=== PATIENT | female | born 1945 | race Two or more races ===

== ENCOUNTER 2020-10-01 13:48 | Inpatient (IN) | payer MEDICARE, MEDICAID, SELFPAY ==
[2020-10-01 14:08] VITALS: BP 134/72; PULSE 82; RESP 16; TEMP 37.5; O2SAT 95; BMI 42.2
--- NOTE | 2020-10-01 14:52 | XR_ITS ---
EXAMINATION: XR CHEST CLINICAL INFORMATION: Covid positive. Dizziness and generalized weakness. Productive cough. COMPARISON: March 19, 2018 TECHNIQUE: AP portable view of the chest was obtained. FINDINGS: There are bilateral regions of peripheral airspace disease most prominent at the left base. Heart normal size. No evidence of pulmonary edema. No pneumothorax or significant pleural effusion. XR/XR chest 1V IMPRESSION: Bilateral regions of airspace disease consistent with pneumonia.
--- NOTE | 2020-10-01 14:53 | ECG_ITS ---
Test Reason : UPPER RESPITORY Blood Pressure : / mmHG Vent. Rate : 090 BPM Atrial Rate : 090 BPM P-R Int : 190 ms QRS Dur : 084 ms QT Int : 368 ms P-R-T Axes : 080 -10 033 degrees QTc Int : 450 ms Normal sinus rhythm Normal ECG When compared with ECG of 18-DEC-2018 07:37, No significant change was found Referred By: Pam Barth Electronically Signed By:TAMMI DANIELSON MD
--- NOTE | 2020-10-01 14:53 | CT_ITS ---
EXAMINATION: CT HEAD WITHOUT CONTRAST CLINICAL INFORMATION: Generalized weakness and dizziness COMPARISON: None TECHNIQUE: Contiguous axial imaging was performed from the skull base to vertex without intravenous administration of contrast. This CT examination was performed using dose optimization techniques as appropriate, variously including the following: *Automated exposure control *Adjustment of mA and/or kV according to patient size (this includes techniques or standardized protocols for targeted exams where dose is matched to indication/reason for exam; i.e. extremities or head) *Use of iterative reconstruction technique DLP: 776 mGy-cm FINDINGS: There is no evidence of an extra-axial collection. There is no evidence of intra-axial or extra-axial hemorrhage. The ventricles and extra-axial CSF spaces are prominent suggestive of generalized atrophy. There is nonspecific periventricular white matter disease. No mass, mass effect or infarct is seen. Review at bone windows is normal. No skull fracture is seen. Visualized paranasal sinuses, mastoid air cells and middle ears are clear. There is a high attenuation soft tissue density in the scalp measuring 2 mm adjacent to the left occipital bone. It is uncertain whether this represents a calcification or could represent a soft tissue foreign body. Clinical correlation recommended. CT/CT head/brain wo con IMPRESSION: No acute intracranial findings. Mild generalized atrophy and nonspecific periventricular white matter disease.
[2020-10-01] MEDS: 0.9 % Sodium Chloride 1,000 ML 500 ML IVCONT (15:44)
[2020-10-01 15:46] VITALS: BP 127/70; PULSE 80; RESP 16; TEMP 37.8; O2SAT 95
[2020-10-01] MEDS: Acetaminophen 325 MG TABLET 975 MG PO (15:52)
[2020-10-01 16:00] LABS: INTERNATIONAL NORM RATIO 1.1 (0.9-1.1); Prothrombin Time 13.1 SEC (10.8-13.0)
[2020-10-01 16:04] LABS: Hemoglobin 10.6 g/dl (12.0-16.0); PLT CLUMP 1; Red Cell Distribution Width 12.5 % (11.0-16.0)
[2020-10-01 16:07] LABS: Hematocrit 32.4 % (37-47); Mean Corpuscular HGB Conc 32.7 g/dl (31.0-35.0); Mean Corpuscular Hemoglobin 31.7 pg (27.0-33.0); Mean Platelet Volume 11.3 fL (9.4-12.3); Platelet Count 143 X10*3/uL (160-400); Red Blood Count 3.34 X10*6/uL (4.20-5.50); White Blood Count 6.2 X10*3/uL (4.8-10.8)
--- NOTE | 2020-10-01 16:08 | ED_ITS ---
HPI - General Adult General Chief complaint: Upper Respiratory Symptoms Stated complaint: weakness, covid + Time Seen by Provider: 10/01/20 14:43 Source: patient Mode of arrival: ambulatory Limitations: language barrier (Urdu-speaking) History of Present Illness HPI narrative: 75yoF c PMHx of diabetes, hypertension and HLD presenting to the ED c c/o general weakness, dizziness, decreased appetite, generalized fatigue, body aches, fevers at 38 degrees and productive cough. She reports she was positive for COVID confirmed today. She reports she was tested on Sunday. Denies any other associated symptoms. Denies recent travel. Denies changes in vision, nausea/vomiting, chest pain or shortness of breath, abdominal pain or constipation. Related Data Home Medications Medication Instructions Recorded Confirmed amlodipine 2.5 mg tablet mg PO 09/22/20 09/22/20 dulaglutide 0.75 mg/0.5 mL mg SUBCUT 09/22/20 09/22/20 subcutaneous pen injector famotidine 40 mg tablet mg PO 09/22/20 09/22/20 furosemide 40 mg tablet mg PO 09/22/20 09/22/20 gabapentin 100 mg capsule mg PO 09/22/20 09/22/20 insulin glargine 100 unit/mL (3 unit SUBCUT 09/22/20 09/22/20 mL) subcutaneous pen insulin lispro 100 unit/mL unit SUBCUT 09/22/20 09/22/20 subcutaneous pen levothyroxine 25 mcg tablet mcg PO 09/22/20 09/22/20 losartan 100 mg tablet mg PO 09/22/20 09/22/20 metoprolol tartrate 25 mg tablet mg PO 09/22/20 09/22/20 omeprazole 20 mg capsule,delayed mg PO 09/22/20 09/22/20 release pen needle, diabetic 32 gauge x #50 ea 09/22/20 09/22/20 rosuvastatin 10 mg tablet mg PO 09/22/20 09/22/20 Allergies Allergy/AdvReac Type Severity Reaction Status Date / Time No Known Allergies Allergy Verified 09/22/20 16:21 [No Known Allergies*] Review of Systems Review of Systems: Constitutional : + Fever, + Chills, + Fatigue, + Malaise ENT/Mouth : No Ear Pain, No Nasal Congestion, No Sinus Pain, No sore throat, No Rhinorrhea Eyes: No Eye Pain, No Swelling, No Redness, No Foreign Body, No Discharge, No Vision Changes Cardiovascular : No Chest Pain, No SOB, No Dyspnea on Exertion, No Orthopnea, No Palpitations Respiratory : + Cough, + Sputum, No Wheezing, No Dyspnea Gastrointestinal : No Nausea, No Vomiting, + Diarrhea, No Constipation, No abdominal Pain, No Hematochezia, No Melena Genitourinary : No Dysuria, No Urinary Frequency, No Urinary Incontinence, No Urgency, No Flank Pain Musculoskeletal : No joint pain, + Myalgias Skin : No lacerations Neuro : No Numbness, No Paresthesias, No Loss of Consciousness, + Dizziness, No Headache Yes all other systems are reviewed and are negative [facility] Past Medical History Attestation statement: The following information was validated with the patient. Medical History Arthritis History of hysteroscopy History of right breast cancer HTN (hypertension) Hyperlipemia Osteoporosis Type 2 diabetes mellitus Surgical History H/O eye surgery H/O right mastectomy History of tubal ligation Social History Social History Alcohol intake: never Smoking Status: Never smoker Use of substances other than those prescribed or required for medical reasons: No Advance Directives: No Advance Directives Information Provided: Yes Sexual orientation: Straight/Heterosexual Gender identity: female Physical Exam Vital Signs: Vital Signs: Last Vital Signs Temp 100.0 F 10/01/20 15:46 Pulse 80 10/01/20 15:46 Resp 16 10/01/20 15:46 BP 127/70 10/01/20 15:46 Pulse Ox 95 10/01/20 15:46 Body Mass Index 42.2 Vital signs have been reviewed as normal and appeared to be correct. Blood pressure normal. Heart rate normal. Respiration rate normal. Temperature normal. Oxygen saturation normal. Appearance: Alert. Oriented X3. No acute distress. Head: Normal external exam. Normocephalic. Atraumatic. Able to rotate head bilaterally. Eyes: PERRLA. EOMI. No nystagmus noted. Conjunctiva and sclera normal. Eyelids normal. Corneal reflex normal. ENT: EAC normal. TM's Normal. Hearing normal. Pharynx normal. Uvula midline. tongue midline. Moist mucous membranes. No trismus noted. No drooling noted. No muffled voice noted. Neck: Normal inspection. Neck supple. FROM. No adenopathy. Thyroid Normal. No meningeal signs. No neck mass noted. CVS: Normal heart rate and rhythm. Heart sound normal. No murmurs noted. Pulses normal throughout. Respiratory: No respiratory distress. Painless inspiration. Breath sounds normal. No wheezes/rales/rhonchi noted. Chest nontender. No accessory muscle usage noted or decreased air movement noted. Abdomen: Soft and nontender. Bowel sounds normal in all 4 quadrants. No distention noted. No organomegaly noted. No visible injury noted. Back: No CVA tenderness. Full range of motion noted. Skin: Skin warm and dry. Normal skin color. Normal skin turgor. No rashes/lesions/lacerations noted. Extremities: No lower extremity edema. Extremities exhibit normal range of motion. Extremities nontender. Able to shrug shoulders bilaterally and keep up against resistance. Neuro: Oriented X 3. No motor deficit. No sensory deficit. Reflexes normal. Moving all extremities. No focal motor deficits. Cranial nerves II-XI intact bilaterally. Facial strength normal. Normal cognition. Speech normal. Gait normal. Strength 5/5 throughout. No pronator drift. No tremor noted. No fasciculations noted. Muscle tone normal throughout. No asterixis noted. [id number] test normal. Heel to lehman test normal. Tandem gait normal. Does not sway with eyes open. Romberg test negative. Rapid alternating movement upper extremity normal. Rapid alternating movement lower extremity normal. Hand drop from overhead-Mrs. face. No rigidity noted. NIHSS score 0. Course Course Course Narrative: 14:52PM - 75yoF c PMHx of diabetes, hypertension and HLD presenting to the ED c c/o general weakness, dizziness, decreased appetite, generalized fatigue, body aches, fevers at 38 degrees and productive cough. She reports she was positive for COVID confirmed today. - Concern for CVA vs complications from covid including pna vs electrolyte abnormality - Plan: Labs, CT scan of brain, EKG, CXR. Provide 500 mL of IV fluids as patient requested. And re-evaluate Reevaluation(s) Reevaluation #1: - Patient's troponin was elevated at 27.5 although EKG is normal sinus rhythm with nonspecific ST and T-wave abnormalities otherwise no acute ischemic changes noted. And patient did not complain of any chest pain and is still denying active chest pain. Therefore will repeat a troponin at 18:40PM. - chest x-ray revealed bilateral regions of airspace disease consistent with pneumonia although patient is not hypoxic at this time. Will continue to monitor. Time: 16:34 Medical Decision Making Medical Records Medical records reviewed: Yes I reviewed the patient's medical records. Lab Data Lab results reviewed: Yes I reviewed the patient's lab results. Result diagrams: 10/01/20 15:41 10/01/20 15:41 Labs: Lab Results 10/01/20 10/01/20 Range/Units 15:41 15:41 PT 13.1 H (10.8-13.0) SEC INR 1.1 (0.9-1.1) Sodium Cancelled Potassium Cancelled Chloride Cancelled Carbon Dioxide Cancelled Anion Gap Cancelled BUN Cancelled Creatinine Cancelled Estim Creat Clear Calc Cancelled Estimated GFR Cancelled Random Glucose Cancelled Calcium Cancelled Magnesium Cancelled Total Bilirubin Cancelled Direct Bilirubin Cancelled AST Cancelled ALT Cancelled Alkaline Phosphatase Cancelled Total Protein Cancelled Albumin Cancelled Imaging Data Chest x-ray: Attestation: I personally reviewed and interpreted this imaging study as follows: Radiologist's impression: FINDINGS: There are bilateral regions of peripheral airspace disease most prominent at the left base. Heart normal size. No evidence of pulmonary edema. No pneumothorax or significant pleural effusion. XR/XR chest 1V IMPRESSION: Bilateral regions of airspace disease consistent with pneumonia. ECG Data Attestation: I personally reviewed and interpreted this ECG as follows: Interpretation: Normal sinus rhythm with a ventricular rate of [address] and T-wave abnormality normal QRS/QT/QTC interval. No acute ischemic changes. Unable to compare to prior as system is down. Discharge Plan Discharge Prescriptions: No Action (DME) pen needle, diabetic 32 gauge x /32 needle See Rx Instructions ea .ROUTE .MEDSUPPLY Qty: 50 RF: 0 metoprolol tartrate 25 mg tablet PO RF: 0 rosuvastatin 10 mg tablet PO RF: 0 losartan 100 mg tablet PO RF: 0 gabapentin 100 mg capsule PO RF: 0 omeprazole 20 mg capsule,delayed release(DR/EC) PO RF: 0 levothyroxine 25 mcg tablet PO RF: 0 amlodipine 2.5 mg tablet PO RF: 0 Trulicity 0.75 mg/0.5 mL pen injector subcut RF: 0 furosemide 40 mg tablet PO RF: 0 Lantus Solostar U-100 Insulin 100 unit/mL (3 mL) insulin pen subcut RF: 0 famotidine 40 mg tablet PO RF: 0 insulin lispro 100 unit/mL insulin pen subcut RF: 0
[2020-10-01 16:20] LABS: B Type Natriuretic Peptide 61 pg/mL (<100)
[2020-10-01 16:24] LABS: Troponin-I High Sensitivity 27.5 ng/L (<3.5-17.0)
[2020-10-01 16:57] LABS: Atypical Lymph Absolute Manual 0.4 x10*3/uL; Atypical Lymphs Percent Manual 7 % (0-6); Band Neutrophils Percent 8 % (3-5); Lymphocytes Absolute Manual 0.8 X10*3/uL (0.6-4.8); Lymphocytes Percent Manual 13 % (20-40); Monocytes Absolute Manual 0.2 X10*3/uL (0.0-1.2); Monocytes Percent Manual 4 % (2-11); Neutrophils Absolute Manual 4.7 X10*3/uL (2.2-7.9); Neutrophils Percent Manual 68 % (45-73); Nucleated Red Blood Cells 1 /100WBC (0-0)
[2020-10-01 17:00] LABS: Hypochromasia 1+; RBC Morphology NOTED
[2020-10-01 17:01] LABS: Platelet Estimate NORMAL (NORMAL)
[2020-10-01 17:02] LABS: Large Platelet PRESENT; Platelet Morphology Comment NORMAL
[2020-10-01 18:01] VITALS: BP 137/70; PULSE 83; RESP 17; O2SAT 94
[2020-10-01 18:29] LABS: Anion Gap 16 (12-20); Blood Urea Nitrogen 40 mg/dL (9-16); Calcium 7.7 mg/dL (8.4-10.2); Carbon Dioxide 21 mmol/L (22-29); Chloride 99 mmol/L (96-108); Creatinine Clr Calc Pharmacy 23.5; Estimated Glomerular Filt Rate 18; Glucose Random 317 mg/dL (60-115); Potassium 4.4 mmol/l (3.3-5.1); Sodium 132 mmol/L (135-145)
[2020-10-01 18:51] LABS: Troponin-I High Sensitivity 23.6 ng/L (<3.5-17.0)
[2020-10-01 19:13] VITALS: BP 138/78; PULSE 86; RESP 20; O2SAT 95
[2020-10-01 19:22] LABS: C Reactive Protein 13.36 mg/dL (< or = 0.50); Lactate Dehydrogenase 325 U/L (122-220)
[2020-10-01 19:44] LABS: Ferritin 927 ng/mL (10-250)
[2020-10-01 19:48] LABS: Glucose Urine UA 250 MG/DL (NEG); Leukocyte Esterase Urine 1+ (NEG); Nitrite Urine NEG (NEG); Urine Blood 1+ (NEG); Urine Ketones NEG (NEG); Urine Protein 2+ MG/DL (NEG-TRACE)
[2020-10-01 19:50] LABS: Appearance Urine HAZY; Color Urine STRAW
[2020-10-01 19:59] LABS: Squamous Epithelial Cell Urine 1+ /LPF
[2020-10-01 20:00] LABS: Bacteria Urine 3+ /LPF; Renal Epithelial Cells Urine TRACE /LPF
--- NOTE | 2020-10-01 20:01 | PM.IMHP ---
History of Present Illness Date of Service: 10/01/20 <TATO Guillen - Last Filed: 10/01/20 21:48> Chief Complaint: fatigue <TATO Guillen - Last Filed: 10/01/20 21:48> this is a 75-year-old Uz[place]-speaking female who presents to the emergency department 1 week history of fatigue. Her son-in-law who is her [employer] SALES CLERK has recently tested positive for COVID-19. The past 1 week she has been feeling tired with intermittent dizziness and associated chills. She went to a drive up COVID testing site this past Sunday. her PCP informed her today that her tested returned positive. In the emergency department chest x-ray showed bilateral pneumonia. She initially denied any shortness of breath or significant cough And was not requiring any oxygen until she ambulated to and from the bathroom. At that time her oxygen saturation dropped to 89 % on room air. Lab work was significant for creatinine of 2.65. She received gentle IV fluid and the decision was made to admit her for further management. <TATO Guillen - Last Filed: 10/01/20 21:48> Review of Systems Review of Systems: Yes all other systems are reviewed and are negative <TATO Guillen - Last Filed: 10/01/20 21:48> Constitutional: Constitutional: Reports chills and Reports lethargy <TATO Guillen - Last Filed: 10/01/20 21:48> Cardiovascular: Cardiovascular: Denies chest pain and Denies palpitations <TATO Guillen - Last Filed: 10/01/20 21:48> Respiratory: Respiratory: Denies cough <TATO Guillen - Last Filed: 10/01/20 21:48> Endocrine: Endocrine: Denies palpitations <TATO Guillen - Last Filed: 10/01/20 21:48> [facility] Medical History: Medical History Arthritis History of hysteroscopy History of right breast cancer HTN (hypertension) Hyperlipemia Hypothyroidism Type 2 diabetes mellitus <TATO Guillen Last Filed: 10/01/20 21:48> Functional capacity: uses cane/walker <TATO Guillen - Last Filed: 10/01/20 21:48> Pertinent family history: No history of early coronary artery disease <TATO Guillen - Last Filed: 10/01/20 21:48> Surgical History: Surgical History H/O eye surgery H/O right mastectomy History of tubal ligation <TATO Guillen - Last Filed: 10/01/20 21:48> Social History: Social History Household Members: Family Housing: Apartment Do you presently have visiting nurse or other home services: Yes Alcohol intake: never Smoking Status: Never smoker Use of substances other than those prescribed or required for medical reasons: No Currently Displaying Signs/Symptoms of Drug Intoxication Withdrawal: No Have you been hit, kicked, punched, or otherwise hurt by someone within the past year? If so, by whom?: No Do you feel safe in your current relationship?: Yes Is there a partner from a previous relationship who is making you feel unsafe now?: No Are you made to feel afraid or neglected: No Advance Directives: No Advance Directives Information Provided: Yes Do you have thoughts of harming others: None Do you have a plan to hurt others: No Plan Recently lost weight without trying: No service: No Current occupational status: disabled Sexual orientation: Straight/Heterosexual Gender identity: female <TATO Guillen Last Filed: 10/01/20 21:48> Meds Allergies/Adverse reactions: Allergies Allergy/AdvReac Type Severity Reaction Status Date / Time No Known Allergies Allergy Verified 10/04/20 16:58 [No Known Allergies*] <TATO Guillen Last Filed: 10/01/20 21:48> Home medications: Home Medications Medication Instructions Recorded Confirmed Type amlodipine 2.5 mg tablet 2.5 mg PO DAILY 09/22/20 10/04/20 History dulaglutide 0.75 mg/0.5 mL 0.75 mg SUBCUT WE 09/22/20 10/04/20 History subcutaneous pen injector furosemide 40 mg tablet 40 mg PO BID 09/22/20 10/04/20 History gabapentin 100 mg capsule 100 mg PO BEDTIME 09/22/20 10/04/20 History insulin glargine 100 unit/mL (3 15 unit SUBCUT DAILY 09/22/20 10/04/20 History mL) subcutaneous pen levothyroxine 25 mcg tablet 25 mcg PO DAILY 09/22/20 10/04/20 History losartan 100 mg tablet 100 mg PO DAILY 09/22/20 10/04/20 History metoprolol tartrate 25 mg tablet 25 mg PO BID 09/22/20 10/04/20 History omeprazole 20 mg capsule,delayed 20 mg PO DAILY 09/22/20 10/04/20 History release pen needle, diabetic 32 gauge x #50 ea 09/22/20 10/04/20 History rosuvastatin 10 mg tablet 10 mg PO BEDTIME 09/22/20 10/04/20 History aspirin 81 mg PO DAILY 10/01/20 10/04/20 History <TATO Guillen - Last Filed: 10/01/20 21:48> Physical Exam Vital Signs and Narrative: Vital Signs: Last Vital Signs Temp 100.0 F 10/01/20 15:46 Pulse 86 10/01/20 19:13 Resp 20 10/01/20 19:13 BP 138/78 10/01/20 19:13 Pulse Ox 95 10/01/20 19:13 Body Mass Index 42.2 <TATO Guillen Last Filed: 10/01/20 21:48> Const: Nutritional Appearance: well nourished <TATO Guillen Last Filed: 10/01/20 21:48> Orientation/consciousness: patient oriented x3 <TATO Guillen Last Filed: 10/01/20 21:48> HENMT: Head: Yes normocephalic and Yes atraumatic <TATO Guillen Last Filed: 10/01/20 21:48> Eyes: Sclerae: sclerae normal <TATO Guillen Last Filed: 10/01/20 21:48> Chest: Chest palpation & inspection: normal inspection of the chest <TATO Guillen Last Filed: 10/01/20 21:48> Resp: Effort & Inspection: labored <TATO Guillen - Last Filed: 10/01/20 21:48> Cardio: Rate: regular rate <TATO Guillen - Last Filed: 10/01/20 21:48> Rhythm: regular rhythm <TATO Guillen - Last Filed: 10/01/20 21:48> GI: Palpation (GI): Soft to palpation and nontender <TATO Guillen - Last Filed: 10/01/20 21:48> Skin: General skin exam: no rashes or lesions noted <TATO Guillen - Last Filed: 10/01/20 21:48> Neuro: General: patient oriented x3 <TATO Guillen - Last Filed: 10/01/20 21:48> Cranial nerves: Yes CN's II-XII intact bilaterally and Yes Bilaterally intact EOM present <TATO Guillen - Last Filed: 10/01/20 21:48> Extrem: General: Yes normal to inspection <TATO Guillen - Last Filed: 10/01/20 21:48> Results Labs CBC and Chem 7: : 10/03/20 06:48 10/03/20 06:48 <TATO Guillen - Last Filed: 10/01/20 21:48> Labs: Laboratory Results - last 24 hr 10/01/20 10/01/20 10/01/20 15:41 15:41 15:41 WBC 6.2 RBC 3.34 L Hgb 10.6 L Hct 32.4 L MCV 97.0 MCH 31.7 MCHC 32.7 RDW 12.5 Plt Count 143 L MPV 11.3 Immature Gran % (Auto) Cancelled Neut % (Auto) Cancelled Lymph % (Auto) Cancelled Pratt % (Auto) Cancelled Eos % (Auto) Cancelled Baso % (Auto) Cancelled Lymph # (Auto) Cancelled Pratt # (Auto) Cancelled Eos # (Auto) Cancelled Baso # (Auto) Cancelled Abs Immat Gran (auto) Cancelled Absolute Neuts (auto) Cancelled Absolute Nucleated RBC 0.000 Nucleated RBC % (auto) 0.0 Neutrophils % (Manual) 68 Band Neutrophils % 8 H Lymphocytes % (Manual) 13 L Atypical Lymphs % (Man) 7 H Monocytes % (Manual) 4 Abs Neuts (Manual) 4.7 Lymphocytes # (Manual) 0.8 Atyp Lymphs # (Manual) 0.4 Monocytes # (Manual) 0.2 Nucleated RBCs 1 H Platelet Estimate NORMAL Large Platelets PRESENT Plt Morphology Comment NORMAL RBC Morphology NOTED Hypochromasia 1+ PT 13.1 H INR 1.1 Sodium Cancelled Potassium Cancelled Chloride Cancelled Carbon Dioxide Cancelled Anion Gap Cancelled BUN Cancelled Creatinine Cancelled Estim Creat Clear Calc Cancelled Estimated GFR Cancelled Random Glucose Cancelled Calcium Cancelled Magnesium Cancelled Ferritin Total Bilirubin Cancelled Direct Bilirubin Cancelled AST Cancelled ALT Cancelled Alkaline Phosphatase Cancelled Lactate Dehydrogenase Troponin I High Sens C-Reactive Protein B-Natriuretic Peptide Total Protein Cancelled Albumin Cancelled Procalcitonin Urine Color Urine Appearance Urine pH Ur Specific [place] Urine Protein Urine Glucose (UA) Urine Ketones Urine Blood Urine Nitrite Ur Leukocyte Esterase Urine RBC Urine WBC Ur Squamous Epith Cells Ur Renal Epithelial Cell Urine Bacteria 10/01/20 10/01/20 10/01/20 15:41 15:41 17:59 WBC RBC Hgb Hct MCV MCH MCHC RDW Plt Count MPV Immature Gran % (Auto) Neut % (Auto) Lymph % (Auto) Pratt % (Auto) Eos % (Auto) Baso % (Auto) Lymph # (Auto) Pratt # (Auto) Eos # (Auto) Baso # (Auto) Abs Immat Gran (auto) Absolute Neuts (auto) Absolute Nucleated RBC Nucleated RBC % (auto) Neutrophils % (Manual) Band Neutrophils % Lymphocytes % (Manual) Atypical Lymphs % (Man) Monocytes % (Manual) Abs Neuts (Manual) Lymphocytes # (Manual) Atyp Lymphs # (Manual) Monocytes # (Manual) Nucleated RBCs Platelet Estimate Large Platelets Plt Morphology Comment RBC Morphology Hypochromasia PT INR Sodium Potassium Chloride Carbon Dioxide Anion Gap BUN Creatinine Estim Creat Clear Calc Estimated GFR Random Glucose Calcium Magnesium Ferritin Total Bilirubin Direct Bilirubin AST ALT Alkaline Phosphatase Lactate Dehydrogenase Troponin I High Sens 27.5 H 23.6 H C-Reactive Protein B-Natriuretic Peptide 61 Total Protein Albumin Procalcitonin Urine Color Urine Appearance Urine pH Ur Specific [place] Urine Protein Urine Glucose (UA) Urine Ketones Urine Blood Urine Nitrite Ur Leukocyte Esterase Urine RBC Urine WBC Ur Squamous Epith Cells Ur Renal Epithelial Cell Urine Bacteria 10/01/20 10/01/20 10/01/20 17:59 17:59 19:22 WBC RBC Hgb Hct MCV MCH MCHC RDW Plt Count MPV Immature Gran % (Auto) Neut % (Auto) Lymph % (Auto) Pratt % (Auto) Eos % (Auto) Baso % (Auto) Lymph # (Auto) Pratt # (Auto) Eos # (Auto) Baso # (Auto) Abs Immat Gran (auto) Absolute Neuts (auto) Absolute Nucleated RBC Nucleated RBC % (auto) Neutrophils % (Manual) Band Neutrophils % Lymphocytes % (Manual) Atypical Lymphs % (Man) Monocytes % (Manual) Abs Neuts (Manual) Lymphocytes # (Manual) Atyp Lymphs # (Manual) Monocytes # (Manual) Nucleated RBCs Platelet Estimate Large Platelets Plt Morphology Comment RBC Morphology Hypochromasia PT INR Sodium 132 L Potassium 4.4 Chloride 99 Carbon Dioxide 21 L Anion Gap 16 BUN 40 H Creatinine 2.65 H Estim Creat Clear Calc 23.5 Estimated GFR 18 Random Glucose 317 H Calcium 7.7 L Magnesium Ferritin 927 H Total Bilirubin Direct Bilirubin AST ALT Alkaline Phosphatase Lactate Dehydrogenase 325 H Troponin I High Sens C-Reactive Protein 13.36 H B-Natriuretic Peptide Total Protein Albumin Procalcitonin 0.70 Urine Color STRAW Urine Appearance HAZY Urine pH 6.0 Ur Specific [place] 1.010 Urine Protein 2+ H Urine Glucose (UA) 250 H Urine Ketones NEG Urine Blood 1+ H Urine Nitrite NEG Ur Leukocyte Esterase 1+ H Urine RBC 1-4 Urine WBC 5-9 H Ur Squamous Epith Cells 1+ Ur Renal Epithelial Cell TRACE Urine Bacteria 3+ <TATO Guillen - Last Filed: 10/01/20 21:48> Imaging Radiologist's Impressions: Impressions Chest X-Ray 10/01/20 14:52 IMPRESSION: Bilateral regions of airspace disease consistent with pneumonia. Head CT 10/01/20 14:53 IMPRESSION: No acute intracranial findings. Mild generalized atrophy and nonspecific periventricular white matter disease. <TATO Guillen Last Filed: 10/01/20 21:48> Assessment and Plan (1) COVID-19: Status: Deleted <TATO Guillen - Last Filed: 10/01/20 21:48> (2) Pneumonia due to COVID-19 virus: Status: Acute <TATO Guillen - Last Filed: 10/01/20 21:48> This is a 75 year old female with a history DM, HTN, HLD who presents with fatigue after being diagnosed with covid19 and found to have pneumonia acute respiratory failure with hypoxia oxygen saturation 89% on room air secondary to coronavirus continue supplemental oxygen as needed COVID-19 pneumonia will start dexamethasone -supplemental o2 prn CKD SCr 2.65 today, has been above 2 in the past Gentle IVF given in ED Hold Lasix, losartan Follow renal function mild elevated in trop Repeat flat. no chest pain EKG no ischemic changes Diabetes -SSI -Continue Lantus -hold trulicity HTN continue Norvasc, metoprolol hold Lasix, losartan hypothyroidism - continue Synthroid DVT prophylaxis- heparin code status- full code this case was discussed with Dr. Pina <TATO Guillen - Last Filed: 10/01/20 21:48>
[2020-10-01 20:30] LABS: Influenza A PCR NEGATIVE (Negative); Influenza B PCR NEGATIVE (Negative); Resp Syncy Virus RNA Qual PCR NEGATIVE (Negative); SARS COV2 PCR INHOUSE POSITIVE (Negative)
[2020-10-01] MEDS: dexAMETHasone sod phosphate 4 MG/ML VIAL 6 MG IVPUSH (20:40)
--- NOTE | 2020-10-01 20:44 | PC.NURSE ---
pt has been resting quietly, denies pain at this time.
[2020-10-01 20:45] VITALS: BP 143/76; PULSE 93; RESP 21; TEMP 37.7; O2SAT 93
[2020-10-02] VITALS (9 sets, daily range): BP systolic 125–173; BP diastolic 68–80; PULSE 78–104; RESP 18–20; TEMP 36.2–37.3; O2SAT 92–95
[2020-10-02 00:07] LABS: Glucose, Whole Blood 332 mg/dL (60-115)
[2020-10-02] MEDS: Gabapentin 100 MG CAPSULE PO ×2 (00:11→21:42)
[2020-10-02] MEDS: Heparin Sodium,Porcine 5,000 UNIT/ML VIAL 5000 UNIT SUBCUT ×3 (00:11→23:56)
[2020-10-02] MEDS: Metoprolol Tartrate 25 MG TABLET PO ×3 (00:11→21:42)
[2020-10-02] MEDS: Insulin Lispro 100 UNIT/ML 3 ML VIAL SUBCUT ×6 (00:12→21:42)
[2020-10-02] MEDS: 0.9 % Sodium Chloride Flush 3 ML SYRINGE IVFLUSH ×4 (00:12→23:56)
--- NOTE | 2020-10-02 05:10 | P.EN_ITS ---
Event Note Date of Service: 10/02/20 Event Note: patient seen and examined independently, we with LILIAM note assessm ent and plan. Patient will be admitted for COVID-19 pneumonia, will continue to monitor respiratory status, was started on Decadron daily
[2020-10-02] MEDS: Levothyroxine Sodium 25 MCG TABLET PO (05:45)
[2020-10-02] MEDS: Omeprazole 20 MG CAPSULE.DR PO (05:45)
[2020-10-02 07:17] LABS: Hematocrit 32.1 % (37-47); Hemoglobin 10.4 g/dl (12.0-16.0); Imm Gran Abs Auto 0.03 X10*3/uL (0.00-0.03); Imm Gran Pct Auto 0.6 % (0.0-0.4); Lymphocytes Absolute Auto 1.1 X10*3/uL (1.2-4.9); Lymphocytes Percent Auto 20.3 % (20-40); MANUAL DIFF FLAG SCAN; Mean Corpuscular HGB Conc 32.4 g/dl (31.0-35.0); Mean Corpuscular Volume 95.5 fL (80-98); Mean Platelet Volume 10.7 fL (9.4-12.3); Monocytes Absolute Auto 0.2 X10*3/uL (0.1-1.2); Monocytes Percent Auto 4.7 % (2-11); Neutrophils Absolute Auto 3.8 X10*3/uL (2.0-8.3); Neutrophils Percent Auto 74.4 % (45-73); Platelet Count 179 X10*3/uL (160-400); Red Blood Count 3.36 X10*6/uL (4.20-5.50); Red Cell Distribution Width 12.5 % (11.0-16.0); SCAN SMEAR FLAG 1; White Blood Count 5.2 X10*3/uL (4.8-10.8)
[2020-10-02 07:40] LABS: Anion Gap 15 (12-20); Blood Urea Nitrogen 38 mg/dL (9-16); Calcium 8.4 mg/dL (8.4-10.2); Carbon Dioxide 24 mmol/L (22-29); Chloride 99 mmol/L (96-108); Creatinine Clr Calc Pharmacy 25.9; Estimated Glomerular Filt Rate 20; Glucose Random 374 mg/dL (60-115); Potassium 5.2 mmol/l (3.3-5.1); Sodium 133 mmol/L (135-145)
[2020-10-02] MEDS: dexAMETHasone sod phosphate 4 MG/ML VIAL 6 MG IVPUSH (08:03)
[2020-10-02] MEDS: Aspirin Enteric Coated 81 MG TABLET.DR PO (08:03)
[2020-10-02] MEDS: Insulin Glargine,Hum.rec.anlog 100 UNIT/ML 10 ML VIAL 15 UNIT SUBCUT (08:03)
[2020-10-02 08:09] LABS: Glucose, Whole Blood 382 mg/dL (60-115)
[2020-10-02 08:41] LABS: SLIDE REVIEW VERIFIED
[2020-10-02] MEDS: amLODIPine Besylate 2.5 MG TABLET PO (09:52)
--- NOTE | 2020-10-02 11:20 | P.PNIM_ITS ---
Subjective Subjective Date of Service: 10/02/20 Interval History: feels ok Cardiovascular Cardiovascular: Reports no additional cardiovascular complaints Gastrointestinal Gastrointestinal: Reports no additional gastrointestinal complaints Physical Exam Vital Signs: Vital Signs: Last Vital Signs Temp 97.3 F 10/02/20 08:00 Pulse 80 10/02/20 09:52 Resp 18 10/02/20 08:00 BP 173/80 H 10/02/20 09:52 Pulse Ox 93 10/02/20 08:00 Body Mass Index 42.2 General: AO X 3, no acute distress Resp: CTA bilateral CVS: S1,S2,RRR GI: soft, non tender, non distended Neuro: motor grossly intact Psych: appropriate affect Objective Data Current Medications Generic Name Dose Route Start Last Admin Trade Name Freq PRN Reason Stop Dose Admin Acetaminophen 650 mg 10/01/20 23:43 Acetaminophen 325 Mg Tablet PO Q6H PRN Pain, Mild (Pain Scale 1-3) Albuterol Sulfate 2 puff 10/01/20 23:43 Albuterol Sulfate 90 Mcg 8 Gm Inhaler INHALE RQ4H PRN Shortness of Breath Amlodipine Besylate 2.5 mg 10/02/20 09:00 10/02/20 09:52 Amlodipine Besylate 2.5 Mg Tablet PO 2.5 mg DAILY CATHLEEN Administration Protocol Aspirin 81 mg 10/02/20 09:00 10/02/20 08:03 Aspirin Enteric Coated 81 Mg Tablet.Dr PO 81 mg DAILY CATHLEEN Administration Atorvastatin Calcium 40 mg 10/02/20 21:00 Atorvastatin Calcium 40 Mg Tablet PO BEDTIME CATHLEEN Dexamethasone Sodium Phosphate 6 mg 10/01/20 20:00 10/02/20 08:03 Dexamethasone Sod Phosphate 4 Mg/Ml Vial IVPUSH 6 mg DAILY CATHLEEN Administration Docusate Sodium 100 mg 10/01/20 23:43 Docusate Sodium 100 Mg Capsule PO DAILY PRN Constipation Gabapentin 100 mg 10/01/20 23:43 10/02/20 00:11 Gabapentin 100 Mg Capsule PO 100 mg BEDTIME CATHLEEN Administration Heparin Sodium (Porcine) 5,000 unit 10/01/20 23:43 10/02/20 00:11 Heparin Sodium,Porcine 5,000 Unit/Ml Vial SUBCUT 5,000 unit Q12H CATHLEEN Administration Insulin Glargine 15 unit 10/02/20 09:00 10/02/20 08:03 Insulin Glargine,Hum.Rec.Anlog 100 Unit/Ml 10 Ml Vial SUBCUT 15 unit DAILY CATHLEEN Administration Insulin Human Lispro 0 unit 10/01/20 23:43 10/02/20 08:02 Insulin Lispro 100 Unit/Ml 3 Ml Vial SUBCUT 10 unit [facility] Administration Protocol Levothyroxine Sodium 25 mcg 10/02/20 06:30 10/02/20 05:45 Levothyroxine Sodium 25 Mcg Tablet PO 25 mcg DAILY@0630 [facility] Administration Metoprolol Tartrate 25 mg 10/01/20 23:43 10/02/20 09:52 Metoprolol Tartrate 25 Mg Tablet PO 25 mg BID [facility] Administration Protocol Omeprazole 20 mg 10/02/20 06:30 10/02/20 05:45 Omeprazole 20 Mg Capsule.Dr PO 20 mg DAILY@0630 [facility] Administration Ondansetron HCl 4 mg 10/01/20 23:43 Ondansetron Hcl 4 Mg/2 Ml Vial IVPUSH Q8H PRN Nausea and Vomiting Pharmacy Consult 1 each 10/01/20 19:00 Consult Rx Perform Med Rec MISCELLANE ONCE PRN Consult order Sodium Chloride 3 ml 10/02/20 00:00 10/02/20 08:02 0.9 % Sodium Chloride Flush 3 Ml Syringe IVFLUSH 3 ml QSHIFT [facility] Administration Labs CBC & Chem 7: 10/02/20 06:42 10/02/20 06:42 Microbiology Microbiology Results: Microbiology 10/01/20 19:50 Urine clean catch - Clean Catch Midstream Urine Culture - Final Assessment and Plan (1) COVID-19: Status: Deleted (2) Pneumonia due to COVID-19 virus: Status: Acute Assessment and Plan: This is a 75 year old female with a history DM, HTN, HLD who presents with fatigue after being diagnosed with covid19 and found to have pneumonia Acute hypoxic respiratory failure secondary to COVID-19 pneumonia with high risk comorbidity of advanced age, diabetes, htn, and morbid obesity continue dexamethasone wean O2 as tolerated CKD 4 stable diabetes insulin hypothyroidism Synthroid
[2020-10-02 12:11] LABS: Glucose, Whole Blood 387 mg/dL (60-115)
[2020-10-02 16:35] LABS: Glucose, Whole Blood 367 mg/dL (60-115)
[2020-10-02] MEDS: Insulin Lispro 100 UNIT/ML 3 ML VIAL 10 UNIT SUBCUT (18:23)
[2020-10-02 21:35] LABS: Glucose, Whole Blood 316 mg/dL (60-115)
[2020-10-02] MEDS: Atorvastatin Calcium 40 MG TABLET PO (21:42)
[2020-10-03 03:48] VITALS: BP 117/63; PULSE 70; RESP 18; TEMP 36.1; O2SAT 99
[2020-10-03] MEDS: Levothyroxine Sodium 25 MCG TABLET PO (05:30)
[2020-10-03] MEDS: Omeprazole 20 MG CAPSULE.DR PO (05:30)
[2020-10-03 07:31] LABS: Basophils Percent Auto 0.1 % (0-2); Hemoglobin 10.7 g/dl (12.0-16.0); Imm Gran Abs Auto 0.04 X10*3/uL (0.00-0.03); Imm Gran Pct Auto 0.4 % (0.0-0.4); Lymphocytes Absolute Auto 1.3 X10*3/uL (1.2-4.9); Lymphocytes Percent Auto 14.3 % (20-40); MANUAL DIFF FLAG SCAN; Mean Corpuscular HGB Conc 32.4 g/dl (31.0-35.0); Mean Corpuscular Volume 95.7 fL (80-98); Mean Platelet Volume 10.4 fL (9.4-12.3); Monocytes Absolute Auto 0.5 X10*3/uL (0.1-1.2); Monocytes Percent Auto 5.3 % (2-11); Neutrophils Absolute Auto 7.2 X10*3/uL (2.0-8.3); Neutrophils Percent Auto 79.9 % (45-73); Platelet Count 229 X10*3/uL (160-400); Red Blood Count 3.45 X10*6/uL (4.20-5.50); Red Cell Distribution Width 12.3 % (11.0-16.0); SCAN SMEAR FLAG 1
[2020-10-03 07:36] LABS: Glucose, Whole Blood 350 mg/dL (60-115)
[2020-10-03 07:37] LABS: D Dimer 764 NG/ML
[2020-10-03] MEDS: dexAMETHasone sod phosphate 4 MG/ML VIAL 6 MG IVPUSH (07:58)
[2020-10-03] MEDS: Aspirin Enteric Coated 81 MG TABLET.DR PO (07:58)
[2020-10-03] MEDS: Insulin Lispro 100 UNIT/ML 3 ML VIAL SUBCUT ×2 (07:58→12:43)
[2020-10-03] MEDS: Insulin Glargine,Hum.rec.anlog 100 UNIT/ML 10 ML VIAL 15 UNIT SUBCUT (07:58)
[2020-10-03] MEDS: 0.9 % Sodium Chloride Flush 3 ML SYRINGE IVFLUSH (07:59)
[2020-10-03 08:00] VITALS: BP 140/78; PULSE 84; RESP 18; TEMP 36.8; O2SAT 93
[2020-10-03 08:19] LABS: SLIDE REVIEW VERIFIED
[2020-10-03 08:34] LABS: Blood Urea Nitrogen 43 mg/dL (9-16); Calcium 8.7 mg/dL (8.4-10.2); Creatinine Clr Calc Pharmacy 28.1; Estimated Glomerular Filt Rate 22
[2020-10-03 08:35] LABS: Anion Gap 16 (12-20); Carbon Dioxide 23 mmol/L (22-29); Chloride 100 mmol/L (96-108); Potassium 4.7 mmol/l (3.3-5.1); Sodium 134 mmol/L (135-145)
[2020-10-03 08:43] LABS: Glucose Fasting 396 mg/dL (60-99)
[2020-10-03 08:49] VITALS: BP 140/78; PULSE 84
[2020-10-03] MEDS: Metoprolol Tartrate 25 MG TABLET PO (08:49)
[2020-10-03] MEDS: amLODIPine Besylate 2.5 MG TABLET PO (08:49)
[2020-10-03] MEDS: Insulin Lispro 100 UNIT/ML 3 ML VIAL 10 UNIT SUBCUT (08:57)
--- NOTE | 2020-10-03 11:06 | P.DS_ITS ---
DS: Providers Provider Date of admission: 10/01/20 19:59 Primary care physician: Royal Pitt MD DS: Diagnosis Discharge Diagnosis (1) COVID-19: Status: Deleted (2) Pneumonia due to COVID-19 virus: Status: Acute (3) Type 2 diabetes mellitus: Status: Acute (4) CKD (chronic kidney disease), stage IV: Status: Acute DS: Medications Discharge Medications Home Medications: Home Medications Medication Instructions Recorded Confirmed amlodipine 2.5 mg tablet 2.5 mg PO DAILY 09/22/20 10/01/20 dulaglutide 0.75 mg/0.5 mL 0.75 mg SUBCUT WE 09/22/20 10/01/20 subcutaneous pen injector furosemide 40 mg tablet 40 mg PO BID 09/22/20 10/01/20 gabapentin 100 mg capsule 100 mg PO BEDTIME 09/22/20 10/01/20 insulin glargine 100 unit/mL (3 15 unit SUBCUT DAILY 09/22/20 10/01/20 mL) subcutaneous pen levothyroxine 25 mcg tablet 25 mcg PO DAILY 09/22/20 10/01/20 losartan 100 mg tablet 100 mg PO DAILY 09/22/20 10/01/20 metoprolol tartrate 25 mg tablet 25 mg PO BID 09/22/20 10/01/20 omeprazole 20 mg capsule,delayed 20 mg PO DAILY 09/22/20 10/01/20 release pen needle, diabetic 32 gauge x #50 ea 09/22/20 09/22/20 rosuvastatin 10 mg tablet 10 mg PO BEDTIME 09/22/20 10/01/20 aspirin 81 mg PO DAILY 10/01/20 10/01/20 DS: Summary Hospital Course Hospital Course: Patient was admitted for COVID19 pneumonia. She was given Decadron, and monitored. She improved and was able to ambulate without supplemental oxygen. She was afebrile. She will be discharged home to continue isolation until symptom free for 24 hours and at least 10 days from start of symptoms. She is instructed to monitor symptoms and return if she has any worsening shortness of breath or fevers. Time Spent with Patient Time attestation: Total time spent providing and/or coordinating discharge services: Physical Exam Vital Signs: Vital Signs: Last Vital Signs Temp 98.3 F 10/03/20 08:00 Pulse 84 10/03/20 08:49 Resp 18 10/03/20 08:00 BP 140/78 H 10/03/20 08:49 Pulse Ox 93 10/03/20 08:00 Body Mass Index 42.2 General: AO X 3, no acute distress Resp: CTA bilateral CVS: S1,S2,RRR GI: soft, non tender, non distended Neuro: motor grossly intact Psych: appropriate affect DS: Data Data Completed and Pending Labs on day of discharge: 10/01/20 14:52 XR chest 1V Stat 0.9 % Sodium Chloride [Ns] 1,000 ml IVCONT 500 mls/hr 10/01/20 14:53 ECG 12 lead EKG Stat EKG Documentation DIRECTED CT head/brain wo con Stat 10/01/20 15:38 Acetaminophen [Tylenol] 975 mg PO ONCE ONE 10/01/20 15:41 B Type Natriuretic Peptide Stat Prothrombin Time INR Stat Troponin-I High Sensitivity Stat 10/01/20 17:59 Basic Metabolic Panel Stat C Reactive Protein Stat Ferritin Stat Lactate Dehydrogenase Stat Procalcitonin Stat Troponin-I High Sensitivity Stat 10/01/20 19:11 Add Laboratory Test Stat 10/01/20 19:23 SARS-CoV2/FLU/RSV Stat 10/01/20 19:47 Transfer Order Routine 10/01/20 19:50 Urine Culture Routine 10/01/20 23:43 IV insert/maintain Q4HR Intake and Output QSHIFTE Vital Signs Q4HR 10/02/20 00:02 Glucose, Whole Blood Routine 10/02/20 06:42 Basic Metabolic Panel DAILY@0600 Complete Blood Count Auto Diff DAILY@0600 SLIDE REVIEW Routine 10/02/20 08:04 Glucose, Whole Blood Routine 10/02/20 11:48 Glucose, Whole Blood Routine 10/02/20 12:14 Insulin Lispro [Humalog] 5 unit SUBCUT ONCE ONE 10/02/20 16:29 Glucose, Whole Blood Routine 10/02/20 17:15 Insulin Lispro [Humalog] 10 unit SUBCUT ONCE ONE 10/02/20 21:31 Glucose, Whole Blood Routine 10/03/20 06:48 BMP [Basic Metabolic Panel Fasting] Routine Complete Blood Count Auto Diff Routine D Dimer Routine SLIDE REVIEW Routine 10/03/20 07:32 Glucose, Whole Blood Routine 10/03/20 08:50 Insulin Lispro [Humalog] 10 unit SUBCUT ONCE ONE Laboratory Last Values WBC 9.0 X10*3/uL (4.8-10.8) 10/03/20 06:48 RBC 3.45 X10*6/uL (4.20-5.50) L 10/03/20 06:48 Hgb 10.7 g/dl (12.0-16.0) L 10/03/20 06:48 Hct 33.0 % (37-47) L 10/03/20 06:48 MCV 95.7 fL (80-98) 10/03/20 06:48 MCH 31.0 pg (27.0-33.0) 10/03/20 06:48 MCHC 32.4 g/dl (31.0-35.0) 10/03/20 06:48 RDW 12.3 % (11.0-16.0) 10/03/20 06:48 Plt Count 229 X10*3/uL (160-400) D 10/03/20 06:48 MPV 10.4 fL (9.4-12.3) 10/03/20 06:48 Immature Gran % (Auto) 0.4 % (0.0-0.4) 10/03/20 06:48 Neut % (Auto) 79.9 % (45-73) H 10/03/20 06:48 Lymph % (Auto) 14.3 % (20-40) L 10/03/20 06:48 [place] % (Auto) 5.3 % (2-11) 10/03/20 06:48 Eos % (Auto) 0.0 % (0-4) 10/03/20 06:48 Baso % (Auto) 0.1 % (0-2) 10/03/20 06:48 Lymph # (Auto) 1.3 X10*3/uL (1.2-4.9) 10/03/20 06:48 [place] # (Auto) 0.5 X10*3/uL (0.1-1.2) 10/03/20 06:48 Eos # (Auto) 0.0 X10*3/uL (0.0-0.4) 10/03/20 06:48 Baso # (Auto) 0.0 X10*3/uL (0.0-0.2) 10/03/20 06:48 Abs Immat Gran (auto) 0.04 X10*3/uL (0.00-0.03) H 10/03/20 06:48 Absolute Neuts (auto) 7.2 X10*3/uL (2.0-8.3) 10/03/20 06:48 Absolute Nucleated RBC 0.000 X10*3/uL (0.0-0.012) 10/03/20 06:48 Nucleated RBC % (auto) 0.0 /100WBC (0.0-0.2) 10/03/20 06:48 Neutrophils % (Manual) 68 % (45-73) 10/01/20 15:41 Band Neutrophils % 8 % (3-5) H 10/01/20 15:41 Lymphocytes % (Manual) 13 % (20-40) L 10/01/20 15:41 Atypical Lymphs % (Man) 7 % (0-6) H 10/01/20 15:41 Monocytes % (Manual) 4 % (2-11) 10/01/20 15:41 Abs Neuts (Manual) 4.7 X10*3/uL (2.2-7.9) 10/01/20 15:41 Lymphocytes # (Manual) 0.8 X10*3/uL (0.6-4.8) 10/01/20 15:41 Atyp Lymphs # (Manual) 0.4 x10*3/uL 10/01/20 15:41 Monocytes # (Manual) 0.2 X10*3/uL (0.0-1.2) 10/01/20 15:41 Nucleated RBCs 1 /100WBC (0-0) H 10/01/20 15:41 Platelet Estimate NORMAL (NORMAL) 10/01/20 15:41 Large Platelets PRESENT 10/01/20 15:41 Plt Morphology Comment NORMAL 10/01/20 15:41 RBC Morphology NOTED 10/01/20 15:41 Hypochromasia 1+ 10/01/20 15:41 Smear Tech's Comments VERIFIED 10/03/20 06:48 PT 13.1 SEC (10.8-13.0) H 10/01/20 15:41 INR 1.1 (0.9-1.1) 10/01/20 15:41 D-Dimer 764 NG/ML 10/03/20 06:48 Sodium 134 mmol/L (135-145) L 10/03/20 06:48 Potassium 4.7 mmol/l (3.3-5.1) 10/03/20 06:48 Chloride 100 mmol/L (96-108) 10/03/20 06:48 Carbon Dioxide 23 mmol/L (22-29) 10/03/20 06:48 Anion Gap 16 (12-20) 10/03/20 06:48 BUN 43 mg/dL (9-16) H 10/03/20 06:48 Creatinine 2.22 mg/dL (0.5-1.4) H 10/03/20 06:48 Estim Creat Clear Calc 28.1 10/03/20 06:48 Estimated GFR 22 10/03/20 06:48 POC Glucose 350 mg/dL (60-115) H* 10/03/20 07:32 Random Glucose 374 mg/dL (60-115) H* 10/02/20 06:42 Fasting Glucose 396 mg/dL (60-99) H* 10/03/20 06:48 Calcium 8.7 mg/dL (8.4-10.2) 10/03/20 06:48 Magnesium Cancelled 10/01/20 15:41 Ferritin 927 ng/mL (10-250) H 10/01/20 17:59 Total Bilirubin Cancelled 10/01/20 15:41 Direct Bilirubin Cancelled 10/01/20 15:41 AST Cancelled 10/01/20 15:41 ALT Cancelled 10/01/20 15:41 Alkaline Phosphatase Cancelled 10/01/20 15:41 Lactate Dehydrogenase 325 U/L (122-220) H 10/01/20 17:59 Troponin I High Sens 23.6 ng/L (<3.5-17.0) H 10/01/20 17:59 C-Reactive Protein 13.36 mg/dL (< or = 0.50) H 10/01/20 17:59 B-Natriuretic Peptide 61 pg/mL (<100) 10/01/20 15:41 Total Protein Cancelled 10/01/20 15:41 Albumin Cancelled 10/01/20 15:41 Procalcitonin 0.70 ng/mL 10/01/20 17:59 Urine Color STRAW 10/01/20 19:22 Urine Appearance HAZY 10/01/20 19:22 Urine pH 6.0 (5.0-8.0) 10/01/20 19:22 Ur Specific [place] 1.010 (1.005-1.025) 10/01/20 19:22 Urine Protein 2+ MG/DL (NEG-TRACE) H 10/01/20 19:22 Urine Glucose (UA) 250 MG/DL (NEG) H 10/01/20 19:22 Urine Ketones NEG MG/DL (NEG) 10/01/20 19:22 Urine Blood 1+ (NEG) H 10/01/20 19:22 Urine Nitrite NEG (NEG) 10/01/20 19:22 Ur Leukocyte Esterase 1+ (NEG) H 10/01/20 19:22 Urine RBC 1-4 /HPF (0) 10/01/20 19:22 Urine WBC 5-9 /HPF (0-4) H 10/01/20 19:22 Ur Squamous Epith Cells 1+ /LPF 10/01/20 19:22 Ur Renal Epithelial Cell TRACE /LPF 10/01/20 19:22 Urine Bacteria 3+ /LPF 10/01/20 19:22 Coronavirus (PCR) POSITIVE (Negative) A 10/01/20 19:23 Influenza Type A (PCR) NEGATIVE (Negative) 10/01/20 19:23 Influenza Type B (PCR) NEGATIVE (Negative) 10/01/20 19:23 RSV RNA Qual (PCR) NEGATIVE (Negative) 10/01/20 19:23 Discharge Plan Discharge Patient Disposition: Home, Self-Care Referrals: Name,MD Royal [Primary Care Provider] - Discharge Medications: Continued aspirin 81 mg Tablet,Delayed Release (Dr/Ec) 81 mg PO DAILY RF: 0 (DME) pen needle, diabetic 32 gauge x 5/32 needle See Rx Instructions ea .ROUTE .MEDSUPPLY Qty: 50 RF: 0 metoprolol tartrate 25 mg tablet 25 mg PO BID RF: 0 rosuvastatin 10 mg tablet 10 mg PO BEDTIME RF: 0 losartan 100 mg tablet 100 mg PO DAILY RF: 0 gabapentin 100 mg capsule 100 mg PO BEDTIME RF: 0 omeprazole 20 mg capsule,delayed release(DR/EC) 20 mg PO DAILY RF: 0 levothyroxine 25 mcg tablet 25 mcg PO DAILY RF: 0 amlodipine 2.5 mg tablet 2.5 mg PO DAILY RF: 0 dulaglutide 0.75 mg/0.5 mL pen injector 0.75 mg subcut WE RF: 0 furosemide 40 mg tablet 40 mg PO BID RF: 0 insulin glargine 100 unit/mL (3 mL) insulin pen 15 unit subcut DAILY RF: 0 Discharge Orders: Discharge Order (Routine); Ordered 10/03/20 Ordered By: Nehemias Ugarte Activity on Discharge: As tolerated Visit Report Forms: Patient Portal Discharge page Care Plan Goals: recovery Health Concerns: covid Plan of Treatment: monitor, isolate until 24hrs fever free and atleast 10 days from start of symptoms, if worsening sob/fevers should return to ED
[2020-10-03 11:53] LABS: Glucose, Whole Blood 348 mg/dL (60-115)
== END 2020-10-03 13:15 | disposition home or self-care (01) | DRG 177 ==
LOC: HO.ED 14:19 → HO.IMC 21:03
PROVIDERS: Nurse Practitioner Family; Physician Assistant; Physician Assistant Medical; Admitting Provider Internal Medicine; Emergency Provider Emergency Medicine; PCP Internal Medicine Geriatric Medicine; Visit Provider Internal Medicine
DX: U07.1 COVID-19 (principal); J12.89 Other viral pneumonia; J96.01 Acute respiratory failure with hypoxia; N17.9 Acute kidney failure, unspecified; N18.4 Chronic kidney disease, stage 4 (severe); I12.9 Hypertensive chronic kidney disease with stage 1 through stage 4 chronic kidney disease, or unspecified chronic kidney disease; E11.22 Type 2 diabetes mellitus with diabetic chronic kidney disease; E78.5 Hyperlipidemia, unspecified; E03.9 Hypothyroidism, unspecified; Z85.3 Personal history of malignant neoplasm of breast; Z79.4 Long term (current) use of insulin; Z79.890 Hormone replacement therapy; Z79.899 Other long term (current) drug therapy
CPT/HCPCS: 0241U; 36415; 70450; 71045; 80048; 80076; 81001; 82728; 82947; 83615; 83735; 83880; 84145; 84484; 85007; 85025; 85027; 85060; 85379; 85610; 86140; 87086; 93005; 96360; 96361; 99285; J1100

== ENCOUNTER 2020-10-04 14:04 | Inpatient (IN) | payer MEDICARE, MEDICAID, SELFPAY ==
[2020-10-04] VITALS (10 sets, daily range): BP systolic 99–177; BP diastolic 63–92; PULSE 71–107; RESP 16–22; TEMP 36.8–37.2; O2SAT 85–99; BMI 41.0
--- NOTE | 2020-10-04 | ECG_ITS ---
Test Reason : SHORTNESS OF BREATH Blood Pressure : / mmHG Vent. Rate : 077 BPM Atrial Rate : 077 BPM P-R Int : 162 ms QRS Dur : 086 ms QT Int : 398 ms P-R-T Axes : -04 -05 033 degrees QTc Int : 450 ms Normal sinus rhythm Normal ECG When compared with ECG of 01-OCT-2020 20:31, No significant change was found Referred By: Generic ED Physician Electronically Signed By:TAMMI DANIELSON MD
--- NOTE | 2020-10-04 17:15 | ED.SOB ---
HPI - SOB/Dyspnea General Chief Complaint: Dyspnea Stated Complaint: difficulty breathing Time Seen by Provider: 10/04/20 17:12 Source: patient Mode of arrival: ambulatory Limitations: no limitations History of Present Illness HPI Narrative: 75 y/o female with history of HTN, CKD IV, DM2 on insulin, HLD and recent admission here 10/01-10/03 for acute hypoxic respiratory failure 2/2 COVID-19 pneumonia s/p treatment with dexamethasone who presents back to the ED 1 day after discharge with continued SOB and dizziness. She reports dry cough and muscle aches. She denies chest pain. Related Data Home Medications Medication Instructions Recorded Confirmed amlodipine 2.5 mg tablet 2.5 mg PO DAILY 09/22/20 10/01/20 dulaglutide 0.75 mg/0.5 mL 0.75 mg SUBCUT WE 09/22/20 10/01/20 subcutaneous pen injector furosemide 40 mg tablet 40 mg PO BID 09/22/20 10/01/20 gabapentin 100 mg capsule 100 mg PO BEDTIME 09/22/20 10/01/20 insulin glargine 100 unit/mL (3 15 unit SUBCUT DAILY 09/22/20 10/01/20 mL) subcutaneous pen levothyroxine 25 mcg tablet 25 mcg PO DAILY 09/22/20 10/01/20 losartan 100 mg tablet 100 mg PO DAILY 09/22/20 10/01/20 metoprolol tartrate 25 mg tablet 25 mg PO BID 09/22/20 10/01/20 omeprazole 20 mg capsule,delayed 20 mg PO DAILY 09/22/20 10/01/20 release pen needle, diabetic 32 gauge x #50 ea 09/22/20 09/22/20 rosuvastatin 10 mg tablet 10 mg PO BEDTIME 09/22/20 10/01/20 aspirin 81 mg PO DAILY 10/01/20 10/01/20 Allergies Allergy/AdvReac Type Severity Reaction Status Date / Time No Known Allergies Allergy Verified 10/04/20 16:58 [No Known Allergies*] Review of Systems Review of Systems: Constitutional: No Fever, + Chills ENT/Mouth: No sore throat, No Rhinorrhea, No Swallowing Difficulty Eyes: No Eye Pain, No Swelling, No Redness Cardiovascular: No Chest Pain, + SOB, No Orthopnea, No Edema Respiratory: No Cough, No Sputum, No Wheezing, No dyspnea Gastrointestinal: No Nausea, No Vomiting, No Diarrhea, No abdominal Pain Genitourinary: No Dysuria, No Urinary Frequency, No Hematuria Musculoskeletal: No joint pain, + Myalgias Skin: No Skin Lesions, No rash Neuro: + Weakness, No Numbness, + Dizziness, + Headache Psych: No Anxiety/Panic, No Depression Heme/Lymph: No Bruising, No Lymphadenopathy Endocrine: No Polyuria, No Polydipsia [facility] Past Medical History Medical History (Updated 10/04/20 @ 21:37 by TATO Luu) Arthritis History of hysteroscopy History of right breast cancer HTN (hypertension) Hyperlipemia Hypothyroidism Type 2 diabetes mellitus Surgical History H/O eye surgery H/O right mastectomy History of tubal ligation Social History Social History (Updated 10/01/20 @ 20:06 by TATO Guillen) Household Members: Family Housing: Apartment Alcohol intake: never Smoking Status: Never smoker Advance Directives: No Advance Directives Information Provided: Yes Sexual orientation: Straight/Heterosexual Gender identity: female Physical Exam Vital Signs: Vital Signs: Last Vital Signs Temp 99.0 F 10/04/20 21:23 Pulse 80 10/04/20 21:23 Resp 22 H 10/04/20 21:32 BP 143/75 H 10/04/20 21:23 Pulse Ox 85 L 10/04/20 21:32 Body Mass Index 41.0 Appearance: Alert. Oriented X3. No acute distress. Eyes: Pupils equal, round and reactive to light. ENT: Pharynx normal. Neck: Normal inspection. Neck supple. CVS: rapid rate, regular rhythm. Pulses normal. Respiratory: No respiratory distress. Breath sounds normal. Abdomen: Soft and nontender. +BS x4 Skin: Skin warm and dry. Normal skin color. Normal skin turgor. No rashes. Extremities: No lower extremity edema. Diffuse tenderness to bilateral calves without edema, erythema or skin changes. No pitting edema. Tenderness of quadricep muscles as well. Neuro: Oriented X 3. No motor deficit. No sensory deficit. Course Course Course Narrative: 75 y/o recently hospitalized for COVID pnuemonia presents 1 day after discharge with continued symptoms of SOB and dizziness. She had a CT of her head on 10/01 for dizziness showing mild generalized atrophy and nonspecific periventricular white matter disease. Prior to d/c she was afebrile and able to ambulate without supplemental O2. On arrival she is afebrile, hypertensive and saturating 95% on room air. Repeat labs, CXR, orthostatic VS and EKG ordered as well as inflammatory markers for COVID-19. Concern for possible secondary bacterial pneumonia, worsening COVID pneumonia, ?PE. Unable to do CTA due to kidney disease. Considering V/Q scan after lab work and CXR are performed. Reevaluation(s) Reevaluation #1: DDIMER trending up with improving CXR, increasing suspicion for PE. V/Q ordered. Elevated lactic acid and glucose to 600. Anion gap 21 - acetone added to rule out DKA. IVF ordered. Time: 21:35 Reevaluation #2: VQ scan is negative for PE. With minimal exertion patient has increased WOB and tachypnia. She was ambulated in the ER and she became hypoxic to 85% and was dyspneic. Will call hospitalist for readmission. Reevaluation #3: Spoke with Dr. Andersen who accepts. Patient agreeable to admission. MDM - SOB/Dyspnea Lab Data Result diagrams: 10/04/20 18:39 10/04/20 18:39 Labs: Lab Results 10/04/20 10/04/20 10/04/20 Range/Units 18:39 18:39 18:39 WBC 10.4 (4.8-10.8) X10*3/uL RBC 3.64 L (4.20-5.50) X10*6/uL Hgb 11.6 L (12.0-16.0) g/dl Hct 34.8 L (37-47) % MCV 95.6 (80-98) fL MCH 31.9 (27.0-33.0) pg MCHC 33.3 (31.0-35.0) g/dl RDW 12.3 (11.0-16.0) % Plt Count 308 D (160-400) X10*3/uL MPV 10.1 (9.4-12.3) fL Immature Gran % (Auto) 0.7 H (0.0-0.4) % Neut % (Auto) 79.9 H (45-73) % Lymph % (Auto) 13.1 L (20-40) % [place] % (Auto) 6.3 (2-11) % Eos % (Auto) 0.0 (0-4) % Baso % (Auto) 0.0 (0-2) % Lymph # (Auto) 1.4 (1.2-4.9) X10*3/uL [place] # (Auto) 0.7 (0.1-1.2) X10*3/uL Eos # (Auto) 0.0 (0.0-0.4) X10*3/uL Baso # (Auto) 0.0 (0.0-0.2) X10*3/uL Abs Immat Gran (auto) 0.07 H (0.00-0.03) X10*3/uL Absolute Neuts (auto) 8.3 (2.0-8.3) X10*3/uL Absolute Nucleated RBC 0.000 (0.0-0.012) X10*3/uL Nucleated RBC % (auto) 0.0 (0.0-0.2) /100WBC Smear Tech's Comments VERIFIED D-Dimer NG/ML Sodium 131 L (135-145) mmol/L Potassium 4.6 (3.3-5.1) mmol/l Chloride 93 L (96-108) mmol/L Carbon Dioxide 22 (22-29) mmol/L Anion Gap 21 H (12-20) BUN 49 H (9-16) mg/dL Creatinine 2.66 H (0.5-1.4) mg/dL Estim Creat Clear Calc 23.9 Estimated GFR 18 Random Glucose 675 H* (60-115) mg/dL Lactic Acid (0.5-2.0) mmol/L Calcium 9.1 (8.4-10.2) mg/dL Magnesium 1.6 (1.6-2.6) mg/dL Total Bilirubin 0.5 (0.0-1.0) mg/dL Direct Bilirubin 0.2 (0.0-0.5) mg/dL AST 35 H (5-31) U/L ALT 23 (0-31) U/L Alkaline Phosphatase 73 (39-117) U/L Lactate Dehydrogenase (122-220) U/L Troponin I High Sens 12.0 (<3.5-17.0) ng/L C-Reactive Protein (< or = 0.50) mg/dL Total Protein 7.9 (6.5-8.0) g/dL Albumin 3.9 (3.5-5.0) g/dL Procalcitonin ng/mL Urine Color Urine Appearance Urine pH (5.0-8.0) Ur Specific [place] (1.005-1.025) Urine Protein (NEG-TRACE) MG/DL Urine Glucose (UA) (NEG) MG/DL Urine Ketones (NEG) MG/DL Urine Blood (NEG) Urine Nitrite (NEG) Ur Leukocyte Esterase (NEG) Urine RBC (0) /HPF Urine WBC (0-4) /HPF Ur Squamous Epith Cells /LPF Urine Bacteria /LPF Acetone, Qual (Negative) 10/04/20 10/04/20 10/04/20 Range/Units 18:39 18:39 18:39 WBC (4.8-10.8) X10*3/uL RBC (4.20-5.50) X10*6/uL Hgb (12.0-16.0) g/dl Hct (37-47) % MCV (80-98) fL MCH (27.0-33.0) pg MCHC (31.0-35.0) g/dl RDW (11.0-16.0) % Plt Count (160-400) X10*3/uL MPV (9.4-12.3) fL Immature Gran % (Auto) (0.0-0.4) % Neut % (Auto) (45-73) % Lymph % (Auto) (20-40) % [place] % (Auto) (2-11) % Eos % (Auto) (0-4) % Baso % (Auto) (0-2) % Lymph # (Auto) (1.2-4.9) X10*3/uL [place] # (Auto) (0.1-1.2) X10*3/uL Eos # (Auto) (0.0-0.4) X10*3/uL Baso # (Auto) (0.0-0.2) X10*3/uL Abs Immat Gran (auto) (0.00-0.03) X10*3/uL Absolute Neuts (auto) (2.0-8.3) X10*3/uL Absolute Nucleated RBC (0.0-0.012) X10*3/uL Nucleated RBC % (auto) (0.0-0.2) /100WBC Smear Tech's Comments D-Dimer 873 NG/ML Sodium (135-145) mmol/L Potassium (3.3-5.1) mmol/l Chloride (96-108) mmol/L Carbon Dioxide (22-29) mmol/L Anion Gap (12-20) BUN (9-16) mg/dL Creatinine (0.5-1.4) mg/dL Estim Creat Clear Calc Estimated GFR Random Glucose (60-115) mg/dL Lactic Acid 3.5 H* (0.5-2.0) mmol/L Calcium (8.4-10.2) mg/dL Magnesium (1.6-2.6) mg/dL Total Bilirubin (0.0-1.0) mg/dL Direct Bilirubin (0.0-0.5) mg/dL AST (5-31) U/L ALT (0-31) U/L Alkaline Phosphatase (39-117) U/L Lactate Dehydrogenase 344 H (122-220) U/L Troponin I High Sens (<3.5-17.0) ng/L C-Reactive Protein 4.47 H (< or = 0.50) mg/dL Total Protein (6.5-8.0) g/dL Albumin (3.5-5.0) g/dL Procalcitonin ng/mL Urine Color Urine Appearance Urine pH (5.0-8.0) Ur Specific [place] (1.005-1.025) Urine Protein (NEG-TRACE) MG/DL Urine Glucose (UA) (NEG) MG/DL Urine Ketones (NEG) MG/DL Urine Blood (NEG) Urine Nitrite (NEG) Ur Leukocyte Esterase (NEG) Urine RBC (0) /HPF Urine WBC (0-4) /HPF Ur Squamous Epith Cells /LPF Urine Bacteria /LPF Acetone, Qual Negative (Negative) 10/04/20 10/04/20 Range/Units 18:39 18:39 WBC (4.8-10.8) X10*3/uL RBC (4.20-5.50) X10*6/uL Hgb (12.0-16.0) g/dl Hct (37-47) % MCV (80-98) fL MCH (27.0-33.0) pg MCHC (31.0-35.0) g/dl RDW (11.0-16.0) % Plt Count (160-400) X10*3/uL MPV (9.4-12.3) fL Immature Gran % (Auto) (0.0-0.4) % Neut % (Auto) (45-73) % Lymph % (Auto) (20-40) % [place] % (Auto) (2-11) % Eos % (Auto) (0-4) % Baso % (Auto) (0-2) % Lymph # (Auto) (1.2-4.9) X10*3/uL [place] # (Auto) (0.1-1.2) X10*3/uL Eos # (Auto) (0.0-0.4) X10*3/uL Baso # (Auto) (0.0-0.2) X10*3/uL Abs Immat Gran (auto) (0.00-0.03) X10*3/uL Absolute Neuts (auto) (2.0-8.3) X10*3/uL Absolute Nucleated RBC (0.0-0.012) X10*3/uL Nucleated RBC % (auto) (0.0-0.2) /100WBC Smear Tech's Comments D-Dimer NG/ML Sodium (135-145) mmol/L Potassium (3.3-5.1) mmol/l Chloride (96-108) mmol/L Carbon Dioxide (22-29) mmol/L Anion Gap (12-20) BUN (9-16) mg/dL Creatinine (0.5-1.4) mg/dL Estim Creat Clear Calc Estimated GFR Random Glucose (60-115) mg/dL Lactic Acid (0.5-2.0) mmol/L Calcium (8.4-10.2) mg/dL Magnesium (1.6-2.6) mg/dL Total Bilirubin (0.0-1.0) mg/dL Direct Bilirubin (0.0-0.5) mg/dL AST (5-31) U/L ALT (0-31) U/L Alkaline Phosphatase (39-117) U/L Lactate Dehydrogenase (122-220) U/L Troponin I High Sens (<3.5-17.0) ng/L C-Reactive Protein (< or = 0.50) mg/dL Total Protein (6.5-8.0) g/dL Albumin (3.5-5.0) g/dL Procalcitonin 0.32 ng/mL Urine Color YELLOW Urine Appearance CLEAR Urine pH 5.5 (5.0-8.0) Ur Specific [place] 1.020 (1.005-1.025) Urine Protein 2+ H (NEG-TRACE) MG/DL Urine Glucose (UA) >=1000 H (NEG) MG/DL Urine Ketones NEG (NEG) MG/DL Urine Blood 2+ H (NEG) Urine Nitrite NEG (NEG) Ur Leukocyte Esterase NEG (NEG) Urine RBC 15-29 H (0) /HPF Urine WBC 0-2 (0-4) /HPF Ur Squamous Epith Cells 3+ /LPF Urine Bacteria NONE /LPF Acetone, Qual (Negative) Discharge Plan Discharge Clinical Impression: COVID-19 Patient Disposition: Admitted As Inpatient
--- NOTE | 2020-10-04 17:40 | XR_ITS ---
EXAMINATION: XR CHEST CLINICAL INFORMATION: Shortness of breath COMPARISON: Chest x-ray 10/01/2020 TECHNIQUE: Frontal view of the chest was obtained. FINDINGS: Cardiac silhouette is normal in size. Lungs are adequately aerated. Persistent but improved bilateral patchy airspace disease, still most prominent within the left lower lobe. No pleural effusion or pneumothorax. XR/XR chest 1V IMPRESSION: Persistent but improved bilateral patchy airspace disease.
--- NOTE | 2020-10-04 17:46 | US_ITS ---
EXAMINATION: BILATERAL LOWER EXTREMITY DEEP VENOUS ULTRASOUND CLINICAL INFORMATION: Bilateral lower extremity pain and swelling. COMPARISON: No similar prior examinations are available for comparison. TECHNIQUE: Duplex Doppler imaging with compression maneuvers were performed of the bilateral lower extremity deep venous systems. FINDINGS: The bilateral visualized common femoral, femoral and popliteal veins demonstrate normal compressibility and color flow without evidence of venous thrombosis. Visualized portions of the bilateral calf veins demonstrate normal color fill-in suggesting patency. There is no evidence of a Tamayo's cyst. US/US venous duplex LE BI IMPRESSION: No evidence of deep venous thrombosis involving the bilateral lower extremities.
--- NOTE | 2020-10-04 18:12 | PC.NURSE ---
pt reporting increasing sob and is covid positive. ls very dim. no resp distress noted., up to br withg limp but no sob.
--- NOTE | 2020-10-04 18:48 | NM_ITS ---
EXAMINATION: NM LUNG IMAGE PERFUSION CLINICAL INFORMATION: Shortness of breath. Tachycardia. Covid 19 COMPARISON: Chest x-ray 10/04/2020 TECHNIQUE: Perfusion scan only. 4 mCi technetium 99m MAA injected intravenously. Images obtained in multiple projections. FINDINGS: There is homogeneous perfusion of the lungs bilateral. No perfusion defects. No evidence of pulmonary embolism. NM/NM pul perfusion IMPRESSION: Normal lung perfusion study. No evidence of pulmonary embolism.
[2020-10-04 18:50] LABS: Hematocrit 34.8 % (37-47); Hemoglobin 11.6 g/dl (12.0-16.0); Imm Gran Abs Auto 0.07 X10*3/uL (0.00-0.03); Imm Gran Pct Auto 0.7 % (0.0-0.4); Lymphocytes Absolute Auto 1.4 X10*3/uL (1.2-4.9); Lymphocytes Percent Auto 13.1 % (20-40); MANUAL DIFF FLAG SCAN; Mean Corpuscular HGB Conc 33.3 g/dl (31.0-35.0); Mean Corpuscular Hemoglobin 31.9 pg (27.0-33.0); Mean Corpuscular Volume 95.6 fL (80-98); Mean Platelet Volume 10.1 fL (9.4-12.3); Monocytes Absolute Auto 0.7 X10*3/uL (0.1-1.2); Monocytes Percent Auto 6.3 % (2-11); Neutrophils Absolute Auto 8.3 X10*3/uL (2.0-8.3); Neutrophils Percent Auto 79.9 % (45-73); Platelet Count 308 X10*3/uL (160-400); Red Blood Count 3.64 X10*6/uL (4.20-5.50); Red Cell Distribution Width 12.3 % (11.0-16.0); SCAN SMEAR FLAG 1; White Blood Count 10.4 X10*3/uL (4.8-10.8)
[2020-10-04 18:53] LABS: Glucose Urine UA >=1000 MG/DL (NEG); Leukocyte Esterase Urine NEG (NEG); Nitrite Urine NEG (NEG); PH 5.5 (5.0-8.0); Urine Blood 2+ (NEG); Urine Ketones NEG (NEG); Urine Protein 2+ MG/DL (NEG-TRACE)
[2020-10-04 18:58] LABS: Appearance Urine CLEAR; Color Urine YELLOW
[2020-10-04 19:13] LABS: C Reactive Protein 4.47 mg/dL (< or = 0.50); Lactate Dehydrogenase 344 U/L (122-220)
[2020-10-04 19:14] LABS: SLIDE REVIEW VERIFIED
[2020-10-04 19:15] LABS: Squamous Epithelial Cell Urine 3+ /LPF; WBC Urine 0-2 /HPF (0-4)
[2020-10-04 19:19] LABS: Alanine Aminotransferase 23 U/L (0-31); Albumin Level 3.9 g/dL (3.5-5.0); Alkaline Phosphatase 73 U/L (39-117); Anion Gap 21 (12-20); Aspartate Amino Transferase 35 U/L (5-31); Bilirubin Direct 0.2 mg/dL (0.0-0.5); Bilirubin Total 0.5 mg/dL (0.0-1.0); Blood Urea Nitrogen 49 mg/dL (9-16); Calcium 9.1 mg/dL (8.4-10.2); Carbon Dioxide 22 mmol/L (22-29); Chloride 93 mmol/L (96-108); Creatinine Clr Calc Pharmacy 23.9; Estimated Glomerular Filt Rate 18; Glucose Random 675 mg/dL (60-115); Magnesium 1.6 mg/dL (1.6-2.6); Potassium 4.6 mmol/l (3.3-5.1); Sodium 131 mmol/L (135-145); Total Protein 7.9 g/dL (6.5-8.0)
[2020-10-04 19:20] LABS: Lactic Acid 3.5 mmol/L (0.5-2.0)
[2020-10-04 19:21] LABS: D Dimer 873 NG/ML
[2020-10-04 19:43] LABS: Acetone, serum QL Negative (Negative)
--- NOTE | 2020-10-04 19:44 | PC.NURSE ---
IV in serted. Pt's satgs 98% on 2 litgers nc and RR 17 while at rest. Plan to transport to nuclear medicine.
[2020-10-04] MEDS: 0.9 % Sodium Chloride 1,000 ML 999 ML IVCONT ×2 (19:45→22:41)
[2020-10-04 20:14] LABS: Procalcitonin 0.32 ng/mL
[2020-10-04 20:47] LABS: Reflex Lactate? Lactic Acid Added
[2020-10-04] MEDS: Insulin Lispro 100 UNIT/ML 3 ML VIAL 14 UNIT SUBCUT (20:51)
[2020-10-04 22:57] LABS: Glucose, Whole Blood 517 mg/dL (60-115)
--- NOTE | 2020-10-04 23:15 | P.HPHOSP_ITS ---
History of Present Illness Date of Service: 10/04/20 Chief Complaint: SOB 75 y/o female with an extensive PMHX who presented from home c/o worsening SOB and fatigue. Patient was recently discharged from our facility, treated for covid pneumonia with decadron with successful recovery. Today presents from home reporting that her symptoms got worse specially with ambulation and felt severely fatigue for what decided to come back to our hospital. Denies any episode of fever at home. Denies any chest pain, nausea, vomiting, diarrhea or constipation. On presentation to the ED was noted to be tachycardic, tachypneic and hypoxic ~85 on room air which improved on nasal cannula. CXR shows persistent but improved bilateral patchy opacities. CTA negative for PE and Doppler LE negative for DVT. No further treatment was given per ED and decision for admission was given. Patient was seen and evaluated at the bedside, laying down in bed in no acute distress. ROS as above otherwise negative. Physical exam unremarkable. One dose of Solumedrol ordered stat and respiratory panel. PMHx: Arthritis History of hysteroscopy History of right breast cancer HTN (hypertension) Hyperlipemia Hypothyroidism Osteoporosis Type 2 diabetes mellitus PSx: H/O eye surgery H/O right mastectomy History of tubal ligation Toxic habits: No hx of alcohol abuse, smoking or IVDA Review of Systems Constitutional: Constitutional: Reports fatigue Cardiovascular: Cardiovascular: Reports dyspnea Respiratory: Respiratory: Reports dyspnea Endocrine: Endocrine: Reports fatigue [facility] Medical History (Updated 10/04/20 @ 23:[address] MD) Arthritis History of hysteroscopy History of right breast cancer HTN (hypertension) Hyperlipemia Hypothyroidism Type 2 diabetes mellitus Functional capacity: independent ambulation Surgical History H/O eye surgery H/O right mastectomy History of tubal ligation Social History Household Members: Family Housing: Apartment Alcohol intake: never Smoking Status: Never smoker Advance Directives: No Advance Directives Information Provided: Yes Sexual orientation: Straight/Heterosexual Gender identity: female Meds Allergies Allergy/AdvReac Type Severity Reaction Status Date / Time No Known Allergies Allergy Verified 10/04/20 16:58 [No Known Allergies*] Home Medications Medication Instructions Recorded Confirmed Type amlodipine 2.5 mg tablet 2.5 mg PO DAILY 09/22/20 10/04/20 History dulaglutide 0.75 mg/0.5 mL 0.75 mg SUBCUT WE 09/22/20 10/04/20 History subcutaneous pen injector furosemide 40 mg tablet 40 mg PO BID 09/22/20 10/04/20 History gabapentin 100 mg capsule 100 mg PO BEDTIME 09/22/20 10/04/20 History insulin glargine 100 unit/mL (3 15 unit SUBCUT DAILY 09/22/20 10/04/20 History mL) subcutaneous pen levothyroxine 25 mcg tablet 25 mcg PO DAILY 09/22/20 10/04/20 History losartan 100 mg tablet 100 mg PO DAILY 09/22/20 10/04/20 History metoprolol tartrate 25 mg tablet 25 mg PO BID 09/22/20 10/04/20 History omeprazole 20 mg capsule,delayed 20 mg PO DAILY 09/22/20 10/04/20 History release pen needle, diabetic 32 gauge x #50 ea 09/22/20 10/04/20 History rosuvastatin 10 mg tablet 10 mg PO BEDTIME 09/22/20 10/04/20 History aspirin 81 mg PO DAILY 10/01/20 10/04/20 History Physical Exam Vital Signs and Narrative: Vital Signs: Last Vital Signs Temp 99.0 F 10/04/20 22:38 Pulse 80 10/04/20 22:38 Resp 18 10/04/20 22:38 BP 134/69 10/04/20 22:38 Pulse Ox 97 10/04/20 22:38 Body Mass Index 41.0 Const: General: cooperative, comfortable and no acute distress Orientation/consciousness: oriented to person, oriented to place and oriented to time HENMT: Head: Yes normal to inspection Eyes: General: appearance normal, both eyes and all related structures Neck: Yes normal visual inspection Chest: Chest palpation & inspection: normal inspection of the chest Resp: Effort & Inspection: normal respiratory effort Cardio: Jugular venous distension: no JVD Rate: regular rate Rhythm: regular rhythm Heart sounds: S1 normal heart sound present and S2 normal heart sound present GI: Inspection: Yes normal to inspection Skin: General skin exam: no rashes or lesions noted Neuro: General: oriented to person, oriented to place and oriented to time Motor exam (neuro): 5/5 motor strength present throughout Results Labs CBC and Chem 7: 10/04/20 18:39 10/04/20 18:39 Labs: Laboratory Results - last 24 hr 10/04/20 10/04/20 10/04/20 18:39 18:39 18:39 MCV 95.6 MCH 31.9 MCHC 33.3 RDW 12.3 Plt Count 308 D MPV 10.1 Immature Gran % (Auto) 0.7 H Neut % (Auto) 79.9 H Lymph % (Auto) 13.1 L [place] % (Auto) 6.3 Eos % (Auto) 0.0 Baso % (Auto) 0.0 Lymph # (Auto) 1.4 [place] # (Auto) 0.7 Eos # (Auto) 0.0 Baso # (Auto) 0.0 Abs Immat Gran (auto) 0.07 H Absolute Neuts (auto) 8.3 Absolute Nucleated RBC 0.000 Nucleated RBC % (auto) 0.0 Smear Tech's Comments VERIFIED D-Dimer Anion Gap 21 H Estim Creat Clear Calc 23.9 Estimated GFR 18 POC Glucose Random Glucose 675 H* Lactic Acid Calcium 9.1 Magnesium 1.6 Total Bilirubin 0.5 Direct Bilirubin 0.2 AST 35 H ALT 23 Alkaline Phosphatase 73 Lactate Dehydrogenase Troponin I High Sens 12.0 C-Reactive Protein Total Protein 7.9 Albumin 3.9 Procalcitonin Urine Color Urine Appearance Urine pH Ur Specific [place] Urine Protein Urine Glucose (UA) Urine Ketones Urine Blood Urine Nitrite Ur Leukocyte Esterase Urine RBC Urine WBC Ur Squamous Epith Cells Urine Bacteria Acetone, Qual 10/04/20 10/04/20 10/04/20 18:39 18:39 18:39 MCV MCH MCHC RDW Plt Count MPV Immature Gran % (Auto) Neut % (Auto) Lymph % (Auto) [place] % (Auto) Eos % (Auto) Baso % (Auto) Lymph # (Auto) [place] # (Auto) Eos # (Auto) Baso # (Auto) Abs Immat Gran (auto) Absolute Neuts (auto) Absolute Nucleated RBC Nucleated RBC % (auto) Smear Tech's Comments D-Dimer 873 Anion Gap Estim Creat Clear Calc Estimated GFR POC Glucose Random Glucose Lactic Acid 3.5 H* Calcium Magnesium Total Bilirubin Direct Bilirubin AST ALT Alkaline Phosphatase Lactate Dehydrogenase 344 H Troponin I High Sens C-Reactive Protein 4.47 H Total Protein Albumin Procalcitonin Urine Color Urine Appearance Urine pH Ur Specific [place] Urine Protein Urine Glucose (UA) Urine Ketones Urine Blood Urine Nitrite Ur Leukocyte Esterase Urine RBC Urine WBC Ur Squamous Epith Cells Urine Bacteria Acetone, Qual Negative 10/04/20 10/04/20 10/04/20 18:39 18:39 21:34 MCV MCH MCHC RDW Plt Count MPV Immature Gran % (Auto) Neut % (Auto) Lymph % (Auto) [place] % (Auto) Eos % (Auto) Baso % (Auto) Lymph # (Auto) [place] # (Auto) Eos # (Auto) Baso # (Auto) Abs Immat Gran (auto) Absolute Neuts (auto) Absolute Nucleated RBC Nucleated RBC % (auto) Smear Tech's Comments D-Dimer Anion Gap Estim Creat Clear Calc Estimated GFR POC Glucose 517 H* Random Glucose Lactic Acid Calcium Magnesium Total Bilirubin Direct Bilirubin AST ALT Alkaline Phosphatase Lactate Dehydrogenase Troponin I High Sens C-Reactive Protein Total Protein Albumin Procalcitonin 0.32 Urine Color YELLOW Urine Appearance CLEAR Urine pH 5.5 Ur Specific [place] 1.020 Urine Protein 2+ H Urine Glucose (UA) >=1000 H Urine Ketones NEG Urine Blood 2+ H Urine Nitrite NEG Ur Leukocyte Esterase NEG Urine RBC 15-29 H Urine WBC 0-2 Ur Squamous Epith Cells 3+ Urine Bacteria NONE Acetone, Qual Imaging Radiologist's Impressions: Impressions Chest X-Ray 10/04/20 17:40 IMPRESSION: Persistent but improved bilateral patchy airspace disease. Venous Duplex 10/04/20 17:46 IMPRESSION: No evidence of deep venous thrombosis involving the bilateral lower extremities. Pulmonary Perfusion Imaging 10/04/20 18:48 IMPRESSION: Normal lung perfusion study. No evidence of pulmonary embolism. Assessment and Plan (1) Pneumonia due to COVID-19 virus: Status: Acute Isolation for now Continue with oxygen therapy and titrate off as tolerated Continue with solumedrol 40 mg daily and titrate off as tolerated No need for antbx at present as there is no evidence of any underlying bacterial infection follow up repeat respiratory panel follow up bcx obtained in the ED Infectious disease consult (2) Sepsis: Status: Acute Keep MAP >65 mmHg vitals much improved now. No need for antbx at present as there is no evidence of any underlying bacterial infection rest of the management as stated above (3) HTN (hypertension): Status: Acute continue with home BP meds continue with aspirin home dose Hold furosemide given hyponatremia (4) Hyperlipemia: Status: Acute continue with statin home dose (5) Type 2 diabetes mellitus: Status: Acute Insulin regimen as ordered (6) Hypothyroidism: Status: Inactive continue with levothyroxine home dose (7) Peripheral neuropathy: Status: Acute continue with gabapentin home dose (8) Hyponatremia: Status: Acute Na of 131 likely due to dehydration/diuretic Hold furosemide for now nephrology consult
[2020-10-04 23:22] LABS: ~Lactic Acid-LAB USE ONLY 2.9 mmol/L (0.5-2.0)
[2020-10-05] VITALS (15 sets, daily range): BP systolic 117–157; BP diastolic 66–89; PULSE 69–103; RESP 16–20; TEMP 35.8–37.7; O2SAT 95–99; BMI 41.0
[2020-10-05] MEDS: Insulin Lispro 100 UNIT/ML 3 ML VIAL 10 UNIT SUBCUT ×2 (00:10→22:27)
[2020-10-05 00:48] LABS: Adenovirus PCR Not Detected (Not Detect.); Bordetella parapertussis PCR Not Detected (Not Detect.); Bordetella pertussis PCR Not Detected (Not Detect.); Chlamydia pneumoniae PCR Not Detected (Not Detect.); Coronavirus 229E PCR Not Detected (Not Detect.); Coronavirus HKU1 PCR Not Detected (Not Detect.); Coronavirus NL63 PCR Not Detected (Not Detect.); Coronavirus OC43 PCR Not Detected (Not Detect.); Human metapneumovirus PCR Not Detected (Not Detect.); Influenza A PCR Not Detected (Not Detect.); Influenza B PCR Not Detected (Not Detect.); Mycoplasma pneumoniae PCR Not Detected (Not Detect.); Parainfluenza 1 PCR Not Detected (Not Detect.); Parainfluenza 2 PCR Not Detected (Not Detect.); Parainfluenza 3 PCR Not Detected (Not Detect.); Parainfluenza 4 PCR Not Detected (Not Detect.); RSV PCR Not Detected (Not Detect.); Rhino/Enterovirus PCR Not Detected (Not Detect.)
[2020-10-05 00:58] LABS: Reflex Lactate? 2 Y
[2020-10-05 01:30] LABS: COVID-19 Test Positive (Negative)
--- NOTE | 2020-10-05 01:43 | PC.NURSE ---
NURSE TO NURSE GIVEN TO FABRICIO DAVID.
[2020-10-05 02:15] LABS: ~Lactic Acid-LAB USE ONLY 1.8 mmol/L (0.5-2.0)
[2020-10-05 02:25] LABS: Glucose, Whole Blood 295 mg/dL (60-115)
[2020-10-05] MEDS: Heparin Sodium,Porcine 5,000 UNIT/ML VIAL 5000 UNIT SUBCUT ×3 (04:41→18:57)
[2020-10-05] MEDS: Levothyroxine Sodium 25 MCG TABLET PO (04:42)
[2020-10-05 05:05] LABS: Glucose, Whole Blood 231 mg/dL (60-115)
[2020-10-05 06:56] LABS: Hematocrit 30.9 % (37-47); Hemoglobin 10.2 g/dl (12.0-16.0); Imm Gran Pct Auto 1.4 % (0.0-0.4); Lymphocytes Absolute Auto 0.8 X10*3/uL (1.2-4.9); Lymphocytes Percent Auto 10.9 % (20-40); MANUAL DIFF FLAG SCAN; Mean Corpuscular Hemoglobin 30.7 pg (27.0-33.0); Mean Corpuscular Volume 93.1 fL (80-98); Mean Platelet Volume 10.2 fL (9.4-12.3); Monocytes Absolute Auto 0.2 X10*3/uL (0.1-1.2); Monocytes Percent Auto 2.9 % (2-11); Neutrophils Absolute Auto 6.2 X10*3/uL (2.0-8.3); Neutrophils Percent Auto 84.8 % (45-73); Platelet Count 282 X10*3/uL (160-400); Red Blood Count 3.32 X10*6/uL (4.20-5.50); Red Cell Distribution Width 12.1 % (11.0-16.0); SCAN SMEAR FLAG 1; White Blood Count 7.3 X10*3/uL (4.8-10.8)
[2020-10-05] MEDS: Insulin Lispro 100 UNIT/ML 3 ML VIAL SUBCUT ×5 (06:58→21:07)
[2020-10-05 07:17] LABS: Anion Gap 14 (12-20); Blood Urea Nitrogen 42 mg/dL (9-16); Calcium 8.3 mg/dL (8.4-10.2); Carbon Dioxide 23 mmol/L (22-29); Chloride 104 mmol/L (96-108); Estimated Glomerular Filt Rate 24; Glucose Random 258 mg/dL (60-115); Potassium 4.3 mmol/l (3.3-5.1); Sodium 137 mmol/L (135-145)
[2020-10-05 07:44] LABS: SLIDE REVIEW VERIFIED
[2020-10-05 07:53] LABS: Glucose, Whole Blood 268 mg/dL (60-115)
[2020-10-05] MEDS: Metoprolol Tartrate 25 MG TABLET PO ×2 (08:11→21:08)
[2020-10-05] MEDS: Aspirin Enteric Coated 81 MG TABLET.DR PO (08:12)
[2020-10-05] MEDS: Omeprazole 20 MG CAPSULE.DR PO (08:12)
[2020-10-05] MEDS: Losartan Potassium 50 MG TABLET 100 MG PO (08:12)
[2020-10-05] MEDS: Atorvastatin Calcium 40 MG TABLET PO (08:14)
[2020-10-05] MEDS: amLODIPine Besylate 2.5 MG TABLET PO (08:14)
[2020-10-05 09:23] LABS: SARS-CoV-2 PCR Detected (Not Detect.)
--- NOTE | 2020-10-05 09:55 | MHC.CM.PN ---
Addendum entered by Adina Sanchez 10/05/20 10:02: PATIENT AMBULATES WITH A WALKER. Original Note: IMM 10/05/20 Female 75 DX COVID+. She lives with Family. [employer] thru [employer]. No HCP on file. Education provided Pt declined. DP home resume [employer] services, Family will provide transportation.
[2020-10-05] MEDS: dexAMETHasone sod phosphate 4 MG/ML VIAL 6 MG IVPUSH (11:02)
[2020-10-05 11:18] LABS: Glucose, Whole Blood 310 mg/dL (60-115)
--- NOTE | 2020-10-05 11:46 | PM.CNNEP ---
History of Present Illness Reason for Consult Consult date: 10/05/20 Reason for consult: JOSEPHINE Chief Complaint Chief complaint: SOB History of Present Illness Narrative: 75 y/o hF COVID positve readm with incr SOB noted incr SCR. Breathing has imporved and SCr better today. No CP. Non-prod cough. C/O gen aches. Arthritis History of hysteroscopy History of right breast cancer HTN (hypertension) Hyperlipemia Hypothyroidism Osteoporosis Type 2 diabetes mellitus CKD 3 Review of Systems Review of Systems Constitutional: No Fever, + Chills ENT/Mouth: No sore throat, No Rhinorrhea, No Swallowing Difficulty Eyes: No Eye Pain, No Swelling, No Redness Cardiovascular: No Chest Pain, + SOB, No Orthopnea, No Edema Respiratory: No Cough, No Sputum, No Wheezing, No dyspnea Gastrointestinal: No Nausea, No Vomiting, No Diarrhea, No abdominal Pain Genitourinary: No Dysuria, No Urinary Frequency, No Hematuria Musculoskeletal: No joint pain, + Myalgias Skin: No Skin Lesions, No rash Neuro: + Weakness, No Numbness, + Dizziness, + Headache Psych: No Anxiety/Panic, No Depression Heme/Lymph: No Bruising, No Lymphadenopathy Endocrine: No Polyuria, No Polydipsia [facility] Past Medical History Medical History (Updated 10/04/20 @ 23:[address] MD) Arthritis History of hysteroscopy History of right breast cancer HTN (hypertension) Hyperlipemia Hypothyroidism Type 2 diabetes mellitus Functional capacity: independent ambulation Surgical History Surgical History H/O eye surgery H/O right mastectomy History of tubal ligation Social History Social History Household Members: Family Housing: Apartment Do you presently have visiting nurse or other home services: Yes Alcohol intake: never Smoking Status: Never smoker Use of substances other than those prescribed or required for medical reasons: No Currently Displaying Signs/Symptoms of Drug Intoxication Withdrawal: No Have you been hit, kicked, punched, or otherwise hurt by someone within the past year? If so, by whom?: No Do you feel safe in your current relationship?: Yes Is there a partner from a previous relationship who is making you feel unsafe now?: No Are you made to feel afraid or neglected: No Advance Directives: No Advance Directives Information Provided: Yes Do you have thoughts of harming others: None Do you have a plan to hurt others: No Plan Recently lost weight without trying: No service: No Current occupational status: disabled Sexual orientation: Straight/Heterosexual Gender identity: female Meds Allergies Allergy/AdvReac Type Severity Reaction Status Date / Time No Known Allergies Allergy Verified 10/04/20 16:58 [No Known Allergies*] Home Medications Medication Instructions Recorded Confirmed Type amlodipine 2.5 mg tablet 2.5 mg PO DAILY 09/22/20 10/04/20 History dulaglutide 0.75 mg/0.5 mL 0.75 mg SUBCUT WE 09/22/20 10/04/20 History subcutaneous pen injector furosemide 40 mg tablet 40 mg PO BID 09/22/20 10/04/20 History gabapentin 100 mg capsule 100 mg PO BEDTIME 09/22/20 10/04/20 History insulin glargine 100 unit/mL (3 15 unit SUBCUT DAILY 09/22/20 10/04/20 History mL) subcutaneous pen levothyroxine 25 mcg tablet 25 mcg PO DAILY 09/22/20 10/04/20 History losartan 100 mg tablet 100 mg PO DAILY 09/22/20 10/04/20 History metoprolol tartrate 25 mg tablet 25 mg PO BID 09/22/20 10/04/20 History omeprazole 20 mg capsule,delayed 20 mg PO DAILY 09/22/20 10/04/20 History release pen needle, diabetic 32 gauge x #50 ea 09/22/20 10/04/20 History rosuvastatin 10 mg tablet 10 mg PO BEDTIME 09/22/20 10/04/20 History aspirin 81 mg PO DAILY 10/01/20 10/04/20 History Physical Exam Vital Signs: Last Vital Signs Temp 98.2 F 10/05/20 11:22 Pulse 69 10/05/20 11:22 Resp 20 10/05/20 11:22 BP 130/73 10/05/20 11:22 Pulse Ox 98 10/05/20 11:22 Body Mass Index 41.0 Const Other: Appearance: Alert. Oriented X3. No acute distress. Eyes: Pupils equal, round and reactive to light. ENT: Pharynx normal. Neck: Normal inspection. Neck supple. CVS: rapid rate, regular rhythm. Pulses normal. Respiratory: No respiratory distress. Breath sounds normal. Abdomen: Soft and nontender. +BS x4 Skin: Skin warm and dry. Normal skin color. Normal skin turgor. No rashes. Extremities: No lower extremity edema. Diffuse tenderness to bilateral calves without edema, erythema or skin changes. No pitting edema. Tenderness of quadricep muscles as well. Neuro: Oriented X 3. No motor deficit. No sensory deficit. General: cooperative, comfortable and no acute distress Orientation/consciousness: oriented to person, oriented to place and oriented to time [facility] Head: Yes normal to inspection Eyes General: appearance normal, both eyes and all related structures Neck Neck: Yes normal visual inspection Chest Chest palpation & inspection: normal inspection of the chest Resp Effort & Inspection: normal respiratory effort Cardio Other: Appearance: Alert. Oriented X3. No acute distress. Eyes: Pupils equal, round and reactive to light. ENT: Pharynx normal. Neck: Normal inspection. Neck supple. CVS: rapid rate, regular rhythm. Pulses normal. Respiratory: No respiratory distress. Breath sounds normal. Abdomen: Soft and nontender. +BS x4 Skin: Skin warm and dry. Normal skin color. Normal skin turgor. No rashes. Extremities: No lower extremity edema. Diffuse tenderness to bilateral calves without edema, erythema or skin changes. No pitting edema. Tenderness of quadricep muscles as well. Neuro: Oriented X 3. No motor deficit. No sensory deficit. Jugular venous distension: no JVD Rate: regular rate Rhythm: regular rhythm Heart sounds: S1 normal heart sound present and S2 normal heart sound present GI Inspection: Yes normal to inspection Skin General skin exam: no rashes or lesions noted Neuro General: oriented to person, oriented to place and oriented to time Motor exam (neuro): 5/5 motor strength present throughout Results Lab Results Result Diagrams: 10/05/20 05:49 10/05/20 05:49 Lab results: Chemistry 10/04/20 10/05/20 18:39 05:49 Sodium 131 L 137 Potassium 4.6 4.3 Carbon Dioxide 22 23 BUN 49 H 42 H Creatinine 2.66 H 1.99 H Calcium 9.1 8.3 L D Hematology 10/04/20 10/05/20 18:39 05:49 WBC 10.4 7.3 Hgb 11.6 L 10.2 L Plt Count 308 D 282 Urinalysis 10/04/20 18:39 Urine Color YELLOW Urine Appearance CLEAR Urine pH 5.5 Ur Specific [place] 1.020 Urine Protein 2+ H Urine Glucose (UA) >=1000 H Urine Ketones NEG Urine Blood 2+ H Urine Nitrite NEG Ur Leukocyte Esterase NEG Urine RBC 15-29 H Urine WBC 0-2 Ur Squamous Epith Cells 3+ Laboratory Tests 12/20/18 10/01/20 10/04/20 08:50 17:59 18:39 Creatinine 1.87 H 2.65 H 2.66 H 10/05/20 05:49 Creatinine 1.99 H Assessment and Plan (1) Pneumonia due to COVID-19 virus: Status: Acute (2) Sepsis: Status: Acute (3) HTN (hypertension): Status: Acute (4) Hyperlipemia: Status: Acute (5) Type 2 diabetes mellitus: Status: Acute (6) Hypothyroidism: Status: Inactive (7) Peripheral neuropathy: Status: Acute (8) Hyponatremia: Status: Acute 1. JOSEPHINE: Scr decr today back to bsl ...BUT at risk for JOSEPHINE d/t COVID assoc cytokine storm and poss COVID direct effect on kidney 2. CKD 4: SCr 2.0 at bsl; most c/w DN 3. HypoNa: resolved and suspect it was d/t hyperglycemia 4. COVID 5. Anemia 6. Vol status: looks ok on exam REC: cont to track renal func UOP; avoid NToxins; if Scr incr again then hold cozaar will follow with team Procedures Abscess I/D Date of Service: 10/05/20
--- NOTE | 2020-10-05 14:10 | P.CDIC_ITS ---
CDI Concurrent Query Service Date: 10/05/20 Documentation Clarification: Please clarify if you are treating a proba ble/suspected/likely or confirmed: JOSEPHINE -present No JOSEPHINE Provider Response: Other Other Diagnosis: JOSEPHINE on ckd PLEASE DO NOT DELETE/MODIFY EXISTING CONTENT Additional information is needed in order to code to the highest accuracy and appropriate Severity of Illness (SOI). Please clarify the information noted below in your progress notes and discharge summary. Risk Factors/Clinical Indicators/Treatments 75 year old female admitted with + COVID Sepsis and Pneumonia, Hyponatremia Past Medical History of CKD 4 On 10/03/20: BUN 43, Creatinine 2.22 On 10/04/20: BUN 49, Creatinine 2.66 CDS: Jenifer Vieyra RN Contact Number: [phone] Please Review the information above and exercise your independent professional judgment in responding to the query. If you concur, pleas document in the PROGRESS NOTES and DISCHARGE SUMMARY. If you do not agree with the query, please document in the query above. THIS QUERY IS PART OF THE PERMANENT MEDICAL RECORD
--- NOTE | 2020-10-05 14:16 | P.CDIC_ITS ---
CDI Concurrent Query Service Date: 10/05/20 Documentation Clarification: Please clarify if you are treating a proba ble/suspected/likely or confirmed: Acute Hypoxic Respiratory Failure -present No Respiratory Failure Provider Response: Other Other Diagnosis: Acute respiratory failure hypoxemic. PLEASE DO NOT DELETE/MODIFY EXISTING CONTENT Additional information is needed in order to code to the highest accuracy and appropriate Severity of Illness (SOI). Please clarify the information noted below in your progress notes and discharge summary. Risk Factors/Clinical Indicators/Treatments 75 year old female admitted with Pneumonia due to COVID, Sepsis and Hyponatremia. Per ED, dyspnea, work of breathing, dry cough, tachypnea, hypoxic with SAT 85% room air, improved with nasal cannula. LA 3.5 Treated with Solu-Medrol and oxygen CDS: Jenifer Vieyra RN Contact Number: [phone] Please Review the information above and exercise your independent professional judgment in responding to the query. If you concur, pleas document in the PROGRESS NOTES and DISCHARGE SUMMARY. If you do not agree with the query, please document in the query above. THIS QUERY IS PART OF THE PERMANENT MEDICAL RECORD
[2020-10-05 16:32] LABS: Glucose, Whole Blood 299 mg/dL (60-115)
--- NOTE | 2020-10-05 18:01 | P.PNIM_ITS ---
Subjective Subjective Date of Service: 10/05/20 Interval History: Pneumonia secondary to COVID infection? Review of Systems Patient still feeling short of breath, has some cough otherwise denies any chest pain or abdominal pain or fever or chills Physical Exam Vital Signs: Vital Signs: Last Vital Signs Temp 96.4 F L 10/05/20 16:00 Pulse 73 10/05/20 16:00 Resp 20 10/05/20 16:00 BP 117/73 10/05/20 16:00 Pulse Ox 97 10/05/20 16:00 Body Mass Index 41.0 Physical exam: heent: Eyes anicteric, no discharge Neck supple Cvs: rrr, [id number] , no murmur res: Air entry slightly diminished at bases, otherwise no wheezing or rales. abd: no rebound or guarding ,nt, bs present. ext pulses present , no cyanosis neuro: axo3 , nonfocal. Objective Data Current Medications Generic Name Dose Route Start Last Admin Trade Name Freq PRN Reason Stop Dose Admin Amlodipine Besylate 2.5 mg 10/05/20 09:00 10/05/20 08:14 Amlodipine Besylate 2.5 Mg Tablet PO 2.5 mg DAILY [facility] Administration Protocol Aspirin 81 mg 10/05/20 09:00 10/05/20 08:12 Aspirin Enteric Coated 81 Mg Tablet. PO 81 mg DAILY [facility] Administration Atorvastatin Calcium 40 mg 10/05/20 09:00 10/05/20 08:14 Atorvastatin Calcium 40 Mg Tablet PO 40 mg DAILY [facility] Administration Dexamethasone Sodium Phosphate 6 mg 10/05/20 09:00 10/05/20 11:02 Dexamethasone Sod Phosphate 4 Mg/Ml Vial IVPUSH 6 mg DAILY [facility] Administration Gabapentin 100 mg 10/05/20 21:00 Gabapentin 100 Mg Capsule PO BEDTIME [facility] Heparin Sodium (Porcine) 5,000 unit 10/05/20 03:00 10/05/20 08:12 Heparin Sodium,Porcine 5,000 Unit/Ml Vial SUBCUT 5,000 unit Q8H [facility]LEEN Administration Insulin Human Lispro 0 unit 10/05/20 07:30 10/05/20 16:47 Insulin Lispro 100 Unit/Ml 3 Ml Vial SUBCUT 10/05/20 23:45 6 unit QIDACHS [facility]LEEN Administration Protocol Levothyroxine Sodium 25 mcg 10/05/20 06:00 10/05/20 04:42 Levothyroxine Sodium 25 Mcg Tablet PO 25 mcg DAILY@0600 [facility] Administration Losartan Potassium 100 mg 10/05/20 09:00 10/05/20 08:12 Losartan Potassium 50 Mg Tablet PO 100 mg DAILY [facility] Administration Protocol Metoprolol Tartrate 25 mg 10/05/20 09:00 10/05/20 08:11 Metoprolol Tartrate 25 Mg Tablet PO 25 mg BID [facility] Administration Protocol Omeprazole 20 mg 10/05/20 09:00 10/05/20 08:12 Omeprazole 20 Mg Capsule.Dr PO 20 mg DAILY [facility] Administration Labs CBC & Chem 7: 10/05/20 05:49 10/05/20 05:49 Assessment and Plan (1) CKD (chronic kidney disease), stage IV: Status: Acute (2) Pneumonia due to COVID-19 virus: Status: Acute (3) Sepsis: Status: Acute (4) HTN (hypertension): Status: Acute (5) Hyperlipemia: Status: Acute (6) Type 2 diabetes mellitus: Status: Acute (7) Hypothyroidism: Status: Inactive (8) Peripheral neuropathy: Status: Acute (9) Hyponatremia: Status: Acute Assessment and Plan: 1. Pneumonia secondary to COVID infection probably Shortness of breath slowly improving Also sats are improving now on 2 L saturating in 90s Will add dexamethasone res panel -positive for covid , blood culture pending Id evaluation for further recommendation 2.Htn: Continue amlodpine ,metoprolol and losartan, blood pressure stable. continue with home BP meds 3. nadeen n ckd:seems to improved to basleine , lasix on hold Hyponatremia also improved with holding Lasix. Nephro evaluation 4. Diabetes:uncontrolled Fingersticks with adjusted coverage, lantus added. 5. Hypothyroidism: continue with levothyroxine.
[2020-10-05 20:42] LABS: Glucose, Whole Blood 419 mg/dL (60-115)
[2020-10-05] MEDS: Gabapentin 100 MG CAPSULE PO (21:07)
[2020-10-05 21:50] LABS: Glucose, Whole Blood 375 mg/dL (60-115)
[2020-10-06] VITALS (10 sets, daily range): BP systolic 140–165; BP diastolic 71–81; PULSE 65–96; RESP 16–20; TEMP 36.2–36.8; O2SAT 94–96
[2020-10-06] MEDS: Heparin Sodium,Porcine 5,000 UNIT/ML VIAL 5000 UNIT SUBCUT ×3 (02:12→20:01)
[2020-10-06] MEDS: Levothyroxine Sodium 25 MCG TABLET PO (05:24)
[2020-10-06 07:30] LABS: Glucose, Whole Blood 385 mg/dL (60-115)
[2020-10-06 08:01] LABS: Anion Gap 17 (12-20); Blood Urea Nitrogen 43 mg/dL (9-16); Calcium 8.5 mg/dL (8.4-10.2); Carbon Dioxide 21 mmol/L (22-29); Chloride 102 mmol/L (96-108); Creatinine Clr Calc Pharmacy 32.2; Estimated Glomerular Filt Rate 25; Glucose Random 386 mg/dL (60-115); Potassium 4.6 mmol/l (3.3-5.1); Sodium 135 mmol/L (135-145)
[2020-10-06] MEDS: Insulin Glargine,Hum.rec.anlog 100 UNIT/ML 10 ML VIAL 15 UNIT SUBCUT (08:21)
[2020-10-06] MEDS: dexAMETHasone sod phosphate 4 MG/ML VIAL 6 MG IVPUSH (08:21)
[2020-10-06] MEDS: Omeprazole 20 MG CAPSULE.DR PO (08:21)
[2020-10-06] MEDS: Atorvastatin Calcium 40 MG TABLET PO (08:22)
[2020-10-06] MEDS: amLODIPine Besylate 2.5 MG TABLET PO (08:22)
[2020-10-06] MEDS: Losartan Potassium 50 MG TABLET 100 MG PO (08:22)
[2020-10-06] MEDS: Aspirin Enteric Coated 81 MG TABLET.DR PO (08:23)
[2020-10-06] MEDS: Metoprolol Tartrate 25 MG TABLET PO ×2 (08:23→20:01)
--- NOTE | 2020-10-06 09:22 | MHC.CM.PN ---
DP Home with resumption of [employer] services, [employer]. Pt is open to [facility] if indicated.family will provide transportation. CM will follow.
[2020-10-06 11:13] LABS: Glucose, Whole Blood 470 mg/dL (60-115)
[2020-10-06] MEDS: Insulin Lispro 100 UNIT/ML 3 ML VIAL SUBCUT ×3 (11:31→18:51)
[2020-10-06 12:43] LABS: Glucose, Whole Blood 464 mg/dL (60-115)
[2020-10-06 14:12] LABS: Glucose, Whole Blood 476 mg/dL (60-115)
--- NOTE | 2020-10-06 15:32 | W.PM.IDCN ---
History of Present Illness Data of Consult Service Date: 10/06/20 Requesting physician: Jersey Bazzi Primary Care Provider: MD CHELSEA Ramirez Reason for consult: COVID She presents to hospital with cough and shortness of breath. She had been [id number] hours and discharged 10/01. She has received Decadron but has not needed oxygen She has had 10 days of symptoms Review of Systems Review of Systems: Yes all other systems are reviewed and are negative PMFSH Past Medical History Medical History Arthritis History of hysteroscopy History of right breast cancer HTN (hypertension) Hyperlipemia Hypothyroidism Type 2 diabetes mellitus Functional capacity: independent ambulation Surgical History Surgical History H/O eye surgery H/O right mastectomy History of tubal ligation Social History Social History Household Members: Family Housing: Apartment Do you presently have visiting nurse or other home services: Yes Alcohol intake: never Smoking Status: Never smoker Use of substances other than those prescribed or required for medical reasons: No Currently Displaying Signs/Symptoms of Drug Intoxication Withdrawal: No Have you been hit, kicked, punched, or otherwise hurt by someone within the past year? If so, by whom?: No Do you feel safe in your current relationship?: Yes Is there a partner from a previous relationship who is making you feel unsafe now?: No Are you made to feel afraid or neglected: No Advance Directives: No Advance Directives Information Provided: Yes Do you have thoughts of harming others: None Do you have a plan to hurt others: No Plan Recently lost weight without trying: No service: No Current occupational status: disabled Sexual orientation: Straight/Heterosexual Gender identity: female Meds Allergies Allergy/AdvReac Type Severity Reaction Status Date / Time No Known Allergies Allergy Verified 10/04/20 16:58 [No Known Allergies*] Home Medications Medication Instructions Recorded Confirmed Type amlodipine 2.5 mg tablet 2.5 mg PO DAILY 09/22/20 10/04/20 History dulaglutide 0.75 mg/0.5 mL 0.75 mg SUBCUT WE 09/22/20 10/04/20 History subcutaneous pen injector furosemide 40 mg tablet 40 mg PO BID 09/22/20 10/04/20 History gabapentin 100 mg capsule 100 mg PO BEDTIME 09/22/20 10/04/20 History insulin glargine 100 unit/mL (3 15 unit SUBCUT DAILY 09/22/20 10/04/20 History mL) subcutaneous pen levothyroxine 25 mcg tablet 25 mcg PO DAILY 09/22/20 10/04/20 History losartan 100 mg tablet 100 mg PO DAILY 09/22/20 10/04/20 History metoprolol tartrate 25 mg tablet 25 mg PO BID 09/22/20 10/04/20 History omeprazole 20 mg capsule,delayed 20 mg PO DAILY 09/22/20 10/04/20 History release pen needle, diabetic 32 gauge x #50 ea 09/22/20 10/04/20 History rosuvastatin 10 mg tablet 10 mg PO BEDTIME 09/22/20 10/04/20 History aspirin 81 mg PO DAILY 10/01/20 10/04/20 History Physical Exam Vital Signs: Vital Signs: Last Vital Signs Temp 98.2 F 10/06/20 15:05 Pulse 96 10/06/20 15:05 Resp 18 10/06/20 15:05 BP 159/81 H 10/06/20 15:05 Pulse Ox 95 10/06/20 15:05 Body Mass Index 41.0 Const: General: cooperative HENMT: Head: Yes normal to inspection Mouth: abnormal oral mucosae Resp: Effort & Inspection: normal respiratory effort Cardio: Rate: regular rate Rhythm: regular rhythm GI: Inspection: Yes normal to inspection Extrem: General: Yes normal to inspection Assessment and Plan (1) COVID-19: Problem details: She is doing better and has no fever or chills She is not hypoxic Status: Acute Would finish 10 day course steroids (has had before) Would not give Remdesivir or other treatment No antibiotics (2) Pneumonia due to COVID-19 virus: Status: Acute Results Labs CBC & Chem 7: 10/05/20 05:49 10/06/20 05:36 Labs: BMP 10/06/20 05:36 Sodium 135 Potassium 4.6 Chloride 102 Carbon Dioxide 21 L BUN 43 H Creatinine 1.97 H Calcium 8.5 Microbiology Microbiology Results: Microbiology 10/04/20 19:41 Blood - Venous Blood Culture - Preliminary No growth after 24 hours. 10/04/20 18:39 Blood - Venous Blood Culture - Preliminary No growth after 24 hours.
[2020-10-06 15:46] LABS: Glucose, Whole Blood 427 mg/dL (60-115)
--- NOTE | 2020-10-06 15:58 | P.PNIM_ITS ---
Subjective Subjective Date of Service: 10/07/20 Interval History: covid pneumonia , anxiety Review of Systems Patient says that she still feeling tired but shortness of breath is slowly improving, denies any chest pain or abdominal pain or fever chills Physical Exam Vital Signs: Vital Signs: Last Vital Signs Temp 98.2 F 10/06/20 15:05 Pulse 96 10/06/20 15:05 Resp 18 10/06/20 15:05 BP 159/81 H 10/06/20 15:05 Pulse Ox 95 10/06/20 15:05 Body Mass Index 41.0 Physical exam: Cvs: rrr, [id number] , no murmur res: groslsly fair air entry slightly diminshed at bases . abd: no rebound or guarding ,nt, bs present. ext pulses present , no cyanosis neuro: axo3 , nonfocal. Objective Data Current Medications Generic Name Dose Route Start Last Admin Trade Name Freq PRN Reason Stop Dose Admin Amlodipine Besylate 2.5 mg 10/05/20 09:00 10/06/20 08:22 Amlodipine Besylate 2.5 Mg Tablet PO 2.5 mg DAILY [facility] Administration Protocol Aspirin 81 mg 10/05/20 09:00 10/06/20 08:23 Aspirin Enteric Coated 81 Mg Tablet.Dr PO 81 mg DAILY [facility] Administration Atorvastatin Calcium 40 mg 10/05/20 09:00 10/06/20 08:22 Atorvastatin Calcium 40 Mg Tablet PO 40 mg DAILY [facility] Administration Dexamethasone Sodium Phosphate 6 mg 10/05/20 09:00 10/06/20 08:21 Dexamethasone Sod Phosphate 4 Mg/Ml Vial IVPUSH 6 mg DAILY [facility] Administration Gabapentin 100 mg 10/05/20 21:00 10/05/20 21:07 Gabapentin 100 Mg Capsule PO 100 mg BEDTIME [facility] Administration Heparin Sodium (Porcine) 5,000 unit 10/05/20 03:00 10/06/20 11:32 Heparin Sodium,Porcine 5,000 Unit/Ml Vial SUBCUT 5,000 unit Q8H [facility] Administration Insulin Glargine 15 unit 10/06/20 09:00 10/06/20 08:21 Insulin Glargine,Hum.Rec.Anlog 100 Unit/Ml 10 Ml Vial SUBCUT 15 unit DAILY [facility] Administration Insulin Glargine 5 unit 10/06/20 21:00 Insulin Glargine,Hum.Rec.Anlog 100 Unit/Ml 10 Ml Vial SUBCUT BEDTIME [facility] Insulin Human Lispro 0 unit 10/06/20 11:30 10/06/20 11:31 Insulin Lispro 100 Unit/Ml 3 Ml Vial SUBCUT 16 unit QIDACHS [facility] Administration Protocol Levothyroxine Sodium 25 mcg 10/05/20 06:00 10/06/20 05:24 Levothyroxine Sodium 25 Mcg Tablet PO 25 mcg DAILY@0600 [facility] Administration Losartan Potassium 100 mg 10/05/20 09:00 10/06/20 08:22 Losartan Potassium 50 Mg Tablet PO 100 mg DAILY [facility] Administration Protocol Metoprolol Tartrate 25 mg 10/05/20 09:00 10/06/20 08:23 Metoprolol Tartrate 25 Mg Tablet PO 25 mg BID [facility] Administration Protocol Omeprazole 20 mg 10/05/20 09:00 10/06/20 08:21 Omeprazole 20 Mg Capsule.Dr PO 20 mg DAILY [facility] Administration Labs CBC & Chem 7: 10/05/20 05:49 10/07/20 06:03 Microbiology Microbiology Results: Microbiology 10/04/20 19:41 Blood - Venous Blood Culture - Preliminary No growth after 24 hours. 10/04/20 18:39 Blood - Venous Blood Culture - Preliminary No growth after 24 hours. Assessment and Plan (1) COVID-19: Problem details: She is doing better and has no fever or chills She is not hypoxic Status: Acute (2) CKD (chronic kidney disease), stage IV: Problem details: 1. JOSEPHINE: Scr to bsl ...BUT at risk for JOSEPHINE d/t COVID assoc cytokine storm and poss COVID direct effect on kidney 2. CKD 4: SCr 2.0 at bsl; most c/w DN 3. HypoNa: resolved and suspect it was d/t hyperglycemia 4. COVID 5. Anemia 6. Vol status: looks ok on exam REC: cont to track renal func UOP; avoid NToxins; if Scr incr again then hold cozaar; may need IVF if oral intake is poor Status: Acute (3) Pneumonia due to COVID-19 virus: Status: Acute (4) Sepsis: Status: Acute (5) HTN (hypertension): Status: Acute (6) Hyperlipemia: Status: Acute (7) Type 2 diabetes mellitus: Status: Acute (8) Peripheral neuropathy: Status: Acute (9) Hyponatremia: Status: Acute Assessment and Plan: 1. Pneumonia secondary to COVID infection probably Shortness of breath slowly improving Also sats are improving now on 2 L saturating in 90s, now taken off oxygen Will add dexamethasone res panel -positive for covid , blood culture pending id eval pending 2.Htn: Continue amlodpine ,metoprolol and losartan, blood pressure stable. continue with home BP meds 3. josephine n ckd:seems to improved to basleine , lasix on hold Hyponatremia also improved with holding Lasix. Nephro noted -ckd stage 4, near baseline 4. Diabetes:uncontrolled probable due to steriod ? fs in 400's Fingersticks with adjusted coverage, lantus adjusted . d/w id -no need for further dexamethasone 5. Hypothyroidism: continue with levothyroxine.
--- NOTE | 2020-10-06 16:11 | PM.PNNEP ---
Subjective Subjective Interval history: covid pneumonia , anxiety c/o SOB Physical Exam Vital Signs: Vital Signs: Last Vital Signs Temp 98.2 F 10/05/20 11:22 Pulse 69 10/05/20 11:22 Resp 20 10/05/20 11:22 BP 130/73 10/05/20 11:22 Pulse Ox 98 10/05/20 11:22 Body Mass Index 41.0 Const: Other: Last Vital Signs Temp 98.2 F 10/05/20 11:22 Pulse 69 10/05/20 11:22 Resp 20 10/05/20 11:22 BP 130/73 10/05/20 11:22 Pulse Ox 98 10/05/20 11:22 Body Mass Index 41.0 General: cooperative, comfortable and no acute distress Orientation/consciousness: oriented to person, oriented to place and oriented to time HENMT: Head: Yes normal to inspection Eyes: General: appearance normal, both eyes and all related structures Neck: Neck: Yes normal visual inspection Chest: Chest palpation & inspection: normal inspection of the chest Resp: Effort & Inspection: normal respiratory effort Cardio: Other: Last Vital Signs Temp 98.2 F 10/05/20 11:22 Pulse 69 10/05/20 11:22 Resp 20 10/05/20 11:22 BP 130/73 10/05/20 11:22 Pulse Ox 98 10/05/20 11:22 Body Mass Index 41.0 Jugular venous distension: no JVD Rate: regular rate Rhythm: regular rhythm Heart sounds: S1 normal heart sound present and S2 normal heart sound present GI: Inspection: Yes normal to inspection Skin: General skin exam: no rashes or lesions noted Neuro: General: oriented to person, oriented to place and oriented to time Motor exam (neuro): 5/5 motor strength present throughout Assessment & Plan Assessment and plan (1) Pneumonia due to COVID-19 virus: Status: Acute (2) Sepsis: Status: Acute (3) HTN (hypertension): Status: Acute (4) Hyperlipemia: Status: Acute (5) Type 2 diabetes mellitus: Status: Acute (6) Hypothyroidism: Status: Inactive (7) Peripheral neuropathy: Status: Acute (8) Hyponatremia: Status: Acute Assessment and Plan: 1. JOSEPHINE: Scr decr today back to bsl ...BUT at risk for JOSEPHINE d/t COVID assoc cytokine storm and poss COVID direct effect on kidney 2. CKD 4: SCr 2.0 at bsl; most c/w DN 3. HypoNa: resolved and suspect it was d/t hyperglycemia 4. COVID 5. Anemia 6. Vol status: looks ok on exam REC: cont to track renal func UOP; avoid NToxins; if Scr incr again then hold cozaar; may need IVF if incr IWL and poor intake will follow with team Time Spent With Patient Time: Total time spent is greater than 50% in coordination of care (as documented) at patient's floor/unit and/or counseling patient: Procedures Abscess I/D Date of Service: 10/06/20
[2020-10-06 17:05] LABS: Glucose, Whole Blood 447 mg/dL (60-115)
[2020-10-06] MEDS: Insulin Glargine,Hum.rec.anlog 100 UNIT/ML 10 ML VIAL SUBCUT (17:16)
--- NOTE | 2020-10-06 17:52 | MHC.CARE ---
CARE team meets with patient via phone along with [employer] diplomatic interpreter. Patient identifies increased stress, which directly coincides with having covid-19. Pt denied any hx of mental health treatment, and reported no anxiety or depression prior in hx. Pt denied SI. Pt appears to be having an expected emotional response to being ill. She identifies that once she recovers, she believes that she will no longer struggle with any anxiety. She denies needing mental health intervention at this time, and declined offers for referral to outpatient therapy or psychiatry. CARE Team suggests to pt that she ask RN to contact CARE Team should she need additional support or resources.
[2020-10-06 18:21] LABS: Glucose, Whole Blood 462 mg/dL (60-115)
[2020-10-06] MEDS: Insulin Lispro 100 UNIT/ML 3 ML VIAL 10 UNIT SUBCUT (18:50)
[2020-10-06 18:55] LABS: Glucose, Whole Blood 424 mg/dL (60-115)
--- NOTE | 2020-10-06 19:18 | PC.NURSE ---
blood sugar above 400 throughout the day, pt asymptomatic and md aware. insulin given per adjusted sliding scale. blood sugar remaining over 400. md ordered to give nighttime sliding scale dose and additional 10 units for a total of 20 units of humalog. blood sugar checks q 1 hour at this time. passed info to oncoming RN.
[2020-10-06] MEDS: Gabapentin 100 MG CAPSULE PO (20:01)
[2020-10-06 20:11] LABS: Glucose, Whole Blood 419 mg/dL (60-115)
[2020-10-06 22:09] LABS: Glucose, Whole Blood 302 mg/dL (60-115)
[2020-10-06 22:55] LABS: Glucose, Whole Blood 268 mg/dL (60-115)
[2020-10-07] VITALS (7 sets, daily range): BP systolic 127–160; BP diastolic 64–85; PULSE 7–85; RESP 18; TEMP 35.9–36.7; O2SAT 90–98
[2020-10-07 00:48] LABS: Glucose, Whole Blood 248 mg/dL (60-115)
[2020-10-07 01:19] LABS: Glucose, Whole Blood 230 mg/dL (60-115)
[2020-10-07 02:21] LABS: Glucose, Whole Blood 236 mg/dL (60-115)
[2020-10-07] MEDS: Heparin Sodium,Porcine 5,000 UNIT/ML VIAL 5000 UNIT SUBCUT ×2 (04:12→12:23)
[2020-10-07] MEDS: Levothyroxine Sodium 25 MCG TABLET PO (04:13)
[2020-10-07 07:35] LABS: Anion Gap 15 (12-20); Blood Urea Nitrogen 47 mg/dL (9-16); Carbon Dioxide 25 mmol/L (22-29); Chloride 102 mmol/L (96-108); Creatinine Clr Calc Pharmacy 31.1; Estimated Glomerular Filt Rate 24; Glucose Random 271 mg/dL (60-115); Potassium 4.7 mmol/l (3.3-5.1); Sodium 137 mmol/L (135-145)
[2020-10-07 08:08] LABS: Glucose, Whole Blood 264 mg/dL (60-115)
[2020-10-07] MEDS: Insulin Lispro 100 UNIT/ML 3 ML VIAL SUBCUT ×3 (08:23→17:33)
[2020-10-07] MEDS: Atorvastatin Calcium 40 MG TABLET PO (08:24)
[2020-10-07] MEDS: Insulin Lispro 100 UNIT/ML 3 ML VIAL 10 UNIT SUBCUT ×3 (08:24→17:34)
[2020-10-07] MEDS: Insulin Glargine,Hum.rec.anlog 100 UNIT/ML 10 ML VIAL 15 UNIT SUBCUT (08:24)
[2020-10-07] MEDS: amLODIPine Besylate 2.5 MG TABLET PO (08:25)
[2020-10-07] MEDS: Losartan Potassium 50 MG TABLET 100 MG PO (08:25)
[2020-10-07] MEDS: Metoprolol Tartrate 25 MG TABLET PO (08:26)
[2020-10-07] MEDS: Aspirin Enteric Coated 81 MG TABLET.DR PO (08:26)
[2020-10-07] MEDS: Omeprazole 20 MG CAPSULE.DR PO (08:27)
--- NOTE | 2020-10-07 08:42 | PM.PNNEP ---
Subjective Subjective Interval history: Events noted Physical Exam Vital Signs: Vital Signs: Last Vital Signs Temp 98 F 10/07/20 07:26 Pulse 70 10/07/20 08:26 Resp 18 10/07/20 07:26 BP 158/85 H 10/07/20 08:26 Pulse Ox 98 10/07/20 07:26 Body Mass Index 41.0 Assessment & Plan Assessment and plan (1) CKD (chronic kidney disease), stage IV: Problem details: 1. JOSEPHINE: Scr to bsl ...BUT at risk for JOSEPHINE d/t COVID assoc cytokine storm and poss COVID direct effect on kidney 2. CKD 4: SCr 2.0 at bsl; most c/w DN 3. HypoNa: resolved and suspect it was d/t hyperglycemia 4. COVID 5. Anemia 6. Vol status: looks ok on exam REC: cont to track renal func UOP; avoid NToxins; if Scr incr again then hold cozaar; may need IVF if oral intake is poor Status: Acute Procedures Abscess I/D Date of Service: 10/07/20
[2020-10-07 12:12] LABS: Glucose, Whole Blood 247 mg/dL (60-115)
--- NOTE | 2020-10-07 13:39 | PM.DS ---
DS: Providers Provider Date of admission: 10/04/20 23:45 Primary care physician: Royal Pitt MD Consults: 10/04/20 23:45 Consult to Infectious Diseases Routine Consulting Provider: Infectious Disease Reason for consultation: covid infection Has provider been notified: No 10/04/20 23:48 Consult to Nephrology Routine Consulting Provider: [facility] Reason for consultation: hyponatremia Has provider been notified: No 10/06/20 11:01 Consult to Infectious Diseases Routine Consulting Provider: Erica Hernandez Reason for consultation: covid infection Has provider been notified: No 10/06/20 12:00 Consult to Care Team Routine Comment: Reason for consultation: anxiety/depression DS: Diagnosis Discharge Diagnosis (1) COVID-19: Status: Acute Problem details: She is doing better and has no fever or chills She is not hypoxic (2) CKD (chronic kidney disease), stage IV: Status: Acute Problem details: 1. JOSEPHINE: Scr to bsl ...BUT at risk for JOSEPHINE d/t COVID assoc cytokine storm and poss COVID direct effect on kidney 2. CKD 4: SCr 2.0 at bsl; most c/w DN 3. HypoNa: resolved and suspect it was d/t hyperglycemia 4. COVID 5. Anemia 6. Vol status: looks ok on exam REC: cont to track renal func UOP; avoid NToxins; if Scr incr again then hold cozaar; may need IVF if oral intake is poor (3) Pneumonia due to COVID-19 virus: Status: Acute (4) Sepsis: Status: Acute (5) HTN (hypertension): Status: Acute (6) Hyperlipemia: Status: Acute (7) Type 2 diabetes mellitus: Status: Acute (8) Peripheral neuropathy: Status: Acute (9) Hyponatremia: Status: Acute DS: Medications Discharge Medications Home Medications: Home Medications Medication Instructions Recorded Confirmed amlodipine 2.5 mg tablet 2.5 mg PO DAILY 09/22/20 10/04/20 dulaglutide 0.75 mg/0.5 mL 0.75 mg SUBCUT WE 09/22/20 10/04/20 subcutaneous pen injector furosemide 40 mg tablet 40 mg PO BID 09/22/20 10/04/20 gabapentin 100 mg capsule 100 mg PO BEDTIME 09/22/20 10/04/20 insulin glargine 100 unit/mL (3 15 unit SUBCUT DAILY 09/22/20 10/04/20 mL) subcutaneous pen levothyroxine 25 mcg tablet 25 mcg PO DAILY 09/22/20 10/04/20 losartan 100 mg tablet 100 mg PO DAILY 09/22/20 10/04/20 metoprolol tartrate 25 mg tablet 25 mg PO BID 09/22/20 10/04/20 omeprazole 20 mg capsule,delayed 20 mg PO DAILY 09/22/20 10/04/20 release pen needle, diabetic 32 gauge x #50 ea 09/22/20 10/04/20 rosuvastatin 10 mg tablet 10 mg PO BEDTIME 09/22/20 10/04/20 aspirin 81 mg PO DAILY 10/01/20 10/04/20 DS: Summary Hospital Course Hospital Course: 75 y/o female with an extensive PMHX who presented from home c/o worsening SOB and fatigue. Patient was recently discharged from our facility, treated for covid pneumonia with decadron with successful recovery. Today presents from home reporting that her symptoms got worse specially with ambulation and felt severely fatigue for what decided to come back to our hospital. Denies any episode of fever at home. Denies any chest pain, nausea, vomiting, diarrhea or constipation. On presentation to the ED was noted to be tachycardic, tachypneic and hypoxic ~85 on room air which improved on nasal cannula. CXR shows persistent but improved bilateral patchy opacities. CTA negative for PE and Doppler LE negative for DVT. No further treatment was given per ED and decision for admission was given. Patient was seen and evaluated at the bedside, laying down in bed in no acute distress. ROS as above otherwise negative. Physical exam unremarkable. One dose of Solumedrol ordered stat and respiratory panel. PMHx: Arthritis History of hysteroscopy History of right breast cancer HTN (hypertension) Hyperlipemia Hypothyroidism Osteoporosis Type 2 diabetes mellitus Hospital course problem gleason section : Patient is recent COVID infection-was recently discharged was on dexamethasone and shortness of breath improved and then she end up back was started back on dexamethasone: Shortness of breath improved and saturating well above 90 % on room air. Patient denies any new symptoms. Seen by infectious disease recommended to hold off dexamethasone since patient already improved and also because contributing to hyperglycemia and uncontrolled diabetes. Assessment and plan coordination time 50minutes. Significant findings: As above. Procedures performed: None. Treatment and response: As above. Complications: None. Time Spent with Patient Time attestation: Total time spent providing and/or coordinating discharge services: Physical Exam Vital Signs: Vital Signs: Last Vital Signs Temp 98 F 10/07/20 11:51 Pulse 69 10/07/20 11:51 Resp 18 10/07/20 11:51 BP 133/64 10/07/20 11:51 Pulse Ox 96 10/07/20 11:51 Body Mass Index 41.0 Physical exam: heent: eyes anicteric , no discharge. Cvs: rrr, [id number] , no murmur res: clear to auscultation ,no rhonchii or wheezing abd: no rebound or guarding ,nt, bs present. ext pulses present , no cyanosis DS: Data Data Completed and Pending Labs on day of discharge: 10/04/20 ECG 12 lead EKG Stat 10/04/20 17:10 EKG Documentation DIRECTED 10/04/20 17:15 0.9 % Sodium Chloride [Ns] 1,000 ml IVCONT 999 mls/hr 10/04/20 17:40 XR chest 1V Stat 10/04/20 17:46 US venous duplex LE BI Stat 10/04/20 18:39 Acetone, serum QL Stat Basic Metabolic Panel Stat C Reactive Protein Stat Complete Blood Count Auto Diff Stat D Dimer Stat Lactate Dehydrogenase Stat Lactic Acid Stat Liver Panel Stat Magnesium Stat Procalcitonin Stat SLIDE REVIEW Stat Troponin-I High Sensitivity Stat 10/04/20 18:48 NM pul perfusion Stat 10/04/20 19:30 0.9 % Sodium Chloride [Ns] 1,000 ml IVCONT 999 mls/hr 10/04/20 19:34 Add Laboratory Test Stat 10/04/20 20:28 Insulin Lispro [Humalog] 14 unit SUBCUT ONCE ONE 10/04/20 21:34 Glucose, Whole Blood Routine 10/04/20 22:51 ~Lactic Acid-LAB USE ONLY Stat 10/04/20 23:15 Insulin Lispro [Humalog] 10 unit SUBCUT ONCE ONE 10/04/20 23:21 methylPREDNISolone Sod Succ/PF [SOLU-MedroL] 40 mg IM ONCE ONE 10/04/20 23:41 Transfer Order Routine 10/05/20 00:16 Resp pnl result confirmation Stat Respiratory Panel Stat 10/05/20 00:53 COVID-19 ID NOW ([place]) Stat 10/05/20 01:41 ~Lactic Acid-LAB USE ONLY Stat 10/05/20 01:46 Glucose, Whole Blood Routine 10/05/20 02:24 Glucose, blood poc QIDACHS 10/05/20 05:02 Glucose, Whole Blood Routine 10/05/20 05:49 Basic Metabolic Panel Routine Complete Blood Count Auto Diff Routine SLIDE REVIEW Routine 10/05/20 06:03 Insulin Lispro [Humalog] 5 unit SUBCUT ONCE ONE 10/05/20 07:30 Insulin Lispro [Humalog] See Protocol SUBCUT QIDACHS 10/05/20 07:44 Glucose, Whole Blood Routine 10/05/20 09:00 dexAMETHasone sod phosphate [Decadron] 6 mg IVPUSH DAILY 10/05/20 11:07 Glucose, Whole Blood Routine 10/05/20 16:23 Glucose, Whole Blood Routine 10/05/20 20:29 Glucose, Whole Blood Routine 10/05/20 21:47 Glucose, Whole Blood Routine 10/05/20 22:10 Insulin Lispro [Humalog] 10 unit SUBCUT ONCE ONE 10/06/20 05:36 Basic Metabolic Panel DAILY@0600 10/06/20 07:20 Glucose, Whole Blood Routine 10/06/20 09:00 Insulin Glargine,Hum.rec.anlog [Lantus] 12 unit SUBCUT DAILY 10/06/20 11:04 Glucose, Whole Blood Routine 10/06/20 11:30 Insulin Lispro [Humalog] See Protocol SUBCUT QIDACHS 10/06/20 12:40 Glucose, Whole Blood Routine 10/06/20 14:09 Glucose, Whole Blood Routine 10/06/20 15:43 Glucose, Whole Blood Routine 10/06/20 17:02 Glucose, Whole Blood Routine 10/06/20 18:17 Glucose, Whole Blood Routine 10/06/20 18:49 Glucose, Whole Blood Routine 10/06/20 19:59 Glucose, Whole Blood Routine 10/06/20 22:03 Glucose, Whole Blood Routine 10/06/20 22:52 Glucose, Whole Blood Routine 10/07/20 00:44 Glucose, Whole Blood Routine 10/07/20 01:15 Glucose, Whole Blood Routine 10/07/20 02:17 Glucose, Whole Blood Routine 10/07/20 06:03 Basic Metabolic Panel DAILY@0600 10/07/20 07:28 Glucose, Whole Blood Routine 10/07/20 11:53 Glucose, Whole Blood Routine Laboratory Last Values WBC 7.3 X10*3/uL (4.8-10.8) 10/05/20 05:49 RBC 3.32 X10*6/uL (4.20-5.50) L 10/05/20 05:49 Hgb 10.2 g/dl (12.0-16.0) L 10/05/20 05:49 Hct 30.9 % (37-47) L 10/05/20 05:49 MCV 93.1 fL (80-98) 10/05/20 05:49 MCH 30.7 pg (27.0-33.0) 10/05/20 05:49 MCHC 33.0 g/dl (31.0-35.0) 10/05/20 05:49 RDW 12.1 % (11.0-16.0) 10/05/20 05:49 Plt Count 282 X10*3/uL (160-400) 10/05/20 05:49 MPV 10.2 fL (9.4-12.3) 10/05/20 05:49 Immature Gran % (Auto) 1.4 % (0.0-0.4) H 10/05/20 05:49 Neut % (Auto) 84.8 % (45-73) H 10/05/20 05:49 Lymph % (Auto) 10.9 % (20-40) L 10/05/20 05:49 Porter % (Auto) 2.9 % (2-11) 10/05/20 05:49 Eos % (Auto) 0.0 % (0-4) 10/05/20 05:49 Baso % (Auto) 0.0 % (0-2) 10/05/20 05:49 Lymph # (Auto) 0.8 X10*3/uL (1.2-4.9) L 10/05/20 05:49 Porter # (Auto) 0.2 X10*3/uL (0.1-1.2) 10/05/20 05:49 Eos # (Auto) 0.0 X10*3/uL (0.0-0.4) 10/05/20 05:49 Baso # (Auto) 0.0 X10*3/uL (0.0-0.2) 10/05/20 05:49 Abs Immat Gran (auto) 0.10 X10*3/uL (0.00-0.03) H 10/05/20 05:49 Absolute Neuts (auto) 6.2 X10*3/uL (2.0-8.3) 10/05/20 05:49 Absolute Nucleated RBC 0.000 X10*3/uL (0.0-0.012) 10/05/20 05:49 Nucleated RBC % (auto) 0.0 /100WBC (0.0-0.2) 10/05/20 05:49 Smear Tech's Comments VERIFIED 10/05/20 05:49 D-Dimer 873 NG/ML 10/04/20 18:39 Sodium 137 mmol/L (135-145) 10/07/20 06:03 Potassium 4.7 mmol/l (3.3-5.1) 10/07/20 06:03 Chloride 102 mmol/L (96-108) 10/07/20 06:03 Carbon Dioxide 25 mmol/L (22-29) 10/07/20 06:03 Anion Gap 15 (12-20) 10/07/20 06:03 BUN 47 mg/dL (9-16) H 10/07/20 06:03 Creatinine 2.04 mg/dL (0.5-1.4) H 10/07/20 06:03 Estim Creat Clear Calc 31.1 10/07/20 06:03 Estimated GFR 24 10/07/20 06:03 POC Glucose 247 mg/dL (60-115) H 10/07/20 11:53 Random Glucose 271 mg/dL (60-115) H 10/07/20 06:03 Lactic Acid 3.5 mmol/L (0.5-2.0) H* 10/04/20 18:39 Lactic Acid Fup @ 2Hr 2.9 mmol/L (0.5-2.0) H* 10/04/20 22:51 Lactic Acid Fup @ 4Hr 1.8 mmol/L (0.5-2.0) 10/05/20 01:41 Calcium 9.0 mg/dL (8.4-10.2) 10/07/20 06:03 Magnesium 1.6 mg/dL (1.6-2.6) 10/04/20 18:39 Total Bilirubin 0.5 mg/dL (0.0-1.0) 10/04/20 18:39 Direct Bilirubin 0.2 mg/dL (0.0-0.5) 10/04/20 18:39 AST 35 U/L (5-31) H 10/04/20 18:39 ALT 23 U/L (0-31) 10/04/20 18:39 Alkaline Phosphatase 73 U/L (39-117) 10/04/20 18:39 Lactate Dehydrogenase 344 U/L (122-220) H 10/04/20 18:39 Troponin I High Sens 12.0 ng/L (<3.5-17.0) 10/04/20 18:39 C-Reactive Protein 4.47 mg/dL (< or = 0.50) H 10/04/20 18:39 Total Protein 7.9 g/dL (6.5-8.0) 10/04/20 18:39 Albumin 3.9 g/dL (3.5-5.0) 10/04/20 18:39 Procalcitonin 0.32 ng/mL 10/04/20 18:39 Urine Color YELLOW 10/04/20 18:39 Urine Appearance CLEAR 10/04/20 18:39 Urine pH 5.5 (5.0-8.0) 10/04/20 18:39 Ur Specific [place] 1.020 (1.005-1.025) 10/04/20 18:39 Urine Protein 2+ MG/DL (NEG-TRACE) H 10/04/20 18:39 Urine Glucose (UA) >=1000 MG/DL (NEG) H 10/04/20 18:39 Urine Ketones NEG MG/DL (NEG) 10/04/20 18:39 Urine Blood 2+ (NEG) H 10/04/20 18:39 Urine Nitrite NEG (NEG) 10/04/20 18:39 Ur Leukocyte Esterase NEG (NEG) 10/04/20 18:39 Urine RBC 15-29 /HPF (0) H 10/04/20 18:39 Urine WBC 0-2 /HPF (0-4) 10/04/20 18:39 Ur Squamous Epith Cells 3+ /LPF 10/04/20 18:39 Urine Bacteria NONE /LPF 10/04/20 18:39 Acetone, Qual Negative (Negative) 10/04/20 18:39 Respiratory Panel Drew See Note 10/05/20 00:16 Adenovirus (Rapid PCR) Not Detected (Not Detect.) 10/05/20 00:16 B.pert (TEM-PCR) Not Detected (Not Detect.) 10/05/20 00:16 B.parapertussis DNA PCR Not Detected (Not Detect.) 10/05/20 00:16 C. pneumoniae DNA (PCR) Not Detected (Not Detect.) 10/05/20 00:16 Coronavirus OC43 (PCR) Not Detected (Not Detect.) 10/05/20 00:16 Coronavirus HKU1 (PCR) Not Detected (Not Detect.) 10/05/20 00:16 Coronavirus 229E (PCR) Not Detected (Not Detect.) 10/05/20 00:16 COVID-19 ([facility]) Positive (Negative) A 10/05/20 00:53 COVID-19 Clin Com See Note 10/05/20 00:53 Coronavirus NL63 (PCR) Not Detected (Not Detect.) 10/05/20 00:16 Human Metapneumovir PCR Not Detected (Not Detect.) 10/05/20 00:16 Influenza A (RT-PCR) Not Detected (Not Detect.) 10/05/20 00:16 Influenza B (RT-PCR) Not Detected (Not Detect.) 10/05/20 00:16 M. pneumoniae (PCR) Not Detected (Not Detect.) 10/05/20 00:16 Parainfluenza 1 (PCR) Not Detected (Not Detect.) 10/05/20 00:16 Parainfluenza 2 (PCR) Not Detected (Not Detect.) 10/05/20 00:16 Parainfluenza 3 (PCR) Not Detected (Not Detect.) 10/05/20 00:16 Parainfluenza 4 (PCR) Not Detected (Not Detect.) 10/05/20 00:16 RSV (PCR) Not Detected (Not Detect.) 10/05/20 00:16 Entero/Rhino (PCR) Not Detected (Not Detect.) 11/17/20 00:16 SARS-CoV-2 RNA (RT-PCR) Detected (Not Detect.) A 10/05/20 00:16 Preliminary micro results at discharge 10/04/20 19:41 Blood Culture - Preliminary Blood - Venous No growth after 48 hours. 10/04/20 18:39 Blood Culture - Preliminary Blood - Venous No growth after 48 hours. Discharge Plan Discharge Patient Disposition: Home, Self-Care Referrals: Name,MD Royal [Primary Care Provider] - 1 Week (Tele 10/12/2020 @ 10:30am will call you to discuss your hospital stay) Discharge Medications: Continued aspirin 81 mg Tablet,Delayed Release (Dr/Ec) 81 mg PO DAILY RF: 0 (DME) pen needle, diabetic 32 gauge x 5/32 needle See Rx Instructions ea .ROUTE .MEDSUPPLY Qty: 50 RF: 0 metoprolol tartrate 25 mg tablet 25 mg PO BID RF: 0 rosuvastatin 10 mg tablet 10 mg PO BEDTIME RF: 0 losartan 100 mg tablet 100 mg PO DAILY RF: 0 gabapentin 100 mg capsule 100 mg PO BEDTIME RF: 0 omeprazole 20 mg capsule,delayed release(DR/EC) 20 mg PO DAILY RF: 0 levothyroxine 25 mcg tablet 25 mcg PO DAILY RF: 0 amlodipine 2.5 mg tablet 2.5 mg PO DAILY RF: 0 dulaglutide 0.75 mg/0.5 mL pen injector 0.75 mg subcut WE RF: 0 furosemide 40 mg tablet 40 mg PO BID RF: 0 insulin glargine 100 unit/mL (3 mL) insulin pen 15 unit subcut DAILY RF: 0 Diet: advance to usual diet Activity on Discharge: As tolerated Visit Report Forms: Patient Portal Discharge page Care Plan Goals: Patient initially probably had COVID pneumonia-was admitted and was treated with dexamethasone went home afterwards she developed shortness of breath and she came back to the hospital started back dexamethasone and subsequently improved: Sats are above 90%, discussed with ID patient's dexamethasone discontinued since patient is asymptomatic, and also dexamethasone is contributed hyperglycemia. Health Concerns: As above. Plan of Treatment: As above.
--- NOTE | 2020-10-07 15:22 | MHC.CM.PN ---
IMM 10/07/20 DC to home with the resumption of [facility] [employer] service. Family transport.
--- NOTE | 2020-10-07 17:18 | PC.NURSE ---
discharge order in and paperwork completed. call placed to phone number on file for pt's son. female answered the phone and stated that he would be back in 30 mins. this caller asked that she relay message for son to call back C regarding pt. awaiting call back from son.
[2020-10-07 17:25] LABS: Glucose, Whole Blood 189 mg/dL (60-115)
== END 2020-10-07 18:30 | disposition home or self-care (01) | DRG 871 ==
LOC: HO.ED 21:37 → HO.IMC 10-05 01:38
PROVIDERS: Physician Assistant; Admitting Provider Internal Medicine; Emergency Provider Internal Medicine; PCP Internal Medicine Geriatric Medicine; Visit Provider Internal Medicine
DX: A41.89 Other specified sepsis (principal); U07.1 COVID-19; J12.89 Other viral pneumonia; J96.01 Acute respiratory failure with hypoxia; E87.1 Hypo-osmolality and hyponatremia; N17.9 Acute kidney failure, unspecified; N18.4 Chronic kidney disease, stage 4 (severe); I12.9 Hypertensive chronic kidney disease with stage 1 through stage 4 chronic kidney disease, or unspecified chronic kidney disease; D63.1 Anemia in chronic kidney disease; E11.65 Type 2 diabetes mellitus with hyperglycemia; E11.42 Type 2 diabetes mellitus with diabetic polyneuropathy; E11.22 Type 2 diabetes mellitus with diabetic chronic kidney disease; E78.5 Hyperlipidemia, unspecified; E03.9 Hypothyroidism, unspecified; Z79.4 Long term (current) use of insulin; Z79.82 Long term (current) use of aspirin; Z79.899 Other long term (current) drug therapy
CPT/HCPCS: 36415; 71045; 78580; 80048; 80076; 81001; 82009; 82947; 83605; 83615; 83735; 84145; 84484; 85025; 85379; 86140; 87040; 87633; 87635; 93005; 93970; 96360; 96361; 99225; 99285; A9540; J1100; J2920

== ENCOUNTER 2020-11-22 09:10 | Outpatient (REF) | payer MEDICARE, MEDICAID, SELFPAY ==
[2020-11-23 09:37] LABS: BV Int Neg Control Negative (Negative); BV Int Pos Control Positive (Positive)
== END 2020-11-22 09:11 | disposition home or self-care (01) ==
LOC: HO.LAB 09:10
PROVIDERS: PCP Internal Medicine Geriatric Medicine; Visit Provider Obstetrics & Gynecology
DX: Z01.419 Encounter for gynecological examination (general) (routine) without abnormal findings (principal); L29.2 Pruritus vulvae
CPT/HCPCS: 87480; 87510; 87660

== ENCOUNTER 2020-11-24 11:51 | Outpatient (REF) | payer MEDICARE, MEDICAID, SELFPAY ==
--- NOTE | 2020-11-24 11:55 | MM_ITS ---
EXAMINATION: MM SCREENING DIGITAL BREAST TOMOSYNTHESIS, LEFT CLINICAL INFORMATION: Screening. Asymptomatic. Status post right mastectomy. COMPARISON: Mammography: March 04, 2019 and studies dating back to March 16, 2017 TECHNIQUE: Digital breast tomosynthesis is performed in both the craniocaudal and mediolateral oblique views along with computer-aided detection (CAD). Synthesized 2D images are generated from the tomosynthesis. FINDINGS: The breasts are almost entirely fatty (ACR BI-RADS breast composition Category a). There are no significant masses, abnormal calcifications, or other abnormalities. MM/MM tomosynthesis screening LT IMPRESSION: There are no significant changes from prior study. ASSESSMENT: BI-RADS 1: Negative RECOMMENDATION: Routine annual mammography screening. This patient's information was entered into a reminder system with a target due date for their next mammogram.
== END 2020-11-24 11:52 | disposition home or self-care (01) ==
LOC: HO.MAMMO 11:51
PROVIDERS: PCP Internal Medicine Geriatric Medicine; Visit Provider Obstetrics & Gynecology
DX: Z12.31 Encounter for screening mammogram for malignant neoplasm of breast (principal)
CPT/HCPCS: 77067

== ENCOUNTER → 2021-10-25 14:28 | Outpatient (BNVA) | payer MEDICARE, MEDICAID, SELFPAY | PROVIDERS: PCP Internal Medicine Geriatric Medicine; Visit Provider Surgery Vascular Surgery | DX: I83.12 Varicose veins of left lower extremity with inflammation (principal) | CPT/HCPCS: 99202 ==

== ENCOUNTER 2021-11-15 12:37 | Outpatient (REF) | payer MEDICARE, MEDICAID, SELFPAY ==
--- NOTE | ~2021-11-15 | US_ITS ---
EXAMINATION: US VENOUS BILATERAL LOWER EXTREMITIES (REFLUX EXAM) CLINICAL INDICATION: Leg pain and varicose veins. COMPARISON: None TECHNIQUE: Color-flow triplex imaging and compression Doppler was performed to evaluate both the deep and the superficial systems bilaterally. To evaluate the superficial system, the examination was performed in the upright position. Color-flow Doppler ultrasound and compression ultrasound were utilized. In addition, maneuvers were utilized to demonstrate reflux. FINDINGS: 1. DEEP VENOUS ULTRASOUND OF THE RIGHT LOWER EXTREMITY: Respiratory variation, normal compression and augmented flow are noted in the right common femoral vein as well as the right popliteal vein, and there is no evidence of deep venous thrombosis at these locations. There is no evidence of reflux in the deep system in either the common femoral vein or the popliteal vein. There is no evidence of a Tamayo's cyst. 2. SUPERFICIAL ULTRASOUND WITH DOPPLER OF RIGHT LOWER EXTREMITY: The right great saphenous vein at the saphenofemoral junction measures 9 mm, at the proximal thigh 6 mm, at the mid thigh 4 mm, [id number] 4 mm, at the knee 4 mm, [id number] 4 mm, mid calf 3 mm and at the ankle measures 3 mm. Segmental reflux just below the knee of 1 second is noted. Duplicated Right Great Saphenous Vein: 3 mm lateral accessory saphenous present that does not reflux. The right small saphenous vein measures 2 mm and shows no reflux. Accessory Vein of Giacomini: None. Incompetent Perforators: None. Varices Present: Yes. Varices are present in the proximal thigh, mid thigh, knee, and calf measuring up to 4 mm in size. The varices in the calf reflux for greater than 3 seconds. 3. DEEP VENOUS ULTRASOUND OF THE LEFT LOWER EXTREMITY: Respiratory variation, normal compression and augmented flow are noted in the left common femoral vein as well as the left popliteal vein, and there is no evidence of deep venous thrombosis at these locations. There is no evidence of reflux in the deep system in either the common femoral vein or the popliteal vein. There is no evidence of a Tamayo's cyst. 4. SUPERFICIAL ULTRASOUND WITH DOPPLER OF LEFT LOWER EXTREMITY: Left great saphenous vein at the saphenofemoral junction measures 6 mm, at the proximal thigh 5 mm, at the mid thigh 4 mm, [id number]-ctc-[id number] 4 mm, at the knee 3 mm, [id number]-ibl-hilr 3 mm, mid calf 4 mm and at the ankle measures 4 mm. Reflux is present in the great saphenous vein from [id number] down to the ankle with reflux times of 3.4 seconds. Duplicated Left Great Saphenous Vein: A lateral accessory saphenous is present measuring 5 mm in size without reflux. The left small saphenous vein measures 3 mm and shows no reflux. Accessory Vein of Giacomini: None. Incompetent Perforators: There is a proximal calf credit manager measuring 2 mm in size with 2.4 seconds of reflux. Varices Present: Varices are present in the thigh, knee and mid calf measuring up to 4 mm in size but without reflux. US/US venous duplex LE BI IMPRESSION: 1. No evidence of reflux or thrombus in the common femoral veins or popliteal veins bilaterally. 2. 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 A single incompetent left calf credit manager.
== END 2021-11-15 12:38 | disposition home or self-care (01) ==
LOC: HO.US 12:37
PROVIDERS: Visit Provider Surgery Vascular Surgery
DX: I83.12 Varicose veins of left lower extremity with inflammation (principal)
CPT/HCPCS: 93970

== ENCOUNTER → 2021-11-24 13:11 | Outpatient (BNVA) | payer MEDICARE, MEDICAID, SELFPAY | PROVIDERS: PCP Internal Medicine Geriatric Medicine; Visit Provider Surgery Vascular Surgery | DX: I83.12 Varicose veins of left lower extremity with inflammation (principal) | CPT/HCPCS: 99212 ==

== ENCOUNTER → 2021-12-30 12:26 | Outpatient (BNVA) | payer MEDICARE, MEDICAID, SELFPAY | PROVIDERS: PCP Internal Medicine Geriatric Medicine; Visit Provider Surgery Vascular Surgery | DX: I83.12 Varicose veins of left lower extremity with inflammation (principal) | CPT/HCPCS: 36482 ==

== ENCOUNTER 2022-01-02 14:52 | Outpatient (REF) | payer MEDICARE, MEDICAID, SELFPAY ==
--- NOTE | ~2022-01-02 | US_ITS ---
EXAMINATION: US VENOUS ULTRASOUND WITH DOPPLER LOWER EXTREMITY, LEFT CLINICAL INFORMATION: Pain . Post vena seal procedure to 12/30/2021 COMPARISON: Previous exam October 2021 TECHNIQUE: Ultrasound of the deep veins is performed from the hip to the calf with compression sonography and color and pulse Doppler assessment. Spectral analysis with color-flow imaging is performed. FINDINGS: There is normal venous compression and respiratory variation and augmented flow. The visualized common femoral vein, superficial femoral vein, profunda femoral vein, popliteal vein, and the trifurcation region shows no evidence of deep venous thrombosis. There is echogenic material in the left greater saphenous vein post vena seal procedure. This is 1.7 cm from the saphenofemoral junction. The left greater saphenous vein appears closed. US/US venous duplex LE LT IMPRESSION: No DVT demonstrated in the left lower extremity.
== END 2022-01-02 14:53 | disposition home or self-care (01) ==
LOC: HO.US 14:52
PROVIDERS: Visit Provider Surgery Vascular Surgery
DX: M79.605 Pain in left leg (principal)
CPT/HCPCS: 93971

== ENCOUNTER 2022-01-17 10:31 | Outpatient (REF) | payer MEDICARE, MEDICAID, SELFPAY ==
[2022-01-18 09:27] LABS: BV Int Neg Control Negative (Negative); BV Int Pos Control Positive (Positive)
== END 2022-01-17 10:32 | disposition home or self-care (01) ==
LOC: HO.LAB 10:31
PROVIDERS: PCP Internal Medicine Geriatric Medicine; Visit Provider Obstetrics & Gynecology
DX: Z01.411 Encounter for gynecological examination (general) (routine) with abnormal findings (principal); L29.2 Pruritus vulvae; R10.2 Pelvic and perineal pain
CPT/HCPCS: 87480; 87510; 87660; 99212

== ENCOUNTER 2022-02-09 12:51 | Outpatient (REF) | payer MEDICARE, MEDICAID, SELFPAY ==
--- NOTE | ~2022-02-09 | US_ITS ---
EXAMINATION: US PELVIS CLINICAL INFORMATION: Pelvic and perineal pain. COMPARISON: None TECHNIQUE: Ultrasound of the pelvis is performed using both transabdominal and transvaginal transducers along with Doppler. Patient refused transvaginal ultrasound. FINDINGS: UTERUS: The uterus is anteverted, anteflexed and measures 6.3 with 3.3 x 3.8 cm. The double wall endometrium is not visualized. The uterus is not optimally visualized due to lack of transvaginal imaging. ADNEXA: Both ovaries are not visualized. No free fluid seen in the cul-de-sac. US/US pelvic complete IMPRESSION: 1. Limited exam as patient refused transvaginal ultrasound. 2. The uterus is visualized however, the detail was not optimally visualized. 3. Ovaries are not seen.
== END 2022-02-09 12:52 | disposition home or self-care (01) ==
LOC: HO.US 12:51
PROVIDERS: Visit Provider Obstetrics & Gynecology
DX: R10.2 Pelvic and perineal pain (principal)
CPT/HCPCS: 76856

== ENCOUNTER → 2022-03-02 11:35 | Outpatient (BNVA) | payer MEDICARE, MEDICAID, SELFPAY | PROVIDERS: PCP Internal Medicine Geriatric Medicine; Visit Provider Surgery Vascular Surgery | DX: I83.11 Varicose veins of right lower extremity with inflammation (principal) | CPT/HCPCS: 99212 ==

== ENCOUNTER 2022-03-07 12:39 | Outpatient (REF) | payer MEDICARE, MEDICAID, SELFPAY ==
--- NOTE | ~2022-03-07 | MM_ITS ---
EXAMINATION: MM SCREENING DIGITAL BREAST TOMOSYNTHESIS, LEFT CLINICAL INFORMATION: Screening. Asymptomatic. Prior right mastectomy. Due for yearly. COMPARISON: Mammography: 11/24/2020, 03/04/2019, 02/20/2018 TECHNIQUE: Digital breast tomosynthesis is performed in both the craniocaudal and mediolateral oblique views along with computer-aided detection (CAD). Synthesized 2D images are generated from the tomosynthesis. FINDINGS: There are scattered areas of fibroglandular density (ACR BI-RADS breast composition Category b). There are no significant masses, abnormal calcifications, or other abnormalities. There are scattered ductal secretory, round, vascular, and dermal calcifications again noted. The axilla and skin contours are unremarkable. No significant changes. MM/MM tomosynthesis screening LT IMPRESSION: No mammographic evidence of malignancy. ASSESSMENT: BI-RADS 2: Benign RECOMMENDATION: Routine annual mammography screening. This patient's information was entered into a reminder system with a target due date for their next mammogram.
== END 2022-03-07 12:40 | disposition home or self-care (01) ==
LOC: HO.MAMMO 12:39
PROVIDERS: Visit Provider Obstetrics & Gynecology
DX: Z12.31 Encounter for screening mammogram for malignant neoplasm of breast (principal)
CPT/HCPCS: 77063; 77067

== ENCOUNTER → 2022-03-16 11:14 | Outpatient (BNVA) | payer MEDICARE, MEDICAID, SELFPAY | PROVIDERS: Visit Provider Obstetrics & Gynecology | DX: R10.2 Pelvic and perineal pain (principal) | CPT/HCPCS: 99212 ==

== ENCOUNTER → 2022-03-17 10:27 | Outpatient (BNVA) | payer MEDICARE, MEDICAID, SELFPAY | PROVIDERS: PCP Internal Medicine Geriatric Medicine; Visit Provider Surgery Vascular Surgery | DX: I83.11 Varicose veins of right lower extremity with inflammation (principal) | CPT/HCPCS: 36482; 99212 ==

== ENCOUNTER 2022-03-20 15:54 | Outpatient (REF) | payer MEDICARE, MEDICAID, SELFPAY ==
--- NOTE | ~2022-03-20 | US_ITS ---
EXAMINATION: US VENOUS ULTRASOUND WITH DOPPLER LOWER EXTREMITY, RIGHT CLINICAL INFORMATION: Post vena seal procedure March 17 2022 COMPARISON: Previous exam December 2021 TECHNIQUE: Ultrasound of the deep veins is performed from the hip to the calf with compression sonography and color and pulse Doppler assessment. Spectral analysis with color-flow imaging is performed. FINDINGS: There is normal venous compression and respiratory variation and augmented flow. The visualized common femoral vein, superficial femoral vein, profunda femoral vein, popliteal vein, and the trifurcation region shows no evidence of deep venous thrombosis. There is echogenic material in the right greater saphenous vein post vena seal procedure. This is 2.8 cm from the saphenofemoral junction. The right greater saphenous vein appears closed. There is no significant popliteal fossa cyst. US/US venous duplex LE RT IMPRESSION: No DVT demonstrated in the right lower extremity.
== END 2022-03-20 15:55 | disposition home or self-care (01) ==
LOC: HO.US 15:54
PROVIDERS: Visit Provider Surgery Vascular Surgery
DX: M79.604 Pain in right leg (principal)
CPT/HCPCS: 93971

== ENCOUNTER → 2022-03-30 08:51 | Outpatient (BNVA) | payer MEDICARE, MEDICAID, SELFPAY | PROVIDERS: PCP Internal Medicine Geriatric Medicine; Visit Provider Surgery Vascular Surgery | DX: I83.11 Varicose veins of right lower extremity with inflammation (principal) | CPT/HCPCS: 99212 ==

== ENCOUNTER 2022-08-15 10:26 | Outpatient (REF) | payer MEDICARE, MEDICAID, SELFPAY ==
--- NOTE | ~2022-08-15 | MM_ITS ---
EXAMINATION: BONE DENSITOMETRY CLINICAL INDICATION: Encounter for screening for osteoporosis. COMPARISON: Previous BD dated 08/13/2020 and baseline BD dated 08/13/2018. TECHNIQUE: Using a [employer] DXA System (software version: 13.1) manufactured by [employer], dual-energy x-ray absorptiometry was performed of the lumbar spine and left hip. The images are of good technical quality. Summary results are attached. FINDINGS: AP SPINE L1-L4: Current: BMD 1.237 g/cm2, Z-score 1.1, T-score 0.5, normal, 5.7% increase from previous, 4.9% increase from baseline (<5% change is not significant). Prior: BMD 1.170 g/cm2. Baseline: BMD 1.179 g/cm2. LEFT FEMUR, NECK: Current: BMD 0.648 g/cm2, Z-score -1.6, T-score -2.8, osteoporosis. Prior: BMD 0.830 g/cm2. Baseline: BMD 0.836 g/cm2. LEFT FEMUR, TOTAL: Current: BMD 0.748 g/cm2, Z-score -1.1, T-score -2.1, osteopenia, 22.9% decrease from previous, 22.9% decrease from baseline (<5% change is not significant). Prior: BMD 0.970 g/cm2. Baseline: BMD 0.970 g/cm2. IDENTIFIED RISK FACTORS: Rheumatoid arthritis, secondary osteoporosis, menopause. HISTORY OF FRACTURE: None listed. MEDICATIONS: Vitamin D. MM/XR DEXA axial skeleton IMPRESSION: 1. DIAGNOSIS: Osteoporosis based on the lowest T-score value of -2.8 in the femoral neck applying World Health Organization criteria. 2. 10-YEAR FRACTURE RISK PREDICTION, FRAX: According to the guidelines, FRAX calculation should only be performed on patients in the osteopenia bone density category. Therefore, FRAX was not performed on this patient. 3. Treatment Recommendations: NOF guidelines recommend consideration for treatment in postmenopausal women and men age 50 and older presenting with the following: -A hip or vertebral (clinical or morphometric) fracture. -T-score less than or equal to -2.5 at the femoral neck or spine after appropriate evaluation to exclude secondary causes. -Low bone mass at the hip or spine and a 10-year fracture probability by FRAX of greater than or equal to 3% for hip fracture or greater than or equal to 20% for major osteoporotic fracture based on the [place] adapted WHO algorithm. 4. Other Recommendations: All treatment decisions require clinical judgment and consideration of individual patient factors, including patient preferences, comorbidities, previous drug use, risk factors not captured in the FRAX model (e.g. frailty, falls, vitamin D deficiency, increased bone turnover, interval significant decline in bone density) and possible under or overestimation of fracture risk by FRAX. Additional medical evaluation for secondary cause of low bone mineral density may be appropriate. FUTURE SCAN RECOMMENDATION: People with diagnosed cases of osteoporosis or at high risk for fracture should have regular bone mineral density tests. For patients eligible for Medicare, routine testing is allowed once every 2 years. The testing frequency can be increased to one year for patients who have rapidly progressing disease, those who are receiving or discontinuing medical therapy to restore bone mass, or have additional risk factors.
== END 2022-08-15 10:27 | disposition home or self-care (01) ==
LOC: HO.MAMMO 10:26
PROVIDERS: PCP Internal Medicine Geriatric Medicine; Visit Provider Obstetrics & Gynecology
DX: Z13.820 Encounter for screening for osteoporosis (principal); Z78.0 Asymptomatic menopausal state
CPT/HCPCS: 77080

== ENCOUNTER → 2022-09-13 09:37 | Outpatient (BNVA) | payer MEDICARE, MEDICAID, SELFPAY | PROVIDERS: PCP Internal Medicine Geriatric Medicine; Visit Provider Obstetrics & Gynecology | DX: M81.0 Age-related osteoporosis without current pathological fracture (principal) | CPT/HCPCS: 99212 ==

== ENCOUNTER 2022-12-12 11:48 | Outpatient (REF) | payer MEDICARE, MEDICAID, SELFPAY | END 2022-12-12 11:49 | disposition home or self-care (01) | LOC: HO.HOSX 11:48 | PROVIDERS: Visit Provider Physician Assistant | DX: Z13.89 Encounter for screening for other disorder (principal) ==

== ENCOUNTER 2023-01-03 16:54 | Outpatient (REF) | payer MEDICARE, MEDICAID, SELFPAY ==
--- NOTE | ~2023-01-03 | XR_ITS ---
EXAMINATION: XR KNEES XR KNEE, RIGHT CLINICAL INFORMATION: Right knee pain. COMPARISON: None TECHNIQUE: AP bilateral knees one view. Right knee 2 views. FINDINGS: Right knee: Severe patellofemoral joint space loss, osteophytes, sclerosis and cysts. Medial and lateral compartment joint space narrowing and marginal osteophytes. No acute fracture or dislocation is seen. Small effusion. Extensive vascular calcification. Left knee: Medial and lateral compartment joint space narrowing or marginal osteophytes. Vascular calcification. No acute findings seen on the single frontal radiograph. XR/XR knee LT 2V IMPRESSION: Right knee: Tricompartment osteoarthritis. Severe patellofemoral arthritis. Small effusion. Left knee: Medial and lateral compartment osteoarthritis.
--- NOTE | ~2023-01-03 | XR_ITS ---
EXAMINATION: XR KNEES XR KNEE, RIGHT CLINICAL INFORMATION: Right knee pain. COMPARISON: None TECHNIQUE: AP bilateral knees one view. Right knee 2 views. FINDINGS: Right knee: Severe patellofemoral joint space loss, osteophytes, sclerosis and cysts. Medial and lateral compartment joint space narrowing and marginal osteophytes. No acute fracture or dislocation is seen. Small effusion. Extensive vascular calcification. Left knee: Medial and lateral compartment joint space narrowing or marginal osteophytes. Vascular calcification. No acute findings seen on the single frontal radiograph. XR/XR knee standing BI IMPRESSION: Right knee: Tricompartment osteoarthritis. Severe patellofemoral arthritis. Small effusion. Left knee: Medial and lateral compartment osteoarthritis.
== END 2023-01-03 16:55 | disposition home or self-care (01) ==
LOC: HO.HOSX 16:54
PROVIDERS: Visit Provider Physician Assistant
DX: M17.12 Unilateral primary osteoarthritis, left knee (principal)
CPT/HCPCS: 73560; 73565; 99202

== ENCOUNTER 2023-07-25 10:36 | Outpatient (AMB) | payer MEDICARE, MEDICAID, SELFPAY ==
[2023-07-25 10:39] VITALS: BP 152/70; BMI 41.2
--- NOTE | 2023-07-25 10:39 | A.OFFVIS_ITS ---
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 No complaints. Last Pap/HPV was many years ago, no history of abnormal Pap smears over the last 25 years Last Mammogram was BI-RADS 2 in 03/10 Last Colonoscopy was in 10/07 the recommendation was to repeat in 5 years according the patient Last DEXA scan was in 08/10 which showed osteoporosis and the patient has been on alendronate 70 mg p.o. 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 Housing: Apartment Do you presently have visiting nurse or other home services: Yes Alcohol intake: never service: No Current occupational status: disabled Sexual orientation: Straight/Heterosexual Gender identity: Female Female Reproductive History Menstrual Age of Menarche: 14 control method: permanent sterilization Total pregnancies: 6 Full term: 6 Number of Living Children: 5 Date of Mammogram: 03/07/22 Date of last Bone Density Screenin08/15/22 Review of Systems Const All systems reviewed & are unremarkable except as noted in HPI and below Card Reports as per HPI Resp Reports as per HPI GI Reports as per HPI and Reports no additional complaints Reports as per HPI Physical Exam Vital Signs: Last Vital Signs BP 152/70 H 07/25/23 10:39 BMI result Body Mass Index 41.2 Const General: cooperative, healthy appearing and comfortable Chest Chest palpation & inspection: normal inspection of the chest and normal pal pation of entire chest wall Breast/axilla inspection: normal inspection of the breasts and normal inspection of the axillae Breast/axilla palpation: normal palpation of the breasts, normal palpation of the axillae and no axillary lymphadenopathy Resp Effort & Inspection: normal respiratory effort Auscultation: clear to auscultation bilaterally Percussion: percussion normal Cardio Palpation: normal PMI Rate: regular rate Rhythm: regular rhythm Heart sounds: no murmurs and no rubs Peripheral pulses: Peripheral pulses 2+ throughout GI Inspection: Yes normal to inspection Palpation (GI): Soft to palpation, nontender, no guarding, not rigid and No hepatosplenomegaly present Percussion: Yes normal to percussion Auscultation: normal bowel sounds Rectal Exam - Female: deferred General: Yes bladder normal to palpation External Female Exam: No lesion Speculum Exam - Vagina: normal appearance of the vagina, normal palpation, normal vaginal discharge and not erythematous Speculum Exam - Cervix: normal appearance of the cervix and normal palpation Bimanual exam- vagina & uterus: normal bimanual exam, normal palpation, uterine size normal, bladder normal to palpation, consistency normal and normal palpation Bimanual Exam- Adnexa, other: normal adnexae, no masses and no tenderness Assessment & Plan Assessment & Plan (1) Well woman exam: Code(s): Z01.419 - Encounter for gynecological examination (general) (routine) without abnormal findings Plan: Co testing not indicated since the patient 's age is above 65 with no history of abnormal Pap smears last 25 years. Counseled the patient about the recommended dietary allowance of 1200 mg of Calcium & 800 IU of vitamin D. Mammogram ordered , the patient is up-to-date with her screening colonoscopy. Up-to-date with DEXA scan . The patient was instructed to perform monthly self-breast exams and to schedule an annual exam in a year; all questions answered and the patient verbalized understanding. Orders: Orders MM screening mammo BI Today Z12.31 - Encounter for screening mammogram for malignant neoplasm of breast Coding Level of Care Code Est Pt Prev Care >65y(11290) Diagnoses Well woman exam Z01.419
== END 2023-07-25 11:04 | disposition home or self-care (01) ==
PROVIDERS: PCP Internal Medicine Geriatric Medicine; Visit Provider Obstetrics & Gynecology
DX: Z01.419 Encounter for gynecological examination (general) (routine) without abnormal findings (principal)
CPT/HCPCS: G0101

== ENCOUNTER → 2023-07-25 10:36 | Outpatient (BNVA) | payer MEDICARE, MEDICAID, SELFPAY | PROVIDERS: PCP Internal Medicine Geriatric Medicine; Visit Provider Obstetrics & Gynecology | DX: Z01.419 Encounter for gynecological examination (general) (routine) without abnormal findings (principal) | CPT/HCPCS: G0101 ==

== ENCOUNTER → 2023-08-22 11:45 | Outpatient (BNV) | payer MEDICARE, MEDICAID, SELFPAY | PROVIDERS: PCP Internal Medicine Geriatric Medicine; Visit Provider Radiology Diagnostic Radiology | DX: Z12.31 Encounter for screening mammogram for malignant neoplasm of breast (principal) | CPT/HCPCS: 77063; 77067 ==

== ENCOUNTER 2023-08-22 11:53 | Outpatient (REF) | payer MEDICARE, MEDICAID, SELFPAY ==
--- NOTE | ~2023-08-22 | MM_ITS ---
EXAMINATION: MM SCREENING DIGITAL BREAST TOMOSYNTHESIS, BILATERAL CLINICAL INFORMATION: Screening. Asymptomatic. The patient is status post right mastectomy. COMPARISON: Mammography: This study is compared with prior exams dating back to TECHNIQUE: Digital breast tomosynthesis is performed in both the craniocaudal and mediolateral oblique views along with computer-aided detection (CAD). Synthesized 2D images are generated from the tomosynthesis. FINDINGS: There are scattered areas of fibroglandular density (ACR BI-RADS breast composition Category b). There are no significant masses, abnormal calcifications, or other abnormalities. Scattered, benign calcifications are present. MM/MM tomosynthesis screening LT IMPRESSION: No mammographic evidence of malignancy. ASSESSMENT: BI-RADS BI-RADS 2 - Benign Findings RECOMMENDATION: Routine annual mammography screening. 1 year F/U This examination should not preclude the clinical evaluation of a suspicious palpable abnormality. This patient's information was entered into a reminder system with a target due date for their next mammogram.
== END 2023-08-22 11:54 | disposition home or self-care (01) ==
LOC: HO.MAMMO 11:53
PROVIDERS: PCP Internal Medicine Geriatric Medicine; Visit Provider Obstetrics & Gynecology
DX: Z12.31 Encounter for screening mammogram for malignant neoplasm of breast (principal)
CPT/HCPCS: 77063; 77067

== ENCOUNTER 2023-11-30 09:19 | Outpatient (REF) | payer MEDICARE, MEDICAID, SELFPAY ==
[2023-11-30 12:49] LABS: Folate 12.7 ng/mL (> or = 4.0); Vitamin B12 449 pg/mL (200-900)
== END 2023-11-30 09:20 | disposition home or self-care (01) ==
LOC: HO.HHCL 09:19
PROVIDERS: Visit Provider Internal Medicine Geriatric Medicine
DX: D75.89 Other specified diseases of blood and blood-forming organs (principal)
CPT/HCPCS: 36415; 82607; 82746

== ENCOUNTER 2024-02-27 11:46 | Outpatient (REF) | payer MEDICARE, MEDICAID, SELFPAY ==
--- NOTE | ~2024-02-27 | XR_ITS ---
EXAMINATION: XR CHEST CLINICAL INFORMATION: Productive cough and wheezing. COMPARISON: Chest x-ray 10/04/2020. Chest CT 06/10/2018. TECHNIQUE: 2 views of the chest were obtained. FINDINGS: The lungs are mildly hypoexpanded. No consolidation or effusion to suggest pneumonia. There is a new 7 mm nodular opacity in the right upper chest. This is not seen on prior chest CT. The cardiomediastinal silhouette is stable. No pulmonary edema. Degenerative changes in the spine. XR/XR chest 2V IMPRESSION: No focal pneumonia. New 7 mm nodular opacity right upper chest. Recommend further evaluation with noncontrast chest CT.
== END 2024-02-27 11:47 | disposition home or self-care (01) ==
LOC: HO.HHCX 11:46
PROVIDERS: Visit Provider Emergency Medicine
DX: R05.1 Acute cough (principal)
CPT/HCPCS: 71046

== ENCOUNTER 2024-04-30 08:32 | Outpatient (REF) | payer MEDICARE, MEDICAID, SELFPAY ==
--- NOTE | ~2024-04-30 | CT_ITS ---
EXAMINATION: CT CHEST WITHOUT CONTRAST CLINICAL INFORMATION: Abnormal findings on chest x-ray 02/27/2024; 7 mm nodular opacity right upper chest, rule out nodule. COMPARISON: CT chest no contrast 06/10/2018. Chest x-ray 10/04/2020. TECHNIQUE: Multidetector volumetric CT imaging of the chest was done. Axial MIP volume rendering provided. Sagittal and coronal reformatted images were obtained. This CT examination was performed using dose optimization techniques as appropriate, variously including the following: *Automated exposure control *Adjustment of mA and/or kV according to patient size (this includes techniques or standardized protocols for targeted exams where dose is matched to indication/reason for exam; i.e. 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 Mild subpleural scarring in the right apex and right midlung. Lungs otherwise clear. Aorta appears tortuous. See below. LUNGS: -There is stable pleural/parenchymal scarring in the lateral right apex. -There is mild subpleural scarring with minimal volume loss involving the anterolateral bilateral upper lobes, and also involving the right middle lobe, lingula, and bilateral lower lobes mid to superior regions. Findings are concerning for developing subpleural fibrosis. These findings are new from the prior CT examination. -There is a 4 cm calcified granuloma in the anterior right upper lobe (series 5, image 26). This is unchanged. -There is mild scarring in the anterior segment right upper lobe, unchanged. -There is mild subpleural scarring with associated bronchiectasis in the lateral segment of the right middle lobe with mild volume loss, unchanged. -There are no suspicious nodules. -There are no new consolidations or groundglass opacities. -No significant bronchial wall thickening or additional foci of bronchiectasis. MEDIASTINUM: -Normal thyroid gland. -Mild to moderate calcification of the great vessels. -Aorta is mildly uncoiled, moderately calcified, and tortuous. There is no aortic aneurysm. -Main pulmonary artery is quite prominent at 3.7 cm, which is upper limits of normal/early dilation. -There is no mediastinal or hilar lymphadenopathy detected. -Stable collateral vein in the right aspect of the anterior mediastinal fat. -No esophageal abnormality. -Heart size is normal. There is extensive calcification of the mitral annulus. -There is no pericardial effusion. CORONARY ARTERY CALCIFICATION: There is heavy calcification of the coronary arteries. PLEURA: There is no pleural effusion. No pleural mass or thickening. AXILLA/CHEST WALL: No lymphadenopathy. There has been a right mastectomy. Suspect prior radiation to the mastectomy site. UPPER ABDOMEN: Calcified granulomas noted in segment 4A. Liver otherwise normal. Moderate to heavy calcification of the aorta and visualized arteries. -There is a 2 cm simple cyst in the anterior left kidney. There is mild bilateral perirenal stranding. OSSEOUS STRUCTURES: -Severe arthritis in the right sternoclavicular joint is present with a dislocated clavicular head. This appears chronic. Stable lucency in the superior manubrium on the left is consistent with a benign degenerative geode. -Mild to moderate degenerative arthritis of the imaged spine with mild dextroconvex thoracic scoliosis. -No suspicious lytic or blastic bone lesions seen. CT/CT chest wo IV con IMPRESSION: 1. No suspicious pulmonary nodule present. Suspect the finding on chest x-ray was related to underlying granuloma or resolved abnormality. A few scattered granulomata are present. 2. There has been development of mild subpleural reticular opacities in the bilateral upper lobes, right middle lobe, lingular segment, and upper aspects of the bilateral lower lobes. These were not present previously, and are indeterminate at this time. Differential diagnosis is extensive although favored is early developing interstitial disease/fibrotic lung disease related to underlying collagen vascular disease (upper lung predominant findings argue against UIP or NSIP). Consider follow-up CT examination in 6 months to assess for progression. 3. 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 4. Stable pleural parenchymal consolidative opacity in the right apex, most likely parenchymal scarring given stability. 5. Stable severe arthritis right sternoclavicular joint with superior subluxation and remodeling of the right clavicular head. Stable lucency in the superior left manubrium is consistent with a degenerative geode. There are no suspicious bone lesions. 6. See the body the report for additional ancillary findings. Fleischner guidelines were followed.
== END 2024-04-30 08:33 | disposition home or self-care (01) ==
LOC: HO.CT 08:32
PROVIDERS: PCP Internal Medicine Geriatric Medicine; Visit Provider Emergency Medicine
DX: R93.89 Abnormal findings on diagnostic imaging of other specified body structures (principal)
CPT/HCPCS: 71250

== ENCOUNTER → 2024-04-30 08:35 | Outpatient (BNV) | payer MEDICARE, MEDICAID, SELFPAY | PROVIDERS: PCP Internal Medicine Geriatric Medicine; Visit Provider Radiology Diagnostic Radiology | DX: R91.8 Other nonspecific abnormal finding of lung field (principal) | CPT/HCPCS: 71250 ==

== ENCOUNTER 2024-05-15 09:03 | Outpatient (REF) | payer MEDICARE, MEDICAID, SELFPAY ==
[2024-05-15 12:02] LABS: Alanine Aminotransferase 14 U/L (0-31); Albumin Level 4.1 g/dL (3.5-5.0); Alkaline Phosphatase 73 U/L (39-117); Anion Gap 13 (12-20); Aspartate Amino Transferase 19 U/L (5-31); Bilirubin Total 0.3 mg/dL (0.0-1.0); Blood Urea Nitrogen 61 mg/dL (9-16); Calcium 10.5 mg/dL (8.4-10.2); Carbon Dioxide 29 mmol/L (22-29); Chloride 103 mmol/L (96-108); Cholesterol 122 mg/dL (<200); Estimated Glomerular Filt Rate 15; Glucose Random 241 mg/dL (60-115); HDL Cholesterol 40 mg/dL (>40); LDL Cholesterol Calculated 48 mg/dL (<100); Potassium 4.5 mmol/L (3.3-5.1); Sodium 140 mmol/L (135-145); Total Protein 7.8 g/dL (6.5-8.0); Triglycerides 170 mg/dL (<150)
[2024-05-15 12:27] LABS: Creatinine Urine 63.21 mg/dL; Microalbum/Creatinine Ratio Ur 362.2 ug/mg cr (<30)
== END 2024-05-15 09:04 | disposition home or self-care (01) ==
LOC: HO.HHCL 09:03
PROVIDERS: Visit Provider Internal Medicine Geriatric Medicine
DX: J01.00 Acute maxillary sinusitis, unspecified (principal); E11.22 Type 2 diabetes mellitus with diabetic chronic kidney disease; N18.4 Chronic kidney disease, stage 4 (severe); Z79.4 Long term (current) use of insulin
CPT/HCPCS: 36415; 80053; 80061; 82043; 82570

== ENCOUNTER 2024-06-23 14:40 | Outpatient (AMB) | payer MEDICARE, MEDICAID, SELFPAY ==
--- NOTE | 2024-06-23 14:41 | MHC.OFFVIS ---
Vital Signs 06/23/24 14:43 Height 5 ft 4 in Weight 242 lb 8.136 oz BMI 41.6 BP 136/74 Blood Pressure Location Lt brachial Position Sitting Pulse 73 Pulse Source Pulse Oximeter Pulse Oximetry (%) 97 Oxygen Delivery Method Room Air Intake Visit Reasons: cough, WALTER and abnormal CT Engineering Recruiter Required: Yes Engineering Recruiter Language: Hospice Manager Name: [id number] Fanny Allergies No Known Allergies [No Known Allergies*] Allergy (Verified 06/23/24 14:49) HPI HPI cough, WALTER and abnormal CT: Details: Luz Elena is pleasant 79 year old female, former minimal smoker, with underlying h/o right breast cancer s/p chemo, radiation and mastectomy in 1998, CKD IV, DMII and HTN. She is accompanied by her son-in-law. She was referred for pulmonary evaluation after abnormal CT, report below. She reports ongoing dry cough for many years with associated dyspnea on exertion and orthopnea. She was prescribed albuterol MDI but reports suboptimal effect. She denies h/o asthma. She denies seasonal allergies. She denies any occupational exposures. She denies any pertinent family history. She was previously under the care of cardiology and placed on lasix 40 mg BID, however no reports available. She states prior nutrition consultant was through [facility] however no records reflect this. Unsure of last echo. She notes orthopnea, PND and BLE edema. [facility] Medical History Arthritis CKD (chronic kidney disease), stage IV COVID-19 History of right breast cancer HTN (hypertension) Hyperlipemia Hyponatremia Hypothyroidism Peripheral neuropathy Sepsis Type 2 diabetes mellitus Surgical History H/O eye surgery H/O right mastectomy History of hysteroscopy History of tubal ligation Social History (Updated 06/23/24 @ 14:48 by Sophia Lynch CMA) Household Members: Family Household Members Other:: son in law is her ROLL WEIGHER Housing: Apartment Do you presently have visiting nurse or other home services: Yes Alcohol intake: never Patient Tobacco Use Status: Former Tobacco user Years Smoked: quit 6 years ago service: No Current occupational status: disabled Sexual orientation: Straight/Heterosexual Gender identity: Female Female Reproductive History Menstrual Age of Menarche: 14 Review of Systems Const Denies chills, Denies excessive sweating, Denies fever(s), Denies headache(s) and Denies night sweats Eyes Denies dry eyes, Denies irritation and Denies itchy eyes ENT Reports Normal hearing present, Denies headache(s), Denies nasal congestion, Denies nasal discharge, Denies post nasal drip and Denies sore throat Card Denies chest pain, Denies chest pain at rest, Denies chest pain with activity and Denies claudication Resp Denies chest congestion, Denies excessive phlegm production, Denies pain on inspiration, Denies pain with cough, Denies stridor and Denies wheezing Musc Denies myalgias Neuro Reports Normal hearing present and Denies headache(s) Endo Denies excessive sweating García/Lymph Denies lymphadenopathy Aller/Immun Denies itchy eyes, Denies seasonal rhinorrhea and Denies wheezing Physical Exam Vital Signs: Last Vital Signs Pulse 73 06/23/24 14:43 BP 136/74 06/23/24 14:43 Pulse Ox 97 06/23/24 14:43 Oxygen Delivery Method Room Air 06/23/24 14:43 BMI result Body Mass Index 41.6 Const General: cooperative, healthy appearing, comfortable, no acute distress, well developed and alert Nutritional Appearance: obese Orientation/consciousness: patient oriented x3 Limitations: ambulation with cane HEENT Head: Yes normal to inspection, Yes normocephalic and Yes atraumatic Ears: hearing grossly normal bilaterally and external ears normal Eyes General: appearance normal, both eyes and all related structures Eyelids: Yes eyelids normal Sclerae: sclerae normal EOM: EOMs intact bilaterally Neck Neck: Yes normal visual inspection and Yes no lymphadenopathy Lymphatic: no lymphadenopathy noted Chest Chest palpation & inspection: normal inspection of the chest Resp Effort & Inspection: normal respiratory effort, able to speak in complete sentences, no audible wheezes, no cough, no stridor, not tachypneic, no tripod positioning and no use of accessory muscles Auscultation: clear to auscultation bilaterally Cardio Jugular venous distension: no JVD Rate: regular rate Rhythm: regular rhythm Skin Other: warm, dry General skin exam: no rashes or lesions noted Neuro General: patient oriented x3 Cranial nerves: Yes Normal hearing present Cognition (Neuro): normal cognition Extrem Other: 2+ pitting BLE Psych Appearance: grossly normal and well kempt Speech and movement: Normal speech and movement present and Clear speech present Affect: normal affect Attitude: cooperative Thought process: Normal thought process present Thought content: Normal thought content present Insight: Good insight present (Psych) Judgement: Good judgement present (Psych) Results Reviewed Results Reviewed: [address] [address] [address] Scan Report Signed Patient: Luz Elena Montgomery MR#: [id number] : 1945 Acct:[id number] Age/Sex: 78 / F ADM Date: 04/30/24 Loc: HO.CT Attending Dr: Zechariah Mark MD Ordering Physician: ZECHARIAH MARK MD Date of Service: 04/30/24 Procedure(s): CT chest wo IV con Accession Number(s): [id number] cc: ZECHARIAH MARK MD; Name,Royal BEATTY~ EXAMINATION: CT CHEST WITHOUT CONTRAST CLINICAL INFORMATION: Abnormal findings on chest x-ray 02/27/2024; 7 mm nodular opacity right upper chest, rule out nodule. COMPARISON: CT chest no contrast 06/10/2018. Chest x-ray 10/04/2020. TECHNIQUE: Multidetector volumetric CT imaging of the chest was done. Axial MIP volume rendering provided. Sagittal and coronal reformatted images were obtained. This CT examination was performed using dose optimization techniques as appropriate, variously including the following: *Automated exposure control *Adjustment of mA and/or kV according to patient size (this includes techniques or standardized protocols for targeted exams where dose is matched to indication/reason for exam; i.e. extremities or head) *Use of iterative reconstruction technique DLP: 235 mGy-cm FINDINGS: STEREOTYPE MOLDER: Previously seen 7 mm opacity overlying the right upper lobe not evident on this flower pot press operator view. Mild subpleural scarring in the right apex and right midlung. Lungs otherwise clear. Aorta appears tortuous. See below. LUNGS: -There is stable pleural/parenchymal scarring in the lateral right apex. -There is mild subpleural scarring with minimal volume loss involving the anterolateral bilateral upper lobes, and also involving the right middle lobe, lingula, and bilateral lower lobes mid to superior regions. Findings are concerning for developing subpleural fibrosis. These findings are new from the prior CT examination. -There is a 4 cm calcified granuloma in the anterior right upper lobe (series 5, image 26). This is unchanged. -There is mild scarring in the anterior segment right upper lobe, unchanged. -There is mild subpleural scarring with associated bronchiectasis in the lateral segment of the right middle lobe with mild volume loss, unchanged. -There are no suspicious nodules. -There are no new consolidations or groundglass opacities. -No significant bronchial wall thickening or additional foci of bronchiectasis. MEDIASTINUM: -Normal thyroid gland. -Mild to moderate calcification of the great vessels. -Aorta is mildly uncoiled, moderately calcified, and tortuous. There is no aortic aneurysm. -Main pulmonary artery is quite prominent at 3.7 cm, which is upper limits of normal/early dilation. -There is no mediastinal or hilar lymphadenopathy detected. -Stable collateral vein in the right aspect of the anterior mediastinal fat. -No esophageal abnormality. -Heart size is normal. There is extensive calcification of the mitral annulus. -There is no pericardial effusion. CORONARY ARTERY CALCIFICATION: There is heavy calcification of the coronary arteries. PLEURA: There is no pleural effusion. No pleural mass or thickening. AXILLA/CHEST WALL: No lymphadenopathy. There has been a right mastectomy. Suspect prior radiation to the mastectomy site. UPPER ABDOMEN: Calcified granulomas noted in segment 4A. Liver otherwise normal. Moderate to heavy calcification of the aorta and visualized arteries. -There is a 2 cm simple cyst in the anterior left kidney. There is mild bilateral perirenal stranding. OSSEOUS STRUCTURES: -Severe arthritis in the right sternoclavicular joint is present with a dislocated clavicular head. This appears chronic. Stable lucency in the superior manubrium on the left is consistent with a benign degenerative geode. -Mild to moderate degenerative arthritis of the imaged spine with mild dextroconvex thoracic scoliosis. -No suspicious lytic or blastic bone lesions seen. CT/CT chest wo IV con IMPRESSION: 1. No suspicious pulmonary nodule present. Suspect the finding on chest x-ray was related to underlying granuloma or resolved abnormality. A few scattered granulomata are present. 2. There has been development of mild subpleural reticular opacities in the bilateral upper lobes, right middle lobe, lingular segment, and upper aspects of the bilateral lower lobes. These were not present previously, and are indeterminate at this time. Differential diagnosis is extensive although favored is early developing interstitial disease/fibrotic lung disease related to underlying collagen vascular disease (upper lung predominant findings argue against UIP or NSIP). Consider follow-up CT examination in 6 months to assess for progression. 3. 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 4. Stable pleural parenchymal consolidative opacity in the right apex, most likely parenchymal scarring given stability. 5. Stable severe arthritis right sternoclavicular joint with superior subluxation and remodeling of the right clavicular head. Stable lucency in the superior left manubrium is consistent with a degenerative geode. There are no suspicious bone lesions. 6. See the body the report for additional ancillary findings. Fleischner guidelines were followed. Dictated By: Fernando Contreras MD Signed By: <Electronically signed by Fernando Contreras MD in OV> 06/03/24 1011 DD/ 0850 TD/TT: Point Of Care Specialist: Assessment & Plan Assessment & Plan (1) Dyspnea on exertion: Code(s): R06.09 - Other forms of dyspnea Category: Medical (2) Pleural scarring: Code(s): J94.8 - Other specified pleural conditions Category: Medical Plan Luz Elena presents for pulmonary evaluation after abnormal chest CT which was performed for chronic cough. CT revealed possible early ILD however likely related to prior radiation. Will send for repeat chest CT in 6 months to assess for stability. Will also send for PFT to evaluate for any obstructive or restrictive defect. She is requesting this order be sent to [facility]. She reports prior evaluation with cardiology and has been taking lasix 40 mg BID for likely CHF, however there is no recent records. Will send for echo to assess for heart failure or pulmonary hypertension given mild enlargement of pulmonary artery found on chest CT. All questions were answered and patient is in agreement of plan. Will follow up to review results or sooner if needed. Orders: Orders CA echo transthoracic complete Today R06.09 - Other forms of dyspnea CT chest wo IV con 4 Months J94.8 - Other specified pleural conditions PFT pulmonary function test Today R06.09 - Other forms of dyspnea Coding Level of Care Code New Pt Level 4 (35525) Diagnoses Dyspnea on exertion R06.09 Pleural scarring J94.8
[2024-06-23 14:43] VITALS: BP 136/74; PULSE 73; O2SAT 97; BMI 41.6
== END 2024-06-23 15:27 | disposition home or self-care (01) ==
PROVIDERS: PCP Internal Medicine Geriatric Medicine; Referring Provider Internal Medicine Geriatric Medicine; Visit Provider Nurse Practitioner Family
DX: R06.09 Other forms of dyspnea (principal); J94.8 Other specified pleural conditions
CPT/HCPCS: 99204

== ENCOUNTER → 2024-06-23 14:40 | Outpatient (BNVA) | payer MEDICARE, MEDICAID, SELFPAY | PROVIDERS: PCP Internal Medicine Geriatric Medicine; Referring Provider Internal Medicine Geriatric Medicine; Visit Provider Nurse Practitioner Family | DX: R06.89 Other abnormalities of breathing (principal); J94.8 Other specified pleural conditions; R06.01 Orthopnea; R05.9 Cough, unspecified; Z87.891 Personal history of nicotine dependence | CPT/HCPCS: 99202 ==

== ENCOUNTER → 2024-07-11 10:41 | Outpatient (REF) | payer MEDICARE, MEDICAID, SELFPAY ==
--- NOTE | 2024-07-11 10:43 | CA_ITS ---
Transthoracic Echocardiogram Patient (Last, First, Middle): Luz Elena Montgomery A Gender: Female Date of : 1945 Age: 79 Procedure Date: 07/11/2024 Procedure Type: Transthoracic Echocardiogram Location: OP Height: 167.64 cm Weight: 108.86 kg BSA: 2.16 m2 Heart Rate: bpm BP: 148 / 80 mmHg Mechanical Laboratory Technician: TO Referring MD: Bertha Williamson NP Symptoms: R06.09 - Other forms of dyspnea Study Quality: Adequate Conclusions: - Normal left ventricular size and systolic function. There is mildly increased left ventricular wall thickness. The visually estimated ejection fraction is between 60-65%. - Normal right ventricular cavity size and systolic function. - There is trace (trivial) aortic valve regurgitation. - There is mild dilatation of the ascending aorta measuring 4.00 cm. Findings Left Ventricle Normal left ventricular size and systolic function. There is mildly increased left ventricular wall thickness. The visually estimated ejection fraction is between 60-65%. There is no evidence of regional wall motion abnormalities. Diastolic function is indeterminate on the basis of available data. Right Ventricle Normal right ventricular cavity size and systolic function. Atria The left atrium is mildly dilated. The right atrium is normal in size. Aortic Valve There is a normal trileaflet aortic valve. There is mild calcification of the aortic valve. There is no aortic valve stenosis. There is trace (trivial) aortic valve regurgitation. Mitral Valve There is severe mitral annular calcification. There is no mitral valve regurgitation. There is no mitral valve stenosis. Pulmonic Valve The pulmonic valve is normal. There is trace pulmonic valve regurgitation. Tricuspid Valve Normal tricuspid valve structure. There is no tricuspid valve regurgitation. Normal right atrial pressure. There is no evidence of pulmonary hypertension. Great Vessels There is mild dilatation of the ascending aorta measuring 4.00 cm. Venous The inferior vena cava is normal in size and collapses greater than 50% with inspiration. Pericardium/Pleural There is no evidence of pericardial effusion. Prior Study Comparison Changes noted compared to prior study dated: 05/16/2019. severe MAC. trace AI. Measurements 2D Linear Measurements IVSd: 1.21 0.6-0.9/0.6-1.0 cm LVIDd: 4.34 3.9-5.3/4.2-5.9 cm LVIDd Index: 2.01 2.4-3.2/2.2-3.1 cm/m2 LVIDs: 2.77 2.0-3.6 cm LVPWd: 0.92 0.7-1.1 cm LA Diam: 4.40 2.7-3.8/3.0-4.0 cm LAIDs Index: 2.04 1.5-2.3 cm/m2 LV Mass: 196.79 67-162/88-224 g LV Mass Index: 91.11 43-95/49-115 g/m2 LVOT Diam: 2.00 3.0+(-)1.3 cm 2D Systolic Function EF 4C: 56.80 >55% EF 2C: 49.60 >55% EF BiP: 53.00 >55% Mitral Valve MV VTI: 0.43 MV Pk Elias: 1.43 MV Mn Elias: 1.02 MV Pk Grad: 8.00 MV Mn Grad: 5.00 MV Pk E: 1.31 MV PK A: 1.14 MV Decel Time: 246.00 E/A: 1.10 E'Lateral: 3.81 E'Medial: 3.37 E/E' Med: 38.90 E/E' Lat: 34.40 PHT: 72.00 MVA PHT: 3.06 MVA Continuity: 1.35 Decel [place]: 5.32 Aortic Valve AoV Pk Elias: 1.35 AoV Mn Elias: 0.88 AoV VTI: 0.29 AoV Pk Grad: 7.00 Aov Mn Grad: 4.00 GEOFFREY Cont.VTI: 2.00 LVOT LVOT Pk Elias: 0.88 LVOT Mn Elias: 0.61 LVOT VTI: 0.18 LVOT Pk Grad: 3.00 LVOT Mn Grad: 2.00 LVOT Diam: 2.00 LVOT Area: 3.14 Diastolic Function MV Pk E: 1.31 MV Pk A: 1.14 E/A: 1.10 E'Medial: 3.37 E/E' Med: 38.90 E' Laterial: 3.81 E/E' Lat: 34.40 Right Ventricle TAPSE (mm): 23.00 TVS' Elias: 12.30 Tricuspid Valve TR Pk Elias: 2.46 TR Pk Grad: 24.00 RA Press: 3.00 RVSP: 27.00 Great Vessels Aorta Sinus of Valsalva: 3.63 2.0-3.5 cm Ao Asc: 4.00 2.1-3.4 cm Ao Arch: 3.00 Updated in Other Vendor System with Status of Final Silvano Villalpando MD electronically signed on 07/12/2024 10:48:01 PM with status of Final
== END ==
LOC: HO.CARD 10:41
PROVIDERS: PCP Internal Medicine Geriatric Medicine; Visit Provider Nurse Practitioner Family
DX: R06.09 Other forms of dyspnea (principal)
CPT/HCPCS: 93306

== ENCOUNTER → 2024-07-11 10:43 | Outpatient (BNV) | payer MEDICARE, MEDICAID, SELFPAY | PROVIDERS: PCP Internal Medicine Geriatric Medicine; Visit Provider Internal Medicine Cardiovascular Disease | DX: I35.1 Nonrheumatic aortic (valve) insufficiency (principal); I34.81 Nonrheumatic mitral (valve) annulus calcification | CPT/HCPCS: 93306 ==

== ENCOUNTER 2024-08-04 10:24 | Outpatient (AMB) | payer MEDICARE, MEDICAID, SELFPAY ==
--- NOTE | 2024-08-04 10:09 | A.OFFVIS_ITS ---
Vital Signs 08/04/24 10:29 Height 5 ft 4 in Weight 243 lb 9.773 oz BMI 41.8 BP 124/72 Blood Pressure Location Lt brachial Position Sitting Pulse 87 Pulse Source Pulse Oximeter Pulse Oximetry (%) 98 Oxygen Delivery Method Room Air Intake Visit Reasons: WALTER Student Teaching Coordinator Required: Yes Student Teaching Coordinator Language: Drilling Field Operator Name: [id number] Ashley Allergies No Known Allergies [No Known Allergies*] Allergy (Verified 08/04/24 10:35) HPI HPI WALTER: Details: Luz Elena is pleasant 79 year old female, former minimal smoker, with underlying h/o right breast cancer s/p chemo, radiation and mastectomy in 1998, CKD IV, DMII and HTN. She is accompanied by her son-in-law. She previously reported ongoing dry cough for many years with associated dyspnea on exertion and orthopnea. However since the last visit, she reports resolution of cough. She notes dyspnea on exertion however not as pronounced. She has upcoming PFT and chest CT in October. She presents today to review echo. She previously stated that she could not recall when she had her last echo however at this time notes she is under the care of [facility]. 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 Housing: Apartment Do you presently have visiting nurse or other home services: Yes Alcohol intake: never Patient Tobacco Use Status: Former Tobacco user Years Smoked: quit 6 years ago service: No Current occupational status: disabled Sexual orientation: Straight/Heterosexual Gender identity: Female Female Reproductive History Menstrual Age of Menarche: 14 Review of Systems Const Denies chills, Denies excessive sweating, Denies fever(s), Denies headache(s) and Denies night sweats Eyes Denies dry eyes, Denies irritation and Denies itchy eyes ENT Reports Normal hearing present, Denies headache(s), Denies nasal congestion, Denies nasal discharge, Denies post nasal drip and Denies sore throat Card Denies chest pain, Denies chest pain at rest, Denies chest pain with activity, Denies claudication and Reports dyspnea on exertion Resp Denies chest congestion, Denies cough, Denies excessive phlegm production, Denies pain on inspiration, Denies pain with cough, Reports dyspnea on exertion, Denies stridor and Denies wheezing Musc Denies myalgias Neuro Reports Normal hearing present and Denies headache(s) Endo Denies excessive sweating García/Lymph Denies lymphadenopathy Aller/Immun Denies itchy eyes, Denies seasonal rhinorrhea and Denies wheezing Physical Exam Vital Signs: Last Vital Signs Pulse 87 08/04/24 10:29 BP 124/72 08/04/24 10:29 Pulse Ox 98 08/04/24 10:29 Oxygen Delivery Method Room Air 08/04/24 10:29 BMI result Body Mass Index 41.8 Const General: cooperative, healthy appearing, comfortable, no acute distress, well developed and alert Nutritional Appearance: obese Orientation/consciousness: patient oriented x3 Limitations: ambulation with cane HEENT Head: Yes normal to inspection, Yes normocephalic and Yes atraumatic Ears: hearing grossly normal bilaterally and external ears normal Eyes General: appearance normal, both eyes and all related structures Eyelids: Yes eyelids normal Sclerae: sclerae normal EOM: EOMs intact bilaterally Neck Neck: Yes normal visual inspection and Yes no lymphadenopathy Lymphatic: no lymphadenopathy noted Chest Chest palpation & inspection: normal inspection of the chest Resp Effort & Inspection: normal respiratory effort, able to speak in complete sentences, no audible wheezes, no cough, no stridor, not tachypneic, no tripod positioning and no use of accessory muscles Auscultation: clear to auscultation bilaterally Cardio Jugular venous distension: no JVD Rate: regular rate Rhythm: regular rhythm Skin Other: warm, dry General skin exam: no rashes or lesions noted Neuro General: patient oriented x3 Cranial nerves: Yes Normal hearing present Cognition (Neuro): normal cognition Extrem Other: trace BLE edema Psych Appearance: grossly normal and well kempt Speech and movement: Normal speech and movement present and Clear speech present Affect: normal affect Attitude: cooperative Thought process: Normal thought process present Thought content: Normal thought content present Insight: Good insight present (Psych) Judgement: Good judgement present (Psych) Results Reviewed Results Reviewed: [address] [address] Cardiology Report Signed Patient: Luz Elena Montgomery MR#: [id number] : 1945 Acct:[id number] Age/Sex: 79 / F ADM Date: 07/11/24 Loc: [facility] Attending Dr: Bertha Williamson NP Ordering Physician: Bertha Williamson NP Date of Service: 07/11/24 Procedure(s): CA echo transthoracic complete Accession Number(s): cc: Bertha Williamson NP~ Transthoracic Echocardiogram Patient (Last, First, Middle): Luz Elena Montgomery A Gender: Female Date of : 1945 Age: 79 Procedure Date: 07/11/2024 Procedure Type: Transthoracic Echocardiogram Location: OP Height: 167.64 cm Weight: 108.86 kg BSA: 2.16 m2 Heart Rate: bpm BP: 148 / 80 mmHg 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 There is mildly increased left ventricular wall thickness. The visually estimated ejection fraction is between 60-65%. - Normal right ventricular cavity size and systolic function. - There is trace (trivial) aortic valve regurgitation. - There is mild dilatation of the ascending aorta measuring 4.00 cm. Findings Left Ventricle Normal left ventricular size and systolic function. There is mildly increased left ventricular wall thickness. The visually estimated ejection fraction is between 60-65%. There is no evidence of regional wall motion abnormalities. Diastolic function is indeterminate on the basis of available data. Right Ventricle Normal right ventricular cavity size and systolic function. Atria The left atrium is mildly dilated. The right atrium is normal in size. Aortic Valve There is a normal trileaflet aortic valve. There is mild calcification of the aortic valve. There is no aortic valve stenosis. There is trace (trivial) aortic valve regurgitation. Mitral Valve There is severe mitral annular calcification. There is no mitral valve regurgitation. There is no mitral valve stenosis. Pulmonic Valve The pulmonic valve is normal. There is trace pulmonic valve regurgitation. Tricuspid Valve Normal tricuspid valve structure. There is no tricuspid valve regurgitation. Normal right atrial pressure. There is no evidence of pulmonary hypertension. Great Vessels There is mild dilatation of the ascending aorta measuring 4.00 cm. Venous The inferior vena cava is normal in size and collapses greater than 50% with inspiration. Pericardium/Pleural There is no evidence of pericardial effusion. Prior Study Comparison Changes noted compared to prior study dated: 05/16/2019. severe MAC. trace AI. Measurements 2D Linear Measurements IVSd: 1.21 0.6-0.9/0.6-1.0 cm LVIDd: 4.34 3.9-5.3/4.2-5.9 cm LVIDd Index: 2.01 2.4-3.2/2.2-3.1 cm/m2 LVIDs: 2.77 2.0-3.6 cm LVPWd: 0.92 0.7-1.1 cm LA Diam: 4.40 2.7-3.8/3.0-4.0 cm LAIDs Index: 2.04 1.5-2.3 cm/m2 LV Mass: 196.79 67-162/88-224 g LV Mass Index: 91.11 43-95/49-115 g/m2 LVOT Diam: 2.00 3.0+(-)1.3 cm 2D Systolic Function EF 4C: 56.80 >55% EF 2C: 49.60 >55% EF BiP: 53.00 >55% Mitral Valve MV VTI: 0.43 MV Pk Elias: 1.43 MV Mn Elias: 1.02 MV Pk Grad: 8.00 MV Mn Grad: 5.00 MV Pk E: 1.31 MV PK A: 1.14 MV Decel Time: 246.00 E/A: 1.10 E'Lateral: 3.81 E'Medial: 3.37 E/E' Med: 38.90 E/E' Lat: 34.40 PHT: 72.00 MVA PHT: 3.06 MVA Continuity: 1.35 Decel [place]: 5.32 Aortic Valve AoV Pk Elais: 1.35 AoV Mn Elias: 0.88 AoV VTI: 0.29 AoV Pk Grad: 7.00 Aov Mn Grad: 4.00 GEOFFREY Cont.VTI: 2.00 LVOT LVOT Pk Elias: 0.88 LVOT Mn Elias: 0.61 LVOT VTI: 0.18 LVOT Pk Grad: 3.00 LVOT Mn Grad: 2.00 LVOT Diam: 2.00 LVOT Area: 3.14 Diastolic Function MV Pk E: 1.31 MV Pk A: 1.14 E/A: 1.10 E'Medial: 3.37 E/E' Med: 38.90 E' Laterial: 3.81 E/E' Lat: 34.40 Right Ventricle TAPSE (mm): 23.00 TVS' Elias: 12.30 Tricuspid Valve TR Pk Elias: 2.46 TR Pk Grad: 24.00 RA Press: 3.00 RVSP: 27.00 Great Vessels Aorta Sinus of Valsalva: 3.63 2.0-3.5 cm Ao Asc: 4.00 2.1-3.4 cm Ao Arch: 3.00 Updated in Other Vendor System with Status of Final Silvano Villalpando MD electronically signed on 07/12/2024 10:48:01 PM with status of Final Dictated By: Silvano Villalpando MD Signed By: <Electronically signed by Silvano Villalpando MD in OV> 07/12/24 2247 DD/ 1112 TD/TT: Can Striper: Assessment & Plan Assessment & Plan (1) Dyspnea on exertion: Code(s): R06.09 - Other forms of dyspnea Category: Medical (2) Pleural scarring: Code(s): 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 Awaiting PFT to be scheduled. She has repeat CT chest scheduled for October as prior CT revealed possible early ILD however likely related to prior radiation. Reviewed echo which revealed LVEF 60-65% with severe mitral annular calcification, without mitral valve regurgitation or mitral valve stenosis. She is under the care of [facility], will send report and request prior records. All questions were answered and patient is in agreement of plan. Will follow up to review results in three months or sooner if needed. Coding Level of Care Code Est Pt Level 4 (17552) Diagnoses Dyspnea on exertion R06.09 Pleural scarring J94.8
[2024-08-04 10:29] VITALS: BP 124/72; PULSE 87; O2SAT 98; BMI 41.8
== END 2024-08-04 10:50 | disposition home or self-care (01) ==
PROVIDERS: PCP Internal Medicine Geriatric Medicine; Visit Provider Nurse Practitioner Family
DX: R06.09 Other forms of dyspnea (principal); J94.8 Other specified pleural conditions
CPT/HCPCS: 99214

== ENCOUNTER → 2024-08-04 10:24 | Outpatient (BNVA) | payer MEDICARE, MEDICAID, SELFPAY | PROVIDERS: PCP Internal Medicine Geriatric Medicine; Visit Provider Nurse Practitioner Family | DX: R06.09 Other forms of dyspnea (principal); J94.8 Other specified pleural conditions | CPT/HCPCS: 99212 ==

== ENCOUNTER 2024-08-29 09:38 | Outpatient (REF) | payer MEDICARE, MEDICAID, SELFPAY ==
--- NOTE | ~2024-08-29 | MM_ITS ---
EXAMINATION: MM SCREENING DIGITAL BREAST TOMOSYNTHESIS, BILATERAL CLINICAL INFORMATION: Screening. Asymptomatic. Right mastectomy. COMPARISON: Mammography: This study is compared with prior exams dating back to TECHNIQUE: Digital breast tomosynthesis is performed in both the craniocaudal and mediolateral oblique views along with computer-aided detection (CAD). Synthesized 2D images are generated from the tomosynthesis. FINDINGS: There are scattered areas of fibroglandular density (ACR BI-RADS breast composition Category b). There are no significant masses, abnormal calcifications, or other abnormalities. MM/MM tomosynthesis screening LT IMPRESSION: No mammographic evidence of malignancy. ASSESSMENT: BI-RADS BI-RADS 1 - Negative RECOMMENDATION: Routine annual mammography screening. 1 year F/U This examination should not preclude the clinical evaluation of a suspicious palpable abnormality. This patient's information was entered into a reminder system with a target due date for their next mammogram. Electronically signed by: Jane Douglas DO 09/09/2024 04:57 PM EDT
== END 2024-08-29 09:39 | disposition home or self-care (01) ==
LOC: HO.MAMMO 09:38
PROVIDERS: PCP Internal Medicine Geriatric Medicine; Visit Provider Internal Medicine Geriatric Medicine
DX: Z12.31 Encounter for screening mammogram for malignant neoplasm of breast (principal)
CPT/HCPCS: 77063; 77067

== ENCOUNTER → 2024-08-29 10:00 | Outpatient (BNV) | payer MEDICARE, MEDICAID, SELFPAY | PROVIDERS: PCP Internal Medicine Geriatric Medicine; Visit Provider Internal Medicine | DX: Z12.31 Encounter for screening mammogram for malignant neoplasm of breast (principal) | CPT/HCPCS: 77063; 77067 ==

== ENCOUNTER 2024-11-17 08:26 | Outpatient (AMB) | payer OTHER, SELFPAY ==
--- NOTE | 2024-11-16 20:17 | MHC.OFFVIS ---
Vital Signs 11/17/24 08:51 Height 5 ft 4 in Weight 243 lb 9.773 oz BMI 41.8 BP 130/64 Blood Pressure Location Lt brachial Position Sitting Pulse 89 Pulse Source Pulse Oximeter Pulse Oximetry (%) 98 Oxygen Delivery Method Room Air Intake Visit Reasons: WALTER Primer Inserting Machine Adjuster Required: Yes Primer Inserting Machine Adjuster Language: Intranet Developer Name: [id number] Luz Elena Fields Allergies No Known Allergies [No Known Allergies*] Allergy (Verified 11/17/24 09:00) HPI HPI WALTER: Details: Luz Elena is pleasant 79 year old female, former minimal smoker, with underlying h/o right breast cancer s/p chemo, radiation and mastectomy in 1998, CKD IV, DMII and HTN. She is accompanied by her son-in-law. She previously reported ongoing dry cough for many years with associated dyspnea on exertion and orthopnea. She notes dyspnea on exertion minimally affecting ADLS. Patient's activity level minimal. She had PFT scheduled however unclear why this was rescheduled. Chest CT scheduled in November as prior noted possible early ILD however patient did undergo radiation for right breast cancer. She also notes daytime fatigue, and will wake up gasping while sleeping, no prior dx of CARMELITA. Today she also notes lower left sided back pain exacerbated by ambulating, has discussed with PCP, attributes to arthritic changes. She denies any visits to urgent care or hospitalizations since the last visit. 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 Housing: Apartment Do you presently have visiting nurse or other home services: Yes Alcohol intake: never Patient Tobacco Use Status: Former Tobacco user Years Smoked: quit 6 years ago service: No Current occupational status: disabled Sexual orientation: Straight/Heterosexual Gender identity: Female Female Reproductive History Menstrual Age of Menarche: 14 Review of Systems Const Denies chills, Denies excessive sweating, Denies fever(s), Denies headache(s) and Denies night sweats Eyes Denies dry eyes, Denies irritation and Denies itchy eyes ENT Reports Normal hearing present, Denies headache(s), Denies nasal congestion, Denies nasal discharge, Denies post nasal drip and Denies sore throat Card Denies chest pain, Denies chest pain at rest, Denies chest pain with activity, Denies claudication, Denies leg edema, Denies orthopnea and Denies paroxysmal nocturnal dyspnea Resp Denies chest congestion, Denies excessive phlegm production, Denies pain on inspiration, Denies pain with cough and Denies stridor Musc Denies myalgias Neuro Reports Normal hearing present and Denies headache(s) Endo Denies excessive sweating García/Lymph Denies lymphadenopathy Aller/Immun Denies itchy eyes and Denies seasonal rhinorrhea Physical Exam Vital Signs: Last Vital Signs Pulse 89 11/17/24 08:51 BP 130/64 11/17/24 08:51 Pulse Ox 98 11/17/24 08:51 Oxygen Delivery Method Room Air 11/17/24 08:51 BMI result Body Mass Index 41.8 Const General: cooperative, healthy appearing, comfortable, no acute distress, well developed and alert Nutritional Appearance: obese Orientation/consciousness: patient oriented x3 Limitations: ambulation with cane HEENT Head: Yes normal to inspection, Yes normocephalic and Yes atraumatic Ears: hearing grossly normal bilaterally and external ears normal Eyes General: appearance normal, both eyes and all related structures Eyelids: Yes eyelids normal Sclerae: sclerae normal EOM: EOMs intact bilaterally Neck Neck: Yes normal visual inspection and Yes no lymphadenopathy Lymphatic: no lymphadenopathy noted Chest Chest palpation & inspection: normal inspection of the chest Resp Effort & Inspection: normal respiratory effort, able to speak in complete sentences, no audible wheezes, no cough, no stridor, not tachypneic, no tripod positioning and no use of accessory muscles Auscultation: clear to auscultation bilaterally Cardio Jugular venous distension: no JVD Rate: regular rate Rhythm: regular rhythm Back/Spine/Pelvis Other: TTP Skin Other: warm, dry General skin exam: no rashes or lesions noted Neuro General: patient oriented x3 Cranial nerves: Yes Normal hearing present Cognition (Neuro): normal cognition Gait exam (Neuro): Normal gait present Extrem General: Yes normal to inspection, Yes capillary refill normal, Yes no clubbing, cyanosis or edema and Yes no pedal edema Psych Appearance: grossly normal and well kempt Speech and movement: Normal speech and movement present and Clear speech present Affect: normal affect Attitude: cooperative Thought process: Normal thought process present Thought content: Normal thought content present Insight: Good insight present (Psych) Judgement: Good judgement present (Psych) Assessment & Plan Assessment & Plan (1) Dyspnea on exertion: Code(s): R06.09 - Other forms of dyspnea Category: Medical (2) Pleural scarring: Code(s): J94.8 - Other specified pleural conditions Category: Medical (3) Paroxysmal nocturnal dyspnea: Code(s): R06.00 - Dyspnea, unspecified Category: Medical Plan Luz Elena reports new onset cough x 2 weeks however intermittent, denies chest congestion, fever or chills. Patient aware if symptoms worsen to call office. She reports symptoms suggestive of CARMELITA with paroxsymal nocturnal dyspnea, daytime fatigue and nonrestorative sleep. Will send for home sleep study. She continues to report dyspnea on moderate exertion, awaiting PFT to be scheduled. Respiratory exam unremarkable. She has repeat CT chest scheduled for October as prior CT revealed possible early ILD however likely related to prior radiation. All questions were answered and patient is in agreement of plan. Will follow up to review results or sooner if needed. Orders: Orders RT home sleep study Today R06.00 - Dyspnea, unspecified, R40.0 - Somnolence PFT pulmonary function test Today R06.09 - Other forms of dyspnea Coding Level of Care Code Est Pt Level 4 (54416) Diagnoses Dyspnea on exertion R06.09 Pleural scarring J94.8 Paroxysmal nocturnal dyspnea R06.00
[2024-11-17 08:51] VITALS: BP 130/64; PULSE 89; O2SAT 98; BMI 41.8
== END 2024-11-17 09:19 | disposition home or self-care (01) ==
PROVIDERS: PCP Internal Medicine Geriatric Medicine; Visit Provider Nurse Practitioner Family
DX: R06.09 Other forms of dyspnea (principal); J94.8 Other specified pleural conditions; R06.00 Dyspnea, unspecified
CPT/HCPCS: 99214

== ENCOUNTER → 2024-11-17 08:26 | Outpatient (BNVA) | payer OTHER, SELFPAY | PROVIDERS: PCP Internal Medicine Geriatric Medicine; Visit Provider Nurse Practitioner Family | DX: R06.09 Other forms of dyspnea (principal); J98.4 Other disorders of lung; R06.00 Dyspnea, unspecified | CPT/HCPCS: 99212 ==

== ENCOUNTER 2024-12-30 10:50 | Outpatient (REF) | payer OTHER, SELFPAY ==
--- NOTE | 2024-12-30 10:55 | PFT_ITS ---
Indication: Dyspnea Spirometry [FEV1 to FVC 70%; FEV1 1.68 L; FVC 2.39 L. there was a significant response to bronchodilators noted.] Lung Volumes [Total lung capacity 82% predicted; expiratory reserve volume 16% predicted] Diffusion Capacity [DLCO 72% predicted] Comparisons [None] Interpretation [There is a mild obstructive ventilatory defect during the post bronchodilator spirometry measurements. Nose significant response to bronchodilators noted. Lung volumes are low normal likely secondary to an elevated BMI. The patient does have a mild diffusion impairment as well. Clinical correlation warranted.] MTDD
--- OUTSIDE RECORDS SUMMARY | 2024-12-30 12:09 | XMS_ITS | Encounter Summary ---
Author Organization [facility], Address [address] [address] Phone Care Team Providers Care Repairer Switchgear Name Role Phone Name, Royal BEATTY Primary Care Provider [phone] Encounter Details Date Type Department Care Team ([facility] Contact Info) Description 05/30/2024 Documentation Only [facility] [address] [place] [address] Elidia Cruz [place] [address] [place] [phone] Social History Tobacco Use Types Packs/Day Years Used Date Smoking Tobacco: Former Cigarettes Comments:Smoking History Inf o:Every day Alcohol Use Standard Drinks/Week Comments No 0 (1 standard drink = 0.6 oz pur e alcohol) Comments Unknown Sex and Gender Information Value Date Recorded Sex Assigned at Not on file Legal Sex Female 4:30 PM EST Gender Identity Not on file Sexual Orientation Not on file documented as of this encounter Plan of Treatment Upcoming Encounters Date Type Department Care Team ([facility] Contact Info) Description 02/20/2025 3:45 PM EDT Office Visit [facility] [address] [place] [address] Abiel Gross MD [address] [place] [phone] documented as of this encounter Visit Diagnoses Not on filedocumented in this encounter Care Teams Repairer Switchgear Relationship Specialty Start Date End Date Name, MD Royal [address] [place] [id number] PCP - General 09/23/19 documented as of this encounter
--- OUTSIDE RECORDS SUMMARY | 2024-12-30 12:09 | XMS_ITS | Encounter Summary ---
Author Organization [facility], Address [address] [address] Phone Care Team Providers Care Crisis Intervention Counselor Name Role Phone Name, Roayl BEATTY Primary Care Provider [phone] Encounter Details Date Type Department Care Team (Late Contact Info) Description 05/30/2023 Documentation Only [facility] [address] [place] [address] Abiel Gross MD [address] [place] [address] [place] [address] Social History Tobacco Use Types Packs/Day Years [...] Upcoming Encounters Date Type Department Care Team (Late Contact Info) Description 02/20/2025 3:45 PM EDT Office Visit [facility] [address] [place] [address] Abiel Gross MD [address] [place] [address] [place] [address] documented as of this encounter Visit Diagnoses Not on filedocumented in this encounter Care Teams Crisis Intervention Counselor Relationship Specialty Start Date End Date Name, MD Royal [address] [place] [id number] PCP - General 09/23/19 documented as of this encounter
--- OUTSIDE RECORDS SUMMARY | 2024-12-30 12:09 | XMS_ITS | Encounter Summary ---
Author Organization [facility], Address [address] [address] Phone Care Team Providers Care Paint Prep Technician Name Role Phone Name, Royal BEATTY Primary Care Provider [phone] Encounter Details Date Type Department Care Team (Late Contact Info) Description 01/18/2022 Documentation Only [facility] [address] [place] [address] Abiel Gross MD [address] [place] [address] [place] [address] Social History Tobacco Use Types [...] Visit [facility] [address] [place] [address] Abiel Gross MD [address] [place] [address] [place] [phone] documented as of this encounter Visit Diagnoses Not on filedocumented in this encounter Care Teams Paint Prep Technician Relationship Specialty Start Date End Date Name, MD Royal [address] [place] [id number] PCP - General 09/23/19 documented as of this encounter
--- OUTSIDE RECORDS SUMMARY | 2024-12-30 12:09 | XMS_ITS | Encounter Summary ---
Author Organization [facility] [place], Address [address] [address] Phone Care Team Providers Care Animal Cruelty Investigator Name Role Phone Name, Royal BEATTY Primary Care Provider [phone] Encounter Details Date Type Department Care Team ([facility] Contact Info) Description 05/15/2024 Documentation Only [facility] [address] [place] [address] Elidia Cruz [place] [address] [place] [phone] Social History Tobacco Use Types Packs/Day Years [...] Upcoming Encounters Date Type Department Care Team ([facility] Contact Info) Description 02/20/2025 3:45 PM EDT Office Visit [facility] [address] [place] [address] Abiel Gross MD [address] [place] [phone] documented as of this encounter Visit Diagnoses Not on filedocumented in this encounter Care Teams Animal Cruelty Investigator Relationship Specialty Start Date End Date Name, MD Royal [address] [place] [id number] PCP - General 09/23/19 documented as of this encounter
--- OUTSIDE RECORDS SUMMARY | 2024-12-30 12:09 | XMS_ITS | Encounter Summary ---
Author Organization [facility] [place], Address [address] [address] Phone Care Team Providers Care Sand Caster Name Role Phone Name, Royal BEATTY Primary Care Provider [phone] Encounter Details Date Type Department Care Team ([facility] Contact Info) Description 04/09/2023 Documentation Only [facility] [address] [place] [address] [place] [address] [place] [phone] Social History Tobacco Use Types Packs/Day Years [...] Upcoming Encounters Date Type Department Care Team ([facility] Contact Info) Description 02/20/2025 3:45 PM EDT Office Visit [facility] [address] [place] [address] Abiel Gross MD [address] [place] [address] [place] [phone] documented as of this encounter Visit Diagnoses Not on filedocumented in this encounter Care Teams Sand Caster Relationship Specialty Start Date End Date Name, MD Royal [address] [place] [phone] PCP - General 09/23/19 documented as of this encounter
--- OUTSIDE RECORDS SUMMARY | 2024-12-30 12:09 | XMS_ITS | Clinical Summary ---
Author Organization [facility] [place], Address [address] [place] [address] [place] [address] Phone Care Team Providers Care Head Transfer Clerk Name Role Phone Name, Roayl BEATTY Primary Care Provider [phone] Allergies No known active allergies Medications acetaminophen (TYLENOL) 500 MG tablet Take 2 tablets by mouth 3 (three) times a day Active amLODIPine (NORVASC) 2.5 MG tablet Take 1 tablet by mouth 1 (one) time each day Active Dulaglutide (TRULICITY) 0.75 MG/0.5ML solution pen-injector Inject 0.5 mL under the skin 1 (one) time per week 9 Active insulin glargine (LANTUS SOLOSTAR) 100 UNIT/ML injection Inject 50 Units under the skin at bed time Active levothyroxine (SYNTHROID, LEVOTHROID) 25 MCG tablet Take 1 tablet by mouth 1 (one) time each day Active losartan (COZAAR) 100 MG tablet Take 1 tablet by mouth 1 (one) time each day 8 Active raNITIdine (ZANTAC) 150 MG capsule Take 1 capsule by mouth at bed time Active rosuvastatin (CRESTOR) 10 MG tablet Take 1 tablet by mouth 1 (one) time each day Active aspirin 81 MG tablet Take 1 tablet by mouth 1 (one) time each day Active SM ASPIRIN ADULT LOW STRENGTH 81 MG EC tablet Take 81 mg by mouth at bed time 0 Active BANOPHEN 25 MG tablet Take 25 mg by mouth at night if needed 0 Active BYDUREON 2 MG pen-injector INJECT 0.65mL UNDER THE SKIN EVERY 7 DAYS IN THE ABDOMEN, THIGHS, OR OUTER AREA OF UPPER ARM ROTATING INJECTION SITES. 9 Active famotidine (PEPCID) 20 MG tablet Take 20 mg by mouth at bed time 9 Active gabapentin (NEURONTIN) 100 MG capsule Take 100 mg by mouth at bed time 0 Active FREESTYLE LITE test strip TEST BLOOD SUGAR EVERY DAY OR DIRECTED 0 Active HUMALOG KWIKPEN 100 UNIT/ML solution pen-injector INJECT 4 UNITS SUBCUTANEOUSLY ONLY BEFORE A LUNCH AND BEFORE SUPPER 9 Active PENTIPS 32G X 4 MM misc USE FOUR TIMES DAILY WITH humalog & lantus 0 Active TRUEPLUS LANCETS 33G misc TEST BLOOD SUGAR EVERY DAY OR DIRECTED 0 Active omeprazole (PriLOSEC) [address] capsule 1 Active NovoLOG FLEXPEN 100 UNIT/ML injection INJECT 10 UNITS SUBCUTANEOUSLY THREE TIMES DAILY BEFORE MEALS AND WITH SNACK 1 Active alendronate (FOSAMAX) 70 MG tablet take 1 tablet once a week with 6 to 8 oz of water 30 min before first food of day. do not lie down for 30 minutes 2 Active calcium carbonate 1500 (600 Ca) MG tablet TAKE 1 TABLET BY MOUTH TWICE DAILY IN THE MORNING AND IN THE EVENING WITH FOOD 2 Active TRUEplus Glucose On The Go 4 g chewable tablet CHEW 4 TABLETS NEEDED FOR low blood sugar (LESS THAN 70mg/dL) 2 Active Jardiance 10 MG tablet 3 Active fluconazole (DIFLUCAN) 150 MG tablet TAKE 1 TABLET BY MOUTH ONCE 3 Active calcitriol (Rocaltrol) 0.25 MCG capsule Take 1 capsule (0.25 mcg total) by mouth 1 (one) time each day 30 capsule 11 4 025 Active furosemide (LASIX) 40 MG tablet Take 1 tablet (40 mg total) by mouth every morning and evening 180 tablet 3 4 Active cholecalcifero l (VITAMIN D-3) 25 MCG (1000 UT) tablet TAKE 1 TABLET BY MOUTH EVERY MORNING 30 tablet 11 4 Active metoprolol tartrate 25 MG tablet TAKE 1 TABLET BY MOUTH TWICE DAILY IN THE MORNING AND IN THE EVENING 60 tablet 11 4 Active Active Problems Problem Noted Date Diagnosed Date Secondary hyperparathyroidism 03/23/2023 Anemia in chronic kidney disease 03/23/2023 Chronic kidney disease, stage 4 (severe) 023 Chronic kidney disease stage 3 11/20/2019 Essential hypertension 11/20/2019 Hyperlipidemia 11/20/2019 Proteinuria 11/20/2019 Type 2 diabetes mellitus without complication Encounters Date Type Department Care Team Description 11/10/2024 Office Communication [facility] [address] [place] [address] Josi England 10/04/2024 Refill [facility] [address] [place] [address] Abiel Gross MD from Last 3 Months Immunizations Name Administration Dates Next Due Influenza, Unspecified 11/01/2018 Pneumococcal Conjugate 13-Valent 08/01/2018 Pneumococcal Polysaccharide 04/29/2018 Zoster 08/01/2018 Social History Tobacco Use Types Packs/Day Years [...] on file Sexual Orientation Not on file Last Filed Vital Signs Vital Sign Reading Time Taken Comments Blood Pressure 100/64 05/26/2024 4:42 PM EDT Pulse - - Temperature - - Respiratory Rate - - Oxygen Saturation - - Inhaled Oxygen Concentration - - Weight 106 kg (234 lb 6.4 oz) 02/24/2019 12:00 P M EDT Height 167.6 cm (5' 6 ) 05/26/2019 12:00 PM EDT Body Mass Index 37.83 02/24/2019 12:00 PM EDT Plan of Treatment Upcoming Encounters Date Type Department Care Team (Late st Contact Info) Description 02/20/2025 3:45 PM EDT Office Visit [facility], [address] [place] [address] Abiel Gross MD [facility] [place] [address] Health Maintenance Due Date Last Done Comments Diabetes: Ophthalmology Exam 11/20/2019 Diabetes: Pedal Pulse Checked 11/20/2019 Diabetes: Sensory Foot Exam 11/20/2019 Diabetes: Visual Foot Exam 11/20/2019 Diabetes: Hemoglobin A1C 03/04/2025 025, 08/25/2024, 03/11/2024, Additional history exists Pneumococcal Vaccine: 65+ Years Completed 06/27/2023, 09/17/2019, 08/01/2018, Additional history exists Hepatitis B Vaccine Aged Out 10/01/2023, 04/27/2023, 03/30/2023 No longer eligible based on patient's age to complete this topic Influenza Vaccine Completed 07/28/2024, , 09/17/2019, Additional history exists Procedures Procedure Name Priority Date/Time Associated Diagnosis Comments HEMOGLOBIN A1C Routine 05/16/2021 4:21 PM EDT Other proteinuria Chronic kidney disease, stage 4 (severe) (HCC) Type 2 diabetes mellitus without complication (HCC) from Last 3 Months or Most Recently Relevant to Health Maintenance Results * (ABNORMAL) Hemoglobin A1c (05/16/2021 4:21 PM EDT) Hemoglobin A1C 9.2(H) (4.0-5.6) % [facility] Comment: MONITORING: In known diabetic patients, hemoglobin A1c targets should be discussed with health care provider. DIAGNOSTIC USE: ??The [place] Diabetes Association (ADA) and the World Health Organization (WHO) recommend the use of HbA1c to diagnose diabetes using a threshold of 6.5%. Patients who have an HbA1c between 5.7% and 6.4% are considered at increased risk for developing diabetes in the future. CAUTION: Falsely low HbA1c results may be observed in patients with hemolytic anemia, homozygous forms of abnormal hemoglobin (e.g. SS, CC, SC), , recent blood loss or hemoglobin F greater than 7%. Fructosamine may be used as an alternate test in these cases. REFERENCE: ADA: Standards of Medical Care in Diabetes 2020, The Journal of Clinical and Applied Research and Education Volume 43, Supplement 1 Testing performed or reported by [facility] Reference [employer], a Service of [facility], [address] [place] [id number] Geetha Meléndez MD, Project Director Blood (Blood, Venous) 05/16/2021 4:21 PM EDT 05/16/2021 4:26 PM EDT Abiel Gross MD LAB BLOOD ORDERABLES Final Result [facility] from Last 3 Months or Most Recently Relevant to Health Maintenance Insurance MEDICARE MEDICAID [place] Care Teams Head Transfer Clerk Relationship Specialty Start Date End Date Name, MD Royal [address] [place] [address] PCP - General 09/23/19
--- OUTSIDE RECORDS SUMMARY | 2024-12-30 12:09 | XMS_ITS | Encounter Summary ---
Author Organization [facility] [place], Address [address] [address] Phone Care Team Providers Care Property And Casualty Insurance Agent Name Role Phone Name, Royal BEATTY Primary Care Provider [phone] Reason for Visit * Reason Comments Med Refill Encounter Details Date Type Department Care Team ([facility] Contact Info) Description 11/06/2022 Refill [facility] [address] [place] [phone] Abiel Gross MD [address] [place] [address] [place] [address] Social History Tobacco Use Types [...] Upcoming Encounters Date Type Department Care Team ([facility] Contact Info) Description 02/20/2025 3:45 PM EDT Office Visit [facility], [address] [place] [address] Abiel Gross MD [address] [place] [address] [place] [address] documented as of this encounter Visit Diagnoses Not on filedocumented in this encounter Care Teams Property And Casualty Insurance Agent Relationship Specialty Start Date End Date Name, MD Royal [address] [place] [id number] PCP - General 09/23/19 documented as of this encounter
--- OUTSIDE RECORDS SUMMARY | 2024-12-30 12:09 | XMS_ITS | Encounter Summary ---
Author Organization [facility] [place], Address [address] [address] Phone Care Team Providers Care Door Fitter Name Role Phone Name, Royal BEATTY Primary Care Provider [phone] Reason for Visit * Reason Comments Med Refill Encounter Details Date Type Department Care Team ([facility] Contact Info) Description 03/25/2024 Refill [facility] [address] [place] [phone] Abiel Gross MD [address] [place] [address] [place] [address] Social History Tobacco Use Types [...] Upcoming Encounters Date Type Department Care Team ([facility] Contact Info) Description 02/20/2025 3:45 PM EDT Office Visit [facility], [address] [address] Abiel Gross MD [address] [place] [address] [place] [address] documented as of this encounter Visit Diagnoses Not on filedocumented in this encounter Care Teams Door Fitter Relationship Specialty Start Date End Date Name, MD Royal [address] [place] [address] PCP - General 09/23/19 documented as of this encounter
--- OUTSIDE RECORDS SUMMARY | 2024-12-30 12:09 | XMS_ITS | Encounter Summary ---
Author Organization [facility] Address [address] [address] Phone Care Team Providers Care Fire Alarm Inspector Name Role Phone Name, Royal BEATTY Primary Care Provider [phone] Reason for Visit * Reason Comments Med Refill Encounter Details Date Type Department Care Team ([facility] Contact Info) Description 03/24/2024 Refill [facility] [address] [place] [address] Abiel Gross MD [address] [place] [address] [place] [address] Social History Tobacco Use Types [...] Upcoming Encounters Date Type Department Care Team ([facility] Contact Info) Description 02/20/2025 3:45 PM EDT Office Visit [facility] [address] [place] [address] Abiel Gross MD [address] [place] [address] [place] [address] documented as of this encounter Visit Diagnoses Not on filedocumented in this encounter Care Teams Fire Alarm Inspector Relationship Specialty Start Date End Date Name, MD Royal [address] [place] [id number] PCP - General 09/23/19 documented as of this encounter
--- OUTSIDE RECORDS SUMMARY | 2024-12-30 12:09 | XMS_ITS | Encounter Summary ---
Author Organization [facility] [place], Address [address] [place] [phone] Phone Care Team Providers Care Planer Hand Name Role Phone Name, Royal BEATTY Primary Care Provider [phone] Encounter Details Date Type Department Care Team ([facility] Contact Info) Description 12/19/2022 Documentation Only [facility] [address] [place] [address] Polina Sarmiento [address] [place] [phone] Social History Tobacco Use Types Packs/Day Years [...] Upcoming Encounters Date Type Department Care Team ([facility] Contact Info) Description 02/20/2025 3:45 PM EDT Office Visit [facility] [address] [place] [address] Abiel Gross MD [address] [place] [address] [place] [phone] documented as of this encounter Visit Diagnoses Not on filedocumented in this encounter Care Teams Planer Hand Relationship Specialty Start Date End Date Name, MD Royal [address] [place] [phone] PCP - General 09/23/19 documented as of this encounter
== END 2024-12-30 10:51 | disposition home or self-care (01) ==
LOC: HO.RESP 10:50
PROVIDERS: PCP Internal Medicine Geriatric Medicine; Visit Provider Nurse Practitioner Family
DX: R06.09 Other forms of dyspnea (principal)
CPT/HCPCS: 94010; 94640; 94727; 94729

== ENCOUNTER → 2024-12-30 10:55 | Outpatient (BNV) | payer OTHER, SELFPAY | PROVIDERS: PCP Internal Medicine Geriatric Medicine; Visit Provider Hospitalist | DX: R06.09 Other forms of dyspnea (principal) | CPT/HCPCS: 94060; 94727; 94729 ==

== ENCOUNTER 2025-01-07 16:36 | Outpatient (REF) | payer OTHER, SELFPAY ==
--- NOTE | ~2025-01-07 | CT_ITS ---
CLINICAL HISTORY: J94.8 - Other specified pleural conditions: Plural scarring CT chest without contrast Comparison: CT/REG/[place]/SR - CT CHEST WO IV CON - 04/30/24 08:43 EDT Findings: Mild atherosclerotic calcifications of the thoracic aorta and marked coronary artery calcifications. The visualized thyroid and mediastinum are unremarkable. No significant change in the very mild amount of subpleural reticulations seen throughout all of the lobes, with a slightly upper lobe predominance. Some pleural-parenchymal thickening/scarring at the right lung apex and along the anterior right middle lobe, stable and likely related to post radiation changes. No suspicious pulmonary nodules. Punctate calcified granuloma anterior right upper lobe. No infectious airspace consolidation, pleural effusion, or pneumothorax. Partially imaged upper abdomen shows calcified granulomas at the falciform ligament. Multilevel degenerative changes of the spine. Stable advanced changes of the right sternoclavicular joint with superior subluxation of the clavicular head. Stable lucent lesion in the superior left manubrium. No new or suspicious osseous findings. IMPRESSION: Overall, finding is not significantly changed from the previous examination with very mild areas of subpleural reticulation seen throughout all the lobes, slightly more prominent in the upper lobes, as described. No new, worsening, or enlarging findings. Marked coronary artery calcifications. This document has been electronically signed by: Remedios Garcia MD on 01/08/2025 12:17:16
--- OUTSIDE RECORDS SUMMARY | 2025-01-07 16:39 | XMS_ITS | Encounter Summary ---
Author Organization [facility] [place], Address [address] [address] Phone Care Team Providers Care Conservation Policy Analyst Name Role Phone Name, Royal BEATTY Primary Care Provider [phone] Reason for Visit * Reason Comments Med Refill Encounter Details Date Type Department Care Team ([facility] Contact Info) Description 03/25/2024 Refill [facility] [address] [place] [phone] Abiel Gross MD [address] [place] [address] [place] [address] Social History Tobacco Use Types [...] Upcoming Encounters Date Type Department Care Team ([facility] Contact Info) Description 02/20/2025 3:45 PM EDT Office Visit [facility], [address] [place] [address] Abiel Gross MD [address] [place] [address] [place] [address] documented as of this encounter Visit Diagnoses Not on filedocumented in this encounter Care Teams Conservation Policy Analyst Relationship Specialty Start Date End Date Name, MD Royal [address] [place] [address] PCP - General 09/23/19 documented as of this encounter
--- OUTSIDE RECORDS SUMMARY | 2025-01-07 16:39 | XMS_ITS | Encounter Summary ---
Author Organization [facility] Address [address] [place] [address] [address] [place] [address] Care Team Providers Care Compliance Administrator Name Role Phone Name, Royal BEATTY Primary Care Provider [phone] Madhuri Becker PharmD Unavailable [phone] Encounter Details Date Type Department Care Team (Late Contact Info) Description 01/29/2023 Orders Only [facility] [address] [place] [address] Remedios Rider LPN Social History Tobacco Use Types Packs/Day Years Used Date Smoking Tobacco: Never Smokeless Tobacco: Never Depression Answer Date Recorded Patient Health Questionnaire-9 Score 0 11/09/2022 Depression Answer Date Recorded Patient Health Questionnaire-2 Score 0 11/09/2022 Comments Unknown Sex and Gender Information Value Date Recorded Sex Assigned at Female 09/18/2022 10:33 AM EDT Legal Sex Female 10:33 AM EDT Gender Identity Female 09/18/2022 10:33 AM EDT Sexual Orientation Straight 09/18/2022 10 :33 AM EDT documented as of this encounter Plan of Treatment Upcoming Encounters Date Type Department Care Team (Late Contact Info) Description 02/04/2025 9:30 AM EDT Medication Management [facility] [address] [place] [address] Madhuri Becker, PharmD [address] [place] [address] documented as of this encounter Visit Diagnoses Not on filedocumented in this encounter Additional Health Concerns Assessment Noted Time PHQ-9 Depression Total Score: 0 11/09/20 11:52 AM EST documented as of this encounter Care Teams Compliance Administrator Relationship Specialty Start Date End Date Name, MD Royal [address] [place] [address] PCP - General Family Medicine 06/16/19 Madhuri Becker PharmD [address] [place] [address] Pharmacist Internal Medicine 03/19/23 documented as of this encounter
--- OUTSIDE RECORDS SUMMARY | 2025-01-07 16:39 | XMS_ITS | Clinical Summary ---
Author Organization [employer] Address [address] [facility] [address] [place] [address] Care Team Providers Care Engineering And Scientific Programmer Name Role Phone Name, Royal BEATTY Primary Care Provider Madhuri Becker PharmD Unavailable Allergies No known active allergies Medications metoprolol tartrate (Lopressor) 25 MG tablet TAKE 1 TABLET BY MOUTH TWICE DAILY IN THE MORNING AND IN THE EVENING 11/08/20 22 Active cholecalciferol (Vitamin D-3) 25 MCG tablet Take 25 mcg by mouth in the morning. 10/17/20 22 Active furosemide (Lasix) 40 MG tablet take 1 tablet by oral route twice daily 05/01/20 22 Active Continuous Blood Gluc Rn Research (FreeStyle Zoraida 2 [place]) deviceIndication s:Type 2 diabetes mellitus with stage 4 chronic kidney disease, with long-term current use of insulin (CMS/[facility]) Use as directed 1 each 03/02/20 23 Active calcitriol (Rocaltrol) 0.25 MCG capsule Take 0.25 mcg by mouth Once per day. 03/23/20 23 Active acetaminophen (Tylenol 8 Hour) 650 MG ER tablet TAKE 1 TABLET BY MOUTH EVERY 8 HOURS NEEDED FOR MILD PAIN. DO NOT BREAK, CRUSH, DISSOLVE OR CHEW 07/11/20 23 Active TRUEplus Lancets 33G miscIndications: Type 2 diabetes mellitus with stage 4 chronic kidney disease, with long-term current use of insulin (CMS/HCC) Use to test blood sugar three times daily 100 each 11 11/30/19 24 Active glucose blood (FreeStyle Precision Balaji Test) test stripIndications :Type 2 diabetes mellitus with stage 4 chronic kidney disease, with long-term current use of insulin (CMS/HCC) Use to test blood sugar up to 3 times daily, as directed 100 each 11/30/19 24 Active glucose 4 g chewable tabletIndication s:Type 2 diabetes mellitus with stage 4 chronic kidney disease, with long-term current use of insulin ([facility]) Chew 4 tablets (16 g) if needed for low blood sugar. (<70 mg/dL). Recheck BG after 15 minutes and repeat treatment as needed & as directed. 20 tablet 5 06/27/20 24 025 Active losartan (Cozaar) 100 MG tablet TAKE 1 TABLET BY MOUTH EVERY MORNING 30 tablet 5 08/07/20 24 Active albuterol (Ventolin HFA) 108 (90 Base) MCG/ACT inhalerIndicatio ns:Viral URI Inhale 2 puffs every 6 (six) hours if needed for wheezing or shortness of breath. 18 g 1 08/14/20 24 Active insulin degludec (Tresiba FlexTouch) 100 UNIT/ML injectionIndicat ions:Type 2 diabetes mellitus with stage 4 chronic kidney disease, with long-term current use of insulin ([facility]) Inject 26 units subQ once daily in the morning. 15 mL 2 08/25/20 24 Active gabapentin (Neurontin) 100 MG capsule TAKE 1 CAPSULE BY MOUTH AT BEDTIME 30 capsule 09/08/20 24 Active insulin pen needle (BD Pen Needle Rachele U/F) 32G x 4 mm miscIndications: Type 2 diabetes mellitus with stage 4 chronic kidney disease, with long-term current use of insulin ([facility]) USE UP TO THREE TIMES DAILY FOR INSULIN 100 each 09/11/20 24 Active Continuous Glucose Sensor (FreeStyle Zoraida 2 Sensor) miscIndications: Type 2 diabetes mellitus with stage 4 chronic kidney disease, with long-term current use of insulin ([facility]) TEST BLOOD SUGAR DIRECTED. CHANGE EVERY 14 DAYS. 2 each 09/23/20 24 Active calcium carbonate 1500 (600 Ca) MG tabletIndication s:CKD stage 4 due to type 2 diabetes mellitus ([facility]) TAKE 1 TABLET BY MOUTH TWICE DAILY IN THE MORNING AND IN THE EVENING WITH FOOD 180 tablet 3 10/07/20 24 Active omeprazole (PriLOSEC) [address] capsule TAKE 1 CAPSULE BY MOUTH EVERY MORNING 30-60 MINUTES BEFORE A MEAL 90 capsule 1 10/09/20 24 Active insulin aspart (NovoLOG FLEXPEN) 100 UNIT/ML penIndications:T ype 2 diabetes mellitus with stage 4 chronic kidney disease, with long-term current use of insulin (CMS/[facility]) Inject subQ with meals; 8 units with lunch & 6 units with dinner. 11/06/20 24 Active amLODIPine (Norvasc) 2.5 MG tabletIndication s:Essential hypertension TAKE 1 TABLET BY MOUTH EVERY MORNING 90 tablet 1 12/01/19 25 Active Tirzepatide (Mounjaro) 7.5 MG/0.5ML solution auto-injectorInd ications:Type 2 diabetes mellitus with stage 4 chronic kidney disease, with long-term current use of insulin (CMS/[facility]) Inject 7.5 mg under the skin 1 (one) time per week. 2 mL 12/04/19 25 Active diphenhydrAMINE (Pauline-Dryl) 25 MG tabletIndication s:Generalized pruritus TAKE 1 TABLET BY MOUTH AT BEDTIME NEEDED FOR SLEEP 30 tablet 5 12/26/19 25 Active Aspirin Low Dose 81 MG EC tabletIndication s:Essential hypertension TAKE 1 TABLET BY MOUTH EVERY EVENING 90 tablet 3 12/30/19 25 Active levothyroxine (Synthroid, Levoxyl) 25 MCG tabletIndication s:Essential hypertension TAKE 1 TABLET BY MOUTH EVERY MORNING 90 tablet 3 12/30/19 25 Active rosuvastatin (Crestor) 10 MG tabletIndication s:Essential hypertension TAKE 1 TABLET BY MOUTH EVERY MORNING 30 tablet 01/02/20 25 Active levothyroxine (Synthroid, Levoxyl) 25 MCG tabletIndication s:Essential hypertension TAKE 1 TABLET BY MOUTH EVERY MORNING 90 tablet 3 01/23/20 24 025 Discontinued Aspirin Low Dose 81 MG EC tabletIndication s:Essential hypertension TAKE 1 TABLET BY MOUTH EVERY EVENING 90 tablet 3 01/23/20 24 025 Discontinued rosuvastatin (Crestor) 10 MG tabletIndication s:Essential hypertension TAKE 1 TABLET BY MOUTH EVERY MORNING 90 tablet 3 01/25/20 24 025 Discontinued diphenhydrAMINE (Pauline-Dryl) 25 MG tabletIndication s:Generalized pruritus TAKE 1 TABLET BY MOUTH EVERY EVENING NEEDED FOR SLEEP 30 tablet 5 06/10/20 24 025 Discontinued Active Problems Problem Noted Date Diagnosed Date NPDR (nonproliferative diabetic retinopathy) 12/2023 Diabetic polyneuropathy asso ciated with type 2 diabetes mellitus 08/31/2023 Anemia in chronic kidney disease 03/23/2023 Secondary hyperparathyroidism 03/23/2023 History of right mastectomy 11/01/2022 History of 2019 novel coronavirus disease (COVID -19) 11/01/2022 Pneumonia due to COVID-19 virus 11/01/2022 Tubular adenoma 11/01/2022 Vascular insufficiency 11/01/2022 Type 2 diabetes mellitus wit h chronic kidney disease, with long-term current use of insulin 11/01/2022 Overview (11/01/2022): Per previous EHR History of malignant neoplasm of breast 11/01/20 22 Proteinuria 11/20/2019 Type 2 diabetes mellitus without complication 08/31/2023 Polyneuropathy 04/24/2019 Dry eyes 11/01/2018 Trigger finger 11/01/2018 Type 2 diabetes mellitus 11/01/2018 Adnexal fullness 08/01/2018 Overview (06/04/2023): Finding of pelvis- adnexal fullness per previous EHR Chronic cough 04/30/2018 Generalized pruritus 04/30/2018 Microscopic hematuria 04/30/2018 Palpitations 04/30/2018 Mitral valve stenosis 03/31/2018 Chronic kidney disease, stage 4 (severe) 018 Acquired hypothyroidism 02/11/2018 Diabetic retinopathy associa yareli with type 2 diabetes mellitus 02/11/2018 Essential hypertension 02/11/2018 Hyperlipidemia 02/11/2018 Osteoporosis 02/11/2018 Proteinuria of undiagnosed cause 02/11/2018 Encounters Date Type Department Care Team Description 01/02/2025 Refill [facility] [address] [place] [address] Name, MD Royal Essential hypertension 01/01/2025 Telephone [facility] [address] [place] [address] NameRoyal MD Appointment Request 12/30/2024 Telephone [facility] [address] [place] [address] Karon Esteban MA chartprep 12/30/2024 Refill [facility] [address] [place] [address] NameRoyal MD Essential hypertension 12/26/2024 Refill [facility] [address] [place] [address] Name, MD Royal Generalized pruritus 12/04/2024 Travel 11/29/2024 Refill [facility] [address] [place] [address] NameRoyal MD Essential hypertension 11/03/2024 Telephone [facility] [address] [place] [address] Maikel Casiano MA feb recall 11/03/2024 Telephone [facility] [address] [place] [address] NameRoyal MD Appointment Request 10/08/2024 Refill [facility] [address] [place], [place] [phone] Remedios Marquis DO from Last 3 Months Immunizations Name Administration Dates Next Due Hep B, adult 10/01/2023,04/27/2023,03/30/2023 Influenza High-dose Quadriva lent Preservative Free 08/31/2023,09/20/2021 Influenza injectable quadriv alent IIV4 with preservative 11/09/2022 Influenza injectable quadriv alent preservative free 11/01/2018 Influenza, High Dose Seasona l, Preservative Free 07/28/2024,09/17/2019 Moderna Covid-19 Vaccine 6+ Bivalent 03/30/2023 Pfizer Covid-19 Vaccine 12+ 08/25/2024 Pneumococcal Conjugate PCV 13 08/01/2018 Pneumococcal Conjugate PCV 20 06/27/2023 Pneumococcal Polysaccharide PPSV23 09/17/2019, RSV Bivalent 07/28/2024 Tdap 01/19/2020 Zoster, Recombinant 05/28/2023,03/19/2023 Zoster, live 08/01/2018 Social History Tobacco Use Types Packs/Day Years Used Date Smoking Tobacco: Former Cigarettes Smokeless Tobacco: Never Tobacco Cessation:Counseling Given: Not Answered Alcohol Use Standard Drinks/Week Comments Never 0 (1 standard drink = 0.6 oz pur e alcohol) Alcohol Answer Date Recorded Frequency of Alcohol Consumption Not on file 06/10/2024 Average Number of Drinks Not on file 024 Frequency of Binge Drinking Not on file 05/20 Score 0 06/10/2024 Depression Answer Date Recorded Patient Health Questionnaire-9 Score 0 03/11/2024 Patient Health Questionnaire-9 Score 0 03/11/2024 Last PHQ-9: Questionnaire Data Not on file 0 03/11/2024 Housing Stability Answer Date Recorded What is your housing situation today? I have bernie hayes 03/04/[address] you li ve. Do you have problems with any of the following? None of the above 03/04/2024 Food Insecurity Answer Date Recorded Within the past 12 months, y ou worried that your food would run out before you got money to buy more: Never True 03/04/2024 Within the past 12 months,th e food you bought just didn't last and you didn't have enough money to get more: Never True Transportation Answer Date Recorded In the past 12 months, has l ack of transportation kept you from medical appts, meetings, work or from getting things needed for daily living? No 03/04/2024 Utilities Answer Date Recorded In the past 12 months, has t he electric, gas, oil or water company threatened to shut off services in your home? No 03/04/2024 Depression Answer Date Recorded Patient Health Questionnaire-2 Score 0 03/11/2024 Comments Unknown Sex and Gender Information Value Date Recorded Sex Assigned at Female 09/18/2022 10:33 AM EDT Legal Sex Female 10:33 AM EDT Gender Identity Female 09/18/2022 10:33 AM EDT Sexual Orientation Straight 09/18/2022 10 :33 AM EDT Last Filed Vital Signs Vital Sign Reading Time Taken Comments Blood Pressure 112/70 08/14/2024 10:02 AM EDT Pulse 80 08/14/2024 10:02 AM EDT Temperature 36.4 ??C (97.5 ??F) 08/14/2024 10:02 AM E DT Respiratory Rate 20 08/14/2024 10:02 AM EDT Oxygen Saturation 95% 08/14/2024 10:02 AM EDT Inhaled Oxygen Concentration - - Weight 109 kg (239 lb 12.8 oz) 08/14/2024 10:02 AM EDT Height 167 cm (5' 5.75 ) 06/10/2024 3:14 PM EDT Body Mass Index 39 06/10/2024 3:14 PM EDT Plan of Treatment Upcoming Encounters Date Type Department Care Team (Late st Contact Info) Description 02/04/2025 9:30 AM EDT Medication Management [facility] [address] [place] [address] Madhuri Becker, PharmD [address] [place] [address] Health Maintenance Due Date Last Done Comments Hepatitis C Screening 1963 Diabetes: Foot Exam 08/31/2024 08/31/2023, 08/31/2023, 08/31/2023, Additional history exists Diabetes: Hemoglobin A1C 03/04/2025 025, 08/25/2024, 06/02/2024, Additional history exists SDOH Screening 03/04/2025 03/04/2024 Depression Screening 03/11/2025 03/11/2024, 03/11/20 24 Lipid Panel 05/15/2025 05/15/2024, 07/2023, 06/27/2022 Alcohol/Substance Use Screening 06/10/2025 06/10/2024 Eye Exam 07/24/2025 07/24/2024, 03/2024, 07/24/2024, Additional history exists Tobacco Screening 08/04/2025 08/04/2024 Mammogram 08/29/2025 08/29/2024, 02/2023, 08/22/2023, Additional history exists DTaP/Tdap/Td Vaccines (2 - Td or Tdap) 01/18/2030 01/19/2020 Zoster Vaccines Completed 05/28/2023, 11/2022, 08/01/2018 Pneumococcal Vaccine: 50+ Years Completed 06/27/2023, 09/17/2019, 08/01/2018, Additional history exists Hepatitis B Vaccines Completed 10/01/2023, 04/27/2023, 03/30/2023 Influenza Vaccine Completed 07/28/2024, , 11/09/2022, Additional history exists RSV Patients and Patients Aged 60 years or older Completed 07/28/2024 COVID-19 Vaccine Completed 08/25/2024, 10/2023, 02/07/2022, Additional history exists HIB Vaccines Aged Out No longer eligi ble based on patient's age to complete this topic HPV Vaccines Aged Out No longer eligi ble based on patient's age to complete this topic Hepatitis A Vaccines Aged Out No long er eligible based on patient's age to complete this topic IPV Vaccines Aged Out No longer eligi ble based on patient's age to complete this topic Meningococcal Vaccine Aged Out No derik justin eligible based on patient's age to complete this topic RSV under 20 months Aged Out No longe r eligible based on patient's age to complete this topic Rotavirus Vaccines Aged Out No longer eligible based on patient's age to complete this topic Goals Goal Patient Goal Type Associated Problems Recent Progress Patient-Stated? Author Hemoglobin A1c < 8 Result Component 9.5( 10:08 AM EST) No Madhuri Becker, PharmTy Record your blood sugar as directed Result Component No Madhuri Becker, PharmD Note: Use CGM, as instructed, ensuring sensor is scanned at least Q8hr. Check BG via fingerstick as needed & as directed. Procedures Procedure Name Priority Date/Time Associated Diagnosis Comments POCT GLYCATED HEMOGLOBIN, TOTAL Routine 12/04/2024 10:08 AM EST Type 2 diabetes mellitus with stage 4 chronic kidney disease, with long-term current use of insulin ([facility]) BI MAMMOGRAM SCREENING TOMOSYNTHESIS LEFT Routine 08/29/2024 9:45 AM EDT LIPID PANEL, STANDARD Routine 05/15/2024 9:10 AM EDT Type 2 diabetes mellitus with stage 4 chronic kidney disease, with long-term current use of insulin ([facility]/HCC) Acute non-recurrent maxillary sinusitis Chronic kidney disease, stage 4 (severe) (CMS/[facility]) from Last 3 Months or Most Recently Relevant to Health Maintenance Results * (ABNORMAL) POCT HGB A1C (12/04/2024 10:08 AM EST) Hemoglobin A1C 9.5(A) 4.0 - 6.0 % QC Media Lot # [id number] Blood 12/04/2024 10:0 8 AM EST us Royal Name MD POINT OF CARE TEST ENTER/EDIT OR DERABLES Final Result * BI Mammogram Screening Tomosynthesis Left (08/29/2024 9:45 AM EDT) Anatomical Region Laterality Modality Breast Left Mammography 08/29/2024 9:45 AM EDT Narrative 09/09/2024 4:59 PM EDT ? [facility] ? [address] ?[place] [address] ? Mammography Report ? Signed ? Patient: Luz Elena Montgomery ?MR#: [id number] ?? [id number] ? : 1945 ?Acct:[id number] ? Age/Sex: 79 / F ?ADM Date: //24 ? Loc: HO.MAMMO ? Attending Dr: Royal Name MD ? Ordering Physician: Name,Royal MD ?Results: 1Negative ? Date of Service: 08/29/24 ?Follow Up: 1 Year From Orig ?? inal Mammogram ? Procedure(s): MM tomosynthesis screening LT ?? Accession Number(s): [id number] ? cc: Name,Royal BEATTY ? EXAMINATION: ?? MM SCREENING DIGITAL BREAST TOMOSYNTHESIS, BILATERAL ? CLINICAL INFORMATION: ? Screening. Asymptomatic. ??Right mastectomy. ? COMPARISON: ?? Mammography: This study is compared with prior exams dating back to ? TECHNIQUE: ?? Digital breast tomosynthesis is performed in both the craniocaudal and ?? mediolateral oblique views along with computer-aided detection (CAD). ? Synthesized 2D images are generated from the tomosynthesis. ? FINDINGS: ?? There are scattered areas of fibroglandular density (ACR BI-RADS breast ?? composition Category b). ? There are no significant masses, abnormal calcifications, or other ?? abnormalities. ? MM/MM tomosynthesis screening LT ?? IMPRESSION: ?? No mammographic evidence of malignancy. ? ASSESSMENT: ? BI-RADS BI-RADS 1 - Negative ? RECOMMENDATION: ?? Routine annual mammography screening. ? 1 year F/U ? This examination should not preclude the clinical evaluation of a ?? suspicious palpable abnormality. ? This patient's information was entered into a reminder system with a ?? target due date for their next mammogram. ? Electronically signed by: ??Jane Douglas DO ??09/09/2024 04:57 PM EDT ? Dictated By: ?Jane Douglas DO ? Signed By: ?<Electronically signed by Jane Douglas DO in OV> ? 09/09/24 1657 ? DD/ 0945 ? TD/TT: 08/29/24 0955 ? Hydrometer Calibrator: ? Procedure Note Lane, Image - 09/09/2024 [facility] [address] [place] [address] [place] [address] Mammography Report Signed Patient: Luz Elena Montgomery AMR#: [id number] : 6Acct:[id number] Age/Sex: 79 / FADM Date: 08/29/24 Loc: [facility] Attending Dr: Royal Pitt MD Ordering Physician: Name,Royal MDResults: 1Negative Date of Service: 08/29/24Follow Up: 1 Year From Orig inal Mammogram Procedure(s): MM tomosynthesis screening LT Accession Number(s): [id number] cc: Royal Pitt MD EXAMINATION: MM SCREENING DIGITAL BREAST TOMOSYNTHESIS, BILATERAL CLINICAL INFORMATION: Screening. Asymptomatic. Right mastectomy. COMPARISON: Mammography: This study is compared with prior exams dating back to TECHNIQUE: Digital breast tomosynthesis is performed in both the craniocaudal and mediolateral oblique views along with computer-aided detection (CAD). Synthesized 2D images are generated from the tomosynthesis. FINDINGS: There are scattered areas of fibroglandular density (ACR BI-RADS breast composition Category b). There are no significant masses, abnormal calcifications, or other abnormalities. MM/MM tomosynthesis screening LT IMPRESSION: No mammographic evidence of malignancy. ASSESSMENT: BI-RADS BI-RADS 1 - Negative RECOMMENDATION: Routine annual mammography screening. 1 year F/U This examination should not preclude the clinical evaluation of a suspicious palpable abnormality. This patient's information was entered into a reminder system with a target due date for their next mammogram. Electronically signed by: Jane Douglas DO 09/09/2024 04:57 PM EDT Dictated By: Jane Douglas DO Signed By: <Electronically signed by Jane Douglas DO in OV> 09/09/24 1657 DD/ 0945 TD/TT: 08/29/24 0955 Hydrometer Calibrator: Royal Pitt MD IM BI PROCEDURES Final Result * (ABNORMAL) Lipid Panel, Standard (05/15/2024 9:10 AM EDT) Triglycerides 170(H) <150 mg/dL [facility] Comment:Desirable Triglyceri de: less than 150 mg/dLBorderline High Triglyceride 150-199 mg/dLHigh Triglyceride: 200-499 mg/dLVery High Triglyceride: greater than or equal to 5OO mg/dL Cholesterol 122 <200 mg/dL [facility] Comment:Desirable Cholestero l: less than 200 mg/dLBorderline High Cholesterol: 200-239 mg/dLHigh Cholesterol: greater than 239 mg/dL LDL Cholesterol Calculated 48 <100 mg/dL [facility] Comment:Desirable LDL: less than 100 mg/dLNear Optimal/Above Optimal LDL: 110- 129 mg/dLBorderline High LDL: 130-159 mg/dLHigh LDL: 160-189 mg/dLVery High LDL: greater than or equal to 190 mg/dL HDL Cholesterol 40(L) >40 mg/dL [facility] Comment:Desirable HDL: great er than 40 mg/dL Note: This HDL assay may give artificially low results in patients with liver disease. Blood Venous blood specimen / Unknown 05/15/2024 9:10 AM EDT 05/15/2024 11:17 AM EDT us Royal Pitt MD LAB BLOOD ORDERABLES Final Resul t [facility] [address] [place] [phone] from Last 3 Months or Most Recently Relevant to Health Maintenance Insurance [facility] [employer] Care Teams Engineering And Scientific Programmer Relationship Specialty Start Date End Date Name, MD Royal [address] [place] [phone] PCP - General Family Medicine 06/16/19 Madhuri Becker PharmD [address] [place] [phone] Pharmacist Internal Medicine 03/19/23
--- OUTSIDE RECORDS SUMMARY | 2025-01-07 16:39 | XMS_ITS | Encounter Summary ---
Author Organization [facility], Address [address] [address] Phone Care Team Providers Care Bi Tester Name Role Phone Name, Royal BEATTY Primary Care Provider [phone] Encounter Details Date Type Department Care Team (Late Contact Info) Description 01/18/2022 Documentation Only [facility] [address] [place] [address] Abiel Gross MD [address] [place] [address] [place] [address] Social History Tobacco Use Types [...] [facility] [address] [place] [address] Abiel Gross MD [address] [place] [address] [place] [phone] documented as of this encounter Visit Diagnoses Not on filedocumented in this encounter Care Teams Bi Tester Relationship Specialty Start Date End Date Name, MD Royal [address] [place] [id number] PCP - General 09/23/19 documented as of this encounter
--- OUTSIDE RECORDS SUMMARY | 2025-01-07 16:39 | XMS_ITS | Encounter Summary ---
Author Organization [employer] Address [address] [facility] [address] [place] [address] Care Team Providers Care Packing Tractor Machine Operator Name Role Phone Name, Royal BEATTY Primary Care Provider [phone] Madhuri Becker PharmD Unavailable [phone] Reason for Visit * Reason Comments Med Refill Encounter Details Date Type Department Care Team ([facility] Contact Info) Description 01/02/2025 Refill [facility] [address] [place] [address] Name, MD Royal [address] [place] [address] Essential hypertension Social History Tobacco Use Types Packs/Day Years Used Date Smoking Tobacco: Former Cigarettes Smokeless Tobacco: Never Alcohol Use Standard Drinks/Week Comments Never 0 [...] Description 02/04/2025 9:30 AM EDT Medication Management [facility] [address] [place] [address] PalomaiaMadhuri, PharmD [address] [place] [address] documented as of this encounter Goals Goal Patient Goal Type Associated Problems Recent Progress Patient-Stated? Author Hemoglobin A1c < 8 Result Component 9.5( 10:08 AM EST) No Puia Madhuri, PharmD Record your blood sugar as directed Result Component No Puia Madhuri, PharmD Note: Use CGM, as instructed, ensuring sensor is scanned at least Q8hr. Check BG via fingerstick as needed & as directed. documented as of this encounter Visit Diagnoses Diagnosis Essential hypertension Unspecified essential hypertension documented in this encounter Additional Health Concerns Assessment Noted Time PHQ-9 Depression Total Score: 0 03/11/20 24 2:52 PM EDT documented as of this encounter Care Teams Packing Tractor Machine Operator Relationship Specialty Start Date End Date Name, MD Royal [address] [place] [id number] PCP - General Family Medicine 06/16/19 Madhuri Becker, AlissonD [address] [place] [phone] Pharmacist Internal Medicine 03/19/23 documented as of this encounter
--- OUTSIDE RECORDS SUMMARY | 2025-01-07 16:39 | XMS_ITS | Encounter Summary ---
Author Organization [employer] Address 75 [facility] 7t [place] [address] Care Team Providers Care Glazier Structural Glass Name Role Phone Name, Royal BEATTY Primary Care Provider [phone] Madhuri Becker PharmD Unavailable [phone] Reason for Visit * Reason Comments Med Refill Encounter Details Date Type Department Care Team ([facility] Contact Info) Description 12/30/2024 Refill [facility] [address] [place] [address] Name, MD Royal 230 [place] [address] Essential hypertension Social History Tobacco Use Types [...] Description 02/04/2025 9:30 AM EDT Medication Management [facility] [address] [place] [address] PalomaiaMadhuri, PharmD 230 [place] [address] documented as of this encounter Goals Goal [...] documented as of this encounter Care Teams Glazier Structural Glass Relationship Specialty Start Date End Date Name, MD Royal [address] [place] [address] PCP - General Family Medicine 06/16/19 Madhuri Becker, AlissonD [address] [place] [phone] Pharmacist Internal Medicine 03/19/23 documented as of this encounter
--- OUTSIDE RECORDS SUMMARY | 2025-01-07 16:39 | XMS_ITS | Encounter Summary ---
Author Organization [employer] Address 75 [facility] 7t [place] [address] Care Team Providers Care Bottle Packing Machine Cleaner Name Role Phone Name, Royal BEATTY Primary Care Provider [phone] Madhuri Becker PharmD Unavailable Reason for Visit * Reason Comments Med Refill Encounter Details Date Type Department Care Team ([facility] Contact Info) Description 04/25/[address] [facility] MEDICINE [address] [place] [address] Madhuri Becker, PharmD 230 [place] [address] Type 2 diabetes mellitus with stage 4 chronic kidney disease, with long-term current use of insulin ([facility]) Social History Tobacco Use Types Packs/Day Years Used Date Smoking Tobacco: Former Cigarettes Smokeless Tobacco: Never Alcohol Use Standard Drinks/Week Comments Never 0 (1 standard drink = 0.6 oz pur e alcohol) Depression Answer Date Recorded Patient Health Questionnaire-9 [...] Description 02/04/2025 9:30 AM EDT Medication Management [facility] MED[facility]INE [address] [place] [address] Madhuri Becker PharmD [address] [place] [address] documented as of this encounter Goals Goal Patient Goal Type Associated Problems Recent Progress Patient-Stated? Author Hemoglobin A1c < 8 Result Component 9.5( 10:08 AM EST) No Madhuri Becker PharmTy Record your blood sugar as directed Result Component No Madhuri Becker PharmD Note: Use CGM, as instructed, ensuring sensor is scanned at least Q8hr. Check BG via fingerstick as needed & as directed. documented as of this encounter Visit Diagnoses Diagnosis Type 2 diabetes mellitus with stage 4 chronic kidney disease, with long-term current use of insulin ([facility]) documented in this encounter Additional Health Concerns Assessment Noted Time PHQ-9 Depression Total Score: 0 03/11/20 24 2:52 PM EDT documented as of this encounter Care Teams Bottle Packing Machine Cleaner Relationship Specialty Start Date End Date Name, MD Royal [address] [place] [address] PCP - General Family Medicine 06/16/19 Madhuri Becker, AlissonD [address] [place] [address] Pharmacist Internal Medicine 03/19/23 documented as of this encounter
--- OUTSIDE RECORDS SUMMARY | 2025-01-07 16:39 | XMS_ITS | Encounter Summary ---
Author Organization [employer] Address 75 [facility] 7t [place] [address] Care Team Providers Care Respite Provider Name Role Phone Name, Royal BEATTY Primary Care Provider [phone] Madhuri Becker PharmD Unavailable [phone] Reason for Visit * Reason Onset Date Comments Appointment Request 01/01/2025 Encounter Details Date Type Department Care Team ([facility] Contact Info) Description 01/01/2025 Telephone [facility] MEDICINE [address] [place] [address] Name, MD Royal [address] [place] [address] Appointment Request Social History Tobacco Use Types Packs/Day Years [...] AM EDT documented as of this encounter Miscellaneous Notes * Telephone Encounter - Memo Herman - 01/01/2025 8:11 AM EST Tc from pt COPY OPERATOR requesting to r/s Pt apt for 01/01/25. Contact pt COPY OPERATOR at [phone] documented in this encounter Plan of Treatment Upcoming Encounters Date Type Department Care Team ([facility] st Contact Info) Description 02/04/2025 9:30 AM EDT Medication Management [facility] MEDICINE [address] [place] [address] Madhuri Becker PharmD [address] [place] [address] documented as of this encounter Goals Goal Patient Goal Type Associated Problems Recent Progress Patient-Stated? Author Hemoglobin A1c < 8 Result Component 9.5( 10:08 AM EST) No Humberto Beckeryssa, PharmD Record your blood sugar as directed Result Component No Humberto Beckeryssa, PharmD Note: Use CGM, as instructed, ensuring sensor is scanned at least Q8hr. Check BG via fingerstick as needed & as directed. documented as of this encounter Visit Diagnoses Not on filedocumented in this encounter Additional Health Concerns Assessment Noted Time PHQ-9 Depression Total Score: 0 03/11/20 24 2:52 PM EDT documented as of this encounter Care Teams Respite Provider Relationship Specialty Start Date End Date Name, MD Royal [address] [place] [address] PCP - General Family Medicine 06/16/19 Madhuri Becker, Jazzmine [address] [place] [address] Pharmacist Internal Medicine 03/19/23 documented as of this encounter
--- OUTSIDE RECORDS SUMMARY | 2025-01-07 16:39 | XMS_ITS | Encounter Summary ---
Author Organization [facility], Address [address] [address] Phone Care Team Providers Care Family Nurse Name Role Phone Name, Royal BEATTY Primary Care Provider [phone] Encounter Details Date Type Department Care Team ([facility] Contact Info) Description 04/09/2023 Documentation Only [facility] [address] [place] [address] [place] [address] [place] [phone] Social History Tobacco Use Types Packs/Day Years [...] Care Team ([facility] Contact Info) Description 02/20/2025 3:45 PM EDT Office Visit [facility] [address] [place] [address] Abiel Gross MD [address] [place] [address] [place] [phone] documented as of this encounter Visit Diagnoses Not on filedocumented in this encounter Care Teams Family Nurse Relationship Specialty Start Date End Date Name, MD Royal [address] [place] [address] PCP - General 09/23/19 documented as of this encounter
--- OUTSIDE RECORDS SUMMARY | 2025-01-07 16:39 | XMS_ITS | Clinical Summary ---
Author Organization [facility], Address [address] [place] [address] [place] [address] Phone Care Team Providers Care Talent Acquisition Manager Name Role Phone Name, Royal BEATTY Primary Care Provider [phone] Allergies No known active allergies Medications acetaminophen [...] Office Communication [facility] [address] [place] [address] Josi [place] from Last 3 Months Immunizations Name Administration [...] Office Visit [facility] [address] [place] [place] [address] Abiel Gross MD [address] [place] [address] Health Maintenance Due Date Last [...] PM EDT) Hemoglobin A1C 9.2(H) (4.0-5.6) % [facility] Comment: MONITORING: In known diabetic patients, hemoglobin A1c targets should be discussed with health care provider. DIAGNOSTIC USE: ??The Citizen Of [place] Diabetes Association (ADA) and the World Health [...] Supplement 1 Testing performed or reported by [facility] [employer], a Service of [facility], [address] [place] [address] Geetha Meléndez MD, Block Captain Blood (Blood, Venous) 05/16/2021 4:21 PM EDT 05/16/2021 4:26 PM EDT Abiel Gross MD LAB BLOOD ORDERABLES Final Result [facility] from Last 3 Months or Most Recently Relevant to Health Maintenance Insurance MEDICARE MEDICAID [place] Care Teams Talent Acquisition Manager Relationship Specialty Start Date End Date Name, MD Royal [address] [place] [address] PCP - General 09/23/19
--- OUTSIDE RECORDS SUMMARY | 2025-01-07 16:39 | XMS_ITS | Encounter Summary ---
Author Organization [employer] Address 75 [facility] 7t [place] [address] Care Team Providers Care Commercial Glazier Name Role Phone Name, Royal BEATTY Primary Care Provider [phone] Madhuri Becker PharmD Unavailable [phone] Reason for Visit * Reason Comments Med Refill Encounter Details Date Type Department Care Team ([facility] Contact Info) Description 05/19/2024 Refill [facility]INE [address] [place] [address] Maryan Vasquez MD [address] [place] [address] Social History Tobacco Use Types Packs/Day Years [...] Description 02/04/2025 9:30 AM EDT Medication Management [facility]INE 230 [place], [place] [phone] Madhuri Becker PharmD [address] [place], [place] [phone] documented as of this encounter Goals Goal Patient Goal Type Associated Problems Recent Progress Patient-Stated? Author Hemoglobin A1c < 8 Result Component 9.5( 10:08 AM EST) No Madhuri Becker PharmD Record your blood sugar as directed [...] documented as of this encounter Care Teams Commercial Glazier Relationship Specialty Start Date End Date Name, MD Royal [address] [place] [address] [phone] PCP - General Family Medicine 06/16/19 Madhuri Becker PharmD [address] [place] [address] [phone] Pharmacist Internal Medicine 03/19/23 documented as of this encounter
--- OUTSIDE RECORDS SUMMARY | 2025-01-07 16:39 | XMS_ITS | Encounter Summary ---
Author Organization [employer] Address 75 [facility] 7t [place] [address] Care Team Providers Care Package Drier Name Role Phone Name, Royal BEATTY Primary Care Provider [phone] Madhuri Becker PharmD Unavailable [phone] Reason for Visit * Reason Onset Date Comments chartprep 12/30/2024 Encounter Details Date Type Department Care Team (Late st Contact Info) Description 12/30/2024 Telephone [facility]ICINE [address] [place] [address] Karon Esteban [place] chartprep Social History Tobacco Use Types Packs/Day Years [...] your housing situation today? I have bernie abigail 03/04/[address] you li [...] encounter Miscellaneous Notes * Telephone Encounter - Karon Esteban [place] - 12/30/2024 9:09 AM EST Chart Prep Labs: done except TSH Images: done Vaccines due: yes Referrals: complete Screenings: done Overdue care gaps: LORAINE-7 documented in this encounter Plan of Treatment Upcoming Encounters Date Type Department Care Team (Late st Contact Info) Description 02/04/2025 9:30 AM EDT Medication Management [facility]ICINE [address] [place] [address] Madhuri Becker, PharmD [address] [place] [address] documented as of this encounter Goals Goal Patient Goal Type Associated Problems Recent Progress Patient-Stated? Author Hemoglobin A1c < 8 Result Component 9.5( 10:08 AM EST) No Puia, Madhuri, PharmD Record your blood sugar as [...] documented as of this encounter Care Teams Package Drier Relationship Specialty Start Date End Date Name, MD Royal [address] [place] [address] PCP - General Family Medicine 06/16/19 Madhuri Becker PharmD [address] [place] [address] Pharmacist Internal Medicine 03/19/23 documented as of this encounter
--- OUTSIDE RECORDS SUMMARY | 2025-01-07 16:39 | XMS_ITS | Encounter Summary ---
Author Organization [facility] [place], Address [address] [place] [phone] Phone Care Team Providers Care Nursing Home Assistant Administrator Name Role Phone Name, Royal BEATTY Primary Care Provider [phone] Encounter Details Date Type Department Care Team ([facility] Contact Info) Description 12/19/2022 Documentation Only [facility] [address] [place] [address] Polina Sarmiento [address] [place] [phone] Social History Tobacco Use Types Packs/Day [...] Visit [facility] [address] [facility] [place] [address] Abiel Gross MD [address] [place] [address] [place] [phone] documented as of this encounter Visit Diagnoses Not on filedocumented in this encounter Care Teams Nursing Home Assistant Administrator Relationship Specialty Start Date End Date Name, MD Royal [address] [place] [address] PCP - General 09/23/19 documented as of this encounter
--- OUTSIDE RECORDS SUMMARY | 2025-01-07 16:39 | XMS_ITS | Encounter Summary ---
Author Organization [facility], Address [address] [address] Phone Care Team Providers Care Cyber Intelligence Analyst Name Role Phone Name, Royal BEATTY Primary Care Provider Reason for Visit * Reason Comments Med Refill Encounter Details Date Type Department Care Team ([facility] Contact Info) Description 11/06/2022 Refill [facility] [address] [place] [phone] Abiel Gross MD [address] [place] [address] [place] [address] Social History Tobacco Use Types [...] Upcoming Encounters Date Type Department Care Team ([facility] Contact Info) Description 02/20/2025 3:45 PM EDT Office Visit [facility], [address] [place] [address] Abiel Gross MD [address] [place] [address] [place] [address] documented as of this encounter Visit Diagnoses Not on filedocumented in this encounter Care Teams Cyber Intelligence Analyst Relationship Specialty Start Date End Date Name, MD Royal [address] [place] [address] PCP - General 09/23/19 documented as of this encounter
--- OUTSIDE RECORDS SUMMARY | 2025-01-07 16:39 | XMS_ITS | Encounter Summary ---
Author Organization [facility] Address [address] [place] [address] 7t [place] [address] Care Team Providers Care Timber Trimmer Name Role Phone Name, Royal BEATTY Primary Care Provider [phone] Madhuri Becker PharmD Unavailable [phone] Reason for Visit * Reason Comments Med Refill Encounter Details Date Type Department Care Team ([facility] Contact Info) Description 05/31/2023 Refill [facility] MEDICINE [address] [place] [phone] Name, MD Royal [address] [place] [address] Social History Tobacco Use Types Packs/Day Years [...] Orientation Straight 09/18/2022 10 :33 AM EDT COVID-19 Exposure Response Date Recorded In the last 10 days, have yo u been in contact with someone who was confirmed or suspected to have Coronavirus/COVID-19? Unable to assess 05/28/2023 9:29 AM EDT documented as of this encounter Plan of Treatment Upcoming Encounters Date Type Department Care Team ([facility] Contact Info) Description 02/04/2025 9:30 AM EDT Medication Management [facility] MEDICINE [address] [place] [address] Madhuri Becker PharmD [address] [place] [address] documented as of this encounter Goals Goal Patient Goal Type Associated Problems Recent Progress Patient-Stated? Author Hemoglobin A1c < 8 Result Component 9.5( 5 10:08 AM EST) No Madhuri Becker PharmD [...] Time PHQ-9 Depression Total Score: 0 11/09/20 22 11:52 AM EST documented as of this encounter Care Teams Timber Trimmer Relationship Specialty Start Date End Date Name, MD Royal [address] [place] [address] PCP - General Family Medicine 06/16/19 Madhuri Becker, AlissonD [address] [place] [address] Pharmacist Internal Medicine 03/19/23 documented as of this encounter
--- OUTSIDE RECORDS SUMMARY | 2025-01-07 16:39 | XMS_ITS | Encounter Summary ---
Author Organization [employer] Address 75 [facility] 7t [place] [address] Care Team Providers Care Machine Clerical Verifier Name Role Phone Name, Royal BEATTY Primary Care Provider [phone] Madhuri Becker PharmD Unavailable [phone] Reason for Visit * Reason Comments Med Refill Encounter Details Date Type Department Care Team ([facility] Contact Info) Description 05/02/2024 Refill [facility] [address] [place] [address] Zechariah Bernabe MD [address] [place] [address] Social History Tobacco Use Types Packs/Day Years [...] Description 02/04/2025 9:30 AM EDT Medication Management [facility] MEDICINE [address] [place], [place] [phone] Madhuri Becker PharmD 230 [place], [place] [phone] documented as of this encounter Goals Goal [...] documented as of this encounter Care Teams Machine Clerical Verifier Relationship Specialty Start Date End Date Name, MD Royal [address] [place] [address] [phone] PCP - General Family Medicine 06/16/19 Madhuri Becker PharmD [address] [place] [address] [phone] Pharmacist Internal Medicine 03/19/23 documented as of this encounter
--- OUTSIDE RECORDS SUMMARY | 2025-01-07 16:39 | XMS_ITS | Encounter Summary ---
Author Organization [facility] [place], Address [address] [address] Phone Care Team Providers Care Quill Picking Machine Operator Name Role Phone Name, Royal BEATTY Primary Care Provider [phone] Encounter Details Date Type Department Care Team ([facility] Contact Info) Description 05/15/2024 Documentation Only [facility] [address] [place] [address] Elidia [facility] [place] [address] [place] [phone] Social History Tobacco Use Types Packs/Day Years [...] Upcoming Encounters Date Type Department Care Team ([facility] Contact Info) Description 02/20/2025 3:45 PM EDT Office Visit [facility] [address] [place] [address] Abiel Gross MD [address] [facility] [place] [phone] documented as of this encounter Visit Diagnoses Not on filedocumented in this encounter Care Teams Quill Picking Machine Operator Relationship Specialty Start Date End Date Name, MD Royal [address] [place] [address] PCP - General 09/23/19 documented as of this encounter
--- OUTSIDE RECORDS SUMMARY | 2025-01-07 16:39 | XMS_ITS | Encounter Summary ---
Author Organization [facility] Address [address] [place] [address] 7t [place] [address] Care Team Providers Care Director Of Program Management Name Role Phone Name, Royal BEATTY Primary Care Provider [phone] Madhuri Becker PharmD Unavailable Reason for Visit * Reason Onset Date Comments New Script 03/16/2023 Encounter Details Date Type Department Care Team ([facility] Contact Info) Description 03/16/2023 Telephone [facility] MEDICINE [address] [place] [address] Name, MD Royal [address] [place] [address] New Script Social History Tobacco Use Types Packs/Day Years [...] was confirmed or suspected to have Coronavirus/COVID-19? No / Unsure 03/19/2023 9:51 AM EDT documented as of this encounter Miscellaneous Notes * Telephone Encounter - Haydee Seth - 03/20/2023 2:07 PM EDT Script generated for signature * Telephone Encounter - Sam Mcknight - 03/16/2023 10:55 AM EDT Tc tarik Figueroa with [facility] requesting a script for Six Mastectomy Bras . Please Fax over script at [phone] If any question please contact [place] at [phone] documented in this encounter Plan of Treatment Upcoming Encounters Date Type Department Care Team (Late st Contact Info) Description 02/04/2025 9:30 AM EDT Medication Management [facility] MEDICINE [address] [place] [address] Madhuri Becker, PharmD [address] [place] [address] documented as of this encounter Goals Goal [...] documented as of this encounter Care Teams Director Of Program Management Relationship Specialty Start Date End Date Name, MD Royal [address] [place], [place] [phone] PCP - General Family Medicine 06/16/19 Madhuri Becker PharmD [address] [place], [place] [phone] Pharmacist Internal Medicine 03/19/23 documented as of this encounter
--- OUTSIDE RECORDS SUMMARY | 2025-01-07 16:39 | XMS_ITS | Encounter Summary ---
Author Organization [employer] Address 75 [facility] 7t [place] [address] Care Team Providers Care Oracle Soa Developer Name Role Phone Name, Royal BEATTY Primary Care Provider Madhuri Becker PharmD Unavailable [phone] Reason for Visit * Reason Onset Date Comments Appointment Request 11/03/2024 Encounter Details Date Type Department Care Team ([facility] Contact Info) Description 11/03/2024 Telephone [facility] MEDICINE [address] [place] [phone] Name, MD Royal [address] [place] [address] Appointment Request Social History Tobacco Use Types [...] encounter Miscellaneous Notes * Telephone Encounter - Yohan Ortega - 11/03/2024 9:22 AM EST Tc from [facility] requesting to reschedule today's CDTM visit. Please contact [facility] at [phone]. (Stateless Speaker) documented in this encounter Plan of Treatment Upcoming Encounters Date Type Department Care Team (Late st Contact Info) Description 02/04/2025 9:30 AM EDT Medication Management [facility] MEDICINE [address] [place] [address] PuiaHumbertoMadhuri, PharmD [address] [place] [address] documented as of this encounter Goals Goal Patient Goal Type Associated Problems Recent Progress Patient-Stated? Author Hemoglobin A1c < 8 Result Component 9.5( 10:08 AM EST) No Puia Madhuri, PharmD Record your blood sugar as directed Result Component No Rosita Madhuri, PharmD Note: Use CGM, as instructed, ensuring sensor is scanned at least Q8hr. Check BG via fingerstick as needed & as directed. documented as of this encounter Visit Diagnoses Not on filedocumented in this encounter Additional Health Concerns Assessment Noted Time PHQ-9 Depression Total Score: 0 03/11/20 24 2:52 PM EDT documented as of this encounter Care Teams Oracle Soa Developer Relationship Specialty Start Date End Date Name, MD Royal [address] [place] [address] PCP - General Family Medicine 06/16/19 Madhuri Becker PharmD [address] [place] [address] Pharmacist Internal Medicine 03/19/23 documented as of this encounter
--- OUTSIDE RECORDS SUMMARY | 2025-01-07 16:39 | XMS_ITS | Encounter Summary ---
Author Organization [employer] [facility] Address [address] [place] [address] [address] [place] [address] Care Team Providers Care Polishing Machine Tender Name Role Phone Name, Royal BEATTY Primary Care Provider Madhuri Becker PharmD Unavailable Encounter Details Date Type Department Care Team (Late st Contact Info) Description 11/02/2022 Orders Only [facility] [address] [place] [address] Nory Brown LPN Social History Tobacco Use Types Packs/Day Years Used Date Smoking Tobacco: Never Assessed Comments Unknown Sex and Gender Information Value [...] Description 02/04/2025 9:30 AM EDT Medication Management [facility] [address] [place] [address] Madhuri Becker, PharmD [address] [place] [address] documented as of this encounter Visit Diagnoses Not on filedocumented in this encounter Care Teams Polishing Machine Tender Relationship Specialty Start Date End Date Name, MD Royal [address] [place] [address] PCP - General Family Medicine 06/16/19 Madhuri Becker, PharmD [address] [place] [address] Pharmacist Internal Medicine 03/19/23 documented as of this encounter
--- OUTSIDE RECORDS SUMMARY | 2025-01-07 16:39 | XMS_ITS | Encounter Summary ---
Author Organization [facility] [place], Address [address] [address] Phone Care Team Providers Care Tail End Rider Name Role Phone Name, Royal BEATTY Primary Care Provider [phone] Encounter Details Date Type Department Care Team ([facility] Contact Info) Description 05/30/2024 Documentation Only [facility] [address] [place] [address] Elidia Cruz [place] [address] [place] [phone] Social History Tobacco Use Types Packs/Day Years [...] Department Care Team ([facility] Contact Info) Description 02/20/2025 3:45 PM EDT Office Visit [facility] [address] [place] [address] Abiel Gross MD [address] [facility] [place] [phone] documented as of this encounter Visit Diagnoses Not on filedocumented in this encounter Care Teams Tail End Rider Relationship Specialty Start Date End Date Name, MD Royal [address] [place] [address] PCP - General 09/23/19 documented as of this encounter
--- OUTSIDE RECORDS SUMMARY | 2025-01-07 16:39 | XMS_ITS | Encounter Summary ---
Author Organization [facility] Address [address] [address] Phone Care Team Providers Care Chief Operator Reformer Name Role Phone Name, Royal BEATTY Primary Care Provider [phone] Reason for Visit * Reason Comments Med Refill Encounter Details Date Type Department Care Team ([facility] Contact Info) Description 03/24/2024 Refill [facility] [address] [place] [address] Abiel Gross MD [address] [place] [address] [place] [address] Social History Tobacco Use Types [...] Upcoming Encounters Date Type Department Care Team ([facility] Contact Info) Description 02/20/2025 3:45 PM EDT Office Visit [facility] [address] [place] [address] Abiel Gross MD [address] [place] [address] [place] [address] documented as of this encounter Visit Diagnoses Not on filedocumented in this encounter Care Teams Chief Operator Reformer Relationship Specialty Start Date End Date Name, MD Royal [address] [place] [address] PCP - General 09/23/19 documented as of this encounter
--- OUTSIDE RECORDS SUMMARY | 2025-01-07 16:39 | XMS_ITS | Encounter Summary ---
Author Organization [employer] Address [address] [facility] 7t [place] [address] Care Team Providers Care Email Production Consultant Name Role Phone Name, Royal BEATTY Primary Care Provider [phone] Madhuri Becker PharmD Unavailable [phone] Reason for Visit * Reason Onset Date Comments Created In Error 07/30/2024 Encounter Details Date Type Department Care Team ([facility] Contact Info) Description 07/30/2024 Telephone [facility] [address] [place] [address] Name, MD Royal [address] [place] [address] Created In Error Social History Tobacco Use Types Packs/Day Years [...] 9:30 AM EDT Medication Management [facility] [address] [place] [address] PalomaiaMadhuri, PharmD [address] [place] [address] documented as of this encounter Goals Goal Patient Goal Type Associated Problems Recent Progress Patient-Stated? Author Hemoglobin A1c < 8 Result Component 9.5( 10:08 AM EST) No Puia, Madhuri, PharmD Record your blood sugar as directed Result Component No Puia, Madhuri, PharmD Note: Use CGM, as instructed, ensuring sensor is scanned at least Q8hr. Check BG via fingerstick as needed & as directed. documented as of this encounter Visit Diagnoses Not on filedocumented in this encounter Additional Health Concerns Assessment Noted Time PHQ-9 Depression Total Score: 0 03/11/20 24 2:52 PM EDT documented as of this encounter Care Teams Email Production Consultant Relationship Specialty Start Date End Date Name, MD Royal [address] [place] [address] PCP - General Family Medicine 06/16/19 Madhuri Becker, AlissonD [address] [place] [address] Pharmacist Internal Medicine 03/19/23 documented as of this encounter
--- OUTSIDE RECORDS SUMMARY | 2025-01-07 16:39 | XMS_ITS | Encounter Summary ---
Author Organization [facility] [place], Address [address] [address] Phone Care Team Providers Care Franchise Development Manager Name Role Phone Name, Royal BEATTY Primary Care Provider Encounter Details Date Type Department Care Team (Late Contact Info) Description 05/30/2023 Documentation Only [facility] [address] [place] [address] Abiel Gross MD [address] [place] [address] [place] [address] Social History Tobacco Use Types [...] Visit [facility] [address] [place] [address] Abiel Gross MD [address] [place] [address] [place] [phone] documented as of this encounter Visit Diagnoses Not on filedocumented in this encounter Care Teams Franchise Development Manager Relationship Specialty Start Date End Date Name, MD Royal [address] [place] [address] PCP - General 09/23/19 documented as of this encounter
--- OUTSIDE RECORDS SUMMARY | 2025-01-07 16:39 | XMS_ITS | Encounter Summary ---
Author Organization [employer] Address [address] [facility] 7t [place] [address] Care Team Providers Care Setup Technician Name Role Phone Name, Royal BEATTY Primary Care Provider [phone] Madhuri Becker PharmD Unavailable [phone] Reason for Visit * Reason Comments Med Refill Encounter Details Date Type Department Care Team ([facility] Contact Info) Description 12/26/2024 Refill [facility] [address] [place] [address] Name, MD Royal [address] [place] [address] Generalized pruritus Social History Tobacco Use Types Packs/Day Years [...] EDT Medication Management [facility] [address] [place] [address] PuiaHumbertoMadhuri, PharmD [address] [place] [address] documented as of this encounter Goals Goal [...] as of this encounter Visit Diagnoses Diagnosis Generalized pruritus Unspecified pruritic disorder documented in this encounter Additional Health Concerns Assessment Noted Time PHQ-9 Depression Total Score: 0 03/11/20 24 2:52 PM EDT documented as of this encounter Care Teams Setup Technician Relationship Specialty Start Date End Date Name, MD Royal [address] [place] [address] PCP - General Family Medicine 06/16/19 Madhuri Becker, Jazzmine [address] [place] [address] Pharmacist Internal Medicine 03/19/23 documented as of this encounter
== END 2025-01-07 16:37 | disposition home or self-care (01) ==
LOC: HO.CT 16:36
PROVIDERS: PCP Internal Medicine Geriatric Medicine; Visit Provider Nurse Practitioner Family
DX: J94.8 Other specified pleural conditions (principal)
CPT/HCPCS: 71250

== ENCOUNTER → 2025-01-07 16:38 | Outpatient (BNV) | payer OTHER, SELFPAY | PROVIDERS: PCP Internal Medicine Geriatric Medicine; Visit Provider Radiology Diagnostic Radiology | DX: J94.8 Other specified pleural conditions (principal) | CPT/HCPCS: 71250 ==

== ENCOUNTER 2025-01-26 09:41 | Outpatient (AMB) | payer OTHER, SELFPAY ==
[2025-01-26 10:18] VITALS: BP 134/70; PULSE 88; O2SAT 97; BMI 42.0
--- NOTE | 2025-01-26 10:18 | A.OFFVIS_ITS ---
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 She is accompanied by her son-in-law. She continues to report dry cough with associated dyspnea on exertion. At the last visit, she was sent for PFT and chest CT. Prior Chest CT from 04/2024 noted possible early ILD however patient did undergo radiation for right breast cancer. She also reported daytime fatigue, and will wake up gasping while sleeping, no prior dx of CARMELITA. She was sent for home sleep study but unfortunately missed the appt and is aware she needs to reschedule. Today she presents to review chest CT and PFT results. She denies any visits to urgent care or hospitalizations since the last visit. 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 Housing: Apartment Do you presently have visiting nurse or other home services: Yes Alcohol intake: never Patient Tobacco Use Status: Former Tobacco user Years Smoked: quit 6 years ago service: No Current occupational status: disabled Sexual orientation: Straight/Heterosexual Gender identity: Female Female Reproductive History Menstrual Age of Menarche: 14 Review of Systems Const Denies chills, Denies excessive sweating, Denies fever(s), Denies headache(s) and Denies night sweats Eyes Denies dry eyes, Denies irritation and Denies itchy eyes ENT Reports Normal hearing present, Denies headache(s), Denies nasal congestion, Denies nasal discharge, Denies post nasal drip and Denies sore throat Card Denies chest pain, Denies chest pain at rest, Denies chest pain with activity, Denies claudication, Denies leg edema and Denies paroxysmal nocturnal dyspnea Resp Denies chest congestion, Denies excessive phlegm production, Denies pain on inspiration, Denies pain with cough and Denies stridor Musc Denies myalgias Neuro Reports Normal hearing present and Denies headache(s) Endo Denies excessive sweating García/Lymph Denies lymphadenopathy Aller/Immun Denies itchy eyes and Denies seasonal rhinorrhea Physical Exam Vital Signs: Last Vital Signs Pulse 88 01/26/25 10:18 BP 134/70 01/26/25 10:18 Pulse Ox 97 01/26/25 10:18 Oxygen Delivery Method Room Air 01/26/25 10:18 BMI result Body Mass Index 42.0 Const General: cooperative, healthy appearing, comfortable, no acute distress, well developed and alert Nutritional Appearance: obese Orientation/consciousness: patient oriented x3 Limitations: ambulation with cane HEENT Head: Yes normal to inspection, Yes normocephalic and Yes atraumatic Ears: hearing grossly normal bilaterally and external ears normal Eyes General: appearance normal, both eyes and all related structures Eyelids: Yes eyelids normal Sclerae: sclerae normal EOM: EOMs intact bilaterally Neck Neck: Yes normal visual inspection and Yes no lymphadenopathy Lymphatic: no lymphadenopathy noted Chest Chest palpation & inspection: normal inspection of the chest Resp Effort & Inspection: normal respiratory effort, able to speak in complete sentences, no audible wheezes, no cough, no stridor, not tachypneic, no tripod positioning and no use of accessory muscles Auscultation: clear to auscultation bilaterally Cardio Jugular venous distension: no JVD Rate: regular rate Rhythm: regular rhythm Back/Spine/Pelvis Other: TTP Skin Other: warm, dry General skin exam: no rashes or lesions noted Neuro General: patient oriented x3 Cranial nerves: Yes Normal hearing present Cognition (Neuro): normal cognition Gait exam (Neuro): Normal gait present Extrem General: Yes normal to inspection, Yes capillary refill normal, Yes no clubbing, cyanosis or edema and Yes no pedal edema Psych Appearance: grossly normal and well kempt Speech and movement: Normal speech and movement present and Clear speech present Affect: normal affect Attitude: cooperative Thought process: Normal thought process present Thought content: Normal thought content present Insight: Good insight present (Psych) Judgement: Good judgement present (Psych) Results Reviewed Results Reviewed: [address] [address] [address] Scan Report Signed Patient: Luz Elena Montgomery MR#: [id number] : 1945 Acct:[id number] Age/Sex: 79 / F ADM Date: 01/07/25 Loc: HO.CT Attending Dr: Bertha Williamson NP Ordering Physician: Bertha Williamson NP Date of Service: 01/07/25 Procedure(s): CT chest wo IV con Accession Number(s): [id number] cc: Name,Royal BEATTY; Bertha Williamson NP~ Report Number: [id number]: Total DLP = 226.00 mGy-cm CLINICAL HISTORY: J94.8 - Other specified pleural conditions: Plural scarring CT chest without contrast Comparison: CT/REG/[place]/SR - CT CHEST WO IV CON - 04/30/24 08:43 EDT Findings: Mild atherosclerotic calcifications of the thoracic aorta and marked coronary artery calcifications. The visualized thyroid and mediastinum are unremarkable. No significant change in the very mild amount of subpleural reticulations seen throughout all of the lobes, with a slightly upper lobe predominance. Some pleural-parenchymal thickening/scarring at the right lung apex and along the anterior right middle lobe, stable and likely related to post radiation changes. No suspicious pulmonary nodules. Punctate calcified granuloma anterior right upper lobe. No infectious airspace consolidation, pleural effusion, or pneumothorax. Partially imaged upper abdomen shows calcified granulomas at the falciform ligament. Multilevel degenerative changes of the spine. Stable advanced changes of the right sternoclavicular joint with superior subluxation of the clavicular head. Stable lucent lesion in the superior left manubrium. No new or suspicious osseous findings. IMPRESSION: Overall, finding is not significantly changed from the previous examination with very mild areas of subpleural reticulation seen throughout all the lobes, slightly more prominent in the upper lobes, as described. No new, worsening, or enlarging findings. Marked coronary artery calcifications. This document has been electronically signed by: Remedios Garcia MD on 01/08/2025 12:17:16 Assessment & Plan Assessment & Plan (1) Asthma: Code(s): J45.909 - Unspecified asthma, uncomplicated Category: Medical (2) Dyspnea on exertion: Code(s): R06.09 - Other forms of dyspnea Category: Medical (3) Pleural scarring: Code(s): J94.8 - Other specified pleural conditions Category: Medical (4) Paroxysmal nocturnal dyspnea: Code(s): R06.00 - Dyspnea, unspecified Category: Medical Plan Reviewed PFT which revealed a mild obstructive ventilatory defect during the post bronchodilator spirometry measurements, with significant response to bronchodilators. Lung volumes are low normal likely secondary to an elevated BMI. The patient does have a mild diffusion impairment as well. PFT suggestive of asthma, will empirically trial Breo. Discussed importance of good oral hygiene to prevent thrush. Reviewed chest CT which revealed no significant calvin from the previous examination with very mild areas of subpleural reticulation seen throughout all the lobes, slightly more prominent in the upper lobes, as described. No new, worsening, or enlarging findings. Will repeat in one year to assess stability, if stable no further imaging warranted and likely related to prior radiation exposure. She reported symptoms suggestive of CARMELITA with paroxsymal nocturnal dyspnea, daytime fatigue and nonrestorative sleep. Previously sent for home sleep study, aware she needs to call to reschedule. All questions were answered and patient is in agreement of plan. Will follow up in 6-8 weeks or sooner if needed. Orders: Orders CT chest wo IV con 11 Months J94.8 - Other specified pleural conditions Medications: New fluticasone furoate-vilanterol 100-25 mcg/dose (Breo Ellipta) 1 inh inhalation DAILY 60 ea 3RF albuterol sulfate 90 mcg/actuation 2 puffs inhalation Q4-6H PRN 1 ea 3RF shortness of breath or wheezing Coding Level of Care Code Est Pt Level 4 (55130) Diagnoses Asthma J45.909 Dyspnea on exertion R06.09 Pleural scarring J94.8 Paroxysmal nocturnal dyspnea R06.00
--- OUTSIDE RECORDS SUMMARY | 2025-01-26 10:35 | XMS_ITS | Encounter Summary ---
Author Organization [facility] [place], Address [address] [place] [phone] Phone Care Team Providers Care Project Reservoir Engineer Name Role Phone Name, Royal BEATTY Primary Care Provider [phone] Encounter Details Date Type Department Care Team ([facility] Contact Info) Description 12/19/2022 Documentation Only [facility] [address] [place] [address] Polina Sarmiento [address] [place] [phone] Social History Tobacco Use Types Packs/Day [...] Upcoming Encounters Date Type Department Care Team ([facility] Contact Info) Description 02/20/2025 3:45 PM EDT Office Visit [facility] [address] [place] [address] Abiel Gross MD [address] [place] [address] [place] [phone] documented as of this encounter Visit Diagnoses Not on filedocumented in this encounter Care Teams Project Reservoir Engineer Relationship Specialty Start Date End Date Name, MD Royal [address] [place] [address] PCP - General 09/23/19 documented as of this encounter
--- OUTSIDE RECORDS SUMMARY | 2025-01-26 10:35 | XMS_ITS | Encounter Summary ---
Author Organization [facility] [place], Address [address] [address] Phone Care Team Providers Care Kettle Tender Name Role Phone Name, Royal BEATTY Primary Care Provider [phone] Encounter Details Date Type Department Care Team ([facility] Contact Info) Description 04/09/2023 Documentation Only [facility] [address] [place] [address] [place] [address] [place] [phone] Social History Tobacco Use Types Packs/Day Years [...] Visit [facility] [address] [address] Abiel Gross MD [address] [place] [address] [place] [phone] documented as of this encounter Visit Diagnoses Not on filedocumented in this encounter Care Teams Kettle Tender Relationship Specialty Start Date End Date Name, MD Royal [address] [place] [address] PCP - General 09/23/19 documented as of this encounter
--- OUTSIDE RECORDS SUMMARY | 2025-01-26 10:35 | XMS_ITS | Encounter Summary ---
Author Organization [employer] Address [address] [facility] 7t [place] [address] Care Team Providers Care Leases And Land Supervisor Name Role Phone Name, Royal BEATTY Primary Care Provider [phone] Madhuri Becker PharmD Unavailable [phone] Reason for Visit * Reason Onset Date Comments Appointment Request 11/03/2024 Encounter Details Date Type Department Care Team ([facility] Contact Info) Description 11/03/2024 Telephone [facility] [address] [place] [phone] Name, MD Royal [address] [place] [address] Appointment Request Social History Tobacco Use Types [...] 11/03/2024 9:22 AM EST Tc from [facility] ([facility]) requesting to reschedule today's CDTM visit. Please contact [facility] at [phone]. (Hong Konger Speaker) documented in this encounter Plan of Treatment Upcoming Encounters Date Type Department Care Team (Late st Contact Info) Description 02/04/2025 9:30 AM EDT Medication Management [facility] [address] [place] [address] Mahduri Becker, PharmD [address] [place] [address] 04/16/2025 9:15 AM EDT Office Visit [facility] [address] [place] [phone] Name, MD Royal [address] [place] [address] documented as of this encounter Goals Goal Patient Goal Type Associated Problems Recent Progress Patient-Stated? Author Hemoglobin A1c < 8 Result Component 9.5(01/16/202 5 10:08 AM EST) No Madhuri Becker, Jazzmine Record your blood sugar as directed Result [...] documented as of this encounter Care Teams Leases And Land Supervisor Relationship Specialty Start Date End Date Name, MD Royal [address] [place] [address] PCP - General Family Medicine 06/16/19 Madhuri Becker PharmD [address] [place] [address] Pharmacist Internal Medicine 03/19/23 documented as of this encounter
--- OUTSIDE RECORDS SUMMARY | 2025-01-26 10:35 | XMS_ITS | Encounter Summary ---
Author Organization [email or web address] Address 75 [facility] 7t [place] [address] Care Team Providers Care Farmworker Livestock Name Role Phone Name, Royal BEATTY Primary Care Provider [phone] Madhuri Becker PharmD Unavailable [phone] Reason for Visit * Reason Comments Med Refill Encounter Details Date Type Department Care Team ([facility] Contact Info) Description 01/25/2025 Refill [facility] [address] [place] [address] Name, MD Royal [address] [place] [address] Social History Tobacco Use Types Packs/Day Years [...] Description 02/04/2025 9:30 AM EDT Medication Management [facility] [address] [place] [address] Madhuri Becker, PharmD [address] [place] [address] 04/16/2025 9:15 AM EDT Office Visit [facility] [address] [place] [address] Name, MD Royal [address] [place] [address] documented as of this encounter Goals Goal Patient Goal Type Associated Problems Recent Progress Patient-Stated? Author Hemoglobin A1c < 8 Result Component 9.5( 10:08 AM EST) No Madhuri Becker, PharmD Record your blood sugar as directed [...] documented as of this encounter Care Teams Farmworker Livestock Relationship Specialty Start Date End Date Name, MD Royal [address] [place] [address] PCP - General Family Medicine 06/16/19 Madhuri Becker, Jazzmine [address] [place] [address] Pharmacist Internal Medicine 03/19/23 documented as of this encounter
--- OUTSIDE RECORDS SUMMARY | 2025-01-26 10:35 | XMS_ITS | Encounter Summary ---
Author Organization [employer] Address 75 [facility] 7t [place] [address] Care Team Providers Care Railroad Track Mechanic Name Role Phone Name, Royal BEATTY Primary Care Provider [phone] Madhuri Becker PharmD Unavailable [phone] Encounter Details Date Type Department Care Team ([facility] st Contact Info) Description 01/07/2025 Orders Only [facility] External Provider, [facility] Social History Tobacco Use Types Packs/Day Years [...] Description 02/04/2025 9:30 AM EDT Medication Management [facility] [address] [place] [address] Madhuri Becker PharmD [address] [place] [address] 04/16/2025 9:15 AM EDT Office Visit [address] [address] Name, MD Royal [address] [place] [address] documented as of this encounter Goals Goal [...] as directed. documented as of this encounter Procedures Procedure Name Priority Date/Time Associated Diagnosis Comments CT CHEST WO CONTRAST Routine 01/08/2025 12:17 PM EST documented in this encounter Results * CT Chest w/o Contrast (01/08/2025 12:17 PM EST) Anatomical Region Laterality Modality Body, Chest Computed Tomogra phy 01/08/2025 12:1 7 PM EST Narrative 01/08/2025 12:18 PM EST ? [facility] ?[address] ?[place], [place] [address] ? CT Scan Report ? Signed ? Patient: Segundo Church,Carmen ?MR#: [id number] ?? [id number] ? : 1945 ?Acct:[id number] ? Age/Sex: 79 / F ?ADM Date: 01/07/25 ? Loc: HO.CT ? Attending Dr: Bertha Williamson ADJUNCT PSYCHOLOGY FACULTY MEMBER ? Ordering Physician: Bertha Williamson NP ?? Date of Service: 01/07/25 ?? Procedure(s): CT chest wo IV con ?? Accession Number(s): [id number] ? cc: Name,Royal BEATTY; Bertha Williamson NP ? Report Number: ?? [id number]: Total DLP = ??226.00 mGy-cm ? CLINICAL HISTORY: J94.8 - Other specified pleural conditions: Plural scarring ? CT chest without contrast ? Comparison: CT/REG/NV/SR - CT CHEST WO IV CON - 04/30/24 08:43 EDT ? Findings: ?? Mild atherosclerotic calcifications of the thoracic aorta and marked ?? coronary artery calcifications. ?? The visualized thyroid and mediastinum are unremarkable. ? No significant change in the very mild amount of subpleural reticulations ?? seen throughout all of the lobes, with a slightly upper lobe predominance. ?? Some pleural-parenchymal thickening/scarring at the right lung apex and ?? along the anterior right middle lobe, stable and likely related to post ?? radiation changes. No suspicious pulmonary nodules. Punctate calcified ?? granuloma anterior right upper lobe. No infectious airspace consolidation, ?? pleural effusion, or pneumothorax. ? Partially imaged upper abdomen shows calcified granulomas at the falciform ?? ligament. ?? Multilevel degenerative changes of the spine. ?? Stable advanced changes of the right sternoclavicular joint with superior ?? subluxation of the clavicular head. Stable lucent lesion in the superior ?? left manubrium. No new or suspicious osseous findings. ? IMPRESSION: ?? Overall, finding is not significantly changed from the previous ?? examination with very mild areas of subpleural reticulation seen ?? throughout all the lobes, slightly more prominent in the upper lobes, as ?? described. No new, worsening, or enlarging findings. ?? Marked coronary artery calcifications. ? This document has been electronically signed by: Remedios Garcia MD on ?? 01/08/2025 12:17:16 ? Dictated By: ?Remedios Garcia MD ? Signed By: ?<Electronically signed by Remedios Garcia MD in OV> ?01/08/25 1217 ? DD/ 1217 ? TD/TT: 01/08/25 1217 ? Leveling Machine Operator: ? Procedure Note Donrosatraceeeldonter, Image - 01/08/[address] [place] [address] [address] Scan Report Signed Patient: Luz Elena Montgomery AMR#: [id number] : 6Acct:[id number] Age/Sex: 79 / FADM Date: 01/07/25 Loc: HO.CT Attending Dr: Bertha Williamson ADJUNCT PSYCHOLOGY FACULTY MEMBER Ordering Physician: Bertha Williamson NP Date of Service: 01/07/25 Procedure(s): CT chest wo IV con Accession Number(s): [id number] cc: Royal Pitt MD; Bertha Williamson NP Report Number: [id number]: Total DLP = 226.00 mGy-cm CLINICAL HISTORY: J94.8 - Other specified pleural conditions: Pluralscarring CT chest without contrast Comparison: CT/REG/NV/SR - CT CHEST WO IV CON - 04/30/24 08:43 EDT Findings: Mild atherosclerotic calcifications of the thoracic aorta and marked coronary artery calcifications. The visualized thyroid and mediastinum are unremarkable. No significant change in the very mild amount of subpleural reticulations seen throughout all of the lobes, with a slightly upper lobe predominance. Some pleural-parenchymal thickening/scarring at the right lung apex and along the anterior right middle lobe, stable and likely related to post radiation changes. No suspicious pulmonary nodules. Punctate calcified granuloma anterior right upper lobe. No infectious airspace consolidation, pleural effusion, or pneumothorax. Partially imaged upper abdomen shows calcified granulomas at the falciform ligament. Multilevel degenerative changes of the spine. Stable advanced changes of the right sternoclavicular joint with superior subluxation of the clavicular head. Stable lucent lesion in the superior left manubrium. No new or suspicious osseous findings. IMPRESSION: Overall, finding is not significantly changed from the previous examination with very mild areas of subpleural reticulation seen throughout all the lobes, slightly more prominent in the upper lobes, as described. No new, worsening, or enlarging findings. Marked coronary artery calcifications. This document has been electronically signed by: Remedios Garcia MD on 01/08/2025 12:17:16 Dictated By: Remedios Garcia MD Signed By: <Electronically signed by Remedios Garcia MD in OV> 01/08/257 DD/ 16 TD/TT: 01/08/251216 Leveling Machine Operator: [facility] External Provider IMG CT PROCEDURES Final Result documented in this encounter Visit Diagnoses Not on filedocumented in this encounter Additional Health Concerns Assessment Noted Time PHQ-9 Depression Total Score: 0 03/11/20 24 2:52 PM EDT documented as of this encounter Care Teams Railroad Track Mechanic Relationship Specialty Start Date End Date Name, MD Royal [address] [place] [address] PCP - General Family Medicine 06/16/19 Madhuri Becker PharmD [address] [place] [address] Pharmacist Internal Medicine 03/19/23 documented as of this encounter
--- OUTSIDE RECORDS SUMMARY | 2025-01-26 10:35 | XMS_ITS | Encounter Summary ---
Author Organization [employer] Address 75 [facility] 7t [place] [address] Care Team Providers Care Wringer Operator Name Role Phone Name, Royal BEATTY Primary Care Provider Madhuri Becker PharmD Unavailable [phone] Reason for Visit * Reason Onset Date Comments Created In Error 07/30/2024 Encounter Details Date Type Department Care Team ([facility] Contact Info) Description 07/30/2024 Telephone [facility] [address] [place] [address] Name, MD Royal [address] [place] [address] Created In Error Social History Tobacco Use [...] Description 02/04/2025 9:30 AM EDT Medication Management [address] [address] Madhuri Becker, PharmD [address] [place] [address] 04/16/2025 9:15 AM EDT Office Visit [address] [phone] Name, MD Royal [address] [place] [address] documented as of this encounter Goals Goal Patient Goal Type Associated Problems Recent Progress Patient-Stated? Author Hemoglobin A1c < 8 Result Component 9.5( 10:08 AM EST) No PuiaHumbertoMadhuri, PharmD Record your blood sugar as directed [...] documented as of this encounter Care Teams Wringer Operator Relationship Specialty Start Date End Date Name, MD Royal [address] [place] [address] PCP - General Family Medicine 06/16/19 Madhuri Becker PharmD [address] [place] [address] Pharmacist Internal Medicine 03/19/23 documented as of this encounter
--- OUTSIDE RECORDS SUMMARY | 2025-01-26 10:35 | XMS_ITS | Encounter Summary ---
Author Organization [employer] [facility] Address [address] [place] [address] 7t [place] [address] Care Team Providers Care Product Marketing Engineer Name Role Phone Name, Royal BEATTY Primary Care Provider Madhuri Becker PharmD Unavailable [phone] Encounter Details Date Type Department Care Team (Late st Contact Info) Description 11/02/2022 Orders Only [facility] [address] [place] [address] Nory Brown LPN Social History Tobacco Use [...] Description 02/04/2025 9:30 AM EDT Medication Management [facility] [address] [place] [address] Madhuri Becker, PharmD [address] [place] [address] 04/16/2025 9:15 AM EDT Office Visit [facility] [address] [place] [address] Name, MD Royal [address] [place] [address] documented as of this encounter Visit Diagnoses Not on filedocumented in this encounter Care Teams Product Marketing Engineer Relationship Specialty Start Date End Date Name, MD Royal [address] [place] [address] PCP - General Family Medicine 06/16/19 Madhuri Becker PharmD [address] [place] [address] Pharmacist Internal Medicine 03/19/23 documented as of this encounter
--- OUTSIDE RECORDS SUMMARY | 2025-01-26 10:35 | XMS_ITS | Encounter Summary ---
Author Organization [employer] [facility] Address [address] [place] [address] 7t [place] [address] Care Team Providers Care Field Nurse Name Role Phone Name, Royal BEATTY Primary Care Provider [phone] Madhuri Becker PharmD Unavailable [phone] Encounter Details Date Type Department Care Team ([facility] Contact Info) Description 01/29/2023 Orders Only [facility] [address] [place], [place] [phone] Remedios Rider LPN Social History Tobacco Use [...] Upcoming Encounters Date Type Department Care Team ([facility] Contact Info) Description 02/04/2025 9:30 AM EDT Medication Management [facility] MEDICINE [address] [place] [address] Madhuri Becker, PharmD [address] [place] [address] 04/16/2025 9:15 AM EDT Office Visit [facility] [address] [place] [address] Name, MD Royal [address] [place] [address] documented as of this encounter Visit Diagnoses Not on filedocumented in this encounter Additional Health Concerns Assessment Noted Time PHQ-9 Depression Total Score: 0 11/09/20 22 11:52 AM EST documented as of this encounter Care Teams Field Nurse Relationship Specialty Start Date End Date Name, MD Royal [address] [place] [address] PCP - General Family Medicine 06/16/19 Madhuri Becker PharmD [address] [place] [address] Pharmacist Internal Medicine 03/19/23 documented as of this encounter
--- OUTSIDE RECORDS SUMMARY | 2025-01-26 10:35 | XMS_ITS | Encounter Summary ---
Author Organization [employer] Address 75 [facility] 7t [place] [address] Care Team Providers Care Commutator Inspector Name Role Phone Name, Royal BEATTY Primary Care Provider [phone] Madhuri Becker PharmD Unavailable [phone] Reason for Visit * Reason Onset Date Comments Appointment Request 01/01/2025 Encounter Details Date Type Department Care Team ([facility] Contact Info) Description 01/01/2025 Telephone [facility] [address] [place] [address] Name, MD Royal [address] [place] [address] Appointment Request Social History Tobacco Use Types [...] 01/01/2025 8:11 AM EST Tc from pt ADMINISTRATIVE SUPPORT COORDINATOR requesting to r/s Pt apt for 01/01/25. Contact pt ADMINISTRATIVE SUPPORT COORDINATOR at [phone] documented in this encounter Plan of Treatment Upcoming Encounters Date Type Department Care Team ([facility] st Contact Info) Description 02/04/2025 9:30 AM EDT Medication Management [facility] [address] [place] [address] Madhuri Becker, PharmD [address] [place] [address] 04/16/2025 9:15 AM EDT Office Visit [facility] [address] [place] [address] [phone] Name, MD Royal [address] [place] [address] documented as of this encounter Goals Goal Patient Goal Type Associated Problems Recent Progress Patient-Stated? Author Hemoglobin A1c < 8 Result Component 9.5(01/16/202 5 10:08 AM EST) No Madhuri Becker [...] documented as of this encounter Care Teams Commutator Inspector Relationship Specialty Start Date End Date Name, MD Royal [address] [place] [address] PCP - General Family Medicine 06/16/19 Madhuri Becker PharmD [address] [place] [address] Pharmacist Internal Medicine 03/19/23 documented as of this encounter
--- OUTSIDE RECORDS SUMMARY | 2025-01-26 10:35 | XMS_ITS | Encounter Summary ---
Author Organization [employer] Address 75 [facility] 7t [place] [address] Care Team Providers Care Proposal Editor Name Role Phone Name, Royal BEATTY Primary Care Provider [phone] Madhuri Becker PharmD Unavailable [phone] Reason for Visit * Reason Comments Med Refill Encounter Details Date Type Department Care Team ([facility] Contact Info) Description 01/02/2025 Refill [facility] [address] [place] [address] Name, MD Royal [address] [place] [address] Essential hypertension Social History Tobacco Use Types [...] Description 02/04/2025 9:30 AM EDT Medication Management [address] [address] Madhuri Becker, PharmD [address] [place] [address] 04/16/2025 9:15 AM EDT Office Visit [facility] [address] [place] [address] Name, MD Royal [address] [place] [address] documented as of this encounter Goals Goal [...] documented as of this encounter Care Teams Proposal Editor Relationship Specialty Start Date End Date Name, MD Royal [address] [place] [address] PCP - General Family Medicine 06/16/19 Madhuri Becker PharmD [address] [place] [address] Pharmacist Internal Medicine 03/19/23 documented as of this encounter
--- OUTSIDE RECORDS SUMMARY | 2025-01-26 10:35 | XMS_ITS | Encounter Summary ---
Author Organization [facility], Address [address] [address] Phone Care Team Providers Care Executive Secretary Name Role Phone Name, Royal BEATTY Primary Care Provider [phone] Reason for Visit * Reason Comments Med Refill Encounter Details Date Type Department Care Team ([facility] Contact Info) Description 11/06/2022 Refill [facility] [address] [place] [phone] Abiel Gross MD [address] [place] [address] [place] [address] Social History Tobacco Use Types [...] Upcoming Encounters Date Type Department Care Team ([facility] Contact Info) Description 02/20/2025 3:45 PM EDT Office Visit [facility], [address] [place] [address] bAiel Gross MD [address] [place] [address] [place] [address] documented as of this encounter Visit Diagnoses Not on filedocumented in this encounter Care Teams Executive Secretary Relationship Specialty Start Date End Date Name, MD Royal [address] [place] [address] PCP - General 09/23/19 documented as of this encounter
--- OUTSIDE RECORDS SUMMARY | 2025-01-26 10:35 | XMS_ITS | Encounter Summary ---
Author Organization [employer] Address 75 [facility] 7t [place] [address] Care Team Providers Care Private Detective Name Role Phone Name, Royal BEATTY Primary Care Provider [phone] Madhuri Becker PharmD Unavailable Reason for Visit * Reason Onset Date Comments chartprep 12/30/2024 Encounter Details Date Type Department Care Team (Late st Contact Info) Description 12/30/2024 Telephone [facility] [address] [place] [address] Karon Esteban [place] chartprep Social History Tobacco [...] Description 02/04/2025 9:30 AM EDT Medication Management [facility] [address] [place] [address] Madhuri Becker PharmD [address] [place] [address] 04/16/2025 9:15 AM EDT Office Visit [facility] [address] [place] [address] Name, MD Royal [address] [place] [address] documented as of this encounter Goals Goal [...] documented as of this encounter Care Teams Private Detective Relationship Specialty Start Date End Date Name, MD Royal [address] [place] [address] PCP - General Family Medicine 06/16/19 Madhuri Becker PharmD [address] [place] [address] Pharmacist Internal Medicine 03/19/23 documented as of this encounter
--- OUTSIDE RECORDS SUMMARY | 2025-01-26 10:35 | XMS_ITS | Encounter Summary ---
Author Organization [facility] Address [address] [place] [address] 7t [place] [address] Care Team Providers Care Stopper Maker Name Role Phone Name, Royal BEATTY Primary Care Provider [phone] Madhuri Becker PharmD Unavailable [phone] Reason for Visit * Reason Onset Date Comments New Script 03/16/2023 Encounter Details Date Type Department Care Team ([facility] Contact Info) Description 03/16/2023 Telephone [facility] [address] [place] [address] Name, MD Royal [address] [place] [address] New Script Social History Tobacco Use Types [...] for signature * Telephone Encounter - Sam Dicksonrafaela Marianoro - 03/16/2023 10:55 AM EDT Tc tarik Figueroa with [facility] requesting a script for Six Mastectomy Bras . Please Fax over script at [phone] If any question please contact [place] at [phone] documented in this encounter Plan of Treatment Upcoming Encounters Date Type Department Care Team (Late st Contact Info) Description 02/04/2025 9:30 AM EDT Medication Management [address] [address] Madhuri Becker, PharmD [address] [place] [address] 04/16/2025 9:15 AM EDT Office Visit [facility] [address] [place] [address] Name, MD Royal [address] [place] [address] [phone] documented as of this encounter Goals Goal [...] documented as of this encounter Care Teams Stopper Maker Relationship Specialty Start Date End Date NameRoyal MD [address] [place] [address] [phone] PCP - General Family Medicine 06/16/19 Madhuri Becker, AlissonD [address] [place] [address] Pharmacist Internal Medicine 03/19/23 documented as of this encounter
--- OUTSIDE RECORDS SUMMARY | 2025-01-26 10:35 | XMS_ITS | Encounter Summary ---
Author Organization [employer] Address 75 [facility] 7t [place] [address] Care Team Providers Care Eye Care Professional Name Role Phone Name, Royal BEATTY Primary Care Provider [phone] Madhuri Becker PharmD Unavailable [phone] Reason for Visit * Reason Onset Date Comments february recalls 01/09/2025 Encounter Details Date Type Department Care Team (Late st Contact Info) Description 01/09/2025 Telephone [facility] MED[facility]INE [address] [place] [address] Maikel Casiano [place] february recalls Social History Tobacco Use Types Packs/Day Years [...] encounter Miscellaneous Notes * Telephone Encounter - Maikel Casiano MA - 01/09/2025 4:22 PM EST Telephone call to patient to schedule the following recall: Visit type: Physical Appointment notes: Physical Patient agree to appointment on 04/16/25 at 9:15 AM with Name. documented in this encounter Plan of Treatment Upcoming Encounters Date Type Department Care Team ([facility] st Contact Info) Description 02/04/2025 9:30 AM EDT Medication Management [facility] MEDICINE [address] [place] [address] Madhuri Becker, PharmD [address] [place] [address] 04/16/2025 9:15 AM EDT Office Visit [facility] MEDICINE [address] [place] [address] Name, MD Royal [address] [place] [address] documented as of this encounter Goals Goal [...] documented as of this encounter Care Teams Eye Care Professional Relationship Specialty Start Date End Date Name, MD Royal [address] [place] [address] PCP - General Family Medicine 06/16/19 Madhuri Becker PharmD [address] [place] [address] Pharmacist Internal Medicine 03/19/23 documented as of this encounter
--- OUTSIDE RECORDS SUMMARY | 2025-01-26 10:35 | XMS_ITS | Encounter Summary ---
Author Organization [employer] Address 75 [facility] 7t [place] [address] Care Team Providers Care Division Sales Manager Name Role Phone Name, Royal BEATTY Primary Care Provider [phone] Madhuri Becker PharmD Unavailable [phone] Reason for Visit * Reason Comments Med Refill Encounter Details Date Type Department Care Team ([facility] Contact Info) Description 12/30/2024 Refill [facility]INE [address] [place] [address] Name, MD Royal [address] [place] [address] Essential hypertension Social History Tobacco Use Types [...] Description 02/04/2025 9:30 AM EDT Medication Management [address] [address] Madhuri Becker, PharmD [address] [place] [address] 04/16/2025 9:15 AM EDT Office Visit [facility]IC[facility] [address] [place] [address] Name, MD Royal [address] [place] [address] documented as of this encounter Goals Goal [...] documented as of this encounter Care Teams Division Sales Manager Relationship Specialty Start Date End Date Name, MD Royal [address] [place] [address] PCP - General Family Medicine 06/16/19 Madhuri Becker PharmD [address] [place] [address] Pharmacist Internal Medicine 03/19/23 documented as of this encounter
--- OUTSIDE RECORDS SUMMARY | 2025-01-26 10:35 | XMS_ITS | Encounter Summary ---
Author Organization [facility] [place], Address [address] [address] Phone Care Team Providers Care Hardware Engineer Name Role Phone Name, Royal BEATTY Primary Care Provider [phone] Encounter Details Date Type Department Care Team (Late Contact Info) Description 05/30/2023 Documentation Only [facility] [address] [address] Abiel Gross MD [address] [place] [address] [place] [address] Social History Tobacco Use Types [...] Visit [facility] [address] [address] Abiel Gross MD [address] [place] [address] [place] [address] documented as of this encounter Visit Diagnoses Not on filedocumented in this encounter Care Teams Hardware Engineer Relationship Specialty Start Date End Date Name, MD Royal [address] [place] [address] PCP - General 09/23/19 documented as of this encounter
--- OUTSIDE RECORDS SUMMARY | 2025-01-26 10:35 | XMS_ITS | Encounter Summary ---
Author Organization [facility] Address [address] [place] [address] 7t [place] [address] Care Team Providers Care Job Development Specialist Name Role Phone Name, Royal BEATTY Primary Care Provider [phone] Madhuri Becker PharmD Unavailable [phone] Reason for Visit * Reason Comments Med Refill Encounter Details Date Type Department Care Team ([facility] Contact Info) Description 05/31/2023 Refill [facility] [address] [place] [address] Name, MD Royal [address] [place] [address] Social History Tobacco Use Types Packs/Day Years [...] Upcoming Encounters Date Type Department Care Team ([facility] Contact Info) Description 02/04/2025 9:30 AM EDT Medication Management [facility] [address] [place] [address] Madhuri Becker [place] [address] 04/16/2025 9:15 AM EDT Office Visit [facility] [address] [place] [address] Name, [place] [address] documented as of this encounter Goals Goal [...] documented as of this encounter Care Teams Job Development Specialist Relationship Specialty Start Date End Date Name, MD Royal [address] [place] [address] PCP - General Family Medicine 06/16/19 Madhuri Becker PharmD [address] [place] [address] [phone] Pharmacist Internal Medicine 03/19/23 documented as of this encounter
--- OUTSIDE RECORDS SUMMARY | 2025-01-26 10:36 | XMS_ITS | Encounter Summary ---
Author Organization [facility] [place], Address [address] [address] Phone Care Team Providers Care Integrity Director Name Role Phone Name, Royal BEATTY Primary Care Provider [phone] Encounter Details Date Type Department Care Team (Late Contact Info) Description 01/18/2022 Documentation Only [facility] [address] [place] [address] Abiel Gross MD [address] [place] [address] [place] [address] Social History Tobacco Use Types [...] Visit [facility] [address] [place] [address] Abiel Gross MD [address] [place] [address] [place] [phone] documented as of this encounter Visit Diagnoses Not on filedocumented in this encounter Care Teams Integrity Director Relationship Specialty Start Date End Date Name, MD Royal [address] [place] [address] PCP - General 09/23/19 documented as of this encounter
--- OUTSIDE RECORDS SUMMARY | 2025-01-26 10:36 | XMS_ITS | Encounter Summary ---
Author Organization [employer] Address [address] [facility] 7t [place] [address] Care Team Providers Care Front Edger Name Role Phone Name, Royal BEATTY Primary Care Provider [phone] Madhuri Becker PharmD Unavailable [phone] Reason for Visit * Reason Comments Med Refill Encounter Details Date Type Department Care Team ([facility] Contact Info) Description 04/25/2024 Refill [facility] [address] [place] [address] Madhuri Becker, PharmD 230 [place] [address] Type 2 diabetes mellitus with stage 4 chronic kidney disease, with long-term current use of insulin ([facility]) Social History Tobacco Use Types Packs/Day Years [...] Description 02/04/2025 9:30 AM EDT Medication Management [facility] [address] [place] [address] Madhuri Becker PharmD [address] [place] [address] 04/16/2025 9:15 AM EDT Office Visit [facility] [address] [place] [address] [phone] Name, MD Royal [address] [place] [address] documented as of this encounter Goals Goal [...] disease, with long-term current use of insulin ([facility]) documented in this encounter Additional Health Concerns Assessment Noted Time PHQ-9 Depression Total Score: 0 03/11/20 24 2:52 PM EDT documented as of this encounter Care Teams Front Edger Relationship Specialty Start Date End Date Name, MD Royal [address] [place] [address] PCP - General Family Medicine 06/16/19 Madhuri Becker PharmD [address] [place] [address] Pharmacist Internal Medicine 03/19/23 documented as of this encounter
--- OUTSIDE RECORDS SUMMARY | 2025-01-26 10:36 | XMS_ITS | Encounter Summary ---
Author Organization [facility] [place], Address [address] [address] Phone Care Team Providers Care Candle Maker Name Role Phone Name, Royal BEATTY Primary Care Provider Encounter Details Date Type Department Care Team ([facility] Contact Info) Description 05/15/2024 Documentation Only [facility] [address] [facility] [place] [address] Elidia Cruz [place] [address] [place] [phone] Social History Tobacco Use Types Packs/Day Years [...] Visit [facility] [address] [place] [address] Abiel Gross MD [address] [facility] [place] [phone] documented as of this encounter Visit Diagnoses Not on filedocumented in this encounter Care Teams Candle Maker Relationship Specialty Start Date End Date Name, MD Royal [address] [place] [address] PCP - General 09/23/19 documented as of this encounter
--- OUTSIDE RECORDS SUMMARY | 2025-01-26 10:36 | XMS_ITS | Clinical Summary ---
Author Organization [employer] Address [address] [facility] 7t [place] [address] Care Team Providers Care Band Manager Name Role Phone Name, Royal BEATTY Primary Care Provider [phone] Madhuri Becker PharmD Unavailable [phone] Allergies No known active allergies Medications metoprolol [...] daily 05/01/20 22 Active Continuous Blood Gluc Steam Trap Worker (FreeStyle Zoraida 2 [place]) deviceIndication s:Type 2 diabetes mellitus with stage 4 chronic kidney disease, with long-term current use of insulin (CMS/[facility]) Use as directed 1 each 03/02/20 23 [...] disease, with long-term current use of insulin ([facility]) Chew 4 tablets (16 g) if needed [...] disease, with long-term current use of insulin ([facility]) Inject 26 units subQ once daily in the morning. 15 mL 2 08/25/20 24 Active gabapentin (Neurontin) 100 MG capsule TAKE 1 CAPSULE BY MOUTH AT BEDTIME 30 capsule 09/08/20 24 Active insulin pen needle (BD Pen Needle Rachele U/F) 32G x 4 mm miscIndications: Type 2 diabetes mellitus with stage 4 chronic kidney disease, with long-term current use of insulin ([facility]) USE UP TO THREE TIMES DAILY FOR INSULIN 100 each 09/11/20 24 Active Continuous Glucose Sensor (FreeStyle Zoraida 2 Sensor) miscIndications: Type 2 diabetes mellitus with stage 4 chronic kidney disease, with long-term current use of insulin ([facility]) TEST BLOOD SUGAR DIRECTED. CHANGE EVERY 14 DAYS. 2 each 09/23/20 24 Active calcium carbonate 1500 (600 Ca) MG tabletIndication s:CKD stage 4 due to type 2 diabetes mellitus ([facility]) TAKE 1 TABLET BY MOUTH TWICE DAILY [...] disease, with long-term current use of insulin (CMS/[facility]) Inject subQ with meals; 8 units with lunch & 6 units with dinner. 11/06/20 24 Active amLODIPine (Norvasc) 2.5 MG tabletIndication s:Essential hypertension TAKE 1 TABLET BY MOUTH EVERY MORNING 90 tablet 1 12/01/19 25 Active Tirzepatide (Mounjaro) 7.5 MG/0.5ML solution auto-injectorInd ications:Type 2 diabetes mellitus with stage 4 chronic kidney disease, with long-term current use of insulin (CMS/Dr. TATTOFF) Inject 7.5 mg under the skin 1 (one) time per week. 2 mL 11 12/04/19 25 Active diphenhydrAMINE (Pauline-Dryl) 25 MG [...] 90 tablet 3 01/25/20 24 025 Discontinued Active Problems Problem Noted [...] Encounters Date Type Department Care Team Description 01/25/2025 Refill [facility] [address] [place] [address] NameRoyal MD 01/09/2025 Telephone [facility]INE [address] [place], [place] [phone] Maikel Casiano MA february recalls 01/07/2025 Orders Only [facility] External Provider, [facility] 01/02/2025 Refill [facility]INE [address] [place] [address] Royal Pitt MD Essential hypertension 01/01/2025 Telephone [facility]INE [address] [place], [place] [phone] Royal Pitt MD Appointment Request 12/30/2024 Telephone [facility]INE [address] [place] [address] Karon Esteban MA chartprep 12/30/2024 Refill [facility]INE [address] [place] [address] Royal Pitt MD Essential hypertension 12/26/2024 Refill [facility]INE [address] [place] [address] NameRoyal MD Generalized pruritus 12/04/2024 Travel 11/29/2024 Refill [facility]INE [address] [place] [address] Royal Pitt MD Essential hypertension 11/03/2024 Telephone [facility]INE [address] [place] [address] Maikel Casiano MA feb recall 11/03/2024 Telephone [facility]INE [address] [place] [address] Royal Pitt MD Appointment Request from Last 3 Months Immunizations Name Administration [...] Description 02/04/2025 9:30 AM EDT Medication Management [facility] MED[facility]INE [address] [place] [address] Madhuri Becker, PharmD [address] [place] [address] 04/16/2025 9:15 AM EDT Office Visit [facility]INE [address] [place] [address] [phone] Name, MD Royal [address] [place] [address] Health Maintenance Due Date Last Done Comments Hepatitis C Screening 1963 Diabetes: Foot Exam 08/31/2024 08/31/2023, 08/31/2023, 08/31/2023, Additional history exists Diabetes: Hemoglobin A1C 03/04/2025 025, 08/25/2024, 06/02/2024, Additional history exists SDOH Screening 03/04/2025 03/04/2024 Depression Screening 03/11/2025 03/11/2024, 03/11/20 24 Lipid Panel 05/15/2025 05/15/2024, 0 07/2023, 06/27/2022 Alcohol/Substance Use Screening 06/10/2025 06/10/2024 Eye Exam 07/24/2025 07/24/2024, 0 03/2024, 07/24/2024, Additional history exists Tobacco Screening 08/04/2025 08/04/2024 Mammogram 08/29/2025 08/29/2024, 0 02/2023, 08/22/2023, Additional history exists DTaP/Tdap/Td Vaccines (2 - Td or Tdap) 01/18/2030 01/19/2020 Zoster Vaccines Completed 05/28/2023, 05/0 11/2022, 08/01/2018 Pneumococcal Vaccine: 50+ Years Completed [...] WO CONTRAST Routine 01/08/2025 12:17 PM EST POCT GLYCATED HEMOGLOBIN, TOTAL Routine 12/04/2024 10:08 AM EST Type 2 diabetes mellitus with stage 4 chronic kidney disease, with long-term current use of insulin ([facility]) BI MAMMOGRAM SCREENING TOMOSYNTHESIS LEFT Routine 08/29/2024 9:45 AM EDT LIPID PANEL, STANDARD Routine 05/15/2024 9:10 AM EDT Type 2 diabetes mellitus with stage 4 chronic kidney disease, with long-term current use of insulin (CMS/HCC) Acute non-recurrent maxillary sinusitis Chronic kidney disease, stage 4 (severe) (CMS/HCC) from Last 3 Months or Most Recently Relevant to Health Maintenance Results * CT Chest w/o Contrast (01/08/2025 12:17 PM EST) Anatomical Region Laterality Modality Body, Chest Computed Tomogra phy 01/08/2025 12:1 7 PM EST Narrative 01/08/2025 12:18 PM EST ? [facility] ?[address] ?[place] [address] ? CT Scan Report ? Signed ? Patient: Luz Elena Montgomery ?MR#: MM ?? [id number] ? : 1945 ?Acct:[id number] ? Age/Sex: 79 / F ?ADM Date: 01/07/25 ? Loc: HO.CT ? Attending Dr: Bertha Williamson MASTER PLUMBER ? Ordering Physician: Bertha Williamson NP ?? Date of Service: 01/07/25 ?? Procedure(s): CT chest wo IV con ?? Accession Number(s): [id number] ? cc: Name,Royal BEATTY; Bertha Williamson NP ? Report Number: ?? [id number]: Total DLP = ??226.00 mGy-cm ? CLINICAL HISTORY: J94.8 - Other specified pleural conditions: Plural scarring ? CT chest without contrast ? Comparison: CT/REG/IN/SR - CT CHEST WO IV CON - [...] DD/ 1217 ? TD/TT: 01/08/25 1217 ? Cable Tester: ? Procedure Note Lane, Image - 01/08/[address] [place] [address] [address] Scan Report Signed Patient: Luz Elena Montgomery AMR#: [id number] : 6Acct:[id number] Age/Sex: 79 / FADM Date: 01/07/25 Loc: HO.CT Attending Dr: Bertha Williamson MASTER PLUMBER Ordering Physician: Bertha Williamson NP Date of Service: 01/07/25 Procedure(s): CT chest wo IV con Accession Number(s): [id number] cc: Royal Pitt MD; Bertha Williamson NP Report Number: [id number]: Total DLP = 226.00 mGy-cm CLINICAL HISTORY: J94.8 - Other specified pleural conditions: Pluralscarring CT chest without contrast Comparison: CT/REG/IN/SR - CT CHEST WO IV CON - [...] signed by Remedios Garcia MD in OV> 01/08/25 1217 DD/ 1217 TD/TT: 01/08/25 1217 Cable Tester: [facility] External Provider IMG CT PROCEDURES Final Result * (ABNORMAL) POCT HGB A1C (12/04/2024 10:08 AM EST) Hemoglobin A1C 9.5(A) 4.0 - 6.0 % QC Media Lot # [id number] Blood 12/04/2024 10:0 8 AM EST Royal Pitt MD POINT OF CARE TEST ENTER/EDIT OR DERABLES Final Result * BI Mammogram Screening Tomosynthesis Left (08/29/2024 9:45 AM EDT) Anatomical Region Laterality Modality Breast Left Mammography 08/29/2024 9:45 AM EDT Narrative 09/09/2024 4:59 PM EDT ? [facility] ? [address] ?[place] [address] ? Mammography Report ? Signed ? Patient: Raymond Church,Carmen ?MR#: MM ?? [id number] ? : 1945 ?Acct:[id number] ? Age/Sex: 79 / F ?ADM Date: 08/29/24 ? Loc: HO.MAMMO ? Attending : Royal Pitt MD ? Ordering Physician: Yoandy,Royal BEATTY ?Results: 1Negative ? Date of Service: 08/29/24 ?Follow Up: 1 Year From Orig ?? inal Mammogram ? Procedure(s): MM tomosynthesis screening LT ?? Accession Number(s): [id number] ? cc: Name,Royal BEATTY ? EXAMINATION: ?? [...] ? Signed By: ?<Electronically signed by Jane Douglas, DO in OV> ? 09/09/24 1657 ? DD/ 0945 ? TD/TT: 08/29/24954 ? Cable Tester: ? Procedure Note Lane, Image - 09/09/2024 [facility] [address] [place] [address] Mammography Report Signed Patient: Luz Elena Montgomery AMR#: [id number] : 6Acct:[id number] Age/Sex: 79 / FADM Date: 08/29/24 Loc: HO.MAMMO Attending Dr: Royal Pitt MD Ordering Physician: Royal Pitt MDResults: 1Negative Date of Service: 08/29/24Follow Up: 1 Year From Orig inal Mammogram Procedure(s): MM tomosynthesis screening Accession Number(s): [id number] cc: Royal Pitt MD EXAMINATION: MM SCREENING [...] Jane Douglas DO 09/09/2024 04:57 PM EDT RP Dictated By: Jane Douglas DO Signed By: <Electronically signed by Jane Douglas DO in OV> 09/09/24 1657 DD/ TD/TT: 08/29/24954 Cable Tester: us Royal Name MD GUALLPA BI PROCEDURES Final Result * (ABNORMAL) Lipid Panel, Standard (05/15/2024 9:10 AM EDT) Triglycerides 170(H) <150 mg/dL [facility] Comment:Desirable Triglyceri de: less than 150 mg/dLBorderline High Triglyceride 150-199 mg/dLHigh Triglyceride: 200-499 mg/dLVery High Triglyceride: greater than or equal to 5OO mg/dL Cholesterol 122 <200 mg/dL [facility] Comment:Desirable Cholestero l: less than 200 mg/dLBorderline High Cholesterol: 200-239 mg/dLHigh Cholesterol: greater than 239 mg/dL LDL Cholesterol Calculated 48 <100 mg/dL [facility] Comment:Desirable LDL: less than 100 mg/dLNear Optimal/Above Optimal LDL: 110- 129 mg/dLBorderline High LDL: 130-159 mg/dLHigh LDL: 160-189 mg/dLVery High LDL: greater than or equal to 190 mg/dL HDL Cholesterol 40(L) >40 mg/dL [facility] Comment:Desirable HDL: great er than 40 mg/dL Note: This HDL assay may give artificially low results in patients with liver disease. Blood Venous blood specimen / Unknown 05/15/2024 9:10 AM EDT 05/15/2024 11:17 AM EDT us Royal Pitt MD LAB BLOOD ORDERABLES Final Resul t [facility] [address] [place] [address] [phone] from Last 3 Months or Most Recently Relevant to Health Maintenance Insurance [facility] STANDARD Member Subscriber Plan / Payer (Ef fective 2024-Present) Name:Luz Elena Montgomery Relation to Subscriber:Self Name:Luz Elena Montgomery Payer ID:Not on file Group ID:Not on file Type:Medicaid Address: [address] [id number] [address] [place] Care Teams Band Manager Relationship Specialty Start Date End Date Name, MD Royal [address] [place] [address] PCP - General Family Medicine 06/16/19 Madhuri Becker, AlissonD [address] [place] [address] Pharmacist Internal Medicine 03/19/23
--- OUTSIDE RECORDS SUMMARY | 2025-01-26 10:36 | XMS_ITS | Encounter Summary ---
Author Organization [employer] Address [address] [facility] 7t [place] [address] Care Team Providers Care Sales Representative Leather Goods Name Role Phone Name, Royal BEATTY Primary Care Provider [phone] Madhuri Becker PharmD Unavailable [phone] Reason for Visit * Reason Comments Med Refill Encounter Details Date Type Department Care Team ([facility] Contact Info) Description 05/19/2024 Refill [facility] [address] [place] [address] Maryan Vasquez MD [address] [place] [address] Social History Tobacco Use Types Packs/Day Years [...] Description 02/04/2025 9:30 AM EDT Medication Management [facility] [address] [place] [address] Madhuri Becker PharmD [address] [place] [address] 04/16/2025 9:15 AM EDT Office Visit [facility] [address] [place] [address] Royal Pitt MD [address] [place] [address] documented as of this encounter Goals Goal [...] documented as of this encounter Care Teams Sales Representative Leather Goods Relationship Specialty Start Date End Date NameRoyal MD [address] [place] [address] PCP - General Family Medicine 06/16/19 Madhuri Becker PharmD [address] [place] [address] Pharmacist Internal Medicine 03/19/23 documented as of this encounter
--- OUTSIDE RECORDS SUMMARY | 2025-01-26 10:36 | XMS_ITS | Clinical Summary ---
Author Organization [facility] [place], Address [address] [place] [address] [place] [address] Phone Care Team Providers Care Rn Telephonic Name Role Phone Name, Royal BEATTY Primary Care Provider [phone] Allergies No known active allergies Medications acetaminophen [...] Office Communication [facility] [address] [place] [address] Josi [place] from Last 3 Months [...] Office Visit [facility] [address] [place] [address] Abiel Gross MD [address] [place] [address] Health Maintenance [...] PM EDT) Hemoglobin A1C 9.2(H) (4.0-5.6) % [facility] Comment: MONITORING: In known diabetic patients, hemoglobin A1c targets should be discussed with health care provider. DIAGNOSTIC USE: ??The [place] Diabetes Association (ADA) and the World Health [...] Supplement 1 Testing performed or reported by [facility] [employer], a Service of [facility], [address] [place] [address] Geetha Meléndez MD, Fretted Instrument Repairer Blood (Blood, Venous) 05/16/2021 4:21 PM EDT 05/16/2021 4:26 PM EDT Abiel Gross MD LAB BLOOD ORDERABLES Final Result [facility] from Last 3 Months or Most Recently Relevant to Health Maintenance Insurance MEDICARE [place]ICAID [place] Care Teams Rn Telephonic Relationship Specialty Start Date End Date Name, MD Royal [address] [place] [address] PCP - General 09/23/19
--- OUTSIDE RECORDS SUMMARY | 2025-01-26 10:36 | XMS_ITS | Encounter Summary ---
Author Organization [facility] [place], Address [address] [address] Phone Care Team Providers Care Insect Control Aide Name Role Phone Name, Royal BEATTY Primary Care Provider [phone] Encounter Details Date Type Department Care Team ([facility] Contact Info) Description 05/30/2024 Documentation Only [facility] [address] [place] [address] Elidia Cruz [place] [address] [place] [phone] Social History Tobacco Use Types Packs/Day Years [...] Date Type Department Care Team ([facility] [address] Contact Info) Description 02/20/2025 3:45 PM EDT Office Visit [facility] [address] [place] [address] Abiel Gross MD [address] [facility] [place] [phone] documented as of this encounter Visit Diagnoses Not on filedocumented in this encounter Care Teams Insect Control Aide Relationship Specialty Start Date End Date Name, MD Royal [address] [place] [address] PCP - General 09/23/19 documented as of this encounter
--- OUTSIDE RECORDS SUMMARY | 2025-01-26 10:36 | XMS_ITS | Encounter Summary ---
Author Organization [facility] Address [address] [address] Phone Care Team Providers Care Technical Testing Engineer Name Role Phone Name, Royal BEATTY Primary Care Provider [phone] Reason for Visit * Reason Comments Med Refill Encounter Details Date Type Department Care Team ([facility] Contact Info) Description 03/24/2024 Refill [facility] [address] [place] [address] Abiel Gross MD [address] [place] [address] [place] [address] Social History Tobacco Use Types [...] Upcoming Encounters Date Type Department Care Team ([facility] Contact Info) Description 02/20/2025 3:45 PM EDT Office Visit [facility] [address] [place] [address] Abiel Gross MD [address] [place] [address] [place] [address] documented as of this encounter Visit Diagnoses Not on filedocumented in this encounter Care Teams Technical Testing Engineer Relationship Specialty Start Date End Date Name, MD Royal [address] [place] [address] PCP - General 09/23/19 documented as of this encounter
--- OUTSIDE RECORDS SUMMARY | 2025-01-26 10:36 | XMS_ITS | Encounter Summary ---
Author Organization [facility] [place], Address [address] [address] Phone Care Team Providers Care Car Body Mechanic Name Role Phone Name, Royal BEATTY Primary Care Provider [phone] Reason for Visit * Reason Comments Med Refill Encounter Details Date Type Department Care Team ([facility] Contact Info) Description 03/25/2024 Refill [facility] [address] [place] [phone] Abiel Gross MD [address] [place] [address] [place] [address] Social History Tobacco Use Types [...] Upcoming Encounters Date Type Department Care Team ([facility] Contact Info) Description 02/20/2025 3:45 PM EDT Office Visit [facility], [address] [facility] [place] [address] Abiel Gross MD [address] [place] [address] [place] [address] documented as of this encounter Visit Diagnoses Not on filedocumented in this encounter Care Teams Car Body Mechanic Relationship Specialty Start Date End Date Name, MD Royal [address] [place] [address] PCP - General 09/23/19 documented as of this encounter
--- OUTSIDE RECORDS SUMMARY | 2025-01-26 10:36 | XMS_ITS | Encounter Summary ---
Author Organization [email or web address] Address [address] [facility] 7t [place] [address] Care Team Providers Care Record Retrieval Specialist Name Role Phone Name, Royal BEATTY Primary Care Provider [phone] Madhuri Becker PharmD Unavailable [phone] Reason for Visit * Reason Comments Med Refill Encounter Details Date Type Department Care Team ([facility] Contact Info) Description 05/02/2024 Refill [facility] [address] [place] [address] Zechariah Bernabe MD [address] [place] [address] Social History Tobacco Use Types Packs/Day Years [...] Description 02/04/2025 9:30 AM EDT Medication Management [facility] [address] [place] [address] Madhuri Becker PharmD [address] [place] [address] 04/16/2025 9:15 AM EDT Office Visit [facility] [address] [place] [address] Royal Pitt MD [address] [place] [address] documented as of this encounter Goals Goal [...] documented as of this encounter Care Teams Record Retrieval Specialist Relationship Specialty Start Date End Date NameRoyal MD [address] [place] [address] PCP - General Family Medicine 06/16/19 Madhuri Becker PharmD [address] [place] [address] Pharmacist Internal Medicine 03/19/23 documented as of this encounter
== END 2025-01-26 10:38 | disposition home or self-care (01) ==
PROVIDERS: PCP Internal Medicine Geriatric Medicine; Visit Provider Nurse Practitioner Family
DX: J45.909 Unspecified asthma, uncomplicated (principal); R06.09 Other forms of dyspnea; J94.8 Other specified pleural conditions; R06.00 Dyspnea, unspecified
CPT/HCPCS: 99214

== ENCOUNTER → 2025-01-26 09:41 | Outpatient (BNVA) | payer OTHER, SELFPAY | PROVIDERS: PCP Internal Medicine Geriatric Medicine; Visit Provider Nurse Practitioner Family | DX: J45.909 Unspecified asthma, uncomplicated (principal); J94.8 Other specified pleural conditions; R06.09 Other forms of dyspnea; R06.00 Dyspnea, unspecified | CPT/HCPCS: 99212 ==

== ENCOUNTER 2025-02-11 09:21 | Outpatient (AMB) | payer OTHER, SELFPAY ==
--- NOTE | 2025-02-11 09:29 | A.OFFVIS_ITS ---
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 No complaints. Last Pap/HPV was many years ago, no history of abnormal Pap smears over the last 25 years Last Mammogram was BI-RADS 1 in 09/11 Last Colonoscopy was in 10/07 the recommendation was to repeat in 5 years according the patient Last DEXA scan was in 08/10 which showed osteoporosis and the patient has been on alendronate 70 mg p.o. 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 Housing: Apartment Do you presently have visiting nurse or other home services: Yes Alcohol intake: never Patient Tobacco Use Status: Former Tobacco user Years Smoked: quit 6 years ago service: No Current occupational status: disabled Sexual orientation: Straight/Heterosexual Gender identity: Female Female Reproductive History Menstrual Age of Menarche: 14 Total pregnancies: 6 Full term: 6 Number of Living Children: 5 Date of Mammogram: 08/29/24 (bi rad 1) Date of last Bone Density Screenin08/15/22 Review of Systems Const All systems reviewed & are unremarkable except as noted in HPI and below Card Reports as per HPI Resp Reports as per HPI GI Reports as per HPI and Reports no additional complaints Reports as per HPI Physical Exam Vital Signs: Last Vital Signs BP 130/70 02/11/25 09:35 BMI result Body Mass Index 41.2 Const General: cooperative, healthy appearing and comfortable Chest Chest palpation & inspection: normal inspection of the chest and normal palpation of entire chest wall Breast/axilla inspection: normal inspection of the breasts (R wnl. L surgically absent) and normal inspection of the axillae Breast/axilla palpation: normal palpation of the breasts, normal palpation of the axillae and no axillary lymphadenopathy Resp Effort & Inspection: normal respiratory effort Auscultation: clear to auscultation bilaterally Percussion: percussion normal Cardio Palpation: normal PMI Rate: regular rate Rhythm: regular rhythm Heart sounds: no murmurs and no rubs Peripheral pulses: Peripheral pulses 2+ throughout GI Inspection: Yes normal to inspection Palpation (GI): Soft to palpation, nontender, no guarding, not rigid and No hepatosplenomegaly present Percussion: Yes normal to percussion Auscultation: normal bowel sounds Rectal Exam - Female: deferred General: Yes bladder normal to palpation External Female Exam: No lesion Speculum Exam - Vagina: normal appearance of the vagina, normal palpation, normal vaginal discharge and not erythematous Speculum Exam - Cervix: normal appearance of the cervix and normal palpation Bimanual exam- vagina & uterus: normal bimanual exam, normal palpation, uterine size normal, bladder normal to palpation, consistency normal and normal palpation Bimanual Exam- Adnexa, other: normal adnexae, no masses and no tenderness Assessment & Plan Assessment & Plan (1) Well woman exam: Code(s): Z01.419 - Encounter for gynecological examination (general) (routine) without abnormal findings Category: Medical Plan: Co testing not indicated since the patient 's age is above 65 with no history of abnormal Pap smears last 25 years. Counseled the patient about the recommended dietary allowance of 1200 mg of Calcium & 800 IU of vitamin D. Instructions given the patient to schedule next screening Mammogram in 09/12. Referred her for screening colonoscopy done. Will order DEXA scan . The patient was instructed to perform monthly self-breast exams and to schedule a 2 week DEXA scan follow-up appointment and an annual exam in a year; All questions answered and the patient verbalized understanding. Orders: Orders XR DEXA axial skeleton Today Z78.0 - Asymptomatic menopausal state Referrals Gastroenterology Referral Z12.11 - Encounter for screening for malignant neoplasm of colon Coding Level of Care Code Est Pt Prev Care 40-64y(71084) Diagnoses Well woman exam Z01.419
[2025-02-11 09:35] VITALS: BP 130/70; BMI 41.2
--- OUTSIDE RECORDS SUMMARY | 2025-02-11 10:22 | XMS_ITS | Encounter Summary ---
Author Organization [employer] Address [address] [facility] 7t [place] [address] Care Team Providers Care Climatology Teacher Name Role Phone Name, Royal BEATTY Primary Care Provider [phone] Madhuri Becker PharmD Unavailable [phone] Encounter Details Date Type Department Care Team (Latest Contact Info) Description 01/30/2025 Travel Social History Tobacco Use Types Packs/Day Years [...] Care Team (Late st Contact Info) Description 02/27/2025 9:30 AM EDT Medication Management [facility] [address] [place] [address] Madhuri Becker PharmD [address] [place] [address] 04/16/2025 9:15 AM EDT Office Visit [facility] [address] [place] [address] Name, MD Royal [address] [place] [address] [phone] documented as of this encounter Goals Goal [...] documented as of this encounter Care Teams Climatology Teacher Relationship Specialty Start Date End Date NameRoyal MD [address] [place] [address] PCP - General Family Medicine 06/16/19 Madhuri Becker, AlissonD [address] [place] [address] Pharmacist Internal Medicine 03/19/23 documented as of this encounter
--- OUTSIDE RECORDS SUMMARY | 2025-02-11 10:22 | XMS_ITS | Encounter Summary ---
Author Organization [employer] [facility] Address [address] [place] [address] 7t [place] [address] Care Team Providers Care Research Associate Name Role Phone Name, Royal BEATTY Primary Care Provider [phone] Madhuri Becker PharmD Unavailable [phone] Encounter Details Date Type Department Care Team ([facility] Contact Info) Description 01/29/2023 Orders Only [facility] [address] [place], [place] [phone] Remedios Rider LPN Social History Tobacco Use [...] Upcoming Encounters Date Type Department Care Team ([facility] Contact Info) Description 02/27/2025 9:30 AM EDT Medication Management [facility] [address] [place] [address] Madhuri Becker, PharmD [address] [place] [address] 04/16/2025 9:15 AM EDT Office Visit [facility] [address] [place] [address] Name, MD Royal [address] [place] [address] documented as of this encounter Visit Diagnoses Not on filedocumented in this encounter Additional Health Concerns Assessment Noted Time PHQ-9 Depression Total Score: 0 11/09/20 22 11:52 AM EST documented as of this encounter Care Teams Research Associate Relationship Specialty Start Date End Date Name, MD Royal [address] [place] [address] PCP - General Family Medicine 06/16/19 Madhuri Becker PharmD [address] [place] [address] Pharmacist Internal Medicine 03/19/23 documented as of this encounter
--- OUTSIDE RECORDS SUMMARY | 2025-02-11 10:22 | XMS_ITS | Encounter Summary ---
Author Organization [facility] [place], Address [address] [address] Phone Care Team Providers Care Paleobotanist Name Role Phone Name, Royal BEATTY Primary Care Provider [phone] Encounter Details Date Type Department Care Team ([facility] Contact Info) Description 05/30/2024 Documentation Only [facility] [address] [place] [address] Elidia Cruz [place] [address] [place] [phone] Social History Tobacco Use Types Packs/Day Years [...] Upcoming Encounters Date Type Department Care Team ([facility] Contact Info) Description 02/20/2025 3:45 PM EDT Office Visit [facility] [address] [place] [address] Abiel Gross MD [address] [facility] [place] [phone] documented as of this encounter Visit Diagnoses Not on filedocumented in this encounter Care Teams Paleobotanist Relationship Specialty Start Date End Date Name, MD Royal [address] [place] [address] PCP - General 09/23/19 documented as of this encounter
--- OUTSIDE RECORDS SUMMARY | 2025-02-11 10:22 | XMS_ITS | Encounter Summary ---
Author Organization [facility] [place], Address [address] [address] Phone Care Team Providers Care Religious Leader Name Role Phone Name, Royal BEATTY Primary Care Provider [phone] Reason for Visit * Reason Comments Med Refill Encounter Details Date Type Department Care Team ([facility] Contact Info) Description 11/06/2022 Refill [facility] [address] [place] [phone] Abiel Gross MD [address] [place] [address] [place] [address] Social History Tobacco Use Types [...] Encounters Date Type Department Care Team ([facility] Contact Info) Description 02/20/2025 3:45 PM EDT Office Visit [facility], [address] [facility] [place] [address] Abiel Gross MD [address] [place] [address] [place] [address] documented as of this encounter Visit Diagnoses Not on filedocumented in this encounter Care Teams Religious Leader Relationship Specialty Start Date End Date Name, MD Royal [address] [place] [address] PCP - General 09/23/19 documented as of this encounter
--- OUTSIDE RECORDS SUMMARY | 2025-02-11 10:22 | XMS_ITS | Encounter Summary ---
Author Organization [employer] Address [address] [facility] 7t [place] [address] Care Team Providers Care Fence Erector Supervisor Name Role Phone Name, Royal BEATTY Primary Care Provider [phone] Madhuri Becker PharmD Unavailable [phone] Reason for Visit * Reason Onset Date Comments Created In Error 07/30/2024 Encounter Details Date Type Department Care Team ([facility] Contact Info) Description 07/30/2024 Telephone [facility] [address] [place] [address] Name, MD Royal [address] [place] [address] Created In Error Social History Tobacco Use [...] Description 02/27/2025 9:30 AM EDT Medication Management [address] [address] aMdhuri Becker, PharmD [address] [place] [address] 04/16/2025 9:15 AM EDT Office Visit [address] [phone] Name, MD Royal [address] [place] [address] documented as of this encounter Goals Goal [...] documented as of this encounter Care Teams Fence Erector Supervisor Relationship Specialty Start Date End Date Name, MD Royal [address] [place] [address] PCP - General Family Medicine 06/16/19 Madhuri Becker PharmD [address] [place] [address] Pharmacist Internal Medicine 03/19/23 documented as of this encounter
--- OUTSIDE RECORDS SUMMARY | 2025-02-11 10:22 | XMS_ITS | Encounter Summary ---
Author Organization [employer] [facility] Address [address] [place] [address] 7t [place] [address] Care Team Providers Care Loom Fixer Helper Name Role Phone Name, Royal BEATTY Primary Care Provider [phone] Madhuri Becker PharmD Unavailable [phone] Reason for Visit * Reason Comments Med Refill Encounter Details Date Type Department Care Team ([facility] Contact Info) Description 05/31/2023 Refill [facility] [address] [place] [address] Name, MD Royal [address] [place] [address] Social History Tobacco Use Types Packs/Day Years [...] Date Type Department Care Team ([facility] Contact Info) Description 02/27/2025 9:30 AM EDT Medication Management [facility] [address] [place] [address] Madhuri [place] [address] 04/16/2025 9:15 AM EDT Office Visit [facility] [address] [place] [address] Name, [place] [address] documented as of this encounter Goals Goal [...] documented as of this encounter Care Teams Loom Fixer Helper Relationship Specialty Start Date End Date Name, MD Royal [address] [place] [address] PCP - General Family Medicine 06/16/19 Madhuri Becker PharmD [address] [place] [address] [phone] Pharmacist Internal Medicine 03/19/23 documented as of this encounter
--- OUTSIDE RECORDS SUMMARY | 2025-02-11 10:22 | XMS_ITS | Clinical Summary ---
Author Organization [facility] [place], Address [address] [place] [address] [place] [address] Phone Care Team Providers Care Retail Advertising Account Executive Name Role Phone Name, Royal BEATTY Primary Care Provider [phone] Allergies No known active allergies Medications acetaminophen [...] 11/20/2019 Type 2 diabetes mellitus without complication Immunizations Name Administration Dates Next Due Influenza, [...] Visit [facility], [address] [place] [address] Abiel Gross MD [address] [place] [address] Health Maintenance Due Date Last Done [...] PM EDT) Hemoglobin A1C 9.2(H) (4.0-5.6) % [facility] Comment: MONITORING: In known diabetic patients, hemoglobin A1c targets should be discussed with health care provider. DIAGNOSTIC USE: ??The [place] Diabetes Association (ADA) and the World Health [...] Supplement 1 Testing performed or reported by [facility], a Service of [facility], [address] [place] [address] Geetha Meléndez MD, Keyboarding Clerk Blood (Blood, Venous) 05/16/2021 4:21 PM EDT 05/16/2021 4:26 PM EDT Abiel Gross MD LAB BLOOD ORDERABLES Final Result [facility] from Last 3 Months or Most Recently Relevant to Health Maintenance Insurance MEDICARE MEDICAID [place] Care Teams Retail Advertising Account Executive Relationship Specialty Start Date End Date Name, MD Royal [address] [place] [address] PCP - General 09/23/19
--- OUTSIDE RECORDS SUMMARY | 2025-02-11 10:22 | XMS_ITS | Encounter Summary ---
Author Organization [facility] [place], Address [address] [address] Phone Care Team Providers Care Associate Web Developer Name Role Phone Name, Royal BEATTY Primary Care Provider [phone] Encounter Details Date Type Department Care Team ([facility] Contact Info) Description 04/09/2023 Documentation Only [facility] [address] [place] [address] [place] [address] [place] [phone] Social History Tobacco Use Types Packs/Day Years [...] Upcoming Encounters Date Type Department Care Team ([facility] Contact Info) Description 02/20/2025 3:45 PM EDT Office Visit [facility] [address] [facility] [place] [address] Abiel Gross MD [address] [place] [address] [place] [phone] documented as of this encounter Visit Diagnoses Not on filedocumented in this encounter Care Teams Associate Web Developer Relationship Specialty Start Date End Date Name, MD Royal [address] [place] [address] PCP - General 09/23/19 documented as of this encounter
--- OUTSIDE RECORDS SUMMARY | 2025-02-11 10:22 | XMS_ITS | Encounter Summary ---
Author Organization [employer] Address [address] [facility] 7t [place] [address] Care Team Providers Care Scrap Drop Crane Operator Name Role Phone Name, Royal BEATTY Primary Care Provider [phone] Madhuri Becker PharmD Unavailable [phone] Reason for Visit * Reason Comments Med Refill Encounter Details Date Type Department Care Team ([facility] Contact Info) Description 02/05/2025 Refill [facility] [address] [place] [address] [facility] [address] [place] [address] Essential hypertension Social History Tobacco Use Types [...] Description 02/27/2025 9:30 AM EDT Medication Management [facility] [address] [place] [address] Madhuri Becker, PharmD [address] [place] [address] 04/16/2025 9:15 AM EDT Office Visit [address] [address] Name, MD Royal [address] [place] [address] documented as of this encounter Goals Goal [...] documented as of this encounter Care Teams Scrap Drop Crane Operator Relationship Specialty Start Date End Date Name, MD Royal [address] [place] [address] PCP - General Family Medicine 06/16/19 Madhuri Becker PharmD [address] [place] [address] Pharmacist Internal Medicine 03/19/23 documented as of this encounter
--- OUTSIDE RECORDS SUMMARY | 2025-02-11 10:22 | XMS_ITS | Encounter Summary ---
Author Organization [employer] Address [address] [facility] 7t [place] [address] Care Team Providers Care Design/Animation Instructor Name Role Phone Name, Royal BEATTY Primary Care Provider [phone] Madhuri Becker PharmD Unavailable [phone] Reason for Visit * Reason Onset Date Comments Appointment Request 01/01/2025 Encounter Details Date Type Department Care Team ([facility] Contact Info) Description 01/01/2025 Telephone [facility] [address] [place] [address] Name, MD Royal [address] [place] [address] Appointment Request Social History Tobacco Use Types [...] 01/01/2025 8:11 AM EST Tc from pt PRODUCTION SUPV requesting to r/s Pt apt for 01/01/25. Contact pt PRODUCTION SUPV at [phone] documented in this encounter Plan of Treatment Upcoming Encounters Date Type Department Care Team ([facility] st Contact Info) Description 02/27/2025 9:30 AM EDT Medication Management [facility] [address] [place] [address] Madhuri Becker, PharmD [address] [place] [address] 04/16/2025 9:15 AM EDT Office Visit [facility] [address] [place] [address] [phone] Name, MD Royal [address] [place] [address] documented as of this encounter Goals Goal [...] documented as of this encounter Care Teams Design/Animation Instructor Relationship Specialty Start Date End Date Name, MD Royal [address] [place] [address] PCP - General Family Medicine 06/16/19 Madhuri Becker PharmD [address] [place] [address] Pharmacist Internal Medicine 03/19/23 documented as of this encounter
--- OUTSIDE RECORDS SUMMARY | 2025-02-11 10:22 | XMS_ITS | Encounter Summary ---
Author Organization [facility] Address [address] [place] [address] 7t [place] [address] Care Team Providers Care Museum Preparator Name Role Phone Name, Royal BEATTY Primary Care Provider [phone] Madhuri Becker PharmD Unavailable [phone] Reason for Visit * Reason Onset Date Comments New Script 03/16/2023 Encounter Details Date Type Department Care Team ([facility] Contact Info) Description 03/16/2023 Telephone [facility] [address] [place] [address] Name, MD Royal [address] [place] [address] New Script Social History Tobacco Use Types [...] Bras . Please Fax over script at [phone] If any question please contact [place] at [phone] documented in this encounter Plan of Treatment Upcoming Encounters Date Type Department Care Team (Late st Contact Info) Description 02/27/2025 9:30 AM EDT Medication Management [address] [address] Madhuri Becker, PharmD [address] [place] [address] 04/16/2025 9:15 AM EDT Office Visit [facility] [address] [place] [address] Name, MD Royal [address] [place] [address] [phone] documented as of this encounter Goals Goal [...] documented as of this encounter Care Teams Museum Preparator Relationship Specialty Start Date End Date NameRoyal MD [address] [place] [address] [phone] PCP - General Family Medicine 06/16/19 Madhuri Becker, AlissonD [address] [place] [address] Pharmacist Internal Medicine 03/19/23 documented as of this encounter
--- OUTSIDE RECORDS SUMMARY | 2025-02-11 10:22 | XMS_ITS | Encounter Summary ---
Author Organization [facility], Address [address] [address] Phone Care Team Providers Care Cord Splicer Name Role Phone Name, Royal BEATTY Primary Care Provider [phone] Encounter Details Date Type Department Care Team (Late Contact Info) Description 01/18/2022 Documentation Only [facility] [address] [place] [address] Abiel Gross MD [address] [place] [address] [place] [address] Social History Tobacco Use Types [...] Visit [facility] [address] [place] [address] Abiel Gross MD [address] [place] [address] [place] [phone] documented as of this encounter Visit Diagnoses Not on filedocumented in this encounter Care Teams Cord Splicer Relationship Specialty Start Date End Date Name, MD Royal [address] [place] [address] PCP - General 09/23/19 documented as of this encounter
--- OUTSIDE RECORDS SUMMARY | 2025-02-11 10:22 | XMS_ITS | Encounter Summary ---
Author Organization [employer] Address [address] [facility] 7t [place] [address] Care Team Providers Care Beef Grinder Name Role Phone Name, Royal BEATTY Primary Care Provider [phone] Madhuri Becker PharmD Unavailable [phone] Reason for Visit * Reason Onset Date Comments Appointment Request 11/03/2024 Encounter Details Date Type Department Care Team ([facility] Contact Info) Description 11/03/2024 Telephone [facility] [address] [place] [address] Name, MD Royal [address] [place] [address] Appointment Request Social History Tobacco Use Types [...] 11/03/2024 9:22 AM EST Tc from [place] ([facility]) requesting to reschedule today's CDTM visit. Please contact [place] at [phone]. (Macanese Speaker) documented in this encounter Plan of Treatment Upcoming Encounters Date Type Department Care Team (Late st Contact Info) Description 02/27/2025 9:30 AM EDT Medication Management [facility] [address] [place] [address] Madhuri Becker, PharmD [address] [place] [address] 04/16/2025 9:15 AM EDT Office Visit [facility] [address] [place] [address] Name, MD Royal [address] [place] [phone] documented as of this encounter Goals Goal [...] documented as of this encounter Care Teams Beef Grinder Relationship Specialty Start Date End Date Name, MD Royal [address] [place] [address] PCP - General Family Medicine 06/16/19 Madhuri Becker PharmD [address] [place] [address] Pharmacist Internal Medicine 03/19/23 documented as of this encounter
--- OUTSIDE RECORDS SUMMARY | 2025-02-11 10:22 | XMS_ITS | Encounter Summary ---
Author Organization [facility] Address [address] [place] [address] 7t [place] [address] Care Team Providers Care Orthotist/Prosthetist Name Role Phone Name, Royal BEATTY Primary Care Provider [phone] Madhuri Becker PharmD Unavailable [phone] Reason for Referral * Imaging (Routine) - Authorized Specialty Diagnoses / Procedures Referred By Contac t Referred To Contact Radiology Diagnoses Neck mass Procedures US Head Neck Soft Tissue Alcon Sanchez MD [address] [place] [address] Phone: tel: fax: [address] Phone: tel: fax: Referral ID Status Reason Start Date Expiration Date V isits Requested Visits Authorized [id number] Authorized 01/30/2025 01/30/2026 1 1 Reason for Visit * Reason Comments Back Pain Encounter Details Date Type Department Care Team (Late st Contact Info) Description 01/30/2025 10:40 AM EDT Office Visit [facility] [address] [place] [address] [phone] Alcon Sanchez MD [address] [place] [address] [phone] Upper back pain on right side (Primary Dx); Neck mass Social History Tobacco Use Types Packs/Day Years [...] is your housing situation today? I have bernieleobardo hayes 03/04/[address] you [...] AM EDT documented as of this encounter Last Filed Vital Signs Vital Sign Reading Time Taken Comments Blood Pressure 156/81 01/30/2025 10:30 AM EDT Pulse 87 01/30/2025 10:30 AM EDT Temperature 36.9 ??C (98.4 ??F) 01/30/2025 10:30 AM E DT Respiratory Rate 18 01/30/2025 10:30 AM EDT Oxygen Saturation 97% 01/30/2025 10:30 AM EDT Inhaled Oxygen Concentration - - Weight 111 kg (244 lb) 01/30/2025 10:30 AM EDT Height - - Body Mass Index 39.68 06/10/2024 3:14 PM EDT documented in this encounter Progress Notes * Alcon Sanchez MD - 01/30/2025 10:40 AM EDT Subjective History was provided by the patient and son-in-law . Luz Elena Church is a 79 y.o. female who presents for evaluation of right upper back/shoulder pain for 1 month. Reports intermittent numbness of her right arm/hand. Denies any trauma or fall. Denies any change in activity. Denies new sleeping arrangement. Denies F/C. Denies recent travel. History of right breast cancer s/p mastectomy in 1998. Also with 2cm soft, tender mass in the supraclavicular area. Underlying CKD with BUN/Cr 61/3.07 (04/2024). Objective Vitals: 01/30/25 1030 BP: (!) 156/81 BP Location: Right arm Patient Position: Sitting BP Cuff Size: Adult Pulse: 87 Resp: 18 Temp: 98.4 ??F (36.9 ??C) TempSrc: Temporal SpO2: 97% Weight: 244 lb (111 kg) Physical Exam Vitals reviewed. Constitutional: General: She is not in acute distress. Appearance: Normal appearance. She is not ill-appearing, toxic-appearing or diaphoretic. HENT: Head: Normocephalic and atraumatic. Right Ear: External ear normal. Left Ear: External ear normal. Mouth/Throat: Mouth: Mucous membranes are moist. Pharynx: Oropharynx is clear. Eyes: Extraocular Movements: Extraocular movements intact. Conjunctiva/sclera: Conjunctivae normal. Cardiovascular: Rate and Rhythm: Normal rate and regular rhythm. Heart sounds: Normal heart sounds. Pulmonary: Effort: Pulmonary effort is normal. Breath sounds: Normal breath sounds. Musculoskeletal: Cervical back: Neck supple. No rigidity. Comments: Tenderness and hypertrophy at the upper fibers of right trapezius musculature; increased tenderness with lateral rotation of the neck towards the right; no scoliosis or kyphosis; no midlinecervical spine tenderness; 2cm soft, minimally tender mass in the right supraclavicular fossa area;BUE motor 5/5; sensation intact to LT Skin: General: Skin is warm and dry. Neurological: General: No focal deficit present. Mental Status: She is alert and oriented to person, place, and time. Mental status is at baseline. Psychiatric: Mood and Affect: Mood normal. Behavior: Behavior normal. Thought Content: Thought content normal. Judgment: Judgment normal. No visits with results within 2 Day(s) from this visit. Latest known visit with results is: Medication Management on 12/04/2024 Component Date Value Ref Range Status Hemoglobin A1C 12/04/2024 9.5 (A) 4.0 - 6.0 % Final QC Media Lot # 12/04/2024 [id number] Final Luz Elena was seen today for back pain. Diagnoses and all orders for this visit: Upper back pain on right side (Primary) - Diclofenac Sodium 1 % gel; Apply 1 Application topically if needed in the morning, at noon, in the evening, and at bedtime (pain) for up to 7 days. Neck mass - US Head Neck Soft Tissue; Future Patient presents to [facility] due to 1-month duration of right posterior shoulder/upper back pain Denies any injury/trauma Suspect right upper trapezius strain Appears to have some impingement symptoms, but no radicular symptoms Discussed treatment options Encouraged warm compress, massage, and topical Diclofenac prn Also with a 2cm soft, tender mass in the right supraclavicular fossa area Given history of breast cancer s/p mastectomy, will check U/S to further evaluate Indications for UC/ER use reviewed Advised to contact the clinic if any worsening or persistent symptoms documented in this encounter Plan of Treatment Upcoming Encounters Date Type Department Care Team (Late st Contact Info) Description 02/27/2025 9:30 AM EDT Medication Management [facility] [address] [place] [address] Madhuri Becker, Jazzmine [address] [place] [address] 04/16/2025 9:15 AM EDT Office Visit [facility] [address] [place] [phone] Name, MD Royal [address] [place] [address] Scheduled Orders Name Type Priority Associated Diagnoses Orde r Schedule US Head Neck Soft Tissue Imaging Routine Neck mass Expected: 01/30/2025, Expires: 01/30/2026 documented as of this encounter Goals Goal [...] as of this encounter Visit Diagnoses Diagnosis Upper back pain on right side- Primary Neck mass Swelling, mass, or lump in head and neck documented in this encounter Additional Health Concerns Assessment Noted Time PHQ-9 Depression Total Score: 0 03/11/20 24 2:52 PM EDT documented as of this encounter Care Teams Orthotist/Prosthetist Relationship Specialty Start Date End Date Name, MD Royal [address] [place] [address] PCP - General Family Medicine 06/16/19 Madhuri Becker PharmD [address] [place] [address] Pharmacist Internal Medicine 03/19/23 documented as of this encounter
--- OUTSIDE RECORDS SUMMARY | 2025-02-11 10:22 | XMS_ITS | Encounter Summary ---
Author Organization [employer] Address [address] [facility] 7t [place] [address] Care Team Providers Care Mri Assistant Name Role Phone Name, Royal BEATTY Primary Care Provider [phone] Madhuri Becker PharmD Unavailable [phone] Encounter Details Date Type Department Care Team (Latest Contact Info) Description 02/04/2025 Travel Social History Tobacco Use Types Packs/Day [...] Description 02/27/2025 9:30 AM EDT Medication Management [facility] [address] [place] [address] Madhuri Becker PharmD [address] [place] [address] 04/16/2025 9:15 AM EDT Office Visit [facility] [address] [place] [phone] Name, MD Royal [address] [place] [address] [phone] documented as of this encounter Goals Goal [...] documented as of this encounter Care Teams Mri Assistant Relationship Specialty Start Date End Date NameRoyal MD [address] [place] [address] PCP - General Family Medicine 06/16/19 Madhuri Becker, AlissnoD [address] [place] [address] Pharmacist Internal Medicine 03/19/23 documented as of this encounter
--- OUTSIDE RECORDS SUMMARY | 2025-02-11 10:22 | XMS_ITS | Encounter Summary ---
Author Organization [employer] Address [address] [facility] 7t [place] [address] Care Team Providers Care Wire Machine Cutter Name Role Phone Name, Royal BEATTY Primary Care Provider [phone] Madhuri Becker PharmD Unavailable [phone] Reason for Visit * Reason Comments Med Refill Encounter Details Date Type Department Care Team ([facility] Contact Info) Description 01/25/2025 Refill [facility] [address] [place] [address] Name, MD Royal [address] [place] [address] Social History Tobacco Use Types Packs/Day Years [...] Description 02/27/2025 9:30 AM EDT Medication Management [facility] [address] [place] [address] Madhuri Becker, PharmD [address] [place] [address] 04/16/2025 9:15 AM EDT Office Visit [facility] [address] [place] [address] Name, MD Royal [address] [place] [address] documented as of this encounter Goals Goal [...] documented as of this encounter Care Teams Wire Machine Cutter Relationship Specialty Start Date End Date Name, MD Royal [address] [place] [address] PCP - General Family Medicine 06/16/19 Madhuri Becker, Jazzmine [address] [place] [address] Pharmacist Internal Medicine 03/19/23 documented as of this encounter
--- OUTSIDE RECORDS SUMMARY | 2025-02-11 10:22 | XMS_ITS | Encounter Summary ---
Author Organization [facility], Address [address] [place] [phone] Phone Care Team Providers Care Cook Short Order Name Role Phone Name, Royal BEATTY Primary Care Provider [phone] Encounter Details Date Type Department Care Team ([facility] Contact Info) Description 12/19/2022 Documentation Only [facility] [address] [place] [address] Polina Sarmiento [address] [place] [phone] Social History Tobacco Use Types Packs/Day [...] Upcoming Encounters Date Type Department Care Team ([facility] Contact Info) Description 02/20/2025 3:45 PM EDT Office Visit [facility] [address] [place] [address] Abiel Gross MD [address] [place] [address] [place] [phone] documented as of this encounter Visit Diagnoses Not on filedocumented in this encounter Care Teams Cook Short Order Relationship Specialty Start Date End Date Name, MD Royal [address] [place] [address] PCP - General 09/23/19 documented as of this encounter
--- OUTSIDE RECORDS SUMMARY | 2025-02-11 10:22 | XMS_ITS | Encounter Summary ---
Author Organization [facility] Address [address] [place] [address] 7t [place] [address] Care Team Providers Care Hog Raiser Name Role Phone Name, Royal BEATTY Primary Care Provider [phone] Madhuri Becker PharmD Unavailable [phone] Encounter Details Date Type Department Care Team (Late st Contact Info) Description 11/02/2022 Orders Only [facility] [address] [place] [address] Nory Brown LPN Social History Tobacco Use [...] 9:30 AM EDT Medication Management [facility] [address] [place] [address] Madhuri Becker, PharmD [address] [place] [address] 04/16/2025 9:15 AM EDT Office Visit [facility] [address] [place] [address] Name, MD Royal [address] [place] [address] documented as of this encounter Visit Diagnoses Not on filedocumented in this encounter Care Teams Hog Raiser Relationship Specialty Start Date End Date Name, MD Royal [address] [place] [address] PCP - General Family Medicine 06/16/19 Madhuri Becker PharmD [address] [place] [address] Pharmacist Internal Medicine 03/19/23 documented as of this encounter
--- OUTSIDE RECORDS SUMMARY | 2025-02-11 10:22 | XMS_ITS | Encounter Summary ---
Author Organization [facility], Address [address] [address] Phone Care Team Providers Care Back Up Scan Coordinator Name Role Phone Name, Royal BEATTY Primary Care Provider [phone] Encounter Details Date Type Department Care Team (Late Contact Info) Description 05/30/2023 Documentation Only [facility] [address] [place] [address] Abiel Gross MD [address] [place] [address] [place] [address] Social History Tobacco Use Types [...] Visit [facility] [address] [place] [address] Abiel Gross MD [address] [place] [address] [place] [address] documented as of this encounter Visit Diagnoses Not on filedocumented in this encounter Care Teams Back Up Scan Coordinator Relationship Specialty Start Date End Date Name, MD Royal [address] [place] [address] PCP - General 09/23/19 documented as of this encounter
--- OUTSIDE RECORDS SUMMARY | 2025-02-11 10:22 | XMS_ITS | Clinical Summary ---
Author Organization [employer] Address [address] [facility] 7t [place] [address] Care Team Providers Care Bingo Usher Name Role Phone Name, Royal BEATTY Primary Care Provider [phone] Madhuri Becker PharmD Unavailable [phone] Allergies No known active allergies Medications metoprolol tartrate (Lopressor) 25 MG tablet TAKE 1 TABLET BY MOUTH TWICE DAILY IN THE MORNING AND IN THE EVENING 11/08/20 22 Active cholecalciferol (Vitamin D-3) 25 MCG tablet Take 25 mcg by mouth in the morning. 10/17/20 22 Active furosemide (Lasix) 40 MG tablet take 1 tablet by oral route twice daily 05/01/20 22 Active calcitriol (Rocaltrol) 0.25 MCG capsule Take 0.25 mcg by mouth Once per day. 03/23/20 23 Active acetaminophen (Tylenol 8 Hour) 650 MG ER tablet TAKE 1 TABLET BY MOUTH EVERY 8 HOURS NEEDED FOR MILD PAIN. DO NOT BREAK, CRUSH, DISSOLVE OR CHEW 07/11/20 23 Active TRUEplus Lancets 33G miscIndications :Type 2 diabetes mellitus with stage 4 chronic kidney disease, with long-term current use of insulin ([facility]) Use to test blood sugar three times daily 100 each 11 11/30/19 24 Active albuterol (Ventolin HFA) 108 (90 Base) MCG/ACT inhalerIndicati ons:Viral URI Inhale 2 puffs every 6 (six) hours if needed for wheezing or shortness of breath. 18 g 1 08/14/20 24 Active gabapentin (Neurontin) 100 MG capsule TAKE 1 CAPSULE BY MOUTH AT BEDTIME 30 capsule 5 09/08/20 24 Active insulin pen needle (BD Pen Needle Rachele U/F) 32G x 4 mm miscIndications :Type 2 diabetes mellitus with stage 4 chronic kidney disease, with long-term current use of insulin ([facility]) USE UP TO THREE TIMES DAILY FOR INSULIN 100 each 5 09/11/20 24 Active calcium carbonate 1500 (600 Ca) MG tabletIndicatio ns:CKD stage 4 due to type 2 diabetes mellitus ([facility]) TAKE 1 TABLET BY MOUTH TWICE DAILY IN THE MORNING AND IN THE EVENING WITH FOOD 180 tablet 3 10/07/20 24 Active omeprazole (PriLOSEC) [address] capsule TAKE 1 CAPSULE BY MOUTH EVERY MORNING 30-60 MINUTES BEFORE A MEAL 90 capsule 1 10/09/20 24 Active amLODIPine (Norvasc) 2.5 MG tabletIndicatio ns:Essential hypertension TAKE 1 TABLET BY MOUTH EVERY MORNING 90 tablet 1 12/01/19 25 Active diphenhydrAMINE (Pauline-Dryl) 25 MG tabletIndicatio ns:Generalized pruritus TAKE 1 TABLET BY MOUTH AT BEDTIME NEEDED FOR SLEEP 30 tablet 5 12/26/19 25 Active Aspirin Low Dose 81 MG EC tabletIndicatio ns:Essential hypertension TAKE 1 TABLET BY MOUTH EVERY EVENING 90 tablet 3 12/30/19 25 Active levothyroxine (Synthroid, Levoxyl) 25 MCG tabletIndicatio ns:Essential hypertension TAKE 1 TABLET BY MOUTH EVERY MORNING 90 tablet 3 12/30/19 25 Active losartan (Cozaar) 100 MG tablet TAKE 1 TABLET BY MOUTH EVERY MORNING 30 tablet 5 01/27/20 25 Active glucose 4 g chewable tabletIndicatio ns:Type 2 diabetes mellitus with stage 4 chronic kidney disease, with long-term current use of insulin ([facility]) Chew 4 tablets (16 g) if needed for low blood sugar. (<70 mg/dL). Recheck BG after 15 minutes and repeat treatment as needed & as directed. 20 tablet 5 02/05/20 25 2025 Active insulin aspart (NovoLOG FLEXPEN) 100 UNIT/ML penIndications: Type 2 diabetes mellitus with stage 4 chronic kidney disease, with long-term current use of insulin ([facility]) Inject subQ with meals; 6 units with lunch & 6 units with dinner. 15 mL 2 02/05/20 25 Active insulin degludec (Tresiba FlexTouch) 100 UNIT/ML injectionIndica tions:Type 2 diabetes mellitus with stage 4 chronic kidney disease, with long-term current use of insulin ([facility]) Inject 24 units subQ once daily in the morning. 15 mL 2 02/05/20 25 Active Tirzepatide (Mounjaro) 10 MG/0.5ML solution auto-injectorIn dications:Type 2 diabetes mellitus with stage 4 chronic kidney disease, with long-term current use of insulin ([facility]) Inject 10 mg under the skin 1 (one) time per week. 2 mL 02/05/20 25 Active Continuous Glucose Core Mounter (FreeStyle Zoraida 3 [place]) device 1 each Once per day. Use as directed for CGM 1 each 02/05/20 25 Active Continuous Glucose Sensor (FreeStyle Zoraida 3 Plus Sensor) misc Apply 1 every 15 days as directed for CGM 2 each 02/05/20 25 Active glucose blood (FreeStyle Precision Balaji Test) test stripIndication s:Type 2 diabetes mellitus with stage 4 chronic kidney disease, with long-term current use of insulin ([facility]) Use to test blood sugar up to 3 times daily, as directed 100 each 02/05/20 25 Active rosuvastatin (Crestor) 10 MG tabletIndicatio ns:Essential hypertension TAKE 1 TABLET BY MOUTH EVERY MORNING 30 tablet 3 02/07/20 25 Active Continuous Blood Gluc Core Mounter (FreeStyle Zoraida 2 [place]) deviceIndicatio ns:Type 2 diabetes mellitus with stage 4 chronic kidney disease, with long-term current use of insulin ([facility]) Use as directed 1 each 03/02/20 23 2024 Discontinued glucose blood (FreeStyle Precision Balaji Test) test stripIndication s:Type 2 diabetes mellitus with stage 4 chronic kidney disease, with long-term current use of insulin ([facility]) Use to test blood sugar up to 3 times daily, as directed 100 each 11/30/19 24 2024 Discontinued glucose 4 g chewable tabletIndicatio ns:Type 2 diabetes mellitus with stage 4 chronic kidney disease, with long-term current use of insulin ([facility]) Chew 4 tablets (16 g) if needed for low blood sugar. (<70 mg/dL). Recheck BG after 15 minutes and repeat treatment as needed & as directed. 20 tablet 5 06/27/20 24 2024 Discontinued(R eorder (will not trigger notification to Pharmacy)) losartan (Cozaar) 100 MG tablet TAKE 1 TABLET BY MOUTH EVERY MORNING 30 tablet 5 08/07/20 24 2024 Discontinued insulin degludec (Tresiba FlexTouch) 100 UNIT/ML injectionIndica tions:Type 2 diabetes mellitus with stage 4 chronic kidney disease, with long-term current use of insulin ([facility]) Inject 26 units subQ once daily in the morning. 15 mL 2 08/25/20 24 2024 Discontinued(R eorder (will not trigger notification to Pharmacy)) Continuous Glucose Sensor (Aspire Bariatricsyle Zoraida 2 Sensor) miscIndications :Type 2 diabetes mellitus with stage 4 chronic kidney disease, with long-term current use of insulin ([facility]) TEST BLOOD SUGAR DIRECTED. CHANGE EVERY 14 DAYS. 2 each 11 09/23/20 24 2024 Discontinued insulin aspart (NovoLOG FLEXPEN) 100 UNIT/ML penIndications: Type 2 diabetes mellitus with stage 4 chronic kidney disease, with long-term current use of insulin ([facility]) Inject subQ with meals; 8 units with lunch & 6 units with dinner. 11/06/20 24 2024 Discontinued(R eorder (will not trigger notification to Pharmacy)) Tirzepatide (Mounjaro) 7.5 MG/0.5ML solution auto-injectorIn dications:Type 2 diabetes mellitus with stage 4 chronic kidney disease, with long-term current use of insulin ([facility]) Inject 7.5 mg under the skin 1 (one) time per week. 2 mL 12/04/192024 Discontinued(A lternate therapy) rosuvastatin (Crestor) 10 MG tabletIndicatio ns:Essential hypertension TAKE 1 TABLET BY MOUTH EVERY MORNING 30 tablet 01/02/20 25 2024 Discontinued(R eorder (will not trigger notification to Pharmacy)) Diclofenac Sodium 1 % gelIndications: Upper back pain on right side Apply 1 Application topically if needed in the morning, at noon, in the evening, and at bedtime (pain) for up to 7 days. 100 g 01/31/20 25 2024 Active Problems Problem Noted Date Diagnosed Date [...] Encounters Date Type Department Care Team Description 02/05/2025 Refill [facility] [address] [place], [place] [phone] aYncy Soriano FNP Essential hypertension 02/04/2025 Travel 01/30/2025 10:40 AM EDT Office Visit [facility] [address] [place] [address] Alcon Sanchez MD Upper back pain on right side (Primary Dx); Neck mass 01/30/2025 Travel 01/25/2025 Refill [facility] [address] [facility] [place] [address] Name, MD Royal 01/09/2025 Telephone [facility] [address] [place] [address] Maikel Casiano MA february recalls 01/07/2025 Orders Only [facility] External Provider, [facility] 01/02/2025 Refill [facility] [address] [place] [address] NameRoyal MD Essential hypertension 01/01/2025 Telephone [facility] [address] [place] [address] Name, MD Royal Appointment Request 12/30/2024 Telephone [facility] [address] [place] [address] Karon Esteban MA chartprep 12/30/2024 Refill [facility] [address] [place] [address] NameRoyal MD Essential hypertension 12/26/2024 Refill [facility] [address] [place] [address] Name, MD Royal Generalized pruritus 12/04/2024 Travel 11/29/2024 Refill [facility] [address] [place] [address] Name, MD Royal Essential hypertension from Last 3 Months Immunizations Name Administration [...] (244 lb) 01/30/2025 10:30 AM EDT Height 167 cm (5' 5.75 ) 06/10/2024 3:14 PM EDT Body Mass Index 39.68 06/10/2024 3:14 PM EDT Plan of Treatment Upcoming Encounters Date Type Department Care Team (Late st Contact Info) Description 02/27/2025 9:30 AM EDT Medication Management [facility] [address] [place] [address] Madhuri Becker, PharmD [address] [place] [address] 04/16/2025 9:15 AM EDT Office Visit [facility] [address] [place] [address] Name, MD Royal [address] [place] [address] Health Maintenance Due Date Last Done Comments Hepatitis C Screening 1963 Diabetes: Foot Exam 08/31/2024 08/31/2023, 08/31/2023, 08/31/2023, Additional history exists Diabetes: Hemoglobin A1C 03/04/2025 025, 08/25/2024, 06/02/2024, Additional history exists SDOH Screening 03/04/2025 03/04/2024 Depression Screening 03/11/2025 03/11/2024, 03/11/20 24 Lipid Panel 05/15/2025 05/15/2024, 060 07/2023, 06/27/2022 Alcohol/Substance Use Screening 06/10/2025 06/10/2024 [...] with long-term current use of insulin (CMS/HCC) BI MAMMOGRAM SCREENING TOMOSYNTHESIS LEFT Routine 08/29/2024 [...] EST Narrative 01/08/2025 12:18 PM EST ? [facility] ?[address] ?[place] [address] ? CT Scan Report ? Signed ? Patient: Luz Elena Montgomery ?MR#: MM ?? [id number] ? : 1945 ?Acct:[id number] ? Age/Sex: 79 / F ?ADM Date: 01/07/25 ? Loc: HO.CT ? Attending Dr: Bertah Williamson PARTS ORDER AND STOCK CLERK ? Ordering Physician: Bertha Williamson NP ?? Date of Service: 01/07/25 ?? Procedure(s): CT chest wo IV con ?? Accession Number(s): [id number] ? cc: Royal Pitt MD; Stucenski,Bertha PARTS ORDER AND STOCK CLERK ? Report Number: ?? [id number]: Total DLP = ??226.00 mGy-cm ? CLINICAL HISTORY: J94.8 - Other specified pleural conditions: Plural scarring ? CT chest without contrast ? Comparison: CT/REG/WI/SR - CT CHEST WO IV CON - [...] signed by Remedios Garcia MD in OV> ?01/08/251216 ? DD/ 16 ? TD/TT: 01/08/251216 ? Psychiatry Resident: ? Procedure Note Luiz Sherman - 01/08/[address] [address] [address] Scan Report Signed Patient: Luz Elena Montgomery AMR#: [id number] : 6Acct:[id number] Age/Sex: 79 / FADM Date: 01/07/25 Loc: HO.CT Attending Dr: Bertha Williamson PARTS ORDER AND STOCK CLERK Ordering Physician: Bertha Williamson NP Date of Service: 01/07/25 Procedure(s): CT chest wo IV con Accession Number(s): [id number] cc: Name,Royal BEATTY; MillykurtBertha NP Report Number: [id number]: Total DLP = 226.00 mGy-cm CLINICAL HISTORY: J94.8 - Other specified pleural conditions: Pluralscarring CT chest without contrast Comparison: CT/REG/WI/SR - CT CHEST WO IV CON - [...] 01/08/25 1217 DD/ 1217 TD/TT: 01/08/25 1217 Psychiatry Resident: [facility] External Provider IMG CT PROCEDURES Final Result * (ABNORMAL) POCT HGB A1C (12/04/2024 10:08 AM EST) Hemoglobin A1C 9.5(A) 4.0 - 6.0 % QC Media Lot # [id number] Blood 12/04/2024 10:0 8 AM EST us Royal Name MD POINT OF CARE TEST ENTER/EDIT OR DERABLES Final Result * BI Mammogram Screening Tomosynthesis Left (08/29/2024 9:45 AM EDT) Anatomical Region Laterality Modality Breast Left Mammography 08/29/2024 9:45 AM EDT Narrative 09/09/2024 4:59 PM EDT ? [facility] ? [address] ?[place] [address] ? Mammography Report ? Signed ? Patient: Luz Elena Montgomery ?MR#: MM ?? [id number] ? : 1945 ?Acct:[id number] ? Age/Sex: 79 / F ?ADM Date: 08/29/24 ? Loc: HO.MAMMO ? Attending Dr: Royal Name MD ? Ordering Physician: Name,Royal MD ?Results: 1Negative ? Date of Service: 08/29/24 ?Follow Up: 1 Year From Orig ?? inal Mammogram ? Procedure(s): MM tomosynthesis screening LT ?? Accession Number(s): [id number] ? cc: Name,Royal ? EXAMINATION: ?? MM SCREENING DIGITAL BREAST [...] by Jane Douglas, DO in OV> ? 09/09/247 ? DD/ 0945 ? TD/TT: 08/29/24 0955 ? Psychiatry Resident: ? Procedure Note Lane, Image - 09/09/2024 [facility] [address] [place] [address] [place] [address] Mammography Report Signed Patient: Luz Elena Montgomery AMR#: [id number] : 6Acct:[id number] Age/Sex: 79 / FADM Date: 08/29/24 Loc: AMRIT Attending Dr: Royal Pitt MD Ordering Physician: Royal Pittults: 1Negative Date of Service: 08/29/24Follow Up: 1 Year From Orig inal Mammogram Procedure(s): EDSON tomosynthesis screening Accession Number(s): [id number] cc: Royal Pitt MD EXAMINATION: MM SCREENING [...] DO in OV> 09/09/24 1657 DD/ TD/TT: 08/29/2455 Psychiatry Resident: Royal Pitt MD IM BI PROCEDURES Final Result * (ABNORMAL) Lipid Panel, Standard (05/15/2024 9:10 AM EDT) Triglycerides 170(H) <150 mg/dL [facility] Comment:Desirable Triglyceri de: less than 150 mg/dLBorderline High Triglyceride 150-199 mg/dLHigh Triglyceride: 200-499 mg/dLVery High Triglyceride: greater than or equal to 5OO mg/dL Cholesterol 122 <200 mg/dL [facility] Comment:Desirable Cholestero l: less than 200 mg/dLBorderline High Cholesterol: 200-239 mg/dLHigh Cholesterol: greater than 239 mg/dL LDL Cholesterol Calculated 48 <100 mg/dL [facility] Comment:Desirable LDL: less than 100 mg/dLNear Optimal/Above Optimal LDL: 110- 129 mg/dLBorderline High LDL: 130-159 mg/dLHigh LDL: 160-189 mg/dLVery High LDL: greater than or equal to 190 mg/dL HDL Cholesterol 40(L) >40 mg/dL [facility] Comment:Desirable HDL: great er than 40 mg/dL Note: This HDL assay may give artificially low results in patients with liver disease. Blood Venous blood specimen / Unknown 05/15/2024 9:10 AM EDT 05/15/2024 11:17 AM EDT us Royal Name LAB BLOOD ORDERABLES Final Resul t [facility] [address] [place] [phone] from Last 3 Months or Most Recently Relevant to Health Maintenance Insurance [facility] STANDARD [facility] Care Teams Bingo Usher Relationship Specialty Start Date End Date Name, MD Royal [address] [place] [address] PCP - General Family Medicine 06/16/19 Madhuri Becker PharmD [address] [place] [address] Pharmacist Internal Medicine 03/19/23
--- OUTSIDE RECORDS SUMMARY | 2025-02-11 10:23 | XMS_ITS | Encounter Summary ---
Author Organization [facility], Address [address] [address] Phone Care Team Providers Care Dispatcher Ship Pilot Name Role Phone Name, Royal BEATTY Primary Care Provider [phone] Encounter Details Date Type Department Care Team ([facility] Contact Info) Description 05/15/2024 Documentation Only [facility] [address] [place] [address] Elidia Cruz [place] [address] [place] [phone] Social History Tobacco Use Types Packs/Day Years [...] Upcoming Encounters Date Type Department Care Team ([facility] Contact Info) Description 02/20/2025 3:45 PM EDT Office Visit [facility] [address] [place] [address] Abiel Gross MD [address] [place] [phone] documented as of this encounter Visit Diagnoses Not on filedocumented in this encounter Care Teams Dispatcher Ship Pilot Relationship Specialty Start Date End Date Name, MD Royal [address] [place] [address] PCP - General 09/23/19 documented as of this encounter
--- OUTSIDE RECORDS SUMMARY | 2025-02-11 10:23 | XMS_ITS | Encounter Summary ---
Author Organization [employer] Address [address] [facility] 7t [place] [address] Care Team Providers Care Toolroom Attendant Name Role Phone Name, Royal BEATTY Primary Care Provider [phone] Madhuri Becker PharmD Unavailable [phone] Reason for Visit * Reason Comments Med Refill Encounter Details Date Type Department Care Team ([facility] Contact Info) Description 04/25/2024 Refill [facility] [address] [place] [address] Madhuri Becker, PharmD [address] [place] [address] Type 2 diabetes mellitus with stage 4 chronic kidney disease, with long-term current use of insulin ([facility]) Social History Tobacco Use Types [...] Description 02/27/2025 9:30 AM EDT Medication Management [facility] [address] [place] [address] Madhuri Becker PharmD [address] [place] [address] 04/16/2025 9:15 AM EDT Office Visit [facility] [address] [place] [phone] Name, MD Royla [address] [place] [phone] documented as of this encounter Goals Goal [...] disease, with long-term current use of insulin ([facility]) documented in this encounter Additional Health Concerns Assessment Noted Time PHQ-9 Depression Total Score: 0 03/11/20 24 2:52 PM EDT documented as of this encounter Care Teams Toolroom Attendant Relationship Specialty Start Date End Date Name, MD Royal [address] [place] [address] PCP - General Family Medicine 06/16/19 Madhuri Becker PharmD [address] [place] [address] Pharmacist Internal Medicine 03/19/23 documented as of this encounter
--- OUTSIDE RECORDS SUMMARY | 2025-02-11 10:23 | XMS_ITS | Encounter Summary ---
Author Organization [employer] Address [address] [facility] 7t [place] [address] Care Team Providers Care Blue Print Control Clerk Name Role Phone Name, Royal BEATTY Primary Care Provider [phone] Madhuri Becker PharmD Unavailable [phone] Reason for Visit * Reason Comments Med Refill Encounter Details Date Type Department Care Team ([facility] Contact Info) Description 05/19/2024 Refill [facility] [address] [place] [address] Maryan Vasquez MD [address] [place] [address] Social History Tobacco Use Types Packs/Day Years [...] Description 02/27/2025 9:30 AM EDT Medication Management [facility] [address] [place] [address] Madhuri Becker PharmD [address] [place] [address] 04/16/2025 9:15 AM EDT Office Visit [facility] [address] [place] [address] Royal Pitt MD [address] [place] [address] documented as of this encounter Goals Goal [...] documented as of this encounter Care Teams Blue Print Control Clerk Relationship Specialty Start Date End Date NameRoyal MD [address] [place] [address] PCP - General Family Medicine 06/16/19 Madhuri Becker PharmD [address] [place] [address] Pharmacist Internal Medicine 03/19/23 documented as of this encounter
--- OUTSIDE RECORDS SUMMARY | 2025-02-11 10:23 | XMS_ITS | Encounter Summary ---
Author Organization [facility] [place] [facility], Address [address] [address] Phone Care Team Providers Care Municipal Court Judge Name Role Phone Name, Royal BEATTY Primary Care Provider [phone] Reason for Visit * Reason Comments Med Refill Encounter Details Date Type Department Care Team ([facility] Contact Info) Description 03/25/2024 Refill [facility] [address] [place] [phone] Abiel Gross MD [address] [place] [address] [place] [address] Social History Tobacco Use Types [...] Office Visit [facility], [address] [place] [address] Abiel Gross MD [address] [place] [address] [place] [address] documented as of this encounter Visit Diagnoses Not on filedocumented in this encounter Care Teams Municipal Court Judge Relationship Specialty Start Date End Date Name, MD Royal [address] [place] [address] PCP - General 09/23/19 documented as of this encounter
--- OUTSIDE RECORDS SUMMARY | 2025-02-11 10:23 | XMS_ITS | Encounter Summary ---
Author Organization [employer] Address [address] [facility] 7t [place] [address] Care Team Providers Care Special Procedures Nurse Name Role Phone Name, Royal BEATTY Primary Care Provider [phone] Madhuri Becker PharmD Unavailable [phone] Reason for Visit * Reason Comments Med Refill Encounter Details Date Type Department Care Team ([facility] Contact Info) Description 05/02/2024 Refill [facility] [address] [place] [address] Zechariah Bernabe MD [address] [place] [address] Social History Tobacco Use Types Packs/Day Years [...] 02/27/2025 9:30 AM EDT Medication Management [facility] [address] [place] [phone] Madhuri Becker PharmD [address] [place] [address] 04/16/2025 9:15 AM EDT Office Visit [facility] [address] [place] [address] Royal Pitt MD [address] [place] [phone] documented as of this encounter Goals Goal [...] documented as of this encounter Care Teams Special Procedures Nurse Relationship Specialty Start Date End Date NameRoyal MD [address] [place] [address] PCP - General Family Medicine 06/16/19 Madhuri Becker PharmD [address] [place] [address] Pharmacist Internal Medicine 03/19/23 documented as of this encounter
--- OUTSIDE RECORDS SUMMARY | 2025-02-11 10:23 | XMS_ITS | Encounter Summary ---
Author Organization [facility] Address [address] [address] Phone Care Team Providers Care Valance Cutter Name Role Phone Name, Royal BEATTY Primary Care Provider [phone] Reason for Visit * Reason Comments Med Refill Encounter Details Date Type Department Care Team ([facility] Contact Info) Description 03/24/2024 Refill [facility] [address] [place] [address] Abiel Gross MD [address] [place] [address] [place] [address] Social History Tobacco Use Types [...] Care Team ([facility] Contact Info) Description 02/20/2025 3:45 PM EDT Office Visit [facility] [address] [place] [address] Abiel Gross MD [address] [place] [address] [place] [address] documented as of this encounter Visit Diagnoses Not on filedocumented in this encounter Care Teams Valance Cutter Relationship Specialty Start Date End Date Name, MD Royal [address] [place] [address] PCP - General 09/23/19 documented as of this encounter
== END 2025-02-11 10:06 | disposition home or self-care (01) ==
LOC: HO.HWS 09:21
PROVIDERS: PCP Internal Medicine Geriatric Medicine; Visit Provider Obstetrics & Gynecology
DX: Z01.419 Encounter for gynecological examination (general) (routine) without abnormal findings (principal)
CPT/HCPCS: 99397; 99459

== ENCOUNTER → 2025-02-11 09:21 | Outpatient (BNVA) | payer OTHER, SELFPAY | PROVIDERS: PCP Internal Medicine Geriatric Medicine; Visit Provider Obstetrics & Gynecology | DX: Z01.419 Encounter for gynecological examination (general) (routine) without abnormal findings (principal) | CPT/HCPCS: 99397; 99459 ==

== ENCOUNTER 2025-02-23 15:16 | Outpatient (REF) | payer OTHER, SELFPAY ==
--- NOTE | ~2025-02-23 | US_ITS ---
EXAMINATION: US SOFT TISSUE NECK CLINICAL INFORMATION: Tender mass.. COMPARISON: None available. TECHNIQUE: Linear transducer marte-scale and color Doppler examination with attention to the right upper neck. FINDINGS: There is no questionable 1.7 cm well-defined ovoid shaped hypoechoic soft tissue lesion without flow on color Doppler interrogation or areas of calcification. US/US soft tiss head and/or neck IMPRESSION: 1.7 cm nonvascular soft tissue lesion. Electronically signed by: Taqueria Temple MD 02/24/2025 07:36 AM EDT
--- OUTSIDE RECORDS SUMMARY | 2025-02-23 18:04 | XMS_ITS | Encounter Summary ---
Author Organization [facility] [place], Address [address] [address] Phone Care Team Providers Care Hand Mold Maker Name Role Phone Name, Royal BEATTY Primary Care Provider Encounter Details Date Type Department Care Team (Late Contact Info) Description 12/19/2022 Documentation Only [facility] [address] [place] [address] Polina Sarmiento [address] [place] [phone] Social History Tobacco Use Types Packs/Day Years [...] Care Team ([facility] Contact Info) Description 02/24/2025 11:00 AM EDT Office Visit [facility] [address] [place] [address] 05/27/2025 2:30 PM EDT Office Visit [facility] [address] [place] [address] Abiel Gross MD [address] [place] [address] [place] [address] documented as of this encounter Visit Diagnoses Not on filedocumented in this encounter Care Teams Hand Mold Maker Relationship Specialty Start Date End Date Name, MD Royal [address] [place] [address] PCP - General 09/23/19 documented as of this encounter
--- OUTSIDE RECORDS SUMMARY | 2025-02-23 18:04 | XMS_ITS | Encounter Summary ---
Author Organization [employer] Address [address] [facility] 7t [place] [address] Care Team Providers Care Rn Lactation Name Role Phone Name, Royal BEATTY Primary Care Provider [phone] Madhuri Becker PharmD Unavailable [phone] Reason for Visit * Reason Comments Med Refill Encounter Details Date Type Department Care Team ([facility] Contact Info) Description 05/19/2024 Refill [facility] [address] [place] [address] Maryan Vasquez MD [address] [place] [address] Social History Tobacco Use Types Packs/Day Years [...] Care Team (Late st Contact Info) Description 03/19/2025 10:00 AM EDT Medication Management [facility] [address] [place] [address] Mahduri Becker PharmD [address] [place] [address] 04/16/2025 9:15 AM EDT Office Visit [facility] [address] [place] [address] Royal Pitt MD [address] [place] [address] documented as of this encounter Goals Goal [...] documented as of this encounter Care Teams Rn Lactation Relationship Specialty Start Date End Date NameRoyal MD [address] [place] [address] PCP - General Family Medicine 06/16/19 Madhuri Becker PharmD [address] [place] [address] Pharmacist Internal Medicine 03/19/23 documented as of this encounter
--- OUTSIDE RECORDS SUMMARY | 2025-02-23 18:04 | XMS_ITS | Encounter Summary ---
Author Organization [employer] Address [address] [facility] 7t [place] [address] Care Team Providers Care Harness And Bag Inspector Name Role Phone Name, Royal BEATTY Primary Care Provider [phone] Madhuri Becker PharmD Unavailable [phone] Reason for Visit * Reason Onset Date Comments Created In Error 07/30/2024 Encounter Details Date Type Department Care Team ([facility] [address] Contact Info) Description 07/30/2024 Telephone [facility] MEDICINE [address] [place] [phone] Name, MD Royal [address] [place] [address] Created In Error Social History Tobacco Use [...] Description 03/19/2025 10:00 AM EDT Medication Management [facility] [address] [place] [address] Madhuri Becker, PharmD [address] [place] [address] 04/16/2025 9:15 AM EDT Office Visit [address] [address] Name, MD Royal [address] [place] [address] documented as of this encounter Goals Goal [...] documented as of this encounter Care Teams Harness And Bag Inspector Relationship Specialty Start Date End Date Name, MD Royal [address] [place] [address] PCP - General Family Medicine 06/16/19 Madhuri Becker PharmD [address] [place] [address] Pharmacist Internal Medicine 03/19/23 documented as of this encounter
--- OUTSIDE RECORDS SUMMARY | 2025-02-23 18:04 | XMS_ITS | Encounter Summary ---
Author Organization [facility] [place], Address [address] [address] Phone Care Team Providers Care Department Of Mathematics Chair Name Role Phone Name, Royal BEATTY Primary Care Provider [phone] Reason for Visit * Reason Comments Med Refill Encounter Details Date Type Department Care Team ([facility] Contact Info) Description 11/06/2022 Refill [facility] [address] [place] [address] Abiel Gross MD [address] [place] [address] [place] [phone] Social History Tobacco Use Types Packs/Day Years [...] Upcoming Encounters Date Type Department Care Team ([facility] Contact Info) Description 02/24/2025 11:00 AM EDT Office Visit [facility] [address] [place] [place] [address] 05/27/2025 2:30 PM EDT Office Visit [facility] [address] [place] [phone] Abiel Gross MD [address] [facility] [place] [address] documented as of this encounter Visit Diagnoses Not on filedocumented in this encounter Care Teams Department Of Mathematics Chair Relationship Specialty Start Date End Date Name, MD Royal [address] [place] [address] PCP - General 09/23/19 documented as of this encounter
--- OUTSIDE RECORDS SUMMARY | 2025-02-23 18:04 | XMS_ITS | Encounter Summary ---
Author Organization [facility] Address [address] [address] Phone Care Team Providers Care Interventional Physiatrist Name Role Phone Name, Royal BEATTY Primary Care Provider [phone] Encounter Details Date Type Department Care Team (Late Contact Info) Description 05/15/2024 Documentation Only [facility] [address] [place] [address] Elidia Cruz [place] [address] [place] [phone] Social History Tobacco Use Types Packs/Day Years [...] Upcoming Encounters Date Type Department Care Team ([facility] Contact Info) Description 02/24/2025 11:00 AM EDT Office Visit [facility] [address] [facility] [place] [address] 05/27/2025 2:30 PM EDT Office Visit [facility] [address] [place] [address] Abiel Gross MD [address] [facility] [place] [address] documented as of this encounter Visit Diagnoses Not on filedocumented in this encounter Care Teams Interventional Physiatrist Relationship Specialty Start Date End Date Name, MD Royal [address] [place] [address] PCP - General 09/23/19 documented as of this encounter
--- OUTSIDE RECORDS SUMMARY | 2025-02-23 18:04 | XMS_ITS | Encounter Summary ---
Author Organization [facility] Address [address] [address] Phone Care Team Providers Care Accounts Receivable Collector Name Role Phone Name, Royal BEATTY Primary Care Provider [phone] Encounter Details Date Type Department Care Team (Late Contact Info) Description 04/09/2023 Documentation Only [facility] [address] [place] [address] [place] [address] [place] [phone] Social History Tobacco Use Types Packs/Day [...] Upcoming Encounters Date Type Department Care Team ([facility] Contact Info) Description 02/24/2025 11:00 AM EDT Office Visit [facility] [address] [facility] [place] [address] 05/27/2025 2:30 PM EDT Office Visit [facility] [address] [place] [address] Abiel Gross MD [address] [facility] [place] [address] documented as of this encounter Visit Diagnoses Not on filedocumented in this encounter Care Teams Accounts Receivable Collector Relationship Specialty Start Date End Date Name, MD Royal [address] [place] [address] PCP - General 09/23/19 documented as of this encounter
--- OUTSIDE RECORDS SUMMARY | 2025-02-23 18:04 | XMS_ITS | Encounter Summary ---
Author Organization [employer] Address [address] [facility] 7t [place] [address] Care Team Providers Care Unit Assistant Name Role Phone Name, Royal BEATTY Primary Care Provider [phone] Madhuri Becker PharmD Unavailable [phone] Reason for Visit * Reason Comments Med Refill Encounter Details Date Type Department Care Team ([facility] Contact Info) Description 05/02/2024 Refill [facility] [address] [place] [address] Zechariah Bernabe MD [address] [place] [address] Social History Tobacco Use Types Packs/Day Years [...] Description 03/19/2025 10:00 AM EDT Medication Management [facility] MEDICINE [address] [place] [address] Madhuri Becker PharmD [address] [place] [address] 04/16/2025 9:15 AM EDT Office Visit [facility] MED[facility]INE [address] [place] [address] Royal Pitt MD [address] [place] [address] documented as of this encounter Goals Goal [...] documented as of this encounter Care Teams Unit Assistant Relationship Specialty Start Date End Date NameRoyal MD [address] [place] [address] PCP - General Family Medicine 06/16/19 Madhuri Becker PharmD [address] [place] [address] Pharmacist Internal Medicine 03/19/23 documented as of this encounter
--- OUTSIDE RECORDS SUMMARY | 2025-02-23 18:04 | XMS_ITS | Encounter Summary ---
Author Organization [employer] Address [address] [facility] 7t [place] [address] Care Team Providers Care Core Sucker Name Role Phone Name, Royal BEATTY Primary Care Provider [phone] Madhuri Becker PharmD Unavailable Reason for Visit * Reason Onset Date Comments Appointment Request 01/01/2025 Encounter Details Date Type Department Care Team ([facility] Contact Info) Description 01/01/2025 Telephone [facility] MEDICINE [address] [place] [address] Name, MD Royal [address] [place] [address] Appointment Request Social History Tobacco Use Types [...] 01/01/2025 8:11 AM EST Tc from pt GAS MAKER requesting to r/s Pt apt for 01/01/25. Contact pt GAS MAKER at [phone] documented in this encounter Plan of Treatment Upcoming Encounters Date Type Department Care Team ([facility] st Contact Info) Description 03/19/2025 10:00 AM EDT Medication Management [facility] MEDICINE [address] [place] [address] Madhuri Becker, PharmD [address] [place] [address] 04/16/2025 9:15 AM EDT Office Visit [facility]INE [address] [place] [phone] Name, MD Royal [address] [place] [address] documented as of this encounter Goals Goal [...] documented as of this encounter Care Teams Core Sucker Relationship Specialty Start Date End Date Name, MD Royal [address] [place] [address] PCP - General Family Medicine 06/16/19 Madhuri Becker PharmD [address] [place] [address] Pharmacist Internal Medicine 03/19/23 documented as of this encounter
--- OUTSIDE RECORDS SUMMARY | 2025-02-23 18:04 | XMS_ITS | Clinical Summary ---
Author Organization [facility] [place], Address [address] [place] [address] [place] [address] Phone Care Team Providers Care White Sugar Boiler Name Role Phone Name, Royal BEATTY Primary Care Provider [phone] Allergies No known active allergies Medications acetaminophen (TYLENOL) 500 MG tablet Take 2 tablets by mouth 3 (three) times a day Active amLODIPine (NORVASC) 2.5 MG tablet Take 1 tablet by mouth 1 (one) time each day Active insulin glargine (LANTUS SOLOSTAR) 100 UNIT/ML injection Inject 50 Units under the skin at bed time Active levothyroxine (SYNTHROID, LEVOTHROID) 25 MCG tablet Take 1 tablet by mouth 1 (one) time each day Active losartan (COZAAR) 100 MG tablet Take 1 tablet by mouth 1 (one) time each day 03/12/20 18 Active raNITIdine (ZANTAC) 150 MG capsule Take 1 capsule by mouth at bed time Active rosuvastatin (CRESTOR) 10 MG tablet Take 1 tablet by mouth 1 (one) time each day Active aspirin 81 MG tablet Take 1 tablet by mouth 1 (one) time each day Active SM ASPIRIN ADULT LOW STRENGTH 81 MG EC tablet Take 81 mg by mouth at bed time 12/19/19 20 Active BANOPHEN 25 MG tablet Take 25 mg by mouth at night if needed 12/19/19 20 Active BYDUREON 2 MG pen-injector INJECT 0.65mL UNDER THE SKIN EVERY 7 DAYS IN THE ABDOMEN, THIGHS, OR OUTER AREA OF UPPER ARM ROTATING INJECTION SITES. 10/20/20 19 Active famotidine (PEPCID) 20 MG tablet Take 20 mg by mouth at bed time 10/22/20 19 Active gabapentin (NEURONTIN) 100 MG capsule Take 100 mg by mouth at bed time 12/19/19 20 Active FREESTYLE LITE test strip TEST BLOOD SUGAR EVERY DAY OR DIRECTED 12/19/19 20 Active HUMALOG KWIKPEN 100 UNIT/ML solution pen-injector INJECT 4 UNITS SUBCUTANEOUSLY ONLY BEFORE A LUNCH AND BEFORE SUPPER 10/21/20 Active PENTIPS 32G X 4 MM misc USE FOUR TIMES DAILY WITH humalog & lantus 12/19/19 Active TRUEPLUS LANCETS 33G misc TEST BLOOD SUGAR EVERY DAY OR DIRECTED 12/19/19 Active omeprazole (PriLOSEC) [address] capsule 05/13/20 21 Active NovoLOG FLEXPEN 100 UNIT/ML injection INJECT 10 UNITS SUBCUTANEOUSLY THREE TIMES DAILY BEFORE MEALS AND WITH SNACK 03/08/20 Active alendronate (FOSAMAX) 70 MG tablet take 1 tablet once a week with 6 to 8 oz of water 30 min before first food of day. do not lie down for 30 minutes 09/13/20 22 Active calcium carbonate 1500 (600 Ca) MG tablet TAKE 1 TABLET BY MOUTH TWICE DAILY IN THE MORNING AND IN THE EVENING WITH FOOD 11/09/20 22 Active TRUEplus Glucose On The Go 4 g chewable tablet CHEW 4 TABLETS NEEDED FOR low blood sugar (LESS THAN 70mg/dL) 11/09/20 22 Active Jardiance 10 MG tablet 03/09/20 23 Active fluconazole (DIFLUCAN) 150 MG tablet TAKE 1 TABLET BY MOUTH ONCE 03/02/20 23 Active calcitriol (Rocaltrol) 0.25 MCG capsule Take 1 capsule (0.25 mcg total) by mouth 1 (one) time each day 30 capsule 11 03/27/20 24 2024 Active furosemide (LASIX) 40 MG tablet Take 1 tablet (40 mg total) by mouth every morning and evening 180 tablet 3 03/27/20 24 Active cholecalcifer ol (VITAMIN D-3) 25 MCG (1000 UT) tablet TAKE 1 TABLET BY MOUTH EVERY MORNING 30 tablet 11 07/23/20 24 Active metoprolol tartrate 25 MG tablet TAKE 1 TABLET BY MOUTH TWICE DAILY IN THE MORNING AND IN THE EVENING 60 tablet 11 10/06/20 24 Active Dulaglutide (TRULICITY) 0.75 MG/0.5ML solution pen-injector Inject 0.5 mL under the skin 1 (one) time per week 10/08/20 19 2024 Discontinued Active Problems Problem Noted Date Diagnosed Date Secondary hyperparathyroidism 03/23/2023 Anemia in chronic kidney disease 03/23/2023 Chronic kidney disease, stage 4 (severe) 023 Chronic kidney disease stage 3 11/20/2019 Essential hypertension 11/20/2019 Hyperlipidemia 11/20/2019 Proteinuria 11/20/2019 Type 2 diabetes mellitus without complication Encounters Date Type Department Care Team Description 02/20/2025 3:45 PM EDT Office Visit [facility], [address] [place] [address] Abiel Gross MD Stage 3b chronic kidney disease (HCC) (Primary Dx); Persistent proteinuria; Secondary hyperparathyroidism (HCC); Anemia in chronic kidney disease; Type 2 diabetes mellitus with diabetic chronic kidney disease (HCC); Hypertension from Last 3 Months Immunizations Name Administration [...] Sign Reading Time Taken Comments Blood Pressure 110/60 02/20/2025 4:03 PM EDT Pulse - - Temperature - [...] Care Team (Late st Contact Info) Description 02/24/2025 11:00 AM EDT Office Visit [facility], [address] [place] [phone] 05/27/2025 2:30 PM EDT Office Visit [facility] [place], [address] [place] [address] Abiel Gross MD [address] [facility] [place] [phone] Health Maintenance Due Date Last Done Comments [...] PM EDT) Hemoglobin A1C 9.2(H) (4.0-5.6) % [facility] Comment: MONITORING: In known diabetic patients, hemoglobin A1c targets should be discussed with health care provider. DIAGNOSTIC USE: ??The [place] [employer] (ADA) and the World Health [...] Supplement 1 Testing performed or reported by [facility], a Service of [facility], [address] [place] [id number] Geetha Meléndez MD, Real Estate Developer Blood (Blood, Venous) 05/16/2021 4:21 PM EDT 05/16/2021 4:26 PM EDT Abiel Gross MD LAB BLOOD ORDERABLES Final Result [facility] from Last 3 Months or Most Recently Relevant to Health Maintenance Insurance [facility] CARE DUAL SNP ([id number]) [place] [id number] Care Teams White Sugar Boiler Relationship Specialty Start Date End Date Name, MD Royal [address] [place] [address] PCP - General 09/23/19
--- OUTSIDE RECORDS SUMMARY | 2025-02-23 18:04 | XMS_ITS | Clinical Summary ---
Author Organization [employer] Address [address] [facility] 7t [place] [address] Care Team Providers Care Child Life Therapist Name Role Phone Name, Royal BEATTY Primary Care Provider Madhuri Becker PharmD Unavailable [phone] Allergies No known active allergies Medications [...] use of insulin ([facility]) Use to test blood sugar three times [...] use of insulin ([facility]) USE UP TO THREE TIMES DAILY FOR INSULIN 100 each 5 09/11/20 24 Active calcium carbonate 1500 (600 Ca) MG tabletIndicatio ns:CKD stage 4 due to type 2 diabetes mellitus ([facility]) TAKE 1 TABLET BY MOUTH [...] use of insulin ([facility]) Chew 4 tablets (16 g) if needed for low blood sugar. (<70 mg/dL). Recheck BG after 15 minutes and repeat treatment as needed & as directed. 20 tablet 5 02/05/20 25 2025 Active insulin aspart (NovoLOG FLEXPEN) 100 UNIT/ML penIndications: Type 2 diabetes mellitus with stage 4 chronic kidney disease, with long-term current use of insulin ([facility]) Inject subQ with meals; 6 units with lunch & 6 units with dinner. 15 mL 2 02/05/20 25 Active insulin degludec (Tresiba FlexTouch) 100 UNIT/ML injectionIndica tions:Type 2 diabetes mellitus with stage 4 chronic kidney disease, with long-term current use of insulin ([facility]) Inject 24 units subQ once daily in the morning. 15 mL 2 02/05/20 25 Active Tirzepatide (Mounjaro) 10 MG/0.5ML solution auto-injectorIn dications:Type 2 diabetes mellitus with stage 4 chronic kidney disease, with long-term current use of insulin ([facility]) Inject 10 mg under the skin 1 (one) time per week. 2 mL 02/05/20 25 Active Continuous Glucose Imaging Specialist (FreeStyle Zoraida 3 [place]) device 1 each Once per day. Use as directed for CGM 1 each 02/05/20 25 Active Continuous Glucose Sensor (FreeStyle Zoraida 3 Plus Sensor) misc Apply 1 every 15 days as directed for CGM 2 each 02/05/20 25 Active glucose blood (FreeStyle Precision Balaji Test) test stripIndication s:Type 2 diabetes mellitus with stage 4 chronic kidney disease, with long-term current use of insulin ([facility]) Use to test blood sugar up to 3 times daily, as directed 100 each 02/05/20 25 Active rosuvastatin (Crestor) 10 MG tabletIndicatio ns:Essential hypertension TAKE 1 TABLET BY MOUTH EVERY MORNING 30 tablet 3 02/07/20 25 Active Continuous Blood Gluc Imaging Specialist (FreeStyle Zoraida 2 [place]) deviceIndicatio ns:Type 2 diabetes mellitus with stage 4 chronic kidney disease, with long-term current use of insulin ([facility]) Use as directed 1 each 03/02/20 23 2024 Discontinued glucose blood (FreeStyle Precision Balaji Test) test stripIndication s:Type 2 diabetes mellitus with stage 4 chronic kidney disease, with long-term current use of insulin ([facility]) Use to test blood sugar up to 3 times daily, as directed 100 each 11/30/19 24 2024 Discontinued glucose 4 g chewable tabletIndicatio ns:Type 2 diabetes mellitus with stage 4 chronic kidney disease, with long-term current use of insulin ([facility]) Chew 4 tablets (16 g) [...] use of insulin ([facility]) Inject 26 units subQ once daily in the morning. 15 mL 2 08/25/20 24 2024 Discontinued(R eorder (will not trigger notification to Pharmacy)) Continuous Glucose Sensor (SoloLearnyle Zoraida 2 Sensor) miscIndications :Type 2 diabetes mellitus with stage 4 chronic kidney disease, with long-term current use of insulin ([facility]) TEST BLOOD SUGAR DIRECTED. CHANGE EVERY 14 DAYS. 2 each 11 09/23/20 24 2024 Discontinued insulin aspart (NovoLOG FLEXPEN) 100 UNIT/ML penIndications: Type 2 diabetes mellitus with stage 4 chronic kidney disease, with long-term current use of insulin ([facility]) Inject subQ with meals; 8 units with lunch & 6 units with dinner. 11/06/20 24 2024 Discontinued(R eorder (will not trigger notification to Pharmacy)) Tirzepatide (Mounjaro) 7.5 MG/0.5ML solution auto-injectorIn dications:Type 2 diabetes mellitus with stage 4 chronic kidney disease, with long-term current use of insulin ([facility]) Inject 7.5 mg under the skin 1 [...] Type Department Care Team Description 02/05/2025 Refill [facility] [address] [place], [place] [phone] Yancy Soriano FNP Essential hypertension 02/04/2025 Travel 01/30/2025 10:40 AM EDT Office Visit [facility] [address] [place] [address] Alcon Sanchez MD Upper back pain on right side (Primary Dx); Neck mass 01/30/2025 Travel 01/25/2025 Refill [facility] [address] [facility] [place] [address] Name, MD Royal 01/09/2025 Telephone [facility] [address] [place] [address] Maikel Casiano MA february recalls 01/07/2025 Orders Only [facility] External Provider, [facility] 01/02/2025 Refill [facility] [address] [facility] [place] [place] [address] NameRoyal MD Essential hypertension 01/01/2025 Telephone [facility] [address] [place] [address] Name, MD Royal Appointment Request 12/30/2024 Telephone [facility] [address] [place] [address] Karon Esteban MA chartprep 12/30/2024 Refill [facility] [address] [place] [address] NameRoyal MD Essential hypertension 12/26/2024 Refill [facility] [address] [place] [address] Name, MD Royal Generalized pruritus 12/04/2024 Travel 11/29/2024 Refill [facility] [address] [place] [address] Name, MD Royal Essential hypertension from Last [...] Description 03/19/2025 10:00 AM EDT Medication Management [facility] [address] [place] [address] Madhuri Becker, PharmD [address] [place] [address] 04/16/2025 9:15 AM EDT Office Visit [facility] [address] [place] [address] Name, MD Royal [address] [place] [address] Health Maintenance Due Date Last Done Comments [...] EST Narrative 01/08/2025 12:18 PM EST ? [facility] ?[address] ?[place] [address] ? CT Scan Report ? Signed ? Patient: Luz Elena Montgomery ?MR#: [id number] ?? [id number] ? : 1945 ?Acct:[id number] ? Age/Sex: 79 / F ?ADM Date: 01/07/25 ? Loc: HO.CT ? Attending Dr: Bertha Williamson CLEANING SUPERVISOR ? Ordering Physician: Bertha Williamson NP ?? Date of Service: 01/07/25 ?? Procedure(s): CT chest wo IV con ?? Accession Number(s): [id number] ? cc: Royal Pitt MD; Stucenski,Bertha CLEANING SUPERVISOR ? Report Number: ?? [id number]: Total DLP = ??226.00 mGy-cm ? CLINICAL HISTORY: J94.8 - Other specified pleural conditions: Plural scarring ? CT chest without contrast ? Comparison: CT/REG/NC/SR - CT CHEST WO IV CON - [...] ? DD/ 16 ? TD/TT: 01/08/251216 ? Hand Box Coverer: ? Procedure Note Luiz Sherman - 01/08/[address] [address] [address] Scan Report Signed Patient: Luz Elena Montgomery AMR#: [id number] : 6Acct:[id number] Age/Sex: 79 / FADM Date: 01/07/25 Loc: HO.CT Attending Dr: Bertha Williamson CLEANING SUPERVISOR Ordering Physician: Bertha Williamson NP Date of Service: 01/07/25 Procedure(s): CT chest wo IV con Accession Number(s): [id number] cc: Name,Royal BEATTY; MillykurtBertha NP Report Number: [id number]: Total DLP = 226.00 mGy-cm CLINICAL HISTORY: J94.8 - Other specified pleural conditions: Pluralscarring CT chest without contrast Comparison: CT/REG/NC/SR - CT CHEST WO IV CON - [...] 01/08/25 1217 DD/ 1217 TD/TT: 01/08/25 1217 Hand Box Coverer: [facility] External Provider IMG CT PROCEDURES Final [...] EDT Narrative 09/09/2024 4:59 PM EDT ? [facility] ? [address] ?[place] [address] ? Mammography Report ? Signed ? Patient: Luz Elena Montgomery ?MR#: [id number] ?? [id number] ? : 1945 ?Acct:[id number] ? Age/Sex: 79 / F ?ADM Date: 08/29/24 ? Loc: HO.MAMMO ? Attending Dr: Royal Name MD ? Ordering Physician: Name,Royal MD ?Results: 1Negative ? Date of Service: 08/29/24 ?Follow Up: 1 Year From Orig ?? inal Mammogram ? Procedure(s): MM tomosynthesis screening LT ?? Accession Number(s): [id number] ? cc: Name,Royal ? EXAMINATION: ?? MM [...] DD/ 0945 ? TD/TT: 08/29/24 0955 ? Hand Box Coverer: ? Procedure Note Lane, Image - 09/09/2024 [facility] [address] [place] [address] [place] [address] Mammography Report Signed Patient: Luz Elena Montgomery AMR#: [id number] : 6Acct:[id number] Age/Sex: 79 / FADM Date: 08/29/24 Loc: AMRIT Attending Dr: Royal Pitt MD Ordering Physician: Royal Pittults: 1Negative Date of Service: 08/29/24Follow Up: 1 Year From Orig inal Mammogram Procedure(s): EDSON tomosynthesis screening Accession Number(s): [id number] cc: Royal Pitt MD EXAMINATION: MM SCREENING [...] in OV> 09/09/24 1657 DD/ TD/TT: 08/29/2455 Hand Box Coverer: Royal Pitt MD IM BI PROCEDURES Final Result * (ABNORMAL) Lipid Panel, Standard (05/15/2024 9:10 AM EDT) Triglycerides 170(H) <150 mg/dL [facility] Comment:Desirable Triglyceri de: less than 150 mg/dLBorderline High Triglyceride 150-199 mg/dLHigh Triglyceride: 200-499 mg/dLVery High Triglyceride: greater than or equal to 5OO mg/dL Cholesterol 122 <200 mg/dL [facility] Comment:Desirable Cholestero l: less than 200 mg/dLBorderline High Cholesterol: 200-239 mg/dLHigh Cholesterol: greater than 239 mg/dL LDL Cholesterol Calculated 48 <100 mg/dL [facility] Comment:Desirable LDL: less than 100 mg/dLNear Optimal/Above Optimal LDL: 110- 129 mg/dLBorderline High LDL: 130-159 mg/dLHigh LDL: 160-189 mg/dLVery High LDL: greater than or equal to 190 mg/dL HDL Cholesterol 40(L) >40 mg/dL [facility] Comment:Desirable HDL: great er than 40 mg/dL Note: This HDL assay may give artificially low results in patients with liver disease. Blood Venous blood specimen / Unknown 05/15/2024 9:10 AM EDT 05/15/2024 11:17 AM EDT us Royal Name LAB BLOOD ORDERABLES Final Resul t [facility] [address] [place] [phone] from Last 3 Months or Most Recently Relevant to Health Maintenance Insurance [facility] Care Teams Child Life Therapist Relationship Specialty Start Date End Date Name, MD Royal [address] [place] [address] PCP - General Family Medicine 06/16/19 Madhuri Becker PharmD [address] [place] [address] Pharmacist Internal Medicine 03/19/23
--- OUTSIDE RECORDS SUMMARY | 2025-02-23 18:04 | XMS_ITS | Encounter Summary ---
Author Organization [facility] Address [address] [address] Phone Care Team Providers Care Account Solutions Analyst Name Role Phone Name, Royal BEATTY Primary Care Provider [phone] Reason for Visit * Reason Comments Med Refill Encounter Details Date Type Department Care Team ([facility] Contact Info) Description 03/24/2024 Refill [facility] [address] [place] [phone] Abiel Gross MD [address] [place] [address] [place] [phone] Social History Tobacco Use Types Packs/Day Years [...] Upcoming Encounters Date Type Department Care Team ([facility] Contact Info) Description 02/24/2025 11:00 AM EDT Office Visit [facility] [address] [place] [phone] 05/27/2025 2:30 PM EDT Office Visit [facility] [address] [place] [phone] Abiel Gross MD [address] [place] [address] [place] [address] documented as of this encounter Visit Diagnoses Not on filedocumented in this encounter Care Teams Account Solutions Analyst Relationship Specialty Start Date End Date Name, MD Royal [address] [place] [address] PCP - General 09/23/19 documented as of this encounter
--- OUTSIDE RECORDS SUMMARY | 2025-02-23 18:04 | XMS_ITS | Encounter Summary ---
Author Organization [facility] Address [address] [address] Phone Care Team Providers Care It Audit Manager Name Role Phone Name, Royal BEATTY Primary Care Provider [phone] Encounter Details Date Type Department Care Team (Late st Contact Info) Description 01/18/2022 Documentation Only [facility] [address] [place] [address] Abiel Gross MD [address] [facility] [place] [address] Social History Tobacco Use Types [...] Department Care Team (Late Contact Info) Description 02/24/2025 11:00 AM EDT Office Visit [facility] [address] [facility] [phone] 05/27/2025 2:30 PM EDT Office Visit [facility] [address] [facility] [address] Abiel Gross MD [address] [facility] [place] [phone] documented as of this encounter Visit Diagnoses Not on filedocumented in this encounter Care Teams It Audit Manager Relationship Specialty Start Date End Date Name, MD Royal [address] [place] [address] PCP - General 09/23/19 documented as of this encounter
--- OUTSIDE RECORDS SUMMARY | 2025-02-23 18:04 | XMS_ITS | Encounter Summary ---
Author Organization [employer] [facility] Address [address] [place] [address] 7t [place] [address] Care Team Providers Care Contract Coordinator Name Role Phone Name, Royal BEATTY Primary Care Provider Madhuri Becker PharmD Unavailable Encounter Details Date Type Department Care Team (Late st Contact Info) Description 11/02/2022 Orders Only [facility] [address] [place] [address] Nory Brown LPN Social History Tobacco Use [...] Description 03/19/2025 10:00 AM EDT Medication Management [facility] [address] [place] [address] Madhuri Becker, PharmD [address] [place] [address] 04/16/2025 9:15 AM EDT Office Visit [facility] [address] [place] [address] Name, MD Royal [address] [place] [address] documented as of this encounter Visit Diagnoses Not on filedocumented in this encounter Care Teams Contract Coordinator Relationship Specialty Start Date End Date Name, MD Royal [address] [place] [address] PCP - General Family Medicine 06/16/19 Madhuri Becker PharmD [address] [place] [address] Pharmacist Internal Medicine 03/19/23 documented as of this encounter
--- OUTSIDE RECORDS SUMMARY | 2025-02-23 18:04 | XMS_ITS | Encounter Summary ---
Author Organization [facility] Address [address] [place] [address] 7t [place] [address] Care Team Providers Care Coating Inspector Name Role Phone Name, Royal BEATTY Primary Care Provider [phone] Madhuri Becker PharmD Unavailable Reason for Visit * Reason Onset Date Comments New Script 03/16/2023 Encounter Details Date Type Department Care Team ([facility] Contact Info) Description 03/16/2023 Telephone [facility] [address] [place] [address] Name, MD Royal [address] [place] [address] New Script Social History Tobacco Use Types [...] signature * Telephone Encounter - Sam Dicksonrafaela Mcknight - 03/16/2023 10:55 AM EDT Tc tarik Figueroa with [facility] requesting a script for Six Mastectomy Bras . Please Fax over script at [phone] If any question please contact [place] at [phone] documented in this encounter Plan of Treatment Upcoming Encounters Date Type Department Care Team (Late st Contact Info) Description 03/19/2025 10:00 AM EDT Medication Management [address] [address] Madhuri Becker, PharmD [address] [place] [address] 04/16/2025 9:15 AM EDT Office Visit [facility] [address] [place] [address] Name, MD Royal [address] [place] [address] [phone] documented as of this encounter Goals Goal [...] documented as of this encounter Care Teams Coating Inspector Relationship Specialty Start Date End Date NameRoyal MD [address] [place] [address] [phone] PCP - General Family Medicine 06/16/19 Madhuri Becker, AlissonD [address] [place] [address] Pharmacist Internal Medicine 03/19/23 documented as of this encounter
--- OUTSIDE RECORDS SUMMARY | 2025-02-23 18:04 | XMS_ITS | Encounter Summary ---
Author Organization [employer] Address [address] [facility] 7t [place] [address] Care Team Providers Care Manager Retail Sales Name Role Phone Name, Royal BEATTY Primary Care Provider [phone] Madhuri Becker PharmD Unavailable [phone] Reason for Visit * Reason Onset Date Comments Appointment Request 11/03/2024 Encounter Details Date Type Department Care Team ([facility] Contact Info) Description 11/03/2024 Telephone [facility] [address] [place] [address] Name, MD Royal [address] [place] [address] Appointment Request Social History Tobacco Use Types [...] 11/03/2024 9:22 AM EST Tc from [facility] ([facility]) requesting to reschedule today's CDTM visit. Please contact [facility] at [phone]. (Indonesian Speaker) documented in this encounter Plan of Treatment Upcoming Encounters Date Type Department Care Team (Late st Contact Info) Description 03/19/2025 10:00 AM EDT Medication Management [facility] [address] [place] [address] Madhuri Becker, PharmD [address] [place] [address] 04/16/2025 9:15 AM EDT Office Visit [facility] [address] [place] [address] Name, MD Royal [address] [place] [address] documented as of this encounter Goals Goal Patient Goal Type Associated Problems Recent Progress Patient-Stated? Author Hemoglobin A1c < 8 Result Component 9.5( 5 10:08 AM EST) No Madhuri Becker, [...] documented as of this encounter Care Teams Manager Retail Sales Relationship Specialty Start Date End Date Name, MD Royal [address] [place] [address] PCP - General Family Medicine 06/16/19 Madhuri Becker PharmD [address] [place] [address] Pharmacist Internal Medicine 03/19/23 documented as of this encounter
--- OUTSIDE RECORDS SUMMARY | 2025-02-23 18:04 | XMS_ITS | Encounter Summary ---
Author Organization [facility] Address [address] [address] Phone Care Team Providers Care Tube Depatcher Name Role Phone Name, Royal BEATTY Primary Care Provider [phone] Encounter Details Date Type Department Care Team (Late Contact Info) Description 05/30/2023 Documentation Only [facility] [address] [place] [address] Abiel Gross MD [address] [facility] [place] [address] Social History Tobacco Use Types [...] Visit [facility] [address] [facility] [place] [phone] 05/27/2025 2:30 PM EDT Office Visit [facility] [address] [facility] [place] [address] Abiel Gross MD [address] [facility] [place] [phone] documented as of this encounter Visit Diagnoses Not on filedocumented in this encounter Care Teams Tube Depatcher Relationship Specialty Start Date End Date Name, MD Royal [address] [place] [address] PCP - General 09/23/19 documented as of this encounter
--- OUTSIDE RECORDS SUMMARY | 2025-02-23 18:04 | XMS_ITS | Encounter Summary ---
Author Organization [facility] Address [address] [address] Phone Care Team Providers Care Webbing Tacker Name Role Phone Name, Royal BEATTY Primary Care Provider [phone] Reason for Visit * Reason Comments Med Refill Encounter Details Date Type Department Care Team ([facility] Contact Info) Description 03/25/2024 Refill [facility] [address] [place] [address] Abiel Gross MD [address] [place] [address] [place] [phone] Social History Tobacco Use Types Packs/Day Years [...] Upcoming Encounters Date Type Department Care Team ([facility] Contact Info) Description 02/24/2025 11:00 AM EDT Office Visit [facility] [address] [facility] [place] [address] 05/27/2025 2:30 PM EDT Office Visit [facility] [address] [place] [phone] Abiel Gross MD [address] [facility] [place] [address] documented as of this encounter Visit Diagnoses Not on filedocumented in this encounter Care Teams Webbing Tacker Relationship Specialty Start Date End Date Name, MD Royal [address] [place] [address] PCP - General 09/23/19 documented as of this encounter
--- OUTSIDE RECORDS SUMMARY | 2025-02-23 18:04 | XMS_ITS | Encounter Summary ---
Author Organization [facility] Address [address] [place] [address] 7t [place] [address] Care Team Providers Care Senior Administrative Support Name Role Phone Name, Royal BEATTY Primary Care Provider [phone] Madhuri Becker PharmD Unavailable [phone] Reason for Visit * Reason Comments Med Refill Encounter Details Date Type Department Care Team ([facility] Contact Info) Description 05/31/2023 Refill [facility] [address] [place] [address] Name, MD Royal [address] [place] [address] Social History Tobacco Use Types Packs/Day Years [...] Upcoming Encounters Date Type Department Care Team ([facility] Contact Info) Description 03/19/2025 10:00 AM EDT Medication Management [facility] [address] [place] [address] [place] [address] 04/16/2025 9:15 AM EDT Office Visit [facility] [address] [place] [address] Name, [place] [address] documented as of this encounter Goals Goal [...] documented as of this encounter Care Teams Senior Administrative Support Relationship Specialty Start Date End Date Name, MD Royal [address] [place] [address] PCP - General Family Medicine 06/16/19 Madhuri Becker PharmD [address] [place] [address] [phone] Pharmacist Internal Medicine 03/19/23 documented as of this encounter
--- OUTSIDE RECORDS SUMMARY | 2025-02-23 18:04 | XMS_ITS | Encounter Summary ---
Author Organization [employer] [facility] Address [address] [place] [address] 7t [place] [address] Care Team Providers Care Hospital Chaplain Name Role Phone Name, Royal BEATTY Primary Care Provider [phone] Madhuri Becker PharmD Unavailable [phone] Encounter Details Date Type Department Care Team ([facility] Contact Info) Description 01/29/2023 Orders Only [facility] [address] [place], [place] [phone] Remedios Rider LPN Social History Tobacco Use [...] Description 03/19/2025 10:00 AM EDT Medication Management [facility] [address] [place] [address] Madhuri Becker, PharmD [address] [place] [address] 04/16/2025 9:15 AM EDT Office Visit [facility] [address] [place] [address] Name, MD Royal [address] [place] [address] documented as of this encounter Visit Diagnoses Not on filedocumented in this encounter Additional Health Concerns Assessment Noted Time PHQ-9 Depression Total Score: 0 11/09/20 22 11:52 AM EST documented as of this encounter Care Teams Hospital Chaplain Relationship Specialty Start Date End Date Name, MD Royal [address] [place] [address] PCP - General Family Medicine 06/16/19 Madhuri Becker PharmD [address] [place] [address] Pharmacist Internal Medicine 03/19/23 documented as of this encounter
--- OUTSIDE RECORDS SUMMARY | 2025-02-23 18:04 | XMS_ITS | Encounter Summary ---
Author Organization [employer] Address [address] [facility] 7t [place] [address] Care Team Providers Care Wrapper Opener Name Role Phone Name, Royal BEATTY Primary Care Provider [phone] Madhuri Becker PharmD Unavailable Reason for Visit * Reason Comments Med Refill Encounter Details Date Type Department Care Team ([facility] Contact Info) Description 04/25/2024 Refill [facility] [address] [place] [address] Madhuri Becker, PharmD [address] [place] [address] Type 2 diabetes mellitus with stage 4 chronic kidney disease, with long-term current use of insulin ([facility]) Social History Tobacco Use Types Packs/Day Years [...] Description 03/19/2025 10:00 AM EDT Medication Management [facility] [address] [place] [phone] Madhuri Becker PharmD [address] [place] [address] 04/16/2025 9:15 AM EDT Office Visit [facility] [address] [place] [phone] Name, MD Royal [address] [place] [phone] documented as of this encounter Goals Goal [...] disease, with long-term current use of insulin ([facility]) documented in this encounter Additional Health Concerns Assessment Noted Time PHQ-9 Depression Total Score: 0 03/11/20 24 2:52 PM EDT documented as of this encounter Care Teams Wrapper Opener Relationship Specialty Start Date End Date Name, MD Royal [address] [place] [address] PCP - General Family Medicine 06/16/19 Madhuri Becker PharmD [address] [place] [address] Pharmacist Internal Medicine 03/19/23 documented as of this encounter
--- OUTSIDE RECORDS SUMMARY | 2025-02-23 18:04 | XMS_ITS | Encounter Summary ---
Author Organization [facility] Address [address] [address] Phone Care Team Providers Care Senior Writer Name Role Phone Name, Royal BEATTY Primary Care Provider [phone] Encounter Details Date Type Department Care Team (Latest Contact Info) Description 02/20/2025 3:45 PM EDT Office Visit [facility] [place], [address] [place] [phone] Abiel Gross MD [address] [place] [address] [place] [phone] Stage 3b chronic kidney disease (HCC) (Primary Dx); Persistent proteinuria; Secondary hyperparathyroidism (HCC); Anemia in chronic kidney disease; Type 2 diabetes mellitus with diabetic chronic kidney disease (HCC); Hypertension Social History Tobacco Use Types Packs/Day Years [...] on file documented as of this encounter Last Filed Vital Signs Vital Sign Reading Time Taken Comments Blood Pressure 110/60 02/20/2025 4:03 PM EDT Pulse - - Temperature - - Respiratory Rate - - Oxygen Saturation - - Inhaled Oxygen Concentration - - Weight - - Height - - Body Mass Index - - documented in this encounter H&P Notes * Abiel Gross MD - 02/20/2025 3:45 PM EDT Images from the original note were not included. PATIENT: Luz Elena Church : 1945 ENCOUNTER: 02/20/2025 PCP: Yoandy, MD Royal Luz Elena Church is a 79 y.o. year old patient who I have followed for a history of: Chronic kidney disease stage IV in the setting of uncontrolled diabetes and underlying hypertension. In the interval since our last visit I have had the opportunity to review the following when available: -laboratory data, imaging studies, and cardiovascular data -current med list from the patient, the patient's pharmacy, [facility], and Care Everywhere During this visit I had the opportunity for a full review of systems and limited physical exam as outlined below, with the pertinent findings noted and others found to be negative or noncontributory to the current assessment of this patient. HPI: Luz Elena has progressive renal failure in the setting of poorly controlled diabetes and hypertension. She previously had an increase in her creatinine up to 3.1 in April 2023. I saw her back in August 2023 at which time her creatinine was down to 2.6. Prior to that her creatinine had been running in the 2.2 to 2.5 mg/dL range. The last labs I have available to me are from April 2024 at which time her creatinine was 3.0. She had an albumin creatinine ratio 362 at that time. She now presents for follow-up. Her blood pressure is excellent. She did not bring her medication list with her. She tells methat she had labs done last month but I do not have the results. She has had some cough. She deniesurinary symptoms. She has mild lower extremity edema. She is now on Mounjaro instead of Trulicity. PAST MEDICAL HISTORY: Patient Active Problem List Diagnosis Date Noted ??? Secondary hyperparathyroidism (HCC) 03/23/2023 ??? Anemia in chronic kidney disease 03/23/2023 ??? Chronic kidney disease, stage 4 (severe) (HCC) 03/23/2023 ??? Chronic kidney disease stage 3 (HCC) 11/20/2019 ??? Essential hypertension 11/20/2019 ??? Hyperlipidemia 11/20/2019 ??? Proteinuria 11/20/2019 ??? Type 2 diabetes mellitus without complication (HCC) 11/20/2019 ROS: Constitutional: No fever. Respiratory: No shortness of breath. She has a cough. Cardiovascular: No chest pain. Gastrointestinal: No abdominal pain, nausea or vomiting, diarrhea, loss of appetite. Genitourinary: No hematuria, pain, or difficulty voiding. MEDICATIONS: Outpatient Encounter Medications as of 02/20/2025 Medication Sig Dispense Refill ??? acetaminophen (TYLENOL) 500 MG tablet Take 2 tablets by mouth 3 (three) times a day ??? alendronate (FOSAMAX) 70 MG tablet take 1 tablet once a week with 6 to 8 oz of water 30 min before first food of day. do not lie down for 30 minutes ??? amLODIPine (NORVASC) 2.5 MG tablet Take 1 tablet by mouth 1 (one) time each day ??? aspirin 81 MG tablet Take 1 tablet by mouth 1 (one) time each day ??? BANOPHEN 25 MG tablet Take 25 mg by mouth at night if needed ??? BYDUREON 2 MG pen-injector INJECT 0.65mL UNDER THE SKIN EVERY 7 DAYS IN THE ABDOMEN, THIGHS, OROUTER AREA OF UPPER ARM ROTATING INJECTION SITES. ??? calcitriol (Rocaltrol) 0.25 MCG capsule Take 1 capsule (0.25 mcg total) by mouth 1 (one) time each day 30 capsule 11 ??? calcium carbonate 1500 (600 Ca) MG tablet TAKE 1 TABLET BY MOUTH TWICE DAILY IN THE MORNING ANDIN THE EVENING WITH FOOD ??? cholecalciferol (VITAMIN D-3) 25 MCG (1000 UT) tablet TAKE 1 TABLET BY MOUTH EVERY MORNING 30 tablet 11 ??? famotidine (PEPCID) 20 MG tablet Take 20 mg by mouth at bed time ??? fluconazole (DIFLUCAN) 150 MG tablet TAKE 1 TABLET BY MOUTH ONCE ??? FREESTYLE LITE test strip TEST BLOOD SUGAR EVERY DAY OR DIRECTED ??? furosemide (LASIX) 40 MG tablet Take 1 tablet (40 mg total) by mouth every morning and evening 180 tablet 3 ??? gabapentin (NEURONTIN) 100 MG capsule Take 100 mg by mouth at bed time ??? HUMALOG KWIKPEN 100 UNIT/ML solution pen-injector INJECT 4 UNITS SUBCUTANEOUSLY ONLY BEFORE A LUNCH AND BEFORE SUPPER ??? insulin glargine (LANTUS SOLOSTAR) 100 UNIT/ML injection Inject 50 Units under the skin at bed time ??? Jardiance 10 MG tablet ??? levothyroxine (SYNTHROID, LEVOTHROID) 25 MCG tablet Take 1 tablet by mouth 1 (one) time each day ??? losartan (COZAAR) 100 MG tablet Take 1 tablet by mouth 1 (one) time each day ??? metoprolol tartrate 25 MG tablet TAKE 1 TABLET BY MOUTH TWICE DAILY IN THE MORNING AND IN THE EVENING 60 tablet 11 ??? NovoLOG FLEXPEN 100 UNIT/ML injection INJECT 10 UNITS SUBCUTANEOUSLY THREE TIMES DAILY BEFORE MEALS AND WITH SNACK ??? omeprazole (PriLOSEC) [address] capsule ? ? PENTIPS 32G X 4 MM misc USE FOUR TIMES DAILY WITH humalog & lantus ??? raNITIdine (ZANTAC) 150 MG capsule Take 1 capsule by mouth at bed time ??? rosuvastatin (CRESTOR) 10 MG tablet Take 1 tablet by mouth 1 (one) time each day ??? SM ASPIRIN ADULT LOW STRENGTH 81 MG EC tablet Take 81 mg by mouth at bed time ??? TRUEplus Glucose On The Go 4 g chewable tablet CHEW 4 TABLETS NEEDED FOR low blood sugar (LESS THAN 70mg/dL) ??? TRUEPLUS LANCETS 33G misc TEST BLOOD SUGAR EVERY DAY OR DIRECTED ??? [DISCONTINUED] Dulaglutide (TRULICITY) 0.75 MG/0.5ML solution pen-injector Inject 0.5 mL under the skin 1 (one) time per week No facility-administered encounter medications on file as of 02/20/2025. PHYSICAL EXAM: BP 110/60 Constitutional: No apparent distress Cardiovascular: No JVD elevation; no rub; regular Pulmonary/Chest: No rales; end expiratory wheeze Abdominal: Soft and non-tender. Extremities: Edema Trace LABS: Chemistry Lab Units 05/15/24 0910 09/11/23 1135 04/27/23 0833 CREATININE mg/dL 3.07* 2.6* 3.15* BUN mg/dL 61* 57* 46* POTASSIUM mmol/L 4.5 4.2 4.3 SODIUM mmol/L 140 138 140 CO2 mmol/L 29 26 28 CHLORIDE mmol/L 103 99 102 ALBUMIN g/dL 4.1 4.4 -- EGFRNAFR ML/MIN/1.73 M2 -- 19 -- WBC AUTO K/MM3 -- 7.4 -- HEMATOCRIT % -- 32.1* -- HEMOGLOBIN GM/DL -- 10.2* -- PLATELETS AUTO K/MM3 -- 200 -- Bone Mineral Lab Units 05/15/24 0910 09/11/23 1135 04/27/23 0833 CALCIUM mg/dL 10.5* 9.6 8.8 PHOSPHORUS MG/DL -- 3.3 -- ALK PHOS U/L 73 -- -- PTH PG/ML -- 215* -- VITAMIN D NG/ML -- 42.0 -- SUMMARY: Based on the above findings, my interpretation of the available data, and my best efforts to reconcile the active medications, the following problems/diagnoses with recommendations for any further testing, treatment options, and follow-up are provided for your review: Chronic and Active Issues: 1. Stage 3b chronic kidney disease (HCC) 2. Persistent proteinuria 3. Secondary hyperparathyroidism (HCC) 4. Anemia in chronic kidney disease 5. Type 2 diabetes mellitus with diabetic chronic kidney disease (HCC) 6. Hypertension Luz Elena has advanced chronic kidney disease likely primarily on the basis of uncontrolled diabetes over the years. She does have a history of anemia of chronic disease and secondary hyperparathyroidismas well. She is on a GLP-1 agonist, SGLT2 inhibitor, and angiotensin receptor jay. We will continue discussions with regard to her relatively advanced chronic kidney disease, risk for progression, and options with regard to renal replacement therapy should she progress. She is meeting one of our educators next week. I have asked her family member to bring in her medication list and most recent labs. We may need to get a full set of labs to include her parathyroid function and iron studies as well. Overall, she is at high risk for progression given her poorly controlled diabetes and obesity. We should be able to calculate her kidney failure risk based on urine albumin and creatinine studies. I will review her labs and have a better idea of this. If all goes well I plan on seeing her back in 3 months. Orders Placed This Encounter ??? Renal function panel ??? PTH, intact ??? Phosphorus ??? Uric acid ??? Urinalysis with microscopic ??? Urine Albumin / Creatinine Ratio ??? CBC ??? Ferritin ??? Iron Panel (Fe, TIBC, TSAT) documented in this encounter Plan of Treatment Upcoming Encounters Date Type Department Care Team (Late st Contact Info) Description 02/24/2025 11:00 AM EDT [facility] [address] [place] [address] 05/27/2025 2:30 PM EDT Office Visit [facility] [address] [place] [address] Abiel Gross MD [address] [place] [address] [place] [address] Scheduled Orders Name Type Priority Associated Diagnoses Orde r Schedule Renal function panel Lab Routine Stage 3b chronic kidney disease (HCC) Persistent proteinuria Secondary hyperparathyroidism (HCC) Anemia in chronic kidney disease Type 2 diabetes mellitus with diabetic chronic kidney disease (HCC) Hypertension Expected: 02/20/2025, Expires: 03/22/2026 PTH, intact Lab Routine Stage 3b chronic kidney disease (HCC) Persistent proteinuria Secondary hyperparathyroidism (HCC) Anemia in chronic kidney disease Type 2 diabetes mellitus with diabetic chronic kidney disease (HCC) Hypertension Expected: 02/20/2025, Expires: 03/22/2026 Phosphorus Lab Routine Stage 3b chronic kidney disease (HCC) Persistent proteinuria Secondary hyperparathyroidism (HCC) Anemia in chronic kidney disease Type 2 diabetes mellitus with diabetic chronic kidney disease (HCC) Hypertension Expected: 02/20/2025, Expires: 03/22/2026 Uric acid Lab Routine Stage 3b chronic kidney disease (HCC) Persistent proteinuria Secondary hyperparathyroidism (HCC) Anemia in chronic kidney disease Type 2 diabetes mellitus with diabetic chronic kidney disease (HCC) Hypertension Expected: 02/20/2025, Expires: 03/22/2026 Urinalysis with microscopic Lab Routine Stage 3b chronic kidney disease (HCC) Persistent proteinuria Secondary hyperparathyroidism (HCC) Anemia in chronic kidney disease Type 2 diabetes mellitus with diabetic chronic kidney disease (HCC) Hypertension Expected: 02/20/2025, Expires: 03/22/2026 Urine Albumin / Creatinine Ratio Lab Routine Stage 3b chronic kidney disease (HCC) Persistent proteinuria Secondary hyperparathyroidism (HCC) Anemia in chronic kidney disease Type 2 diabetes mellitus with diabetic chronic kidney disease (HCC) Hypertension Expected: 02/20/2025, Expires: 03/22/2026 CBC Lab Routine Stage 3b chronic kidney disease (HCC) Persistent proteinuria Secondary hyperparathyroidism (HCC) Anemia in chronic kidney disease Type 2 diabetes mellitus with diabetic chronic kidney disease (HCC) Hypertension Expected: 02/20/2025, Expires: 03/22/2026 Ferritin Lab Routine Stage 3b chronic kidney disease (HCC) Persistent proteinuria Secondary hyperparathyroidism (HCC) Anemia in chronic kidney disease Type 2 diabetes mellitus with diabetic chronic kidney disease (HCC) Hypertension Expected: 02/20/2025, Expires: 03/22/2026 Iron Panel (Fe, TIBC, TSAT) Lab Routine Stage 3b chronic kidney disease (HCC) Persistent proteinuria Secondary hyperparathyroidism (HCC) Anemia in chronic kidney disease Type 2 diabetes mellitus with diabetic chronic kidney disease (HCC) Hypertension Expected: 02/20/2025, Expires: 03/22/2026 documented as of this encounter Visit Diagnoses Diagnosis Stage 3b chronic kidney disease (HCC)- Primary Persistent proteinuria Secondary hyperparathyroidism (HCC) Anemia in chronic kidney disease Type 2 diabetes mellitus with diabetic chronic kidney disease (HCC) Hypertension documented in this encounter Care Teams Senior Writer Relationship Specialty Start Date End Date Name, MD Royal [address] [place] [phone] PCP - General 09/23/19 documented as of this encounter
--- OUTSIDE RECORDS SUMMARY | 2025-02-23 18:04 | XMS_ITS | Encounter Summary ---
Author Organization [facility] Address [address] [address] Phone Care Team Providers Care Lining Scrubber Name Role Phone Name, Royal BEATTY Primary Care Provider [phone] Encounter Details Date Type Department Care Team (Late Contact Info) Description 05/30/2024 Documentation Only [facility] [address] [place] [address] Elidia Cruz [place] [address] [place] [address] Social History Tobacco Use Types Packs/Day [...] Upcoming Encounters Date Type Department Care Team ([facility] Contact Info) Description 02/24/2025 11:00 AM EDT Office Visit [facility] [address] [place] [address] 05/27/2025 2:30 PM EDT Office Visit [facility] [address] [place] [address] Abiel Gross MD [address] [address] [place] [address] documented as of this encounter Visit Diagnoses Not on filedocumented in this encounter Care Teams Lining Scrubber Relationship Specialty Start Date End Date Name, MD Royal [address] [place] [address] PCP - General 09/23/19 documented as of this encounter
== END 2025-02-23 15:17 | disposition home or self-care (01) ==
LOC: HO.US 15:16
PROVIDERS: PCP Internal Medicine Geriatric Medicine; Visit Provider Family Medicine
DX: R22.1 Localized swelling, mass and lump, neck (principal)
CPT/HCPCS: 76536

== ENCOUNTER → 2025-02-23 15:19 | Outpatient (BNV) | payer OTHER, SELFPAY | PROVIDERS: PCP Internal Medicine Geriatric Medicine; Visit Provider Radiology Diagnostic Radiology | DX: D21.9 Benign neoplasm of connective and other soft tissue, unspecified (principal) | CPT/HCPCS: 76536 ==

== ENCOUNTER 2025-03-12 09:03 | Outpatient (REF) | payer OTHER, SELFPAY ==
--- NOTE | ~2025-03-12 | MM_ITS ---
EXAMINATION: DXA BONE DENSITY AXIAL HISTORY: Z78.0 - Asymptomatic menopausal state TECHNIQUE: [employer] Dual energy absorptiometry (DEXA) of the lumbar spine, total left hip, and femoral neck was performed. COMPARISON: Comparison is made with the prior examination dated 08/15/2022. FINDINGS: The bone mineral density of the lumbar spine is 1.282 with a T-score of 0.8, and a Z-score of 1.5. This is indicative of normal bone mineral density. This represents a BMD change of 3.6% compared to the prior exam. This is statistically significant. The bone mineral density of the left total hip is 0.972 with a T-score of -0.3, and a Z-score of 0.8. This is indicative of normal bone mineral density. This represents a BMD change of 29.9% compared to the prior exam. This is not statistically significant. The bone mineral density of the left femoral neck is 0.768 with a T-score of -1.9, and a Z-score of -0.6. This is indicative of osteopenia. This represents a BMD change of 18.5% compared to the prior exam. FRACTURE RISK: The FRAX index suggests a ten year probability of major osteoporotic fracture of 8.0%, and of hip fracture 2.1%. MM/XR DEXA axial skeleton IMPRESSION: Based on bone mineral density, and according to World Health Organization (WHO) criteria, the diagnosis is consistent with osteopenia. All bone density values are in grams per centimeter squared (g/cm2). Statistically, 68% of repeat scans fall within 1 SD (+/- 0.010 g/cm2 for AP spine L1-L4) and 1 SD (+/- 0.012 g/cm2 for femur total) FRAX is a trademark of the [employer]'s [employer] Metabolic Bone Disease, a World Health Organization (WHO) Collaborating Center. Electronically signed by: Nitish Coronado MD 03/13/2025 07:47 AM EDT
--- OUTSIDE RECORDS SUMMARY | 2025-03-12 09:47 | XMS_ITS | Encounter Summary ---
Author Organization [facility] Address [address] [facility] 7t [place] [address] Care Team Providers Care Geology Technician Name Role Phone Name, Royal BEATTY Primary Care Provider [phone] Madhuri Becker PharmD Unavailable [phone] Reason for Visit * Reason Onset Date Comments Created In Error 07/30/2024 Encounter Details Date Type Department Care Team ([facility] Contact Info) Description 07/30/2024 Telephone [facility] [address] [place] [phone] Name, MD Royal [address] [place] [address] Created In Error Social History Tobacco Use [...] Description 03/19/2025 10:00 AM EDT Medication Management [facility] [address] [place] [phone] Madhuri Becker, PharmD [address] [place] [phone] 04/16/2025 9:15 AM EDT Office Visit [address] [address] Name, MD Royal [address] [place] [address] documented as of this encounter Goals Goal [...] documented as of this encounter Care Teams Geology Technician Relationship Specialty Start Date End Date Name, MD Royal [address] [place] [address] PCP - General Family Medicine 06/16/19 Madhuri Becker PharmD [address] [place] [address] Pharmacist Internal Medicine 03/19/23 documented as of this encounter
--- OUTSIDE RECORDS SUMMARY | 2025-03-12 09:47 | XMS_ITS | Clinical Summary ---
Author Organization [facility], Address [address] [place] [address] [place] [address] Phone Care Team Providers Care Returned Telephone Equipment Appraiser Name Role Phone Name, Royal BEATTY Primary Care Provider [phone] Allergies No known active allergies Medications acetaminophen [...] BEFORE A LUNCH AND BEFORE SUPPER 10/21/20 19 Active PENTIPS 32G X 4 MM misc USE FOUR TIMES DAILY WITH humalog & lantus 12/19/19 20 Active TRUEPLUS LANCETS 33G misc TEST BLOOD SUGAR EVERY DAY OR DIRECTED 12/19/19 20 Active omeprazole (PriLOSEC) [address] capsule 05/13/20 21 Active NovoLOG FLEXPEN 100 UNIT/ML injection INJECT 10 UNITS SUBCUTANEOUSLY THREE TIMES DAILY BEFORE MEALS AND WITH SNACK 03/08/20 21 Active alendronate (FOSAMAX) 70 MG tablet take [...] TABLET BY MOUTH ONCE 03/02/20 23 Active furosemide (LASIX) 40 MG tablet Take [...] EVENING 60 tablet 11 10/06/20 24 Active calcitriol (ROCALTROL) 0.25 MCG capsule TAKE 1 CAPSULE BY MOUTH EVERY MORNING 30 capsule 11 03/02/20 25 Active Dulaglutide (TRULICITY) 0.75 MG/0.5ML solution pen-injector Inject 0.5 mL under the skin 1 (one) time per week 10/08/20 19 2024 Discontinued calcitriol (Rocaltrol) 0.25 MCG capsule Take 1 capsule (0.25 mcg total) by mouth 1 (one) time each day 30 capsule 11 03/27/20 24 2024 Discontinued Active Problems Problem Noted Date Diagnosed Date Secondary hyperparathyroidism 03/23/2023 Anemia in chronic kidney disease 03/23/2023 Chronic kidney disease, stage 4 (severe) 023 Chronic kidney disease stage 3 11/20/2019 Essential hypertension 11/20/2019 Hyperlipidemia 11/20/2019 Proteinuria 11/20/2019 Type 2 diabetes mellitus without complication Encounters Date Type Department Care Team Description 03/03/2025 Documentation Only [facility] [address] [place] [address] Elidia Cruz MA 02/28/2025 Refill [facility] [address] [place] [address] Abiel Gross MD 02/24/2025 Documentation Only [facility] [address] [place] [address] Giovanna Sheldon Patient Education; wr; venipuncture charge 02/20/2025 3:45 PM EDT Office Visit [facility] [address] [place] [address] Abiel Gross MD Stage 3b chronic kidney disease (HCC) (Primary Dx); Persistent proteinuria; Secondary hyperparathyroidism (HCC); Anemia in chronic kidney disease; Type 2 diabetes mellitus with diabetic chronic kidney disease (HCC); Hypertension from Last 3 Months Immunizations Immunization Administration Dates Next Due Influenza, Unspecified 11/01/2018 [...] Care Team (Late st Contact Info) Description 05/27/2025 2:30 PM EDT Office Visit [facility] [place], [address] [facility] [place] [address] Abiel Gross MD [address] [facility] [place] [address] Health Maintenance Due Date Last Done Comments Diabetes: Ophthalmology Exam 11/20/2019 Diabetes: Pedal Pulse Checked 11/20/2019 Diabetes: Sensory Foot Exam 11/20/2019 Diabetes: Visual Foot Exam 11/20/2019 Diabetes: Hemoglobin A1C 03/04/2025 025, 08/25/2024, 03/11/2024, Additional history exists Pneumococcal Vaccine: 50+ Years Completed 06/27/2023, 09/17/2019, 08/01/2018, Additional history exists Pneumococcal Vaccine: Peds (0 to 5 Years) and At-Risk Patients (6 to 49 Years) Discontinued 06/27/2023, 09/17/2019, 08/01/2018, Additional history exists Hepatitis B Vaccine Aged Out 10/01/2023, 04/27/2023, 03/30/2023 No longer eligible based on patient's age to complete this topic Influenza Vaccine Completed 07/28/2024, , 09/17/2019, Additional history exists Procedures Procedure Name Priority Date/Time Associated Diagnosis Comments IRON PANEL (FE, TIBC, TSAT) Routine 02/24/2025 8:39 AM EDT Stage 3b chronic kidney disease (HCC) Persistent proteinuria Secondary hyperparathyroidism (HCC) Anemia in chronic kidney disease Type 2 diabetes mellitus with diabetic chronic kidney disease (HCC) Hypertension FERRITIN Routine 02/24/2025 8:39 AM EDT Stage 3b chronic kidney disease (HCC) Persistent proteinuria Secondary hyperparathyroidism (HCC) Anemia in chronic kidney disease Type 2 diabetes mellitus with diabetic chronic kidney disease (HCC) Hypertension CBC Routine 02/24/2025 8:39 AM EDT Stage 3b chronic kidney disease (HCC) Persistent proteinuria Secondary hyperparathyroidism (HCC) Anemia in chronic kidney disease Type 2 diabetes mellitus with diabetic chronic kidney disease (HCC) Hypertension URINE ALBUMIN / CREATININE RATIO Routine 02/24/2025 8:39 AM EDT Stage 3b chronic kidney disease (HCC) Persistent proteinuria Secondary hyperparathyroidism (HCC) Anemia in chronic kidney disease Type 2 diabetes mellitus with diabetic chronic kidney disease (HCC) Hypertension URINALYSIS WITH MICROSCOPIC Routine 02/24/2025 8:39 AM EDT Stage 3b chronic kidney disease (HCC) Persistent proteinuria Secondary hyperparathyroidism (HCC) Anemia in chronic kidney disease Type 2 diabetes mellitus with diabetic chronic kidney disease (HCC) Hypertension URIC ACID Routine 02/24/2025 8:39 AM EDT Stage 3b chronic kidney disease (HCC) Persistent proteinuria Secondary hyperparathyroidism (HCC) Anemia in chronic kidney disease Type 2 diabetes mellitus with diabetic chronic kidney disease (HCC) Hypertension PTH, INTACT Routine 02/24/2025 8:39 AM EDT Stage 3b chronic kidney disease (HCC) Persistent proteinuria Secondary hyperparathyroidism (HCC) Anemia in chronic kidney disease Type 2 diabetes mellitus with diabetic chronic kidney disease (HCC) Hypertension RENAL FUNCTION PANEL Routine 02/24/2025 8:39 AM EDT Stage 3b chronic kidney disease (HCC) Persistent proteinuria Secondary hyperparathyroidism (HCC) Anemia in chronic kidney disease Type 2 diabetes mellitus with diabetic chronic kidney disease (HCC) Hypertension MICROSCOPIC EXAMINATION - DO NOT USE Routine 02/24/2025 8:39 AM EDT HEMOGLOBIN A1C Routine 05/16/2021 4:21 PM EDT Other proteinuria Chronic kidney disease, stage 4 (severe) (HCC) Type 2 diabetes mellitus without complication (HCC) from Last 3 Months or Most Recently Relevant to Health Maintenance Results * (ABNORMAL) Microscopic Examination (02/24/2025 8:39 AM EDT) WBC, Urine 11-30(A) 0 - 5 /hpf [facility] RBC, Urine None seen 0 - 2 /hpf [facility] Squamous Epithelial, Urine >10(A) 0 - 10 /hpf [facility] Casts None seen None seen /lpf [facility] Bacteria, Urine Few None seen/Few [facility] 02/24/2025 8:39 AM EDT 02/24/2025 Comment:Blood, Venou Microsc o Abiel Gross MD LAB MICROBIOLOGY - GENERAL ORDERABLES Final Result [facility] [address] [place] [address] * Iron Panel (Fe, TIBC, TSAT) (02/24/2025 8:39 AM EDT) Iron 88 27 - 139 ug/dL [facility] TIBC 256 250 - 450 ug/dL [facility] UIBC 168 118 - 369 ug/dL [facility] Iron Saturation (TSat) 34 15 - 55 % [facility] Blood (Blood, Venous) 02/24/2025 8:39 AM EDT 02/24/2025 Comment:Blood, Venou Microsc o Abiel Gross MD LAB BLOOD ORDERABLES Final Result Performing Organization Address [facility] Co de Phone Number [facility] [address] [place] [address] * (ABNORMAL) Urine Albumin / Creatinine Ratio (02/24/2025 8:39 AM EDT) Pathologist [facility] Creatinine, Ur 123.9 Not Estab. mg/dL [facility] Albumin, Urine 113.8 Not Estab. ug/mL [facility] Albumin/Creatin ine Ratio 92(H) 0 - 29 mg/g creat [facility] Comment: ? Normal: ?0 - ??29 ? Moderately increased: 30 - 300 ? Severely increased: ? >300 Urine (Urine, Clean Catch) 02/24/2025 8:39 AM EDT 02/24/2025 Comment:Blood, Venou Microsc o Abiel Gross MD LAB URINE ORDERABLES Final Result Performing Organization Address [facility] Co de Phone Number [facility] [address] [place] [address] * (ABNORMAL) Urinalysis with microscopic (02/24/2025 8:39 AM EDT) Pathologist [facility] Specific [place], Urine 1.015 1.005 - 1.030 [facility] [phone] pH Urine 5.5 5.0 - 7.5 [facility] [phone] Color, Urine Yellow Yellow [facility] Appearance Urine Clear Clear [facility] [phone] WBC Esterase Urine Trace(A) Negative [facility] [phone] Protein, Ur 1+(A) Negative/Tra ce [facility] [phone] Glucose, Ur Negative Negative [facility] Ketones, Urine Negative Negative [facility] Blood Urine Negative Negative [facility] [phone] Bilirubin Urine Negative Negative [facility] Urobilinogen Urine 0.2 0.2 - 1.0 mg/dL [facility] Nitrite, Urine Negative Negative [facility] Microscopic Examination See below: [facility] Comment:Microscopic was ami cated and was performed. Urine (Urine, Clean Catch) 02/24/2025 8:39 AM EDT 02/24/2025 Comment:Blood, Venou Microsc o us Abiel Gross MD LAB URINE ORDERABLES Final Result [facility] [address] [place] [address] * (ABNORMAL) CBC (02/24/2025 8:39 AM EDT) WBC 7.8 3.4 - 10.8 x10E3/uL [facility] RBC 3.21(L) 3.77 - 5.28 x10E6/uL [facility] Hemoglobin 10.4(L) 11.1 - 15.9 g/dL [facility] Hematocrit 31.2(L) 34.0 - 46.6 % [facility] MCV 97 79 - 97 fL [facility] MCH 32.4 26.6 - 33.0 pg [facility] MCHC 33.3 31.5 - 35.7 g/dL [facility] RDW 12.4 11.7 - 15.4 % [facility] Platelets 193 150 - 450 x10E3/uL [facility] Blood (Blood, Venous) 02/24/2025 8:39 AM EDT 02/24/2025 Comment:Blood, Venou Microsc o Abiel Gross MD LAB BLOOD ORDERABLES Final Result [facility] [address] [place] [address] * Uric acid (02/24/2025 8:39 AM EDT) Uric Acid 7.6 3.1 - 7.9 mg/dL [facility] Comment:Therapeutic target f or gout patients: <6.0 Blood (Blood, Venous) 02/24/2025 8:39 AM EDT 02/24/2025 Comment:Blood, Venou Microsc o Abiel Gross MD LAB BLOOD ORDERABLES Final Result [facility] [address] [place] [address] * (ABNORMAL) PTH, intact (02/24/2025 8:39 AM EDT) PTH 115(H) 15 - 65 pg/mL [facility] Blood (Blood, Venous) 02/24/2025 8:39 AM EDT 02/24/2025 Comment:Blood, Venou Microsc o Abiel Gross MD LAB BLOOD ORDERABLES Final Result [facility] [address] [place] [address] * (ABNORMAL) Ferritin (02/24/2025 8:39 AM EDT) Ferritin 223(H) 15 - 150 ng/mL [facility] Blood (Blood, Venous) 02/24/2025 8:39 AM EDT 02/24/2025 Comment:Blood, Venou Microsc o Abiel Gross MD LAB BLOOD ORDERABLES Final Result Performing Organization Address City/[facility]/ZIP Co de Phone Number [facility] [address] [place] [address] * (ABNORMAL) Renal function panel (02/24/2025 8:39 AM EDT) Glucose 212(H) 70 - 99 mg/dL [facility] BUN 65(H) 8 - 27 mg/dL [facility] Creatinine 3.46(H) 0.57 - 1.00 mg/dL [facility] eGFR CKD-EPI CR 2020 13(L) >59 mL/min/1.7 3 [facility] BUN/Creatinine Ratio 19 12 - 28 [facility] Sodium 142 134 - 144 mmol/L [facility] Potassium 4.8 3.5 - 5.2 mmol/L [facility] Chloride 99 96 - 106 mmol/L [facility] Bicarbonate (CO2) 23 20 - 29 mmol/L [facility] Calcium 10.7(H) 8.7 - 10.3 mg/dL [facility] Albumin 4.3 3.8 - 4.8 g/dL [facility] Phosphorus 4.3 3.0 - 4.3 mg/dL [facility] Blood (Blood, Venous) 02/24/2025 8:39 AM EDT 02/24/2025 Comment:Blood, Venou Microsc o Abiel Gross MD LAB BLOOD ORDERABLES Final Result Performing Organization Address [facility] Co de Phone Number [facility] [address] [place] [address] * (ABNORMAL) Hemoglobin A1c (05/16/2021 4:21 PM EDT) Hemoglobin A1C 9.2(H) (4.0-5.6) % [facility] Comment: MONITORING: In known diabetic patients, hemoglobin A1c targets should be discussed with health care provider. DIAGNOSTIC USE: ??The [place] Diabetes Association (ADA) and the World Health [...] Supplement 1 Testing performed or reported by [facility], a Service of [facility], [address] [place] [address] Geetha Meléndez MD, Gauge Maker Blood (Blood, Venous) 05/16/2021 4:21 PM EDT 05/16/2021 4:26 PM EDT Abiel Gross MD LAB BLOOD ORDERABLES Final Result [facility] from Last 3 Months or Most Recently Relevant to Health Maintenance Insurance [employer] Dual SNP ([id number]) [place] [id number] Care Teams Returned Telephone Equipment Appraiser Relationship Specialty Start Date End Date Name, MD Royal [address] [place] [phone] PCP - General 09/23/19
--- OUTSIDE RECORDS SUMMARY | 2025-03-12 09:47 | XMS_ITS | Encounter Summary ---
Author Organization [facility], Address [address] [address] Phone Care Team Providers Care Kettle Tender Name Role Phone Name, Roayl BEATTY Primary Care Provider [phone] Encounter Details Date Type Department Care Team ([facility] Contact Info) Description 05/30/2024 Documentation Only [facility] [address] [place] [address] Elidia Cruz [place] [address] [place] [phone] Social History Tobacco Use Types Packs/Day Years [...] Upcoming Encounters Date Type Department Care Team ([facility] Contact Info) Description 05/27/2025 2:30 PM EDT Office Visit [facility] [address] [place] [address] Abiel Gross MD [address] [facility] [address] [place] [phone] documented as of this encounter Visit Diagnoses Not on filedocumented in this encounter Care Teams Kettle Tender Relationship Specialty Start Date End Date Name, MD Royal [address] [place] [address] PCP - General 09/23/19 documented as of this encounter
--- OUTSIDE RECORDS SUMMARY | 2025-03-12 09:47 | XMS_ITS | Encounter Summary ---
Author Organization [facility] [place], Address [address] [address] Phone Care Team Providers Care Infantry Assaultman Name Role Phone Name, Royal BEATTY Primary Care Provider [phone] Reason for Visit * Reason Comments Med Refill Encounter Details Date Type Department Care Team ([facility] Contact Info) Description 11/06/2022 Refill [facility] [address] [place] [phone] Abiel Gross MD [address] [place] [address] [place] [address] Social History Tobacco Use Types [...] [facility] Contact Info) Description 05/27/2025 2:30 PM EDT Office Visit [facility], [address] [place] [address] Abiel Gross MD [address] [place] [address] [place] [address] documented as of this encounter Visit Diagnoses Not on filedocumented in this encounter Care Teams Infantry Assaultman Relationship Specialty Start Date End Date Name, MD Royal [address] [place] [phone] PCP - General 09/23/19 documented as of this encounter
--- OUTSIDE RECORDS SUMMARY | 2025-03-12 09:47 | XMS_ITS | Encounter Summary ---
Author Organization [facility] Address [address] [place] [address] 7t [place] [address] Care Team Providers Care Gate Keeper Name Role Phone Name, Royal BEATTY Primary Care Provider [phone] Madhuri Becker PharmD Unavailable Reason for Visit * Reason Onset Date Comments New Script 03/16/2023 Encounter Details Date Type Department Care Team ([facility] Contact Info) Description 03/16/2023 Telephone [facility] [address] [place] [phone] Name, MD Royal [address] [place] [address] New Script Social History Tobacco Use Types [...] for signature * Telephone Encounter - Sam iDcksonrafaela Mcknight - 03/16/2023 10:55 AM EDT Tc tarik Figueroa with [facility] requesting a script for Six Mastectomy Bras . Please Fax over script at [phone] If any question please contact [place] at [phone] documented in this encounter Plan of Treatment Upcoming Encounters Date Type Department Care Team (Late st Contact Info) Description 03/19/2025 10:00 AM EDT Medication Management [address] [address] Madhuri Becker, PharmD [address] [place] [address] 04/16/2025 9:15 AM EDT Office Visit [facility] [address] [place] [address] Name, MD Royal [address] [place] [address] [phone] documented as of this encounter Goals Goal [...] documented as of this encounter Care Teams Gate Keeper Relationship Specialty Start Date End Date NameRoyal MD [address] [place] [address] [phone] PCP - General Family Medicine 06/16/19 Madhuri Becker, AlissonD [address] [place] [phone] Pharmacist Internal Medicine 03/19/23 documented as of this encounter
--- OUTSIDE RECORDS SUMMARY | 2025-03-12 09:47 | XMS_ITS | Encounter Summary ---
Author Organization [employer] Address [address] [facility] 7t [place] [address] Care Team Providers Care Loop Cutter Name Role Phone Name, Royal BEATTY Primary Care Provider [phone] Madhuri Becker PharmD Unavailable [phone] Reason for Visit * Reason Onset Date Comments Appointment Request 11/03/2024 Encounter Details Date Type Department Care Team ([facility] Contact Info) Description 11/03/2024 Telephone [facility] [address] [place] [phone] Name, MD Royal [address] [place] [address] Appointment Request Social History Tobacco Use Types [...] 11/03/2024 9:22 AM EST Tc from [facility] ([facility]) requesting to reschedule today's CDTM visit. Please contact [facility] at [phone]. (Macedonian Speaker) documented in this encounter Plan of Treatment Upcoming Encounters Date Type Department Care Team (Late st Contact Info) Description 03/19/2025 10:00 AM EDT Medication Management [facility] [address] [place] [phone] Madhuri Becker, PharmD [address] [place] [address] 04/16/2025 9:15 AM EDT Office Visit [facility] [address] [place] [phone] Name, MD Royal [address] [place] [address] documented as of this encounter Goals Goal [...] documented as of this encounter Care Teams Loop Cutter Relationship Specialty Start Date End Date Name, MD Royal [address] [place] [address] PCP - General Family Medicine 06/16/19 Madhuri Becker PharmD [address] [place] [address] Pharmacist Internal Medicine 03/19/23 documented as of this encounter
--- OUTSIDE RECORDS SUMMARY | 2025-03-12 09:47 | XMS_ITS | Encounter Summary ---
Author Organization [employer] Address [address] [facility] 7t [place] [address] Care Team Providers Care Spanisher Name Role Phone Name, Royal BEATTY Primary Care Provider [phone] Madhuri Becker PharmD Unavailable [phone] Reason for Visit * Reason Comments Med Refill Encounter Details Date Type Department Care Team ([facility] Contact Info) Description 02/28/2025 Refill [facility] [address] [place] [address] Name, MD Royal [address] [place] [address] Social History Tobacco Use Types Packs/Day Years [...] Description 03/19/2025 10:00 AM EDT Medication Management [facility] [address] [place] [phone] Madhuri Becker, PharmD [address] [place] [address] 04/16/2025 9:15 AM EDT Office Visit [facility] [address] [place] [address] [phone] Name, MD Royal [address] [place] [address] documented as of this encounter Goals Goal Patient Goal Type Associated Problems Recent Progress Patient-Stated? Author Hemoglobin A1c < 8 Result Component 9.5( 10:08 AM EST) No Madhuri Becker, PharmD Record your blood sugar as directed Result Component No PuHumberto lorayssa, PharmD Note: Use CGM, as instructed, ensuring sensor is scanned at least Q8hr. Check BG via fingerstick as needed & as directed. documented as of this encounter Visit Diagnoses Not on filedocumented in this encounter Additional Health Concerns Assessment Noted Time PHQ-9 Depression Total Score: 0 03/11/20 24 2:52 PM EDT documented as of this encounter Care Teams Spanisher Relationship Specialty Start Date End Date Name, MD Royal [address] [place] [address] PCP - General Family Medicine 06/16/19 Madhuri Becker, Jazzmine [address] [place] [address] Pharmacist Internal Medicine 03/19/23 documented as of this encounter
--- OUTSIDE RECORDS SUMMARY | 2025-03-12 09:47 | XMS_ITS | Encounter Summary ---
Author Organization [facility] [place], Address [address] [address] Phone Care Team Providers Care Forest Firefighter Name Role Phone Name, Royal BEATTY Primary Care Provider [phone] Reason for Visit * Reason Comments Med Refill Encounter Details Date Type Department Care Team ([facility] Contact Info) Description 03/25/2024 Refill [facility] [address] [place] [phone] Abiel Gross MD [address] [place] [address] [place] [address] Social History Tobacco Use Types [...] Upcoming Encounters Date Type Department Care Team ([facility] Contact Info) Description 05/27/2025 2:30 PM EDT Office Visit [facility], [address] [place] [address] Abiel Gross MD [address] [place] [address] [place] [address] documented as of this encounter Visit Diagnoses Not on filedocumented in this encounter Care Teams Forest Firefighter Relationship Specialty Start Date End Date Name, MD Royal [address] [place] [phone] PCP - General 09/23/19 documented as of this encounter
--- OUTSIDE RECORDS SUMMARY | 2025-03-12 09:47 | XMS_ITS | Encounter Summary ---
Author Organization [employer] Address [address] [facility] 7t [place] [address] Care Team Providers Care Evaluator Transfer Students Name Role Phone Name, Royal BEATTY Primary Care Provider [phone] Madhuri Becker PharmD Unavailable [phone] Reason for Visit * Reason Comments Med Refill Encounter Details Date Type Department Care Team ([facility] Contact Info) Description 04/25/2024 Refill [facility] [address] [place] [address] Madhuri Becker, PharmD [address] [place] [address] Type 2 diabetes mellitus with stage 4 chronic kidney disease, with long-term current use of insulin ([facility]) Social History Tobacco Use Types [...] Description 03/19/2025 10:00 AM EDT Medication Management [facility] [address] [place] [address] Madhuri Becker PharmD [address] [place] [address] 04/16/2025 9:15 AM EDT Office Visit [facility] [address] [place] [address] [phone] Name, MD Royal [address] [place] [address] documented as of this encounter Goals Goal [...] disease, with long-term current use of insulin ([facility]) documented in this encounter Additional Health Concerns Assessment Noted Time PHQ-9 Depression Total Score: 0 03/11/20 24 2:52 PM EDT documented as of this encounter Care Teams Evaluator Transfer Students Relationship Specialty Start Date End Date Name, MD Royal [address] [place] [address] PCP - General Family Medicine 06/16/19 Madhuri Becker PharmD [address] [place] [address] Pharmacist Internal Medicine 03/19/23 documented as of this encounter
--- OUTSIDE RECORDS SUMMARY | 2025-03-12 09:47 | XMS_ITS | Encounter Summary ---
Author Organization [facility] Address [address] [place] [address] 7t [place] [address] Care Team Providers Care Certified Nuclear Medicine Technologist Name Role Phone Name, Royal BEATTY Primary Care Provider [phone] Madhuri Becker PharmD Unavailable [phone] Reason for Visit * Reason Comments Med Refill Encounter Details Date Type Department Care Team ([facility] Contact Info) Description 05/31/2023 Refill [facility] [address] [place] [address] Name, MD Royal [address] [place] [address] Social History Tobacco Use Types Packs/Day Years [...] Encounters Date Type Department Care Team ([facility] Contact Info) Description 03/19/2025 10:00 AM EDT Medication Management [facility] [address] [place] [address] [place] [address] 04/16/2025 9:15 AM EDT Office Visit [facility] [address] [place] [address] Name, [place] [address] documented as of this encounter Goals Goal [...] documented as of this encounter Care Teams Certified Nuclear Medicine Technologist Relationship Specialty Start Date End Date Name, MD Royal [address] [place] [address] PCP - General Family Medicine 06/16/19 Madhuri Becker PharmD [address] [place] [address] [phone] Pharmacist Internal Medicine 03/19/23 documented as of this encounter
--- OUTSIDE RECORDS SUMMARY | 2025-03-12 09:47 | XMS_ITS | Clinical Summary ---
Author Organization [employer] Address [address] [facility] 7t [place] [address] Care Team Providers Care Induction Machine Setter Name Role Phone Name, Royal BEATTY Primary Care Provider [phone] Madhuri Becker PharmD Unavailable [phone] Allergies No known active allergies Medications [...] disease, with long-term current use of insulin ([facility]) Use to test blood sugar three [...] BEDTIME 30 capsule 5 09/08/20 24 Active calcium carbonate 1500 (600 Ca) MG tabletIndication s:CKD stage 4 due to type 2 diabetes mellitus ([facility]) TAKE 1 TABLET BY MOUTH TWICE DAILY IN THE MORNING AND IN THE EVENING WITH FOOD 180 tablet 3 10/07/20 24 Active omeprazole (PriLOSEC) [address] capsule TAKE 1 CAPSULE BY MOUTH EVERY MORNING 30-60 MINUTES BEFORE A MEAL 90 capsule 1 10/09/20 24 Active amLODIPine (Norvasc) 2.5 MG tabletIndication s:Essential hypertension TAKE 1 TABLET BY MOUTH EVERY MORNING 90 tablet 1 12/01/19 25 Active diphenhydrAMINE (Pauline-Dryl) 25 MG tabletIndication [...] 01/27/20 25 Active glucose 4 g chewable tabletIndication s:Type 2 diabetes mellitus with stage 4 chronic kidney disease, with long-term current use of insulin ([facility]) Chew 4 tablets (16 g) if needed for low blood sugar. (<70 mg/dL). Recheck BG after 15 minutes and repeat treatment as needed & as directed. 20 tablet 5 02/05/20 25 026 Active insulin aspart (NovoLOG FLEXPEN) 100 UNIT/ML penIndications:T ype 2 diabetes mellitus with stage 4 chronic kidney disease, with long-term current use of insulin ([facility]) Inject subQ with meals; 6 units with lunch & 6 units with dinner. 15 mL 2 02/05/20 25 Active insulin degludec (Tresiba FlexTouch) 100 UNIT/ML injectionIndicat ions:Type 2 diabetes mellitus with stage 4 chronic kidney disease, with long-term current use of insulin ([facility]) Inject 24 units subQ once daily in the morning. 15 mL 2 02/05/20 25 Active Tirzepatide (Mounjaro) 10 MG/0.5ML solution auto-injectorInd ications:Type 2 diabetes mellitus with stage 4 chronic kidney disease, with long-term current use of insulin (CMS/HCC) Inject 10 mg under the skin 1 (one) time per week. 2 mL 02/05/20 25 Active Continuous Glucose Cook Morning (FreeStyle Zoraida 3 [place]) device 1 each Once per day. Use [...] 02/05/20 25 Active rosuvastatin (Crestor) 10 MG tabletIndication s:Essential hypertension TAKE 1 TABLET BY MOUTH EVERY MORNING 30 tablet 3 02/07/20 25 Active BD Pen Needle Rachele U/F 32G X 4 MM miscIndications: Type 2 diabetes mellitus with stage 4 chronic kidney disease, with long-term current use of insulin (CMS/HCC) USE UP TO THREE TIMES DAILY FOR INSULIN 100 each 5 03/04/20 25 Active insulin pen needle (BD Pen Needle Rachele U/F) 32G x 4 mm miscIndications: Type 2 diabetes mellitus with stage 4 chronic kidney disease, with long-term current use of insulin (CMS/HCC) USE UP TO THREE TIMES DAILY FOR INSULIN 100 each 5 09/11/20 24 025 Discontinued Active Problems Problem Noted [...] Encounters Date Type Department Care Team Description 03/04/2025 Refill [facility] [address] [place] [address] NameRoyal MD Type 2 diabetes mellitus with stage 4 chronic kidney disease, with long-term current use of insulin ([facility]) 02/28/2025 Refill [facility] [address] [place] [address] Royal Pitt MD 02/24/2025 Telephone [facility] [address] [place] [address] Loren Archer, FRANKIE 02/05/2025 Refill [facility] [address] [place] [address] CoamoYancy, BOTTLING LINE OPERATOR Essential hypertension 02/04/2025 Travel 01/30/2025 10:40 AM EDT Office Visit [facility] [address] [place] [address] Alcon Sanchez MD Upper back pain on right side (Primary Dx); Neck mass 01/30/2025 Travel 01/25/2025 Refill [facility] [address] [place] [address] NameRoyal MD 01/09/2025 Telephone [facility] [address] [place] [address] Maikel Casiano MA february recalls 01/07/2025 Orders Only [facility] External Provider, [facility] 01/02/2025 Refill [facility] [address] [place] [address] Name, MD Royal Essential hypertension 01/01/2025 Telephone [facility] [address] [place] [address] NameRoyal MD Appointment Request 12/30/2024 Telephone [facility] [address] [place] [address] Karon Esteban MA chartprep 12/30/2024 Refill [facility] [address] [place] [address] Royal Pitt MD Essential hypertension 12/26/2024 Refill [facility] [address] [place] [address] Name, MD Royal Generalized pruritus from Last 3 Months Immunizations Name Administration [...] Description 03/19/2025 10:00 AM EDT Medication Management [facility] [address] [place] [address] Madhuri Becker, PharmD [address] [place] [address] 04/16/2025 9:15 AM EDT Office Visit [facility] [address] [place] [address] Name, MD Royal [address] [place], [place] [phone] Health Maintenance Due Date Last Done Comments [...] Procedure Name Priority Date/Time Associated Diagnosis Comments US HEAD NECK SOFT TISSUE Routine 02/23/2025 3:34 PM EDT Neck mass CT CHEST WO CONTRAST Routine 01/08/2025 12:17 [...] Recently Relevant to Health Maintenance Results * US Head Neck Soft Tissue (02/23/2025 3:34 PM EDT) Anatomical Region Laterality Modality Head, Neck Ultrasound 02/23/2025 3:34 PM EDT Narrative 02/24/2025 7:38 AM EDT ? [facility] ?[address] ?[place] [address] ? Ultrasound Report ? Signed ? Patient: Luz Elena Montgomery ?MR#: MM ?? [id number] ? : 1945 ?Acct:[id number] ? Age/Sex: 79 / F ?ADM Date: 02/23/25 ? Loc: HO.US ? Attending Dr: Alcon Sanchez MD ? Ordering Physician: Alcon Sanchez MD ?? Date of Service: 02/23/25 ?? Procedure(s): US soft tiss head and/or neck ?? Accession Number(s): [id number] ? cc: Alcon Sanchez MD; Royal Pitt MD ? EXAMINATION: ?? US SOFT TISSUE NECK ? CLINICAL INFORMATION: ?? Tender mass.. ? COMPARISON: ?? None available. ? TECHNIQUE: ?? Linear transducer marte-scale and color Doppler examination with ?? attention to the right upper neck. ? FINDINGS: ? There is no questionable 1.7 cm well-defined ovoid shaped hypoechoic ?? soft tissue lesion without flow on color Doppler interrogation or areas ?? of calcification. ? US/US soft tiss head and/or neck ?? IMPRESSION: ?? 1.7 cm nonvascular soft tissue lesion. ? Electronically signed by: ??Taqueria [place] MD ??02/24/2025 07:36 AM ?? EDT RP ? Dictated By: ?Taqueria Byrnes MD ? Signed By: ?<Electronically signed by Taqueria Hartman MD in OV> ? 02/24/25735 ? DD/ 1534 ? TD/TT: 02/23/25 1535 ? Advertising Job Titles: ? Procedure Note Donotuseinterpreter, Image - 02/24/[address] [address] Ultrasound Report Signed Patient: Luz Elena Montgomery AMR#: [id number] : 1945cct:[id number] Age/Sex: 79 / FADM Date: 02/23/25 Loc: HO.US Attending Dr: Alcon Sanchez MD Ordering Physician: Alcon Sanchez MD Date of Service: 02/23/25 Procedure(s): US soft tiss head and/or neck Accession Number(s): [id number] cc: Alcon Sanchez MD; Name,Royal BEATTY EXAMINATION: US SOFT TISSUE NECK CLINICAL INFORMATION: Tender mass.. COMPARISON: None available. TECHNIQUE: Linear transducer marte-scale and color Doppler examination with attention to the right upper neck. FINDINGS: There is no questionable 1.7 cm well-defined ovoid shaped hypoechoic soft tissue lesion without flow on color Doppler interrogation or areas of calcification. US/US soft tiss head and/or neck IMPRESSION: 1.7 cm nonvascular soft tissue lesion. Electronically signed by: Taqueria [place] MD 02/24/2025 07:36 AM EDT Dictated By: Taqueria Byrnes MD Signed By: <Electronically signed by Taqueria Hartman MDin OV> 02/24/25 0736 DD/ 1534 TD/TT: 02/23/25 153 Advertising Job Titles: us Alcon Sanchez MD IMG US PROCEDURES Final Result * CT Chest w/o Contrast (01/08/2025 12:17 PM EST) Anatomical Region Laterality Modality Body, Chest Computed Tomogra phy 01/08/2025 12:1 7 PM EST Narrative 01/08/2025 12:18 PM EST ? [facility] ?[address] ?[place], [place] [address] ? CT Scan Report ? Signed ? Patient: [facility],Carmen ?MR#: MM ?? [id number] ? : 1945 ?Acct:[id number] ? Age/Sex: 79 / F ?ADM Date: 01/07/25 ? Loc: HO.CT ? Attending Dr: Bertha Williamson SALES SERVICE ASSISTANT ? Ordering Physician: Bertha Williamson NP ?? Date of Service: 01/07/25 ?? Procedure(s): CT chest wo IV con ?? Accession Number(s): [id number] ? cc: Name,Royal BEATTY; Bertha Williamson NP ? Report Number: ?? [id number]: Total DLP = ??226.00 mGy-cm ? CLINICAL HISTORY: J94.8 - Other specified pleural conditions: Plural scarring ? CT chest without contrast ? Comparison: CT/REG/WV/SR - CT CHEST WO IV CON - [...] This document has been electronically signed by: Remedois Garcia MD on ?? 01/08/2025 12:17:16 ? Dictated By: ?Remedios Garcia MD ? Signed By: ?<Electronically signed by Remedios Garcia MD in OV> ?01/08/25 1217 ? DD/ 1217 ? TD/TT: 01/08/25 1217 ? Advertising Job Titles: ? Procedure Note Donottraceeinterpreter, Image - 01/08/[address] [place] [address] [address] Scan Report Signed Patient: Luz Elena Montgomery AMR#: [id number] : 6Acct:[id number] Age/Sex: 79 / FADM Date: 01/07/25 Loc: HO.CT Attending Dr: Bertha Williamson SALES SERVICE ASSISTANT Ordering Physician: Bertha Williamson NP Date of Service: 01/07/25 Procedure(s): CT chest wo IV con Accession Number(s): [id number] cc: Yoandy,Royal BEATTY; Bertha Williamson NP Report Number: [id number]: Total DLP = 226.00 mGy-cm CLINICAL HISTORY: J94.8 - Other specified pleural conditions: Pluralscarring CT chest without contrast Comparison: CT/REG/WV/SR - CT CHEST WO IV CON - [...] 01/08/25 1217 DD/ 1217 TD/TT: 01/08/25 1217 Advertising Job Titles: [facility] External Provider IMG CT PROCEDURES [...] EDT Narrative 09/09/2024 4:59 PM EDT ? [facility] ? [address] ?[place] [address] ? Mammography Report ? Signed ? Patient: Segundo Church,Luz Elena Foote ?MR#: MM ?? [id number] ? : 1945 ?Acct:[id number] ? Age/Sex: 79 / F ?ADM Date: 10/11/24 ? Loc: HO.MAMMO ? Attending Dr: Royal Pitt MD ? Ordering Physician: Royal Pitt MD ?Results: 1Negative ? Date of Service: 08/29/24 ?Follow Up: 1 Year From Orig ?? inal Mammogram ? Procedure(s): MM tomosynthesis screening LT ?? Accession Number(s): [id number] ? cc: Yoandy,Royal BEATTY ? EXAMINATION: ?? MM SCREENING DIGITAL [...] ??Jane Douglas DO ??09/09/2024 04:57 PM EDT ?? RP ? Dictated By: ?Jane Douglas DO ? Signed By: ?<Electronically signed by Jane Douglas, DO in OV> ? 09/09/247 ? DD/ 0945 ? TD/TT: 08/29/24 0955 ? Advertising Job Titles: ? Procedure Note Donmicheleter, Image - 09/09/2024 [facility] [address] [place] [address] [place] [address] Mammography Report Signed Patient: Luz Elena Montgomery AMR#: [id number] : 1945cct:[id number] Age/Sex: 79 / FADM Date: 08/29/24 Loc: HO.MAMMO Attending Dr: Royal Pitt MD Ordering Physician: Royal Pitt MDResults: 1Negative Date of Service: 08/29/24Follow Up: 1 Year From Orig inal Mammogram Procedure(s): MM tomosynthesis screening LT Accession Number(s): [id number] cc: Royal Pitt MD EXAMINATION: MM SCREENING [...] in OV> 09/09/24 1657 DD/ TD/TT: 08/29/24954 Advertising Job Titles: us Paige Name IMG BI PROCEDURES Final Result * (ABNORMAL) Lipid Panel, Standard (05/15/2024 9:10 AM EDT) Triglycerides 170(H) <150 mg/dL [facility] Comment:Desirable Triglyceri de: less than 150 mg/dLBorderline High Triglyceride 150-199 mg/dLHigh Triglyceride: 200-499 mg/dLVery High Triglyceride: greater than or equal to 5OO mg/dL Cholesterol 122 <200 mg/dL [facility] Comment:Desirable Cholestero l: less than 200 mg/dLBorderline High Cholesterol: 200-239 mg/dLHigh Cholesterol: greater than 239 mg/dL LDL Cholesterol Calculated 48 <100 mg/dL [facility] Comment:Desirable LDL: less than 100 mg/dLNear Optimal/Above Optimal LDL: 110- 129 mg/dLBorderline High LDL: 130-159 mg/dLHigh LDL: 160-189 mg/dLVery High LDL: greater than or equal to 190 mg/dL HDL Cholesterol 40(L) >40 mg/dL [facility] Comment:Desirable HDL: great er than 40 mg/dL Note: This HDL assay may give artificially low results in patients with liver disease. Blood Venous blood specimen / Unknown 05/15/2024 9:10 AM EDT 05/15/2024 11:17 AM EDT us Royal Pitt MD LAB BLOOD ORDERABLES Final Resul t [facility] [address] [place] [phone] from Last 3 Months or Most Recently Relevant to Health Maintenance Insurance [facility] Care Teams Induction Machine Setter Relationship Specialty Start Date End Date Name, MD Royal [address] [place] [address] PCP - General Family Medicine 06/16/19 Madhuri Becker, AlissonD [address] [place] [phone] Pharmacist Internal Medicine 03/19/23
--- OUTSIDE RECORDS SUMMARY | 2025-03-12 09:47 | XMS_ITS | Encounter Summary ---
Author Organization [facility], Address [address] [address] Phone Care Team Providers Care Supervisor Instrument Mechanics Name Role Phone Name, Royal BEATTY Primary Care Provider [phone] Encounter Details Date Type Department Care Team ([facility] Contact Info) Description 05/15/2024 Documentation Only [facility] [address] [place] [address] Elidia Cruz MS [address] [place] [phone] Social History Tobacco Use Types Packs/Day Years [...] Upcoming Encounters Date Type Department Care Team ([facility] Contact Info) Description 05/27/2025 2:30 PM EDT Office Visit [facility] [address] [place] [address] Abiel Gross MD [address] [place] [phone] documented as of this encounter Visit Diagnoses Not on filedocumented in this encounter Care Teams Supervisor Instrument Mechanics Relationship Specialty Start Date End Date Name, MD Royal [address] [place] [address] PCP - General 09/23/19 documented as of this encounter
--- OUTSIDE RECORDS SUMMARY | 2025-03-12 09:47 | XMS_ITS | Encounter Summary ---
Author Organization [employer] Address [address] [facility] 7t [place] [address] Care Team Providers Care Power Electronics Research Engineer Name Role Phone Name, Royal BEATTY Primary Care Provider Madhuri Becker PharmD Unavailable [phone] Reason for Visit * Reason Comments Med Refill Encounter Details Date Type Department Care Team ([facility] Contact Info) Description 05/02/2024 Refill [facility] [address] [place] [address] Zechariah Bernabe MD [address] [place] [address] Social History Tobacco Use Types Packs/Day Years [...] Description 03/19/2025 10:00 AM EDT Medication Management [facility] [address] [place] [address] Madhuri Becker PharmD [address] [place] [address] 04/16/2025 9:15 AM EDT Office Visit [facility] [address] [place] [address] Royal Pitt MD [address] [place] [address] documented as of this encounter Goals Goal [...] documented as of this encounter Care Teams Power Electronics Research Engineer Relationship Specialty Start Date End Date NameRoyal MD [address] [place] [address] PCP - General Family Medicine 06/16/19 Madhuri Becker PharmD [address] [place] [address] Pharmacist Internal Medicine 03/19/23 documented as of this encounter
--- OUTSIDE RECORDS SUMMARY | 2025-03-12 09:47 | XMS_ITS | Encounter Summary ---
Author Organization [email or web address] Address [address] [facility] 7t [place] [address] Care Team Providers Care Fac Engineer Name Role Phone Name, Royal BEATTY Primary Care Provider [phone] Madhuri Becker PharmD Unavailable [phone] Reason for Visit * Reason Onset Date Comments Appointment Request 01/01/2025 Encounter Details Date Type Department Care Team ([facility] Contact Info) Description 01/01/2025 Telephone [facility] [address] [place] [address] Name, MD Royal [address] [place] [address] Appointment Request Social History Tobacco Use Types [...] 01/01/2025 8:11 AM EST Tc from pt [facility] requesting to r/s Pt apt for 01/01/25. Contact pt HOOK PULLER at [phone] documented in this encounter Plan of Treatment Upcoming Encounters Date Type Department Care Team ([facility] st Contact Info) Description 03/19/2025 10:00 AM EDT Medication Management [facility] [address] [place] [address] Madhuri Becker, PharmD [address] [place] [address] 04/16/2025 9:15 AM EDT Office Visit [facility] [address] [place] [address] [phone] Name, MD Royal [address] [place] [address] documented as of this encounter Goals Goal [...] documented as of this encounter Care Teams Fac Engineer Relationship Specialty Start Date End Date Name, MD Royal [address] [place] [address] PCP - General Family Medicine 06/16/19 Madhuri Becker PharmD [address] [place] [address] Pharmacist Internal Medicine 03/19/23 documented as of this encounter
--- OUTSIDE RECORDS SUMMARY | 2025-03-12 09:47 | XMS_ITS | Encounter Summary ---
Author Organization [facility], Address [address] [address] Phone Care Team Providers Care Manager Rfid Name Role Phone Name, Royal BEATTY Primary Care Provider [phone] Encounter Details Date Type Department Care Team (Late Contact Info) Description 05/30/2023 Documentation Only [facility] [address] [place] [address] Abiel Gross MD [address] [place] [address] [place] [address] Social History Tobacco Use Types [...] Department Care Team (Late Contact Info) Description 05/27/2025 2:30 PM EDT Office Visit [facility] [address] [place] [address] Abiel Gross MD [address] [place] [address] [place] [address] documented as of this encounter Visit Diagnoses Not on filedocumented in this encounter Care Teams Manager Rfid Relationship Specialty Start Date End Date Name, MD Royal [address] [place] [address] PCP - General 09/23/19 documented as of this encounter
--- OUTSIDE RECORDS SUMMARY | 2025-03-12 09:47 | XMS_ITS | Encounter Summary ---
Author Organization [facility], Address [address] [address] Phone Care Team Providers Care Professor Of Family Medicine Name Role Phone Name, Royal BEATTY Primary Care Provider [phone] Encounter Details Date Type Department Care Team (Late Contact Info) Description 01/18/2022 Documentation Only [facility] [address] [place] [address] Abiel Gross MD [address] [place] [address] [place] [address] Social History Tobacco Use Types [...] Visit [facility] [address] [place] [address] Abiel Gross MD [address] [place] [address] [place] [address] documented as of this encounter Visit Diagnoses Not on filedocumented in this encounter Care Teams Professor Of Family Medicine Relationship Specialty Start Date End Date Name, MD Royal [address] [place] [address] PCP - General 09/23/19 documented as of this encounter
--- OUTSIDE RECORDS SUMMARY | 2025-03-12 09:47 | XMS_ITS | Encounter Summary ---
Author Organization [facility] [place], Address [address] [place] [address] Phone Care Team Providers Care Gate Clerk Name Role Phone Name, Royal BEATTY Primary Care Provider [phone] Encounter Details Date Type Department Care Team ([facility] Contact Info) Description 12/19/2022 Documentation Only [facility] [address] [place] [address] Polina Sarmiento [address] [place] [phone] Social History Tobacco Use Types Packs/Day [...] Care Team ([facility] Contact Info) Description 05/27/2025 2:30 PM EDT Office Visit [facility] [address] [place] [address] Abiel Gross MD [address] [place] [address] [place] [phone] documented as of this encounter Visit Diagnoses Not on filedocumented in this encounter Care Teams Gate Clerk Relationship Specialty Start Date End Date Name, MD Royal [address] [place] [address] PCP - General 09/23/19 documented as of this encounter
--- OUTSIDE RECORDS SUMMARY | 2025-03-12 09:47 | XMS_ITS | Encounter Summary ---
Author Organization [facility] [place], Address [address] [address] Phone Care Team Providers Care Stripper Preliminary Name Role Phone Name, Royal BEATTY Primary Care Provider [phone] Encounter Details Date Type Department Care Team ([facility] Contact Info) Description 03/03/2025 Documentation Only [facility] [address] [place] [address] Elidia Cruz [place] [address] [place] [phone] Social History Tobacco Use Types Packs/Day Years [...] ([facility] Contact Info) Description 05/27/2025 2:30 PM EDT Office Visit [facility] [address] [place] [address] Abiel Gross MD [address] [facility] [place] [phone] documented as of this encounter Visit Diagnoses Not on filedocumented in this encounter Care Teams Stripper Preliminary Relationship Specialty Start Date End Date Name, MD Royal [address] [place] [address] PCP - General 09/23/19 documented as of this encounter
--- OUTSIDE RECORDS SUMMARY | 2025-03-12 09:47 | XMS_ITS | Encounter Summary ---
Author Organization [employer] [facility] Address [address] [place] [address] 7t [place] [address] Care Team Providers Care Travel Pt Name Role Phone Name, Royal BEATTY Primary Care Provider [phone] Madhuri Becker PharmD Unavailable [phone] Encounter Details Date Type Department Care Team ([facility] [place] [facility] Contact Info) Description 01/29/2023 Orders Only [facility] MED & PEDS [address] [place], [place] [phone] Remedios Rider LPN Social History Tobacco Use [...] Upcoming Encounters Date Type Department Care Team ([facility] [place] [facility] Contact Info) Description 03/19/2025 10:00 AM EDT Medication Management [facility] MEDICINE [address] [place] [address] Madhuri Becker, PharmD [address] [place] [address] 04/16/2025 9:15 AM EDT Office Visit [facility] MEDICINE [address] [place] [address] Name, MD Royal [address] [place] [address] documented as of this encounter Visit Diagnoses Not on filedocumented in this encounter Additional Health Concerns Assessment Noted Time PHQ-9 Depression Total Score: 0 11/09/20 22 11:52 AM EST documented as of this encounter Care Teams Travel Pt Relationship Specialty Start Date End Date Name, MD Royal [address] [place] [address] PCP - General Family Medicine 06/16/19 Madhuri Becker PharmD [address] [place] [address] Pharmacist Internal Medicine 03/19/23 documented as of this encounter
--- OUTSIDE RECORDS SUMMARY | 2025-03-12 09:47 | XMS_ITS | Encounter Summary ---
Author Organization [facility] [place], Address [address] [address] Phone Care Team Providers Care Technicians And Trades Workers Name Role Phone Name, Royal BEATTY Primary Care Provider [phone] Encounter Details Date Type Department Care Team ([facility] Contact Info) Description 04/09/2023 Documentation Only [facility] [address] [place] [address] [place] [address] [place] [phone] Social History Tobacco Use Types Packs/Day Years [...] Upcoming Encounters Date Type Department Care Team ([facility] Contact Info) Description 05/27/2025 2:30 PM EDT Office Visit [facility] [address] [address] Abiel Gross MD [address] [place] [address] [place] [phone] documented as of this encounter Visit Diagnoses Not on filedocumented in this encounter Care Teams Technicians And Trades Workers Relationship Specialty Start Date End Date Name, MD Royal [address] [place] [address] PCP - General 09/23/19 documented as of this encounter
--- OUTSIDE RECORDS SUMMARY | 2025-03-12 09:47 | XMS_ITS | Encounter Summary ---
Author Organization [facility] Address [address] [address] Phone Care Team Providers Care Bass Mechanism Maker Name Role Phone Name, Royal BEATTY Primary Care Provider [phone] Reason for Visit * Reason Comments Med Refill Encounter Details Date Type Department Care Team ([facility] Contact Info) Description 03/24/2024 Refill [facility] [address] [place] [address] Abiel Gross MD [address] [place] [address] [place] [address] Social History Tobacco Use Types [...] Upcoming Encounters Date Type Department Care Team ([facility] Contact Info) Description 05/27/2025 2:30 PM EDT Office Visit [facility] [address] [place] [place] [address] Abiel Gross MD [address] [place] [address] [place] [address] documented as of this encounter Visit Diagnoses Not on filedocumented in this encounter Care Teams Bass Mechanism Maker Relationship Specialty Start Date End Date Name, MD Royal [address] [place] [address] PCP - General 09/23/19 documented as of this encounter
--- OUTSIDE RECORDS SUMMARY | 2025-03-12 09:47 | XMS_ITS | Encounter Summary ---
Author Organization [employer] Address [address] [facility] 7t [place] [address] Care Team Providers Care Kaiawhina Kohanga Reo Name Role Phone Name, Royal BEATTY Primary Care Provider [phone] Madhuri Becker PharmD Unavailable [phone] Reason for Visit * Reason Comments Med Refill Encounter Details Date Type Department Care Team ([facility] Contact Info) Description 05/19/2024 Refill [facility] MEDICINE [address] [place] [address] Maryan Vasquez MD [address] [place] [address] Social History Tobacco Use Types Packs/Day Years [...] Description 03/19/2025 10:00 AM EDT Medication Management [facility] MEDICINE [address] [place] [address] Madhuri Becker PharmD [address] [place] [address] 04/16/2025 9:15 AM EDT Office Visit [facility] MEDICINE [address] [place] [address] Royal Pitt MD [address] [place] [address] documented as of this encounter Goals Goal [...] documented as of this encounter Care Teams Kaiawhina Kohanga Reo Relationship Specialty Start Date End Date NameRoyal MD [address] [place] [address] PCP - General Family Medicine 06/16/19 Madhuri Becker PharmD [address] [place] [address] Pharmacist Internal Medicine 03/19/23 documented as of this encounter
--- OUTSIDE RECORDS SUMMARY | 2025-03-12 09:47 | XMS_ITS | Encounter Summary ---
Author Organization [employer] [facility] Address [address] [place] [address] 7t [place] [address] Care Team Providers Care Push Button Switch Assembler Name Role Phone Name, Royal BEATTY Primary Care Provider Madhuri Becker PharmD Unavailable Encounter Details Date Type Department Care Team (Late st Contact Info) Description 11/02/2022 Orders Only [facility] [address] [place] [address] Nory Brown LPN Social History Tobacco Use [...] Description 03/19/2025 10:00 AM EDT Medication Management [facility] MEDICINE [address] [place] [address] Madhuri Becker, PharmD [address] [place] [address] 04/16/2025 9:15 AM EDT Office Visit [facility] MEDICINE [address] [place] [address] Name, MD Royal [address] [place] [address] documented as of this encounter Visit Diagnoses Not on filedocumented in this encounter Care Teams Push Button Switch Assembler Relationship Specialty Start Date End Date Name, MD Royal [address] [place] [address] PCP - General Family Medicine 06/16/19 Madhuri Becker PharmD [address] [place] [address] Pharmacist Internal Medicine 03/19/23 documented as of this encounter
== END 2025-03-12 09:04 | disposition home or self-care (01) ==
LOC: HO.MAMMO 09:03
PROVIDERS: PCP Internal Medicine Geriatric Medicine; Visit Provider Obstetrics & Gynecology
DX: Z13.820 Encounter for screening for osteoporosis (principal); Z78.0 Asymptomatic menopausal state
CPT/HCPCS: 77080

== ENCOUNTER → 2025-03-12 09:15 | Outpatient (BNV) | payer OTHER, SELFPAY | PROVIDERS: PCP Internal Medicine Geriatric Medicine; Visit Provider Radiology Diagnostic Radiology | DX: E28.39 Other primary ovarian failure (principal) | CPT/HCPCS: 77080 ==

== ENCOUNTER 2025-03-25 14:00 | Outpatient (AMB) | payer OTHER, SELFPAY ==
--- NOTE | 2025-03-25 14:15 | A.OFFVIS_ITS ---
Vital Signs 03/25/25 14:17 Height 5 ft 4 in Weight 240 lb BMI 41.2 Intake Visit Reasons: DEXA results Emergency Management System Director Required: Yes Emergency Management System Director Language: Frame Runner Services: Emergency Management System Director Present (in person) Emergency Management System Director Name: Magdalena FERRELL Information Interpreted: non-clinical & clinical Accompanied by: Self / Same As Patient Allergies No Known Allergies [No Known Allergies*] Allergy (Verified 03/25/25 14:18) Post menopausal: Yes HPI Comments Details: Presenting for DEXA scan follow-up which showed the following: The bone mineral density of the lumbar spine is 1.282 with a T-score of 0.8, and a Z-score of 1.5. This is indicative of normal bone mineral density. This represents a BMD change of 3.6% compared to the prior exam. This is statistically significant. The bone mineral density of the left total hip is 0.972 with a T-score of -0.3, and a Z-score of 0.8. This is indicative of normal bone mineral density. This represents a BMD change of 29.9% compared to the prior exam. This is not statistically significant. The bone mineral density of the left femoral neck is 0.768 with a T-score of -1.9, and a Z-score of -0.6. This is indicative of osteopenia. This represents a BMD change of 18.5% compared to the prior exam. FRACTURE RISK: The FRAX index suggests a ten year probability of major osteoporotic fracture of 8.0%, and of hip fracture 2.1%. The patient alendronate has been discontinued by PCP since kidney function test is decreased [facility] Medical History Hyponatremia Peripheral neuropathy Sepsis COVID-19 CKD (chronic kidney disease), stage IV Hypothyroidism Arthritis Type 2 diabetes mellitus History of right breast cancer Hyperlipemia HTN (hypertension) Surgical History History of hysteroscopy History of tubal ligation H/O eye surgery H/O right mastectomy Social History Household Members: Family Household Members Other:: son in law is her TILE GRADER Housing: Apartment Do you presently have visiting nurse or other home services: Yes Alcohol intake: never Patient Tobacco Use Status: Former Tobacco user Years Smoked: quit 6 years ago service: No Current occupational status: disabled Sexual orientation: Straight/Heterosexual Gender identity: Female Female Reproductive History Menstrual Age of Menarche: 14 Review of Systems Const All systems reviewed & are unremarkable except as noted in HPI and below Reports as per HPI and Reports no additional complaints GI Reports no additional complaints Reports no additional complaints Physical Exam Vital Signs: BMI result Body Mass Index 41.2 Assessment & Plan Assessment & Plan (1) Osteopenia: Code(s): M85.80 - Other specified disorders of bone density and structure, unspecified site Category: Medical Plan: Discussed with the patient the DEXA results and FRAX risk. FRAX risk and T score showed no evidence of osteoporosis. Discussed with the patient all the options for osteoporosis prevention including lifestyle modifications including Ca+D supplements 1200 mg po qd/800 MIU, Weight bearing exercises and proteine supplements. The patient verbalized understanding and agreed plan will repeat DEXA in 2 years. Medications: Discontinued alendronate Discontinued Reason: Doctor's Order 70 mg PO QWEEK 14 tabs 3RF Coding Level of Care Code Est Pt Level 3 (36345) Diagnoses Osteopenia M85.80
[2025-03-25 14:17] VITALS: BMI 41.2
--- OUTSIDE RECORDS SUMMARY | 2025-03-25 15:16 | XMS_ITS | Encounter Summary ---
Author Organization [employer] Address [address] [facility] 7t [place] [address] Care Team Providers Care Check Clerk Name Role Phone Name, Royal BEATTY Primary Care Provider [phone] Madhuri Becker PharmD Unavailable [phone] Encounter Details Date Type Department Care Team (Late st Contact Info) Description 11/02/2022 Orders Only [facility] [address] [place] [address] Nory Brown LPN Social History Tobacco Use [...] Care Team (Late st Contact Info) Description 04/16/2025 9:15 AM EDT Office Visit [facility] MEDICINE [address] [place] [address] Name, MD Royal [address] [place] [address] 04/30/2025 10:00 AM EDT Medication Management [facility] MEDICINE [address] [place] [address] Madhuri Becker, PharmD [address] [place] [address] documented as of this encounter Visit Diagnoses Not on filedocumented in this encounter Care Teams Check Clerk Relationship Specialty Start Date End Date Name, MD Royal [address] [place] [address] PCP - General Family Medicine 06/16/19 Madhuri Becker PharmD [address] [place] [address] Pharmacist Internal Medicine 03/19/23 documented as of this encounter
--- OUTSIDE RECORDS SUMMARY | 2025-03-25 15:16 | XMS_ITS | Encounter Summary ---
Author Organization [facility] [place], Address [address] [place] [address] Phone Care Team Providers Care Furnace Unloader Name Role Phone Name, Royal BEATTY Primary Care Provider [phone] Encounter Details Date Type Department Care Team ([facility] Contact Info) Description 12/19/2022 Documentation Only [facility] [address] [address] Polina Sarmiento [address] [place] [phone] Social History Tobacco Use Types Packs/Day [...] Upcoming Encounters Date Type Department Care Team ([facility] Contact Info) Description 05/27/2025 2:30 PM EDT Office Visit [facility] [address] [address] Abiel Gross MD [address] [place] [address] [place] [phone] documented as of this encounter Visit Diagnoses Not on filedocumented in this encounter Care Teams Furnace Unloader Relationship Specialty Start Date End Date Name, MD Royal [address] [place] [address] PCP - General 09/23/19 documented as of this encounter
--- OUTSIDE RECORDS SUMMARY | 2025-03-25 15:16 | XMS_ITS | Encounter Summary ---
Author Organization [facility] [place], Address [address] [address] Phone Care Team Providers Care Development Writer Name Role Phone Name, Royal BEATTY Primary Care Provider [phone] Encounter Details Date Type Department Care Team ([facility] Contact Info) Description 04/09/2023 Documentation Only [facility] [address] [place] [address] [place] [address] [place] [phone] Social History Tobacco Use Types Packs/Day Years [...] Encounters Date Type Department Care Team ([facility] Contact Info) Description 05/27/2025 2:30 PM EDT Office Visit [facility] [address] [facility] [address] Abiel Gross MD [address] [place] [address] [place] [phone] documented as of this encounter Visit Diagnoses Not on filedocumented in this encounter Care Teams Development Writer Relationship Specialty Start Date End Date Name, MD Royal [address] [place] [address] PCP - General 09/23/19 documented as of this encounter
--- OUTSIDE RECORDS SUMMARY | 2025-03-25 15:16 | XMS_ITS | Encounter Summary ---
Author Organization [employer] Address [address] [facility] 7t [place] [address] Care Team Providers Care Medical Dosimetrist Name Role Phone Name, Royal BEATTY Primary Care Provider [phone] Madhuri Becker PharmD Unavailable [phone] Reason for Visit * Reason Onset Date Comments Appointment Request 11/03/2024 Encounter Details Date Type Department Care Team ([facility] st Contact Info) Description 11/03/2024 Telephone [facility] MEDICINE [address] [place] [address] Name, MD Royal [address] [place] [address] Appointment Request Social History Tobacco Use Types [...] 9:22 AM EST Tc from [facility]) requesting to reschedule today's CDTM visit. Please contact [facility] at [phone]. (Nepalese Speaker) documented in this encounter Plan of Treatment Upcoming Encounters Date Type Department Care Team ([facility] st Contact Info) Description 04/16/2025 9:15 AM EDT Office Visit [facility] MEDICINE [address] [place] [address] Name, MD Royal [address] [place] [address] 04/30/2025 10:00 AM EDT Medication Management [facility] MEDICINE [address] [place] [address] Madhuri Becker, PharmD [address] [place] [address] documented as of this encounter Goals Goal Patient Goal Type Associated Problems Recent Progress Patient-Stated? Author Hemoglobin A1c < 8 Result Component 8.8( 5 10:18 AM EDT) No Madhuri Becker, PharmD Record your blood [...] documented as of this encounter Care Teams Medical Dosimetrist Relationship Specialty Start Date End Date Name, MD Royal [address] [place] [address] PCP - General Family Medicine 06/16/19 Madhuri Becker, [employer] [address] [place] [address] Pharmacist Internal Medicine 03/19/23 documented as of this encounter
--- OUTSIDE RECORDS SUMMARY | 2025-03-25 15:16 | XMS_ITS | Encounter Summary ---
Author Organization [facility] [place], Address [address] [address] Phone Care Team Providers Care Staff Accountant Name Role Phone Name, Royal BEATTY Primary Care Provider [phone] Encounter Details Date Type Department Care Team (Late Contact Info) Description 05/30/2023 Documentation Only [facility] [address] [place] [address] Abiel Gross MD [address] [place] [address] [place] [address] Social History Tobacco Use [...] Visit [facility] [address] [place] [address] Abiel Gross MD [address] [place] [address] [place] [address] documented as of this encounter Visit Diagnoses Not on filedocumented in this encounter Care Teams Staff Accountant Relationship Specialty Start Date End Date Name, MD Royal [address] [place] [address] PCP - General 09/23/19 documented as of this encounter
--- OUTSIDE RECORDS SUMMARY | 2025-03-25 15:16 | XMS_ITS | Encounter Summary ---
Author Organization [facility] [place], Address [address] [address] Phone Care Team Providers Care Passenger Service Representative Name Role Phone Name, Royal BEATTY Primary Care Provider [phone] Reason for Visit * Reason Comments Med Refill Encounter Details Date Type Department Care Team ([facility] Contact Info) Description 11/06/2022 Refill [facility] [address] [place] [phone] Abiel Gross MD [address] [place] [address] [place] [address] Social History Tobacco Use Types [...] Upcoming Encounters Date Type Department Care Team ([facility] Contact Info) Description 05/27/2025 2:30 PM EDT Office Visit [facility], [address] [facility] [place] [address] Abiel Gross MD [address] [place] [address] [place] [address] documented as of this encounter Visit Diagnoses Not on filedocumented in this encounter Care Teams Passenger Service Representative Relationship Specialty Start Date End Date Name, MD Royal [address] [place] [address] PCP - General 09/23/19 documented as of this encounter
--- OUTSIDE RECORDS SUMMARY | 2025-03-25 15:16 | XMS_ITS | Encounter Summary ---
Author Organization [employer] Address [address] [facility] 7t [place] [address] Care Team Providers Care Mechanical Repair Worker Name Role Phone Name, Royal BEATTY Primary Care Provider [phone] Madhuri Becker PharmD Unavailable [phone] Reason for Visit * Reason Onset Date Comments Created In Error 07/30/2024 Encounter Details Date Type Department Care Team ([facility] Contact Info) Description 07/30/2024 Telephone [facility] [address] [place] [address] Name, MD Royal [address] [place] [address] Created In Error Social History Tobacco Use [...] Description 04/16/2025 9:15 AM EDT Office Visit [facility] [address] [place] [address] Name, MD Royal [address] [place] [address] 04/30/2025 10:00 AM EDT Medication Management [address] [address] Madhuri Becker, PharmD [address] [place] [address] documented as of this encounter Goals Goal Patient Goal Type Associated Problems Recent Progress Patient-Stated? Author Hemoglobin A1c < 8 Result Component 8.8( 10:18 AM EDT) No Puia, Madhuri, PharmD Record your blood [...] documented as of this encounter Care Teams Mechanical Repair Worker Relationship Specialty Start Date End Date Name, MD Royal [address] [place] [address] PCP - General Family Medicine 06/16/19 Madhuri Becker PharmD [address] [place] [address] Pharmacist Internal Medicine 03/19/23 documented as of this encounter
--- OUTSIDE RECORDS SUMMARY | 2025-03-25 15:16 | XMS_ITS | Encounter Summary ---
Author Organization [employer] Address [address] [facility] 7t [place] [address] Care Team Providers Care Toll Service Observer Name Role Phone Name, Royal BEATTY Primary Care Provider [phone] Madhuri Becker PharmD Unavailable [phone] Reason for Visit * Reason Onset Date Comments Appointment Request 01/01/2025 Encounter Details Date Type Department Care Team ([facility] st Contact Info) Description 01/01/2025 Telephone [facility] [address] [place] [address] Name, MD Royal [address] [place] [address] Appointment Request Social History Tobacco Use Types [...] 01/01/2025 8:11 AM EST Tc from pt CONSTRUCTION OR LEAK GANG LABORER requesting to r/s Pt apt for 01/01/25. Contact pt CONSTRUCTION OR LEAK GANG LABORER at [phone] documented in this encounter Plan of Treatment Upcoming Encounters Date Type Department Care Team ([facility] st Contact Info) Description 04/16/2025 9:15 AM EDT Office Visit [facility] [address] [place] [address] Name, MD Royal [address] [place] [address] 04/30/2025 10:00 AM EDT Medication Management [facility] [address] [place] [address] [phone] Madhuri Becker, [employer] [address] [place] [address] documented as of this encounter Goals Goal Patient Goal Type Associated Problems Recent Progress Patient-Stated? Author Hemoglobin A1c < 8 Result Component 8.8(05/01/202 5 10:18 AM EDT) No Madhuri Becker PharmD Record your blood [...] documented as of this encounter Care Teams Toll Service Observer Relationship Specialty Start Date End Date Name, MD Royal [address] [place] [address] PCP - General Family Medicine 06/16/19 Madhuri Becker PharmD [address] [place] [address] Pharmacist Internal Medicine 03/19/23 documented as of this encounter
--- OUTSIDE RECORDS SUMMARY | 2025-03-25 15:16 | XMS_ITS | Encounter Summary ---
Author Organization [facility] [place], Address [address] [address] Phone Care Team Providers Care Supervisor Paper Testing Name Role Phone Name, Royal BEATTY Primary Care Provider Encounter Details Date Type Department Care Team (Late Contact Info) Description 01/18/2022 Documentation Only [facility] [address] [place] [address] Abiel Gross MD [address] [place] [address] [place] [address] Social History Tobacco Use Types [...] Visit [facility] [address] [place] [address] Abiel Gross MD [address] [place] [address] [place] [address] documented as of this encounter Visit Diagnoses Not on filedocumented in this encounter Care Teams Supervisor Paper Testing Relationship Specialty Start Date End Date Name, MD Royal [address] [place] [address] PCP - General 09/23/19 documented as of this encounter
--- OUTSIDE RECORDS SUMMARY | 2025-03-25 15:17 | XMS_ITS | Encounter Summary ---
Author Organization [facility] [place], Address [address] [address] Phone Care Team Providers Care Supervisor Quality Control Name Role Phone Name, Royal BEATTY Primary Care Provider [phone] Encounter Details Date Type Department Care Team ([facility] Contact Info) Description 03/03/2025 Documentation Only [facility] [address] [place] [address] Elidia Cruz [place] [address] [place] [phone] Social History Tobacco Use Types Packs/Day Years [...] Upcoming Encounters Date Type Department Care Team ([facility] Contact Info) Description 05/27/2025 2:30 PM EDT Office Visit [facility] [address] [place] [address] Abiel Gross MD [address] [facility] [address] [place] [phone] documented as of this encounter Visit Diagnoses Not on filedocumented in this encounter Care Teams Supervisor Quality Control Relationship Specialty Start Date End Date Name, MD Royal [address] [place] [address] PCP - General 09/23/19 documented as of this encounter
--- OUTSIDE RECORDS SUMMARY | 2025-03-25 15:17 | XMS_ITS | Encounter Summary ---
Author Organization [facility] [place], Address [address] [address] Phone Care Team Providers Care Electronic Video Games Servicer Name Role Phone Name, Royal BEATTY Primary Care Provider [phone] Reason for Visit * Reason Comments Med Refill Encounter Details Date Type Department Care Team ([facility] Contact Info) Description 03/25/2024 Refill [facility] [address] [place] [phone] Abiel Gross MD [address] [place] [address] [place] [address] Social History Tobacco Use Types [...] Upcoming Encounters Date Type Department Care Team ([facility] Contact Info) Description 05/27/2025 2:30 PM EDT Office Visit [facility], [address] [place] [address] Abiel Gross MD [address] [place] [address] [place] [address] documented as of this encounter Visit Diagnoses Not on filedocumented in this encounter Care Teams Electronic Video Games Servicer Relationship Specialty Start Date End Date Name, MD Royal [address] [place] [address] PCP - General 09/23/19 documented as of this encounter
--- OUTSIDE RECORDS SUMMARY | 2025-03-25 15:17 | XMS_ITS | Encounter Summary ---
Author Organization [facility] [place], Address [address] [address] Phone Care Team Providers Care Hub Borer Name Role Phone Name, Royal BEATTY Primary Care Provider [phone] Encounter Details Date Type Department Care Team ([facility] Contact Info) Description 03/20/2025 Documentation Only [facility] [address] [place] [address] Elidia Cruz [place] [address] [place] [phone] Social History Tobacco Use Types Packs/Day Years [...] Upcoming Encounters Date Type Department Care Team ([facility] Contact Info) Description 05/27/2025 2:30 PM EDT Office Visit [facility] [address] [place] [address] Abiel Gross MD [address] [facility] [place] [phone] documented as of this encounter Visit Diagnoses Not on filedocumented in this encounter Care Teams Hub Borer Relationship Specialty Start Date End Date Name, MD Royal [address] [place] [address] PCP - General 09/23/19 documented as of this encounter
--- OUTSIDE RECORDS SUMMARY | 2025-03-25 15:17 | XMS_ITS | Encounter Summary ---
Author Organization [employer] Address [address] [facility] 7t [place] [address] Care Team Providers Care Maintenance Supervisor Name Role Phone Name, Royal BEATTY Primary Care Provider [phone] Madhuri Becker PharmD Unavailable [phone] Reason for Visit * Reason Comments Med Refill Encounter Details Date Type Department Care Team ([facility] Contact Info) Description 04/25/2024 Refill [facility] [address] [place] [address] Madhuri Becker, PharmD [address] [place] [address] Type 2 diabetes mellitus with stage 4 chronic kidney disease, with long-term current use of insulin ([facility]) Social History Tobacco Use Types Packs/Day Years [...] Description 04/16/2025 9:15 AM EDT Office Visit [facility] [address] [place] [address] Name, MD Royal [address] [place] [address] 04/30/2025 10:00 AM EDT Medication Management [address] [address] Madhuri Becker, PharmD [address] [place] [address] documented as of this encounter Goals Goal Patient Goal Type Associated Problems Recent Progress Patient-Stated? Author Hemoglobin A1c < 8 Result Component 8.8( 10:18 AM EDT) No Puia Madhuri, PharmD Record your blood sugar as directed Result Component No Puia Madhuri, PharmD Note: Use CGM, as instructed, ensuring sensor is scanned at least Q8hr. Check BG via fingerstick as needed & as directed. documented as of this encounter Visit Diagnoses Diagnosis Type 2 diabetes mellitus with stage 4 chronic kidney disease, with long-term current use of insulin ([facility]) documented in this encounter Additional Health Concerns Assessment Noted Time PHQ-9 Depression Total Score: 0 03/11/20 24 2:52 PM EDT documented as of this encounter Care Teams Maintenance Supervisor Relationship Specialty Start Date End Date Name, MD Royal [address] [place] [address] PCP - General Family Medicine 06/16/19 Madhuri Becker PharmD [address] [place] [address] Pharmacist Internal Medicine 03/19/23 documented as of this encounter
--- OUTSIDE RECORDS SUMMARY | 2025-03-25 15:17 | XMS_ITS | Encounter Summary ---
Author Organization [employer] Address [address] [facility] 7t [place] [address] Care Team Providers Care Rn Circulating Name Role Phone Name, Royal BEATTY Primary Care Provider [phone] Madhuri Becker PharmD Unavailable [phone] Reason for Visit * Reason Onset Date Comments New Script 03/16/2023 Encounter Details Date Type Department Care Team ([facility] st Contact Info) Description 03/16/2023 Telephone [facility] [address] [place] [address] Name, MD Royal [address] [place] [address] New Script Social History Tobacco Use Types [...] Mcknight - 03/16/2023 10:55 AM EDT Tc from [place] with [facility] requesting a script for Six Mastectomy Bras . Please Fax over script at [phone] If any question please contact [place] at [phone] documented in this encounter Plan of Treatment Upcoming Encounters Date Type Department Care Team (Late st Contact Info) Description 04/16/2025 9:15 AM EDT Office Visit [facility] [address] [place] [address] Royal Pitt MD [address] [place] [address] 04/30/2025 10:00 AM EDT Medication Management [address] [address] Puia, Madhuri, PharmD [address] [place] [address] documented as of this encounter Goals Goal [...] as of this encounter Care Teams Rn Circulating Relationship Specialty Start Date End Date NameRoyal MD [address] [place] [address] PCP - General Family Medicine 06/16/19 Madhuri Becker, AlissonD [address] [place] [address] Pharmacist Internal Medicine 03/19/23 documented as of this encounter
--- OUTSIDE RECORDS SUMMARY | 2025-03-25 15:17 | XMS_ITS | Encounter Summary ---
Author Organization [facility] [place], Address [address] [address] Phone Care Team Providers Care Assurance Specialist Name Role Phone Name, Royal BEATTY Primary Care Provider [phone] Encounter Details Date Type Department Care Team ([facility] Contact Info) Description 05/15/2024 Documentation Only [facility] [address] [place] [address] Elidia Cruz [place] [address] [place] [phone] Social History Tobacco Use Types Packs/Day Years [...] Upcoming Encounters Date Type Department Care Team ([facility] Contact Info) Description 05/27/2025 2:30 PM EDT Office Visit [facility] [address] [place] [address] Abiel Gross MD [address] [facility] [place] [phone] documented as of this encounter Visit Diagnoses Not on filedocumented in this encounter Care Teams Assurance Specialist Relationship Specialty Start Date End Date Name, MD Royal [address] [place] [address] PCP - General 09/23/19 documented as of this encounter
--- OUTSIDE RECORDS SUMMARY | 2025-03-25 15:17 | XMS_ITS | Encounter Summary ---
Author Organization [facility] [place], Address [address] [address] Phone Care Team Providers Care Air Pollution Engineer Name Role Phone Name, Royal BEATTY Primary Care Provider [phone] Encounter Details Date Type Department Care Team ([facility] Contact Info) Description 05/30/2024 Documentation Only [facility] [address] [address] Elidia Cruz [place] [address] [place] [phone] Social History Tobacco Use Types Packs/Day Years [...] Team ([facility] Contact Info) Description 05/27/2025 2:30 PM EDT Office Visit [facility] [address] [address] Abiel Gross MD [address] [facility] [place] [phone] documented as of this encounter Visit Diagnoses Not on filedocumented in this encounter Care Teams Air Pollution Engineer Relationship Specialty Start Date End Date Name, MD Royal [address] [place] [address] PCP - General 09/23/19 documented as of this encounter
--- OUTSIDE RECORDS SUMMARY | 2025-03-25 15:17 | XMS_ITS | Clinical Summary ---
Author Organization [facility] [place], Address [address] [place] [address] [place] [address] Phone Care Team Providers Care Refinish Technician Name Role Phone Name, Royal BEATTY Primary Care Provider [phone] Allergies No known active allergies Medications acetaminophen [...] MORNING 30 capsule 11 03/02/20 25 Active calcitriol (Rocaltrol) 0.25 MCG capsule Take [...] Encounters Date Type Department Care Team Description 03/20/2025 Documentation Only [facility] [address] [place] [address] Elidia Cruz [place] 03/03/2025 Documentation Only [facility] [address] [place] [place] [address] Elidia Cruz [place] 02/28/2025 Refill [facility] [address] [place] [place] [address] Abiel Gross MD 02/24/2025 Documentation Only [facility] [address] [place] [place] [address] Giovanna Sheldon Patient Education; wr; venipuncture charge 02/20/2025 3:45 PM EDT Office Visit [facility] [address] [place] [address] Abiel Gross MD Stage 3b chronic kidney [...] Visit [facility] [place], [address] [place] [address] Abiel Gross MD [address] [facility] [place] [address] Health Maintenance Due Date Last Done Comments Diabetes: Ophthalmology Exam 11/20/2019 Diabetes: Pedal Pulse Checked 11/20/2019 Diabetes: Sensory Foot Exam 11/20/2019 Diabetes: Visual Foot Exam 11/20/2019 Diabetes: Hemoglobin A1C 06/19/2025 025, 12/04/2024, 08/25/2024, Additional history exists Pneumococcal Vaccine: 50+ Years [...] Urine 11-30(A) 0 - 5 /hpf [facility] RBC, Urine None seen 0 - 2 /hpf [facility] Squamous Epithelial, Urine >10(A) 0 - 10 /hpf [facility] Casts None seen None seen /lpf [facility] Bacteria, Urine Few None seen/Few [facility] 02/24/2025 8:39 AM EDT 02/24/2025 Comment:Blood, Venou Microsc o Abiel Gross MD LAB MICROBIOLOGY - GENERAL ORDERABLES Final Result [facility] [address] [place] [address] * Iron Panel (Fe, TIBC, TSAT) (02/24/2025 8:39 AM EDT) Iron 88 27 - 139 ug/dL [facility] TIBC 256 250 - 450 ug/dL [facility] UIBC 168 118 - 369 ug/dL [facility] Iron Saturation (TSat) 34 15 - 55 % [facility] Blood (Blood, Venous) 02/24/2025 8:39 AM EDT 02/24/2025 Comment:Blood, Venou Microsc o Abiel Gross MD LAB BLOOD ORDERABLES Final Result Performing Organization Address [facility] Co de Phone Number [facility] [address] [place] [address] * (ABNORMAL) Urine Albumin / Creatinine Ratio (02/24/2025 8:39 AM EDT) Pathologist [facility] Creatinine, Ur 123.9 Not Estab. mg/dL [facility] Albumin, Urine 113.8 Not Estab. ug/mL [facility] Albumin/Creatin ine Ratio 92(H) 0 - 29 mg/g creat [facility] Comment: ? Normal: ?0 - ??29 ? Moderately increased: 30 - 300 ? Severely increased: ? >300 Urine (Urine, Clean Catch) 02/24/2025 8:39 AM EDT 02/24/2025 Comment:Blood, Venou Microsc o Abiel Gross MD LAB URINE ORDERABLES Final Result Performing Organization Address [facility] Co de Phone Number [facility] [address] [place] [address] * (ABNORMAL) Urinalysis with microscopic (02/24/2025 8:39 AM EDT) Pathologist [facility] Specific [place], Urine 1.015 1.005 - 1.030 [facility] [phone] pH Urine 5.5 5.0 - 7.5 [facility] [phone] Color, Urine Yellow Yellow [facility] Appearance Urine Clear Clear [facility] [phone] WBC Esterase Urine Trace(A) Negative [facility] Protein, Ur 1+(A) Negative/Tra ce [facility] Glucose, Ur Negative Negative [facility] Ketones, Urine Negative Negative [facility] Blood Urine Negative Negative [facility] Bilirubin Urine Negative Negative [facility] Urobilinogen Urine 0.2 0.2 - 1.0 mg/dL [facility] Nitrite, Urine Negative Negative [facility] Microscopic Examination See below: [facility] Comment:Microscopic was ami cated and was performed. Urine (Urine, Clean Catch) 02/24/2025 8:39 AM EDT 02/24/2025 Comment:Blood, Venou Microsc o us Abiel Gross MD LAB URINE ORDERABLES Final Result [facility] [address] [place] [address] * (ABNORMAL) CBC (02/24/2025 8:39 AM EDT) WBC 7.8 3.4 - 10.8 x10E3/uL [facility] RBC 3.21(L) 3.77 - 5.28 x10E6/uL [facility] Hemoglobin 10.4(L) 11.1 - 15.9 g/dL [facility] Hematocrit 31.2(L) 34.0 - 46.6 % [facility] MCV 97 79 - 97 fL [facility] MCH 32.4 26.6 - 33.0 pg [facility] MCHC 33.3 31.5 - 35.7 g/dL [facility] RDW 12.4 11.7 - 15.4 % [facility] Platelets 193 150 - 450 x10E3/uL [facility] Blood (Blood, Venous) 02/24/2025 8:39 AM EDT 02/24/2025 Comment:Blood, Venou Microsc o Abiel Gross MD LAB BLOOD ORDERABLES Final Result [facility] [address] [place] [address] * Uric acid (02/24/2025 8:39 AM EDT) Uric Acid 7.6 3.1 - 7.9 mg/dL [facility] Comment:Therapeutic target f or gout patients: <6.0 Blood (Blood, Venous) 02/24/2025 8:39 AM EDT 02/24/2025 Comment:Blood, Venou Microsc o Abiel Gross MD LAB BLOOD ORDERABLES Final Result [facility] [address] [place] [address] * (ABNORMAL) PTH, intact (02/24/2025 8:39 AM EDT) PTH 115(H) 15 - 65 pg/mL [facility] Blood (Blood, Venous) 02/24/2025 8:39 AM EDT 02/24/2025 Comment:Blood, Venou Microsc o Abiel Gross MD LAB BLOOD ORDERABLES Final Result [facility] [address] [place] [address] * (ABNORMAL) Ferritin (02/24/2025 8:39 AM EDT) Ferritin 223(H) 15 - 150 ng/mL [facility] Blood (Blood, Venous) 02/24/2025 8:39 AM EDT 02/24/2025 Comment:Blood, Venou Microsc o Abiel Gross MD LAB BLOOD ORDERABLES Final Result Performing Organization Address City/[facility]/ZIP Co de Phone Number [facility] [address] [place] [address] * (ABNORMAL) Renal function panel (02/24/2025 8:39 AM EDT) Glucose 212(H) 70 - 99 mg/dL [facility] BUN 65(H) 8 - 27 mg/dL [facility] Creatinine 3.46(H) 0.57 - 1.00 mg/dL [facility] eGFR CKD-EPI CR 2020 13(L) >59 mL/min/1.7 3 [facility] BUN/Creatinine Ratio 19 12 - 28 [facility] Sodium 142 134 - 144 mmol/L [facility] Potassium 4.8 3.5 - 5.2 mmol/L [facility] Chloride 99 96 - 106 mmol/L [facility] Bicarbonate (CO2) 23 20 - 29 mmol/L [facility] Calcium 10.7(H) 8.7 - 10.3 mg/dL [facility] Albumin 4.3 3.8 - 4.8 g/dL [facility] Phosphorus 4.3 3.0 - 4.3 mg/dL [facility] Blood (Blood, Venous) 02/24/2025 8:39 AM EDT 02/24/2025 Comment:Blood, Venou Microsc o Abiel Gross MD LAB BLOOD ORDERABLES Final Result Performing Organization Address [facility] Co de Phone Number [facility] [address] [place] [address] * (ABNORMAL) Hemoglobin A1c (05/16/2021 4:21 PM EDT) Hemoglobin A1C 9.2(H) (4.0-5.6) % [facility] Comment: MONITORING: In known diabetic patients, hemoglobin A1c targets should be discussed with health care provider. DIAGNOSTIC USE: ??The [place] Diabetes Association (ADA) and the World Health [...] 1 Testing performed or reported by [facility], a Service of [facility], [address] [place] [address] Geetha Meléndez MD, Dough Mixer Blood (Blood, Venous) 05/16/2021 4:21 PM EDT 05/16/2021 4:26 PM EDT Abiel Gross MD LAB BLOOD ORDERABLES Final Result [facility] from Last 3 Months or Most Recently Relevant to Health Maintenance Insurance [employer] Dual SNP ([id number]) [place] [id number] Care Teams Refinish Technician Relationship Specialty Start Date End Date Name, MD Royal [address] [place] [address] PCP - General 09/23/19
--- OUTSIDE RECORDS SUMMARY | 2025-03-25 15:17 | XMS_ITS | Encounter Summary ---
Author Organization [employer] Address [address] [facility] [address] [place] [address] Care Team Providers Care Assistant Credit Manager Name Role Phone Name, Royal BEATTY Primary Care Provider [phone] Madhuri Becker PharmD Unavailable [phone] Reason for Visit * Reason Comments Med Refill Encounter Details Date Type Department Care Team ([facility] Contact Info) Description 05/31/2023 Refill [facility] [address] [place] [phone] Royal Pitt MD [address] [place] [phone] Social History Tobacco Use Types Packs/Day Years [...] Department Care Team ([facility] Contact Info) Description 04/16/2025 9:15 AM EDT Office Visit [facility] [address] [place] [phone] Royal Pitt MD [address] [place] [address] 04/30/2025 10:00 AM EDT Medication Management [facility] [address] [place] [address] [phone] Madhuri Becker PharmD [address] [place] [address] documented as of this encounter Goals Goal Patient Goal Type Associated Problems Recent Progress Patient-Stated? Author Hemoglobin A1c < 8 Result Component 8.8( 10:18 AM EDT) No Madhuri Becker PharmD [...] documented as of this encounter Care Teams Assistant Credit Manager Relationship Specialty Start Date End Date Name, MD Royal [address] [place] [address] PCP - General Family Medicine 06/16/19 Madhuri Becker PharmD [address] [place] [address] [phone] Pharmacist Internal Medicine 03/19/23 documented as of this encounter
--- OUTSIDE RECORDS SUMMARY | 2025-03-25 15:17 | XMS_ITS | Encounter Summary ---
Author Organization [employer] Address [address] [facility] [address] [place] [address] Care Team Providers Care Category Consultant Name Role Phone Name, Royal BEATTY Primary Care Provider [phone] Madhuri Becker PharmD Unavailable [phone] Encounter Details Date Type Department Care Team (Late Contact Info) Description 01/29/2023 Orders Only [facility] [address] [place] [address] Remedios Rider LPN Social History Tobacco Use [...] Department Care Team (Late Contact Info) Description 04/16/2025 9:15 AM EDT Office Visit [facility] [address] [place] [phone] Name, MD Royal [address] [place] [phone] 04/30/2025 10:00 AM EDT Medication Management [facility] [address] [place] [address] Madhuri Becker, PharmD [address] [place] [address] documented as of this encounter Visit Diagnoses Not on filedocumented in this encounter Additional Health Concerns Assessment Noted Time PHQ-9 Depression Total Score: 0 11/09/20 22 11:52 AM EST documented as of this encounter Care Teams Category Consultant Relationship Specialty Start Date End Date Name, MD Royal [address] [place] [address] PCP - General Family Medicine 06/16/19 Madhuri Becker, [employer] [address] [place] [address] Pharmacist Internal Medicine 03/19/23 documented as of this encounter
--- OUTSIDE RECORDS SUMMARY | 2025-03-25 15:17 | XMS_ITS | Encounter Summary ---
Author Organization [facility] Address [address] [address] Phone Care Team Providers Care Decorating Machine Operator Name Role Phone Name, Royal BEATTY Primary Care Provider [phone] Reason for Visit * Reason Comments Med Refill Encounter Details Date Type Department Care Team ([facility] Contact Info) Description 03/24/2024 Refill [facility] [address] [place] [address] Abiel Gross MD [address] [place] [address] [place] [address] Social History Tobacco Use Types [...] Upcoming Encounters Date Type Department Care Team ([facility] Contact Info) Description 05/27/2025 2:30 PM EDT Office Visit [facility] [address] [place] [address] Abiel Gross MD [address] [place] [address] [place] [address] documented as of this encounter Visit Diagnoses Not on filedocumented in this encounter Care Teams Decorating Machine Operator Relationship Specialty Start Date End Date Name, MD Royal [address] [place] [phone] PCP - General 09/23/19 documented as of this encounter
--- OUTSIDE RECORDS SUMMARY | 2025-03-25 15:17 | XMS_ITS | Encounter Summary ---
Author Organization [employer] Address [address] [facility] 7[address] [place] [address] Care Team Providers Care Living Supervisor Name Role Phone Name, Royal BEATTY Primary Care Provider [phone] Madhuri Becker PharmD Unavailable [phone] Reason for Visit * Reason Comments Med Refill Encounter Details Date Type Department Care Team ([facility] Contact Info) Description 02/28/2025 Refill [facility] [address] [place] [address] Name, MD Royal [address] [place] [address] Social History Tobacco Use Types Packs/Day Years [...] Description 04/16/2025 9:15 AM EDT Office Visit [facility] [address] [place] [phone] Name, MD Royal [address] [place] [address] 04/30/2025 10:00 AM EDT Medication Management [address] [address] Madhuri Becker, PharmD [address] [place] [address] documented as of this encounter Goals Goal [...] documented as of this encounter Care Teams Living Supervisor Relationship Specialty Start Date End Date Name, MD Royal [address] [place] [address] PCP - General Family Medicine 06/16/19 Madhuri Becker, [employer] [address] [place] [address] Pharmacist Internal Medicine 03/19/23 documented as of this encounter
--- OUTSIDE RECORDS SUMMARY | 2025-03-25 15:17 | XMS_ITS | Encounter Summary ---
Author Organization [employer] Address [address] [facility] 7[address] [place] [address] Care Team Providers Care Institute Scientist Name Role Phone Name, Royal BEATTY Primary Care Provider [phone] Madhuri Becker PharmD Unavailable [phone] Reason for Visit * Reason Comments Med Refill Encounter Details Date Type Department Care Team ([facility] Contact Info) Description 05/02/2024 Refill [facility] [address] [place] [address] Zechariah Bernabe MD [address] [place] [address] Social History Tobacco Use Types Packs/Day Years [...] Description 04/16/2025 9:15 AM EDT Office Visit [facility] [address] [place] [phone] NameRoyal MD [address] [place] [address] 04/30/2025 10:00 AM EDT Medication Management [facility] [address] [place] [phone] PuiaMadhuri, PharmD [address] [place] [phone] documented as of this encounter Goals Goal [...] documented as of this encounter Care Teams Institute Scientist Relationship Specialty Start Date End Date NameRoyal MD [address] [place] [address] PCP - General Family Medicine 06/16/19 Madhuri Becker PharmD [address] [place] [address] Pharmacist Internal Medicine 03/19/23 documented as of this encounter
--- OUTSIDE RECORDS SUMMARY | 2025-03-25 15:17 | XMS_ITS | Clinical Summary ---
Author Organization [employer] Address [address] [facility] [address] [place] [address] Care Team Providers Care Temperature Inspector Name Role Phone Name, Royal BEATTY Primary Care Provider [phone] Madhuri Becker PharmD Unavailable Allergies No known [...] disease, with long-term current use of insulin ([facility]) Use to test blood sugar three times daily 100 each 11 11/30/19 24 Active albuterol (Ventolin HFA) 108 (90 Base) MCG/ACT inhalerIndicati ons:Viral URI Inhale 2 puffs every 6 (six) hours if needed for wheezing or shortness of breath. 18 g 1 08/14/20 24 Active calcium carbonate 1500 (600 Ca) MG tabletIndicatio ns:CKD stage 4 due to type 2 diabetes mellitus ([facility]) TAKE 1 [...] MORNING 30 tablet 5 01/27/20 25 Active Continuous Glucose Modeling And Simulation Analyst (FreeStyle Zoraida 3 Cortez) device 1 each Once per day. Use as directed for CGM 1 each 02/05/20 25 Active Continuous Glucose Sensor (FreeStyle Zoraida 3 Plus Sensor) misc Apply 1 every 15 days as directed for CGM 2 each 02/05/20 25 Active glucose blood (FreeStyle Precision Balaji Test) test stripIndication s:Type 2 diabetes mellitus with stage 4 chronic kidney disease, with long-term current use of insulin ([facility]) Use to test blood sugar up to 3 times daily, as directed 100 each 02/05/20 25 Active rosuvastatin (Crestor) 10 MG tabletIndicatio ns:Essential hypertension TAKE 1 TABLET BY MOUTH EVERY MORNING 30 tablet 3 02/07/20 25 Active BD Pen Needle Rachele U/F 32G X 4 MM miscIndications :Type 2 diabetes mellitus with stage 4 chronic kidney disease, with long-term current use of insulin (CMS/HCC) USE UP TO THREE TIMES DAILY FOR INSULIN 100 each 5 03/04/20 25 Active gabapentin (Neurontin) 100 MG capsule TAKE 1 CAPSULE BY MOUTH AT BEDTIME 30 capsule 03/19/20 25 Active Breo Ellipta 100-25 MCG/ACT aerosol powder INHALE 1 PUFF BY MOUTH EVERY DAY AT THE SAME TIME RINSE MOUTH AFTER USING 03/13/20 25 Active glucose 4 g chewable tabletIndicatio ns:Type 2 diabetes mellitus with stage 4 chronic kidney disease, with long-term current use of insulin (CMS/HCC) Chew 4 tablets (16 g) if needed for low blood sugar. (<70 mg/dL). Recheck BG after 15 minutes and repeat treatment as needed & as directed. 20 tablet 5 03/19/20 25 026 Active Tirzepatide (Mounjaro) 12.5 MG/0.5ML solution auto-injectorIn dications:Type 2 diabetes mellitus with stage 4 chronic kidney disease, with long-term current use of insulin ([facility]) Inject 12.5 mg under the skin 1 (one) time per week. 2 mL 03/19/20 25 Active gabapentin (Neurontin) 100 MG capsule TAKE 1 CAPSULE BY MOUTH AT BEDTIME 30 capsule 09/08/20 24 025 Discontinued insulin pen needle (BD Pen Needle Rachele U/F) 32G x 4 mm miscIndications :Type 2 diabetes mellitus with stage 4 chronic kidney disease, with long-term current use of insulin ([facility]) USE UP TO THREE TIMES DAILY FOR INSULIN 100 each 09/11/20 24 025 Discontinued glucose 4 g chewable tabletIndicatio ns:Type 2 diabetes mellitus with stage 4 chronic kidney disease, with long-term current use of insulin ([facility]) Chew 4 tablets (16 g) if needed for low blood sugar. (<70 mg/dL). Recheck BG after 15 minutes and repeat treatment as needed & as directed. 20 tablet 5 02/05/20 025 Discontinued(Re order (will not trigger notification to Pharmacy)) insulin aspart (NovoLOG FLEXPEN) 100 UNIT/ML penIndications: Type 2 diabetes mellitus with stage 4 chronic kidney disease, with long-term current use of insulin ([facility]/HCC) Inject subQ with meals; 6 units with lunch & 6 units with dinner. 15 mL 2 02/05/20 25 025 Discontinued( erapy completed) insulin degludec (Tresiba FlexTouch) 100 UNIT/ML injectionIndica tions:Type 2 diabetes mellitus with stage 4 chronic kidney disease, with long-term current use of insulin ([facility]) Inject 24 units subQ once daily in the morning. 15 mL 2 02/05/20 25 025 Discontinued(Th erapy completed) Tirzepatide (Mounjaro) 10 MG/0.5ML solution auto-injectorIn dications:Type 2 diabetes mellitus with stage 4 chronic kidney disease, with long-term current use of insulin (CMS/[facility]) Inject 10 mg under the skin 1 (one) time per week. 2 mL 11 02/05/20 25 025 Discontinued(Al ternate therapy) Active Problems Problem Noted Date Diagnosed Date [...] Encounters Date Type Department Care Team Description 03/19/2025 Telephone [facility] [address] [place] [address] Loren Archer, RN 03/19/2025 Travel 03/18/2025 Refill [facility] [address] [place] [address] Royal Pitt MD 03/12/2025 Orders Only [facility] External Provider, [facility] 03/04/2025 Refill [facility] [address] [place] [address] Royal Pitt MD Type 2 diabetes mellitus with stage 4 chronic kidney disease, with long-term current use of insulin ([facility]) 02/28/2025 Refill [facility] [address] [place] [address] Royal Pitt MD 02/24/2025 Telephone [facility] [address] [place] [address] Loren Archer, FRANKIE 02/05/2025 Refill [facility] [address] [place] [address] [place], Yancy, PERENNIAL HOUSE MANAGER Essential hypertension 02/04/2025 Travel 01/30/2025 10:40 AM EDT Office Visit [facility] [address] [place] [address] Alcon Sanchez MD Upper back pain on right side (Primary Dx); Neck mass 01/30/2025 Travel 01/25/2025 Refill [facility] [address] [place] [address] Royal Pitt MD 01/09/2025 Telephone [facility] [address] [place] [address] Maikel Casiano MA february recalls 01/07/2025 Orders Only [facility] External Provider, [facility] 01/02/2025 Refill [facility] [address] [place] [address] Royal Pitt MD Essential hypertension 01/01/2025 Telephone [facility] [address] [place] [address] Name, MD Royal Appointment Request 12/30/2024 Telephone [facility] [address] [place] [address] Karon Esteban MA chartprep 12/30/2024 Refill [facility] [address] [place] [address] NameRoyal MD Essential hypertension 12/26/2024 Refill [facility] [address] [place] [address] Name, MD Royal Generalized pruritus from Last [...] Sign Reading Time Taken Comments Blood Pressure 118/70 03/19/2025 10:12 AM EDT Pulse 87 01/30/2025 10:30 AM EDT Temperature 36.9 ??C (98.4 ??F) 01/30/2025 10:30 AM E DT Respiratory Rate 18 01/30/2025 10:30 AM EDT Oxygen Saturation 97% 01/30/2025 10:30 AM EDT Inhaled Oxygen Concentration - - Weight 106 kg (232 lb 12.8 oz) 03/19/2025 10:12 AM EDT Height 167 cm (5' 5.75 ) 06/10/2024 3:14 PM EDT Body Mass Index 37.86 06/10/2024 3:14 PM EDT Plan of Treatment Upcoming Encounters Date Type Department Care Team (Late st Contact Info) Description 04/16/2025 9:15 AM EDT Office Visit [facility] [address] [place] [address] Name, MD Royal [address] [place] [address] 04/30/2025 10:00 AM EDT Medication Management [facility] [address] [place] [address] Madhuri Becker, PharmD [address] [facility] [place] [id number] Health Maintenance Due Date Last Done Comments Hepatitis C Screening 1963 Diabetes: Foot Exam 08/31/2024 08/31/2023, 08/31/2023, 08/31/2023, Additional history exists SDOH Screening 03/04/2025 03/04/2024 Depression Screening 03/11/2025 03/11/2024, 03/11/20 24 Lipid Panel 05/15/2025 05/15/2024, 07/2023, 06/27/2022 Alcohol/Substance Use Screening 06/10/2025 06/10/2024 Diabetes: Hemoglobin A1C 06/19/2025 025, 12/04/2024, 08/25/2024, Additional history exists Eye Exam 07/24/2025 07/24/2024, 03/2024, 07/24/2024, Additional [...] Component 8.8( 10:18 AM EDT) No Madhuri Becker, PharmD Record your blood sugar as directed Result Component No Madhuri Becker, PharmD Note: Use CGM, as instructed, ensuring sensor is scanned at least Q8hr. Check BG via fingerstick as needed & as directed. Procedures Procedure Name Priority Date/Time Associated Diagnosis Comments POCT GLYCATED HEMOGLOBIN, TOTAL Routine 03/19/2025 10:18 AM EDT Type 2 diabetes mellitus with stage 4 chronic kidney disease, with long-term current use of insulin ([facility]) BD DEXA AXIAL Routine 03/12/2025 9:15 AM EDT US HEAD NECK SOFT TISSUE Routine 02/23/2025 3:34 PM EDT Neck mass CT CHEST WO CONTRAST Routine 01/08/2025 12:17 PM EST BI MAMMOGRAM SCREENING TOMOSYNTHESIS LEFT Routine 08/29/2024 9:45 AM EDT LIPID PANEL, STANDARD Routine 05/15/2024 9:10 AM EDT Type 2 diabetes mellitus with stage 4 chronic kidney disease, with long-term current use of insulin ([facility]) Acute non-recurrent maxillary sinusitis Chronic kidney disease, stage 4 (severe) ([facility]) from Last 3 Months or Most Recently Relevant to Health Maintenance Results * (ABNORMAL) POCT HGB A1C (03/19/2025 10:18 AM EDT) Hemoglobin A1C 8.8(A) 4.0 - 6.0 % QC Media Lot # [id number] Blood 03/19/2025 10:1 8 AM EDT us Royal Name POINT OF CARE TEST ENTER/EDIT OR DERABLES Final Result * BD DEXA Axial (03/12/2025 9:15 AM EDT) Anatomical Region Laterality Modality Body Radiographic Netta ging 03/12/2025 9:15 AM EDT Narrative 03/13/2025 7:50 AM EDT ? [facility] [place] ? [address] [place] [address] ?[phone] ? Mammography Report ? Signed ? Patient: Luz Elena Montgomery ?MR#: MM ?? [id number] ? : 1945 ?Acct:[id number] ? Age/Sex: 79 / F ?ADM Date: 04/24/25 ? Loc: HO.MAMMO ? Attending Dr: You Valencia MD ? Ordering Physician: You Valencia MD ?Results: ? Date of Service: 04/24/25 ?Follow Up: ? Procedure(s): XR DEXA axial skeleton ?? Accession Number(s): [id number] ? cc: Yoandy,Royal BEATTY; You Valencia MD ? EXAMINATION: ??DXA BONE DENSITY AXIAL ? HISTORY: ??Z78.0 - Asymptomatic menopausal state ? TECHNIQUE: [employer] Dual energy absorptiometry (DEXA) ?? of the lumbar spine, total left hip, and femoral neck was performed. ? COMPARISON: Comparison is made with the prior examination dated ?? 08/15/2022. ? FINDINGS: ? The bone mineral density of the lumbar spine is 1.282 with a T-score of ?? 0.8, and a Z-score of 1.5. This is indicative of normal bone mineral ?? density. ? This represents a BMD change of 3.6% compared to the prior exam. ??This ?? is statistically significant. ? The bone mineral density of the left total hip is 0.972 with a T-score ?? of -0.3, and a Z-score of 0.8. This is indicative of normal bone ?? mineral density. ? This represents a BMD change of 29.9% compared to the prior exam. ??This ?? is not statistically significant. ? The bone mineral density of the left femoral neck is 0.768 with a ?? T-score of -1.9, and a Z-score of -0.6. This is indicative of ?? osteopenia. ? This represents a BMD change of 18.5% compared to the prior exam. ? FRACTURE RISK: ?? The FRAX index suggests a ten year probability of major osteoporotic ?? fracture of 8.0%, and of hip fracture 2.1%. ? MM/XR DEXA axial skeleton ?? IMPRESSION: ?? Based on bone mineral density, and according to World Health ?? Organization (WHO) criteria, the diagnosis is consistent with ?? osteopenia. ? All bone density values are in grams per centimeter squared (g/cm2). ?? Statistically, 68% of repeat scans fall within 1 SD (+/- 0.010 g/cm2 ?? for AP spine L1-L4) and 1 SD (+/- 0.012 g/cm2 for femur total) ?? FRAX is a trademark of the [employer]'s ?? [employer] for Metabolic Bone Disease, a World Health Organization (WHO) ?? Collaborating Center. ? Electronically signed by: ??Nitish Coronado MD ??03/13/2025 07:47 AM EDT ?? RP ? Dictated By: ?Nitish Coronado MD ? Signed By: ?<Electronically signed by Nitish Coronado MD in OV> ?03/13/2547 ? DD/ 0915 ? TD/TT: 03/12/25 0935 ? Floor Worker Well Service: ? Procedure Note Lane, Image - 03/13/2025 [facility] [address] [place] [address] Mammography Report Signed Patient: Luz Elena Montgomery AMR#: [id number] : 6Acct:[id number] Age/Sex: 79 / FADM Date: 03/12/25 Loc: AMRIT Attending Dr: You Valencia MD Ordering Physician: You Valenciaults: Date of Service: 03/12/25Follow Up: Procedure(s): XR DEXA axial skeleton Accession Number(s): [id number] cc: Royal Pitt MD; You Valencia MD EXAMINATION: DXA BONE DENSITY AXIAL HISTORY: Z78.0 - Asymptomatic menopausal state TECHNIQUE: [employer] Dual energy absorptiometry (DEXA) of the lumbar spine, total left hip, and femoral neck was performed. COMPARISON: Comparison is made with the prior examination dated 08/15/2022. FINDINGS: The bone mineral density of the lumbar spine is 1.282 with a T-score of 0.8, and a Z-score of 1.5. This is indicative of normal bone mineral density. This represents a BMD change of 3.6% compared to the prior exam. This is statistically significant. The bone mineral density of the left total hip is 0.972 with a T-score of -0.3, and a Z-score of 0.8. This is indicative of normal bone mineral density. This represents a BMD change of 29.9% compared to the prior exam. This is not statistically significant. The bone mineral density of the left femoral neck is 0.768 with a T-score of -1.9, and a Z-score of -0.6. This is indicative of osteopenia. This represents a BMD change of 18.5% compared to the prior exam. FRACTURE RISK: The FRAX index suggests a ten year probability of major osteoporotic fracture of 8.0%, and of hip fracture 2.1%. MM/XR DEXA axial skeleton IMPRESSION: Based on bone mineral density, and according to World Health Organization (WHO) criteria, the diagnosis is consistent with osteopenia. All bone density values are in grams per centimeter squared (g/cm2). Statistically, 68% of repeat scans fall within 1 SD (+/- 0.010 g/cm2 for AP spine L1-L4) and 1 SD (+/- 0.012 g/cm2 for femur total) FRAX is a trademark of the [employer] Metabolic Bone Disease, a World Health Organization (WHO) Collaborating Center. Electronically signed by: Nitish Coronado MD 03/13/2025 07:47 AM EDT Dictated By: Nitish Coronado MD Signed By: <Electronically signed by Nitish Coronado MD in OV> 03/13/25 0747 DD/ 0915 TD/TT: 03/12/25 0935 Floor Worker Well Service: [facility] External Provider IMG DXA PROCEDURES Edited Result - Final * US Head Neck Soft Tissue (02/23/2025 3:34 PM EDT) Anatomical Region Laterality Modality Head, Neck Ultrasound 02/23/2025 3:34 PM EDT Narrative 02/24/2025 7:38 AM EDT ? [facility] ?[address] ?[place], [place] [address] ? Ultrasound Report ? Signed ? Patient: Segundo Church,Carmen ?MR#: MM ?? [id number] ? : 1945 ?Acct:[id number] ? Age/Sex: 79 / F ?ADM Date: 02/23/25 ? Loc: HO.US ? Attending Dr: Alcon Sanchez MD ? Ordering Physician: Alcon Sanchez MD ?? Date of Service: 02/23/25 ?? Procedure(s): US soft tiss head and/or neck ?? Accession Number(s): [id number] ? cc: Alcon Sanchez MD; Royal Pitt [...] Temple MD ??02/24/2025 07:36 AM ?? EDT ? Dictated By: ?Taqueria Byrnes MD ? Signed By: ?<Electronically signed by Taqueria Hartman MD in OV> ? 02/24/25 0736 ? DD/ 1534 ? TD/TT: 02/23/25 1535 ? Floor Worker Well Service: ? Procedure Note Luiz Sherman - 02/24/[address] [address] Ultrasound Report Signed Patient: Luz Elena Montgomery AMR#: [id number] : 6Acct:[id number] Age/Sex: 79 / FADM Date: 02/23/25 Loc: HO.US Attending Dr: Alcon Sanchez MD Ordering Physician: Alcon Sanchez MD Date of Service: 02/23/25 Procedure(s): US soft tiss head and/or neck Accession Number(s): [id number] cc: Alcon Sanchez MD; Name,Royal BEATTY EXAMINATION: [...] Taqueria Temple MD 02/24/2025 07:36 AM EDT RP Dictated By: Taqueria Byrnes MD Signed By: <Electronically signed by Taqueria Hartman MDin OV> 02/24/25 0736 DD/ 1534 TD/TT: 02/23/25 1535 Floor Worker Well Service: Alcon Sanchez MD IMG US PROCEDURES Final Result * CT Chest w/o Contrast (01/08/2025 12:17 PM EST) Anatomical Region Laterality Modality Body, Chest Computed Tomogra phy 01/08/2025 12:1 7 PM EST Narrative 01/08/2025 12:18 PM EST ? [facility] ?[address] ?[place] [address] ? CT Scan Report ? Signed ? Patient: Segundo Church,Carmen ?MR#: MM ?? [id number] ? : 1945 ?Acct:[id number] ? Age/Sex: 79 / F ?ADM Date: 02/19/25 ? Loc: HO.CT ? Attending Dr: Bertha Williamson MAIL DISTRIBUTION CLERK ? Ordering Physician: Bertha Williamson NP ?? Date of Service: 01/07/25 ?? Procedure(s): CT chest wo IV con ?? Accession Number(s): [id number] ? cc: Name,Royal BEATTY; Bertha Williamson NP ? Report Number: ?? [id number]: Total DLP = ??226.00 mGy-cm ? CLINICAL HISTORY: J94.8 - Other specified pleural conditions: Plural scarring ? CT chest without contrast ? Comparison: CT/REG/[place]/SR - CT CHEST WO IV CON - [...] signed by Remedios Garcia MD in OV> ?01/08/257 ? DD/ 1217 ? TD/TT: 01/08/257 ? Floor Worker Well Service: ? Procedure Note Luiz Sherman - 01/08/[address] [place] [address] CT Scan Report Signed Patient: Luz Elena Montgomery AMR#: [id number] : 6Acct:[id number] Age/Sex: 79 / FADM Date: 01/07/25 Loc: HO.CT Attending Dr: Bertha Williamson NP Ordering Physician: Betrha Williamson NP Date of Service: 01/07/25 Procedure(s): CT chest wo IV con Accession Number(s): [id number] cc: Yoandy,Royal BEATTY; Bertha Williamson NP Report Number: [id number]: Total DLP = 226.00 mGy-cm CLINICAL HISTORY: J94.8 - Other specified pleural conditions: Pluralscarring CT chest without contrast Comparison: CT/REG/[place]/SR - CT CHEST WO IV CON - [...] Garcia MD in OV> 01/08/25 1217 DD/ 16 TD/TT: 01/08/251216 Floor Worker Well Service: us [facility] External Provider IMG CT PROCEDURES Final Result * BI Mammogram Screening Tomosynthesis Left (08/29/2024 9:45 AM EDT) Anatomical Region Laterality Modality Breast Left Mammography 08/29/2024 9:45 AM EDT Narrative 09/09/2024 4:59 PM EDT ? [facility] ? [address] ?[place] [address] ? Mammography Report ? Signed ? Patient: Luz Elena Montgomery ?MR#: MM ?? [id number] ? : 1945 ?Acct:[id number] ? Age/Sex: 79 / F ?ADM Date: 08/29/24 ? Loc: HO.MAMMO ? Attending Dr: Royal Name MD ? Ordering Physician: Name,Royal BEATTY ?Results: 1Negative ? Date of Service: 08/29/24 ?Follow Up: 1 Year From Orig ?? inal Mammogram ? Procedure(s): MM tomosynthesis screening LT ?? Accession Number(s): [id number] ? cc: Name,Royal BEATTY ? EXAMINATION: ?? [...] DD/ 0945 ? TD/TT: 08/29/24 0955 ? Floor Worker Well Service: ? Procedure Note Lane, Image - 09/09/2024 [facility] [address] [place] [address] [place] [address] Mammography Report Signed Patient: Luz Elena Montgomery AMR#: [id number] : 6Acct:[id number] Age/Sex: 79 / FADM Date: 08/29/24 Loc: AMRIT Attending Dr: Royal Pitt MD Ordering Physician: Royal Pittults: 1Negative Date of Service: 08/29/24Follow Up: 1 Year From Orig inal Mammogram Procedure(s): MM tomosynthesis screening LT Accession Number(s): [id number] cc: Royal Pitt MD EXAMINATION: MM SCREENING [...] DO in OV> 09/09/24 1657 DD/ TD/TT: 08/29/24 0955 Floor Worker Well Service: Royal Pitt MD IMG BI PROCEDURES Final Result * (ABNORMAL) Lipid Panel, Standard (05/15/2024 9:10 AM EDT) Triglycerides 170(H) <150 mg/dL [facility] Comment:Desirable Triglyceri de: less than 150 mg/dLBorderline High Triglyceride 150-199 mg/dLHigh Triglyceride: 200-499 mg/dLVery High Triglyceride: greater than or equal to 5OO mg/dL Cholesterol 122 <200 mg/dL [facility] Comment:Desirable Cholestero l: less than 200 mg/dLBorderline High Cholesterol: 200-239 mg/dLHigh Cholesterol: greater than 239 mg/dL LDL Cholesterol Calculated 48 <100 mg/dL [facility] Comment:Desirable LDL: less than 100 mg/dLNear Optimal/Above Optimal LDL: 110- 129 mg/dLBorderline High LDL: 130-159 mg/dLHigh LDL: 160-189 mg/dLVery High LDL: greater than or equal to 190 mg/dL HDL Cholesterol 40(L) >40 mg/dL [facility] Comment:Desirable HDL: great er than 40 mg/dL Note: This HDL assay may give artificially low results in patients with liver disease. Blood Venous blood specimen / Unknown 05/15/2024 9:10 AM EDT 05/15/2024 11:17 AM EDT us Royal Name LAB BLOOD ORDERABLES Final Resul t [facility] [address] [place] [phone] from Last 3 Months or Most Recently Relevant to Health Maintenance [place] [address] [place] [address] STANDARD [facility] [employer] (HMO D-SNP) Care Teams Temperature Inspector Relationship Specialty Start Date End Date Name, MD Royal [address] [place] [address] PCP - General Family Medicine 06/16/19 Madhuri Becker PharmD [address] [place] [address] Pharmacist Internal Medicine 03/19/23
--- OUTSIDE RECORDS SUMMARY | 2025-03-25 15:17 | XMS_ITS | Encounter Summary ---
Author Organization [employer] Address [address] [facility] 7t [place] [address] Care Team Providers Care Refrigeration Engine Operator Name Role Phone Name, Royal BEATTY Primary Care Provider [phone] Madhuri Becker PharmD Unavailable [phone] Reason for Visit * Reason Comments Med Refill Encounter Details Date Type Department Care Team ([facility] Contact Info) Description 05/19/2024 Refill [facility] [address] [place] [address] Maryan Vasquez MD [address] [place] [address] Social History Tobacco Use Types Packs/Day Years [...] Description 04/16/2025 9:15 AM EDT Office Visit [facility] [address] [place] [address] NameRoyal MD [address] [place] [phone] 04/30/2025 10:00 AM EDT Medication Management [facility] [address] [place] [phone] PuiaMadhuri, PharmD [address] [place] [phone] documented as of this encounter Goals Goal [...] documented as of this encounter Care Teams Refrigeration Engine Operator Relationship Specialty Start Date End Date NameRoyal MD [address] [place] [address] PCP - General Family Medicine 06/16/19 Madhuri Becker PharmD [address] [place] [address] Pharmacist Internal Medicine 03/19/23 documented as of this encounter
== END 2025-03-25 15:08 | disposition home or self-care (01) ==
LOC: HO.HWS 14:00
PROVIDERS: PCP Internal Medicine Geriatric Medicine; Visit Provider Obstetrics & Gynecology
DX: M85.80 Other specified disorders of bone density and structure, unspecified site (principal)
CPT/HCPCS: 99213

== ENCOUNTER → 2025-03-25 14:00 | Outpatient (BNVA) | payer OTHER, SELFPAY | PROVIDERS: PCP Internal Medicine Geriatric Medicine; Visit Provider Obstetrics & Gynecology | DX: M85.80 Other specified disorders of bone density and structure, unspecified site (principal) | CPT/HCPCS: 99212 ==

== ENCOUNTER 2025-04-27 10:22 | Outpatient (REF) | payer OTHER, SELFPAY ==
--- NOTE | ~2025-04-27 | XR_ITS ---
Exam: Five-view lumbar spine TECHNIQUE: AP, bilateral oblique, lateral spot, and lateral views. INDICATION: Chronic low back pain, left sciatica Prior: None FINDINGS: Popcorn calcification in the left hemipelvis could represent a calcified uterine leiomyoma. Other punctate calcifications are most consistent with phleboliths. There is moderate vascular calcification in the abdominal aorta and common iliac arteries. There are 5 nonrib-bearing lumbar segments. There is 10 degrees levoscoliosis. T12-L1: There is mild to moderate loss of disc height and vacuum phenomena. L1-2: There is mild loss of disc height. L2-3: There is mild loss of disc height and mild endplate sclerosis with small anterior osteophytes and mild facet sclerosis. L3-4: There is a grade 1 anterolisthesis. There is endplate sclerosis and degenerative cystic change. There is facet sclerosis and osteophytes. L4-5: There is moderate loss of disc height with vacuum phenomenon, endplate sclerosis, and osteophytes. There is subtle anterolisthesis. There are facet osteophytes and sclerosis. L5-S1: There is minimal loss of disc height. XR/XR lumbar spine 4V min IMPRESSION: Multilevel degenerative disc disease and facet osteoarthritis most advanced at L3-4 and L4-5. Atherosclerotic calcifications. Suspected calcified uterine fibroid Electronically signed by: Marcell Dillon MD 04/27/2025 10:57 AM EDT
--- OUTSIDE RECORDS SUMMARY | 2025-04-27 11:32 | XMS_ITS | Encounter Summary ---
Author Organization [employer] Address [address] [place] [address] [address] [place] [address] Care Team Providers Care Machine Bookkeeper Name Role Phone Name, oRyal BEATTY Primary Care Provider [phone] Madhuri Becker PharmD Unavailable [phone] Encounter Details Date Type Department Care Team (Late st Contact Info) Description 11/02/2022 Orders Only [facility] [address] [place] [address] Nory Brown LPN Social History Tobacco Use [...] Care Team (Late st Contact Info) Description 04/30/2025 10:00 AM EDT Medication Management [facility] [address] [place] [address] PuiaHumbertoMadhuri, PharmD [address] [place] [address] documented as of this encounter Visit Diagnoses Not on filedocumented in this encounter Care Teams Machine Bookkeeper Relationship Specialty Start Date End Date Name, MD Royal [address] [place] [address] PCP - General Family Medicine 06/16/19 Puia, Madhuri, PharmD [address] [place] [id number] Pharmacist Internal Medicine 03/19/23 documented as of this encounter
== END 2025-04-27 10:23 | disposition home or self-care (01) ==
LOC: HO.HHCX 10:22
PROVIDERS: Visit Provider Internal Medicine Geriatric Medicine
DX: M54.42 Lumbago with sciatica, left side (principal); G89.29 Other chronic pain
CPT/HCPCS: 72110

== ENCOUNTER → 2025-04-27 10:22 | Outpatient (BNV) | payer OTHER, SELFPAY | PROVIDERS: Visit Provider Radiology Diagnostic Radiology | DX: M51.369 Other intervertebral disc degeneration, lumbar region without mention of lumbar back pain or lower extremity pain (principal); I25.84 Coronary atherosclerosis due to calcified coronary lesion | CPT/HCPCS: 72110 ==

== ENCOUNTER 2025-05-08 13:18 | Outpatient (REF) | payer OTHER, SELFPAY ==
--- NOTE | ~2025-05-08 | XR_ITS ---
EXAMINATION: XR KNEE, LEFT CLINICAL INFORMATION: acute L knee pain and swelling , unable to stand for long periods of time, decreased range of motion COMPARISON: January 03, 2023 TECHNIQUE: Four views of the left knee. FINDINGS: Moderate vascular calcification is present in the femoral artery, popliteal artery, and crural arteries. There is minimal narrowing of the medial joint space. Moderate marginal osteophytes are present on the tibial plateau and medial femoral condyle. Moderate marginal sites are present along the patellofemoral joint. There is a joint effusion. XR/XR knee LT 4V IMPRESSION: Moderate osteoarthritis is most pronounced in the lateral patellofemoral joint. Joint effusion. Moderate vascular calcifications. Electronically signed by: Marcell Dillon MD 05/08/2025 01:40 PM EDT
--- OUTSIDE RECORDS SUMMARY | 2025-05-08 13:21 | XMS_ITS | Encounter Summary ---
Author Organization [employer] Address [address] [place] [address] [address] [address] Care Team Providers Care Fender Mechanic Name Role Phone Name, Royal BEATTY Primary Care Provider [phone] Madhuri Becker PharmD Unavailable [phone] Encounter Details Date Type Department Care Team (Late st Contact Info) Description 11/02/2022 Orders Only [facility] [address] [place] [address] Nory Brown LPN Social History Tobacco Use [...] Care Team (Late st Contact Info) Description 05/26/2025 9:00 AM EDT Nutrition [facility] DIABET[facility]/NUTRITION [address] [place] [id number] [place] [address] 06/01/2025 10:00 AM EDT Medication Management [facility] [address] [place] [address] Madhuri Becker, PharmD [address] [place] [address] documented as of this encounter Visit Diagnoses Not on filedocumented in this encounter Care Teams Fender Mechanic Relationship Specialty Start Date End Date Name, MD Royal [address] [place] [address] PCP - General Family Medicine 06/16/19 Madhuri Becker, [employer] [address] [place] [address] Pharmacist Internal Medicine 03/19/23 documented as of this encounter
== END 2025-05-08 13:19 | disposition home or self-care (01) ==
LOC: HO.HHCX 13:18
PROVIDERS: Visit Provider Family Medicine
DX: M25.562 Pain in left knee (principal)
CPT/HCPCS: 73564

== ENCOUNTER → 2025-05-08 13:19 | Outpatient (BNV) | payer OTHER, SELFPAY | PROVIDERS: Visit Provider Radiology Diagnostic Radiology | DX: M17.12 Unilateral primary osteoarthritis, left knee (principal); M25.462 Effusion, left knee; I25.84 Coronary atherosclerosis due to calcified coronary lesion | CPT/HCPCS: 73564 ==

== ENCOUNTER 2025-05-12 13:39 | Outpatient (AMB) | payer OTHER, SELFPAY ==
--- NOTE | 2025-05-12 13:46 | MHC.OFFVIS ---
Vital Signs 05/12/25 13:53 Height 5 ft 4 in Weight 217 lb 4 oz BMI 37.3 BP 141/72 H Blood Pressure Location Lt brachial Position Sitting Pulse 88 Pulse Source Pulse Oximeter Pulse Oximetry (%) 96 Oxygen Delivery Method Room Air Intake Visit Reasons: Chronic bilateral low back pain Intake Note: Pain today 07/29 Reservations Agent Required: Yes Reservations Agent Language: Talent Management Specialist Name: Son in zion Dewey Accompanied by: Other Relationship Allergies No Known Allergies (No Known Allergies*) Allergy (Verified 05/12/25 13:56) HPI Comments Details: The patient is a 80-year-old female presenting with chronic low back pain and left-sided hip pain. The back pain has been persistent for approximately seven months and is described as constant, pulsing, throbbing, stabbing, and aching, with a severity of 9 to 10 out of 10. The pain radiates to the left buttock and side hip, and is exacerbated by prolonged standing, while sitting provides some relief. The patient has a history of significant arthritis as indicated by a back x-ray, which also showed bone spurs and vertebral slippage at L3-L4. She has not engaged in physical therapy previously, as it was not recommended to her, and she manages the pain with Tylenol and gabapentin. The patient avoids NSAIDs due to chronic kidney disease. The patient also has moderate arthritis in the left knee, which contributes to her mobility issues. She uses a cane and walker for ambulation. Additionally, the patient is managing diabetes mellitus with an A1c of 8.8 and is undergoing weight loss with diet and Mounjaro injections. - Onset: Approximately 7 months ago - Quality: Constant, pulsing, throbbing, stabbing, aching - Severity: 9 to 10 out of 10 - Location: Low back, radiating to left buttock and side hip - Exacerbating factors: Prolonged standing or walking, changing positions, movements, weather changes - Relieving factors: Sitting, lying in bed - Affect: Pain impacts mobility and daily activities - Analgesia: Currently using Tylenol and gabapentin - Adverse Effects: Avoids NSAIDs due to chronic kidney disease - Activities of Daily Living: Uses cane and walker for ambulation - Aberrant Drug Related Behaviors: None reported Oswestry Low Back Pain Disability=36 PFSH Medical History Hyponatremia Peripheral neuropathy Sepsis COVID-19 CKD (chronic kidney disease), stage IV Hypothyroidism Arthritis Type 2 diabetes mellitus History of right breast cancer Hyperlipemia HTN (hypertension) Surgical History History of hysteroscopy History of tubal ligation H/O eye surgery H/O right mastectomy Social History Household Members: Family Household Members Other:: son in law is her HOME EXTENSION AGENT Housing: Apartment Do you presently have visiting nurse or other home services: Yes Alcohol intake: never Patient Tobacco Use Status: Former Tobacco user Years Smoked: quit 6 years ago service: No Current occupational status: disabled Sexual orientation: Straight/Heterosexual Gender identity: Female Female Reproductive History Menstrual Age of Menarche: 14 Review of Systems Const Details: - Musculoskeletal: Reports chronic low back pain and left-sided hip pain - Endocrine: Reports diabetes mellitus with elevated A1c at 8.8 - Renal: Reports chronic kidney disease All systems reviewed & are unremarkable except as noted in HPI and below Physical Exam Vital Signs: Last Vital Signs Pulse 88 05/12/25 13:53 BP 141/72 H 05/12/25 13:53 Pulse Ox 96 05/12/25 13:53 Oxygen Delivery Method Room Air 05/12/25 13:53 BMI result Body Mass Index 37.3 General: Appears afebrile. Alert and oriented. Mood and affect appropriate. Follows and participates in conversation appropriately. Respiratory effort is unlabored. No cough. Able to transition from sit to stand unassisted. Uses cane with ambulation. Uses walker at home. Ambulates with bilaterally normal heel strike and toe off. General: Yes no CVA tenderness Back/Spine/Pelvis Other: Limited lumbar ROM due to pain. Lumbar flexion and axial rotations with extension reproduce moderate pain. Demonstrates 5/5 right and 4/5 left due to pain strength of quadriceps bilaterally as well as flexion/dorsiflexion of bilateral feet against resistance. 2+ pedal pulses bilaterally. Straight leg rise with dorsiflexion negative bilaterally. Diminished patellar and achilles reflexes bilaterally. Facet loading test positive bilaterally. Ehsan?s and Stinchfield tests reproduce left knee pain and bilateral lateral hip pain, but not back pain. Mild groin pain with left I/E hip rotations. Valsalva maneuver negative. Back: no CVA tenderness Cervical Spine: cervical ROM normal, cervical muscular tenderness and No Cervical spine tenderness Thoracic/Lumbar Spine: thoracic and lumbar spine normal to inspection, No Thoracic/lumbar spine scar(s), Lasegue's sign negative, straight leg raise negative bilaterally, pain with thoraco-lumbar ROM, paraspinal muscle tenderness, thoraco-lumbar ROM limited, No thoracic spinal tenderness and lumbar spinal tenderness (L3-S1) Extrem General: Yes capillary refill normal, Yes no clubbing, cyanosis or edema and Yes no calf tenderness Left lower extremity: knee (Limited ROM due to pain) Details: normal to inspection, tenderness Location: of the patella, of the medial joint line and of the lateral joint line and crepitus; no swelling, no ecchymosis, no deformity and no unusual warmth Results Reviewed Results Reviewed: XR lumbar spine 4V min 04/27/25 Exam: Five-view lumbar spine TECHNIQUE: AP, bilateral oblique, lateral spot, and lateral views. INDICATION: Chronic low back pain, left sciatica Prior: None FINDINGS: Popcorn calcification in the left hemipelvis could represent a calcified uterine leiomyoma. Other punctate calcifications are most consistent with phleboliths. There is moderate vascular calcification in the abdominal aorta and common iliac arteries. There are 5 nonrib-bearing lumbar segments. There is 10 degrees levoscoliosis. T12-L1: There is mild to moderate loss of disc height and vacuum phenomena. L1-2: There is mild loss of disc height. L2-3: There is mild loss of disc height and mild endplate sclerosis with small anterior osteophytes and mild facet sclerosis. L3-4: There is a grade 1 anterolisthesis. There is endplate sclerosis and degenerative cystic change. There is facet sclerosis and osteophytes. L4-5: There is moderate loss of disc height with vacuum phenomenon, endplate sclerosis, and osteophytes. There is subtle anterolisthesis. There are facet osteophytes and sclerosis. L5-S1: There is minimal loss of disc height. IMPRESSION: Multilevel degenerative disc disease and facet osteoarthritis most advanced at L3-4 and L4-5. Atherosclerotic calcifications. Suspected calcified uterine fibroid. XR KNEE, LEFT 05/08/25 CLINICAL INFORMATION: acute L knee pain and swelling , unable to stand for long periods of time, decreased range of motion COMPARISON: January 03, 2023 TECHNIQUE: Four views of the left knee. FINDINGS: Moderate vascular calcification is present in the femoral artery, popliteal artery, and crural arteries. There is minimal narrowing of the medial joint space. Moderate marginal osteophytes are present on the tibial plateau and medial femoral condyle. Moderate marginal sites are present along the patellofemoral joint. There is a joint effusion. IMPRESSION: Moderate osteoarthritis is most pronounced in the lateral patellofemoral joint. Joint effusion. Moderate vascular calcifications. Assessment & Plan Assessment & Plan (1) Osteoarthritis of left knee: Code(s): M17.12 - Unilateral primary osteoarthritis, left knee Category: Medical (2) Chronic low back pain: Code(s): M54.50 - Low back pain, unspecified; G89.29 - Other chronic pain Category: Medical (3) Lumbosacral spondylosis: Code(s): M47.817 - Spondylosis without myelopathy or radiculopathy, lumbosacral region Category: Medical (4) Lumbar degenerative disc disease: Code(s): M51.369 - Other intervertebral disc degeneration, lumbar region without mention of lumbar back pain or lower extremity pain Category: Medical (5) Lumbar radiculitis: Code(s): M54.16 - Radiculopathy, lumbar region Category: Medical (6) Spondylolisthesis of lumbar region: Code(s): M43.16 - Spondylolisthesis, lumbar region Category: Medical (7) Left knee pain: Code(s): M25.562 - Pain in left knee Category: Medical Plan The plan includes initiating physical therapy to address the chronic low back pain and left knee pain prior consideration for interventional treatments. Lidocaine patches will be provided for pain management, to be applied to the back and knee for up to 12 hours. The patient is advised to continue using Tylenol and gabapentin, heat and ice applications, activity modifications for pain control and to avoid NSAIDs due to chronic kidney disease. Acupuncture is suggested as an additional therapy, with information provided about a local [facility] clinic offering this service. The patient is encouraged to follow up after completing physical therapy to reassess the pain management plan. All questions and concerns have been answered and patient agreed with the plan. Follow up after PT and sooner as needed. Patient was informed and verbally consented to the use of an ambient scribe for clinic note documentation during this visit. Orders: Orders PT Evaluation and Treatment Today G89.29 - Other chronic pain, M17.12 - Unilateral primary osteoarthritis, left knee, M25.562 - Pain in left knee, M43.16 - Spondylolisthesis, lumbar region, M47.817 - Spondylosis without myelopathy or radiculopathy, lumbosacral region, M51.369 - Other intervertebral disc degeneration, lumbar region without mention of lumbar back pain or lower extremity pain, M54.16 - Radiculopathy, lumbar region, M54.50 - Low back pain, unspecified Medications: New lidocaine 5% 2 patches topically; 30 ea 0RF pain 30 days M17.12 - Unilateral primary osteoarthritis, left knee, M25.562 - Pain in left knee, M47.817 - Spondylosis without myelopathy or radiculopathy, lumbosacral region Coding Level of Care Code New Pt Level 4 (89465) Diagnoses Osteoarthritis of left knee M17.12 Chronic low back pain M54.50; G89.29 Lumbosacral spondylosis M47.817 Lumbar degenerative disc disease M51.369 Lumbar radiculitis M54.16 Spondylolisthesis of lumbar region M43.16 Left knee pain M25.562
[2025-05-12 13:53] VITALS: BP 141/72; PULSE 88; O2SAT 96; BMI 37.3
== END 2025-05-12 14:44 | disposition home or self-care (01) ==
LOC: HO.PMC 13:40
PROVIDERS: Visit Provider Nurse Practitioner Family
DX: M17.12 Unilateral primary osteoarthritis, left knee (principal); M54.50 Low back pain, unspecified; G89.29 Other chronic pain; M47.817 Spondylosis without myelopathy or radiculopathy, lumbosacral region; M51.369 Other intervertebral disc degeneration, lumbar region without mention of lumbar back pain or lower extremity pain; M54.16 Radiculopathy, lumbar region; M43.16 Spondylolisthesis, lumbar region; M25.562 Pain in left knee
CPT/HCPCS: 99204

== ENCOUNTER → 2025-05-12 13:39 | Outpatient (BNVA) | payer OTHER, SELFPAY | PROVIDERS: Visit Provider Nurse Practitioner Family | DX: M17.12 Unilateral primary osteoarthritis, left knee (principal); M54.50 Low back pain, unspecified; M47.817 Spondylosis without myelopathy or radiculopathy, lumbosacral region; M51.369 Other intervertebral disc degeneration, lumbar region without mention of lumbar back pain or lower extremity pain; M54.16 Radiculopathy, lumbar region; M43.16 Spondylolisthesis, lumbar region; M25.562 Pain in left knee | CPT/HCPCS: 99202 ==

== ENCOUNTER 2025-05-18 10:03 | Outpatient (AMB) | payer OTHER, SELFPAY ==
[2025-05-18 10:08] VITALS: BP 108/60; PULSE 83; O2SAT 98; BMI 37.5
--- NOTE | 2025-05-18 10:08 | MHC.OFFVIS ---
Vital Signs 05/18/25 10:08 Height 5 ft 4 in Weight 218 lb 4.122 oz BMI 37.5 BP 108/60 Blood Pressure Location Lt brachial Position Sitting Pulse 83 Pulse Source Pulse Oximeter Pulse Oximetry (%) 98 Oxygen Delivery Method Room Air Intake Visit Reasons: WALTER External Relations Director Required: Yes External Relations Director Language: Frame Assembler Services: External Relations Director Present External Relations Director Name: Sophia Kumar LM Allergies No Known Allergies (No Known Allergies*) Allergy (Verified 05/18/25 10:12) HPI HPI WALTER: Details: Luz Elena is pleasant 80 year old female, former minimal smoker, with underlying asthma, h/o right breast cancer s/p chemo, radiation and mastectomy in 1998, CKD IV, DMII and HTN. She is accompanied by her son-in-law. She has been maintained on Breo with excellent control of respiratory symptoms, rarely requiring albuertol MDI. She denies any visits to urgent care or hospitalizations related to respiratory distress since the last visit. Today she presents for routine visit. [facility] Medical History Hyponatremia Peripheral neuropathy Sepsis COVID-19 CKD (chronic kidney disease), stage IV Hypothyroidism Arthritis Type 2 diabetes mellitus History of right breast cancer Hyperlipemia HTN (hypertension) Surgical History History of hysteroscopy History of tubal ligation H/O eye surgery H/O right mastectomy Social History Household Members: Family Household Members Other:: son in law is her [employer] LOC[employer] Housing: Apartment Do you presently have visiting nurse or other home services: Yes Alcohol intake: never Patient Tobacco Use Status: Former Tobacco user Years Smoked: quit 6 years ago service: No Current occupational status: disabled Sexual orientation: Straight/Heterosexual Gender identity: Female Female Reproductive History Menstrual Age of Menarche: 14 Review of Systems Const Denies chills, Denies excessive sweating, Denies fever(s), Denies headache(s) and Denies night sweats Eyes Denies dry eyes, Denies irritation and Denies itchy eyes ENT Reports Normal hearing present and Denies headache(s) Card Denies chest pain, Denies chest pain at rest, Denies chest pain with activity, Denies claudication, Denies leg edema, Denies dyspnea, Denies dyspnea on exertion, Denies orthopnea and Denies paroxysmal nocturnal dyspnea Resp Denies chest congestion, Denies cough, Denies excessive phlegm production, Denies pain on inspiration, Denies pain with cough, Denies dyspnea, Denies dyspnea on exertion, Denies stridor and Denies wheezing Musc Denies myalgias Neuro Reports Normal hearing present and Denies headache(s) Endo Denies excessive sweating García/Lymph Denies lymphadenopathy Aller/Immun Denies itchy eyes, Denies seasonal rhinorrhea and Denies wheezing Physical Exam Vital Signs: Last Vital Signs Pulse 83 05/18/25 10:08 BP 108/60 05/18/25 10:08 Pulse Ox 98 05/18/25 10:08 Oxygen Delivery Method Room Air 05/18/25 10:08 BMI result Body Mass Index 37.5 Const General: cooperative, healthy appearing, comfortable, no acute distress, well developed and alert Nutritional Appearance: obese Orientation/consciousness: patient oriented x3 Limitations: no limitations HEENT Head: Yes normal to inspection, Yes normocephalic and Yes atraumatic Ears: hearing grossly normal bilaterally and external ears normal Eyes General: appearance normal, both eyes and all related structures Eyelids: Yes eyelids normal Sclerae: sclerae normal EOM: EOMs intact bilaterally Neck Neck: Yes normal visual inspection and Yes no lymphadenopathy Lymphatic: no lymphadenopathy noted Chest Chest palpation & inspection: normal inspection of the chest Resp Effort & Inspection: normal respiratory effort, able to speak in complete sentences, no audible wheezes, no cough, no stridor, not tachypneic, no tripod positioning and no use of accessory muscles Auscultation: clear to auscultation bilaterally Cardio Jugular venous distension: no JVD Rate: regular rate Rhythm: regular rhythm Skin Other: warm, dry General skin exam: no rashes or lesions noted Neuro General: patient oriented x3 Cranial nerves: Yes Normal hearing present Cognition (Neuro): normal cognition Gait exam (Neuro): Normal gait present Extrem General: Yes normal to inspection, Yes capillary refill normal, Yes no clubbing, cyanosis or edema and Yes no pedal edema Psych Appearance: grossly normal and well kempt Speech and movement: Normal speech and movement present and Clear speech present Affect: normal affect Attitude: cooperative Thought process: Normal thought process present Thought content: Normal thought content present Insight: Good insight present (Psych) Judgement: Good judgement present (Psych) Assessment & Plan Assessment & Plan (1) Asthma: Code(s): J45.909 - Unspecified asthma, uncomplicated Category: Medical (2) Dyspnea on exertion: Code(s): R06.09 - Other forms of dyspnea Category: Medical (3) Pleural scarring: Code(s): J94.8 - Other specified pleural conditions Category: Medical (4) Paroxysmal nocturnal dyspnea: Code(s): R06.00 - Dyspnea, unspecified Category: Medical Plan At this time Luz Elena reports good control of respiratory symptoms on current regimen, advised to continue Breo and albuterol MDI. She is aware to call if symptoms worsen. Again discussed prior reports of symptoms suggestive of CARMELITA with paroxsymal nocturnal dyspnea, daytime fatigue and nonrestorative sleep. Previously sent for home sleep study, aware she needs to call to reschedule and was given CS number upon check out today All questions were answered and patient is in agreement of plan. Will follow up in 6 months or sooner if needed. Coding Level of Care Code Est Pt Level 3 (17411) Diagnoses Asthma J45.909 Dyspnea on exertion R06.09 Pleural scarring J94.8 Paroxysmal nocturnal dyspnea R06.00
== END 2025-05-18 10:27 | disposition home or self-care (01) ==
LOC: HO.HPS 10:04
PROVIDERS: PCP Internal Medicine Geriatric Medicine; Visit Provider Nurse Practitioner Family
DX: J45.909 Unspecified asthma, uncomplicated (principal); R06.09 Other forms of dyspnea; J94.8 Other specified pleural conditions; R06.00 Dyspnea, unspecified
CPT/HCPCS: 99213

== ENCOUNTER → 2025-05-18 10:03 | Outpatient (BNVA) | payer OTHER, SELFPAY | PROVIDERS: PCP Internal Medicine Geriatric Medicine; Visit Provider Nurse Practitioner Family | DX: I10 Essential (primary) hypertension (principal); J45.909 Unspecified asthma, uncomplicated; R06.09 Other forms of dyspnea; J94.8 Other specified pleural conditions; R06.00 Dyspnea, unspecified; Z85.3 Personal history of malignant neoplasm of breast; Z87.891 Personal history of nicotine dependence; E11.9 Type 2 diabetes mellitus without complications | CPT/HCPCS: 99212 ==

== ENCOUNTER 2025-05-23 14:49 | Outpatient (REF) | payer OTHER, SELFPAY ==
--- NOTE | ~2025-05-23 | MR_ITS ---
CLINICAL HISTORY: acute pain, swelling and decreased ROM L knee, eval for tear MR left knee without gadolinium Comparison: DX/SR - XR KNEE LT 2V - 01/03/23 09:55 EST Findings: Small to moderate simple appearing joint effusion. There are tricompartmental osteoarthritis changes, with area of subchondral marrow edema in the weight-bearing lateral tibial plateau, subchondral cysts deep to the tibial attachment of the ACL. Subchondral edema of the patella is present. Marginal osteophytes involving all 3 joint compartments are present. Subchondral cyst is present in the anterior lateral tibial plateau, near the anterior horn of the lateral meniscus attachment site. No acute fracture deformity seen. There is a bubbly bone lesion within the tibial metaphysis/epiphysis which contains arcs and rings and increased T2 signal measuring 1.4 x 0.9 cm, this has the appearance of an enchondroma. Anterior cruciate ligament fibers appear to be intact, although there is increased signal within the ACL suggesting mucoid degeneration versus partial-thickness tear. The PCL is intact. MCL is intact. The lateral collateral ligament appears torn at the femoral insertion, with a 5 mm cleft between the normal ligament in the osseous cortex, series 12, image 21. There is no significant edema around this ligament suggesting this is a chronic finding. Tear appears high-grade partial versus complete. Patellar retinacula and iliotibial band are intact. There is some increased signal at the patellar retinaculum just inferior to the inferior pole of the patella, which may be magic angle artifact, but could also represent patellar tendonitis. Quadriceps, patellar, popliteus, and flexor tendons are intact. There is some increased signal within the midbody of the medial meniscus suggesting mild degeneration. No discrete tear of the medial meniscus seen. Lateral meniscus is extruded and macerated along the midbody and anterior horn. Portions of the posterior horn remain intact. Multiple areas of partial and full-thickness articular cartilage loss in the lateral joint compartment. Mild surface irregularity of the medial joint compartment articular cartilage. There are large areas of full-thickness articular cartilage loss involving the majority of the lateral facet of the patella. Portions of the lateral trochlea are also missing cartilage. IMPRESSION: 1. Advanced tricompartmental osteoarthritis, most severe in the lateral and patellofemoral joint compartments with areas of full-thickness cartilage loss. Lateral meniscal maceration and extrusion. 2. 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 3. Increased signal within the ACL suggesting mucoid degeneration versus partial-thickness tear. 4. Increased signal in the proximal patellar tendon which could be artifact, but could also represent patellar tendinitis. 5. Small to moderate simple appearing joint effusion. This document has been electronically signed by: Dani Carter MD on 05/23/2025 20:08:38
== END 2025-05-23 14:50 | disposition home or self-care (01) ==
LOC: HO.MRI 14:49
PROVIDERS: PCP Internal Medicine Geriatric Medicine; Visit Provider Family Medicine
DX: M25.562 Pain in left knee (principal)
CPT/HCPCS: 73721

== ENCOUNTER → 2025-05-23 14:59 | Outpatient (BNV) | payer OTHER, SELFPAY | PROVIDERS: PCP Internal Medicine Geriatric Medicine; Visit Provider Radiology Diagnostic Radiology | DX: M25.562 Pain in left knee (principal) | CPT/HCPCS: 73721 ==

== ENCOUNTER 2025-07-06 08:13 | Outpatient (REF) | payer OTHER, SELFPAY ==
--- NOTE | ~2025-07-06 | XR_ITS ---
EXAMINATION: XR KNEE AP STANDING CLINICAL INFORMATION: M25.561 - Pain in right knee COMPARISON: 05/08/2025. TECHNIQUE: AP bilateral standing view of the knees was obtained. FINDINGS: Right Knee: No fracture or dislocation. No malalignment. No bone lesion. Moderate lateral greater than medial joint space narrowing present with marginal osteophytic spurs. There is chondrocalcinosis present in both compartments. There is spurring of the tibial spines. Diffuse vascular calcifications in the soft tissues. Left Knee: No fracture or dislocation. No malalignment. No bone lesion. Moderate lateral greater than medial joint space narrowing present with marginal osteophytic spurs. There is chondrocalcinosis present in both compartments. There is spurring of the tibial spines. Diffuse vascular calcifications in the soft tissues. XR/XR knee standing BI IMPRESSION: 1. Moderate osteoarthrosis bilateral knee joints most significant in the lateral compartments. Electronically signed by: Fernando Contreras MD 07/06/2025 09:33 AM EDT
--- OUTSIDE RECORDS SUMMARY | 2025-07-06 08:29 | XMS_ITS | Encounter Summary ---
Author Organization [facility] Address [address] [address] Phone Care Team Providers Care Coating Mixer Supervisor Name Role Phone Name, Royal BEATTY Primary Care Provider [phone] Encounter Details Date Type Department Care Team (Late st Contact Info) Description 05/30/2023 Documentation Only [facility] [address] [place] [address] Abiel Gross MD [address] [place] [address] [place] [address] Social History Tobacco Use Types [...] Care Team (Late st Contact Info) Description 07/17/2025 11:30 AM EDT Office Visit [facility] [address] [place] [address] 09/14/2025 3:30 PM EDT Office Visit [facility] [address] [place] [address] Irvin Sawyer MD [address] [place] [address] [place] [address] documented as of this encounter Visit Diagnoses Not on filedocumented in this encounter Care Teams Coating Mixer Supervisor Relationship Specialty Start Date End Date Name, MD Royal [address] [place] [phone] PCP - General 09/23/19 documented as of this encounter
--- OUTSIDE RECORDS SUMMARY | 2025-07-06 08:29 | XMS_ITS | Encounter Summary ---
Author Organization [employer] Address [address] [facility] [address] [place] [address] Care Team Providers Care Ware Tester Name Role Phone Name, Royal BEATTY Primary Care Provider [phone] Madhuri Becker PharmD Unavailable [phone] Encounter Details Date Type Department Care Team (Late st Contact Info) Description 11/02/2022 Orders Only [facility] [address] [place] [phone] Nory Brown LPN Social History Tobacco Use [...] Care Team (Late st Contact Info) Description 07/10/2025 10:30 AM EDT Medication Management [facility] [address] [place] [phone] Madhuri Becker, PharmD [address] [place] [address] 07/31/2025 10:00 AM EDT Clinical Support [facility] DIABETES/NUTRITION [address] [place] [phone] [place] [address] 09/01/2025 10:45 AM EDT Office Visit [facility] [address] [place] [address] Name, MD Royal [address] [place] [address] 09/28/2025 10:30 AM EST Office Visit [facility] OPTOMETRY [address] [place], [place] [phone] Aneesh, Meli, OD [address] [place] [address] documented as of this encounter Visit Diagnoses Not on filedocumented in this encounter Care Teams Ware Tester Relationship Specialty Start Date End Date Name, MD Royal [address] [place] [address] [phone] PCP - General Family Medicine 06/16/19 Madhuri Becker PharmD [address] [place] [address] [phone] Pharmacist Internal Medicine 03/19/23 documented as of this encounter
== END 2025-07-06 08:14 | disposition home or self-care (01) ==
LOC: HO.HOSX 08:13
PROVIDERS: Visit Provider Physician Assistant
DX: M25.561 Pain in right knee (principal); M25.562 Pain in left knee; M17.12 Unilateral primary osteoarthritis, left knee
CPT/HCPCS: 73565; 99212

== ENCOUNTER 2025-07-06 08:45 | Outpatient (AMB) | payer OTHER, SELFPAY ==
--- NOTE | 2025-07-06 08:58 | A.OFFVIS_ITS ---
Vital Signs 07/06/25 09:04 Height 5 ft 4 in Weight 201 lb BMI 34.5 Intake Visit Reasons: OV-Lt knee pain Intake Note: Luz Elena is a 80 year old female who presents today as an established patient to evaluate left knee pain. Patient was referred by PCP with MRI results. Per PCP note from 05/08/25 pain started 3 days prior, when she was getting up from a sitting position, she felt a pull in her leg. Complaints of pain with ambulation, swelling, and feeling as if her knee will give out. At today's visit she reports that the pain is radiating down the leg and has tingling in her foot. She reports that she does at home exercises and has tried physical therapy. Patient last seen on 01/03/23 for left knee OA. Slip Seat Coverer Required: Yes Slip Seat Coverer Services: Slip Seat Coverer Present Slip Seat Coverer Name: Teri Caruso [id number] Allergies No Known Allergies (No Known Allergies*) Allergy (Verified 07/06/25 09:04) Medication List - Last Reconciled 07/06/25 by Jason Arzola PA-C albuterol sulfate 90 mcg/actuation 2 puffs inhalation Q4-6H PRN amlodipine 2.5 mg PO DAILY aspirin 81 mg PO DAILY calcium carbonate 600 mg PO cholecalciferol (vitamin D3) 25 mcg PO QAM clotrimazole-betamethasone 1-0.05 % 1 appl topical BID 5 days empagliflozin (Jardiance) mg PO flash glucose sensor (FreeStyle Zoraida 2 Sensor kit) As directed fluticasone furoate-vilanterol 100-25 mcg/dose (Breo Ellipta) 1 inh inhalation DAILY furosemide 40 mg PO BID gabapentin 100 mg PO BEDTIME glucose 16 grams PO insulin glargine 15 units subcut DAILY levothyroxine 25 mcg PO DAILY lidocaine 5% 2 patches topically; 30 days losartan 100 mg PO DAILY metoprolol tartrate 25 mg PO BID omeprazole 20 mg PO DAILY pen needle, diabetic As directed rosuvastatin 10 mg PO BEDTIME tirzepatide (Mounjaro) mg subcut QWEEK HPI HPI OV-Lt knee pain: Details: 80-year-old female follows up for her left knee pain. She states back in April she was moving her leg off a bed when she felt a sharp pull behind the knee. Ever since then she has complained of pain in the anterior and posterior aspect of the knee with some sensation of giving out. She is currently in physical therapy. She can not take NSAIDs due to her kidney disease. She has a diabetic. [facility] Medical History Hyponatremia Peripheral neuropathy Sepsis COVID-19 CKD (chronic kidney disease), stage IV Hypothyroidism Arthritis Type 2 diabetes mellitus History of right breast cancer Hyperlipemia HTN (hypertension) Surgical History History of hysteroscopy History of tubal ligation H/O eye surgery H/O right mastectomy Social History Household Members: Family Household Members Other:: son in law is her [employer] Housing: Apartment Do you presently have visiting nurse or other home services: Yes Alcohol intake: never Patient Tobacco Use Status: Former Tobacco user Years Smoked: quit 6 years ago service: No Current occupational status: disabled Sexual orientation: Straight/Heterosexual Gender identity: Female Female Reproductive History Menstrual Age of Menarche: 14 Review of Systems Const All systems reviewed & are unremarkable except as noted in HPI and below Physical Exam Vital Signs: BMI result Body Mass Index 34.5 Const General: cooperative and no acute distress Orientation/consciousness: patient oriented x3 Resp Effort & Inspection: normal respiratory effort and able to speak in complete sentences Cardio Peripheral pulses: Peripheral pulses 2+ throughout Neuro General: patient oriented x3 Extrem Other: Left knee skin intact, no erythema or joint effusion. Medial and lateral retropatellar tenderness. Full ROM with crepitus. Negative Rani?s. No ligamentous laxity. NVI. Results Reviewed Results Reviewed: Xrays were obtained in the office today and personally reviewed by me of the left knee show tricompartmental oa IMPRESSION: 1. Advanced tricompartmental osteoarthritis, most severe in the lateral and patellofemoral joint compartments with areas of full-thickness cartilage loss. Lateral meniscal maceration and extrusion. 2. 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 3. Increased signal within the ACL suggesting mucoid degeneration versus partial-thickness tear. 4. Increased signal in the proximal patellar tendon which could be artifact, but could also represent patellar tendinitis. 5. Small to moderate simple appearing joint effusion. Assessment & Plan Assessment & Plan (1) Osteoarthritis of left knee: Code(s): M17.12 - Unilateral primary osteoarthritis, left knee Category: Medical Plan: Post options today and because of her diabetes and CKD we decided to continue with conservative management of physical therapy and bracing. She was given a stabilizing knee brace in the office today and will continue physical therapy which she is already participating in. She has a Voltaren cream that she will use for discomfort. I symptoms persist or worsen she can contact our office otherwise follow up as needed. Orders: Orders XR knee standing BI Today M25.561 - Pain in right knee, M25.562 - Pain in left knee Coding Level of Care Code Est Pt Level 3 (99859) Complex EM visit Add On G2211 Diagnoses Osteoarthritis of left knee M17.12
[2025-07-06 09:04] VITALS: BMI 34.5
== END 2025-07-06 09:43 | disposition home or self-care (01) ==
LOC: HO.HOS 08:46
PROVIDERS: Visit Provider Physician Assistant
DX: M17.12 Unilateral primary osteoarthritis, left knee (principal)
CPT/HCPCS: 99213; G2211

== ENCOUNTER → 2025-07-06 08:47 | Outpatient (BNV) | payer OTHER, SELFPAY | PROVIDERS: Visit Provider Radiology Diagnostic Radiology | DX: M17.0 Bilateral primary osteoarthritis of knee (principal) | CPT/HCPCS: 73565 ==

== ENCOUNTER 2025-07-17 09:00 | Outpatient (REF) | payer OTHER, SELFPAY ==
--- OUTSIDE RECORDS SUMMARY | 2025-07-17 09:52 | XMS_ITS | Encounter Summary ---
Author Organization [employer] Address [address] [facility] [address] [place] [address] Care Team Providers Care Plating Inspector Name Role Phone Name, Royal BEATTY Primary Care Provider [phone] Madhuri Becker PharmD Unavailable [phone] Reason for Visit * Reason Comments Med Refill Encounter Details Date Type Department Care Team ([facility] Contact Info) Description 05/31/2023 Refill [facility] [address] [place] [phone] Name, MD Royal [address] [place] [phone] Social History Tobacco Use Types Packs/Day Years [...] Upcoming Encounters Date Type Department Care Team ([facility] Contact Info) Description 07/28/2025 10:00 AM EDT Medication Management [facility] [address] [place] [address] Madhuri Becker PharmD [address] [place] [address] 07/31/2025 10:00 AM EDT Clinical Support [facility] DIABET[facility]/NUTRITION [address] [place] [address] Maixne Stokes, RD [address] [place] [address] 09/01/2025 10:45 AM EDT Office Visit [facility] [address] [place] [address] Yoandy, MD Royal [address] [place] [address] 09/28/2025 10:30 AM EST Office Visit [facility] OPTOMETRY [address] [place] [address] AneeshMeli meyers, OD [address] [place] [address] documented as of this encounter Goals Goal [...] documented as of this encounter Care Teams Plating Inspector Relationship Specialty Start Date End Date NameRoyal MD [address] [place] [phone] PCP - General Family Medicine 06/16/19 Madhuri Becker PharmD [address] [place] [phone] Pharmacist Internal Medicine 03/19/23 documented as of this encounter
--- OUTSIDE RECORDS SUMMARY | 2025-07-17 09:52 | XMS_ITS | Clinical Summary ---
Author Organization [employer] Address [address] [facility] [address] [place] [address] Care Team Providers Care Java Designer Name Role Phone Name, Royal BEATTY Primary Care Provider [phone] Madhuri Becker PharmD Unavailable [phone] Allergies No known active allergies Medications metoprolol tartrate (Lopressor) 25 MG tablet 11/08/20 22 Active cholecalciferol (Vitamin D-3) 25 MCG tablet Take 25 mcg by mouth in the morning. 10/17/20 22 Active furosemide (Lasix) 40 MG tablet 05/01/20 22 Active calcitriol (Rocaltrol) 0.25 MCG capsule Take 0.25 mcg by mouth Once per day. 03/23/20 23 Active albuterol (Ventolin HFA) 108 (90 Base) MCG/ACT inhalerIndicatio ns:Viral URI Inhale 2 puffs every 6 (six) hours if needed for wheezing or shortness of breath. 18 g 1 08/14/20 24 Active calcium carbonate 1500 (600 Ca) MG tabletIndication s:CKD stage 4 due to type 2 diabetes mellitus (CMS/HCC) TAKE 1 TABLET BY MOUTH TWICE DAILY IN THE MORNING AND IN THE EVENING WITH FOOD 180 tablet 3 10/07/20 24 Active Aspirin Low Dose 81 MG EC [...] tablet 5 01/27/20 25 Active Continuous Glucose [employer] Director (FreeStyle Zoraida 3 Baker) device 1 each Once per day. Use [...] of insulin ([facility]) Use to test blood sugar up to 3 times daily, as directed 100 each 02/05/20 25 Active BD Pen Needle Rachele U/F 32G X 4 MM miscIndications: Type 2 diabetes mellitus with stage 4 chronic kidney disease, with long-term current use of insulin ([facility]) USE UP TO THREE TIMES DAILY FOR INSULIN 100 each 03/04/20 25 Active gabapentin (Neurontin) 100 MG capsule TAKE 1 CAPSULE BY MOUTH AT BEDTIME 30 capsule 03/19/20 25 Active Breo Ellipta 100-25 MCG/ACT aerosol powder 03/13/20 25 Active omeprazole (PriLOSEC) [address] capsule TAKE 1 CAPSULE BY MOUTH EVERY MORNING 30-60 MINUTES BEFORE A MEAL 90 capsule 04/10/20 25 Active glucose 4 g chewable tabletIndication s:Type 2 diabetes mellitus with stage 4 chronic kidney disease, with long-term current use of insulin ([facility]) Chew 4 tablets (16 g) if needed for low blood sugar. (<70 mg/dL). Recheck BG after 15 minutes and repeat treatment as needed & as directed. 20 tablet 04/16/20 25 026 Active Tirzepatide (Mounjaro) 15 MG/0.5ML solution auto-injector Inject 15 mg under the skin 1 (one) time per week. 2 mL 04/30/20 25 Active Diclofenac Sodium 1 % gel Apply 2 g topically if needed in the morning, at noon, in the evening, and at bedtime (pain). 150 g 05/08/20 25 Active rosuvastatin (Crestor) 10 MG tabletIndication s:Essential hypertension TAKE 1 TABLET BY MOUTH EVERY MORNING 90 tablet 1 06/05/20 25 Active amLODIPine (Norvasc) 2.5 MG tabletIndication s:Essential hypertension TAKE 1 TABLET BY MOUTH EVERY MORNING 90 tablet 1 06/05/20 25 Active TRUEplus Lancets 33G miscIndications: Type 2 diabetes mellitus with stage 4 chronic kidney disease, with long-term current use of insulin ([facility]) USE DIRECTED TO TEST BLOOD SUGAR THREE TIMES DAILY 100 each 11 06/17/20 25 Active acetaminophen (Tylenol 8 Hour) 650 MG ER tablet TAKE 1 TABLET BY MOUTH EVERY 8 HOURS NEEDED FOR MILD PAIN, DO NOT BREAK, CRUSH, DISSOLVE OR CHEW 60 tablet 1 06/25/20 25 Active Pauline-Dryl 25 MG tabletIndication s:Generalized pruritus TAKE 1 TABLET BY MOUTH AT BEDTIME NEEDED FOR SLEEP 30 tablet 5 07/06/20 25 Active diphenhydrAMINE (Pauline-Dryl) 25 MG tabletIndication s:Generalized pruritus TAKE 1 TABLET BY MOUTH AT BEDTIME NEEDED FOR SLEEP 30 tablet 5 12/26/19 25 025 Discontinued acetaminophen (Tylenol 8 Hour) 650 MG ER tablet Take 1 tablet (650 mg) by mouth every 8 (eight) hours if needed for mild pain. Do not crush, chew, or split. 60 tablet 1 05/08/20 25 025 Discontinued Active Problems Problem Noted Date [...] Encounters Date Type Department Care Team Description 07/10/2025 Telephone [facility] [address] [place] [address] Royal Pitt MD 07/04/2025 Refill [facility] [address] [place] [address] Royal Pitt MD Generalized pruritus 07/01/2025 Telephone [facility] [address] [place] [address] Royal Pitt MD Appointment Confirmation 06/24/2025 Telephone [facility] [address] [place] [address] Maikel Casiano MA july recalls 06/24/2025 Refill [facility] [address] [place] [address] Remedios Marquis DO 06/17/2025 Refill [facility] [address] [place] [address] Royal Pitt MD Type 2 diabetes mellitus with stage 4 chronic kidney disease, with long-term current use of insulin ([facility]) 06/10/2025 Telephone [facility] [address] [place] [address] Remedios Marquis DO Ortho Appointment 06/05/2025 Refill [facility] [address] [place] [address] Royal Pitt MD Essential hypertension 06/05/2025 Refill [facility] [address] [place] [address] Yancy Soriano FNP Essential hypertension 05/26/2025 9:00 AM EDT Nutrition [facility] [address] [place] [address] Type 2 diabetes mellitus with stage 4 chronic kidney disease, with long-term current use of insulin ([facility]) 05/26/2025 Travel 05/08/2025 1:00 PM EDT Office Visit [facility] [address] [place] [phone] Remedios Marquis DO Acute pain of left knee (Primary Dx) 04/30/2025 Travel 04/17/2025 Telephone [facility] [address] [place] [phone] Royal Pitt MD Durable Medical Equipment 04/16/2025 9:15 AM EDT Office Visit [facility] [address] [place] [phone] Royal Pitt MD Type 2 diabetes mellitus with stage 4 chronic kidney disease, with long-term current use of insulin ([facility]) (Primary Dx); Neck mass; Chronic bilateral low back pain with left-sided sciatica 04/16/2025 Travel from Last 3 Months Immunizations Immunization Administration Dates Next Due Hep B, adult [...] Answer Date Recorded Patient Health Questionnaire-9 Score 3 04/16/2025 Patient Health Questionnaire-9 Score 3 04/16/2025 Last PHQ-9: Questionnaire Data Not on file 0 04/16/2025 Housing Stability Answer Date Recorded What is your housing situation today? I have bernie hayes 04/16/[address] you li ve. Do you have problems with any of the following? None of the above 04/16/2025 Food Insecurity Answer Date Recorded Within the past 12 months, y ou worried that your food would run out before you got money to buy more: Never True 04/16/2025 Within the past 12 months,th e food you bought just didn't last and you didn't have enough money to get more: Never True Transportation Answer Date Recorded In the past 12 months, has l ack of transportation kept you from medical appts, meetings, work or from getting things needed for daily living? No 04/16/2025 Utilities Answer Date Recorded In the past 12 months, has t he electric, gas, oil or water company threatened to shut off services in your home? No 04/16/2025 Depression Answer Date Recorded Patient Health Questionnaire-2 Score 0 04/16/2025 Internet Access Answer Date Recorded Internet Access Q1 Yes 04/16/2025 Internet Access Q2 Not on file 04/16/2025 Comments Unknown Sex and Gender Information Value Date Recorded Sex Assigned at Female 09/18/2022 10:33 AM EDT Legal Sex Female 10:33 AM EDT Gender Identity Female 09/18/2022 10:33 AM EDT Sexual Orientation Straight 09/18/2022 10 :33 AM EDT Last Filed Vital Signs Vital Sign Reading Time Taken Comments Blood Pressure 124/75 05/08/2025 12:53 PM EDT Pulse 96 05/08/2025 12:53 PM EDT Temperature 36.5 C (97.7 F) 05/08/2025 12:53 PM EDT Respiratory Rate 18 05/08/2025 12:5 3 PM EDT Oxygen Saturation 98% 05/08/2025 12: 53 PM EDT Inhaled Oxygen Concentration - - Weight 97.9 kg (215 lb 12.8 oz) 05/26/2025 2:52 PM EDT Height 165.1 cm (5' 5 ) 05/26/2025 2:52 PM EDT Body Mass Index 35.91 05/26/2025 2:52 PM EDT Plan of Treatment Upcoming Encounters Date Type Department Care Team (Late st Contact Info) Description 07/28/2025 10:00 AM EDT Medication Management [facility] [address] [place] [address] Madhuri Becker, AlissonD [address] [place] [address] 07/31/2025 10:00 AM EDT Clinical Support [facility] [address] [place] [address] Maxine Stokes, ALTAGRACIA [address] [place] [address] 09/01/2025 10:45 AM EDT Office Visit [facility] [address] [place] [address] Name, MD Royal [address] [place] [address] 09/28/2025 10:30 AM EST Office Visit [facility] [address] [place] [address] AneeshMeli meyers, OD [address] [place] [address] Health Maintenance Due Date Last Done Comments Alcohol/Substance Use Screening 1957 Hepatitis C Screening 1964 Diabetes: Foot Exam 08/31/2024 08/31/2023, 08/31/2023, 08/31/2023, Additional history exists COVID-19 Vaccine ( season) 2025 08/25/2024, 03/30/2023, 02/07/2022, Additional history exists Lipid Panel 05/15/2025 05/15/2024, 07/2023, 06/27/2022 Diabetes: Hemoglobin A1C 06/19/2025 052 025, 12/04/2024, 08/25/2024, Additional history exists Influenza Vaccine (#1) 2025 , 08/31/2023, 11/09/2022, Additional history exists Eye Exam 07/24/2025 07/24/2024, 0 03/2024, 07/24/2024, Additional history exists Mammogram 08/29/2025 08/29/2024, 02/2023, 08/22/2023, Additional history exists Depression Screening 04/16/2026 04/16/2025, 04/16/20 SDOH Screening 04/16/2026 04/16/2025 Tobacco Screening 05/08/2026 05/08/2025 DTaP/Tdap/Td Vaccines (2 - Td or Tdap) 01/18/2030 01/19/2020 Zoster Vaccines Completed 05/28/2023, 0 11/2022, 08/01/2018 Pneumococcal Vaccine: 50+ Years Completed 06/27/2023, 09/17/2019, 08/01/2018, Additional history exists Hepatitis B Vaccines Completed 10/01/2023, 04/27/2023, 03/30/2023 RSV Patients and Patients Aged 60 years or older Completed 07/28/2024 HIB Vaccines Aged Out No longer eligi [...] patient's age to complete this topic Meningococcal B Vaccine Aged Out No l onger eligible based on patient's age to complete [...] Procedure Name Priority Date/Time Associated Diagnosis Comments MR KNEE WO CONTRAST LEFT Urgent 05/23/2025 8:08 PM EDT Acute pain of left knee XR KNEE 4+ VIEWS LEFT Routine 05/08/2025 12:40 PM EDT Acute pain of left knee XR LUMBAR SPINE COMPLETE 4+ VIEWS Routine 04/27/2025 10:30 AM EDT Chronic bilateral low back pain with left-sided sciatica POCT GLUCOSE Routine 04/16/2025 9:17 AM EDT Type 2 diabetes mellitus with stage 4 chronic kidney disease, with long-term current use of insulin (CMS/HCC) POCT GLYCATED HEMOGLOBIN, TOTAL Routine 03/19/2025 10:18 [...] Recently Relevant to Health Maintenance Results * MR Knee w/o Contrast Left (05/23/2025 8:08 PM EDT) Anatomical Region Laterality Modality Magnetic Resonan ce 05/23/2025 8:08 PM EDT Narrative 05/23/2025 8:10 PM EDT [address] [address] Magnetic Resonance Report Signed Patient: Luz Elena Montgomery MR#: [id number] : 1945 Acct:[id number] Age/Sex: 80 / F ADM Date: 05/23/25 Loc: HO.MRI Attending Dr: Remedios Marquis DO Ordering Physician: Remedios Marquis DO Date of Service: 05/23/25 Procedure(s): MR knee LT wo con Accession Number(s): [id number] cc: Remedios Marquis DO; Name,Royal BEATTY CLINICAL HISTORY: acute pain, swelling and decreased ROM L knee, eval for tear MR left knee without gadolinium Comparison: DX/SR - XR KNEE LT 2V - 01/03/23 09:55 EST Findings: Small to moderate simple appearing joint effusion. There are tricompartmental osteoarthritis changes, with area of subchondral marrow edema in the weight-bearing lateral tibial plateau, subchondral cysts deep to the tibial attachment of the ACL. Subchondral edema of the patella is present. Marginal osteophytes involving all 3 joint compartments are present. Subchondral cyst is present in the anterior lateral tibial plateau, near the anterior horn of the lateral meniscus attachment site. No acute fracture deformity seen. There is a bubbly bone lesion within the tibial metaphysis/epiphysis which contains arcs and rings and increased T2 signal measuring 1.4 x 0.9 cm, this has the appearance of an enchondroma. Anterior cruciate ligament fibers appear to be intact, although there is increased signal within the ACL suggesting mucoid degeneration versus partial-thickness tear. The PCL is intact. MCL is intact. The lateral collateral ligament appears torn at the femoral insertion, with a 5 mm cleft between the normal ligament in the osseous cortex, series 12, image 21. There is no significant edema around this ligament suggesting this is a chronic finding. Tear appears high-grade partial versus complete. Patellar retinacula and iliotibial band are intact. There is some increased signal at the patellar retinaculum just inferior to the inferior pole of the patella, which may be magic angle artifact, but could also represent patellar tendonitis. Quadriceps, patellar, popliteus, and flexor tendons are intact. There is some increased signal within the midbody of the medial meniscus suggesting mild degeneration. No discrete tear of the medial meniscus seen. Lateral meniscus is extruded and macerated along the midbody and anterior horn. Portions of the posterior horn remain intact. Multiple areas of partial and full-thickness articular cartilage loss in the lateral joint compartment. Mild surface irregularity of the medial joint compartment articular cartilage. There are large areas of full-thickness articular cartilage loss involving the majority of the lateral facet of the patella. Portions of the lateral trochlea are also missing cartilage. IMPRESSION: 1. Advanced tricompartmental osteoarthritis, most severe in the lateral and patellofemoral joint compartments with areas of full-thickness cartilage loss. Lateral meniscal maceration and extrusion. 2. 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 3. Increased signal within the ACL suggesting mucoid degeneration versus partial-thickness tear. 4. Increased signal in the proximal patellar tendon which could be artifact, but could also represent patellar tendinitis. 5. Small to moderate simple appearing joint effusion. This document has been electronically signed by: Dani Carter MD on 05/23/2025 20:08:38 Dictated By: Dani Carter MD Signed By: <Electronically signed by Dani Carter MD in OV> 05/23/252008 DD/ 07 TD/TT: 05/23/252007 Adult Literacy Instructor: Procedure Note Donotuseinterpreter, Image - 05/23/2025 [place] [address] Magnetic Resonance Report Signed Patient: Luz Elena Montgomery [facility]#: [id number] : 6Acct:[id number] Age/Sex: 80 / FADM Date: 05/23/25 Loc: HO.MRI Attending Dr: Remedios Marquis DO Ordering Physician: Remedios Marquis DO Date of Service: 05/23/25 Procedure(s): MR knee LT wo con Accession Number(s): [id number] cc: Remedios Marquis DO; Name,Royal BEATTY CLINICAL HISTORY: acute pain, swelling and decreased ROM L knee, eval fortear MR left knee without gadolinium Comparison: DX/SR - XR KNEE LT 2V - 01/03/23 09:55 EST Findings: Small to moderate simple appearing joint effusion. There are tricompartmental osteoarthritis changes, with area of subchondral marrow edema in the weight-bearing lateral tibial plateau, subchondral cysts deep to the tibial attachment of the ACL. Subchondral edema of the patella is present. Marginal osteophytes involving all 3 joint compartments are present. Subchondral cyst is present in the anterior lateral tibial plateau, near the anterior horn of the lateral meniscus attachment site. No acute fracture deformity seen. There is a bubbly bone lesion within the tibial metaphysis/epiphysis which contains arcs and rings and increased T2 signal measuring 1.4 x 0.9 cm, this has the appearance of an enchondroma. Anterior cruciate ligament fibers appear to be intact, although there is increased signal within the ACL suggesting mucoid degeneration versus partial-thickness tear. The PCL is intact. MCL is intact. The lateral collateral ligament appears torn at the femoral insertion, with a 5 mm cleft between the normal ligament in the osseous cortex, series 12, image 21. There is no significant edema around this ligament suggesting this is a chronic finding. Tear appears high-grade partial versus complete. Patellar retinacula and iliotibial band are intact. There is some increased signal at the patellar retinaculum just inferior to the inferior pole of the patella, which may be magic angle artifact, but could also represent patellar tendonitis. Quadriceps, patellar, popliteus, and flexor tendons are intact. There is some increased signal within the midbody of the medial meniscus suggesting mild degeneration. No discrete tear of the medial meniscusseen. Lateral meniscus is extruded and macerated along the midbody and anterior horn. Portions of the posterior horn remain intact. Multiple areas of partial and full-thickness articular cartilage loss in the lateral joint compartment. Mild surface irregularity of the medial joint compartment articular cartilage. There are large areas of full-thickness articular cartilage loss involving the majority of the lateral facet of the patella. Portions of the lateral trochlea are also missing cartilage. IMPRESSION: 1. Advanced tricompartmental osteoarthritis, most severe in the lateral and patellofemoral joint compartments with areas of full-thickness cartilage loss. Lateral meniscal maceration and extrusion. 2. 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 3. Increased signal within the ACL suggesting mucoid degeneration versus partial-thickness tear. 4. Increased signal in the proximal patellar tendon which could be artifact, but could also represent patellar tendinitis. 5. Small to moderate simple appearing joint effusion. This document has been electronically signed by: Dani Carter MD on 05/23/2025 20:08:38 Dictated By: Dani Carter MD Signed By: <Electronically signed by Dani Carter MD in OV> 05/23/252008 DD/ 07 TD/TT: 05/23/252007 Adult Literacy Instructor: Remedios Marquis DO IMG MRI PROCEDURES Edited Re sult - Final * XR Knee 4+ Views Left (05/08/2025 12:40 PM EDT) Anatomical Region Laterality Modality Lower Extremities, Knee Left Radiogra phic Imaging 05/08/2025 12:4 0 PM EDT Narrative 05/08/2025 1:43 [place] [address] XRay Report Signed Patient: Luz Elena Montgomery MR#: [id number] : 1945 Acct:[id number] Age/Sex: 80 / F ADM Date: 05/08/25 Loc: HO.HHCX Attending Dr: Remedios Marquis DO Ordering Physician: Remedios Marquis DO Date of Service: 05/08/25 Procedure(s): XR knee LT 4V Accession Number(s): [id number] cc: Remedios Marquis DO EXAMINATION: XR KNEE, LEFT CLINICAL INFORMATION: acute L knee pain and swelling , unable to stand for long periods of time, decreased range of motion COMPARISON: January 03, 2023 TECHNIQUE: Four views of the left knee. FINDINGS: Moderate vascular calcification is present in the femoral artery, popliteal artery, and crural arteries. There is minimal narrowing of the medial joint space. Moderate marginal osteophytes are present on the tibial plateau and medial femoral condyle. Moderate marginal sites are present along the patellofemoral joint. There is a joint effusion. XR/XR knee LT 4V IMPRESSION: Moderate osteoarthritis is most pronounced in the lateral patellofemoral joint. Joint effusion. Moderate vascular calcifications. Electronically signed by: Marcell Dillon MD 05/08/2025 01:40 PM EDT RP Dictated By: Marcell Dillon MD Signed By: <Electronically signed by Marcell Dillon MD in OV> 05/08/25 1340 DD/ 1240 TD/TT: 05/08/25 1320 Adult Literacy Instructor: Procedure Note Donotuseinterpreter, Image - 05/08/[address] [address] XRay Report Signed Patient: Luz Elena Montgomery [facility]#: [id number] : 1945cct:[id number] Age/Sex: 80 / FADM Date: 05/08/25 Loc: HO.HHCX Attending Dr: Remedios Marquis DO Ordering Physician: Remedios Marquis DO Date of Service: 05/08/25 Procedure(s): XR knee LT 4V Accession Number(s): [id number] cc: Remedios Marquis DO EXAMINATION: XR KNEE, LEFT CLINICAL INFORMATION: acute L knee pain and swelling , unable to stand for long periods of time, decreased range of motion COMPARISON: January 03, 2023 TECHNIQUE: Four views of the left knee. FINDINGS: Moderate vascular calcification is present in the femoral artery, popliteal artery, and crural arteries. There is minimal narrowing of the medial joint space. Moderate marginal osteophytes are present on the tibial plateau and medial femoral condyle. Moderate marginal sites are present along the patellofemoral joint. There is a joint effusion. XR/XR knee LT 4V IMPRESSION: Moderate osteoarthritis is most pronounced in the lateral patellofemoral joint. Joint effusion. Moderate vascular calcifications. Electronically signed by: Marcell Dillon MD 05/08/2025 01:40 PM EDT RP Dictated By: Marcell Dillon MD Signed By: <Electronically signed by Marcell Dillon MD in OV> 05/08/25 1340 DD/ 1240 TD/TT: 05/08/25 1320 Adult Literacy Instructor: us Remedios Benitez DO IMG XR PROCEDURES Final Resu lt * XR Lumbar Spine Complete 4+ Views (04/27/2025 10:30 AM EDT) Anatomical Region Laterality Modality Spine, L-spine Radiographic Netta ging 04/27/2025 10:3 0 AM EDT Narrative 04/27/2025 10:59 AM EDT [address] [address] XRay Report Signed Patient: Luz Elena Montgomery MR#: [id number] : 1945 Acct:[id number] Age/Sex: 79 / F ADM Date: 04/27/25 Loc: .HHCX Attending Dr: Royal Pitt MD Ordering Physician: Royal Pitt MD Date of Service: 04/27/25 Procedure(s): XR lumbar spine 4V min Accession Number(s): [id number] cc: Royal Pitt MD Exam: Five-view lumbar spine TECHNIQUE: AP, bilateral oblique, lateral spot, and lateral views. INDICATION: Chronic low back pain, left sciatica Prior: None FINDINGS: Popcorn calcification in the left hemipelvis could represent a calcified uterine leiomyoma. Other punctate calcifications are most consistent with phleboliths. There is moderate vascular calcification in the abdominal aorta and common iliac arteries. There are 5 nonrib-bearing lumbar segments. There is 10 degrees levoscoliosis. T12-L1: There is mild to moderate loss of disc height and vacuum phenomena. L1-2: There is mild loss of disc height. L2-3: There is mild loss of disc height and mild endplate sclerosis with small anterior osteophytes and mild facet sclerosis. L3-4: There is a grade 1 anterolisthesis. There is endplate sclerosis and degenerative cystic change. There is facet sclerosis and osteophytes. L4-5: There is moderate loss of disc height with vacuum phenomenon, endplate sclerosis, and osteophytes. There is subtle anterolisthesis. There are facet osteophytes and sclerosis. L5-S1: There is minimal loss of disc height. XR/XR lumbar spine 4V min IMPRESSION: Multilevel degenerative disc disease and facet osteoarthritis most advanced at L3-4 and L4-5. Atherosclerotic calcifications. Suspected calcified uterine fibroid Electronically signed by: Marcell Dillon MD 04/27/2025 10:57 AM EDT RP Dictated By: Marcell Dillon MD Signed By: <Electronically signed by Marcell Dillon MD in OV> 04/27/25 1057 DD/ 1030 TD/TT: 04/27/25 1045 Adult Literacy Instructor: Procedure Note Donotuseinterpreter, Image - 04/27/2025 [place] [address] XRay Report Signed Patient: Luz Elena Montgomery AMR#: [id number] : 1945cct:[id number] Age/Sex: 79 / FADM Date: 04/27/25 Loc: .HHCX Attending Dr: Royal Pitt MD Ordering Physician: Royal Pitt MD Date of Service: 04/27/25 Procedure(s): XR lumbar spine 4V min Accession Number(s): [id number] cc: Royal Pitt MD Exam: Five-view lumbar spine TECHNIQUE: AP, bilateral oblique, lateral spot, and lateral views. INDICATION: Chronic low back pain, left sciatica Prior: None FINDINGS: Popcorn calcification in the left hemipelvis could represent a calcified uterine leiomyoma. Other punctate calcifications are most consistent with phleboliths. There is moderate vascular calcification in the abdominal aorta and common iliac arteries. There are 5 nonrib-bearing lumbar segments. There is 10 degrees levoscoliosis. T12-L1: There is mild to moderate loss of disc height and vacuum phenomena. L1-2: There is mild loss of disc height. L2-3: There is mild loss of disc height and mild endplate sclerosis with small anterior osteophytes and mild facet sclerosis. L3-4: There is a grade 1 anterolisthesis. There is endplate sclerosis and degenerative cystic change. There is facet sclerosis and osteophytes. L4-5: There is moderate loss of disc height with vacuum phenomenon, endplate sclerosis, and osteophytes. There is subtle anterolisthesis. There are facet osteophytes and sclerosis. L5-S1: There is minimal loss of disc height. XR/XR lumbar spine 4V min IMPRESSION: Multilevel degenerative disc disease and facet osteoarthritis most advanced at L3-4 and L4-5. Atherosclerotic calcifications. Suspected calcified uterine fibroid Electronically signed by: Marcell Dillon MD 04/27/2025 10:57 AM EDT RP Dictated By: Marcell Dillon MD Signed By: <Electronically signed by Marcell Dillon MD in OV> 04/27/25 1057 DD/ 1030 TD/TT: 04/27/25 1045 Adult Literacy Instructor: us Royal Pitt MD IMG XR PROCEDURES Edited Result - Final * (ABNORMAL) POCT Glucose (04/16/2025 9:17 AM EDT) Glucose Blood, POC 242(A) 60 - 200 mg/dL QC Media Lot # [id number] Lot# Expiration Date 82, Blood Capillary blood specimen / Unknown 04/16/2025 9:17 AM EDT us Royal Pitt MD POINT OF CARE TEST ENTER/EDIT OR DERABLES Final Result * (ABNORMAL) POCT HGB A1C (03/19/2025 10:18 AM EDT) Hemoglobin A1C 8.8(A) 4.0 - 6.0 % QC Media Lot # [id number] Blood 03/19/2025 10:1 8 AM EDT us Royal Pitt MD POINT OF CARE TEST ENTER/EDIT OR DERABLES Final Result * BI Mammogram Screening Tomosynthesis Left (08/29/2024 9:45 AM EDT) Anatomical Region Laterality Modality Breast Left Mammography 08/29/2024 9:45 AM EDT Narrative 09/09/2024 4:59 PM EDT [facility] [address] [place] [address] Mammography Report Signed Patient: Luz Elena Montgomery MR#: [id number] : 1945 Acct:[id number] Age/Sex: 79 / F ADM Date: 08/29/24 Loc: HO.MAMMO Attending Dr: Royal Pitt MD Ordering Physician: Royal Pitt MD Results: 1Negative Date of Service: 08/29/24 Follow Up: 1 Year From Orig ina Mammogram Procedure(s): MM tomosynthesis screening LT Accession Number(s): [id number] cc: Royal Pitt MD EXAMINATION: MM SCREENING [...] in OV> 09/09/24 1657 DD/ TD/TT: 08/29/2455 Adult Literacy Instructor: Procedure Note Donotuseinterpreter, Image - 10/22/2024 [facility] [address] [place], [place] [address] Mammography Report Signed Patient: Luz Elena Montgomery AMR#: [id number] : 6Acct:[id number] Age/Sex: 79 / FADM Date: 08/29/24 Loc: HO.MAMMO Attending Dr: Royal Pitt MD Ordering Physician: Royal Pitt MDResults: 1Negative Date of Service: 08/29/24Follow Up: 1 Year From Orig inal Mammogram Procedure(s): MM tomosynthesis screening LT Accession Number(s): [id number] cc: Royal Pitt MD EXAMINATION: MM SCREENING [...] OV> 09/09/24 1657 DD/ TD/TT: 08/29/24 0955 Adult Literacy Instructor: Royal Pitt MD IM BI PROCEDURES Final Result * (ABNORMAL) Lipid Panel, Standard (05/15/2024 9:10 AM EDT) Triglycerides 170(H) <150 mg/dL [facility] Comment:Desirable Triglyceri de: less than 150 mg/dLBorderline High Triglyceride 150-199 mg/dLHigh Triglyceride: 200-499 mg/dLVery High Triglyceride: greater than or equal to 5OO mg/dL Cholesterol 122 <200 mg/dL [facility] Comment:Desirable Cholestero l: less than 200 mg/dLBorderline High Cholesterol: 200-239 mg/dLHigh Cholesterol: greater than 239 mg/dL LDL Cholesterol Calculated 48 <100 mg/dL [facility] Comment:Desirable LDL: less than 100 mg/dLNear Optimal/Above Optimal LDL: 110- 129 mg/dLBorderline High LDL: 130-159 mg/dLHigh LDL: 160-189 mg/dLVery High LDL: greater than or equal to 190 mg/dL HDL Cholesterol 40(L) >40 mg/dL [facility] Comment:Desirable HDL: great er than 40 mg/dL Note: This HDL assay may give artificially low results in patients with liver disease. Blood Venous blood specimen / Unknown 05/15/2024 9:10 AM EDT 05/15/2024 11:17 AM EDT us Royal Name LAB BLOOD ORDERABLES Final Resul t [facility] [address] [place] [address] [phone] from Last 3 Months or Most Recently Relevant to Health Maintenance Insurance [facility] OPTIONS (HMO D-SNP) [facility] [employer] Care Teams Java Designer Relationship Specialty Start Date End Date Name, MD Royal [address] [place] [address] PCP - General Family Medicine 06/16/19 Madhuri Becker PharmD [address] [place], [place] Pharmacist Internal Medicine 03/19/23
--- OUTSIDE RECORDS SUMMARY | 2025-07-17 09:52 | XMS_ITS | Encounter Summary ---
Author Organization [facility] Address [address] [address] Phone Care Team Providers Care Marine Chronometer Assembler Name Role Phone Name, Royal BEATTY Primary Care Provider [phone] Encounter Details Date Type Department Care Team (Late st Contact Info) Description 01/18/2022 Documentation Only [facility] [address] [place] [phone] Abiel Gross MD [address] [place] [address] [place] [phone] Social History Tobacco Use Types Packs/Day Years [...] [facility] - Vascular Access Center [address] [place] [address] [place] [phone] Vineet Jimenez MD [address] [place] [address] [place] [phone] 09/14/2025 3:30 PM EDT Office Visit [facility] [address] [place] [address] Irvin Sawyer MD [address] [place] [address] documented as of this encounter Visit Diagnoses Not on filedocumented in this encounter Care Teams Marine Chronometer Assembler Relationship Specialty Start Date End Date Name, MD Royal [address] [place] [address] [phone] PCP - General 09/23/19 documented as of this encounter
--- OUTSIDE RECORDS SUMMARY | 2025-07-17 09:52 | XMS_ITS | Encounter Summary ---
Author Organization [facility] Address [address] [place] [address] Phone Care Team Providers Care Kosher Butcher Name Role Phone Name, Royal BEATTY Primary Care Provider [phone] Encounter Details Date Type Department Care Team (Late Contact Info) Description 12/19/2022 Documentation Only [facility] [address] [place] [address] Polina Sarmiento [address] [place] [phone] Social History Tobacco Use Types Packs/Day Years [...] Department Care Team (Late Contact Info) Description 07/17/2025 11:30 AM EDT Office Visit [facility] - Vascular Access Center [address] [place] [phone] Vineet Jimenez MD [address] [place] [phone] 09/14/2025 3:30 PM EDT Office Visit [facility] [address] [place] [phone] Irvin Sawyer MD [address] [place] [address] documented as of this encounter Visit Diagnoses Not on filedocumented in this encounter Care Teams Kosher Butcher Relationship Specialty Start Date End Date Name, MD Royal [address] [place] [address] PCP - General 09/23/19 documented as of this encounter
--- OUTSIDE RECORDS SUMMARY | 2025-07-17 09:52 | XMS_ITS | Encounter Summary ---
Author Organization [facility] Address [address] [address] Phone Care Team Providers Care Plant Technician Name Role Phone Name, Royal BEATTY Primary Care Provider [phone] Encounter Details Date Type Department Care Team (Late st Contact Info) Description 05/30/2023 Documentation Only [facility] [address] [place] [phone] Abiel Gross MD [address] [place] [address] [place] [phone] Social History Tobacco Use Types Packs/Day Years [...] Visit [facility] - Vascular Access Center [address] [place] [address] [place] [phone] Vineet Jimenez MD [address] [place] [address] [place] [phone] 09/14/2025 3:30 PM EDT Office Visit [facility] [address] [place] [address] Irvin Sawyer MD [address] [facility] [place] [address] documented as of this encounter Visit Diagnoses Not on filedocumented in this encounter Care Teams Plant Technician Relationship Specialty Start Date End Date Name, MD Royal [address] [place] [address] [phone] PCP - General 09/23/19 documented as of this encounter
--- OUTSIDE RECORDS SUMMARY | 2025-07-17 09:52 | XMS_ITS | Encounter Summary ---
Author Organization [employer] Address [address] [facility] [address] [place] [address] Care Team Providers Care Char Puller Name Role Phone Name, Royal BEATTY Primary Care Provider [phone] Madhuri Becker PharmD Unavailable [phone] Encounter Details Date Type Department Care Team (Late Contact Info) Description 01/29/2023 Orders Only [facility] CHC MED & PEDS [address] [place] [address] Remedios Rider LPN Social History Tobacco Use [...] Department Care Team (Late Contact Info) Description 07/28/2025 10:00 AM EDT Medication Management [facility] MEDICINE [address] [place] [address] Madhuri Becker, PharmD [address] [place] [address] 07/31/2025 10:00 AM EDT Clinical Support [facility] DIABETES/NUTRITION [address] [place] [address] [place] [address] 09/01/2025 10:45 AM EDT Office Visit [facility] MEDICINE [address] [place] [address] Name, MD Royal [address] [place] [address] 09/28/2025 10:30 AM EST Office Visit [facility] OPTOMETRY [address] [place] [address] Aneesh, Meli, OD [address] [place] [address] documented as of this encounter Visit Diagnoses Not on filedocumented in this encounter Additional Health Concerns Assessment Noted Time PHQ-9 Depression Total Score: 0 11/09/20 22 11:52 AM EST documented as of this encounter Care Teams Char Puller Relationship Specialty Start Date End Date Name, MD Royal [address] [place] [address] PCP - General Family Medicine 06/16/19 Madhuri Becker PharmD [address] [place] [address] Pharmacist Internal Medicine 03/19/23 documented as of this encounter
--- OUTSIDE RECORDS SUMMARY | 2025-07-17 09:52 | XMS_ITS | Encounter Summary ---
Author Organization [employer] Address [address] [facility] [address] [place] [address] Care Team Providers Care Web Development Director Name Role Phone Name, Royal BEATTY Primary Care Provider [phone] Madhuri Becker PharmD Unavailable [phone] Reason for Visit * Reason Onset Date Comments New Script 03/16/2023 Encounter Details Date Type Department Care Team ([facility] st Contact Info) Description 03/16/2023 Telephone [facility] MEDICINE [address] [place] [address] Name, MD Royal [address] [place] [address] New Script Social History Tobacco Use Types [...] Bras . Please Fax over script at [phone] If any question please contact [place] at [phone] documented in this encounter Plan of Treatment Upcoming Encounters Date Type Department Care Team (Late st Contact Info) Description 07/28/2025 10:00 AM EDT Medication Management [facility] MEDICINE [address] [place] [address] Madhuri Becker PharmD [address] [place] [address] 07/31/2025 10:00 AM EDT Clinical Support [facility] DIABETES/NUTRITION [address] [place] [address] Maxine Stokes, ALTAGRACIA [address] [place] [address] 09/01/2025 10:45 AM EDT Office Visit [facility] MEDICINE [address] [place] [address] Name, MD Royal [address] [place] [address] 09/28/2025 10:30 AM EST Office Visit [facility] OPTOMETRY [address] [place] [address] Meli Melendrez, OD [address] [place] [address] documented as of this encounter Goals Goal [...] documented as of this encounter Care Teams Web Development Director Relationship Specialty Start Date End Date Name, MD Royal [address] [place] [address] PCP - General Family Medicine 06/16/19 Madhuri Becker PharmD [address] [place] [address] Pharmacist Internal Medicine 03/19/23 documented as of this encounter
--- OUTSIDE RECORDS SUMMARY | 2025-07-17 09:52 | XMS_ITS | Encounter Summary ---
Author Organization [facility], Address [address] [address] Phone Care Team Providers Care Billing Adjudicator Name Role Phone Name, Royal BEATTY Primary Care Provider [phone] Reason for Visit * Reason Comments Med Refill Encounter Details Date Type Department Care Team ([facility] Contact Info) Description 03/25/2024 Refill [facility] [address] [place] [phone] Abiel Gross MD [address] [place] [address] [place] [address] Social History Tobacco Use Types [...] [facility] Contact Info) Description 07/17/2025 11:30 AM EDT Office Visit [facility], - Vascular Access Center [address] [place] [address] [place] [address] Vineet Jimenez MD [address] [place] [address] [place] [phone] 09/14/2025 3:30 PM EDT Office Visit [facility] [address] [facility] [place] [address] Irvin Sawyer MD [address] [facility] [address] documented as of this encounter Visit Diagnoses Not on filedocumented in this encounter Care Teams Billing Adjudicator Relationship Specialty Start Date End Date Name, MD Royal [address] [place] [address] PCP - General 09/23/19 documented as of this encounter
--- OUTSIDE RECORDS SUMMARY | 2025-07-17 09:52 | XMS_ITS | Clinical Summary ---
Author Organization [facility], Address [address] [place] [address] [place] [address] Phone Care Team Providers Care Ship'S Carpenter Name Role Phone Name, Royal BETATY Primary Care Provider Allergies No known active allergies Medications acetaminophen [...] 1 TABLET BY MOUTH ONCE 3 Active cholecalcifero l (VITAMIN D-3) 25 MCG (1000 UT) tablet TAKE 1 TABLET BY MOUTH EVERY MORNING 30 tablet 11 4 Active metoprolol tartrate 25 MG tablet TAKE 1 TABLET BY MOUTH TWICE DAILY IN THE MORNING AND IN THE EVENING 60 tablet 11 4 Active calcitriol (ROCALTROL) 0.25 MCG capsule TAKE 1 CAPSULE BY MOUTH EVERY MORNING 30 capsule 11 5 Active furosemide (LASIX) 40 MG tablet TAKE 1 TABLET BY MOUTH TWICE DAILY IN THE MORNING AND IN THE EVENING 180 tablet 3 5 Active Active Problems Problem Noted Date Diagnosed Date Back pain 04/29/2025 Carcinoma in situ of breast 04/29/2025 Secondary hyperparathyroidism 03/23/2023 Anemia in chronic kidney disease 03/23/2023 Chronic kidney disease, stage 4 (severe) 023 Chronic kidney disease stage 3 11/20/2019 Essential hypertension 11/20/2019 Hyperlipidemia 11/20/2019 Proteinuria 11/20/2019 Type 2 diabetes mellitus without complication Encounters Date Type Department Care Team Description 07/15/2025 Telephone [facility] Vascular Access [address] [place] [address] 06/18/2025 10:00 AM EDT Office Visit [facility] Vascular Access [address] [place] [address] Gus Umanzor MD Stage 5 chronic kidney disease (HCC) (Primary Dx) 06/02/2025 Telephone [facility] Vascular [address] [place] [address] Juana Infante 06/01/2025 1:00 PM EDT Procedure visit [facility] Vascular [address] [place] [address] Edward Santos MD Chronic kidney disease, stage 4 (severe) (HCC) (Primary Dx) 06/01/2025 Documentation Only [facility] [address] [place] [address] Dulce Maria Painting 05/29/2025 Telephone [facility] Vascular [address] [place] [address] 05/27/2025 2:30 PM EDT Office Visit [facility] [address] [place] [address] Abiel Gross MD Chronic kidney disease, stage 4 (severe) (HCC) (Primary Dx); Persistent proteinuria; Type 2 diabetes mellitus with diabetic chronic kidney disease (HCC); Anemia in chronic kidney disease; Secondary hyperparathyroidism (HCC); Hypertension 05/18/2025 Orders Only [facility] [address] [place] [address] Elidia Cruz MA Chronic kidney disease, stage 4 (severe) (HCC) (Primary Dx); Secondary hyperparathyroidism (HCC); Anemia in chronic kidney disease 04/28/2025 1:00 PM EDT Office Visit [facility] Vascular Access [address] [place] [phone] Edward Santos MD Chronic kidney disease, stage 4 (severe) (HCC) (Primary Dx) 04/27/2025 Telephone [facility] Vascular Access [address] [place] [phone] 04/23/2025 Telephone [facility] [address] [place] [address] Giovanna Sheldon from Last 3 Months Immunizations Immunization Administration [...] Sign Reading Time Taken Comments Blood Pressure 118/73 06/01/2025 12:08 PM EDT Pulse 85 06/01/2025 12:08 PM EDT Temperature 36.3 C (97.3 F) 06/01/2025 12:08 PM EDT Respiratory Rate 14 06/01/2025 12:08 PM EDT Oxygen Saturation 98% 06/01/2025 12:08 PM EDT Inhaled Oxygen Concentration - - Weight 98.9 kg (218 lb) 06/01/2025 12:08 PM EDT Height 165.1 cm (5' 5 ) 06/01/2025 12:08 PM EDT Body Mass Index 36.28 06/01/2025 12:08 PM EDT Plan of Treatment Upcoming Encounters Date Type Department Care Team (Late st Contact Info) Description 07/17/2025 11:30 AM EDT Office Visit [facility] Vascular Access Center [address] [place] [address] [place] [phone] Vineet Jimenez MD [address] [place] [address] [place] [phone] 09/14/2025 3:30 PM EDT Office Visit [facility] [address] [place] [phone] Irvin Sawyer MD [address] [place] [address] [place] [phone] Health Maintenance Due Date Last Done Comments Diabetes: Ophthalmology Exam 11/20/2019 Diabetes: Pedal Pulse Checked 11/20/2019 Diabetes: Sensory Foot Exam 11/20/2019 Diabetes: Visual Foot Exam 11/20/2019 Diabetes: Hemoglobin A1C 06/19/2025 025, 12/04/2024, 08/25/2024, Additional history exists Influenza Vaccine (#1) 2025 4, 11/09/2022, 09/17/2019, Additional history exists Pneumococcal Vaccine: 50+ Years Completed 06/27/2023, 09/17/2019, 08/01/2018, Additional history exists Pneumococcal Vaccine: Peds (0 to 5 Years) and At-Risk Patients (6 to 49 Years) Discontinued 06/27/2023, 09/17/2019, 08/01/2018, Additional history exists Hepatitis B Vaccine Aged Out 10/01/2023, 04/27/2023, 03/30/2023 No longer eligible based on patient's age to complete this topic Procedures Procedure Name Priority Date/Time Associated Diagnosis Comments HEMOGLOBIN A1C Routine 05/16/2021 4:21 PM EDT Other proteinuria Chronic kidney disease, stage 4 (severe) (HCC) Type 2 diabetes mellitus without complication (HCC) from Last 3 Months or Most Recently Relevant to Health Maintenance Results * (ABNORMAL) Hemoglobin A1c (05/16/2021 4:21 PM EDT) Hemoglobin A1C 9.2(H) (4.0-5.6) % [facility] Comment: MONITORING: In known diabetic patients, hemoglobin A1c targets should be discussed with health care provider. DIAGNOSTIC USE: The [place] Diabetes Association (ADA) and the World Health [...] Supplement 1 Testing performed or reported by [facility], a Service of [facility], [address] [place] [id number] Geetha Meléndez MD, Meat Clerk Blood specimen (specimen) Venous blood / Unknown 05/16/2021 4:21 PM EDT 05/16/2021 4:26 PM EDT us Abiel Gross MD LAB BLOOD ORDERABLES Final Result [facility] from Last 3 Months or Most Recently Relevant to Health Maintenance Insurance [facility] Dual SNP ([id number]) [place] [id number] Care Teams Ship'S Carpenter Relationship Specialty Start Date End Date Name, MD Royal [address] [place] [address] PCP - General 09/23/19
--- OUTSIDE RECORDS SUMMARY | 2025-07-17 09:52 | XMS_ITS | Encounter Summary ---
Author Organization [facility], Address [address] [address] Phone Care Team Providers Care Gold Charmer Name Role Phone Name, Royal BEATTY Primary Care Provider [phone] Reason for Visit * Reason Comments Med Refill Encounter Details Date Type Department Care Team ([facility] Contact Info) Description 11/06/2022 Refill [facility] [address] [place] [phone] Abiel Gross MD [address] [place] [address] [place] [address] Social History Tobacco Use Types [...] Upcoming Encounters Date Type Department Care Team ([facility] Contact Info) Description 07/17/2025 11:30 AM EDT Office Visit [facility], - Vascular Access Center [address] [place] [address] [place] [address] Vineet Jimenez MD [address] [place] [address] [place] [phone] 09/14/2025 3:30 PM EDT Office Visit [facility] [address] [facility] [place] [address] Irvin Sawyer MD [address] [facility] [place] [address] documented as of this encounter Visit Diagnoses Not on filedocumented in this encounter Care Teams Gold Charmer Relationship Specialty Start Date End Date Name, MD Royal [address] [place] [address] PCP - General 09/23/19 documented as of this encounter
--- OUTSIDE RECORDS SUMMARY | 2025-07-17 09:52 | XMS_ITS | Encounter Summary ---
Author Organization [facility] [place], Address [address] [place] [address] Phone Care Team Providers Care New Car Salesperson Name Role Phone Name, Royal BEATTY Primary Care Provider [phone] Encounter Details Date Type Department Care Team (Late Contact Info) Description 07/15/2025 Telephone [facility] Vascular Access [address] [place] [address] [place] [phone] Social History Tobacco Use Types Packs/Day Years [...] on file documented as of this encounter Miscellaneous Notes * Telephone Encounter - Jennifer Lane - 07/15/2025 11:19 AM EDT OFFICE VISIT REMINDER COMMUNICATION Left message on answering machine to confirm office appointment scheduled on 07/17/25. documented in this encounter Plan of Treatment Upcoming Encounters Date Type Department Care Team (Late Contact Info) Description 07/17/2025 11:30 AM EDT Office Visit [facility] Vascular Access [place] [address] [place] [address] [place] [phone] Vineet Jimenez MD [address] [place] [phone] 09/14/2025 3:30 PM EDT Office Visit [facility] [place], [address] [place] [address] Irvin Sawyer MD [address] [place] [address] documented as of this encounter Visit Diagnoses Not on filedocumented in this encounter Care Teams New Car Salesperson Relationship Specialty Start Date End Date Name, MD Royal [address] [place] [address] [id number] PCP - General 09/23/19 documented as of this encounter
--- OUTSIDE RECORDS SUMMARY | 2025-07-17 09:52 | XMS_ITS | Encounter Summary ---
Author Organization [facility] Address [address] [place] [address] Phone Care Team Providers Care Pattern Carrier Name Role Phone Name, Royal BEATTY Primary Care Provider [phone] Encounter Details Date Type Department Care Team (Late Contact Info) Description 03/03/2025 Documentation Only [facility] [address] [place] [phone] Elidia Cruz [place] [address] [place] [phone] Social History Tobacco Use Types Packs/Day Years [...] Visit [facility] - Vascular Access Center [address] [place] [phone] Vineet Jimenez MD [address] [place] [place] [phone] 09/14/2025 3:30 PM EDT Office Visit [facility] [address] [place] [address] Irvin Sawyer MD [address] [place] [address] documented as of this encounter Visit Diagnoses Not on filedocumented in this encounter Care Teams Pattern Carrier Relationship Specialty Start Date End Date Name, MD Royal [address] [place] [address] PCP - General 09/23/19 documented as of this encounter
--- OUTSIDE RECORDS SUMMARY | 2025-07-17 09:52 | XMS_ITS | Encounter Summary ---
Author Organization [email or web address] Address [address] [facility] 7t [place] [address] Care Team Providers Care Air Cargo Ground Crew Supervisor Name Role Phone Name, Royal BEATTY Primary Care Provider [phone] Madhuri Becker PharmD Unavailable [phone] Reason for Visit * Reason Comments Med Refill Encounter Details Date Type Department Care Team ([facility] Contact Info) Description 04/25/2024 Refill [facility] MEDICINE [address] [place] [address] Madhuri Becker, PharmD [address] [place] [address] Type 2 diabetes mellitus with stage 4 chronic kidney disease, with long-term current use of insulin ([facility]) Social History Tobacco Use Types [...] 10:00 AM EDT Medication Management [facility] MEDICINE [address] [place] [address] Madhuri Becker, PharmD [address] [place] [address] 07/31/2025 10:00 AM EDT Clinical Support [facility] DIABETES/NUTRITION [address] [place] [address] Maxine Stokes, ALTAGRACIA [address] [place] [address] 09/01/2025 10:45 AM EDT Office Visit [facility] MEDICINE [address] [place] [address] Name, MD Royal [address] [place] [address] 09/28/2025 10:30 AM EST Office Visit [facility] OPTOMETRY [address] [place] [address] Meli Melendrez, OD [address] [place] [address] documented as of this encounter Goals Goal Patient Goal Type Associated Problems Recent Progress Patient-Stated? Author Hemoglobin A1c < 8 Result Component 8.8( 5 10:18 AM EDT) No Madhuri Becker [...] disease, with long-term current use of insulin ([facility]) documented in this encounter Additional Health Concerns Assessment Noted Time PHQ-9 Depression Total Score: 0 03/11/20 24 2:52 PM EDT documented as of this encounter Care Teams Air Cargo Ground Crew Supervisor Relationship Specialty Start Date End Date Name, MD Royal [address] [place] [address] PCP - General Family Medicine 06/16/19 Madhuir Becker PharmD [address] [place] [address] Pharmacist Internal Medicine 03/19/23 documented as of this encounter
--- OUTSIDE RECORDS SUMMARY | 2025-07-17 09:52 | XMS_ITS | Encounter Summary ---
Author Organization [employer] Address [address] [facility] 7t [place] [address] Care Team Providers Care Abrasive Grader Name Role Phone Name, Royal BEATTY Primary Care Provider [phone] Madhuri Becker PharmD Unavailable [phone] Reason for Visit * Reason Comments Med Refill Encounter Details Date Type Department Care Team ([facility] Contact Info) Description 02/28/[address] [facility] MEDICINE [address] [place] [address] Name, MD Royal [address] [place] [address] Social History Tobacco Use Types Packs/Day Years [...] Description 07/28/2025 10:00 AM EDT Medication Management [facility] MEDICINE [address] [place] [address] Madhuri Becker, PharmD [address] [place] [address] 07/31/2025 10:00 AM EDT Clinical Support [facility] DIABETES/NUTRITION [address] [place] [address] Maxine Stokes, ALTAGRACIA 230 [place] [address] 09/01/2025 10:45 AM EDT Office Visit [facility] MEDICINE [address] [place] [address] Name, MD Royal [address] [place] [address] 09/28/2025 10:30 AM EST Office Visit [facility] OPTOMETRY [address] [place] [address] Meli Melendrez, OD 230 [place] [address] documented as of this encounter Goals Goal [...] documented as of this encounter Care Teams Abrasive Grader Relationship Specialty Start Date End Date Name, MD Royal [address] [place] [address] PCP - General Family Medicine 06/16/19 Madhuri Becker PharmD [address] [place] [address] Pharmacist Internal Medicine 03/19/23 documented as of this encounter
--- OUTSIDE RECORDS SUMMARY | 2025-07-17 09:52 | XMS_ITS | Encounter Summary ---
Author Organization [employer] Address [address] [facility] 7t [place] [address] Care Team Providers Care County Surveyor Name Role Phone Name, Royal BEATTY Primary Care Provider Madhuri Becker PharmD Unavailable [phone] Reason for Visit * Reason Comments Med Refill Encounter Details Date Type Department Care Team ([facility] Contact Info) Description 05/02/2024 Refill [facility] 230 [place] [address] Zechariah Bernabe MD [address] [place] [address] Social History Tobacco Use Types Packs/Day Years [...] 10:00 AM EDT Medication Management [facility] MEDICINE [address] [place] [address] Madhuri Becker PharmD 230 [place] [address] 07/31/2025 10:00 AM EDT Clinical Support [facility] DIABETES/NUTRITION [address] [place] [address] [place] [address] 09/01/2025 10:45 AM EDT Office Visit [facility] MEDICINE [address] [place] [address] Name, MD Royal 230 [place] [address] 09/28/2025 10:30 AM EST Office Visit [facility] OPTOMETRY [address] [place] [address] Meli Melenderz OD 230 [place] [address] documented as of this encounter Goals Goal [...] documented as of this encounter Care Teams County Surveyor Relationship Specialty Start Date End Date Name, MD Royal [address] [place] [address] PCP - General Family Medicine 06/16/19 Madhuri Becker PharmD [address] [place] [address] Pharmacist Internal Medicine 03/19/23 documented as of this encounter
--- OUTSIDE RECORDS SUMMARY | 2025-07-17 09:52 | XMS_ITS | Encounter Summary ---
Author Organization [facility] Address [address] [place] [address] Phone Care Team Providers Care Hoseman Name Role Phone Name, Royal BEATTY Primary Care Provider [phone] Encounter Details Date Type Department Care Team (Late Contact Info) Description 04/09/2023 Documentation Only [facility] [address] [place] [phone] Matteo Jessica [place] [address] [place] [phone] Social History Tobacco Use Types Packs/Day Years [...] Services Of [facility] Vascular Access Center [address] [place] [address] Vineet Jimenez MD [address] [place] [phone] 09/14/2025 3:30 PM EDT Office Visit [facility] [address] [place] [address] Irvin Sawyer MD [address] [place] [address] documented as of this encounter Visit Diagnoses Not on filedocumented in this encounter Care Teams Hoseman Relationship Specialty Start Date End Date Name, MD Royal [address] [place] [address] PCP - General 09/23/19 documented as of this encounter
--- OUTSIDE RECORDS SUMMARY | 2025-07-17 09:52 | XMS_ITS | Encounter Summary ---
Author Organization [employer] Address 75 [facility] 7t [place] [address] Care Team Providers Care Associate Software Engineer Name Role Phone Name, Royal BEATTY Primary Care Provider [phone] Madhuri Becker PharmD Unavailable [phone] Reason for Visit * Reason Onset Date Comments Appointment Request 01/01/2025 Encounter Details Date Type Department Care Team ([facility] st Contact Info) Description 01/01/2025 Telephone [facility] MEDICINE [address] [place] [address] Name, MD Royal [address] [place] [address] Appointment Request Social History Tobacco Use Types [...] 01/01/2025 8:11 AM EST 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 Contact pt PROTOTYPE MACHINIST at [phone] documented in this encounter Plan of Treatment Upcoming Encounters Date Type Department Care Team ([facility] st Contact Info) Description 07/28/2025 10:00 AM EDT Medication Management [facility] MEDICINE [address] [place] [address] Madhuri Becker, PharmD [address] [place] [address] 07/31/2025 10:00 AM EDT Clinical Support [facility] DIABETES/NUTRITION [address] [place] [address] Maxine Stokes, ALTAGRACIA [address] [place] [address] 09/01/2025 10:45 AM EDT Office Visit [facility] MEDICINE [address] [place] [address] Name, MD Royal [address] [place] [address] 09/28/2025 10:30 AM EST Office Visit [facility] OPTOMETRY [address] [place], [place] [phone] Meli Melendrez, OD 230 [place] [address] documented as of this encounter Goals Goal Patient Goal Type Associated Problems Recent Progress Patient-Stated? Author Hemoglobin A1c < 8 Result Component 8.8( 10:18 AM EDT) No Madhuri Becker, PharmTy Record your blood [...] documented as of this encounter Care Teams Associate Software Engineer Relationship Specialty Start Date End Date Name, MD Royal [address] [place], [place] [phone] PCP - General Family Medicine 06/16/19 Madhuri Becker, PharmD [address] [place], [place] [phone] Pharmacist Internal Medicine 03/19/23 documented as of this encounter
--- OUTSIDE RECORDS SUMMARY | 2025-07-17 09:52 | XMS_ITS | Encounter Summary ---
Author Organization [employer] Address 75 [facility] 7t [place] [address] Care Team Providers Care Cone Machine Operator Name Role Phone Name, Royal BEATTY Primary Care Provider [phone] Madhuri Becker PharmD Unavailable [phone] Reason for Visit * Reason Onset Date Comments Appointment Request 11/03/2024 Encounter Details Date Type Department Care Team ([facility] Contact Info) Description 11/03/2024 Telephone [facility] MEDICINE 230 [place] [address] Name, MD Royal 230 [place] [address] Appointment Request Social History Tobacco Use Types [...] 9:22 AM EST Tc from [facility]) requesting to reschedule today's CDTM visit. Please contact [facility] at [phone]. (Luxembourgish Speaker) documented in this encounter Plan of Treatment Upcoming Encounters Date Type Department Care Team ([facility] st Contact Info) Description 07/28/2025 10:00 AM EDT Medication Management [facility] MEDICINE [address] [place] [address] Madhuri Becker, PharmD 230 [place] [address] 07/31/2025 10:00 AM EDT Clinical Support [facility] DIABETES/NUTRITION [address] [place] [address] [place] [address] 09/01/2025 10:45 AM EDT Office Visit [facility] MEDICINE [address] [place] [address] Name, MD Royal 230 [place] [address] 09/28/2025 10:30 AM EST Office Visit [facility] OPTOMETRY [address] [place] [address] Aneesh, Meli, OD 230 [place] [address] documented as of this encounter Goals Goal Patient Goal Type Associated Problems Recent Progress Patient-Stated? Author Hemoglobin A1c < 8 Result Component 8.8( 10:18 AM EDT) No Madhuri Beckre PharmD Record your blood sugar as directed [...] documented as of this encounter Care Teams Cone Machine Operator Relationship Specialty Start Date End Date Name, MD Royal [address] [place], [place] [phone] PCP - General Family Medicine 06/16/19 Madhuri Becker PharmD [address] [place] [address] [phone] Pharmacist Internal Medicine 03/19/23 documented as of this encounter
--- OUTSIDE RECORDS SUMMARY | 2025-07-17 09:52 | XMS_ITS | Encounter Summary ---
Author Organization [facility] Address [address] [place] [address] Phone Care Team Providers Care Seo Team Lead Name Role Phone Name, Royal BEATTY Primary Care Provider [phone] Encounter Details Date Type Department Care Team (Late Contact Info) Description 05/15/2024 Documentation Only [facility] [address] [place] [phone] Elidia Cruz [place] [address] [place] [phone] Social History Tobacco Use Types Packs/Day Years [...] Visit [facility] - Vascular Access Center [address] [place] [address] Vineet Jimenez MD [address] [place] [address] 09/14/2025 3:30 PM EDT Office Visit [facility] [address] [place] [address] Irvin Sawyer MD [address] [place] [address] documented as of this encounter Visit Diagnoses Not on filedocumented in this encounter Care Teams Seo Team Lead Relationship Specialty Start Date End Date Name, MD Royal [address] [place] [address] PCP - General 09/23/19 documented as of this encounter
--- OUTSIDE RECORDS SUMMARY | 2025-07-17 09:52 | XMS_ITS | Encounter Summary ---
Author Organization [facility] Address [address] [place] [address] Phone Care Team Providers Care Hosted Services Analyst Name Role Phone Name, Royal BEATTY Primary Care Provider [phone] Encounter Details Date Type Department Care Team (Late Contact Info) Description 05/30/2024 Documentation Only [facility] [address] [place] [phone] Elidia Cruz [place] [address] [place] [phone] Social History Tobacco Use Types Packs/Day Years [...] Visit [facility] - Vascular Access Center [address] [address] [place] [address] Vineet Jimenez MD [address] [facility] [address] [place] [address] 09/14/2025 3:30 PM EDT Office Visit [facility] [address] [place] [address] Irvin Sawyer MD [address] [facility] [place] [address] documented as of this encounter Visit Diagnoses Not on filedocumented in this encounter Care Teams Hosted Services Analyst Relationship Specialty Start Date End Date Name, MD Royal [address] [place] [address] PCP - General 09/23/19 documented as of this encounter
--- OUTSIDE RECORDS SUMMARY | 2025-07-17 09:52 | XMS_ITS | Encounter Summary ---
Author Organization [employer] Address 75 [facility] 7t [place] [address] Care Team Providers Care House Servant Name Role Phone Name, Royal BEATTY Primary Care Provider [phone] Madhuri Becker PharmD Unavailable [phone] Reason for Visit * Reason Comments Med Refill Encounter Details Date Type Department Care Team ([facility] Contact Info) Description 05/19/2024 Refill [facility] MEDICINE 230 [place] [address] Maryan Vasquez MD 230 [place] [address] Social History Tobacco Use Types Packs/Day Years [...] Description 07/28/2025 10:00 AM EDT Medication Management [facility] MEDICINE 230 [place] [address] Madhuri Becker PharmD 230 [place] [address] 07/31/2025 10:00 AM EDT Clinical Support [facility] DIABETES/NUTRITION [address] [place] [address] [place] [address] 09/01/2025 10:45 AM EDT Office Visit [facility] MEDICINE [address] [place] [address] Name, MD Royal [address] [place] [address] 09/28/2025 10:30 AM EST Office Visit [facility] OPTOMETRY [address] [place] [address] Meli Melendrez OD 230 [place] [address] documented as of this encounter Goals Goal [...] documented as of this encounter Care Teams House Servant Relationship Specialty Start Date End Date Name, MD Royal [address] [place] [address] PCP - General Family Medicine 06/16/19 Madhuri Becker PharmD 230 [place] [address] Pharmacist Internal Medicine 03/19/23 documented as of this encounter
--- OUTSIDE RECORDS SUMMARY | 2025-07-17 09:52 | XMS_ITS | Encounter Summary ---
Author Organization [employer] Address 75 [facility] 7t [place] [address] Care Team Providers Care Head Swamper Name Role Phone Name, Royal BEATTY Primary Care Provider [phone] Madhuri Becker PharmD Unavailable [phone] Reason for Visit * Reason Onset Date Comments Created In Error 07/30/2024 Encounter Details Date Type Department Care Team ([facility] Contact Info) Description 07/30/2024 Telephone [facility] MEDICINE [address] [place] [address] Name, MD Royal [address] [place] [address] Created In Error Social History Tobacco Use [...] Description 07/28/2025 10:00 AM EDT Medication Management [facility] MEDICINE [address] [place] [address] Madhuri Becker, PharmD 230 [place] [address] 07/31/2025 10:00 AM EDT Clinical Support [facility] DIABETES/NUTRITION [address] [place] [address] Maxine Stokes, ALTAGRACIA 230 [place] [address] 09/01/2025 10:45 AM EDT Office Visit [facility] MEDICINE [address] [place] [address] Name, MD Royal 230 [place] [address] 09/28/2025 10:30 AM EST Office Visit [facility] OPTOMETRY [address] [place] [address] Meli Melendrez, OD 230 [place] [address] documented as of this encounter Goals Goal [...] documented as of this encounter Care Teams Head Swamper Relationship Specialty Start Date End Date Name, MD Royal [address] [place] [address] PCP - General Family Medicine 06/16/19 Madhuri Becker PharmD [address] [place] [address] Pharmacist Internal Medicine 03/19/23 documented as of this encounter
--- OUTSIDE RECORDS SUMMARY | 2025-07-17 09:52 | XMS_ITS | Encounter Summary ---
Author Organization [facility] [place], Address [address] [place] [address] Phone Care Team Providers Care Outpatient Services Director Name Role Phone Name, Royal BEATTY Primary Care Provider [phone] Encounter Details Date Type Department Care Team (Late st Contact Info) Description 06/01/2025 Documentation Only [facility] Vascular Access [address] [place] [phone] Dulce Maria Painting [address] [place] [address] [place] [phone] Social History Tobacco Use Types Packs/Day Years [...] Visit [facility] Vascular Access [address] [place] [address] Vineet Jimenez MD [address] [place] [address] [place] [phone] 09/14/2025 3:30 PM EDT Office Visit [facility] Of [address] [place] [address] Irvin Sawyer MD [address] [facility] [place] [address] documented as of this encounter Visit Diagnoses Not on filedocumented in this encounter Care Teams Outpatient Services Director Relationship Specialty Start Date End Date Name, MD Royal [address] [place] [address] [phone] PCP - General 09/23/19 documented as of this encounter
--- OUTSIDE RECORDS SUMMARY | 2025-07-17 09:52 | XMS_ITS | Encounter Summary ---
Author Organization [facility] [place], Address [address] [address] Phone Care Team Providers Care Hat Ironer Name Role Phone Name, Royal BEATTY Primary Care Provider [phone] Reason for Visit * Reason Comments Med Refill Encounter Details Date Type Department Care Team ([facility] Contact Info) Description 03/24/2024 Refill [facility] [address] [place] [phone] Abiel Gross MD [address] [place] [address] [place] [address] Social History Tobacco Use [...] Upcoming Encounters Date Type Department Care Team ([facility] Contact Info) Description 07/17/2025 11:30 AM EDT Office Visit [facility] - Vascular Access Center [address] [place] [place] [address] Vineet Jimenez MD [address] [place] [address] [place] [address] 09/14/2025 3:30 PM EDT Office Visit [facility] [place], [address] [place] [address] Irvin Sawyer MD [address] [place] [address] documented as of this encounter Visit Diagnoses Not on filedocumented in this encounter Care Teams Hat Ironer Relationship Specialty Start Date End Date Name, MD Royal [address] [place] [address] PCP - General 09/23/19 documented as of this encounter
--- OUTSIDE RECORDS SUMMARY | 2025-07-17 09:52 | XMS_ITS | Encounter Summary ---
Author Organization [employer] Address [address] [place] [address] Care Team Providers Care Career Services Coordinator Name Role Phone Name, Royal BEATTY Primary Care Provider [phone] Madhuri Becker PharmD Unavailable [phone] Encounter Details Date Type Department Care Team (Late st Contact Info) Description 11/02/2022 Orders Only [facility] MOBILE [facility] [address] [place] [phone] Nory Brown LPN Social History Tobacco Use [...] Description 07/28/2025 10:00 AM EDT Medication Management [facility] MEDICINE [address] [place] [phone] Madhuri Becker, PharmD [address] [place] [address] 07/31/2025 10:00 AM EDT Clinical Support [facility] DIABETES/NUTRITION [address] [place] [phone] [place] [address] 09/01/2025 10:45 AM EDT Office Visit [facility] MEDICINE [address] [place] [phone] Name, MD Royal [address] [place] [address] 09/28/2025 10:30 AM EST Office Visit [facility] OPTOMETRY [address] [place], [place] [phone] Aneesh, Meli, OD [address] [place] [address] documented as of this encounter Visit Diagnoses Not on filedocumented in this encounter Care Teams Career Services Coordinator Relationship Specialty Start Date End Date Name, MD Royal [address] [place] [address] [phone] PCP - General Family Medicine 06/16/19 Madhuri Becker PharmD [address] [place] [address] [phone] Pharmacist Internal Medicine 03/19/23 documented as of this encounter
--- OUTSIDE RECORDS SUMMARY | 2025-07-17 09:52 | XMS_ITS | Encounter Summary ---
Author Organization [facility] Address [address] [place] [address] Phone Care Team Providers Care Internal Combustion Engine Assembler Name Role Phone Name, Royal BEATYT Primary Care Provider [phone] Encounter Details Date Type Department Care Team (Late Contact Info) Description 03/20/2025 Documentation Only [facility] [address] [place] [address] Elidia Cruz PR [address] [place] [phone] Social History Tobacco Use Types Packs/Day Years [...] Visit [facility] - Vascular Access Center [address] [place] [phone] Vineet Jimenez MD [address] [place] [phone] 09/14/2025 3:30 PM EDT Office Visit [facility] [address] [place] [address] Irvin Sawyer MD [address] [place] [address] documented as of this encounter Visit Diagnoses Not on filedocumented in this encounter Care Teams Internal Combustion Engine Assembler Relationship Specialty Start Date End Date Name, MD Royal [address] [place] [phone] PCP - General 09/23/19 documented as of this encounter
[2025-07-17 11:43] LABS: MANUAL DIFF FLAG NO
[2025-07-17 12:06] LABS: Appearance Urine Cloudy; Glucose Urine UA Negative (Negative); Hematocrit 32.7 % (37.0-47.0); Hemoglobin 10.5 g/dl (12.0-16.0); Imm Gran Abs Auto 0.01 X10*3/uL (0.00-0.03); Imm Gran Pct Auto 0.1 % (0.0-0.4); Lymphocytes Absolute Auto 3.9 X10*3/uL (1.2-4.9); Mean Corpuscular HGB Conc 32.1 g/dl (31.0-35.0); Mean Corpuscular Hemoglobin 31.9 pg (27.0-33.0); Mean Corpuscular Volume 99.4 fL (80.0-98.0); NRBC Abs Auto 0.000 X10*3/uL (0.0-0.012); NRBC Pct Auto 0.0 /100WBC (0.0-0.2); PH 5.5 (5.0-9.0); Platelet Count 179 X10*3/uL (160-400); Red Blood Count 3.29 X10*6/uL (4.20-5.50); Specific Gravity - Urine 1.015 (1.005-1.025); UMIC TRIGGER UA YES; White Blood Count 8.8 X10*3/uL (4.8-10.8)
[2025-07-17 12:32] LABS: Other Crystals Urine Present
[2025-07-17 13:04] LABS: Anion Gap 20 (12-20); Blood Urea Nitrogen 67 mg/dL (9-16); Calcium 12.0 mg/dL (8.4-10.2); Carbon Dioxide 27 mmol/L (22-29); Chloride 97 mmol/L (96-108); Estimated Glomerular Filt Rate 12; Iron 106 mcg/dL (30-160); Parathyroid Hormone Intact 67.8 pg/mL (8.7-77.1); Percent Iron Saturation 41 % (15-50); Potassium 3.9 mmol/L (3.3-5.1); Sodium 140 mmol/L (135-145); Total Iron Binding Capacity 256 mcg/dL (228-428); Unsaturated Iron Binding 150 ug/dL; Uric Acid 7.7 mg/dL (2.4-5.7)
[2025-07-17 13:21] LABS: Ferritin 336 ng/mL (10-250)
[2025-07-17 16:46] LABS: Renal w Reflex Lab Use Only Order verified
[2025-07-22 13:03] LABS: VITAMIN D (1,25 OH) D3 17 pg/mL; Vit D (1,25-Dihydroxy) Total 17 pg/mL (18-72); Vitamin D (1,25 OH) D2 <8 pg/mL
== END 2025-07-17 09:01 | disposition home or self-care (01) ==
LOC: HO.HHCL 09:00
PROVIDERS: PCP Internal Medicine Geriatric Medicine; Visit Provider Internal Medicine Nephrology
DX: N18.4 Chronic kidney disease, stage 4 (severe) (principal); D63.1 Anemia in chronic kidney disease; E21.1 Secondary hyperparathyroidism, not elsewhere classified
CPT/HCPCS: 36415; 80051; 81001; 81003; 82310; 82565; 82570; 82652; 82728; 83540; 83970; 84100; 84520; 84550; 85025

== ENCOUNTER 2025-09-04 09:47 | Outpatient (REF) | payer OTHER, SELFPAY ==
--- OUTSIDE RECORDS SUMMARY | 2025-08-17 10:00 | XMS_ITS | Encounter Summary ---
Author Organization [facility] Address [address] [place] [address] Phone Care Team Providers Care Diesel Bus Mechanic Name Role Phone Name, Royal BEATTY Primary Care Provider [phone] Encounter Details Date Type Department Care Team (Latest Contact Info) Description 08/17/2025 10:00 AM EDT Procedure visit [facility] - [facility] Center [address] [place] [address] [place] [phone] Edward Santos MD [address] [place] [address] [place] [phone] Stage 5 chronic kidney disease (HCC) (Primary Dx) Social History Tobacco Use Types Packs/Day Years [...] Sign Reading Time Taken Comments Blood Pressure 130/72 08/17/2025 9:07 AM EDT Pulse 83 08/17/2025 9:07 AM EDT Temperature 36.7 C (98.1 F) 08/17/2025 9:07 AM EDT Respiratory Rate 14 08/17/2025 9:07 AM EDT Oxygen Saturation 93% 08/17/2025 9:07 AM EDT Inhaled Oxygen Concentration - - Weight 98.9 kg (218 lb) 08/17/2025 9:07 AM EDT Height 165.1 cm (5' 5 ) 08/17/2025 9:07 AM EDT Body Mass Index 36.28 08/17/2025 9:07 AM EDT documented in this encounter Progress Notes * Painting, Dulce Maria - 08/17/2025 10:00 AM EDT VAC Nurse Pre-Op Form Arrival time: 0900 Vitals: 08/17/25 0907 BP: 130/72 BP Location: Right upper arm Patient Position: Sitting Pulse: 83 Resp: 14 Temp: 98.1 ??F SpO2: 93% Weight: 218 lb (98.9 kg) Height: 5' 5 (1.651 m) Pre-Procedure Checklist: Patient ID Confirmed: [x] Yes [] No Questionnaire Reviewed: [x] Yes [] No Jewelry Removed: [] Yes [] No [x] N/A Dentures Removed: [] Yes [] No [x] N/A Food, alcohol, pain meds, sedatives in last 8 hours: [] Yes [x] No Procedure Verified by Patient: [x] Yes [] No [] Fistulagram [] Angioplasty [] Thrombectomy [x] BAM [] Stent Placement [] Ligation [] Catheter Placement [] Catheter Replacement [] Portacath Placement [] Portacath Removal [] Venogram [] Peritoneal dialysis catheter insertion. [] Peritoneal dialysis catheter removal.[] Percutaneous AV Fistula Creation [] Nerve Block Injection [] Percutaneous Kidney Transplant Biopsy Acknowledgements and Consent for Care/Treatment/Procedure/Anesthesia Signed: [x] Yes [] No Problem and medication list updated: [x] Labs Reviewed: Glucose Results (Point of Care) if applicable: Time: 0700 Result: 251 Platelets Date Value Ref Range Status 02/24/2025 193 150 - 450 x10E3/uL Final Potassium Date Value Ref Range Status 07/17/2025 3.9 mEq/L Final INR Date Value Ref Range Status 10/01/2020 1.1 0.9 - 1.1 Final Comment: INTERNATIONAL NORMALIZED RATIO (INR) REFERENCE RANGES Reference Range For patients not on anticoagulant therapy: 0.9 - 1.1 INR ranges for oral anticoagulant therapy: For prevention and treatment of venous thrombosis and pulmonary embolism: 2.0 - 3.0 For acute myocardial infarction with aspirin therapy: 2.0 - 3.0 For acute myocardial infarction without aspirin therapy: 3.0 - 4.0 For patients with mechanical prosthetic heart valves: 2.5 - 3.5 Patient arrived: [x] Ambulatory [] Ambulatory/cane [] Ambulatory/walker [] Via wheelchair [] Via stretcher Mental Status: [x] A&O x3 [] Lethargic [] Dementia [] Confused Lungs: [x] Lungs clear bilaterally [] Right []Clear []Absent [] Diminished []Rales []Rhonchi []Wheezing []Rub [] Left []Clear []Absent [] Diminished []Rales []Rhonchi []Wheezing []Rub Heart: [x] Regular rate [] Regular rate with murmur [] Irregular rate [] Irregular rate with murmur Access Type: [x] AV Access [] Central Venous Catheter [] Port [] Peritoneal Catheter [] None Location: [x] Left [] Right [x] Arm [] Thigh [] Chest [] Groin [] Abdomen [] Left [] Right [] Arm [] Thigh [] Chest [] Groin [] Abdomen Access Assessment: [x] Thrill present [] Pulsatile thrill present [] Thrombosed [] Aneurysmal [x] No signs of infection Distal pulse to surgical site: [] Right. [x] Left. [] Brachial. [x] Radial. [] DP. [] PT. [] Popliteal. [x] Present. [] Weak. [] Absent. [] Doppler. Peritoneal Catheter insertion: [] Fleets enema 2-3 hrs prior to arrival [] Voided prior to entering OR [] Grounding pad placed on thigh IV Site: []Left []Right []Dorsum of hand []Forearm []Wrist []Antecubital Angio size: []22G []18G Medications Administered: [x] Cephalexin 500 mg po @ 1011 ([facility]#[id number]) [] Clindamycin 300 mg po @ ([facility]#[id number]) [] Cefazolin slow IVP 1 gm (wgt<60 kg) @ ([facility]#[id number]) [] Cefazolin slow IVP 2 gm (wgt 60-120 kg) @ ([facility]#[id number]) [] Cefazolin slow IVP 3 gm (wgt > or = 120 kg) @ ([facility]#[id number]) [] Clindamycin 600 mg in 50 ml NS IV over 20 minutes @ ([facility]#[id number]) [] Vancomycin 1 GM IV over 1 hour @ ([facility]#[id number]) Site marked: [x] L hand Marked by: [x]Eliza Painting RN []Cherelle England RN [] Gurmeet Bower RN Notes: Immediately upon arrival to waiting room, pt was screened for COVID. All responses to COVID screening questions were answered negative. Patient temperature was checked and was noted to be WNL (see vital sign section in EHR for details). Pt then brought to pre-op room. Pt presents for access evaluation with possible BAM procedure/coil. Pt has not initiated dialysis yet. No planned start date. Stopped ASA starting 08/14. Report given to: []Eliza Painting RN []Cherelle England RN [] Gurmeet Painting * Dulce Maria Painting - 08/17/2025 10:00 AM EDT VAC NURSING INTRA-OP FORM Events Record: TIME Time in OR 1014 Time out called 1028 Anesthesia start na Procedure start 1028 Procedure end 1044 Time out of OR 1047 Anesthesia end na Surgeon: [x] Danielle. [] Moe. [] Noé. Circulating RN: [x] Garima [] Tomás [] Cheli Thermal Cutter Helper: [x] Pedro. [] Cheli [] Naresh. preschool teacher's assistant: [] Sheila. [x] Naresh. [] Edilberto. [] Lane. Anesthesia: [x] Kurbanov. [] Rosa. [] McParttelma. Safety Checks: Pre-procedure counts of sponges, sharps and instruments: [x] Yes [] N/A PPE verified: [x] Yes [] N/A Supine position: [x] Yes [] N/A Pillow under knees and safety strap on: [x] Yes [] N/A Grounding pad: ESU setting 30/30 Blend 2: [] Yes [x] N/A Grounding pad location: [] left flank. [] right flank. [] left thigh. [] right thigh. Site marking verified/ correct site during time-out [x] Xray in Use light turned on: [x] Yes [] N/A Fire Risk Assessment: Alcohol-based skin antiseptic: [x] Yes [] No Surgical site above xiphoid: [] Yes [x] No Oxygen being administered: [] Yes [x] No Electrosurgical unit being used: [] Yes [x] No Skin Prep: Duraprep: [x] Yes Chloraprep: [] Yes 70% Isopropyl Alcohol: [] Yes Final Count Correct: [x] Yes [] N/A Implant: [x] Yes [] No [] CVC [x] coil Curtain Stretcher Assembler: [employer] Lot#1: [id number] Ref#: [id number] Date: 01/12/2030 Local type: [] Mix 1% xylocaine (5cc), 0.5% marcaine with epinephrine (5cc), and normal saline 0.9% (10cc) Total 1% xylocaine and 0.5% marcaine with epinephrine ml given: Total 1% xylocaine and 0.5% marcaine with epinephrine ml wasted: [] Mix 1% xylocaine with epinephrine (5cc), 0.25% marcaine (5cc), and normal saline 0.9% (10cc) Total 1% xylocaine with epinephrine and 0.25% marcaine ml given: Total 1% xylocaine with epinephrine and 0.25% marcaine ml wasted: [x] Mix xylocaine 1% plain (1cc), and normal saline 0.9% (1 cc) Total xylocaine 1% ml given: 0.5 Total xylocaine 1% ml wasted: 0.5 Local prior to nerve block injection: [] xylocaine 1% plain (3cc): Total xylocaine 1% ml given: XX ml @ Total xylocaine 1% ml wasted: Nerve Block injection: [] Mix 2% lidocaine (10cc) [facility] [id number], and marcaine 0.5% (10cc) [facility] [id number] Total 2% lidocaine and 0.5% marcaine ml given: XX ml @ Total 2% lidocaine and 0.5% marcaine ml wasted: ANTI-SPASMOTIC COCKTAIL: [] Mix Heparin 2500 ux (2.5 ml of 1000 ux/ ml), Verapamil 2.5 mg (1 ml), and normal saline 0.9% (16.5 ml) Total heparin and verapamil ml given: XX ml @ Total heparin and verapamil ml wasted: Dye: [x] Optiray 320 [] Optiray 350 [] Omnipaque 350 Total ml given: 10 cc Total ml wasted: 40 cc Radiation usage: 0.57 mGy Anesthesia used: [] None. [x] Local. [] IV sedation. Procedure: [] Fistulagram. [] Angioplasty. [] Thrombectomy. [] BAM. [] Stent placement. [x] coil. [] Catheter placement. [] Catheter replacement. [] Portacath placement [] Portacath removal. [] Venogram. [] Peritoneal dialysis catheter insertion. [] Peritoneal dialysis catheter removal. [] Percutaneous AV Fistula Creation [] Percutaneous Kidney Transplant Biopsy Patient transferred OR table: [x] Ambulatory. [] Wheelchair. [] Stretcher. Intra-operative Flow Sheet: Time 1014 1019 1024 1029 1034 1039 1044 BP 143/73 141/71 140/70 135/71 140/74 141/71 148/72 Heart rate 79 79 79 79 80 79 79 Rhythm Sr 1st degree hb Sr 1st degree hb Sr 1st degree hb Sr 1st degree hb Sr 1st degree hb Sr 1st degree hb Sr 1st degree hb Resp rate 11 15 12 11 10 10 11 O2 sat 98 94 94 94 94 97 96 LOC a a a a a a a Pain scale 0 0 0 0 0 0 0 Time Total Given Total Wasted Given By Versed mg Response Fentanyl mcg Response Time BP Heart rate Rhythm Resp rate O2 sat LOC Pain scale Time Total Given Total Wasted Given By Versed mg Response Fentanyl mcg Response Legend: LOC: A = Awake B = Drowsy but awake and responds appropriately to voice C = Slow to arouse and responds appropriately to touch D = Difficult to arouse and responds inappropriately to stimulation Pain scale: 0 (no pain) ... 5 (moderate pain) ... 10 (severe pain) Response to medication: 1 = no effect 2 = moderate effect 3 = effective Nurses Notes: Time Note 1014 Pt assisted on OR table and prepped in usual manner. [address] Santos 1048 Pt tolerated procedure well, transferred to recovery via wheelchair Dulce Maria Painting * Dulce Maria Painting - 08/17/2025 10:00 AM EDT VAC NURSING RECOVERY FORM Arrival time: 1051 Transferred to recovery room via: [] cardiac chair. [] stretcher. [x] wheelchair. [] ambulatory Report given by: [] Garima [] Tomás. [] Cheli. Anesthesia: [x] local. [] IV conscious sedation. [] none. Position of patient: [] Supine. [x] Fowlers. [] T-Liu Skin: [x] Warm. [] Cool. [x] Dry. [] Diaphoretic. Breath sounds equal & clear: [x] Yes. [] No. (see comment in nursing note below). IV site: [x] N/A [] Patent. [] Clean& dry. [] Erythema. Surgical dressing site: [x] Left. [] Right. [x] Arm. [] Leg. [] Neck. [] Chest. [] Abdomen. [] Left. [] Right. [] Arm. [] Leg. [] Neck. [] Chest. [] Abdomen. Surgical dressing dry and intact: [x] Yes. [] No. (see comment in nursing note below). AV access: [x] Thrill present. [] Pulsatile thrill. [] Thrombosed. [] N/A Distal pulse to surgical site: [] Right. [x] Left. [] Brachial. [x] Radial. [] DP. [] PT. [] Popliteal. [x] Present. [] Weak. [] Absent. [] Doppler. Nausea on arrival: [] Yes. [x] No. IV Fluid given: 0.9% NaCl [x] N/A [] ml 0.9% NaCl with 1 gram Vancomycin [x] N/A [] ml Medications: Time Drug/Dose Route Response []Effective []Mod effective []No effect []Effective []Mod effective []No effect Time 1051 BP 148/79 Heart rate 61 Heart Rhythm na Resp rate 14 O2 sat 94 LOC a Pain scale 0 Legend: LOC: A = Awake; B = Drowsy but awake and responds appropriately to voice; C = Slow to arouse and responds appropriately to touch; D = Difficult to arouse and responds inappropriately to stimulation Pain scale: 0 (no pain) ... 5 (moderate pain) ... 10 (severe pain) Functional Status Score Admit Discharge Activity 2 2 2=Moves all extremities voluntarily or on command, 1=Moves two extremities, 0=Unable to move extremities Respirations 2 2 2=Breathes deeply and coughs freely, 1=Dyspneic, shallow, or limited breathing, 0=Apnea Circulation 2 2 2=BP + 20mm of preanesthetic level, 1=BP + 20-50mm of preanesthetic level, 0=BP + 50mm preanesthetic level Consciousness 2 2 2=Fully awake, 1= Arousable on calling, 0=Not responding O2 Saturation 2 2 2=SpO2 >92% on room air, 1=Supplemental O2 required to maintain SpO2 >90%, 0=SpO2 <92% with O2 supplementation TOTAL 10 10 SCORE >9 REQUIRED FOR DISCHARGE Discharge Checklist YES NO N/A COMMENTS Nausea/vomiting [] [x] [] Taking nourishment without problem [x] [] [] Pain Controlled [x] [] [] IV removed [] [] [x] Prescriptions given & reviewed [] [] [x] Reconciled medication/ allergy list given to patient. [] [] [] [x] Pt declined list due to already having a current list. Discharge instructions reviewed with stated understanding. [x] [] [] Discharge criteria met [x] [] [] Nurses Notes: Time Note 1051 Pt arrived to recovery A&O X 3. 1055 Dr Santos present in recovery and cleared pt for discharge. Pt assisted with dress and discharged home. Discharged to: [x]Home. []Long-Term. []Hospital. []Dialysis. Accompanied by: [] Spouse. [x] Family. [] Friend. [] Van service. [] Ambulance. [] Staff. Discharge time: 1055 Discharged via: [] Wheelchair. [] Stretcher. [x] Ambulatory. [] Ambulance. * Edward Santos MD - 08/17/2025 10:00 AM EDT Images from the original note were not included. VAC Dialysis Access Coil Embolization of Accessory Vein(s) Procedure Date: 08/17/25 Preoperative Diagnosis: Malfunctioning dialysis access Postoperative Diagnosis: Malfunctioning dialysis access Procedure: Needle cannulation of dialysis access in the: left arm Angiogram dialysis access: left arm Endovascular embolization of dialysis circuit accessory vein Fluoroscopy guidance Ultrasound guidance was used for cannulation. Anesthesia: local Procedure Description: After obtaining informed consent, the patient was placed on the operating table in supine position.EKG, BP and continuous oxygen saturation monitoring were performed. The operative site was prepped and draped in the usual sterile fashion. The medial brachial vein which had significant flow on US was cannulated 4cm above the elbow Endovascular embolization of dialysis circuit accessory vein: A significant venous side branch of the fistula was identified. It was measured with ultrasound. A glide wire followed by an angled angiography catheter was carefully manipulated into the accessory vein. An appropriately sized Tamra embolization coil(s) was deployed through the catheter to occlude the accessory vein. The catheter was removed and hemostasis was achieved. Findings: Site 1: Coil(s) used: Tamra embolization coil, 8 x 7 mm EKG: sinus rhythm The flow in the access was assessed as fair. Distal Pulse: palpable. Notes: May need BAM if flow does not improve and there is no further accessory flow Plan: documented in this encounter H&P Notes * Edward Santos MD - 08/17/2025 10:00 AM EDT Images from the original note were not included. HISTORY AND PHYSICAL DATE: 08/17/25 HPI: This patient was referred for poorly developed access.. Patient Questionnaire Reviewed. Physical Exam: Vitals: 08/17/25 0907 BP: 130/72 BP Location: Right upper arm Patient Position: Sitting Pulse: 83 Resp: 14 Temp: 98.1 ??F SpO2: 93% Weight: 218 lb (98.9 kg) Height: 5' 5 (1.651 m) General: (alert, distress, habitus) within normal limits Neck: (tone, JVD) within normal limits Resp: (effort, auscultation) within normal limits CV: (S1/S2/murmur) within normal limits Pulses: left radial palpable Dialysis Access: left arm weak thrill Problem List: Patient Active Problem List Diagnosis Chronic kidney disease stage 3 (HCC) Essential hypertension Hyperlipidemia Proteinuria Type 2 diabetes mellitus without complication (HCC) Secondary hyperparathyroidism (HCC) Anemia in chronic kidney disease Chronic kidney disease, stage 4 (severe) (HCC) Back pain Carcinoma in situ of breast Procedure Assessment/Plan: Diagnosis: Malfunctioning dialysis access. Procedure/Plan: Embolization of venous side branches Anesthesia Assessment: ASA Status: Class 2 Airway: Class 3 Plan: local documented in this encounter Plan of Treatment Upcoming Encounters Date Type Department Care Team (Late st Contact Info) Description 09/11/2025 1:00 PM EDT Procedure visit [facility] Vascular Access Center [address] [place] [phone] 09/14/2025 3:30 PM EDT Office Visit [facility] [address] [place] [phone] Abiel Gross MD [address] [place] [address] [place] [address] documented as of this encounter Visit Diagnoses Diagnosis Stage 5 chronic kidney disease (HCC)- Primary documented in this encounter Care Teams Diesel Bus Mechanic Relationship Specialty Start Date End Date Name, MD Royal [address] [place] [id number] PCP - General 09/23/19 documented as of this encounter
--- OUTSIDE RECORDS SUMMARY | 2025-09-01 10:45 | XMS_ITS | Encounter Summary ---
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 disease not on chronic dialysis, with long-term current use of insulin (HCC) (Primary Dx); Generalized pruritus; Chronic bilateral low back pain with left-sided sciatica; Encounter for immunization Social History Tobacco Use Types Packs/Day Years Used Date Smoking Tobacco: Former Cigarettes Passive Smoke Exposure: Past Smokeless Tobacco: Never Tobacco Cessation:Counseling Given: Not [...] Sign Reading Time Taken Comments Blood Pressure 128/64 09/01/2025 11:03 AM EDT Pulse 86 09/01/2025 11:03 AM EDT Temperature 36.7 C (98 F) 09/01/2025 11:03 AM EDT Respiratory Rate 18 09/01/2025 11:03 AM EDT Oxygen Saturation 98% 09/01/2025 11:03 AM EDT Inhaled Oxygen Concentration - - Weight 90.9 kg (200 lb 8 oz) 09/01/2025 11:03 AM EDT Height 165.1 cm (5' 5 ) 09/01/2025 11:03 AM EDT Body Mass Index 33.36 09/01/2025 11:03 AM EDT documented in this encounter Progress Notes * Royal Pitt MD - 09/01/2025 10:45 AM EDT Subjective Patient ID: Luz Elena Church is a 80 y.o. female who presents for Follow-up. Patient comes for a follow-up visit She feels well. Blood sugar has been has been well-controlled. No episodes of hypoglycemia on her CGM BP is well-controlled. She has stage V CKD and she is not on hemodialysis yet. She continues to follow with nephrology closely. She has an AV fistula on the left forearm in preparation for hemodialysis. She does not have any leg edema. She does not feel tired. She has good appetite. She complains of generalized pruritus that is likely secondary to her advanced CKD. Review of Systems Constitutional: Negative for chills and fever. HENT: Negative for sore throat. Respiratory: Negative for cough, shortness of breath and wheezing. Cardiovascular: Negative for chest pain, palpitations and leg swelling. Gastrointestinal: Negative for abdominal pain. Skin: Negative for rash. See HPI Objective Vitals: 09/01/25 1103 BP: 128/64 BP Location: Right arm Patient Position: Sitting BP Cuff Size: Large adult Pulse: 86 Resp: 18 Temp: 98 ??F (36.7 ??C) TempSrc: Oral SpO2: 98% Weight: 200 lb 8 oz (90.9 kg) Height: 5' 5 (1.651 m) Physical Exam Constitutional: Appearance: Normal appearance. Cardiovascular: Rate and Rhythm: Normal rate and regular rhythm. Heart sounds: No murmur heard. No gallop. Pulmonary: Effort: Pulmonary effort is normal. No respiratory distress. Breath sounds: Normal breath sounds. No wheezing. Musculoskeletal: Right lower leg: No edema. Left lower leg: No edema. Neurological: Mental Status: She is alert. Lab Results Component Value Date HGBA1C 8.7 (A) 08/27/2025 HGBA1C 8.8 (A) 03/19/2025 HGBA1C 9.5 (A) 12/04/2024 HGBA1C 10.7 (A) 08/25/2024 HGBA1C 10.4 (A) 06/02/2024 HGBA1C 10.6 (A) 03/11/2024 HGBA1C 10.3 (A) 11/30/2023 HGBA1C 9.4 (A) 07/26/2023 HGBA1C 8.3 (H) 04/27/2023 HGBA1C 9.7 (A) 03/02/2023 HGBA1C 9.5 (A) 11/09/2022 Assessment/Plan Diagnoses and all orders for this visit: Type 2 diabetes mellitus with stage 5 chronic kidney disease not on chronic dialysis, with long-term current use of insulin (HCC) Comments: Continue current medications. Reminded to avoid NSAIDs. Continue following closely with nephrology. Orders: - POCT Glucose Generalized pruritus Comments: I recommended trial of daily loratadine in the mornings. She is also using Benadryl at bedtime as needed. Chronic bilateral low back pain with left-sided sciatica Comments: Patient complains of chronic low back pain. This is secondary to DJD. I recommend to use Tylenol asneeded. Pain exacerbated by standing from a chair or standing for too long. She requested prescription for shower chair and a lift recliner and I agreed. She is recommended to use Tylenol as needed for the pain. Encounter for immunization - FLU VACCINE TRIVALENT HIGH DOSE [id number] (Fluzone) 65 yrs + Other orders - loratadine (Claritin) 10 MG tablet; Take 1 tablet (10 mg) by mouth Once per day. Future Appointments Date Time Provider Department Center 09/28/2025 10:30 AM Meli Melendrez OD [facility] 09/30/2025 10:00 AM Madhuri Becker PharmD [facility] documented in this encounter Plan of Treatment Upcoming Encounters Date Type Department Care Team (Late st Contact Info) Description 09/28/2025 10:30 AM EST Office Visit [facility] [address] [place] [address] Meli Melendrez, OD [address] [place] [address] 09/30/2025 10:00 AM EST Medication Management [facility] [address] [place] [address] Madhuri Becker PharmD [address] [place] [address] documented as of this encounter Goals Goal Patient Goal Type Associated Problems Recent Progress Patient-Stated? Author Hemoglobin A1c < 8 Result Component 8.7( 11:59 AM EDT) No Madhuri Becker PharmD Record your blood sugar as directed Result Component No Madhuri Becker PharmD Note: Use CGM, as instructed, ensuring sensor is scanned at least Q8hr. Check BG via fingerstick as needed & as directed. documented as of this encounter Procedures Procedure Name Priority Date/Time Associated Diagnosis Comments POCT GLUCOSE Routine 09/01/2025 11:04 AM EDT Type 2 diabetes mellitus with stage 5 chronic kidney disease not on chronic dialysis, with long-term current use of insulin (HCC) documented in this encounter Results * POCT Glucose (09/01/2025 11:04 AM EDT) Glucose Blood, POC 163 60 - 200 mg/dL QC Media Lot # [id number] Lot# Expiration Date Blood Capillary blood specimen / Unknown 09/01/2025 11:04 AM EDT Royal Pitt MD POINT OF CARE TEST ENTER/EDIT OR DERABLES Final Result documented in this encounter Visit Diagnoses Diagnosis Type 2 diabetes mellitus with stage 5 chronic kidney disease not on chronic dialysis, with long-term current use of insulin (HCC)- Primary Generalized pruritus Unspecified pruritic disorder Chronic bilateral low back pain with left-sided sciatica Encounter for immunization documented in this encounter Additional Health Concerns Assessment Noted Time PHQ-9 Depression Total Score: 3 04/16/20 25 9:38 AM EDT documented as of this encounter Care Teams Entry Level Sales Associate Relationship Specialty Start Date End Date Name, MD Royal [address] [place] [address] PCP - General Family Medicine 06/16/19 Madhuri Becker PharmD [address] [place] [address] Pharmacist Internal Medicine 03/19/23 documented as of this encounter
--- OUTSIDE RECORDS SUMMARY | 2025-09-02 15:00 | XMS_ITS | Encounter Summary ---
Author Organization [facility], Address [address] [place] [address] Phone Care Team Providers Care Inbound Sales Manager Name Role Phone Name, Royal BEATTY Primary Care Provider [phone] Encounter Details Date Type Department Care Team ([facility] st Contact Info) Description 09/02/2025 3:00 PM EDT Office Visit [facility] - Vascular Access Center [address] [place] [address] [place] [address] Edward Santos MD [address] [place] [address] [place] [phone] Chronic kidney disease, stage 4 (severe) (HCC) (Primary Dx) Social History Tobacco Use [...] on file documented as of this encounter Progress Notes * Edward Santos MD - 09/02/2025 3:00 PM EDT Images from the original note were not included. Hemodialysis Access Note Date: 09/02/25 Access: left arm fistula not being used for dialysis yet. Patient reports: no complaints There were no vitals filed for this visit. Physical Exam: Extremity: left arm Access: thrill present Incision: intact Distal extremity: normal Distal pulse: radial palpable Duplex ultrasound performed - see separate images. Fistula is 6mm. Brachial vein flow 90, BA flow 450, Assessment: Malfunctioning access Plan: Schedule balloon angioplasty maturation procedure. Notes: Preferential outflow in cephalic now, vein is 6mm, will start BAM documented in this encounter Plan of Treatment Upcoming Encounters Date Type Department Care Team (Late st Contact Info) Description 09/11/2025 1:00 PM EDT Procedure visit [facility] V[facility] Access Center [address] [place] [address] [place] [phone] 09/14/2025 3:30 PM EDT Office Visit [facility] [address] [place] [phone] Abiel Gross MD [address] [place] [address] [place] [phone] documented as of this encounter Visit Diagnoses Diagnosis Chronic kidney disease, stage 4 (severe) (HCC)- Primary documented in this encounter Care Teams Inbound Sales Manager Relationship Specialty Start Date End Date Name, MD Royal [address] [place] [id number] PCP - General 09/23/19 documented as of this encounter
--- NOTE | ~2025-09-04 | MM_ITS ---
EXAMINATION: MM SCREENING DIGITAL BREAST TOMOSYNTHESIS, LEFT CLINICAL INFORMATION: Screening. Asymptomatic. Right mastectomy. COMPARISON: Mammography: Comparison is made with available priors TECHNIQUE: Digital breast mammography with tomosynthesis is performed in both the craniocaudal and mediolateral oblique views along with computer-aided detection (CAD). FINDINGS: There are scattered areas of fibroglandular density. There are no significant masses, abnormal calcifications, or other abnormalities. MM/MM tomosynthesis screening BI IMPRESSION: No mammographic evidence of malignancy. ASSESSMENT: BI-RADS Category 1: Negative RECOMMENDATION: Routine annual mammography screening. 1 year F/U This examination should not preclude the clinical evaluation of a suspicious palpable abnormality. This patient's information was entered into a reminder system with a target due date for their next mammogram. Electronically signed by: Jane Douglas DO 09/07/2025 04:38 PM EDT
--- OUTSIDE RECORDS SUMMARY | 2025-09-04 11:17 | XMS_ITS | Encounter Summary ---
Author Organization [employer] Address [address] [facility] 7t [place] [address] Care Team Providers Care Artificial Plastic Eye Maker Name Role Phone Name, Royal BEATTY Primary Care Provider [phone] Madhuri Becker PharmD Unavailable [phone] Encounter Details Date Type Department Care Team (Late Contact Info) Description 11/02/2022 Orders Only [facility] [address] [place] [address] Nory Brown LPN Social History Tobacco Use [...] Department Care Team (Late Contact Info) Description 09/28/2025 10:30 AM EST Office Visit [facility] [address] [place] [address] Aneesh, Meli, OD [address] [place] [address] 09/30/2025 10:00 AM EST Medication Management [facility] [address] [place] [address] Madhuri Becker, PharmD [address] [place] [address] documented as of this encounter Visit Diagnoses Not on filedocumented in this encounter Care Teams Artificial Plastic Eye Maker Relationship Specialty Start Date End Date Name, MD Royal [address] [place] [address] PCP - General Family Medicine 06/16/19 Madhuri Becker, AlissonD [address] [place] [address] Pharmacist Internal Medicine 03/19/23 documented as of this encounter
--- OUTSIDE RECORDS SUMMARY | 2025-09-04 11:17 | XMS_ITS | Encounter Summary ---
Author Organization [employer] Address [address] [facility] 7t [place] [address] Care Team Providers Care Plant Operations Worker Name Role Phone Name, Royal BEATTY Primary Care Provider [phone] Madhuri Becker PharmD Unavailable [phone] Reason for Visit * Reason Onset Date Comments Appointment Request 11/03/2024 Encounter Details Date Type Department Care Team ([facility] Contact Info) Description 11/03/2024 Telephone [facility] [address] [place] [address] Name, MD Royal [address] [place] [address] Appointment Request Social History Tobacco Use Types [...] 11/03/2024 9:22 AM EST Tc from [facility] ([facility]) requesting to reschedule today's CDTM visit. Please contact [facility] at [phone]. (Romanian Speaker) documented in this encounter Plan of Treatment Upcoming Encounters Date Type Department Care Team (Late st Contact Info) Description 09/28/2025 10:30 AM EST Office Visit [facility] [address] [place] [address] Meli Melendrez, OD [address] [place] [address] 09/30/2025 10:00 AM EST Medication Management [facility] [address] [place] [address] Madhuri Becker, PharmD [address] [place] [address] documented as of this encounter Goals Goal Patient Goal Type Associated Problems Recent Progress Patient-Stated? Author Hemoglobin A1c < 8 Result Component 8.7( 5 11:59 AM EDT) No Madhuri Becker, PharmD Record [...] documented as of this encounter Care Teams Plant Operations Worker Relationship Specialty Start Date End Date Name, MD Royal [address] [place] [address] PCP - General Family Medicine 06/16/19 Madhuri Becker PharmD [address] [place] [address] Pharmacist Internal Medicine 03/19/23 documented as of this encounter
--- OUTSIDE RECORDS SUMMARY | 2025-09-04 11:17 | XMS_ITS | Encounter Summary ---
Author Organization [facility], Address [address] [place] [phone] Phone Care Team Providers Care Steward/Stewardess Banquet Name Role Phone Name, Royal BEATTY Primary Care Provider [phone] Encounter Details Date Type Department Care Team ([facility] Contact Info) Description 12/19/2022 Documentation Only [facility] [address] [place] [phone] Polina Sarmiento [address] [place] [address] Social History Tobacco Use Types [...] Upcoming Encounters Date Type Department Care Team ([facility] Contact Info) Description 09/11/2025 1:00 PM EDT Procedure visit [facility] Vascular Access Center [address] [place] [phone] 09/14/2025 3:30 PM EDT Office Visit [facility] [address] [place] [phone] Abiel Gross MD [address] [facility] [address] [place] [address] documented as of this encounter Visit Diagnoses Not on filedocumented in this encounter Care Teams Steward/Stewardess Banquet Relationship Specialty Start Date End Date Name, MD Royal [address] [place] [phone] PCP - General 09/23/19 documented as of this encounter
--- OUTSIDE RECORDS SUMMARY | 2025-09-04 11:17 | XMS_ITS | Encounter Summary ---
Author Organization [facility] Address [address] [place] [address] Phone Care Team Providers Care Student Truck Driver Name Role Phone Name, Royal BEATTY Primary Care Provider [phone] Encounter Details Date Type Department Care Team (Late Contact Info) Description 07/22/2025 Documentation Only [facility] [address] [place] [phone] [place] [address] [place] [phone] Social History Tobacco Use Types Packs/Day [...] Department Care Team (Late Contact Info) Description 09/11/2025 1:00 PM EDT Procedure visit [facility] V[facility] Access Center [address] [place] [phone] 09/14/2025 3:30 PM EDT Office Visit [facility] [address] [place] [phone] Abiel Gross MD [address] [place] [address] documented as of this encounter Visit Diagnoses Not on filedocumented in this encounter Care Teams Student Truck Driver Relationship Specialty Start Date End Date Name, MD Royal [address] [place] [phone] PCP - General 09/23/19 documented as of this encounter
--- OUTSIDE RECORDS SUMMARY | 2025-09-04 11:17 | XMS_ITS | Encounter Summary ---
Author Organization [employer] Address [address] [facility] 7t [place] [address] Care Team Providers Care Vice President Financial Name Role Phone Name, Royal BEATTY Primary Care Provider [phone] Madhuri Becker PharmD Unavailable [phone] Reason for Visit * Reason Onset Date Comments Appointment Request 01/01/2025 Encounter Details Date Type Department Care Team ([facility] Contact Info) Description 01/01/2025 Telephone [facility] [address] [place] [address] Name, MD Royal [address] [place] [address] Appointment Request Social History Tobacco Use Types [...] 01/01/2025 8:11 AM EST Tc from pt VARNISH BLENDER requesting to r/s Pt apt for 01/01/25. Contact pt VARNISH BLENDER at [phone] documented in this encounter Plan of Treatment Upcoming Encounters Date Type Department Care Team (Late st Contact Info) Description 09/28/2025 10:30 AM EST Office Visit [facility] [address] [place] [address] Meli Melendrez, OD [address] [place] [address] 09/30/2025 10:00 AM EST Medication Management [facility] [address] [place] [address] Madhuri Becker, AlissonD [address] [place] [address] documented as of this encounter Goals Goal [...] documented as of this encounter Care Teams Vice President Financial Relationship Specialty Start Date End Date Name, MD Royal [address] [place] [address] PCP - General Family Medicine 06/16/19 Madhuri Becker PharmD [address] [place] [address] Pharmacist Internal Medicine 03/19/23 documented as of this encounter
--- OUTSIDE RECORDS SUMMARY | 2025-09-04 11:17 | XMS_ITS | Encounter Summary ---
Author Organization [facility] [place], Address [address] [place] [address] Phone Care Team Providers Care Polls Or Surveys Interviewer Name Role Phone Name, Royal BEATTY Primary Care Provider [phone] Encounter Details Date Type Department Care Team (Latest Contact Info) Description 08/31/2025 Orders Only [facility] [address] [place] [phone] Cruz, [place] [address] [place] [phone] Stage 5 chronic kidney disease (HCC) (Primary Dx); Persistent proteinuria; Type 2 diabetes mellitus with diabetic chronic kidney disease, 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) Anemia in chronic kidney disease Secondary hyperparathyroidism (HCC) Hypertension Albuminuria, not otherwise specified Expected: 08/31/2025, Expires: 10/01/2026 Renal Function Panel Lab Routine Stage 5 chronic kidney disease (HCC) Persistent proteinuria Type 2 diabetes mellitus with diabetic chronic kidney disease, 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) Anemia in chronic kidney disease Secondary hyperparathyroidism (HCC) Hypertension Albuminuria, not otherwise specified Expected: 08/31/2025, Expires: 10/01/2026 Urine Albumin / Creatinine Ratio Lab Routine Stage 5 chronic kidney disease (HCC) Persistent proteinuria Type 2 diabetes mellitus with diabetic chronic kidney disease, 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) Anemia in chronic kidney disease Secondary hyperparathyroidism (HCC) Hypertension Albuminuria, not otherwise specified Expected: 08/31/2025, Expires: 10/01/2026 documented as of this encounter Visit Diagnoses Diagnosis Stage 5 chronic kidney disease (HCC)- Primary Persistent proteinuria Type 2 diabetes mellitus with diabetic chronic kidney disease, 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
--- OUTSIDE RECORDS SUMMARY | 2025-09-04 11:17 | XMS_ITS | Encounter Summary ---
Author Organization [facility] [place], Address [address] [address] Phone Care Team Providers Care Dental Hygiene Administrative Assistant Name Role Phone Name, Royal BEATTY Primary Care Provider [phone] Encounter Details Date Type Department Care Team (Late Contact Info) Description 04/09/2023 Documentation Only [facility] [address] [place] [phone] [place] [address] [place] [phone] Social History Tobacco Use Types Packs/Day [...] Encounters Date Type Department Care Team ([facility] Contact Info) Description 09/11/2025 1:00 PM EDT Procedure visit [facility] Vascular Access Center [address] [place] [phone] 09/14/2025 3:30 PM EDT Office Visit [facility] [address] [place] [phone] Abiel Gross MD [address] [place] [phone] documented as of this encounter Visit Diagnoses Not on filedocumented in this encounter Care Teams Dental Hygiene Administrative Assistant Relationship Specialty Start Date End Date Name, MD Royal [address] [place] [address] [phone] PCP - General 09/23/19 documented as of this encounter
--- OUTSIDE RECORDS SUMMARY | 2025-09-04 11:17 | XMS_ITS | Encounter Summary ---
Author Organization [facility] Address [address] [address] Phone Care Team Providers Care Offender Employment Specialist Name Role Phone Name, Royal BEATTY Primary Care Provider [phone] Encounter Details Date Type Department Care Team (Late Contact Info) Description 05/30/2023 Documentation Only [facility] [address] [place] [phone] Abiel Gross MD [address] [place] [address] [place] [phone] Social History Tobacco Use Types Packs/Day Years [...] visit [facility] Vascular Access Center [address] [place] [address] [place] [phone] 09/14/2025 3:30 PM EDT Office Visit [facility] [address] [place] [phone] Abiel Gross MD [address] [place] [address] documented as of this encounter Visit Diagnoses Not on filedocumented in this encounter Care Teams Offender Employment Specialist Relationship Specialty Start Date End Date Name, MD Royal [address] [place] [address] [phone] PCP - General 09/23/19 documented as of this encounter
--- OUTSIDE RECORDS SUMMARY | 2025-09-04 11:17 | XMS_ITS | Encounter Summary ---
Author Organization [facility] Address [address] [place] [address] Phone Care Team Providers Care Boat Motor Mechanic Name Role Phone Name, Royal BEATTY Primary Care Provider [phone] Encounter Details Date Type Department Care Team (Late Contact Info) Description 07/17/2025 Documentation Only [facility] [address] [place] [phone] [place] [address] [place] [phone] Social History Tobacco Use Types Packs/Day [...] And Transplant Services Of [facility] V[facility] Access Center [address] [place] [phone] 09/14/2025 3:30 PM EDT Office Visit [facility] [address] [place] [phone] Abiel Gross MD [address] [place] [address] documented as of this encounter Visit Diagnoses Not on filedocumented in this encounter Care Teams Boat Motor Mechanic Relationship Specialty Start Date End Date Name, MD Royal [address] [place] [address] [phone] PCP - General 09/23/19 documented as of this encounter
--- OUTSIDE RECORDS SUMMARY | 2025-09-04 11:17 | XMS_ITS | Encounter Summary ---
Author Organization [facility] Address [address] [place] [address] Phone Care Team Providers Care Travertine Installer Name Role Phone Name, Royal BEATTY Primary Care Provider [phone] Encounter Details Date Type Department Care Team (Late Contact Info) Description 07/22/2025 Documentation Only [facility] Of [address] [place] [phone] [place] [address] [place] [phone] Social History Tobacco Use Types Packs/Day [...] visit [facility] Vascular Access Center [address] [phone] 09/14/2025 3:30 PM EDT Office Visit [facility] [address] [place] [address] Abiel Gross MD [address] [place] [address] documented as of this encounter Visit Diagnoses Not on filedocumented in this encounter Care Teams Travertine Installer Relationship Specialty Start Date End Date Name, MD Royal [address] [place] [address] [id number] PCP - General 09/23/19 documented as of this encounter
--- OUTSIDE RECORDS SUMMARY | 2025-09-04 11:18 | XMS_ITS | Encounter Summary ---
Author Organization [facility] Address [address] [place] [address] Phone Care Team Providers Care Cyber Transport Systems Specialist Name Role Phone Name, Royal BEATTY Primary Care Provider [phone] Encounter Details Date Type Department Care Team (Late Contact Info) Description 05/15/2024 Documentation Only [facility] Of [address] [place] [address] [place] [address] [place] [phone] Social History Tobacco Use Types Packs/Day [...] visit [facility] Vascular Access Center [address] [place] [phone] 09/14/2025 3:30 PM EDT Office Visit [facility] [address] [place] [address] Abiel Gross MD [address] [place] [address] documented as of this encounter Visit Diagnoses Not on filedocumented in this encounter Care Teams Cyber Transport Systems Specialist Relationship Specialty Start Date End Date Name, MD Royal [address] [place] [address] [phone] PCP - General 09/23/19 documented as of this encounter
--- OUTSIDE RECORDS SUMMARY | 2025-09-04 11:18 | XMS_ITS | Encounter Summary ---
Author Organization [facility] Address [address] [address] Phone Care Team Providers Care Blending Machine Operator Name Role Phone Name, Royal BEATTY Primary Care Provider [phone] Reason for Visit * Reason Comments Med Refill Encounter Details Date Type Department Care Team ([facility] Contact Info) Description 03/25/2024 Refill [facility] [address] [place] [address] Abiel Gross MD [address] [place] [address] [place] [address] Social History Tobacco Use [...] Upcoming Encounters Date Type Department Care Team ([facility] Contact Info) Description 09/11/2025 1:00 PM EDT Procedure visit [facility] Vascular Access Center [address] [place] [address] [place] [phone] 09/14/2025 3:30 PM EDT Office Visit [facility] Of [address] [place] [address] Abiel Gross MD [address] [place] [address] documented as of this encounter Visit Diagnoses Not on filedocumented in this encounter Care Teams Blending Machine Operator Relationship Specialty Start Date End Date Name, MD Royal [address] [place] [phone] PCP - General 09/23/19 documented as of this encounter
--- OUTSIDE RECORDS SUMMARY | 2025-09-04 11:18 | XMS_ITS | Clinical Summary ---
Author Organization [facility] [place], Address [address] [place] [address] [place] [address] Phone Care Team Providers Care Photoresist Contact Printer Name Role Phone Name, Royal BEATTY Primary Care Provider [phone] Allergies No known active allergies Medications acetaminophen [...] 1 (one) time each day 8 Active rosuvastatin (CRESTOR) 10 MG tablet Take 1 tablet by mouth 1 (one) time each day Active aspirin 81 MG tablet Take 1 tablet by mouth 1 (one) time each day Active SM ASPIRIN ADULT LOW STRENGTH 81 MG EC tablet Take 81 mg by mouth at bed time 0 Active famotidine (PEPCID) 20 MG tablet Take [...] blood sugar (LESS THAN 70mg/dL) 2 Active metoprolol tartrate 25 MG tablet TAKE [...] THE EVENING 180 tablet 3 5 Active Mounjaro 15 MG/0.5ML solution auto-injector INJECT ONE PEN (=15MG) SUBCUTANEOUSLY ONCE A WEEK DIRECTED 5 Active Breo Ellipta 100-25 MCG/ACT aerosol powder 5 Active Diclofenac Sodium 1 % gel APPLY 2 GRAMS TOPICALLY TO AFFECTED AREA(S) 4 TIMES A DAY IN THE MORNING, AT NOON, IN THE EVENING, AND AT BEDTIME NEEDED FOR PAIN 5 Active cholecalcifero l (VITAMIN D-3) 25 MCG (1000 UT) tablet TAKE 1 TABLET BY MOUTH EVERY MORNING 30 tablet 11 5 Active loperamide (Imodium A-D) 2 MG tablet Take by mouth 8 Active atorvastatin (LIPITOR) 40 MG tablet Take 40 mg by mouth 8 Active RANITIDINE HCL PO Take 150 mg by mouth 8 Active Active Problems Problem Noted Date Diagnosed Date Back pain 04/29/2025 Carcinoma in situ of breast 04/29/2025 Secondary hyperparathyroidism 03/23/2023 Anemia in chronic kidney disease 03/23/2023 Chronic kidney disease, stage 4 (severe) 023 Chronic kidney disease stage 3 11/20/2019 Essential hypertension 11/20/2019 Hyperlipidemia 11/20/2019 Proteinuria 11/20/2019 Type 2 diabetes mellitus without complication Encounters Date Type Department Care Team Description 09/02/2025 3:00 PM EDT Office Visit [facility] Vascular Access [address] [place] [address] Edward Santos MD Chronic kidney disease, stage 4 (severe) (HCC) (Primary Dx) 08/31/2025 Orders Only [facility] Of [address] [place] [address] Elidia Cruz [place] Stage 5 chronic kidney disease (HCC) (Primary Dx); Persistent proteinuria; Type 2 diabetes mellitus with diabetic chronic kidney disease, 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); Anemia in chronic kidney disease; Secondary hyperparathyroidism (HCC); Hypertension; Albuminuria, not otherwise specified 08/18/2025 Telephone [facility] Vascular [address] [place] [address] 08/17/2025 10:00 AM EDT Procedure visit [facility] Vascular Access [address] [place] [address] Edward Santos MD Stage 5 chronic kidney disease (HCC) (Primary Dx) 08/13/2025 9:30 AM EDT Office Visit [facility] Vascular [address] [place] [address] Edward Santos MD Chronic kidney disease, stage 4 (severe) (HCC) (Primary Dx) 08/04/2025 Refill [facility] [place] [facility] [address] [place] [address] Abiel Gross MD 07/30/2025 1:00 PM EDT Procedure visit [facility] Vascular [address] [place] [address] Nitish Rosa MD Chronic kidney disease, stage 4 (severe) (HCC) (Primary Dx); 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, initial encounter (HCC) 07/28/2025 Telephone [facility] [address] [place] [address] 07/22/2025 Documentation Only [facility] Of [address] [place] [address] Elidia Cruz MA 07/22/2025 Documentation Only [facility] [address] [place] [address] Elidia Cruz MA 07/17/2025 11:30 AM EDT Office Visit [facility] Of [address] [place] [address] Vineet Jimenez MD Chronic kidney disease, stage 4 (severe) (HCC) (Primary Dx) 07/17/2025 Documentation Only [facility] [address] [place] [address] Elidia Cruz MA 07/15/2025 Telephone [facility] Of [address] [place] [address] 06/18/2025 10:00 AM EDT Office Visit [facility] Of [address] [place] [address] Gus Umanzor MD Stage 5 chronic kidney disease (HCC) (Primary Dx) from Last 3 Months Immunizations Immunization Administration [...] Mass Index 36.28 08/17/2025 9:07 AM EDT Plan of Treatment Upcoming Encounters Date Type Department Care Team (Late st Contact Info) Description 09/11/2025 1:00 PM EDT Procedure visit [facility] Vascular Access Center [address] [place] [address] [place] [address] 09/14/2025 3:30 PM EDT Office Visit [facility] Of [address] [place] [address] Abiel Gross MD [address] [place] [address] [place] [address] Health Maintenance Due Date Last Done Comments Diabetes: Ophthalmology Exam 11/20/2019 Diabetes: Pedal Pulse Checked 11/20/2019 Diabetes: Sensory Foot Exam 11/20/2019 Diabetes: Visual Foot Exam 11/20/2019 Diabetes: Hemoglobin A1C 11/27/2025 025, 03/19/2025, 12/04/2024, Additional history exists Pneumococcal Vaccine: 50+ Years Completed 06/27/2023, 09/17/2019, 08/01/2018, Additional history exists Pneumococcal Vaccine: Peds (0 to 5 Years) and At-Risk Patients (6 to 49 Years) Discontinued 06/27/2023, 09/17/2019, 08/01/2018, Additional history exists Hepatitis B Vaccine Aged Out 10/01/2023, 04/27/2023, 03/30/2023 No longer eligible based on patient's age to complete this topic Influenza Vaccine Completed 09/01/2025, , 11/09/2022, Additional history exists Procedures Procedure Name Priority Date/Time Associated Diagnosis Comments POTASSIUM Routine 07/17/2025 HEMOGLOBIN A1C Routine 05/16/2021 4:21 PM EDT Other proteinuria Chronic kidney disease, stage 4 (severe) (HCC) Type 2 diabetes mellitus without complication (HCC) from Last 3 Months or Most Recently Relevant to Health Maintenance Results * Potassium (07/17/2025) Potassium 3.9 mEq/L Blood Venous blood / Unknown 07/17/2025 Historical Provider LAB BLOOD ORDERABLES Coral l Result * (ABNORMAL) Hemoglobin A1c (05/16/2021 4:21 PM EDT) Hemoglobin A1C 9.2(H) (4.0-5.6) % [facility] Comment: MONITORING: In known diabetic patients, hemoglobin A1c targets should be discussed with health care provider. DIAGNOSTIC USE: The [place] Diabetes [employer] (ADA) and the World Health [...] Supplement 1 Testing performed or reported by [facility], a Service of [facility], [address] [place] [id number] Geetha Meléndez MD, Assistant Casino Shift Manager Blood specimen (specimen) Venous blood / Unknown 05/16/2021 4:21 PM EDT 05/16/2021 4:26 PM EDT Abiel Gross MD LAB BLOOD ORDERABLES Final Result [facility] from Last 3 Months or Most Recently Relevant to Health Maintenance Insurance [facility] Dual SNP ([id number]) [place] [id number] Care Teams Photoresist Contact Printer Relationship Specialty Start Date End Date Name, MD Royal [address] [place] [address] PCP - General 09/23/19
--- OUTSIDE RECORDS SUMMARY | 2025-09-04 11:18 | XMS_ITS | Encounter Summary ---
Author Organization [facility] [place], Address [address] [place] [address] Phone Care Team Providers Care Electronics Computer Mechanic Name Role Phone Name, Royal BEATTY Primary Care Provider [phone] Encounter Details Date Type Department Care Team (Late Contact Info) Description 06/01/2025 Documentation Only [facility] Vascular Access Center [address] [place] [address] [place] [phone] Dulce Maria Painting [address] [place] [address] [place] [phone] Social History Tobacco Use Types Packs/Day Years [...] visit [facility] Vascular Access [address] [place] [phone] 09/14/2025 3:30 PM EDT Office Visit [facility] Of [address] [place] [phone] Abiel Gross MD [address] [place] [address] documented as of this encounter Visit Diagnoses Not on filedocumented in this encounter Care Teams Electronics Computer Mechanic Relationship Specialty Start Date End Date Name, MD Royal [address] [place] [address] PCP - General 09/23/19 documented as of this encounter
--- OUTSIDE RECORDS SUMMARY | 2025-09-04 11:18 | XMS_ITS | Encounter Summary ---
Author Organization [facility] [place], Address [address] [address] Phone Care Team Providers Care Assistant Broker Name Role Phone Name, Royal BEATTY Primary Care Provider Reason for Visit * Reason Comments Med Refill Encounter Details Date Type Department Care Team ([facility] Contact Info) Description 11/06/2022 Refill [facility] [address] [place] [address] Abiel Gross MD [address] [place] [address] [place] [address] Social History Tobacco Use Types Packs/Day Years [...] [facility] Contact Info) Description 09/11/2025 1:00 PM EDT Procedure visit [facility] Vascular Access Center [address] [place] [address] [place] [address] 09/14/2025 3:30 PM EDT Office Visit [facility] Of [address] [place] [address] Abiel Gross MD [address] [place] [address] documented as of this encounter Visit Diagnoses Not on filedocumented in this encounter Care Teams Assistant Broker Relationship Specialty Start Date End Date Name, MD Royal [address] [place] [address] PCP - General 09/23/19 documented as of this encounter
--- OUTSIDE RECORDS SUMMARY | 2025-09-04 11:18 | XMS_ITS | Encounter Summary ---
Author Organization [employer] Address [address] [facility] 7t [place] [address] Care Team Providers Care Flow Match Sofa Cutter Name Role Phone Name, Royal BEATTY Primary Care Provider Madhuri Becker PharmD Unavailable [phone] Reason for Visit * Reason Comments Med Refill Encounter Details Date Type Department Care Team ([facility] Contact Info) Description 08/14/2025 Refill [facility] WALK-IN CENTER [address] [place] [address] Remedios Marquis DO [address] [place] [address] Social History Tobacco Use Types Packs/Day Years [...] Description 09/28/2025 10:30 AM EST Office Visit [facility] OPTOMETRY [address] [place] [address] Aneesh, Meli, OD 230 [place] [address] 09/30/2025 10:00 AM EST Medication Management [facility] MEDICINE [address] [place] [address] Puia, Madhuri, PharmD [address] [place] [address] documented as of this encounter Goals Goal Patient Goal Type Associated Problems Recent Progress Patient-Stated? Author Hemoglobin A1c < 8 Result Component 8.7( 11:59 AM EDT) No Puia, Madhuri, PharmD Record [...] documented as of this encounter Care Teams Flow Match Sofa Cutter Relationship Specialty Start Date End Date Name, MD Royal [address] [place] [address] PCP - General Family Medicine 06/16/19 Madhuri Becker, Jazzmine [address] [place] [address] Pharmacist Internal Medicine 03/19/23 documented as of this encounter
--- OUTSIDE RECORDS SUMMARY | 2025-09-04 11:18 | XMS_ITS | Encounter Summary ---
Author Organization [employer] Address [address] [facility] [address] [place] [address] Care Team Providers Care Marine Design Engineer Name Role Phone Name, Royal BEATTY Primary Care Provider [phone] Madhuri Becker PharmD Unavailable [phone] Encounter Details Date Type Department Care Team (Late Contact Info) Description 01/29/2023 Orders Only [facility] [address] [place], [place] [phone] Remedios Rider LPN Social History Tobacco Use [...] Description 09/28/2025 10:30 AM EST Office Visit [facility] OPTOMETRY [address] [place] [address] Meli Melendrez, OD 230 [place] [address] 09/30/2025 10:00 AM EST Medication Management [facility] MEDICINE [address] [place] [address] PuiaHumbertoMadhuri, PharmD [address] [place] [address] documented as of this encounter Visit Diagnoses Not on filedocumented in this encounter Additional Health Concerns Assessment Noted Time PHQ-9 Depression Total Score: 0 11/09/20 22 11:52 AM EST documented as of this encounter Care Teams Marine Design Engineer Relationship Specialty Start Date End Date Name, MD Royal [address] [place] [address] PCP - General Family Medicine 06/16/19 Madhuri Becker PharmD [address] [place] [address] Pharmacist Internal Medicine 03/19/23 documented as of this encounter
--- OUTSIDE RECORDS SUMMARY | 2025-09-04 11:18 | XMS_ITS | Encounter Summary ---
Author Organization [employer] Address [address] [facility] 7t [place] [address] Care Team Providers Care Air Commodore Name Role Phone Name, Royal BEATTY Primary Care Provider [phone] Madhuri Becker PharmD Unavailable [phone] Reason for Visit * Reason Comments Med Refill Encounter Details Date Type Department Care Team ([facility] Contact Info) Description 05/02/2024 Refill [facility] WALK-IN CENTER [address] [place] [address] Zechariah Bernabe MD [address] [place] [address] Social History Tobacco Use Types Packs/Day Years [...] Description 09/28/2025 10:30 AM EST Office Visit [facility] OPTOMETRY [address] [place] [address] Aneesh, Meli, OD [address] [place] [address] 09/30/2025 10:00 AM EST Medication Management [facility] MEDICINE [address] [place] [address] PuiaHumbertoMadhuri, PharmD [address] [place] [address] documented as of this encounter Goals Goal [...] as of this encounter Care Teams Air Commodore Relationship Specialty Start Date End Date Name, MD Royal [address] [place] [address] PCP - General Family Medicine 06/16/19 Madhuri Becker, Jazzmine [address] [place] [address] Pharmacist Internal Medicine 03/19/23 documented as of this encounter
--- OUTSIDE RECORDS SUMMARY | 2025-09-04 11:18 | XMS_ITS | Encounter Summary ---
Author Organization [employer] Address [address] [facility] 7t [place] [address] Care Team Providers Care Apparatus Repair Mechanic Name Role Phone Name, Royal BEATTY Primary Care Provider [phone] aMdhuri Becker PharmD Unavailable [phone] Reason for Visit * Reason Comments Med Refill Encounter Details Date Type Department Care Team ([facility] Contact Info) Description 05/31/2023 Refill [facility] MEDICINE [address] [place] [address] Name, MD Royal [address] [place] [address] Social History Tobacco Use Types Packs/Day Years [...] Care Team ([facility] Contact Info) Description 09/28/2025 10:30 AM EST Office Visit [facility] OPTOMETRY [address] [place] [address] Meli Melendrez, OD 230 [place], [place] [phone] 09/30/2025 10:00 AM EST Medication Management [facility] MEDICINE [address] [place], [place] [phone] Madhuri Becker PharmD [address] [place], [place] [phone] documented as of this encounter Goals Goal [...] documented as of this encounter Care Teams Apparatus Repair Mechanic Relationship Specialty Start Date End Date Name, MD Royal [address] [place] [address] [phone] PCP - General Family Medicine 06/16/19 Madhuri Becker PharmD [address] [place] [phone] Pharmacist Internal Medicine 03/19/23 documented as of this encounter
--- OUTSIDE RECORDS SUMMARY | 2025-09-04 11:18 | XMS_ITS | Encounter Summary ---
Author Organization [employer] Address [address] [facility] 7t [place] [address] Care Team Providers Care Hand Crown Pouncer Name Role Phone Name, Royal BEATTY Primary Care Provider [phone] Madhuri Becker PharmD Unavailable [phone] Reason for Visit * Reason Comments Med Refill Encounter Details Date Type Department Care Team ([facility] Contact Info) Description 05/19/2024 Refill [facility] MEDICINE [address] [place] [address] Maryan Vasquez MD [address] [place] [address] Social History Tobacco Use Types Packs/Day Years [...] Description 09/28/2025 10:30 AM EST Office Visit [facility] OPTOMETRY [address] [place] [address] Aneesh, Meli, OD 230 [place] [address] 09/30/2025 10:00 AM EST Medication Management [facility] MEDICINE [address] [place] [address] PuiaHumbertoMadhuri, PharmD [address] [place] [address] documented as of this encounter Goals Goal [...] documented as of this encounter Care Teams Hand Crown Pouncer Relationship Specialty Start Date End Date Name, MD Royal [address] [place] [address] PCP - General Family Medicine 06/16/19 Madhuri Becker, Jazzmine [address] [place] [address] Pharmacist Internal Medicine 03/19/23 documented as of this encounter
--- OUTSIDE RECORDS SUMMARY | 2025-09-04 11:18 | XMS_ITS | Encounter Summary ---
Author Organization [employer] Address 75 [facility] 7t [place] [address] Care Team Providers Care Telephone Sex Worker Name Role Phone Name, Royal [place] Primary Care Provider [phone] Madhuri Becker PharmD Unavailable [phone] Encounter Details Date Type Department Care Team (Latest Contact Info) Description 09/01/2025 Travel Social History Tobacco Use Types Packs/Day Years Used Date Smoking Tobacco: Former Cigarettes Passive Smoke Exposure: Past Smokeless Tobacco: Never Alcohol Use Standard Drinks/Week [...] Description 09/28/2025 10:30 AM EST Office Visit [facility] OPTOMETRY [address] [place] [address] Aneesh, Meli, OD [address] [place] [address] 09/30/2025 10:00 AM EST Medication Management [facility] MEDICINE [address] [place] [address] Puia, Madhuri, PharmD [address] [place] [address] documented as of this encounter Goals Goal [...] documented as of this encounter Care Teams Telephone Sex Worker Relationship Specialty Start Date End Date Name, MD Royal [address] [place] [address] PCP - General Family Medicine 06/16/19 Madhuri Becker, Jazzmine [address] [place] [address] Pharmacist Internal Medicine 03/19/23 documented as of this encounter
--- OUTSIDE RECORDS SUMMARY | 2025-09-04 11:18 | XMS_ITS | Encounter Summary ---
Author Organization [employer] Address 75 [facility] 7t [place] [address] Care Team Providers Care Counter Former Name Role Phone Name, Royal [place] Primary Care Provider [phone] Madhuri Becker PharmD Unavailable [phone] Reason for Visit * Reason Comments Med Refill Encounter Details Date Type Department Care Team ([facility] Contact Info) Description 02/28/2025 Refill [facility] MEDICINE [address] [place] [address] Name, MD Royal [address] [place] [address] Social History Tobacco Use Types Packs/Day Years [...] Description 09/28/2025 10:30 AM EST Office Visit [facility] OPTOMETRY [address] [place] [address] Aneesh, Meli, OD [address] [place] [address] 09/30/2025 10:00 AM EST Medication Management [facility] MEDICINE [address] [place] [address] Puia, Madhuri, PharmD [address] [place] [address] documented as of this encounter Goals Goal [...] documented as of this encounter Care Teams Counter Former Relationship Specialty Start Date End Date Name, MD Royal [address] [place] [address] PCP - General Family Medicine 06/16/19 Madhuri Becker PharmD [address] [place] [address] Pharmacist Internal Medicine 03/19/23 documented as of this encounter
--- OUTSIDE RECORDS SUMMARY | 2025-09-04 11:18 | XMS_ITS | Encounter Summary ---
Author Organization [facility] Address [address] [address] Phone Care Team Providers Care Shell Reprint Operator Name Role Phone Name, Royal [place] Primary Care Provider [phone] Reason for Visit * Reason Comments Med Refill Encounter Details Date Type Department Care Team (Late Contact Info) Description 03/24/2024 Refill [facility] [address] [place] [phone] Abiel Gross MD [address] [place] [address] [place] [phone] Social History Tobacco Use Types Packs/Day Years [...] visit [facility] [address] [place] [address] [place] [phone] 09/14/2025 3:30 PM EDT Office Visit [facility] [address] [place] [address] Abiel Gross MD [id number] [place] [address] documented as of this encounter Visit Diagnoses Not on filedocumented in this encounter Care Teams Shell Reprint Operator Relationship Specialty Start Date End Date Name, MD Royal [address] [place] [address] PCP - General 09/23/19 documented as of this encounter
--- OUTSIDE RECORDS SUMMARY | 2025-09-04 11:18 | XMS_ITS | Clinical Summary ---
Author Organization [employer] Address 75 [facility] 7t [place] [address] Care Team Providers Care Program Project Analyst Name Role Phone Name, Royal [place] Primary Care Provider [phone] Madhuri Becker PharmD Unavailable Allergies No known [...] 4 due to type 2 diabetes mellitus (HCC) TAKE 1 TABLET BY MOUTH TWICE DAILY [...] MORNING 90 tablet 3 12/30/19 25 Active Continuous Glucose Audit Practice Intern (FoodBox Zoraida 3 Dillon) device 1 each Once per day. Use as directed for CGM 1 each 02/05/20 25 Active Continuous Glucose Sensor (FreeStyle Zoraida 3 Plus Sensor) mis Apply 1 every 15 days as directed for CGM 2 each 02/05/20 25 Active glucose blood (FreeStyle Precision Balaji Test) test stripIndication s:Type 2 diabetes mellitus with stage 4 chronic kidney disease, with long-term current use of insulin ([facility]) Use to test blood sugar up to 3 times daily, as directed 100 each 02/05/20 25 Active gabapentin (Neurontin) 100 MG capsule TAKE 1 CAPSULE BY MOUTH AT BEDTIME 30 capsule 5 03/19/20 25 Active Breo Ellipta 100-25 MCG/ACT aerosol powder 03/13/20 25 Active omeprazole (PriLOSEC) [address] capsule TAKE 1 CAPSULE BY MOUTH EVERY MORNING 30-60 MINUTES BEFORE A MEAL 90 capsule 04/10/20 25 Active glucose 4 g chewable tabletIndicatio ns:Type 2 diabetes mellitus with stage 4 chronic kidney disease, with long-term current use of insulin ([facility]) Chew 4 tablets (16 g) if [...] evening, and at bedtime (pain). 150 g 3 05/08/20 25 Active rosuvastatin (Crestor) 10 MG tabletIndicatio ns:Essential hypertension TAKE 1 TABLET BY MOUTH EVERY MORNING 90 tablet 06/05/20 25 Active amLODIPine (Norvasc) 2.5 MG tabletIndicatio ns:Essential hypertension TAKE 1 TABLET BY MOUTH EVERY MORNING 90 tablet 06/05/20 25 Active TRUEplus Lancets 33G miscIndications :Type 2 diabetes mellitus with stage 4 chronic kidney disease, with long-term current use of insulin ([facility]) USE DIRECTED TO TEST BLOOD SUGAR THREE TIMES DAILY 100 each 06/17/20 25 Active acetaminophen (Tylenol 8 Hour) 650 MG ER tablet TAKE 1 TABLET BY MOUTH EVERY 8 HOURS NEEDED FOR MILD PAIN, DO NOT BREAK, CRUSH, DISSOLVE OR CHEW 60 tablet 1 06/25/20 25 Active Pauline-Dryl 25 MG tabletIndicatio ns:Generalized pruritus TAKE 1 TABLET BY MOUTH AT BEDTIME NEEDED FOR SLEEP 30 tablet 5 07/06/20 25 Active losartan (Cozaar) 100 MG tablet TAKE 1 TABLET BY MOUTH EVERY MORNING 30 tablet 5 08/07/20 25 Active insulin degludec (Tresiba FlexTouch) 200 UNIT/ML injection Inject 10 Units under the skin in the morning. 9 mL 1 08/27/20 25 Active insulin pen needle (BD Pen Needle Rachele U/F) 32G x 4 mm miscIndications :Type 2 diabetes mellitus with stage 4 chronic kidney disease, with long-term current use of insulin (HCC) Use to inject insulin once daily 100 each 3 08/27/20 25 Active loratadine (Claritin) 10 MG tablet Take 1 tablet (10 mg) by mouth Once per day. 30 tablet 11 09/01/20 25 026 Active losartan (Cozaar) 100 MG tablet TAKE 1 TABLET BY MOUTH EVERY MORNING 30 tablet 5 01/27/20 25 025 Discontinued BD Pen Needle Rachele U/F 32G X 4 MM miscIndications :Type 2 diabetes mellitus with stage 4 chronic kidney disease, with long-term current use of insulin (HCC) USE UP TO THREE TIMES DAILY FOR INSULIN 100 each 5 03/04/20 25 025 Discontinued(Re order (will not trigger notification to Pharmacy)) Active Problems Problem Noted Date Diagnosed Date [...] neoplasm of breast 11/01/20 22 Proteinuria 11/20/2019 Polyneuropathy 04/24/2019 Dry eyes 11/01/2018 Trigger finger 11/01/2018 Adnexal fullness 08/01/2018 Overview (06/04/2023): Finding of pelvis- adnexal fullness per previous EHR Chronic cough 04/30/2018 Generalized pruritus 04/30/2018 Microscopic hematuria 04/30/2018 Palpitations 04/30/2018 Mitral valve stenosis 03/31/2018 CKD stage 5 due to type 2 diabetes mellitus 11/2017 Acquired hypothyroidism 02/11/2018 Diabetic retinopathy associa yareli with type 2 diabetes mellitus 02/11/2018 Essential hypertension 02/11/2018 Hyperlipidemia 02/11/2018 Osteoporosis 02/11/2018 Proteinuria of undiagnosed cause 02/11/2018 Resolved Problems Problem Noted Date Diagnosed Date Resolved Date Type 2 diabetes mellitus without complication 11/20/19 20 08/31/2023 09/01/2025 Type 2 diabetes mellitus 11/01/2018 Encounters Date Type Department Care Team Description 09/02/2025 Telephone [facility] MEDICINE [address] [place] [address] NameRoyal MD Durable Medical Equipment 09/01/2025 10:45 AM EDT Office Visit [facility] MEDICINE [address] [place] [address] Royal Pitt MD Type 2 diabetes mellitus with stage 5 chronic kidney disease not on chronic dialysis, with long-term current use of insulin (HCC) (Primary Dx); Generalized pruritus; Chronic bilateral low back pain with left-sided sciatica; Encounter for immunization 09/01/2025 Travel 08/27/2025 Travel 08/14/2025 Refill [facility] WALK-IN CENTER [address] [place], [place] [phone] Remedios Marquis DO 08/07/2025 Refill [facility] MEDICINE [address] [place], [place] [phone] Royal Pitt MD 07/10/2025 Telephone [facility] MEDICINE [address] [place], [place] [phone] Royal Pitt MD 07/04/2025 Refill [facility] MEDICINE [address] [place] [address] Royal Pitt MD Generalized pruritus 07/01/2025 Telephone [facility] MEDICINE [address] [place] [address] Royal Pitt MD Appointment Confirmation 06/24/2025 Telephone [facility] MEDICINE [address] [place] [address] Maikel Casiano [place] july recalls 06/24/2025 Refill [facility] WALK-IN CENTER [address] [place] [address] Remedios Marquis DO 06/17/2025 Refill [facility] MEDICINE [address] [place] [address] Royal Pitt MD Type 2 diabetes mellitus with stage 4 chronic kidney disease, with long-term current use of insulin ([facility]) 06/10/2025 Telephone [facility] MEDICINE [address] [place] [address] Remedios Marquis DO Ortho Appointment 06/05/2025 Refill [facility] MEDICINE [address] [place] [address] Royal Pitt MD Essential hypertension 06/05/2025 Refill [facility] MEDICINE [address] [place] [address] [facility] Essential hypertension from Last 3 Months Immunizations Immunization Administration Dates Next Due Hep B, adult 10/01/2023,04/27/2023,03/30/2023 Influenza High-dose Quadriva lent Preservative Free 08/31/2023,09/20/2021 Influenza injectable quadriv alent IIV4 with preservative 11/09/2022 Influenza injectable quadriv alent preservative free 11/01/2018 Influenza, High Dose Seasona l, Preservative Free 09/01/2025,07/28/2024,09/17/2019 Moderna Covid-19 Vaccine 6+ Bivalent 03/30/2023 Pfizer [...] Mass Index 33.36 09/01/2025 11:03 AM EDT Plan of Treatment Upcoming Encounters Date Type Department Care Team (Late st Contact Info) Description 09/28/2025 10:30 AM EST Office Visit [facility] OPTOMETRY [address] [place] [address] Aneesh, Meli, OD [address] [place] [address] 09/30/2025 10:00 AM EST Medication Management [facility] MEDICINE [address] [place] [address] Madhuri Becker, PharmD [address] [place] [address] Health Maintenance Due Date Last Done Comments Hepatitis C Screening 1963 Diabetes: Foot Exam 08/31/2024 08/31/2023, 08/31/2023, 08/31/2023, Additional history exists Lipid Panel 05/15/2025 05/15/2024, 07/2023, 06/27/2022 COVID-19 Vaccine ( season) 2025 08/25/2024, 03/30/2023, 02/07/2022, Additional history exists Eye Exam 07/24/2025 07/24/2024, 03/2024, 07/24/2024, Additional history exists Mammogram 08/29/2025 08/29/2024, 02/2023, 08/22/2023, Additional history exists Diabetes: Hemoglobin A1C 11/27/2025 025, 03/19/2025, 12/04/2024, Additional history exists Depression Screening 04/16/2026 04/16/2025, 04/16/20 25 SDOH Screening 04/16/2026 04/16/2025 Alcohol/Substance Use Screening 09/01/2026 09/01/2025 Tobacco Screening 09/01/2026 09/01/2025 DTaP/Tdap/Td Vaccines (2 - Td or Tdap) 01/18/2030 01/19/2020 Zoster Vaccines Completed 05/28/2023, 11/2022, 08/01/2018 Pneumococcal Vaccine: 50+ Years Completed 06/27/2023, 09/17/2019, 08/01/2018, Additional history exists Hepatitis B Vaccines Completed 10/01/2023, 04/27/2023, 03/30/2023 RSV Patients and Patients Aged 60 years or older Completed 07/28/2024 Influenza Vaccine Completed 09/01/2025, , 08/31/2023, Additional history exists HIB Vaccines Aged Out [...] Component 8.7( 11:59 AM EDT) No Madhuri Becker, PharmD [...] dialysis, with long-term current use of insulin ([facility]) POCT GLYCATED HEMOGLOBIN, TOTAL Routine 08/27/2025 11:59 AM EDT Type 2 diabetes mellitus with stage 4 chronic kidney disease, with long-term current use of insulin ([facility]) BI MAMMOGRAM SCREENING TOMOSYNTHESIS LEFT Routine 08/29/2024 9:45 AM EDT LIPID PANEL, STANDARD Routine 05/15/2024 9:10 AM EDT Type 2 diabetes mellitus with stage 4 chronic kidney disease, with long-term current use of insulin ([facility]) Acute non-recurrent maxillary sinusitis Chronic kidney disease, stage 4 (severe) ([facility]) from Last 3 Months or Most Recently Relevant to Health Maintenance Results * POCT Glucose (09/01/2025 11:04 AM EDT) Pathologist [facility] Glucose Blood, POC 163 60 - 200 mg/dL QC Media Lot # [id number] Lot# Expiration Date 3836 Blood Capillary blood specimen / Unknown 09/01/2025 11:04 AM EDT us Royal Pitt MD POINT OF CARE TEST ENTER/EDIT OR DERABLES Final Result * (ABNORMAL) POCT Hgb A1c (08/27/2025 11:59 AM EDT) Hemoglobin A1C 8.7(A) 4.0 - 5.7 % Blood 08/27/2025 11:5 9 AM EDT us Royal Pitt MD POINT OF CARE TEST ENTER/EDIT OR DERABLES Final Result * BI Mammogram Screening Tomosynthesis Left (08/29/2024 9:45 AM EDT) Anatomical Region Laterality Modality Breast Left Mammography 08/29/2024 9:45 AM EDT Narrative 09/09/2024 4:59 PM EDT [facility] [address] [place] [address] Mammography Report Signed Patient: Luz Elena [place] MR#: [id number] : 1945 Acct:[id number] Age/Sex: 79 / F ADM Date: 08/29/24 Loc: HO.MAMMO Attending Dr: Royal Pitt MD Ordering Physician: Royal Pitt MD Results: 1Negative Date of Service: 08/29/24 Follow Up: 1 Year From [facility] Mammogram Procedure(s): MM tomosynthesis screening LT Accession Number(s): [id number] cc: Royal Pitt MD EXAMINATION: MM SCREENING [...] Douglas DO in OV> 09/09/24 1657 DD/ 4 TD/TT: 08/29/24954 Heavy Equipment Diesel Mechanic: Procedure Note Donotuseinterpreter, Image - 09/09/2024 [facility] [address] [place] [address] Dr. [place], [place] [address] Mammography Report Signed Patient: Luz Elena Montgomery AMR#: [id number] : 6Acct:[id number] Age/Sex: 79 / FADM Date: 08/29/24 Loc: HO.MAMMO Attending Dr: Royal Pitt MD Ordering Physician: Royal Pitt MDResults: 1Negative Date of Service: 08/29/24Follow Up: 1 Year From Orig inal Mammogram Procedure(s): MM tomosynthesis screening LT Accession Number(s): [id number] cc: Royal Pitt MD EXAMINATION: MM SCREENING [...] Douglas DO in OV> 09/09/24 1657 DD/ 4 TD/TT: 08/29/24954 Heavy Equipment Diesel Mechanic: us Royal Pitt MD IMG BI PROCEDURES Final Result * (ABNORMAL) Lipid Panel, Standard (05/15/2024 9:10 AM EDT) Triglycerides 170(H) <150 mg/dL [facility] Comment:Desirable Triglyceri de: less than 150 mg/dLBorderline High Triglyceride 150-199 mg/dLHigh Triglyceride: 200-499 mg/dLVery High Triglyceride: greater than or equal to 5OO mg/dL Cholesterol 122 <200 mg/dL [facility] Comment:Desirable Cholestero l: less than 200 mg/dLBorderline High Cholesterol: 200-239 mg/dLHigh Cholesterol: greater than 239 mg/dL LDL Cholesterol Calculated 48 <100 mg/dL [facility] Comment:Desirable LDL: less than 100 mg/dLNear Optimal/Above Optimal LDL: 110- 129 mg/dLBorderline High LDL: 130-159 mg/dLHigh LDL: 160-189 mg/dLVery High LDL: greater than or equal to 190 mg/dL HDL Cholesterol 40(L) >40 mg/dL [facility] Comment:Desirable HDL: great er than 40 mg/dL Note: This HDL assay may give artificially low results in patients with liver disease. Blood Venous blood specimen / Unknown 05/15/2024 9:10 AM EDT 05/15/2024 11:17 AM EDT us Royal Pitt MD LAB BLOOD ORDERABLES Final Resul t [facility] [address] [place] [phone] from Last 3 Months or Most Recently Relevant to Health Maintenance Insurance [employer] OPT[employer] (HMO D-SNP) [facility] STANDARD Care Teams Program Project Analyst Relationship Specialty Start Date End Date Name, MD Royal [address] [place] [address] PCP - General Family Medicine 06/16/19 Madhuri Becker PharmD [address] [place] [address] Pharmacist Internal Medicine 03/19/23
--- OUTSIDE RECORDS SUMMARY | 2025-09-04 11:18 | XMS_ITS | Encounter Summary ---
Author Organization [employer] Address 75 [facility] 7t [place] [address] Care Team Providers Care Precipitator Name Role Phone Name, Royal [place] Primary Care Provider [phone] Madhuri Becker PharmD Unavailable [phone] Reason for Visit * Reason Comments Med Refill Encounter Details Date Type Department Care Team ([facility] Contact Info) Description 04/25/2024 Refill [facility] MEDICINE [address] [place] [address] Madhuri Becker, PharmD [address] [place] [address] Type 2 diabetes mellitus with stage 4 chronic kidney disease, with long-term current use of insulin ([facility]) Social History Tobacco Use Types Packs/Day [...] Description 09/28/2025 10:30 AM EST Office Visit [facility] OPTOMETRY [address] [place] [address] Aneesh, Meli, OD [address] [place] [address] 09/30/2025 10:00 AM EST Medication Management [facility] MEDICINE [address] [place] [address] Madhuri Becker, PharmD [address] [place] [address] documented as of this encounter Goals Goal Patient Goal Type Associated Problems Recent Progress Patient-Stated? Author Hemoglobin A1c < 8 Result Component 8.7( 11:59 AM EDT) No Puia Madhuri, PharmD Record [...] of insulin (HCC) documented in this encounter Additional Health Concerns Assessment Noted Time PHQ-9 Depression Total Score: 0 03/11/20 24 2:52 PM EDT documented as of this encounter Care Teams Precipitator Relationship Specialty Start Date End Date Name, MD Royal [address] [place] [address] PCP - General Family Medicine 06/16/19 Madhuri Becker PharmD [address] [place] [address] Pharmacist Internal Medicine 03/19/23 documented as of this encounter
--- OUTSIDE RECORDS SUMMARY | 2025-09-04 11:18 | XMS_ITS | Encounter Summary ---
Author Organization [employer] Address 75 [facility] 7t [place] [address] Care Team Providers Care Bliss Press Operator Name Role Phone Name, Royal [place] Primary Care Provider [phone] Madhuri Becker PharmD Unavailable [phone] Reason for Visit * Reason Onset Date Comments Created In Error 07/30/2024 Encounter Details Date Type Department Care Team ([facility] Contact Info) Description 07/30/2024 Telephone [facility] MEDICINE [address] [place] [address] Name, MD Royal [address] [place] [address] Created In Error Social History Tobacco Use [...] 09/28/2025 10:30 AM EST Office Visit [facility] OPTOMETRY [address] [place] [address] Aneesh, Meli, OD [address] [place] [address] 09/30/2025 10:00 AM EST Medication Management [facility] MEDICINE [address] [place] [address] PuiaMadhuri, PharmD [address] [place] [address] documented as of this encounter Goals Goal [...] documented as of this encounter Care Teams Bliss Press Operator Relationship Specialty Start Date End Date Name, MD Royal [address] [place] [address] PCP - General Family Medicine 06/16/19 Madhuri Becker, Jazzmine [address] [place] [address] Pharmacist Internal Medicine 03/19/23 documented as of this encounter
--- OUTSIDE RECORDS SUMMARY | 2025-09-04 11:18 | XMS_ITS | Encounter Summary ---
Author Organization [facility] Address [address] [place] [address] Phone Care Team Providers Care Scrub Technician Name Role Phone Name, Royal [place] Primary Care Provider [phone] Encounter Details Date Type Department Care Team (Late Contact Info) Description 03/20/2025 Documentation Only [facility] [address] [place] [phone] [place] [address] [place] [phone] Social History Tobacco Use Types Packs/Day [...] visit [facility] [address] [place] [place] [phone] 09/14/2025 3:30 PM EDT Office Visit [facility] [address] [place] [address] Abiel Gross MD [address] [place] [address] documented as of this encounter Visit Diagnoses Not on filedocumented in this encounter Care Teams Scrub Technician Relationship Specialty Start Date End Date Name, MD Royal [address] [place] [id number] PCP - General 09/23/19 documented as of this encounter
--- OUTSIDE RECORDS SUMMARY | 2025-09-04 11:18 | XMS_ITS | Encounter Summary ---
Author Organization [facility] Address [address] [place] [address] Phone Care Team Providers Care Automation Qtp Tester Name Role Phone Name, Royal [place] Primary Care Provider [phone] Encounter Details Date Type Department Care Team (Late Contact Info) Description 03/03/2025 Documentation Only [facility] [address] [place] [phone] [place] [address] [place] [phone] Social History Tobacco Use Types Packs/Day [...] visit [facility] [address] [place] [place] [phone] 09/14/2025 3:30 PM EDT Office Visit [facility] [address] [place] [phone] Abiel Gross MD [address] [place] [address] documented as of this encounter Visit Diagnoses Not on filedocumented in this encounter Care Teams Automation Qtp Tester Relationship Specialty Start Date End Date Name, MD Royal [address] [place] [phone] PCP - General 09/23/19 documented as of this encounter
--- OUTSIDE RECORDS SUMMARY | 2025-09-04 11:18 | XMS_ITS | Encounter Summary ---
Author Organization [employer] Address [address] [facility] 7t [place] [address] Care Team Providers Care Warehouse Receiving Clerk Name Role Phone Name, Royal BEATTY Primary Care Provider [phone] Madhuri Becker PharmD Unavailable [phone] Reason for Visit * Reason Onset Date Comments Durable Medical Equipment 09/02/2025 Encounter Details Date Type Department Care Team ([facility] st Contact Info) Description 09/02/2025 Telephone [facility] MEDICINE [address] [place] [address] Name, MD Royal [address] [place] [address] Durable Medical Equipment Social History Tobacco Use Types Packs/Day Years [...] encounter Miscellaneous Notes * Telephone Encounter - Maggie Elaine - 09/02/2025 2:03 PM EDT Rx for lift recliner and shower chair generated and faxed to [facility]. Confirmation received and sent to scan. If pt calls for status, please advise to call [facility] personal care assistant. * Telephone Encounter - Maggie Elaine - 09/02/2025 2:03 PM EDT ----- Message from Royal Pitt MD sent at 09/01/2025 1:00 PM EDT ----- Hi, this patient needs a shower chair and a lift recliner. She has CCA documented in this encounter Plan of Treatment Upcoming Encounters Date Type Department Care Team (Late st Contact Info) Description 09/28/2025 10:30 AM EST Office Visit [facility] OPTOMETRY [address] [place] [address] Aneesh, Meli, OD [address] [place] [address] 09/30/2025 10:00 AM EST Medication Management [facility] MEDICINE [address] [place] [address] Madhuri Becker PharmD [address] [place] [address] documented as of this encounter Goals Goal [...] documented as of this encounter Care Teams Warehouse Receiving Clerk Relationship Specialty Start Date End Date Name, MD Royal [address] [place] [address] [phone] PCP - General Family Medicine 06/16/19 Madhuri Becker PharmD [address] [place] [address] [phone] Pharmacist Internal Medicine 03/19/23 documented as of this encounter
--- OUTSIDE RECORDS SUMMARY | 2025-09-04 11:18 | XMS_ITS | Encounter Summary ---
Author Organization [facility] Address [address] [address] Phone Care Team Providers Care Site Superintendent Name Role Phone Name, Royal BEATTY Primary Care Provider [phone] Encounter Details Date Type Department Care Team (Late Contact Info) Description 01/18/2022 Documentation Only [facility] [address] [place] [phone] Abiel Gross MD [address] [place] [address] [place] [phone] Social History Tobacco Use Types Packs/Day Years [...] [facility] [address] [place] [address] [place] [phone] 09/14/2025 3:30 PM EDT Office Visit [facility] [address] [place] [phone] Abiel Gross MD [address] [place] [address] documented as of this encounter Visit Diagnoses Not on filedocumented in this encounter Care Teams Site Superintendent Relationship Specialty Start Date End Date Name, MD Royal [address] [place] [address] [phone] PCP - General 09/23/19 documented as of this encounter
--- OUTSIDE RECORDS SUMMARY | 2025-09-04 11:18 | XMS_ITS | Encounter Summary ---
Author Organization [employer] Address [address] [facility] 7t [place] [address] Care Team Providers Care Shirt Folder Name Role Phone Name, Royal BEATTY Primary Care Provider [phone] Madhuri Becker PharmD Unavailable [phone] Reason for Visit * Reason Onset Date Comments New Script 03/16/2023 Encounter Details Date Type Department Care Team ([facility] Contact Info) Description 03/16/2023 Telephone [facility] MEDICINE [address] [place] [address] Name, MD Royal [address] [place] [address] New Script Social History Tobacco Use Types [...] Bras . Please Fax over script at [phone] If any question please contact [place] at [phone] documented in this encounter Plan of Treatment Upcoming Encounters Date Type Department Care Team (Late st Contact Info) Description 09/28/2025 10:30 AM EST Office Visit [facility] OPTOMETRY [address] [place] [address] Aneesh, Meli, OD 230 [place] [address] 09/30/2025 10:00 AM EST Medication Management [facility] MEDICINE [address] [place] [address] Puia, Madhuri, PharmD [address] [place] [address] documented as of this encounter Goals Goal [...] documented as of this encounter Care Teams Shirt Folder Relationship Specialty Start Date End Date Name, MD Royal [address] [place] [address] PCP - General Family Medicine 06/16/19 Madhuri Becker, AlissonD [address] [place] [id number] Pharmacist Internal Medicine 03/19/23 documented as of this encounter
--- OUTSIDE RECORDS SUMMARY | 2025-09-04 11:18 | XMS_ITS | Encounter Summary ---
Author Organization [facility] Address [address] [place] [address] Phone Care Team Providers Care Clinical Quality Manager Name Role Phone Name, Royal BEATTY Primary Care Provider [phone] Encounter Details Date Type Department Care Team (Late Contact Info) Description 05/30/2024 Documentation Only [facility] [address] [place] [phone] [place] [address] [place] [phone] Social History Tobacco Use Types Packs/Day [...] visit [facility] [address] [place] [phone] 09/14/2025 3:30 PM EDT Office Visit [facility] [address] [place] [phone] Abiel Gross MD [address] [place] [address] documented as of this encounter Visit Diagnoses Not on filedocumented in this encounter Care Teams Clinical Quality Manager Relationship Specialty Start Date End Date Name, MD Royal [address] [place] [address] [phone] PCP - General 09/23/19 documented as of this encounter
== END 2025-09-04 09:48 | disposition home or self-care (01) ==
LOC: HO.MAMMO 09:47
PROVIDERS: PCP Internal Medicine Geriatric Medicine; Visit Provider Internal Medicine Geriatric Medicine
DX: Z12.31 Encounter for screening mammogram for malignant neoplasm of breast (principal)
CPT/HCPCS: 77063; 77067

== ENCOUNTER → 2025-09-04 10:00 | Outpatient (BNV) | payer OTHER, SELFPAY | PROVIDERS: PCP Internal Medicine Geriatric Medicine; Visit Provider Internal Medicine | DX: Z12.31 Encounter for screening mammogram for malignant neoplasm of breast (principal) | CPT/HCPCS: 77063; 77067 ==

== ENCOUNTER 2025-11-09 09:43 | Outpatient (AMB) | payer OTHER, SELFPAY ==
--- NOTE | 2025-11-09 09:45 | MHC.OFFVIS ---
Vital Signs 11/09/25 09:46 Height 5 ft 4 in Weight 198 lb 6.656 oz BMI 34.1 BP 132/64 Blood Pressure Location Rt brachial Position Sitting Pulse 89 Pulse Source Pulse Oximeter Pulse Oximetry (%) 99 Oxygen Delivery Method Room Air Intake Visit Reasons: W[facility]TER Hospice Admitting Clerk Required: Yes Hospice Admitting Clerk Language: Tailer Out Services: Hospice Admitting Clerk Present Hospice Admitting Clerk Name: Sophia Kumar LM Allergies No Known Allergies (No Known Allergies*) Allergy (Verified 11/09/25 09:49) HPI HPI WALTER: Details: Luz Elena is pleasant 80 year old female, former minimal smoker, with underlying asthma, h/o right breast cancer s/p chemo, radiation and mastectomy in 1998, CKD IV, DMII and HTN. Today she is accompanied by her son-in-law. She reports moderate control of respiratory symptoms with the use of Breo and albuterol MDI. She continues to report intermittent dry cough however did admit to not using Breo on a daily basis. Denies any dyspnea, wheezing or chest tightness. She denies any visits to urgent care or hospitalizations related to respiratory distress since the last visit. Previously she had reported symptoms suggestive of CARMELITA with paroxsymal nocturnal dyspnea, daytime fatigue and nonrestorative sleep however never reached out to to have this booked. She continues to report symptoms and is interested in a HST. 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 Housing: Apartment Do you presently have visiting nurse or other home services: Yes Alcohol intake: never Patient Tobacco Use Status: Former Tobacco user Years Smoked: quit 6 years ago service: No Current occupational status: disabled Sexual orientation: Straight/Heterosexual Gender identity: Female Female Reproductive History Menstrual Age of Menarche: 14 Review of Systems Const Denies chills, Denies excessive sweating, Denies fever(s), Denies headache(s) and Denies night sweats Eyes Denies dry eyes, Denies irritation and Denies itchy eyes ENT Reports Normal hearing present, Denies headache(s), Denies nasal congestion, Denies nasal discharge, Denies post nasal drip and Denies sore throat Card Denies chest pain, Denies chest pain at rest, Denies chest pain with activity, Denies claudication, Denies leg edema, Denies dyspnea, Denies dyspnea on exertion, Denies orthopnea and Denies paroxysmal nocturnal dyspnea Resp Denies chest congestion, Denies excessive phlegm production, Denies pain on inspiration, Denies pain with cough, Denies dyspnea, Denies dyspnea on exertion, Denies stridor and Denies wheezing Musc Denies myalgias Neuro Reports Normal hearing present and Denies headache(s) Endo Denies excessive sweating García/Lymph Denies lymphadenopathy Aller/Immun Denies itchy eyes, Denies seasonal rhinorrhea and Denies wheezing Physical Exam Vital Signs: Last Vital Signs Pulse 89 11/09/25 09:46 BP 132/64 11/09/25 09:46 Pulse Ox 99 11/09/25 09:46 Oxygen Delivery Method Room Air 11/09/25 09:46 BMI result Body Mass Index 34.1 Const General: cooperative, healthy appearing, comfortable, no acute distress, well developed and alert Nutritional Appearance: obese Orientation/consciousness: patient oriented x3 Limitations: no limitations HEENT Head: Yes normal to inspection, Yes normocephalic and Yes atraumatic Ears: hearing grossly normal bilaterally and external ears normal Eyes General: appearance normal, both eyes and all related structures Eyelids: Yes eyelids normal Sclerae: sclerae normal EOM: EOMs intact bilaterally Neck Neck: Yes normal visual inspection and Yes no lymphadenopathy Lymphatic: no lymphadenopathy noted Chest Chest palpation & inspection: normal inspection of the chest Resp Effort & Inspection: normal respiratory effort, able to speak in complete sentences, no audible wheezes, no cough, no stridor, not tachypneic, no tripod positioning and no use of accessory muscles Auscultation: clear to auscultation bilaterally Cardio Jugular venous distension: no JVD Rate: regular rate Rhythm: regular rhythm Skin Other: warm, dry General skin exam: no rashes or lesions noted Neuro General: patient oriented x3 Cranial nerves: Yes Normal hearing present Cognition (Neuro): normal cognition Gait exam (Neuro): Normal gait present Extrem General: Yes normal to inspection, Yes capillary refill normal, Yes no clubbing, cyanosis or edema and Yes no pedal edema Psych Appearance: grossly normal and well kempt Speech and movement: Normal speech and movement present and Clear speech present Affect: normal affect Attitude: cooperative Thought process: Normal thought process present Thought content: Normal thought content present Insight: Good insight present (Psych) Judgement: Good judgement present (Psych) Assessment & Plan Assessment & Plan (1) Asthma: Code(s): J45.909 - Unspecified asthma, uncomplicated Category: Medical (2) Dyspnea on exertion: Code(s): R06.09 - Other forms of dyspnea Category: Medical (3) 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 Will send refills in addition to albuterol MDI. She is aware to call if cough does not improve despite consistent use of Breo. She has upcoming chest CT 12/2025 to assess stability of pleural scarring which she is aware of and again discussed prior reports of symptoms suggestive of CARMELITA with paroxsymal nocturnal dyspnea, daytime fatigue and nonrestorative sleep. Will resend order for HST. All questions were answered and patient is in agreement of plan. Will follow up to review results or sooner if needed. Orders: Orders RT home sleep study Today R06.00 - Dyspnea, unspecified, R40.0 - Somnolence Medications: Refilled albuterol sulfate 90 mcg/actuation 2 puffs inhalation Q4-6H PRN 1 ea 3RF shortness of breath or wheezing fluticasone furoate-vilanterol 100-25 mcg/dose (Breo Ellipta) 1 inh inhalation DAILY 60 ea 6RF Coding Level of Care Code Est Pt Level 4 (89788) Diagnoses Asthma J45.909 Dyspnea on exertion R06.09 Pleural scarring J94.8 Paroxysmal nocturnal dyspnea R06.00
[2025-11-09 09:46] VITALS: BP 132/64; PULSE 89; O2SAT 99; BMI 34.1
--- OUTSIDE RECORDS SUMMARY | 2025-11-09 11:13 | XMS_ITS | Encounter Summary ---
Author Organization [facility] Address [address] [address] Phone Care Team Providers Care Customer Sales Service Manager Name Role Phone Name, Royal BEATTY Primary Care Provider [phone] Encounter Details Date Type Department Care Team (Late st Contact Info) Description 07/22/2025 Documentation Only [facility] [address] [place] [address] Cruz, [place] [address] [place] [phone] Social History Tobacco Use Types Packs/Day [...] Care Team (Late st Contact Info) Description 11/13/2025 8:30 AM EST Procedure visit [facility] [address] [place] [address] 12/21/2025 3:30 PM EST Office Visit [facility] [address] [place] [address] Abiel Gross MD [address] [place] [address] [place] [address] documented as of this encounter Visit Diagnoses Not on filedocumented in this encounter Care Teams Customer Sales Service Manager Relationship Specialty Start Date End Date Name, MD Royal [address] [place] [address] [phone] PCP - General 09/23/19 documented as of this encounter
--- OUTSIDE RECORDS SUMMARY | 2025-11-09 11:13 | XMS_ITS | Encounter Summary ---
Author Organization [employer] Address [address] [facility] 7t [place] [address] Care Team Providers Care Otr Owner Operator Truck Driver Name Role Phone Name, Royal BEATTY Primary Care Provider [phone] Madhuri Becker PharmD Unavailable [phone] Reason for Visit * Reason Onset Date Comments Appointment Request 01/01/2025 Encounter Details Date Type Department Care Team ([facility] Contact Info) Description 01/01/2025 Telephone [facility] MEDICINE [address] [place] [address] Name, MD Royal [address] [place] [address] Appointment Request Social History Tobacco Use Types [...] 01/01/2025 8:11 AM EST 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 Contact pt SUPER[employer]OR [employer] at [phone] documented in this encounter Plan of Treatment Upcoming Encounters Date Type Department Care Team (Late st Contact Info) Description 11/16/2025 10:30 AM EST Medication Management [facility] MEDICINE [address] [place] [address] Madhuri Becker, PharmD [address] [place] [address] documented as of this encounter Goals Goal Patient Goal Type Associated Problems Recent Progress Patient-Stated? Author Hemoglobin A1c < 8 Result Component 8.7( 11:59 AM EDT) No Palomaia Madhuri, PharmD Record your blood sugar as [...] documented as of this encounter Care Teams Otr Owner Operator Truck Driver Relationship Specialty Start Date End Date Name, MD Royal [address] [place] [address] PCP - General Family Medicine 06/16/19 Madhuri Becker, Jazzmine [address] [place] [address] Pharmacist Internal Medicine 03/19/23 documented as of this encounter
--- OUTSIDE RECORDS SUMMARY | 2025-11-09 11:13 | XMS_ITS | Encounter Summary ---
Author Organization [facility] Address [address] [address] Phone Care Team Providers Care Airport Traffic Controller Name Role Phone Name, Royal BEATTY Primary Care Provider [phone] Encounter Details Date Type Department Care Team (Late st Contact Info) Description 07/22/2025 Documentation Only [facility] [address] [place] [address] Cruz, [place] [address] [place] [phone] Social History Tobacco Use Types Packs/Day [...] visit [facility] [address] [place] [address] 12/21/2025 3:30 PM EST Office Visit [facility] Of [address] [place] [phone] Abiel Gross MD [address] [place] [address] [place] [address] documented as of this encounter Visit Diagnoses Not on filedocumented in this encounter Care Teams Airport Traffic Controller Relationship Specialty Start Date End Date Name, MD Royal [address] [place] [address] [phone] PCP - General 09/23/19 documented as of this encounter
--- OUTSIDE RECORDS SUMMARY | 2025-11-09 11:13 | XMS_ITS | Encounter Summary ---
Author Organization [facility] Address [address] [address] Phone Care Team Providers Care Supervisor Of Officials Name Role Phone Name, Royal BEATTY Primary Care Provider [phone] Encounter Details Date Type Department Care Team (Late st Contact Info) Description 07/17/2025 Documentation Only [facility] [address] [place] [address] Cruz, [place] [address] [place] [phone] Social History Tobacco Use Types Packs/Day Years [...] visit [facility] [address] [facility] [address] [place] [address] 12/21/2025 3:30 PM EST Office Visit [facility] [address] [place] [address] Abiel Gross MD [address] [place] [address] [place] [address] documented as of this encounter Visit Diagnoses Not on filedocumented in this encounter Care Teams Supervisor Of Officials Relationship Specialty Start Date End Date Name, MD Royal [address] [place] [address] [phone] PCP - General 09/23/19 documented as of this encounter
--- OUTSIDE RECORDS SUMMARY | 2025-11-09 11:13 | XMS_ITS | Encounter Summary ---
Author Organization [employer] Address [address] [facility] 7t [place] [address] Care Team Providers Care Supervisor Taping Name Role Phone Name, Royal BEATTY Primary Care Provider [phone] Madhuri Becker PharmD Unavailable [phone] Reason for Visit * Reason Onset Date Comments Appointment Request 11/03/2024 Encounter Details Date Type Department Care Team ([facility] Contact Info) Description 11/03/2024 Telephone [facility] [address] [place] [address] Name, MD Royal [address] [place] [address] Appointment Request Social History Tobacco Use Types [...] 11/03/2024 9:22 AM EST Tc from [facility] ([facility]) requesting to reschedule today's CDTM visit. Please contact Maco at [phone]. (Tamazight Speaker) documented in this encounter Plan of Treatment Upcoming Encounters Date Type Department Care Team (Late st Contact Info) Description 11/16/2025 10:30 AM EST Medication Management [facility] [address] [place] [address] PuiaHumbertoMadhuri, PharmD [address] [place] [address] documented as of this encounter Goals Goal [...] documented as of this encounter Care Teams Supervisor Taping Relationship Specialty Start Date End Date Name, MD Royal [address] [place] [address] PCP - General Family Medicine 06/16/19 Madhuri Becker, AlissonD [address] [place] [address] Pharmacist Internal Medicine 03/19/23 documented as of this encounter
--- OUTSIDE RECORDS SUMMARY | 2025-11-09 11:13 | XMS_ITS | Encounter Summary ---
Author Organization [employer] Address [address] [place] [address] 7t [place] [address] Care Team Providers Care Jewelry Jobber Name Role Phone Name, Royal BEATTY Primary Care Provider [phone] Madhuri Becker PharmD Unavailable [phone] Encounter Details Date Type Department Care Team (Late st Contact Info) Description 11/02/2022 Orders Only [facility] [address] [place] [address] Nory Brown LPN Social History Tobacco Use [...] Description 11/16/2025 10:30 AM EST Medication Management [facility] MED[facility] [address] [place] [address] PuiaHumbertoMadhuri, PharmD [address] [place] [address] documented as of this encounter Visit Diagnoses Not on filedocumented in this encounter Care Teams Jewelry Jobber Relationship Specialty Start Date End Date Name, MD Royal [address] [place] [address] PCP - General Family Medicine 06/16/19 Puia Madhuri, PharmD [address] [place] [phone] Pharmacist Internal Medicine 03/19/23 documented as of this encounter
--- OUTSIDE RECORDS SUMMARY | 2025-11-09 11:14 | XMS_ITS | Encounter Summary ---
Author Organization [facility] Address [address] [address] Phone Care Team Providers Care Early Years Teacher Name Role Phone Name, Royal BEATTY Primary Care Provider [phone] Encounter Details Date Type Department Care Team (Late st Contact Info) Description 01/18/2022 Documentation Only [facility] [address] [place] [phone] Abiel Gross MD [address] [place] [address] [place] [phone] Social History Tobacco Use Types Packs/Day Years [...] visit [facility] [address] [facility] [place] [phone] 12/21/2025 3:30 PM EST Office Visit [facility] Of [address] [place] [phone] Abiel Gross MD [address] [place] [address] [place] [address] documented as of this encounter Visit Diagnoses Not on filedocumented in this encounter Care Teams Early Years Teacher Relationship Specialty Start Date End Date Name, MD Royal [address] [place] [address] [phone] PCP - General 09/23/19 documented as of this encounter
--- OUTSIDE RECORDS SUMMARY | 2025-11-09 11:14 | XMS_ITS | Encounter Summary ---
Author Organization [facility] [place], Address [address] [address] Phone Care Team Providers Care Hotel Staff Member Name Role Phone Name, Royal BEATTY Primary Care Provider Encounter Details Date Type Department Care Team (Late st Contact Info) Description 12/19/2022 Documentation Only [facility] [address] [place] [phone] Polina Sarmiento [address] [place] [phone] Social History Tobacco Use Types Packs/Day [...] visit [facility] [address] [place] [phone] 12/21/2025 3:30 PM EST Office Visit [facility] [address] [place] [phone] Abiel Gross MD [address] [place] [address] [place] [address] documented as of this encounter Visit Diagnoses Not on filedocumented in this encounter Care Teams Hotel Staff Member Relationship Specialty Start Date End Date Name, MD Royal [address] [place] [id number] PCP - General 09/23/19 documented as of this encounter
--- OUTSIDE RECORDS SUMMARY | 2025-11-09 11:14 | XMS_ITS | Encounter Summary ---
Author Organization [employer] Address [address] [facility] 7t [place] [address] Care Team Providers Care Gas Distribution And Emergency Clerk Name Role Phone Name, Royal BEATTY Primary Care Provider [phone] Madhuri Becker PharmD Unavailable [phone] Reason for Visit * Reason Comments Med Refill Encounter Details Date Type Department Care Team ([facility] Contact Info) Description 05/19/2024 Refill [facility] [address] [place] [address] Maryan Vasquez MD [address] [place] [address] Social History Tobacco Use Types Packs/Day Years [...] Description 11/16/2025 10:30 AM EST Medication Management [facility] [address] [place], [place] [phone] Madhuri Becker, PharmD [address] [place], [place] [phone] documented as of this encounter Goals Goal [...] documented as of this encounter Care Teams Gas Distribution And Emergency Clerk Relationship Specialty Start Date End Date Name, MD Royal [address] [place] [address] [phone] PCP - General Family Medicine 06/16/19 Madhuri Becker, PharmD [address] [place] [address] [phone] Pharmacist Internal Medicine 03/19/23 documented as of this encounter
--- OUTSIDE RECORDS SUMMARY | 2025-11-09 11:14 | XMS_ITS | Encounter Summary ---
Author Organization [employer] Address [address] [facility] 7t [place] [address] Care Team Providers Care Pen Rider Name Role Phone Name, Royal BEATTY Primary Care Provider [phone] Madhuri Becker PharmD Unavailable [phone] Reason for Visit * Reason Onset Date Comments New Script 03/16/2023 Encounter Details Date Type Department Care Team ([facility] Contact Info) Description 03/16/2023 Telephone [facility] [address] [place] [address] Name, MD Royal [address] [place] [address] New Script Social History Tobacco Use Types [...] AM EDT Tc from [place] with [facility] Elijah requesting a script for Six Mastectomy Bras . Please Fax over script at [phone] If any question please contact [place] at [phone] documented in this encounter Plan of Treatment Upcoming Encounters Date Type Department Care Team (Late st Contact Info) Description 11/16/2025 10:30 AM EST Medication Management [facility] [address] [place], [place] [phone] Madhuri Becker, PharmD [address] [place] [phone] documented as of this encounter Goals Goal [...] documented as of this encounter Care Teams Pen Rider Relationship Specialty Start Date End Date Name, MD Royal [address] [place] [address] [phone] PCP - General Family Medicine 06/16/19 Madhuri Becker, PharmD [address] [place] [address] [phone] Pharmacist Internal Medicine 03/19/23 documented as of this encounter
--- OUTSIDE RECORDS SUMMARY | 2025-11-09 11:14 | XMS_ITS | Encounter Summary ---
Author Organization [employer] Address [address] [facility] 7t [place] [address] Care Team Providers Care Vp Genetic Name Role Phone Name, Royal BEATTY Primary Care Provider [phone] Madhuri Becker PharmD Unavailable [phone] Reason for Visit * Reason Comments Med Refill Encounter Details Date Type Department Care Team ([facility] Contact Info) Description 02/28/2025 Refill [facility] [address] [place] [address] Name, MD Royal [address] [place] [address] Social History Tobacco Use Types Packs/Day Years [...] Description 11/16/2025 10:30 AM EST Medication Management [facility] MED[facility]INE [address] [place] [address] PuiaMadhuri, PharmD [address] [place] [address] documented as of this encounter Goals Goal Patient Goal Type Associated Problems Recent Progress Patient-Stated? Author Hemoglobin A1c < 8 Result Component 8.7( 11:59 AM EDT) No PuiaHumbertoMadhuri, PharmD Record your blood sugar as directed Result Component No Puguido Madhuri, PharmD Note: Use CGM, as instructed, ensuring sensor is scanned at least Q8hr. Check BG via fingerstick as needed & as directed. documented as of this encounter Visit Diagnoses Not on filedocumented in this encounter Additional Health Concerns Assessment Noted Time PHQ-9 Depression Total Score: 0 03/11/20 24 2:52 PM EDT documented as of this encounter Care Teams Vp Genetic Relationship Specialty Start Date End Date Name, MD Royal [address] [place] [address] PCP - General Family Medicine 06/16/19 Madhuri Becker, [employer] [address] [place] [phone] Pharmacist Internal Medicine 03/19/23 documented as of this encounter
--- OUTSIDE RECORDS SUMMARY | 2025-11-09 11:14 | XMS_ITS | Encounter Summary ---
Author Organization [facility] Address [address] [address] Phone Care Team Providers Care Refinery Operator Vapor Recovery Unit Name Role Phone Name, Royal BEATTY Primary Care Provider [phone] Encounter Details Date Type Department Care Team (Late st Contact Info) Description 05/30/2024 Documentation Only [facility] [address] [place] [phone] Cruz, [place] [address] [place] [phone] Social History Tobacco Use Types Packs/Day [...] visit [facility] [address] [address] 12/21/2025 3:30 PM EST Office Visit [facility] [address] [place] [phone] Abiel Gross MD [address] [place] [address] [place] [address] documented as of this encounter Visit Diagnoses Not on filedocumented in this encounter Care Teams Refinery Operator Vapor Recovery Unit Relationship Specialty Start Date End Date Name, MD Royal [address] [place] [address] [phone] PCP - General 09/23/19 documented as of this encounter
--- OUTSIDE RECORDS SUMMARY | 2025-11-09 11:14 | XMS_ITS | Encounter Summary ---
Author Organization [facility] Address [address] [address] Phone Care Team Providers Care Penetration Tester Name Role Phone Name, Royal BEATTY Primary Care Provider [phone] Reason for Visit * Reason Comments Med Refill Encounter Details Date Type Department Care Team (Late Contact Info) Description 11/06/2022 Refill [facility] [address] [place] [phone] Abiel Gross MD [address] [facility] [place] [phone] Social History Tobacco Use Types Packs/Day Years [...] Department Care Team (Late Contact Info) Description 11/13/2025 8:30 AM EST Procedure visit [facility] [address] [place] [phone] 12/21/2025 3:30 PM EST Office Visit [facility] [address] [place] [phone] Abiel Gross MD [facility] [place] [address] documented as of this encounter Visit Diagnoses Not on filedocumented in this encounter Care Teams Penetration Tester Relationship Specialty Start Date End Date Name, MD Royal [address] [place] [address] [phone] PCP - General 09/23/19 documented as of this encounter
--- OUTSIDE RECORDS SUMMARY | 2025-11-09 11:14 | XMS_ITS | Encounter Summary ---
Author Organization [email or web address] Address 75 [facility] 7t [place] [address] Care Team Providers Care Camp Tender Name Role Phone Name, Royal BEATTY Primary Care Provider [phone] Madhuri Becker PharmD Unavailable [phone] Reason for Visit * Reason Comments Med Refill Encounter Details Date Type Department Care Team ([facility] Contact Info) Description 08/14/2025 Refill [facility] [address] [place] [address] Remedios Marquis DO [address] [place] [address] Social History Tobacco Use Types Packs/Day Years [...] Description 11/16/2025 10:30 AM EST Medication Management [facility] [address] [place] [address] Madhuri Becker PharmD [address] [place] [address] documented as of this encounter Goals Goal [...] documented as of this encounter Care Teams Camp Tender Relationship Specialty Start Date End Date Name, MD Royal [address] [place] [address] PCP - General Family Medicine 06/16/19 Madhuri Becker PharmD [address] [place] [address] Pharmacist Internal Medicine 03/19/23 documented as of this encounter
--- OUTSIDE RECORDS SUMMARY | 2025-11-09 11:14 | XMS_ITS | Encounter Summary ---
Author Organization [employer] Address 75 [facility] 7t [place] [address] Care Team Providers Care Ladies' Locker Room Attendant Name Role Phone Name, Royal BEATTY Primary Care Provider [phone] Madhuri Becker PharmD Unavailable [phone] Reason for Visit * Reason Comments Med Refill Encounter Details Date Type Department Care Team ([facility] Contact Info) Description 05/02/2024 Refill [facility] [address] [place] [address] Zechariah Bernabe MD [address] [place] [address] Social History Tobacco Use Types Packs/Day Years [...] Description 11/16/2025 10:30 AM EST Medication Management [facility] [address] [place], [place] [phone] Madhuri Becker, PharmD [address] [place], [place] [phone] documented as of this encounter Goals Goal [...] documented as of this encounter Care Teams Ladies' Locker Room Attendant Relationship Specialty Start Date End Date Name, MD Royal [address] [place] [address] [phone] PCP - General Family Medicine 06/16/19 Madhuri Becker, PharmD [address] [place] [address] [phone] Pharmacist Internal Medicine 03/19/23 documented as of this encounter
--- OUTSIDE RECORDS SUMMARY | 2025-11-09 11:14 | XMS_ITS | Encounter Summary ---
Author Organization [employer] Address [address] [facility] 7t [place] [address] Care Team Providers Care Ski Technician Name Role Phone Name, Royal BEATTY Primary Care Provider [phone] Madhuri Becker PharmD Unavailable [phone] Encounter Details Date Type Department Care Team (Late Contact Info) Description 01/29/[address] [facility] [address] [place] [address] Remedios Rider LPN Social History Tobacco Use [...] Description 11/16/2025 10:30 AM EST Medication Management [facility] [address] [place] [address] Madhuri Becker, PharmD [address] [place] [address] documented as of this encounter Visit Diagnoses Not on filedocumented in this encounter Additional Health Concerns Assessment Noted Time PHQ-9 Depression Total Score: 0 11/09/20 11:52 AM EST documented as of this encounter Care Teams Ski Technician Relationship Specialty Start Date End Date Name, MD Royal [address] [place] [address] PCP - General Family Medicine 06/16/19 Madhuri Becker, Jazz[employer] [address] [place] [address] Pharmacist Internal Medicine 03/19/23 documented as of this encounter
--- OUTSIDE RECORDS SUMMARY | 2025-11-09 11:14 | XMS_ITS | Encounter Summary ---
Author Organization [facility] Address [address] [address] Phone Care Team Providers Care Mill Dresser Name Role Phone Name, Royal BEATTY Primary Care Provider [phone] Reason for Visit * Reason Comments Med Refill Encounter Details Date Type Department Care Team (Late Contact Info) Description 03/25/2024 Refill [facility] [address] [place] [phone] Abiel Gross MD [address] [facility] [place] [phone] Social History Tobacco Use Types Packs/Day Years [...] Procedure visit [facility] [address] [place] [phone] 12/21/2025 3:30 PM EST Office Visit [facility] [address] [place] [phone] Abiel Gross MD [facility] [place] [address] documented as of this encounter Visit Diagnoses Not on filedocumented in this encounter Care Teams Mill Dresser Relationship Specialty Start Date End Date Name, MD Royal [address] [place] [address] [phone] PCP - General 09/23/19 documented as of this encounter
--- OUTSIDE RECORDS SUMMARY | 2025-11-09 11:14 | XMS_ITS | Clinical Summary ---
Author Organization [facility] [place], Address [address] [place] [address] [place] [address] Phone Care Team Providers Care Enterprise Systems Architect Name Role Phone Name, Royal BEATTY Primary Care Provider [phone] Allergies No known active allergies Medications acetaminophen (TYLENOL) 500 MG tablet Take 2 tablets by mouth 3 (three) times a day Active amLODIPine (NORVASC) 2.5 MG tablet Take 1 tablet by mouth 1 (one) time each day Active levothyroxine (SYNTHROID, LEVOTHROID) 25 MCG tablet Take 1 tablet by mouth 1 (one) time each day Active losartan (COZAAR) 100 MG tablet Take 1 tablet by mouth 1 (one) time each day 03/12/20 18 Active gabapentin (NEURONTIN) 100 MG capsule Take 100 mg by mouth at bed time 12/19/19 20 Active FREESTYLE LITE test strip TEST BLOOD SUGAR EVERY DAY OR DIRECTED 12/19/19 20 Active PENTIPS 32G X 4 MM misc USE FOUR TIMES DAILY WITH humalog & lantus 12/19/19 20 Active TRUEPLUS LANCETS 33G misc TEST BLOOD SUGAR EVERY DAY OR DIRECTED 12/19/19 20 Active NovoLOG FLEXPEN 100 UNIT/ML injection INJECT [...] AND IN THE EVENING WITH FOOD 11/09/20 Active TRUEplus Glucose On The Go 4 g chewable tablet CHEW 4 TABLETS NEEDED FOR low blood sugar (LESS THAN 70mg/dL) 11/09/20 Active calcitriol (ROCALTROL) 0.25 MCG capsule TAKE 1 CAPSULE BY MOUTH EVERY MORNING 30 capsule 11 03/02/20 25 Active furosemide (LASIX) 40 MG tablet TAKE 1 TABLET BY MOUTH TWICE DAILY IN THE MORNING AND IN THE EVENING 180 tablet 3 03/27/20 25 Active Mounjaro 15 MG/0.5ML solution auto-injector INJECT ONE PEN (=15MG) SUBCUTANEOUSLY ONCE A WEEK DIRECTED 07/08/20 Active Diclofenac Sodium 1 % gel APPLY 2 GRAMS TOPICALLY TO AFFECTED AREA(S) 4 TIMES A DAY IN THE MORNING, AT NOON, IN THE EVENING, AND AT BEDTIME NEEDED FOR PAIN 06/11/20 25 Active cholecalcifer ol (VITAMIN D-3) 25 MCG (1000 UT) tablet TAKE 1 TABLET BY MOUTH EVERY MORNING 30 tablet 11 08/05/20 25 Active loperamide (Imodium A-D) 2 MG tablet Take by mouth 08/19/20 Active atorvastatin (LIPITOR) 40 MG tablet Take 40 mg by mouth 08/19/20 18 Active Tresiba FlexTouch 200 UNIT/ML injection Inject 10 Units under the skin every morning 08/27/20 25 Active rosuvastatin (CRESTOR) 10 MG tablet 09/17/20 Active Breo Ellipta 100-25 MCG/ACT aerosol powder 09/17/20 25 Active aspirin (ST CLYDE) 81 MG EC tablet Take 81 mg by mouth 1 (one) time each day Active omeprazole OTC (PriLOSEC OTC) 20 MG EC tablet Take 20 mg by mouth 1 (one) time each day Do not crush, chew, or split. Active metoprolol tartrate 25 MG tablet TAKE 1 TABLET BY MOUTH TWICE DAILY IN THE MORNING AND IN THE EVENING 60 tablet 10/12/20 25 Active loratadine (CLARITIN) 10 MG tablet Take 10 mg by mouth 1 (one) time each day 10/09/20 25 Active metoprolol tartrate 25 MG tablet TAKE 1 TABLET BY MOUTH TWICE DAILY IN THE MORNING AND IN THE EVENING 60 tablet 11 10/06/20 24 2024 Discontinued Active Problems Problem Noted Date Diagnosed Date Asthma 10/09/2025 Back pain 04/29/2025 Carcinoma in situ of breast 04/29/2025 Secondary hyperparathyroidism 03/23/2023 Anemia in chronic kidney disease 03/23/2023 Chronic kidney disease, stage 4 (severe) 023 Chronic kidney disease stage 3 11/20/2019 Essential hypertension 11/20/2019 Hyperlipidemia 11/20/2019 Proteinuria 11/20/2019 Type 2 diabetes mellitus without complication Chronic kidney disease stage 5 due to type 2 diabetes mellitus 03/19/2018 Encounters Date Type Department Care Team Description 10/26/2025 Telephone [facility] [address] [place] [phone] Juana Infante 10/23/2025 9:00 AM EST Procedure visit [facility] [place] [address] [place] [address] Nitish Rosa MD Chronic kidney disease, Stage V (HCC) [N18.5] (Primary Dx); End stage renal disease (HCC); 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, subsequent encounter 10/22/2025 Telephone [facility] [place] [address] [place] [address] 10/10/2025 Refill [facility] [place] [address] [place] [address] Abiel Gross MD 10/09/2025 10:00 AM EST Procedure visit [facility] [place] [address] [place] [address] Edward Santos MD Chronic kidney disease, Stage V (HCC) [N18.5] (Primary Dx) 10/07/2025 Telephone [facility] [place] [address] [place] [address] 09/28/2025 Telephone [facility] Access [address] [place] [address] Juana Infante 09/25/2025 8:00 AM EST Procedure visit [facility] Access [address] [place] [address] Nitish Rosa MD Stage 5 chronic kidney disease (HCC) (Primary Dx); 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, subsequent encounter 09/23/2025 Telephone [facility] Vascular [address] [place] [address] Cynthia Casanova 09/14/2025 3:30 PM EDT Office Visit [facility] [address] [place] [address] Abiel Gross MD Stage 5 chronic kidney disease (HCC) (Primary Dx); Type 2 diabetes mellitus with diabetic chronic kidney disease, with long-term use of insulin (HCC); Persistent proteinuria; Anemia in chronic kidney disease; Secondary hyperparathyroidism (HCC); Hypertension 09/14/2025 Telephone [facility] [address] [place] [address] 09/11/2025 1:00 PM EDT Procedure visit [facility] [address] [place] [address] Nitish Rosa MD Stage 5 chronic kidney disease (HCC) (Primary Dx); 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, subsequent encounter 09/10/2025 Telephone [facility] [address] [place] [address] 09/02/2025 3:00 PM EDT Office Visit [facility] [address] [place] [address] Edward Santos MD Chronic kidney disease, stage 4 (severe) (HCC) (Primary Dx) 08/31/2025 Orders Only [facility] [address] [place] [address] Elidia Cruz MA Stage 5 chronic kidney disease (HCC) (Primary Dx); Persistent proteinuria; Type 2 diabetes mellitus with diabetic chronic kidney disease, 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); Anemia in chronic kidney disease; Secondary hyperparathyroidism (HCC); Hypertension; Albuminuria, not otherwise specified 08/18/2025 Telephone [facility] Access [address] [place] [address] 08/17/2025 10:00 AM EDT Procedure visit [facility] Access [address] [place] [address] Edward Santos MD Stage 5 chronic kidney disease (HCC) (Primary Dx) 08/13/2025 9:30 AM EDT Office Visit [facility] V[facility] Access [address] [place] [address] Edward Santos MD Chronic kidney disease, stage 4 (severe) (HCC) (Primary Dx) from Last 3 Months Immunizations Immunization Administration Dates Next Due Influenza, Unspecified 11/01/2018 Pneumococcal Conjugate 13-Valent 08/01/2018 Pneumococcal Polysaccharide 04/29/2018 Zoster 08/01/2018 Social History Tobacco Use Types Packs/Day Years Used Date Smoking Tobacco: Former Cigarettes Tobacco Cessation:Counseling Given: Not Answered Comments:Smoking History Info:Every day Alcohol Use Standard Drinks/Week Comments Not Currently 0 (1 standard drink = 0.6 oz pur e alcohol) Comments Unknown Sex and Gender Information Value Date Recorded Sex Assigned at Not on file Legal Sex Female 4:30 PM EST Gender Identity Not on file Sexual Orientation Not on file Last Filed Vital Signs Vital Sign Reading Time Taken Comments Blood Pressure 151/77 10/23/2025 8:45 AM EST Pulse 80 10/23/2025 8:45 AM EST Temperature 36.6 C (97.8 F) 10/23/2025 8:45 AM EST Respiratory Rate 16 10/23/2025 8:45 AM EST Oxygen Saturation 96% 10/23/2025 8:45 AM EST Inhaled Oxygen Concentration - - Weight 89.4 kg (197 lb) 10/23/2025 8:45 AM EST Height 165.1 cm (5' 5 ) 10/23/2025 8:45 AM EST Body Mass Index 32.78 10/23/2025 8:45 AM EST Plan of Treatment Upcoming Encounters Date Type Department Care Team (Late st Contact Info) Description 11/13/2025 8:30 AM EST Procedure visit [facility] [address] [place] [address] [place] [phone] 12/21/2025 3:30 PM EST Office Visit [facility] [address] [place] [address] Abiel Gross MD [address] [place] [address] [place] [address] Health Maintenance Due Date Last Done [...] PM EDT) Hemoglobin A1C 9.2(H) (4.0-5.6) % [facility] Comment: MONITORING: In known diabetic patients, hemoglobin A1c targets should be discussed with health care provider. DIAGNOSTIC USE: The [place] [employer] (ADA) and the World Health [...] Supplement 1 Testing performed or reported by [facility], a Service of [facility], [address] [place] [address] Geetha Meléndez MD, Plant Breeder Scientist Blood specimen (specimen) Venous blood / Unknown 05/16/2021 4:21 PM EDT 05/16/2021 4:26 PM EDT us Abiel Gross MD LAB BLOOD ORDERABLES Final Result [facility] from Last 3 Months or Most Recently Relevant to Health Maintenance Insurance [facility] Care Dual SNP ([id number]) [place] [id number] Care Teams Enterprise Systems Architect Relationship Specialty Start Date End Date Name, MD Royal [address] [place] [phone] PCP - General 09/23/19
--- OUTSIDE RECORDS SUMMARY | 2025-11-09 11:14 | XMS_ITS | Encounter Summary ---
Author Organization [facility] Address [address] [address] Phone Care Team Providers Care Ash Handler Name Role Phone Name, Royal BEATTY Primary Care Provider [phone] Encounter Details Date Type Department Care Team (Late st Contact Info) Description 05/30/2023 Documentation Only [facility] [address] [place] [address] Abiel Gross MD [address] [place] [address] [place] [address] Social History Tobacco Use Types Packs/Day Years [...] visit [facility] Access Center [address] [place] [address] 12/21/2025 3:30 PM EST Office Visit [facility] [address] [place] [address] Abiel Gross MD [address] [place] [address] [place] [address] documented as of this encounter Visit Diagnoses Not on filedocumented in this encounter Care Teams Ash Handler Relationship Specialty Start Date End Date Name, MD Royal [address] [place] [address] [phone] PCP - General 09/23/19 documented as of this encounter
--- OUTSIDE RECORDS SUMMARY | 2025-11-09 11:14 | XMS_ITS | Encounter Summary ---
Author Organization [facility] Address [address] [address] Phone Care Team Providers Care Special Event Assistant Name Role Phone Name, Royal BEATTY Primary Care Provider [phone] Encounter Details Date Type Department Care Team (Late st Contact Info) Description 04/09/2023 Documentation Only [facility] [address] [place] [phone] [facility] [place] [address] [place] [address] Social History Tobacco Use Types Packs/Day [...] [facility] Access Center [address] [place] [phone] 12/21/2025 3:30 PM EST Office Visit [facility] [address] [place] [address] Abiel Gross MD [address] [place] [address] [place] [address] documented as of this encounter Visit Diagnoses Not on filedocumented in this encounter Care Teams Special Event Assistant Relationship Specialty Start Date End Date Name, MD Royal [address] [place] [phone] PCP - General 09/23/19 documented as of this encounter
--- OUTSIDE RECORDS SUMMARY | 2025-11-09 11:14 | XMS_ITS | Encounter Summary ---
Author Organization [facility] Address [address] [facility] [place] [address] Phone Care Team Providers Care Press Operator Instant Print Shop Name Role Phone Name, Royal BEATTY Primary Care Provider [phone] Encounter Details Date Type Department Care Team (Late Contact Info) Description 06/01/2025 Documentation Only [facility] Access Center [address] [place] [address] [place] [address] Dulce Maria Painting Social History Tobacco Use Types Packs/Day Years [...] visit [facility] V[facility] Access [address] [place] [phone] 12/21/2025 3:30 PM EST Office Visit [facility] [address] [place] [phone] Abiel Gross MD [address] [place] [address] [place] [phone] documented as of this encounter Visit Diagnoses Not on filedocumented in this encounter Care Teams Press Operator Instant Print Shop Relationship Specialty Start Date End Date Name, MD Royal [address] [place] [phone] PCP - General 09/23/19 documented as of this encounter
--- OUTSIDE RECORDS SUMMARY | 2025-11-09 11:14 | XMS_ITS | Encounter Summary ---
Author Organization [facility] Address [address] [address] Phone Care Team Providers Care Senior Cost Accountant Name Role Phone Name, Royal BEATTY Primary Care Provider [phone] Reason for Visit * Reason Comments Med Refill Encounter Details Date Type Department Care Team (Late Contact Info) Description 03/24/2024 Refill [facility] [address] [place] [address] Abiel Gross MD [address] [place] [address] [place] [address] Social History Tobacco Use Types Packs/Day Years [...] Date Type Department Care Team ([facility] Contact Info) Description 11/13/2025 8:30 AM EST Procedure visit [facility] Access Center [address] [address] 12/21/2025 3:30 PM EST Office Visit [facility] [address] [place] [address] Abiel Gross MD [address] [place] [phone] documented as of this encounter Visit Diagnoses Not on filedocumented in this encounter Care Teams Senior Cost Accountant Relationship Specialty Start Date End Date Name, MD Royal [address] [place] [address] [phone] PCP - General 09/23/19 documented as of this encounter
--- OUTSIDE RECORDS SUMMARY | 2025-11-09 11:14 | XMS_ITS | Encounter Summary ---
Author Organization [employer] Address [address] [facility] 7t [place] [address] Care Team Providers Care Database Developer Name Role Phone Name, Royal BEATTY Primary Care Provider [phone] Madhuri Becker PharmD Unavailable [phone] Reason for Visit * Reason Onset Date Comments Created In Error 07/30/2024 Encounter Details Date Type Department Care Team ([facility] Contact Info) Description 07/30/2024 Telephone [facility] MED[facility]INE [address] [place] [address] Name, MD Royal [address] [place] [address] Created In Error Social History Tobacco Use [...] Description 11/16/2025 10:30 AM EST Medication Management [facility] MED[facility]INE [address] [place] [address] PuiaHumbertoMadhuri, PharmD [address] [place], [place] [phone] documented as of this encounter Goals Goal [...] documented as of this encounter Care Teams Database Developer Relationship Specialty Start Date End Date Name, MD Royal [address] [place] [address] PCP - General Family Medicine 06/16/19 Madhuri Becker, [employer] [address] [place] [address] [phone] Pharmacist Internal Medicine 03/19/23 documented as of this encounter
--- OUTSIDE RECORDS SUMMARY | 2025-11-09 11:14 | XMS_ITS | Encounter Summary ---
Author Organization [employer] Address [address] [facility] [address] [place] [address] Care Team Providers Care Fur Tinter Name Role Phone Name, Royal BEATTY Primary Care Provider [phone] Madhuri Becker PharmD Unavailable [phone] Reason for Visit * Reason Comments Med Refill Encounter Details Date Type Department Care Team ([facility] Contact Info) Description 05/31/2023 Refill [facility] MEDICINE [address] [place] [address] Name, MD Royal [address] [place] [address] Social History Tobacco Use Types Packs/Day Years [...] Upcoming Encounters Date Type Department Care Team ([facility] Contact Info) Description 11/16/2025 10:30 AM EST Medication Management [facility] MEDICINE [address] [place] [address] Madhuri Becker PharmD [address] [place] [address] documented as of this encounter Goals Goal Patient Goal Type Associated Problems Recent Progress Patient-Stated? Author Hemoglobin A1c < 8 Result Component 8.7( 5 11:59 AM EDT) No Madhuri Becker PharmD [...] documented as of this encounter Care Teams Fur Tinter Relationship Specialty Start Date End Date Name, MD Royal [address] [place] [address] PCP - General Family Medicine 06/16/19 Madhuri Becker, PharmD [address] [place] [address] Pharmacist Internal Medicine 03/19/23 documented as of this encounter
--- OUTSIDE RECORDS SUMMARY | 2025-11-09 11:14 | XMS_ITS | Encounter Summary ---
Author Organization [employer] Address [address] [facility] 7t [place] [address] Care Team Providers Care Dimmer Board Operator Name Role Phone Name, Royal BEATTY Primary Care Provider [phone] Madhuri Becker PharmD Unavailable [phone] Reason for Visit * Reason Comments Med Refill Encounter Details Date Type Department Care Team ([facility] Contact Info) Description 04/25/2024 Refill [facility] MED[facility]INE [address] [place] [address] Madhuri Becker, PharmD [address] [place] [address] Type 2 diabetes mellitus with stage 4 chronic kidney disease, with long-term current use of insulin ([facility]) Social History Tobacco Use Types Packs/Day Years [...] Description 11/16/2025 10:30 AM EST Medication Management [facility] [address] [place] [address] Madhuri Becker PharmD [address] [place] [address] documented as of this encounter Goals Goal [...] documented as of this encounter Care Teams Dimmer Board Operator Relationship Specialty Start Date End Date Name, MD Royal [address] [place] [address] PCP - General Family Medicine 06/16/19 Madhuri Becker, [employer] [address] [place] [address] Pharmacist Internal Medicine 03/19/23 documented as of this encounter
--- OUTSIDE RECORDS SUMMARY | 2025-11-09 11:14 | XMS_ITS | Encounter Summary ---
Author Organization [facility] Address [address] [address] Phone Care Team Providers Care Professor Of Religion Name Role Phone Name, Royal BEATTY Primary Care Provider [phone] Encounter Details Date Type Department Care Team (Late st Contact Info) Description 05/15/2024 Documentation Only [facility] [address] [place] [address] Cruz, [place] [address] [place] [phone] Social History Tobacco Use Types Packs/Day Years [...] visit [facility] V[facility] Access Center [address] [place] [address] 12/21/2025 3:30 PM EST Office Visit [facility] Of [address] [place] [address] Abiel Gross MD [address] [place] [address] [place] [address] documented as of this encounter Visit Diagnoses Not on filedocumented in this encounter Care Teams Professor Of Religion Relationship Specialty Start Date End Date Name, MD Royal [address] [place] [phone] PCP - General 09/23/19 documented as of this encounter
--- OUTSIDE RECORDS SUMMARY | 2025-11-09 11:14 | XMS_ITS | Encounter Summary ---
Author Organization [facility] Address [address] [address] Phone Care Team Providers Care Oxygen System Tester Name Role Phone Name, Royal BEATTY Primary Care Provider [phone] Encounter Details Date Type Department Care Team (Late st Contact Info) Description 03/03/2025 Documentation Only [facility] [address] [place] [phone] Cruz, [place] [address] [place] [phone] Social History Tobacco Use Types Packs/Day Years [...] visit [facility] V[facility] Access Center [address] [place] [address] 12/21/2025 3:30 PM EST Office Visit [facility] [address] [place] [address] Abiel Gross MD [address] [place] [address] [place] [address] documented as of this encounter Visit Diagnoses Not on filedocumented in this encounter Care Teams Oxygen System Tester Relationship Specialty Start Date End Date Name, MD Royal [address] [place] [address] [phone] PCP - General 09/23/19 documented as of this encounter
--- OUTSIDE RECORDS SUMMARY | 2025-11-09 11:15 | XMS_ITS | Encounter Summary ---
Author Organization [facility] Address [address] [address] Phone Care Team Providers Care Telecommunications Equipment Installer Name Role Phone Name, Royal BEATTY Primary Care Provider Encounter Details Date Type Department Care Team (Late st Contact Info) Description 03/20/2025 Documentation Only [facility] [address] [place] [phone] Cruz, [place] [address] [place] [phone] Social History Tobacco Use Types Packs/Day [...] visit [facility] [address] [place] [id number] 12/21/2025 3:30 PM EST Office Visit [facility] [address] [place] [phone] Abiel Gross MD [address] [place] [address] [place] [phone] documented as of this encounter Visit Diagnoses Not on filedocumented in this encounter Care Teams Telecommunications Equipment Installer Relationship Specialty Start Date End Date Name, MD Royal [address] [place] [phone] PCP - General 09/23/19 documented as of this encounter
--- OUTSIDE RECORDS SUMMARY | 2025-11-09 11:15 | XMS_ITS | Clinical Summary ---
Author Organization [employer] Address [address] [facility] [address] [place] [address] Care Team Providers Care Pulmonology Technician Name Role Phone Name, Royal BEATTY Primary Care Provider [phone] Madhuri Becker PharmD Unavailable [phone] Allergies No known active allergies Medications metoprolol tartrate (Lopressor) 25 MG tablet 2 Active cholecalciferol (Vitamin D-3) 25 MCG tablet Take 25 mcg by mouth in the morning. 2 Active furosemide (Lasix) 40 MG tablet 2 Active calcitriol (Rocaltrol) 0.25 MCG capsule Take 0.25 mcg by mouth Once per day. 3 Active albuterol (Ventolin HFA) 108 (90 Base) MCG/ACT inhalerIndication s:Viral URI Inhale 2 puffs every 6 (six) hours if needed for wheezing or shortness of breath. 18 g 1 4 Active Aspirin Low Dose 81 MG EC tabletIndications :Essential hypertension TAKE 1 TABLET BY MOUTH EVERY EVENING 90 tablet 3 5 Active levothyroxine (Synthroid, Levoxyl) 25 MCG tabletIndications :Essential hypertension TAKE 1 TABLET BY MOUTH EVERY MORNING 90 tablet 3 5 Active Continuous Glucose Customs Guard (FreeStyle Zoraida 3 Lemont) device 1 each Once per day. Use as directed for CGM 1 each 5 Active Continuous Glucose Sensor (FreeStyle Zoraida 3 Plus Sensor) misc Apply 1 every 15 days as directed for CGM 2 each 5 Active glucose blood (FreeStyle Precision Balaji Test) test stripIndications: Type 2 diabetes mellitus with stage 4 chronic kidney disease, with long-term current use of insulin ([facility]) Use to test blood sugar up to 3 times daily, as directed 100 each 5 Active Breo Ellipta 100-25 MCG/ACT aerosol powder 5 Active glucose 4 g chewable tabletIndications :Type 2 diabetes mellitus with stage 4 chronic kidney disease, with long-term current use of insulin ([facility]) Chew 4 tablets (16 g) if needed for low blood sugar. (<70 mg/dL). Recheck BG after 15 minutes and repeat treatment as needed & as directed. 20 tablet 5 5 04/16/20 26 Active Tirzepatide (Mounjaro) 15 MG/0.5ML solution auto-injector Inject 15 mg under the skin 1 (one) time per week. 2 mL 11/06/2025 11:57 AM EST 5 Active Diclofenac Sodium 1 % gel Apply 2 g topically if needed in the morning, at noon, in the evening, and at bedtime (pain). 150 g 3 5 Active rosuvastatin (Crestor) 10 MG tabletIndications :Essential hypertension TAKE 1 TABLET BY MOUTH EVERY MORNING 90 tablet 1 5 Active amLODIPine (Norvasc) 2.5 MG tabletIndications :Essential hypertension TAKE 1 TABLET BY MOUTH EVERY MORNING 90 tablet 1 5 Active TRUEplus Lancets 33G miscIndications:T ype 2 diabetes mellitus with stage 4 chronic kidney disease, with long-term current use of insulin ([facility]) USE DIRECTED TO TEST BLOOD SUGAR THREE TIMES DAILY 100 each 5 Active acetaminophen (Tylenol 8 Hour) 650 MG ER tablet TAKE 1 TABLET BY MOUTH EVERY 8 HOURS NEEDED FOR MILD PAIN, DO NOT BREAK, CRUSH, DISSOLVE OR CHEW 60 tablet 1 5 Active Pauline-Dryl 25 MG tabletIndications :Generalized pruritus TAKE 1 TABLET BY MOUTH AT BEDTIME NEEDED FOR SLEEP 30 tablet 5 5 Active losartan (Cozaar) 100 MG tablet TAKE 1 TABLET BY MOUTH EVERY MORNING 30 tablet 5 5 Active insulin degludec (Tresiba FlexTouch) 200 UNIT/ML injection Inject 10 Units under the skin in the morning. 9 mL 1 5 Active insulin pen needle (BD Pen Needle Rachele U/F) 32G x 4 mm miscIndications:T ype 2 diabetes mellitus with stage 4 chronic kidney disease, with long-term current use of insulin ([facility]) Use to inject insulin once daily 100 each 3 5 Active loratadine (Claritin) 10 MG tablet Take 1 tablet (10 mg) by mouth Once per day. 30 tablet 11 10/09/2025 1:56 PM EST 5 09/01/20 26 Active gabapentin (Neurontin) 100 MG capsule Take 1 capsule (100 mg) by mouth at bedtime. 30 capsule 5 10/26/2025 3:59 PM EST 5 Active calcium carbonate 1500 (600 Ca) MG tabletIndications :CKD stage 4 due to type 2 diabetes mellitus (HCC) TAKE 1 TABLET BY MOUTH TWICE DAILY IN THE MORNING AND IN THE EVENING WITH FOOD 180 tablet 3 10/26/2025 3:59 PM EST 5 Active omeprazole (PriLOSEC) [address] capsule TAKE 1 CAPSULE BY MOUTH EVERY MORNING (30 TO 60 MINUTES BEFORE A MEAL) 90 capsule 1 5 Active Active Problems Problem Noted Date [...] Encounters Date Type Department Care Team Description 11/06/2025 Telephone [facility] [address] [place] [phone] Royal Pitt MD Med Refill (Pt requesting med refill for glucose sensors pt needs the sensors ) 10/06/2025 Refill [facility] [address] [place] [address] Royal Pitt MD CKD stage 4 due to type 2 diabetes mellitus (HCC) 09/17/2025 Refill [facility] [address] [place] [phone] Royal Pitt MD 09/04/2025 Orders Only [facility] [address] [place] [phone] Royal Pitt MD 09/02/2025 Telephone [facility] [address] [place] [phone] Royal Pitt MD Durable Medical Equipment 09/01/2025 10:45 AM EDT Office Visit [facility] [address] [place] [phone] NameRoyal MD Type 2 diabetes mellitus with stage 5 chronic kidney disease not on chronic dialysis, with long-term current use of insulin (HCC) (Primary Dx); Generalized pruritus; Chronic bilateral low back pain with left-sided sciatica; Encounter for immunization 09/01/2025 Travel 08/27/2025 Travel 08/14/2025 Refill [facility] [address] [place] [address] Remedios Marquis DO from Last 3 Months Immunizations Immunization Administration [...] Description 11/16/2025 10:30 AM EST Medication Management [facility] [address] [place], [place] [phone] Madhuri Becker, PharmD [address] [place], [place] [phone] Health Maintenance Due Date Last Done Comments Hepatitis C Screening 1963 Diabetes: Foot Exam 08/31/2024 08/31/2023, 08/31/2023, 08/31/2023, Additional history exists Lipid Panel 05/15/2025 05/15/2024, 07/2023, 06/27/2022 COVID-19 Vaccine ( season) 2025 08/25/2024, 03/30/2023, 02/07/2022, Additional history exists Eye Exam 07/24/2025 07/24/2024, 03/2024, 07/24/2024, Additional history exists Diabetes: Hemoglobin A1C 11/27/2025 025, 03/19/2025, 12/04/2024, Additional history exists Depression Screening 04/16/2026 04/16/2025, 04/16/20 25 SDOH Screening 04/16/2026 04/16/2025 Alcohol/Substance Use Screening 09/01/2026 09/01/2025 Tobacco Screening 09/01/2026 09/01/2025 Mammogram 09/04/2026 09/04/2025, 08/19, 08/22/2023, Additional history exists DTaP/Tdap/Td Vaccines (2 [...] Component 8.7( 5 11:59 AM EDT) No Puia, Madhuri, PharmD Record your blood sugar as directed Result Component No Puia, Madhuri, PharmD Note: Use CGM, as instructed, ensuring sensor is scanned at least Q8hr. Check BG via fingerstick as needed & as directed. Help patients manage their type 2 diabetes Care Plan Help patients manage their type 2 diabetes No Puia, Madhuri, PharmD Weekly blood pressure task Care Plan Weekly blood pressure task No Puia, Madhuri, PharmD Help patients manage their type 2 diabetes Care Plan Help patients manage their type 2 diabetes No Puia, Madhuri, PharmD Patient has diabetic eye disease Care Plan Patient has diabetic eye disease No Puia, Madhuri, PharmD Help patients manage their type 2 diabetes Care Plan Help patients manage their type 2 diabetes No Puia, Madhuri, PharmD Patient has chronic kidney disease Care Plan Patient has chronic kidney disease No Puia, Madhuri, PharmD Help patients manage their type 2 diabetes Care Plan Help patients manage their type 2 diabetes No Puia, Madhuri, PharmD Patient has diabetic neuropathy Care Plan Patient has diabetic neuropathy No Puia, Madhuri, PharmD Weekly blood pressure task Care Plan Weekly blood pressure task No Puia, Madhuri, PharmD Weekly blood pressure task Care Plan Weekly blood pressure task No Puia, Madhuri, PharmD Weekly blood pressure task Care Plan Weekly blood pressure task No Puia, Madhuri, PharmD Patient has diabetic eye disease Care Plan Patient has diabetic eye disease No Puia, Madhuri, PharmD Patient has diabetic eye disease Care Plan Patient has diabetic eye disease No Puia, Madhuri, PharmD Patient has diabetic eye disease Care Plan Patient has diabetic eye disease No Puia, Madhuri, PharmD Patient has chronic kidney disease Care Plan Patient has chronic kidney disease No Puia, Madhuri, PharmD Patient has chronic kidney disease Care Plan Patient has chronic kidney disease No Puia, Madhuri, PharmD Patient has chronic kidney disease Care Plan Patient has chronic kidney disease No Puia, Madhuri, PharmD Patient has diabetic neuropathy Care Plan Patient has diabetic neuropathy No Puia, Madhuri, PharmD Patient has diabetic neuropathy Care Plan Patient has diabetic neuropathy No Puia, Madhuri, PharmD Patient has diabetic neuropathy Care Plan Patient has diabetic neuropathy No Puia, Madhuri, PharmD Weekly blood pressure task Care Plan Weekly blood pressure task No Elaine, Maggie Weekly blood pressure task Care Plan Weekly blood pressure task No Elaine, Maggie Weekly blood pressure task Care Plan Weekly blood pressure task No Elaine, Maggie Weekly blood pressure task Care Plan Weekly blood pressure task No Elaine, Maggie Patient has diabetic eye disease Care Plan Patient has diabetic eye disease No Elaine, Maggie Patient has diabetic eye disease Care Plan Patient has diabetic eye disease No Elaine, Maggie Patient has diabetic eye disease Care Plan Patient has diabetic eye disease No Elaine, Maggie Patient has diabetic eye disease Care Plan Patient has diabetic eye disease No Elaine, Maggie Patient has chronic kidney disease Care Plan Patient has chronic kidney disease No Elaine, Maggie Patient has chronic kidney disease Care Plan Patient has chronic kidney disease No Elaine, Maggie Patient has chronic kidney disease Care Plan Patient has chronic kidney disease No Elaine, Maggie Patient has chronic kidney disease Care Plan Patient has chronic kidney disease No Elaine, Maggie Patient has diabetic neuropathy Care Plan Patient has diabetic neuropathy No Elaine, Maggie Patient has diabetic neuropathy Care Plan Patient has diabetic neuropathy No Elaine, Maggie Patient has diabetic neuropathy Care Plan Patient has diabetic neuropathy No Elaine, Maggie Patient has diabetic neuropathy Care Plan Patient has diabetic neuropathy No Elaine, Maggie Weekly blood pressure task Care Plan Weekly blood pressure task No Khushbu Ortega Weekly blood pressure task Care Plan Weekly blood pressure task No Khushbu Ortega Weekly blood pressure task Care Plan Weekly blood pressure task No Khushbu Ortega Weekly blood pressure task Care Plan Weekly blood pressure task No Khushbu Ortega Patient has diabetic eye disease Care Plan Patient has diabetic eye disease No Khushbu Oretga Patient has diabetic eye disease Care Plan Patient has diabetic eye disease No Khushbu Ortega Patient has diabetic eye disease Care Plan Patient has diabetic eye disease No Khushbu Ortega Patient has diabetic eye disease Care Plan Patient has diabetic eye disease No Khushbu Ortega Patient has chronic kidney disease Care Plan Patient has chronic kidney disease No Khushbu Ortega Patient has chronic kidney disease Care Plan Patient has chronic kidney disease No Khushbu Ortega Patient has chronic kidney disease Care Plan Patient has chronic kidney disease No Khushbu Ortega Patient has chronic kidney disease Care Plan Patient has chronic kidney disease No Khushbu Ortega Patient has diabetic neuropathy Care Plan Patient has diabetic neuropathy No Khushbu Ortega Patient has diabetic neuropathy Care Plan Patient has diabetic neuropathy No Khushbu Ortega Patient has diabetic neuropathy Care Plan Patient has diabetic neuropathy No Khushbu Ortega Patient has diabetic neuropathy Care Plan Patient has diabetic neuropathy No Khushbu Ortega Procedures Procedure Name Priority Date/Time Associated Diagnosis Comments BI MAMMOGRAM SCREENING TOMOSYNTHESIS BILATERAL Routine 09/04/2025 10:20 AM EDT POCT GLUCOSE (CPT-66861) Routine 09/01/2025 11:04 AM EDT Type 2 diabetes mellitus with stage 5 chronic kidney disease not on chronic dialysis, with long-term current use of insulin (HCC) POCT GLYCATED HEMOGLOBIN, TOTAL Routine 08/27/2025 11:59 AM EDT Type 2 diabetes mellitus with stage 4 chronic kidney disease, with long-term current use of insulin (HCC) LIPID PANEL, STANDARD Routine 05/15/2024 9:10 AM EDT Type 2 diabetes mellitus with stage 4 chronic kidney disease, with long-term current use of insulin (CMS/HCC) Acute non-recurrent maxillary sinusitis Chronic kidney disease, stage 4 (severe) (CMS/HCC) from Last 3 Months or Most Recently Relevant to Health Maintenance Results * BI Mammogram Screening Tomosynthesis Bilateral (09/04/2025 10:20 AM EDT) Anatomical Region Laterality Modality Breast Bilateral Mammography 09/04/2025 10:2 0 AM EDT Narrative 09/07/2025 4:41 PM EDT [facility] [address] [place] [address] Mammography Report Signed with Callie Patient: Luz Elena Montgomery MR#: [id number] : 1945 Acct:[id number] Age/Sex: 80 / F ADM Date: 09/04/25 Loc: HO.MAMMO Attending Dr: Royal Pitt MD Ordering Physician: Royal Pitt MD Results: 1Negative Date of Service: 09/04/25 Follow Up: 1 Year From Orig ina Mammogram Procedure(s): MM tomosynthesis screening BI Accession Number(s): [id number] cc: Yoandy,Royal BEATTY Reason For Exam: SCREENING ADDENDUM ADDENDUM #1 ADDENDUM: Due to a software issue this mammogram was reviewed a second time. The findings and recommendations remain the same. OVERALL ASSESSMENT: Category 1: Negative RECOMMENDATION: 1 year F/U Electronically signed by: Jane Douglas DO 09/21/2025 02:36 PM [facility] Addendum Dictated By: Jane Douglas DO Addendum Signed By: <Electronically signed by Jane Douglas DO in OV> 09/21/25 1436 Addendum Cosigned By: DD/ TD/TT: 09/04/25 EXAMINATION: MM SCREENING DIGITAL BREAST TOMOSYNTHESIS, LEFT CLINICAL INFORMATION: Screening. Asymptomatic. Right mastectomy. COMPARISON: Mammography: Comparison is made with available priors TECHNIQUE: Digital breast mammography with tomosynthesis is performed in both the craniocaudal and mediolateral oblique views along with computer-aided detection (CAD). FINDINGS: There are scattered areas of fibroglandular density. There are no significant masses, abnormal calcifications, or other abnormalities. MM/MM tomosynthesis screening BI IMPRESSION: No mammographic evidence of malignancy. ASSESSMENT: BI-RADS Category 1: Negative RECOMMENDATION: Routine annual mammography screening. 1 year F/U This examination should not preclude the clinical evaluation of a suspicious palpable abnormality. This patient's information was entered into a reminder system with a target due date for their next mammogram. Electronically signed by: Jane Douglas DO 09/07/2025 04:38 PM EDT RP Dictated By: Jane Douglas DO Signed By: <Electronically signed by Jane Douglas DO in OV> 09/07/25 1638 DD/ 19 TD/TT: 09/04/251038 Communications Professional: Procedure Note Donotuseinterpreter, Image - 09/21/2025 [facility] [address] [place] [address] Mammography Report Signed with Addtiffanie Patient: Luz Elena Montgomery AMR#: [id number] : 1945cct:[id number] Age/Sex: 80 / FADM Date: 09/04/25 Loc: HO.MAMMO Attending Dr: Royal Pitt MD Ordering Physician: Royal Pittesults: 1Negative Date of Service: 09/04/25Follow Up: 1 Year From Orig inal Mammogram Procedure(s): MM tomosynthesis screening BI Accession Number(s): [id number] cc: Royal Pitt MD Reason For Exam: SCREENING ADDENDUM ADDENDUM #1 ADDENDUM: Due to a software issue this mammogram was reviewed a second time. The findings and recommendations remain the same. OVERALL ASSESSMENT: Category 1: Negative RECOMMENDATION: 1 year F/U Electronically signed by: Jane Douglas DO 09/21/2025 02:36 PM EST RP Addendum Dictated By: Jane Douglas DO Addendum Signed By: <Electronically signed by DO Coby in OV> 09/21/25 1436 Addendum Cosigned By: DD/ TD/TT: 09/04/25 EXAMINATION: MM SCREENING DIGITAL BREAST TOMOSYNTHESIS, LEFT CLINICAL INFORMATION: Screening. Asymptomatic. Right mastectomy. COMPARISON: Mammography: Comparison is made with available priors TECHNIQUE: Digital breast mammography with tomosynthesis is performed in both the craniocaudal and mediolateral oblique views along with computer-aided detection (CAD). FINDINGS: There are scattered areas of fibroglandular density. There are no significant masses, abnormal calcifications, or other abnormalities. MM/MM tomosynthesis screening BI IMPRESSION: No mammographic evidence of malignancy. ASSESSMENT: BI-RADS Category 1: Negative RECOMMENDATION: Routine annual mammography screening. 1 year F/U This examination should not preclude the clinical evaluation of a suspicious palpable abnormality. This patient's information was entered into a reminder system with a target due date for their next mammogram. Electronically signed by: Jane Douglas DO 09/07/2025 04:38 PM EDT RP Dictated By: Jane Douglas DO Signed By: <Electronically signed by Jane Douglas DO in OV> 09/07/25 1638 DD/ 1020 TD/TT: 09/04/25 1039 Communications Professional: us Royal Pitt MD IMG BI PROCEDURES Edited Result - Final * POCT Glucose (09/01/2025 11:04 AM EDT) Glucose Blood, POC 163 60 - 200 mg/dL QC Media Lot # [id number] Lot# Expiration Date 3 Blood Capillary blood specimen / Unknown 09/01/2025 11:04 AM EDT Result Doyle Pitt MD POINT OF CARE TEST ENTER/EDIT OR DERABLES Final Result * (ABNORMAL) POCT Hgb A1c (08/27/2025 11:59 AM EDT) Hemoglobin A1C 8.7(A) 4.0 - 5.7 % Blood 08/27/2025 11:5 9 AM EDT Result Doyle Pitt MD POINT OF CARE TEST ENTER/EDIT OR DERABLES Final Result * (ABNORMAL) Lipid Panel, Standard (05/15/2024 9:10 AM EDT) Triglycerides 170(H) <150 mg/dL [facility] Comment:Desirable Triglyceri de: less than 150 mg/dLBorderline High Triglyceride 150-199 mg/dLHigh Triglyceride: 200-499 mg/dLVery High Triglyceride: greater than or equal to 5OO mg/dL Cholesterol 122 <200 mg/dL [facility] Comment:Desirable Cholestero l: less than 200 mg/dLBorderline High Cholesterol: 200-239 mg/dLHigh Cholesterol: greater than 239 mg/dL LDL Cholesterol Calculated 48 <100 mg/dL [facility] Comment:Desirable LDL: less than 100 mg/dLNear Optimal/Above Optimal LDL: 110- 129 mg/dLBorderline High LDL: 130-159 mg/dLHigh LDL: 160-189 mg/dLVery High LDL: greater than or equal to 190 mg/dL HDL Cholesterol 40(L) >40 mg/dL [facility] Comment:Desirable HDL: great er than 40 mg/dL Note: This HDL assay may give artificially low results in patients with liver disease. Blood Venous blood specimen / Unknown 05/15/2024 9:10 AM EDT 05/15/2024 11:17 AM EDT us Royal Name LAB BLOOD ORDERABLES Final Resul t [facility] [address] [place] [phone] from Last 3 Months or Most Recently Relevant to Health Maintenance Additional Health Concerns Active Problems Noted Date Diagnosed Date Help patients manage their type 2 diabetes 09/30 Weekly blood pressure task 09/30/2025 Help patients manage their type 2 diabetes 09/30 Patient has diabetic eye disease 09/30/2025 Help patients manage their type 2 diabetes 09/30 Patient has chronic kidney disease 09/30/2025 Help patients manage their type 2 diabetes 09/30 Patient has diabetic neuropathy 09/30/2025 Weekly blood pressure task 09/30/2025 Weekly blood pressure task 09/30/2025 Weekly blood pressure task 09/30/2025 Patient has diabetic eye disease 09/30/2025 Patient has diabetic eye disease 09/30/2025 Patient has diabetic eye disease 09/30/2025 Patient has chronic kidney disease 09/30/2025 Patient has chronic kidney disease 09/30/2025 Patient has chronic kidney disease 09/30/2025 Patient has diabetic neuropathy 09/30/2025 Patient has diabetic neuropathy 09/30/2025 Patient has diabetic neuropathy 09/30/2025 Weekly blood pressure task 10/05/2025 Weekly blood pressure task 10/05/2025 Weekly blood pressure task 10/05/2025 Weekly blood pressure task 10/05/2025 Patient has diabetic eye disease 10/05/2025 Patient has diabetic eye disease 10/05/2025 Patient has diabetic eye disease 10/05/2025 Patient has diabetic eye disease 10/05/2025 Patient has chronic kidney disease 10/05/2025 Patient has chronic kidney disease 10/05/2025 Patient has chronic kidney disease 10/05/2025 Patient has chronic kidney disease 10/05/2025 Patient has diabetic neuropathy 10/05/2025 Patient has diabetic neuropathy 10/05/2025 Patient has diabetic neuropathy 10/05/2025 Patient has diabetic neuropathy 10/05/2025 Weekly blood pressure task 11/06/2025 Weekly blood pressure task 11/06/2025 Weekly blood pressure task 11/06/2025 Weekly blood pressure task 11/06/2025 Patient has diabetic eye disease 11/06/2025 Patient has diabetic eye disease 11/06/2025 Patient has diabetic eye disease 11/06/2025 Patient has diabetic eye disease 11/06/2025 Patient has chronic kidney disease 11/06/2025 Patient has chronic kidney disease 11/06/2025 Patient has chronic kidney disease 11/06/2025 Patient has chronic kidney disease 11/06/2025 Patient has diabetic neuropathy 11/06/2025 Patient has diabetic neuropathy 11/06/2025 Patient has diabetic neuropathy 11/06/2025 Patient has diabetic neuropathy 11/06/2025 Insurance [facility] [employer] (O D-SNP) [facility] STANDARD Care Teams Pulmonology Technician Relationship Specialty Start Date End Date Name, MD Royal [address] [place] [address] PCP - General Family Medicine 06/16/19 Madhuri Becker PharmD [address] [place], [place] Pharmacist Internal Medicine 03/19/23
--- OUTSIDE RECORDS SUMMARY | 2025-11-09 11:15 | XMS_ITS | Encounter Summary ---
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 Operator Name Role Phone Name, Royal BEATTY Primary Care Provider [phone] Madhuri Becker PharmD Unavailable [phone] Reason for Visit * Reason Onset Date Comments Med Refill 11/06/2025 Pt requesting me d refill for glucose sensors pt needs the sensors Encounter Details Date Type Department Care Team ([facility] st Contact Info) Description 11/06/2025 Telephone [facility] [address] [place] [address] Name, MD Royal [address] [place] [address] Med Refill (Pt requesting med refill for glucose sensors pt needs the sensors ) Social History Tobacco Use Types Packs/Day Years [...] the past 12 months, has t he [employer], gas, oil or water [employer] threatened to shut off services in your [...] encounter Miscellaneous Notes * Telephone Encounter - Karina Ambriz RN - 11/06/2025 12:14 PM EST TC placed to [facility] pharmacy to determine if refills available on Continuous Glucose Sensor (FreeStyleLibre 3 Plus Sensor) mis. Per pharmacy, refills available, but PA required. Xiomara states pt has refills available on test strips and they will fill now so pt has a way to test blood sugar. PA completed for CGM sensors and faxed to [facility]. Confirmation received and placed in medical records bin for scanning. TC placed to pt via [employer] grinder set up operator thread tool (ID#[id number]) to inform and advise of above pharmacy message. Spoke with pt's AQUATIC SCIENTIST (on HIPAA). Advised AQUATIC SCIENTIST Maco that CGM sensors require PA. Advised PA completed and sent to insurance company. Advised waiting approval or denial. Advised in the meantime, test strips being prepared in the pharmacy. Maco verbalized understanding and denies questions at this time. * Telephone Encounter - Khushbuyo Ortega - 11/06/2025 11:37 AM EST Pt requesting med refill for glucose sensors pt needs the sensors documented in this encounter Plan of Treatment Upcoming Encounters Date Type Department Care Team (Late st Contact Info) Description 11/16/2025 10:30 AM EST Medication Management [facility] [address], [place] [id number] PuiaHumbertoMadhuri, PharmD [address] [place] [address] documented as of this encounter Goals Goal [...] Care Plan Weekly blood pressure task No Elaine Maggie Weekly blood pressure task Care Plan Weekly blood pressure task No ElaineLuis FMaggie Weekly blood pressure task Care Plan Weekly blood pressure task No ElaineLuis FMaggie Weekly blood pressure task Care Plan Weekly [...] Care Plan Patient has diabetic neuropathy No Maggie Elaine Patient has diabetic neuropathy Care Plan Patient has diabetic neuropathy No Maggie Elaine Patient has diabetic neuropathy Care Plan Patient has diabetic neuropathy No Maggie Elaine Weekly blood pressure task Care Plan Weekly [...] Patient has diabetic neuropathy No Khushbu Ortega documented as of this encounter Visit Diagnoses Not on filedocumented in this encounter Additional Health Concerns Active Problems Noted Date [...] neuropathy 11/06/2025 Patient has diabetic neuropathy 11/06/2025 Assessment Noted Time PHQ-9 Depression Total Score: 3 04/16/20 25 9:38 AM EDT documented as of this encounter Care Teams Heavy Forging Machine Operator Relationship Specialty Start Date End Date Name, MD Royal [address] [place] [id number] PCP - General Family Medicine 06/16/19 Madhuri Becker PharmD [address] [place] [id number] Pharmacist Internal Medicine 03/19/23 documented as of this encounter
== END 2025-11-09 10:11 | disposition home or self-care (01) ==
PROVIDERS: PCP Internal Medicine Geriatric Medicine; Visit Provider Nurse Practitioner Family
DX: J45.909 Unspecified asthma, uncomplicated (principal); R06.09 Other forms of dyspnea; J94.8 Other specified pleural conditions; R06.00 Dyspnea, unspecified
CPT/HCPCS: 99214

== ENCOUNTER → 2025-11-09 09:43 | Outpatient (BNVA) | payer OTHER, SELFPAY | PROVIDERS: PCP Internal Medicine Geriatric Medicine; Visit Provider Nurse Practitioner Family | DX: J45.909 Unspecified asthma, uncomplicated (principal); R06.09 Other forms of dyspnea; J94.8 Other specified pleural conditions; Z87.891 Personal history of nicotine dependence | CPT/HCPCS: 99212 ==

== ENCOUNTER → 2025-11-18 19:49 | Outpatient (BNV) | payer OTHER, SELFPAY | PROVIDERS: Admitting Provider Physician Assistant Medical; Emergency Provider Emergency Medicine; PCP Internal Medicine Geriatric Medicine; Visit Provider Internal Medicine | DX: R10.13 Epigastric pain (principal) | CPT/HCPCS: 93010 ==

== ENCOUNTER → 2025-11-18 23:00 | Outpatient (BNV) | payer OTHER, SELFPAY | PROVIDERS: Emergency Provider Student in an Organized Health Care Education/Training Program; PCP Internal Medicine Geriatric Medicine; Visit Provider Radiology Diagnostic Radiology | DX: K82.8 Other specified diseases of gallbladder (principal) | CPT/HCPCS: 74176 ==